=== PATIENT | female | born 1965 | race African-American/Black ===

== ENCOUNTER 2016-06-04 12:30 | Emergency (ER) | payer OTHER ==
[2016-06-04] MEDS ORDERED: Ondansetron ODT TAB* 4 MG PO ONE (12:45)
[2016-06-04 13:12] LABS: Hematocrit 36 % (35-47); Hemoglobin 11.8 g/dl (12.0-16.0); Mean Corpuscular HGB Conc 33 g/dl (31-36); Mean Corpuscular Hemoglobin 28 pg (27-31); Mean Corpuscular Volume 85 fL (80-97); Mean Platelet Volume 7 um3 (7.4-10.4); Red Blood Count 4.18 10^6/ul (4.0-5.4); Red Cell Distribution Width 13 % (10.5-15); White Blood Count 5.9 10^3/ul (3.5-10.8)
[2016-06-04 13:20] LABS: Urine Bacteria 1+ (Absent); Urine Bilirubin Negative (Negative); Urine Glucose Negative (Negative); Urine Nitrite Positive (Negative)
[2016-06-04 13:26] LABS: Albumin 4.5 g/dL (3.2-5.2); C Reactive Protein 4.17 mg/L (< 5.00); Calcium 10.2 mg/dL (8.6-10.3); EGFR Non-African American 80.9 (>60); Globulin 3.8 g/dL (2-4); Potassium 3.7 mmol/L (3.5-5.0); Total Bilirubin 0.4 mg/dL (0.2-1.0); Total Protein 8.3 g/dL (6.4-8.9)
[2016-06-04] MEDS ORDERED: Sulfamethox/Trimethoprim DS 800/160* TAB PO ONE (13:41)
[2016-06-04] MEDS ORDERED: metroNIDAZOLE TAB* 250 MG PO ONE (13:42)
--- NOTE | 2016-06-04 13:59 | ED ---
Leopoldo Lee Claudia, scribed for Robert Sánchez MD on 06/04/16 at 1247 . GI/ HPI - HPI Summary HPI Summary: 50 year old female presents to the ED with GIGU Sx. Pt notes dysuria, increase in frequency, nausea, dull diffuse abd pain, and yellow vaginal discharge. Pt notes gradual onset of Sx over the past week. She states that she has 1 sexual partner. Pt notes her last menstrual cycle was at the end of April. - History of Current Complaint Chief Complaint: EDUrogenitalProblems Time Seen by Provider: 06/04/16 12:38 Stated Complaint: POSSIBLE UTI Hx Obtained From: Patient Onset/Duration: Started Days Ago, Still Present Timing: Lasting Days Pain Intensity: 7 Location of Pain: Diffuse - abd pain Pain Characteristics: Dull Associated Signs and Symptoms: Positive: Nausea, Discharge, Dysuria, Abdominal Pain Additional Signs & Symptoms: Positive: Vaginal Discharge - Allergy/Home Medications Allergies/Adverse Reactions: Allergies Allergy/AdvReac Type Severity Reaction Status Date / Time SHRIMP Allergy Swelling Uncoded 06/04/16 12:32 Of Face,Lips,& Throat PMH/Surg Hx/FS Hx/Imm Hx Previously Healthy: Yes Endocrine/Hematology History: Denies: Hx Anticoagulant Therapy, Hx Diabetes, Hx Systemic Lupus Erythematosus, Hx Thyroid Disease Cardiovascular History: Reports: Hx Hypertension, Other Cardiovascular Problems/ Disorders - CARDIO MYOPATHY Denies: Hx Pacemaker/ICD Respiratory History: Denies: Hx Asthma, Hx Chronic Obstructive Pulmonary Disease (COPD) History: Denies: Hx Dialysis, Hx Renal Disease Musculoskeletal History: Denies: Hx Rheumatoid Arthritis Neurological History: Denies: Hx Dementia, Hx Seizures Psychiatric History: Denies: Hx Substance Abuse - Cancer History Hx Chemotherapy: No Hx Radiation Therapy: No - Surgical History Surgery Procedure, Year, and Place: Bilateral knee surgeries age 13, Infectious Disease History: No Infectious Disease History: Denies: Traveled Outside the [place] in Last 30 Days - Family History Known Family History: Positive: Hypertension, Diabetes - Social History Occupation: Employed Full-time Lives: With Family Alcohol Use: None Substance Use Type: Reports: None Smoking Status (MU): Never Smoked Tobacco Review of Systems Constitutional: Negative Eyes: Negative ENT: Negative Cardiovascular: Negative Respiratory: Negative Positive: Abdominal Pain, Nausea Positive: burning, dysuria, discharge, urgency Musculoskeletal: Negative Skin: Negative Neurological: Negative Psychological: Normal All Other Systems Reviewed And Are Negative: Yes Physical Exam - Summary Physical Exam Summary: VITAL SIGNS: Reviewed. GENERAL: Patient is a well developed and nourished who is lying comfortable in the stretcher. Patient is not in any acute respiratory distress. HEAD AND FACE: Normocephalic and atraumatic. EYES: PERRLA, EOMI x 2, No injected conjunctiva. EARS: Hearing grossly intact. Ear canals and tympanic membranes are WNL. MOUTH: Oropharynx within normal limits. NECK: Supple, trachea is midline, no adenopathy, no JVD. CHEST: Symmetric, no tenderness at palpation LUNGS: Clear to auscultation bilaterally. No wheezing or crackles. CVS: RRR,, S1 and S2 present, no murmurs or gallops appreciated. ABDOMEN: Soft, non-tender. No signs of distention. Positive bowel sounds. No rebound no guarding, and no masses palpated. No abdominal bruit or pulsations. EXTREMITIES: FROM in all major joints, no edema, no cyanosis or clubbing. NEURO: Alert and oriented x 3. No acute neurological deficits. Speech is normal. SKIN: Dry and warm RN COMMUNITY: Female building certifier is present during the examination. External genitalia: within normal limits. No rashes, lesions or ecchymosis. Speculum exam: vaginal kwon with no lesions, masses, or rashes. Positive mild white discharge. Cervix normal. No CMTs. No adnexal masses. All cultures were collected and send to the lab. Triage Information Reviewed: Yes Vital Signs On Initial Exam: Initial Vitals Temp Pulse Resp BP Pulse Ox 98.0 F 76 18 144/91 100 06/04/16 12:32 06/04/16 12:32 06/04/16 12:32 06/04/16 12:32 06/04/16 12:32 Vital Signs Reviewed: Yes Diagnostics - Vital Signs Vital Signs Temp Pulse Resp BP Pulse Ox 06/04/16 12:32 98.0 F 76 18 144/91 100 - Laboratory Result Diagrams: 06/04/16 13:01 06/04/16 13:01 Lab Statement: Any lab studies that have been ordered have been reviewed, and results considered in the medical decision making process. Re-Evaluation - Re-Evaluation 1 Re-Evaluation Time: 13:54 Change: Improved Comment: Urine Analysis results are discussed with the patient. She notes that she is feeling much better and is ready to be d/c home. GIGU Course/Dx - Course Assessment/Plan: 50 YEAR OLD FEMALE PRESNETS WITH A CHIEF COMPLAINT OF DYSURA, URINE FREQUENCY AND VAGINAL DISCHARGE. WORKUP WAS WITHIN NML LIMITS EXCEPT FOR HYPONATREMIA. I WILL ALSO BE TREATING PATIENT WITH METRONIDAZOLE FOR BACTERIAL VAGNIOSIS. PT WILL BE GIVEN BACTRUM FOR UTI. I DID SEND CULTURES FOR CHLAMYDIA AND TRICHOMONAS WHICH WILL BE FOLLWED BY PCP. PT ALSO BECAME NAUSEOUS AND WAS GIVEN ZOFRAN AND IMPORVED SIGNIFICANTLY. I discussed all the findings and test results with the patient and patient. Patient was instructed to return to the emergency room immediately if any of the symptoms return or worsens. They understand and agree. They were explained the possibility of an early abdominal pathology which was not detected at this time despite the physical exam and testing. They understand and agree. Abdominal exam before discharge: Soft,NT. No signs of distention. BS present. No rebound no guarding, and no masses palpated. Patient is alert and oriented. Patient is hemodynamically stable. Patient is to follow up with primary care physician . Patient and patients parents agree and understands. - Diagnoses Differential Diagnoses - Female: STD, Urinary Tract Infection, Vaginitis Provider Diagnoses: UTI (urinary tract infection), BV (bacterial vaginosis) Discharge - Discharge Plan Condition: Stable Disposition: HOME Prescriptions: Sulfamethox/Trimethoprim DS* [Bactrim DS 800/160 TAB*] 1 tab PO BID #10 tab metroNIDAZOLE TAB* [Flagyl 250 mg TAB*] 500 mg PO QID #14 tab Patient Education Materials: Urinary Tract Infection in Women (ED), Bacterial Vaginosis (ED), Sulfamethoxazole/Trimethoprim (By mouth), Metronidazole (By mouth) Referrals: Haylee Cordero MD [Primary Care Provider] - 2 Days (Follow-up ) The documentation as recorded by the Leopoldo chatterjee Claudia accurately reflects the service I personally performed and the decisions made by me, Robert Sánchez MD.
[2016-06-04 14:15] VITALS: BP 129/86
--- NOTE | 2016-06-09 09:45 | PN ---
Progress Note - Progress Note Note: Patient is on Bactrim which is shown to be sensitive on his cultures. No further action needed.
== END 2016-06-04 14:14 | disposition home or self-care (01) ==
LOC: ED 12:30
DX: N39.0 Urinary tract infection, site not specified (principal); N76.0 Acute vaginitis; I10 Essential (primary) hypertension; I42.9 Cardiomyopathy, unspecified
CPT/HCPCS: 36415; 80053; 81003; 81015; 85025; 86140; 87077; 87086; 87184; 87186; 87480; 87491; 87510; 87591; 87661; A9270-GY

== ENCOUNTER 2016-08-18 07:35 | Emergency (ER) | payer OTHER ==
[2016-08-18 08:34] LABS: Hematocrit 35 % (35-47); Hemoglobin 11.9 g/dl (12.0-16.0); Mean Corpuscular HGB Conc 34 g/dl (31-36); Mean Corpuscular Hemoglobin 29 pg (27-31); Mean Corpuscular Volume 85 fL (80-97); Mean Platelet Volume 7 um3 (7.4-10.4); Red Blood Count 4.09 10^6/ul (4.0-5.4); Red Cell Distribution Width 13 % (10.5-15); White Blood Count 3.5 10^3/ul (3.5-10.8)
[2016-08-18 08:36] LABS: Urine Bilirubin Negative (Negative); Urine Glucose Negative (Negative); Urine Nitrite Negative (Negative)
[2016-08-18] MEDS: NS 0.9% 1000 ML* 2,000 ML IV ONE ×2 (08:38→10:16)
[2016-08-18 08:50] LABS: ALT 17 U/L (7-52); AST 18 U/L (13-39); Albumin 4.3 g/dL (3.2-5.2); Alkaline Phosphatase 33 U/L (34-104); Amylase 47 U/L (29-103); Anion Gap 5 mmol/L (2-11); BUN/Creatinine Ratio 15.5 (8-20); Blood Urea Nitrogen 13 mg/dL (6-24); C Reactive Protein < 1.00 mg/L (< 5.00); CO2 Carbon Dioxide 25 mmol/L (22-32); Calcium 9.9 mg/dL (8.6-10.3); Chloride 103 mmol/L (101-111); EGFR African American 92.3 (>60); EGFR Non-African American 71.8 (>60); Glucose 97 mg/dL (70-100); Lipase 33 U/L (11.0-82.0); Potassium 3.8 mmol/L (3.5-5.0); Sodium 133 mmol/L (133-145); Total Protein 8.3 g/dL (6.4-8.9)
[2016-08-18] MEDS ORDERED: Ketorolac INJ* 30 MG/ML 1 ML VIAL IV PUSH ONE ×2 (09:42→11:15)
--- NOTE | 2016-08-18 09:49 | ED ---
Abdominal Pain/Female - HPI Summary HPI Summary: 51 female presents with complaints of LLQ pain that began yesterday afternoon while at work 08/17/16. Patient states she has been having dull achey lower abdominal pain for the past couple of weeks but nothing to the extent of this pain. The pain is described as dull ache that gets worse with movement of her legs and with position. She denies vomiting, admits to some intermittent nausea. Denies fever/chills, blood in stool and urinary symptoms. States the pain radiates into her left lower back/flank and anus. Admits to some vaginal discharge that is yellow/brown in color. Denies blood and discomfor at this time. Denies history of kidney stones. Admits to ovarian cyst history. Does not know if she is . Still has menstrual cycles LMP approximately 1 month ago. States her stool has been normal just has become more frequent. Took Tylenol PM last night for the pain and had little relief. Ate spinach for dinner however admits to eating a lot of nuts. Denies constipation. PMHx significant for cardiomyopathy and HTN. Does not admit to any GI issues. Pain is constant but has not gotten progressively worse. - History of Current Complaint Chief Complaint: EDAbdPain Stated Complaint: ABD PAIN Time Seen by Provider: 08/18/16 09:12 Hx Obtained From: Patient Hx Last Menstrual Period: Beginning of 07/2016 ?: No Onset/Duration: Sudden Onset Timing: Constant Severity Initially: Mild Severity Currently: Moderate Pain Intensity: 9 Pain Scale Used: 0-10 Numeric Location: Discrete At: LLQ Radiates: Yes Radiates to: Back, Flank Character: Sharp, Dull Aggravating Factor(s): Movement Alleviating Factor(s): Position Associated Signs and Symptoms: Positive: Nausea Allergies/Adverse Reactions: Allergies Allergy/AdvReac Type Severity Reaction Status Date / Time SHRIMP Allergy Swelling Uncoded 06/04/16 12:32 Of Face,Lips,& Throat PMH/Surg Hx/FS Hx/Imm Hx Endocrine/Hematology History: Denies: Hx Anticoagulant Therapy, Hx Diabetes, Hx Systemic Lupus Erythematosus, Hx Thyroid Disease Cardiovascular History: Reports: Hx Hypertension, Other Cardiovascular Problems/ Disorders - CARDIO MYOPATHY Denies: Hx Pacemaker/ICD Respiratory History: Denies: Hx Asthma, Hx Chronic Obstructive Pulmonary Disease (COPD) History: Reports: Other Problems/Disorders - ovarian cyst hx Denies: Hx Dialysis, Hx Renal Disease Musculoskeletal History: Denies: Hx Rheumatoid Arthritis Neurological History: Denies: Hx Dementia, Hx Seizures Psychiatric History: Denies: Hx Substance Abuse - Cancer History Hx Chemotherapy: No Hx Radiation Therapy: No - Surgical History Surgery Procedure, Year, and Place: Bilateral knee surgeries age 13, Infectious Disease History: No Infectious Disease History: Denies: Traveled Outside the [place] in Last 30 Days - Family History Known Family History: Positive: Hypertension, Diabetes - Social History Alcohol Use: None Substance Use Type: Reports: None Smoking Status (MU): Never Smoked Tobacco Review of Systems Constitutional: Negative Eyes: Negative ENT: Negative Cardiovascular: Negative Respiratory: Negative Positive: Abdominal Pain, Nausea Positive: pain - anus , other - vaginal discharge Musculoskeletal: Negative Skin: Negative Neurological: Negative Psychological: Normal All Other Systems Reviewed And Are Negative: Yes Physical Exam Triage Information Reviewed: Yes Vital Signs On Initial Exam: Initial Vitals Temp Pulse Resp BP Pulse Ox 96.3 F 79 20 142/91 100 08/18/16 07:37 08/18/16 07:37 08/18/16 07:37 08/18/16 07:37 08/18/16 07:37 Vital Signs Reviewed: Yes Appearance: Positive: Well-Appearing, Well-Nourished, Pain Distress - mild Skin: Positive: Warm, Skin Color Reflects Adequate Perfusion, Dry Head/Face: Positive: Normal Head/Face Inspection Eyes: Positive: Normal, Conjunctiva Clear ENT: Positive: Normal ENT inspection, Hearing grossly normal Neck: Positive: Supple, Nontender, No Lymphadenopathy Respiratory/Lung Sounds: Positive: Clear to Auscultation, Breath Sounds Present Cardiovascular: Positive: Normal, RRR, Pulses are Symmetrical in both Upper and Lower Extremities Abdomen Description: Positive: No Organomegaly, Soft, Other: - mild tenderness on palpation of LLQ, pain with movement of lower extremities and changing position. negative rovsings, rebound and psoas. negative scott's. skin intact, no obvious deformities or ecchymosis.. Negative: Bruit, CVA Tenderness (R), CVA Tenderness (L), Distended, Guarding, McBurney's Point Tenderness, Peritoneal Signs Bowel Sounds: Positive: Present Pelvic Exam: Positive: external exam normal, speculum exam normal - tender during exam, with bleeding from cervical os, bimanual exam normal, no cerv. motion tender, no masses, active bleeding, blood, discharge - blood, brown discharge., tender uterus, other - cultures obtained and sent. Negative: tender adnexa Musculoskeletal: Positive: Normal, Strength/ROM Intact Neurological: Positive: Normal, Sensory/Motor Intact, Alert, Oriented to Person Place, Time Psychiatric: Positive: Normal, Affect/Mood Appropriate - Irene Coma Scale Coma Scale Total: 15 Diagnostics - Vital Signs Vital Signs Temp Pulse Resp BP Pulse Ox 08/18/16 09:00 65 130/85 100 08/18/16 08:30 68 124/80 99 08/18/16 08:14 159 88 08/18/16 08:13 128/84 08/18/16 07:37 96.3 F 79 20 142/91 100 - Laboratory Lab Results: Lab Results 08/18/16 08/18/16 08/18/16 Range/Units 08:20 08:20 08:20 WBC 3.5 (3.5-10.8) 10^3/ul RBC 4.09 (4.0-5.4) 10^6/ul Hgb 11.9 L (12.0-16.0) g/dl Hct 35 (35-47) % MCV 85 (80-97) fL MCH 29 (27-31) pg MCHC 34 (31-36) g/dl RDW 13 (10.5-15) % Plt Count 263 (150-450) 10^3/ul MPV 7 L (7.4-10.4) um3 Neut % (Auto) 49.4 (38-83) % Lymph % (Auto) 33.1 (25-47) % [place] % (Auto) 10.4 H (1-9) % Eos % (Auto) 5.7 (0-6) % Baso % (Auto) 1.4 (0-2) % Absolute Neuts (auto) 1.7 (1.5-7.7) 10^3/ul Absolute Lymphs (auto) 1.2 (1.0-4.8) 10^3/ul Absolute Monos (auto) 0.4 (0-0.8) 10^3/ul Absolute Eos (auto) 0.2 (0-0.6) 10^3/ul Absolute Basos (auto) 0 (0-0.2) 10^3/ul Absolute Nucleated RBC 0 10^3/ul Nucleated RBC % 0.1 Sodium 133 (133-145) mmol/L Potassium 3.8 (3.5-5.0) mmol/L Chloride 103 (101-111) mmol/L Carbon Dioxide 25 (22-32) mmol/L Anion Gap 5 (2-11) mmol/L BUN 13 (6-24) mg/dL Creatinine 0.84 (0.51-0.95) mg/dL Est GFR ( Amer) 92.3 (>60) Est GFR (Non-Af Amer) 71.8 (>60) BUN/Creatinine Ratio 15.5 (8-20) Glucose 97 (70-100) mg/dL Lactic Acid (0.5-2.0) mmol/L Calcium 9.9 (8.6-10.3) mg/dL Total Bilirubin 0.70 (0.2-1.0) mg/dL AST 18 (13-39) U/L ALT 17 (7-52) U/L Alkaline Phosphatase 33 L (34-104) U/L C-Reactive Protein < 1.00 (< 5.00) mg/L Total Protein 8.3 (6.4-8.9) g/dL Albumin 4.3 (3.2-5.2) g/dL Globulin 4.0 (2-4) g/dL Albumin/Globulin Ratio 1.1 (1-3) Amylase 47 (29-103) U/L Lipase 33 (11.0-82.0) U/L Beta HCG, Quant Pending Urine Color Yellow Urine Appearance Cloudy Urine pH 8.0 (5-9) Ur Specific [place] 1.010 (1.010-1.030) Urine Protein Negative (Negative) Urine Ketones Negative (Negative) Urine Blood Negative (Negative) Urine Nitrate Negative (Negative) Urine Bilirubin Negative (Negative) Urine Urobilinogen Negative (Negative) Ur Leukocyte Esterase Negative (Negative) Urine Glucose Negative (Negative) 08/18/16 Range/Units 08:20 WBC (3.5-10.8) 10^3/ul RBC (4.0-5.4) 10^6/ul Hgb (12.0-16.0) g/dl Hct (35-47) % MCV (80-97) fL MCH (27-31) pg MCHC (31-36) g/dl RDW (10.5-15) % Plt Count (150-450) 10^3/ul MPV (7.4-10.4) um3 Neut % (Auto) (38-83) % Lymph % (Auto) (25-47) % [place] % (Auto) (1-9) % Eos % (Auto) (0-6) % Baso % (Auto) (0-2) % Absolute Neuts (auto) (1.5-7.7) 10^3/ul Absolute Lymphs (auto) (1.0-4.8) 10^3/ul Absolute Monos (auto) (0-0.8) 10^3/ul Absolute Eos (auto) (0-0.6) 10^3/ul Absolute Basos (auto) (0-0.2) 10^3/ul Absolute Nucleated RBC 10^3/ul Nucleated RBC % Sodium (133-145) mmol/L Potassium (3.5-5.0) mmol/L Chloride (101-111) mmol/L Carbon Dioxide (22-32) mmol/L Anion Gap (2-11) mmol/L BUN (6-24) mg/dL Creatinine (0.51-0.95) mg/dL Est GFR ( Amer) (>60) Est GFR (Non-Af Amer) (>60) BUN/Creatinine Ratio (8-20) Glucose (70-100) mg/dL Lactic Acid 0.4 L (0.5-2.0) mmol/L Calcium (8.6-10.3) mg/dL Total Bilirubin (0.2-1.0) mg/dL AST (13-39) U/L ALT (7-52) U/L Alkaline Phosphatase (34-104) U/L C-Reactive Protein (< 5.00) mg/L Total Protein (6.4-8.9) g/dL Albumin (3.2-5.2) g/dL Globulin (2-4) g/dL Albumin/Globulin Ratio (1-3) Amylase (29-103) U/L Lipase (11.0-82.0) U/L Beta HCG, Quant Urine Color Urine Appearance Urine pH (5-9) Ur Specific [place] (1.010-1.030) Urine Protein (Negative) Urine Ketones (Negative) Urine Blood (Negative) Urine Nitrate (Negative) Urine Bilirubin (Negative) Urine Urobilinogen (Negative) Ur Leukocyte Esterase (Negative) Urine Glucose (Negative) Result Diagrams: 08/18/16 08:20 08/18/16 08:20 Lab Statement: Any lab studies that have been ordered have been reviewed, and results considered in the medical decision making process. - CT abdomen/pelvis CT Interpretation: No Acute Changes - 1. NO EVIDENCE FOR ACUTE FINDING OR CAUSE FOR THE PATIENT'S ABDOMINAL PAIN IS SEEN. 2. CHRONIC RIGHT RENAL CORTICAL SCARRING. 3. SMALL HEPATIC CYSTS AND SMALL HYPERVASCULAR LESIONS MOST CONSISTENT WITH HEMANGIOMAS. CT Interpretation Completed By: Radiologist - Ultrasound No standard instances Ultrasound Interpretation: Positive (See Comments) - Interval enlargement of uterine fibroids compared with the 2015 exam. Normal endometrium thickness. Physiologic small volume of free fluid. No suspicious ovarian or extraovarian adnexal region lesions evident. 8.0 x 5.2 x 6.2 cm retroverted uterus. 7 mm endometrium. 2.6 x 1.5 x 1.9 cm RIGHT posterior fundal myometrial fibroid increased from 1.4 x 1.0 x 1.7 cm previously. 0.6 x 0.4 x 0.7 cm LEFT anterior fundal myometrial fibroid increased from 0.4 x 0.4 x 0.4 cm previously. 2.4 x 1.9 x 2.1 cm RIGHT ovary with documented vascular flow is remarkable for small follicles and a low suspicion 2 mm calcification likely representing dystrophic calcification related to a previous ovulation site or a phlebolith. No suspicious lesions of the RIGHT ovary evident. 3.4 x 1.0 x 1.8 cm LEFT ovary with documented vascular flow is remarkable for small follicles only. No visualized extra ovarian adnexal region lesions evident. Ultrasound Interpretation Completed By: Radiologist Re-Evaluation - Re-Evaluation First Eval Re-Evaluation Time: 11:20 Change: Improved - patient had some relief from pain Second Eval Re-Evaluation Time: 12:45 Change: Worse - pain was starting to come back, request more pain medication Third Eval Re-Evaluation Time: 14:20 Change: Improved Comment: patient's pain has subsided, does admit to some bloody discharge from vagina since first evaluation Fourth Eval Re-Evaluation Time: 15:00 Change: Improved - patient was feeling better, ready to be d/c Abdominal Pain Fem Course/Dx - Course Course Of Treatment: Patient was given toradol for pain through IV along with fluids. Labs, UA, Trasnvaginal U/S and CT ordered. U/s shows uterine fibroids that have increased in size since last imaging study. Patient later complained of vaginal bleeding that was confirmed with pelvic exam. Hard to determine whether this is due to menstraul cycle or uterine fibroids, or both. Dr Augustine was called to discuss his embolization procedure with patient. Patient was given referral and information to make an appointment. Was given pain management until seen by OBGYN and aware of worsening signs and symptoms. - Diagnoses Differential Diagnosis: Positive: Appendicitis, Constipation, Diverticulitis, Pelvic Inflammatory Disease, , Urinary Tract Infection Provider Diagnoses: Uterine fibroid, LLQ abdominal pain - Provider Notifications Discussed Care Of Patient With: Dr Auugstine Time Discussed With Above Provider: 15:30 Instructed by Provider To: Have Pt Call For Appt. Discharge - Discharge Plan Condition: Stable Disposition: HOME Prescriptions: Ibuprofen TAB* [Motrin TAB* 800 MG] 800 mg PO Q6H #30 tab Patient Education Materials: Uterine Fibroids (ED) Referrals: Haylee Cordero MD [Primary Care Provider] - Osiel Augustine MD [Medical Doctor] - Twan Camacho MD [Medical Doctor] - Additional Instructions: Take prescribed pain medication to help with pain. Drink plenty of fluids. Call Dr Augustine's office to make an appointment for procedure to treat your fibroids. Make an appointment with your OBGYN or referred OBGYN to further evaluate and treat your uterine fibroids. If pain becomes more severe, you develop new symptoms such as fever/chills, excessive bleeding no related to menstraul cycle or fibroids please seek medical attention.
--- NOTE | 2016-08-18 11:28 | RAD ---
Indication: LEFT lower quadrant pain since yesterday. Comparison: January 25, 2016 CT and May 07, 2015 ultrasound. Technique: Transvaginal pelvic ultrasound. Report: Physiologic small volume of free pelvic fluid. 8.0 x 5.2 x 6.2 cm retroverted uterus. 7 mm endometrium. 2.6 x 1.5 x 1.9 cm RIGHT posterior fundal myometrial fibroid increased from 1.4 x 1.0 x 1.7 cm previously. 0.6 x 0.4 x 0.7 cm LEFT anterior fundal myometrial fibroid increased from 0.4 x 0.4 x 0.4 cm previously. 2.4 x 1.9 x 2.1 cm RIGHT ovary with documented vascular flow is remarkable for small follicles and a low suspicion 2 mm calcification likely representing dystrophic calcification related to a previous ovulation site or a phlebolith. No suspicious lesions of the RIGHT ovary evident. 3.4 x 1.0 x 1.8 cm LEFT ovary with documented vascular flow is remarkable for small follicles only. No visualized extra ovarian adnexal region lesions evident. IMPRESSION: Interval enlargement of uterine fibroids compared with the 2015 exam. Normal endometrium thickness. Physiologic small volume of free fluid. No suspicious ovarian or extraovarian adnexal region lesions evident.
[2016-08-18] MEDS ORDERED: Iohexol 300* (CONTRAST) 10 ML SDV IV ONE (12:23)
--- NOTE | 2016-08-18 14:20 | RAD ---
INDICATION: Left lower quadrant abdominal pain. COMPARISON: Comparison is made with a prior CT of the abdomen and pelvis from January 25, 2016. Correlation is also made with an exam from August 13, 2011. TECHNIQUE: A CT scan of the abdomen and pelvis was performed with intravenous and oral contrast following intravenous injection of 98 ml of Omnipaque 300 nonionic contrast. Contiguous axial sections were obtained from the lung bases through the symphysis pubis. Images were reconstructed in the coronal and sagittal planes. FINDINGS: There is mild dependent bilateral lower lobe subsegmental atelectasis. No pleural effusion is present. The liver and spleen are normal in size. There is a hypervascular lesion present in the anterior portion of the left hepatic lobe measuring 1 cm in size which is well seen on the study from 2011 and unchanged and therefore consistent with a hemangioma as previously noted. There is also a small 0.3 cm hypervascular lesion present in the lateral aspect of the right hepatic lobe which is not well-defined on the prior studies although also likely represents a small hemangioma. There are several small scattered hypodense lesions within the liver most consistent with subcentimeter cysts. These appear similar to the prior study. No calcified gallstones are seen. The pancreas appears within normal limits. There is focal cortical thinning and scarring in the mid lateral aspect of the right kidney which appears unchanged. No renal calculi or hydronephrosis is seen. There are several small subcentimeter bilateral renal cysts. The adrenal glands appear to be within normal limits. The aorta is tortuous and normal in caliber and demonstrates homogeneous contrast opacification. No significant enlarged retroperitoneal lymph nodes are seen. The stomach, small and large bowel appear nondistended. The appendix is within normal limits. There is mild descending and sigmoid diverticulosis without evidence for diverticulitis. There is a small periumbilical hernia containing fat. The uterus is retroverted and normal in size. No free intraperitoneal air or fluid is seen. No significant focal osseous abnormality is seen. IMPRESSION: 1. NO EVIDENCE FOR ACUTE FINDING OR CAUSE FOR THE PATIENT'S ABDOMINAL PAIN IS SEEN. 2. CHRONIC RIGHT RENAL CORTICAL SCARRING. 3. SMALL HEPATIC CYSTS AND SMALL HYPERVASCULAR LESIONS MOST CONSISTENT WITH HEMANGIOMAS.
[2016-08-18 16:09] VITALS: BP 146/70
== END 2016-08-18 15:41 | disposition home or self-care (01) ==
LOC: ED 07:35
DX: R10.32 Left lower quadrant pain (principal); D25.9 Leiomyoma of uterus, unspecified
CPT/HCPCS: 36415; 74177; 76830; 80053; 81003; 82150; 83605; 83690; 84702; 85025; 86140; 87480; 87491; 87510; 87591; 96374; 96375; 99284; J1885; Q9967

== ENCOUNTER 2017-08-11 06:53 | Observation (INO) | payer OTHER ==
[2017-08-11] MEDS ORDERED: LORazepam TAB(*) 1 MG ONE (07:38)
[2017-08-11] MEDS ORDERED: NS 0.9% 1000 ML/HR X 1 BAG (TOTAL 1000 ML) IV ONE (08:00)
[2017-08-11] MEDS ORDERED: Scopolamine 1.5 mg* PATCH ONE (08:03)
[2017-08-11] MEDS ORDERED: oxyCODONE SR TAB(*) 10 MG TAB.SR ONE (08:04)
[2017-08-11] MEDS ORDERED: Ondansetron INJ* 2 MG/ML VIAL ONE ×2 (08:04→08:56)
[2017-08-11] MEDS ORDERED: Naproxen TAB* 250 MG ONE (08:04)
[2017-08-11 08:08] LABS: ABS Basophils 0 10^3/ul (0-0.2); ABS Eosinophils 0.1 10^3/ul (0-0.6); ABS Lymphocytes 1.1 10^3/ul (1.0-4.8); ABS Monocytes 0.4 10^3/ul (0-0.8); ABS Neutrophils 2.1 10^3/ul (1.5-7.7); ABS Nucleated RBC 0 10^3/ul; Eosinophil % 3.6 % (0-6); Hematocrit 33 % (35-47); Hemoglobin 11.4 g/dl (12.0-16.0); Lymphocyte % 29.3 % (25-47); Mean Corpuscular HGB Conc 34 g/dl (31-36); Mean Corpuscular Hemoglobin 29 pg (27-31); Mean Corpuscular Volume 84 fL (80-97); Mean Platelet Volume 7 um3 (7.4-10.4); Nucleated Red Blood Cells % 0.1; Platelet Count 269 10^3/ul (150-450); Red Blood Count 3.98 10^6/ul (4.0-5.4); Red Cell Distribution Width 13 % (10.5-15); White Blood Count 3.9 10^3/ul (3.5-10.8)
[2017-08-11 08:09] LABS: INR 0.98 (0.77-1.02)
[2017-08-11] MEDS ORDERED: Clindamycin 900 MG IVPREMIX(* 900 MG/50 ML SDV IV ONE (08:15)
[2017-08-11] MEDS ORDERED: Heparin 2 UNITS/ML IVPREMIX* 2,000 ML IV ONE (08:30)
[2017-08-11] MEDS ORDERED: Iohexol 350 (CONTRAST) 200 ML MDV IV ONE (08:30)
[2017-08-11] MEDS ORDERED: Lidocaine 1% INJ* 10 MG/ML 30 ML SDV ONE (08:30)
[2017-08-11] MEDS ORDERED: fentaNYL* 50 MCG/ML 5 ML VIAL (250 MCG VIAL) ONE (08:56)
[2017-08-11] MEDS ORDERED: Ketorolac INJ* 30 MG/ML 1 ML VIAL ONE ×2 (08:56→12:10)
[2017-08-11] MEDS ORDERED: Midazolam* 1 MG/ML 10 ML VIAL (10 MG) ONE (08:56)
[2017-08-11] MEDS ORDERED: NS 0.45% KCl 20 Meq 1000 ML* 1,000 ML IV SCH (09:00)
[2017-08-11] MEDS ORDERED: nitroGLYCERIN DRIP* 25,000 MCG/250 ML BTL ONE (09:07)
[2017-08-11] MEDS ORDERED: HYDROmorphone PCA* 20 MG/20 ML PCA.SYRING ONE (09:59)
[2017-08-11] MEDS ORDERED: fentaNYL* 50 MCG/ML 2 ML VIAL (100 MCG VIAL) ONE (10:58)
[2017-08-11] MEDS ORDERED: Heparin 2 UNITS/ML IVPREMIX* 1,000 ML IV ONE (11:28)
[2017-08-11] MEDS ORDERED: HYDROmorphone PCA* 20 MG/20 ML PCA.SYRING PCA SCH (12:00)
[2017-08-11] MEDS: NS 0.9% 1000 ML* 1,000 ML IV SCH ×2 (13:00→20:40)
[2017-08-11] MEDS: Ondansetron INJ* 2 MG/ML VIAL IV SCH ×2 (14:24→20:25)
[2017-08-11] MEDS: Ketorolac INJ* 15 MG/ML 1 ML VIAL IV PUSH SCH ×2 (14:32→20:21)
--- NOTE | 2017-08-11 16:34 | RAD ---
CPT II Codes: 6045F Procedure(s) performed: * Pelvic arteriogram including the bilateral iliac arteries including the proximal portions of the superficial femoral arteries and femoral profundi. * Catheter arteriography of the bilateral uterine arteries. * Catheter embolization of the right uterine artery only. Date of service: August 11, 2017 Indication for procedure: Menstrual pain and heavy menstrual bleeding in the presence of uterine fibroids Comparison: MRI of the pelvis June 09, 2017 Contrast: 130 mL Omnipaque 350 Fluoroscopy Time: 54.6 minutes Vessels Accessed: Percutaneous access was obtained with ultrasound guidance in the right common femoral artery in the retrograde direction towards the heart. Catheter arteriography was performed with the catheter tip in the following arteries: Bilateral internal iliac arteries, left external iliac artery and Bilateral uterine arteries. Anesthesia: Conscious sedation with IV Fentanyl and Versed as well as local 1% lidocaine injected locally at the arteriotomy site. Conscious sedation time: Timeout: 926 hours Case end: 1226 hours Total conscious sedation time: 3 hours Additional medications: * 425. mcg IA nitroglycerin injected intermittently throughout the course of the procedure to alleviate arterial spasm. * Intra-arterial Toradol, 15 mg injected into the right uterine artery. * Intravenous Toradol, 15 mg. * Prior to the procedure the patient received: Ativan 1 mg p.o. Naproxen sodium 250 mg p.o. OxyContin 10 mg p.o. Scopolamine patch 1.5 mg transdermal applied to the mastoid process. Zofran 4 mg IV Antibiotic prophylaxis was provided by Clindamycin 900 mg IV PROCEDURE NOTE AND INTRAPROCEDURAL IMAGING FINDINGS: Immediately prior to the procedure the patient signed consent after thoroughly discussing all risks and benefits. The patient was positioned on the fluoroscopy table in the supine position and the bilateral groins were shaved, prepped and draped in standard sterile fashion. Using fluoroscopic imaging the location of the right common femoral head was marked externally with a skin marker on the patient's groin. Utilizing sonographic guidance and palpation the right common femoral artery was cannulated overlying the right femoral head with an 21-gauge needle. An ultrasound image was saved. A microwire was slowly and smoothly advanced to the aortic bifurcation under fluoroscopic imaging. No buckling of the wire was visualized to indicate dissection. Over the wire a 5-Bulgarian catheter was advanced into the artery, the inner stiffener removed and the microwire was replaced with a 0.035" Bentsen wire which was advanced into the aorta. Finally the 5 Bulgarian catheter was exchanged for a 5 Bulgarian sidearm sheath. Utilizing a 0.035" wire and 5-Bulgarian C2 catheter the contralateral left common iliac artery was accessed. The wire was advanced under fluoroscopic control to the proximal left superficial femoral artery. The C2 catheter was removed and over the wire a 5 Bulgarian Merit Impress catheter was advanced over the iliac bifurcation and the reverse curve was formed in the lower abdominal aorta. Utilizing the reverse curve catheter and the wire the ipsilateral right common iliac artery was selected. With the tip of the catheter in the proximal most portion of the right internal iliac artery, angiography was performed to detail the branches of the right internal iliac artery and to locate the ostium of the right uterine artery. Arteriograms in multiple oblique projections were performed to best discern the branch point of the uterine artery. Once the uterine artery was identified, a microcatheter and microwire were advanced into the parent catheter and, in conjunction with contrast angiography, the uterine artery was identified and selected with the microcatheter and wire system. Prior to embolization, contrast injection into the horizontal portion of the uterine artery demonstrated no large, obvious collateral blood flow to the ovary or a definite cervicovaginal branch descending inferiorly. Intra-arterial nitroglycerin was injected intermittently to alleviate arterial spasm. Under fluoroscopic control approximately 1/2 vial Embozenes 500 um and 1/2 vial Embozenes 700 um were slowly injected into the right uterine artery to near complete stasis. Towards the end of embolization 15 mg of Toradol was injected intra-arterially. The microcatheter was pulled back into the more proximal descending portion of the uterine artery and contrast angiography depicted near complete stasis of the uterine artery. The microcatheter and microwire were removed. Contrast arteriography through the 5-Bulgarian catheter in the right internal iliac artery demonstrated patency and brisk flow through all branches of the internal iliac artery with the exception of the right uterine artery which demonstrates near complete stasis. The 0.035" wire was reinserted into the 5-Bulgarian catheter and the system was utilized to access the contralateral left internal iliac artery. The catheter was advanced into the left external iliac artery. Catheter arteriography with the tip of the catheter in the left external iliac artery was performed to identify the location of the origin of the left internal iliac artery. With the tip of the 5 Bulgarian Merit Impress catheter in the proximal most portion of the left internal iliac artery, angiography was performed to detail the branches of the left internal iliac artery and to locate the ostium of the left uterine artery. Arteriograms in multiple oblique projections were performed to best discern the branch point of the uterine artery. The proximal most portion of the left uterine artery to fixate a distinctive "hair pin turn" configuration. Once the uterine artery was identified, the microcatheter and microwire were advanced into the parent catheter and, in conjunction with contrast angiography, attempts to cannulate the left uterine artery were made unsuccessfully. Subsequent arteriograms acquired while trying to locate the exact location of the ostium of the left uterine artery demonstrated spasm of the artery and in multiple arteriograms of the left internal iliac artery the left uterine artery does not fill with contrast at all. The 5-Bulgarian Impress catheter was exchanged over a wire for a 5-Bulgarian curved tip catheter in the hopes to better access the left uterine artery. There are at least 2 arteriograms through the 5-Bulgarian catheter depicting the catheter directly abutting the ostium of the left uterine artery. Despite this appearance the microwire and catheter system could not be advanced beyond the proximalmost portion of the artery for safe deployment of embolic particles. Subsequent arteriograms show essential absence of filling of the left uterine artery due to spasm. Intra-arterial nitroglycerin was injected into the parent catheter in the hopes of relieving arterial spasm. At one point during the procedure nothing was done for at least 10 minutes in the hopes of cessation of the arterial spasm which persisted. Attempts at cannulization of the left uterine artery were finally aborted. The microcatheter and wire followed by the parent catheter were removed. The access sheath was removed and pressure was held at the common femoral arteriotomy for approximately 15 minutes. There were no signs of bleeding at the right groin access site and the site was dressed with sterile gauze and Tegaderm. The patient tolerated the procedure well and was transferred to the short stay recovery unit in stable condition for routine overnight observation and pain and nausea control. SUMMARY OF PROCEDURE, IMAGING FINDINGS AND INTERVENTIONS PERFORMED: 1. Diagnostic studies performed: * Arterial access was obtained at the right common femoral artery in the retrograde direction (i.e. towards the heart) with ultrasound guidance. A sonographic image was recorded. * Diagnostic catheter angiography (necessary to perform the appropriate interventions) was performed with the catheter tip in the bilateral common iliac arteries, bilateral internal iliac arteries, left external iliac artery and bilateral uterine arteries. * Catheter arteriography was performed of the bilateral iliac arterial system and specifically the bilateral uterine arteries. 2. Interpretation of diagnostic studies performed: * Bilateral uterine arteries providing arterial flow to the fibroid uterus. * The left uterine artery exhibits a "hairpin turn" at its proximal most portion. Due to vasospasm this artery could not be cannulated for left-sided embolization. 3. Surgical interventions performed: * Near stasis embolization of the right uterine artery utilizing 1/2 vial Embozenes 500 um and 1/2 vial Embozenes 700 um . 4. Interpretation of interventions performed: * Final arteriography demonstrated near complete stasis of the right uterine artery. PLAN: 1. The patient will be admitted to short stay surgical unit for routine overnight observation including pain and nausea control. 2. Outpatient clinical and imaging follow-up according to the Interventional Radiology protocol.
--- NOTE | 2017-08-11 16:46 | PN ---
Progress Note - Progress Note Date of Service: 08/11/17 SOAP: Subjective: Pain controlled at 2/10. No nausea or emesis. Has drank ice water without issue. Clear yellow urine in the Sandoval bag. Objective: Selected Entries 08/11/17 08/11/17 15:32 15:33 Temperature 98.4 F Pulse Rate 57 Respiratory 12 Rate Blood Pressure 116/73 (mmHg) Blood Pressure 83 Mean O2 Sat by Pulse 100 Oximetry Sleeping, but arousable to voice. NAD, AAO x 3 Abd is soft, minimally tender Right groin arteriotomy site is soft, NT Dressing is CDI 2+ pulses at right HAND TUBE WINDER, pop, dpa SCDs in place Right leg is neruomuscular intact grossly Assessment: 52 YOF status post unilateral UFE of the right uterine artery only. Vasospasm of the left uterine artery prevented catherization and subsequent embolization. Plan: 1. Standard pain & nausea care according to Interventional Radiology protocol. 2. HTN care per hospitalists. 3. Dr. Augustien will be in house 08/12/17 to round.
--- NOTE | 2017-08-11 21:32 | HP ---
AMENDED REPORT NOW INCLUDES COSIGNER DESIGNATION - ESIGNED BEFORE ADJUSTMENT CC: Dr. Augustine * ADMISSION HISTORY AND PHYSICAL: DATE OF ADMISSION: 08/11/17 REFERRING PHYSICIAN: Osiel Augustine MD PRIMARY CARE DOCTOR: Haylee Cordero MD ATTENDING PHYSICIAN: Radha Huang DO * (DICTATED BY GINNY GROVES, GRICELDA) CHIEF COMPLAINT: Uterine bleeding. 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 She had been worked up for uterine leiomyoma. MRI shows at least 2 to 3 uterine fibroids, midline posterior subserosal fundus with a 2.0 cm fibroid and the anterior myometrial fibroid measuring up to 7 mm and that had both increased in size from an ultrasound that she had in 2014. The patient presented to Dr. Augustine for consultation for her persistent pelvic pain, vaginal bleeding, and dyspareunia. It was determined she would be a candidate for uterine fibroid embolization. She has undergone that procedure today on . The patient was seen in her room postprocedure with nursing at bedside. The patient was awake, but very drowsy from anesthesia. No complaints of headache or dizziness. No chest pain. No shortness of breath. No nausea or vomiting. No urinary complaints. She states that her surgical pain is 0 at this time and no further constitutional complaints. PAST MEDICAL HISTORY: Significant for peripartum cardiomyopathy in 2007, hypertension, and the uterine leiomyoma. PAST SURGICAL HISTORY: Significant for knee surgery in the past and bunionectomy of the right foot x2. MEDICATIONS: At home include: 1. Amlodipine 2.5 mg every day. 2. Hydroxyzine 25 mg every night as needed. 3. Fluticasone 50 mcg 1 spray each nostril every day. 4. Lisinopril 40 mg daily. 5. Ferrous gluconate 324 mg 1 tablet 2 times a day. 6. Carvedilol 25 mg twice a day. 7. Biotin supplement 100 mg daily. 8. Red yeast rice 600 mg 2 times a day. 9. Multivitamin 1 tablet daily. ALLERGIES: She has an allergy to SHRIMP, but otherwise no known drug allergies. FAMILY HISTORY: Apparently, a sister also with uterine fibroids. No further family history contributing to her current condition. SOCIAL HISTORY: The patient does not smoke, does not drink alcohol. She lives with her son. 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 REVIEW OF SYSTEMS: A 10-point review of systems is negative except as noted in HPI. PHYSICAL EXAMINATION GENERAL: Again, the patient is alert, but somewhat drowsy. Otherwise, well- nourished and well appearing. VITAL SIGNS: Currently, blood pressure 118/68, heart rate 56, temperature 97.6 , respirations 12, and satting 100% on 2 L nasal cannula. HEENT: The patient is atraumatic, normocephalic. PERRLA with nonicteric sclerae. NECK: Supple. Nontender. No JVD noted. No thyromegaly appreciated. LUNGS: Clear bilaterally to auscultation with no wheezing, rhonchi, or rales. CARDIOVASCULAR: S1, S2 are present. Rate is bradycardic in the low 50s. Rhythm is regular. No murmurs, gallops, or rubs noted. ABDOMEN: Soft, nontender, and nondistended. Hypoactive bowel sounds noted. No organomegaly appreciated. MUSCULOSKELETAL: There is no clubbing, no cyanosis, and no edema. She has +2 distal pulses palpable. Surgical site is clean, dry, and intact. NEUROLOGIC: She is grossly intact with no focal deficits. PSYCHIATRIC: She is cooperative and appropriate. LABORATORY DATA: WBC is 3.9, RBC is 3.98, hemoglobin 11.4, hematocrit 33, and platelets 269. Sodium 134, potassium 3.6, chloride 102, CO2 of 25, BUN 16, creatinine 0.77, GFR 101.6, glucose 90, calcium 9.9, bilirubin 0.50, AST 17, ALT 13, alk phos 37, protein 8.1, albumin 4.2, globulin 3.9. Beta quant was less than 0.60. Coags; INR 0.98, APTT is 29.7. IMAGING: MRI as stated above. Also of significant note, the patient's most recent echocardiogram showed moderate to severely depressed left ventricular ejection fraction of 30% to 40% with diffuse global hypokinesis in the left ventricle, mild left ventricular dilatation, and mild to moderate left atrial dilatation, mild to moderate left atrial dilatation and trace mild mitral regurgitation. IMPRESSION: This is a 52-year-old female patient with a longstanding history of uterine bleeding and fibroids that is postop day 0 of uterine fibroid embolization. PLAN: The patient has been admitted to medical service with Dr. Augustine as her surgical provider consulting. We will hold her amlodipine and lisinopril. Her blood pressure is a little on the low side today. However, we will continue her Coreg given her history of cardiomyopathy. I have asked the nursing staff to add telemetry as her heart rate has been mostly bradycardic since her procedure and would like to monitor that at least for the next 24 hours on tele to make sure she has no issues given her significant cardiac history. We will hold her supplements for now. Pain medication will be as per Dr. Augustine. She can have a regular diet. Sandoval, I understand, was to be removed at 6 p.m. today and then she can ambulate ad mamta after she is no longer on bed rest secondary to her procedure. DVT prophylaxis with SCDs and she is a full code. Surrogate decision maker has not been established. When the patient is more awake, we will discuss that further. The rest of the patient's course will be determined by further diagnostics, laboratories and any other input from any other providers as warranted during this admission. I have discussed this plan of care with Dr. Radha Huang, the attending for this case. She is in agreement with the plan. GINNY GROVES, OIL EXPELLER OPERATOR [id number]/CPS #: [id number] [facility] HOSPITALJuan Ramon
[2017-08-11] MEDS: Carvedilol TAB* 25 MG PO SCH (22:12)
[2017-08-11] MEDS: Ferrous Gluconate TAB* 324 MG TAB PO SCH (22:12)
[2017-08-12] MEDS: Ketorolac INJ* 15 MG/ML 1 ML VIAL IV PUSH SCH (02:31)
[2017-08-12] MEDS: Ondansetron INJ* 2 MG/ML VIAL IV SCH (02:35)
[2017-08-12] MEDS: NS 0.9% 1000 ML* 1,000 ML IV SCH (06:32)
[2017-08-12] MEDS ORDERED: HYDROcodone/ACETAMIN 5-325 MG* 1 TAB PO PRN ×2 (08:03→08:10)
[2017-08-12] MEDS ORDERED: Ondansetron ODT TAB* 4 MG PO SCH (09:00)
[2017-08-12] MEDS ORDERED: KETOROLAC 10 MG PO SCH (09:00)
[2017-08-12] MEDS: Carvedilol TAB* 25 MG PO SCH (09:14)
[2017-08-12] MEDS: Ferrous Gluconate TAB* 324 MG TAB PO SCH (09:14)
--- NOTE | 2017-08-12 12:41 | PN ---
Progress Note - Progress Note Date of Service: 08/12/17 SOAP: Subjective: Pain and nausea well controlled. +PO diet, + void and ambulating independently Patient experienced "pulsating" sensation at right groin overnight that has since passed. Objective: Selected Entries 08/12/17 08/12/17 08/12/17 07:10 07:13 08:00 Temperature 99.2 F Temperature Temporal Artery Source Scan Pulse Rate 63 Respiratory 16 Rate Blood Pressure 121/75 (mmHg) Blood Pressure 86 Mean O2 Sat by Pulse 98 Oximetry NAD, AAO x 3 Abd is soft, minimal tenderness when palpating over low midline pelvis Right groin arteriotomy site is soft with minimal tenderness with palpation Dressing is CDI 2+ pulse palpated at right BALL TRUING MACHINE OPERATOR, pop and DPA 5/5 strength at right leg raise, knee extension, flexion, ankle dorsiflexion and great toe extension SILT over right leg Assessment: 52 YOF POD #1 s/p right only UAE (arteriospasm prevented catheterization of the left uterine artery) with pain and nausea well controlled with PO medications. The subjective right leg symptoms have resolved since overnight and the patient has walked independently without issue. Plan: 1. Discharge to home. 2. Routine Interventional Radiology follow up will include RN clinic follow up telephone calls 08/14/17 and 08/19/17. Follow up in the clinic in 6 weeks and 6 months. 3. Outpatient Rx regimen will include: Toradol 5 mg PO Q 6 hours x 3 days, dispense #15, 1 refill AFTER 3 days of Toradol, start Naproxen 250 mg PO every 12 hours x 3 days (DO NOT COMBINE TORADOL AND NAPROXEN) [place] 5/325 1 or 2 tablets PO Q 6 hours PRN x 5 days, dispense #20 (twenty), no refills Zofran 4 mg PO Q 6 hours x 5 days, dispense #30, 1 refill Scopoloamine 1.5 mg TD patch: on the morning of Monday, replace current patch with new patch and wear x 3 days 4. Patient advised to purchase laxative tea (E.g. Smooth Move) and drink one cup daily x 1 week to avoid constipation.
[2017-08-12 13:56] VITALS: BP 128/72
--- NOTE | 2017-08-13 00:59 | DS ---
CC: Dr. Cordero; Dr. Augustine DISCHARGE SUMMARY: DATE OF ADMISSION: 08/11/17 DATE OF DISCHARGE: 08/12/17 PRIMARY CARE PROVIDER: Dr. Cordero. DISCHARGE DIAGNOSIS: History of uterine leiomyoma, status post uterine artery embolization performed by Dr. Augustine on 08/11/17. SECONDARY DIAGNOSES: 1. History of peripartum cardiomyopathy in 2007. 2. Hypertension. 3. History of knee surgery in the past. 4. History of bunionectomy in the past. MEDICATIONS AT DISCHARGE: Include: 1. Amlodipine 2.5 mg daily. 2. Biotin 800 mcg daily. 3. Coreg 25 mg b.i.d. 4. Ferrous gluconate 324 mg b.i.d. 5. Fluticasone 1 spray nasal daily. 6. Hydrocodone/acetaminophen 5/325 mg 1 tablet every 6 hours p.r.n., 20 tablets dispensed. 7. Toradol 5 mg every 6 hours scheduled dose for 3 days total, then after the 3 days start naproxen 250 mg p.o. every 12 hours for the next 3 days scheduled. 8. Lisinopril 40 mg daily. 9. Zofran 4 mg every 6 hours for total of 5 days scheduled. 10. Scopolamine patch 1.5 mg 1 patch every 72 hours transdermally. 11. Red yeast rice 600 mg b.i.d. LABORATORY DATA DURING THE HOSPITAL STAY: Included: White blood cell count of 3.9, hemoglobin 11.4, hematocrit of 33, and platelets of 269. Sodium was 134, potassium 3.6, chloride 102, carbon dioxide 25, BUN 16, creatinine 0.77. Beta hCG wa s below 0.6. PROCEDURES PERFORMED DURING THE HOSPITAL STAY: Included uterine artery embolization performed by Dr. Augustine on 08/11/17. The patient had right uterine artery embolization only. Vasospasm of the left uterine artery prevented catheterization and subsequent embolization. At discharge, the patient is recommended to follow up with Dr. Augustine in approximately 6 weeks from t he date of the procedure. The patient is recommended also to follow up with her primary care provider within the next week afte r the procedure. PHYSICAL EXAM AT THE TIME OF DISCHARGE: Blood pressure 121/75, heart rate of 63 and regular, respira tory rate 18, oxygen saturation 96% on room air, temperature 99.2. General: The patient is a very p leasant 52-year-old female who is in no acute distress. Alert, awake, and oriented x3. HEENT: Head is atraumatic, normocephalic. Eyes: Pupils are equal, reactive to light and accommodation. Orophar ynx clear. Mucosa moist. Neck: Supple. No JVD, no bruits bilaterally. Cardiovascular: Regular ra te and rhythm. No murmur. Respiratory: Clear to auscultation bilaterally. Abdomen: Soft, minimal ly tender in the suprapubic area with no rebound and no guarding. Bowel sounds are present in all 4 quadrants. Extremities: There is no edema, pulses +2 bilaterally. No clubbing or cyanosis. Neuro Ev aluation: Speech clear. Cranial nerves II through XII grossly intact. Motor strength is 5/5 bilater ally. Please note that this is short summary of the patient's hospitalization. Please refer to further [facility] records for details. [id number]/[facility] #: [id number]
[2017-08-14] MEDS ORDERED: Scopolamine PATCH Remove* 1 NOTE MISC PATCH OFF ONE (08:30)
== END 2017-08-12 14:20 | disposition home or self-care (01) ==
LOC: CHICATH 06:53 → SSU 13:14
PROVIDERS: ADMIT Hospitalist; ATTEND Internal Medicine
DX: D25.9 Leiomyoma of uterus, unspecified (principal); I10 Essential (primary) hypertension; I42.9 Cardiomyopathy, unspecified; Z79.899 Other long term (current) drug therapy; R10.9 Unspecified abdominal pain
CPT/HCPCS: 36415; 37243; 75736; 76937; 80053; 84702; 85025; 85610; 85730; 96374; 96375; 99156; 99157; A9270-GY; C1725; C1887; G0378; J1170; J1644; J1885; J2250; J2405; J3010

== ENCOUNTER 2017-08-14 17:04 | Emergency (ER) | payer OTHER ==
[2017-08-14] MEDS ORDERED: Ondansetron INJ* 2 MG/ML VIAL IV ONE (18:44)
--- NOTE | 2017-08-14 18:59 | ED ---
Headache - HPI Summary HPI Summary: Pt here with Rt sided headache. She reports this started after she attempted to move her bowels yesterday - triggered a headache during a strained attempt (NOTE : she's been taking narcotic pain meds since uterine artery embolization surgery Monday08/11/[address] Augustine). PATHAK seemed to get a little bit better however today she felt the urge to move her bowels again and was successful however during this event her headache became much worse. She thinks she had an epidural however could not find this in operative notes - she denies positional PATHAK's. She admits to having headaches throughout her life and this may be similar in quality to previous ones however is worse in pain. She typically takes tylenol for her PATHAK's - has not tried yet as she's already taking percocet/norco - reports she takes only as directed. Associated symptoms include nausea without vomiting. She denies photophobia, neck pain, numbness, tingling, weakness, syncope, change in vision. She denies URI symptoms along with chest pain, shortness of breath, back pain. Regarding her surgery, she reports the Rt side was successful however the left side was not successful for embolization as her artery spasmed during the procedure (confirmed in surgical notes as well). She's having some swelling in her lower pelvic area and reports some pain on the left. She also admits to blood w/ clots coming from her vaginal area - she is unsure if this is from bladder or vagina. Her last menstrual period was at the beginning of the month and so she is not due for her period now. She did have heavy periods prior to surgery most likely d/t fibroids hence procedure - this may be contributing to her bleeding now. Pt also has HTN - she has taken her morning dose of meds which include lisinopril, norvasc and carvedilol. She's due for an evening dose of carvedilol - will administer here. She admits to cardiomyopathy - has had abnormal ECG's in the past but does not recall details. - History Of Current Complaint Chief Complaint: EDHeadache Stated Complaint: HEADACHE-HAD SURGERY FRI Time Seen by Provider: 08/14/17 18:25 Hx Obtained From: Patient, Family/Director Dance - preteen son present Hx Last Menstrual Period: Beginning of 07/2016 - Allergies/Home Medications Allergies/Adverse Reactions: Allergies Allergy/AdvReac Type Severity Reaction Status Date / Time SHRIMP Allergy Swelling Uncoded 08/14/17 17:34 Of Face,Lips,& Throat Home Medications: Home Medications Carvedilol TAB* [Coreg TAB*] 25 mg PO BID 08/14/17 [History Confirmed 08/14/17] Ferrous Gluconate TAB* [Fergon TAB*] 325 mg PO BID 08/14/17 [History Confirmed 08/14/17] Fluticasone NASAL SPRAY 50MCG* [Flonase NASAL SPRAY 50MCG*] 1 spray BOTH NARES DAILY 08/14/17 [History Confirmed 08/14/17] Lisinopril TAB* [Prinivil TAB*] 40 mg PO DAILY 08/14/17 [History Confirmed 08/14] Naproxen TAB* [Naprosyn 250 mg TAB*] 250 mg PO Q12H 08/14/17 [History Confirmed 08/14/17] amLODIPine TAB* [Norvasc 5 mg TAB*] 2.5 mg PO DAILY 08/14/17 [History Confirmed 08/14/17] hydrOXYzine HCL TAB* [Atarax 25 MG TAB*] 25 mg PO QPM 08/14/17 [History Confirmed 08/14/17] PMH/Surg Hx/FS Hx/Imm Hx Previously Healthy: Yes Endocrine/Hematology History: Reports: Hx Anemia - Takes Fe Denies: Hx Anticoagulant Therapy, Hx Diabetes, Hx Systemic Lupus Erythematosus, Hx Thyroid Disease Cardiovascular History: Reports: Hx Hypertension - ON MEDS, Other Cardiovascular Problems/Disorders - post CARDIO MYOPATHY - follows w/ [facility] Denies: Hx Aneurysm, Hx Myocardial Infarction, Hx Pacemaker/ICD Respiratory History: Denies: Hx Asthma, Hx Chronic Obstructive Pulmonary Disease (COPD) History: Reports: Other Problems/Disorders - ovarian cyst hx, uterine fibroids Denies: Hx Dialysis, Hx Renal Disease Musculoskeletal History: Denies: Hx Rheumatoid Arthritis Sensory History: Denies: Hx Hearing Aid Neurological History: Denies: Hx Dementia, Hx Seizures Psychiatric History: Denies: Hx Panic Disorder - ANXIETY, Hx Substance Abuse - Cancer History Hx Chemotherapy: No Hx Radiation Therapy: No - Surgical History Surgery Procedure, Year, and Place: Bilateral knee surgeries age 13,. RIGHT FOOT BUNION REPAIR Infectious Disease History: No Infectious Disease History: Denies: Traveled Outside the [place] in Last 30 Days - Family History Known Family History: Positive: Hypertension, Diabetes - Social History Lives: With Family Alcohol Use: Rare Hx Substance Use: No Substance Use Type: Reports: None Hx Tobacco Use: No Smoking Status (MU): Never Smoked Tobacco Review of Systems Constitutional: Negative Negative: Fever, Chills, Fatigue Eyes: Negative Negative: Photophobia, Blurred Vision, Diplopia ENT: Negative Negative: Sore Throat, Ear Ache, Nasal Discharge Cardiovascular: Negative Negative: Palpitations, Chest Pain Respiratory: Negative Negative: Shortness Of Breath, Cough Positive: Nausea Genitourinary: Other - lower pelvis is "swollen" at surgical sites, LLQ pain ( mild) Positive: other - vaginal bleeding. Negative: burning, dysuria, frequency, flank pain, incontinence, pain, urgency Skin: Negative Positive: Headache. Negative: Weakness, Paresthesia, Numbness, Syncope, Slurred Speech Psychological: Other - concerened but calm and cooperative All Other Systems Reviewed And Are Negative: Yes Physical Exam Triage Information Reviewed: Yes Vital Signs On Initial Exam: Initial Vitals Temp Pulse Resp BP Pulse Ox 98.7 F 61 16 169/104 100 08/14/17 17:30 08/14/17 17:30 08/14/17 17:30 08/14/17 17:30 08/14/17 17:30 Vital Signs Reviewed: Yes Appearance: Positive: Well-Appearing, Well-Nourished, Pain Distress - appears to be in moderate pain w/ PATHAK - tolerating lights well Skin: Positive: Warm, Skin Color Reflects Adequate Perfusion, Dry - bandaid over surgical site in Rt groin Diagnostics - Vital Signs Vital Signs Temp Pulse Resp BP Pulse Ox 08/14/17 17:30 98.7 F 61 16 169/104 100 - Laboratory Result Diagrams: 08/14/17 19:18 08/14/17 19:18 Lab Statement: Any lab studies that have been ordered have been reviewed, and results considered in the medical decision making process. Headache Course/Dx - Course Course Of Treatment: Patient's EKG here tonight is normal sinus rhythm with T- wave inversion in V5 and V6 as well as T-wave flattening and LVH. No ST elevations. Spoke with Dr. Carr [employer] who reports patient's most recent EKG on file with them was January 13, 2017. This is noted to be normal sinus rhythm with T-wave inversion in V5 and V6 and flattening T waves in leads 23 and aVF. He notes there is no preoperative report in their system. Discharge - Discharge Plan Referrals: Haylee Cordero MD [Primary Care Provider] -
[2017-08-14 19:13] LABS: Urine Appearance Cloudy; Urine Blood 3+ (Negative); Urine Ketones Negative (Negative); Urine Protein 1+(30 mg/dL) (Negative); Urine Specific Gravity 1.009 (1.010-1.030); Urine Urobilinogen Negative (Negative)
[2017-08-14 19:28] LABS: Urine Color Red
[2017-08-14 19:45] LABS: ABS Basophils 0 10^3/ul (0-0.2); ABS Eosinophils 0.2 10^3/ul (0-0.6); ABS Monocytes 0.4 10^3/ul (0-0.8); ABS Neutrophils 3.7 10^3/ul (1.5-7.7); ABS Nucleated RBC 0 10^3/ul; Eosinophil % 3.1 % (0-6); Hematocrit 31 % (35-47); Lymphocyte % 18.6 % (25-47); Mean Corpuscular HGB Conc 35 g/dl (31-36); Mean Corpuscular Hemoglobin 29 pg (27-31); Mean Corpuscular Volume 83 fL (80-97); Mean Platelet Volume 7 um3 (7.4-10.4); Nucleated Red Blood Cells % 0; Platelet Count 259 10^3/ul (150-450); Red Blood Count 3.74 10^6/ul (4.0-5.4); Red Cell Distribution Width 13 % (10.5-15); White Blood Count 5.3 10^3/ul (3.5-10.8)
[2017-08-14 19:54] LABS: INR 0.92 (0.77-1.02)
--- NOTE | 2017-08-14 19:54 | RAD ---
INDICATION: Headaches COMPARISON: None TECHNIQUE: Noncontrast axial source images were acquired from the skull base to the vertex. FINDINGS: Ventricles/sulci: The ventricles and cisterns are normal in size and configuration for age. Brain parenchyma: There is no focal parenchymal finding, evidence of intracranial mass, or intracranial mass effect. Intracranial hemorrhage:None. Extra-axial spaces: There are no abnormal extra axial fluid collections or evidence of extra-axial mass. Calvarium: There is no calvarial fracture or other calvarial abnormality. Scalp: There is no evidence of scalp or extracalvarial soft tissue abnormality. Paranasal sinuses/mastoid: The paranasal sinuses and mastoid air cells are clear. Other: None. IMPRESSION: NEGATIVE EXAMINATION
[2017-08-14] MEDS ORDERED: Morphine INJ* 4 MG/ML 1 ML SYRINGE (NEW SYRINGE VERSION) IV ONE (20:02)
[2017-08-14] MEDS ORDERED: Metoclopramide IV* 5 MG/ML 2 ML VIAL IV ONE (20:02)
[2017-08-14] MEDS ORDERED: Carvedilol TAB* 25 MG PO ONE (20:13)
[2017-08-14] MEDS ORDERED: Acetaminophen TAB* 325 MG PO ONE (20:16)
[2017-08-14] MEDS ORDERED: Iohexol 350* (CONTRAST) 500 ML MDV IV ONE (20:20)
--- NOTE | 2017-08-14 20:35 | RAD ---
INDICATION: Headaches COMPARISON: CT brain same date TECHNIQUE: Axial source images were acquired with coronal and sagittal reconstructions. CT angiographic technique was utilized with injection of 80 mL Omnipaque 350. FINDINGS: Right carotid: The internal carotid artery at the skull base,, carotid siphon, and carotid termination appear normal. Left carotid:The internal carotid artery at the skull base, carotid siphon, and carotid termination appear normal. Right middle and anterior cerebral arteries: There are no CT angiographic abnormalities of the middle or anterior cerebral arteries. Left middle and anterior cerebral arteries: There are no CT angiographic abnormalities of the middle or anterior cerebral arteries Right vertebral: The CT angiographic appearance of the visualized vertebral artery is normal. Left vertebral: The CT angiographic appearance of the visualized vertebral artery is normal. Basilar artery: The basilar artery and basilar tip appear normal. Posterior cerebral arteries: The distal distribution of the right and left posterior cerebral arteries is normal. [place]: The CT angiographic appearance of the [place] is normal. Source images show no no focal brain parenchymal abnormalities or abnormal areas of enhancement. There is minor mucoperiosteal thickening involving several ethmoid air cells and the left frontal air cells (a short air-fluid level IMPRESSION: NO ACUTE INTRACRANIAL ABNORMALITIES. SINUSITIS. CPT II Codes: 3100F PQRS
[2017-08-14 23:47] VITALS: BP 142/80
== END 2017-08-14 23:45 | disposition home or self-care (01) ==
LOC: ED 17:04
DX: R51 Headache (principal); N93.9 Abnormal uterine and vaginal bleeding, unspecified; R11.0 Nausea; J32.9 Chronic sinusitis, unspecified; D64.9 Anemia, unspecified; I10 Essential (primary) hypertension
CPT/HCPCS: 36415; 70450; 70496; 80053; 81003; 81015; 82150; 83605; 83690; 85025; 85610; 85730; 86850; 86900; 86901; 87040; 93005; 96374; 96375; 99282; A9270-GY; J2270; J2405; J2765; Q9967

== ENCOUNTER 2017-10-05 11:27 | Emergency (ER) | payer OTHER ==
--- OUTSIDE RECORDS SUMMARY | 2017-10-05 11:38 | XMS REPORT ---
:1965 External Reference #:[id number] Author Organization [facility] Address [address] [address] Phone [phone] Care Team Providers Name Role Phone Haylee Cordero MD Primary Care Physician Unavailable Payers Type Date Identification Numbers Payment Provider Subscriber Commercial Effective: Policy Number: Roni Corey 2011 [id number] Group Number: [id number] [address] PayID: [id number] [place] [address] Problems Date Description Provider Status Onset: 07/07/2011 Cardiovascular Disease Other Preg Haylee Cordero M.D. Active Deliv W/ Compl Onset: 07/07/2011 Acne Haylee Cordero M.D. 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 Active Onset: 10/04/2012 Essential hypertension Amira Turner D.O. Active Onset: 07/29/2014 Anemia due to chronic blood loss Haylee Cordero M.D. 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 Active Onset: 09/23/2015 Cardiomyopathy, unspecified Traveling ECHO Schedule Active Onset: 08/30/2016 Uterine leiomyoma Haylee Cordero M.D. 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 Cigarette Use Never Smoked Cigarettes ETOH Use Never used alcohol Smoking Patient has never smoked Recreational Drug Use Never Used Drugs Daily Caffeine Consumes on average 1 cup 1-2 days a week- decaff of hot tea per day Exercise Type/Frequency Exercises regularly walking, 20-30 minutes 2-3 times weekly Currently Active Patient is currently not by choice since 2007 sexually active 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 repeat in 3 days as needed Valtrex Active Tablets 500mg 10tabs 1 by A60.04 Birtt 018 mouth Varn, N.P. twice a day x 5 days as needed Amlodipine Active Tablets 2.5mg 90tabs 1 by I10 Robert Mendez Besylate 016 mouth Sasha, every day M.D. I42.9 Fluticasone 04/15/2015 Active Suspension 50mcg/Act 16gm 1 squirts J30.9 Robert E. Propionate each Sasha, nostril M.D. every day Lisinopril 02/12/2015 Active Tablets 40mg 90tabs take 1 I42.9 Qutaybeh tab by S. mouth Maghaydah, daily M.D. I10 Ferrous 11/28/2011 Active Tablets 324(38Fe) 60tabs take 1 D53.9 Haylee Gluconate mg tablet 2 Cordero, times a M.D. day Red Yeast Rice Active Capsules 600mg 1 by Unknown mouth twice a day Multivitamins Active Capsules 1 by Unknown mouth every day Carvedilol Active Tablets 25mg 180tabs take 1 I42.9 Qutaybeh tablet S. by mouth Angelina, twice a M.D. day I10 Biotin Maximum Active Capsules 5000mcg 1 po qd (OTC) Unknown Strength Hydrocodone-Francois 09/18/2017 - Hx Tablets 5-325mg 20 1 or 2 tablets Jackie Manish taminophen 09/20/2017 ta by mouth every rené Bragg 4-6 hours as MD needed for moderately severe pain Doxycycline 01/23/2017 - Hx Tablets 100mg 28 1 tablet twice a Haylee Hyclate 02/06/2017 ta day x 14 days rené Cordero M.D. Metronidazole 10/20/2016 - Hx Gel 0.75% 1u apply Haylee 10/27/2016 ni intravaginally david Cordero once a day x 7 M.D. days did not finish Hydroxyzine HCL 05/03/2016 Hx Tablets 25mg 14 1 tab by mouth F4 Haylee ta every night as 1. rené Cordero needed for 9 M.D. anxiety (pt is not taking) Triamcinolone 01/27/2016 - Hx Lotion 0.1% 60 apply thin film L3 Hubert Acetonide 05/03/2016 ml topically twice 0. Gambian, a day 9 [employer] Doxycycline 03/17/2015 - Hx Capsules 100mg 20 1 by mouth twice J0 Haylee Hyclate 04/14/2015 ca a day 1. kia Cordero 90 M.D. Anusol-HC 02/23/2015 - Hx Suppository 25mg 5u apply K6 Haylee 04/14/2015 ni intrarectally 4. david Cordero every day x 5 9 M.D. days Colace 02/23/2015 - Hx Capsules 100mg 30 1 by mouth daily K5 Haylee 01/25/2016 ca as needed for 9. kia Cordero constipation 09 M.D. Lisinopril 11/27/2014 - Hx Tablets 30mg 30 1 by mouth every Qutaybeh 02/12/2015 ta day SSelina Alfaro M.D. Mebendazole 01/16/2013 - Hx Chewtabs 100mg 1u take it once , 12 Haylee 01/16/2013 ni may repeat in 3 8. david Cordero wks if symptoms 9 M.D. persist Albenza 01/16/2013 - Hx Tablets 200mg 2t take 2 tab once Haylee 11/26/2013 ab , may repeat in chan Cordero 3 wks if M.D. symptoms persist Claritin 01/02/2012 - Hx Capsules 10mg 10 1 po qd as V1 Haylee 04/17/2012 ca needed 5. kia Cordero 06 M.D. Miralax 11/18/2011 - Hx Powder [id number] 23 17 gm qd mixed 56 Roya 04/17/2012 8g w/ 8 oz 4. everardo French water/juice once 09 M.D. per day Metrolotion 11/11/2011 - Hx Lotion 0.75% 1u apply bid Haylee 08/27/2012 ni david Cordero M.D. Metamucil 09/12/2011 - Hx Powder 48.57% 30 Once A Day 56 Haylee 11/26/2013 un 4. ruddy Cordero 09 M.D. s Colace 09/12/2011 - Hx Capsules 100mg 30 1 tab bid as 56 Haylee 11/28/2011 ca needed for 4. kia Cordero constipation 09 M.D. Metrogel 07/07/2011 - Hx Gel 1% 1u apply to face 70 Haylee 11/28/2011 ni bid as needed 6. david Cordero 1 M.D. Lisinopril - Hx Tablets 20mg 30 1 po qd Haylee 03/12/2012 rené Kiser M.D. Digoxin - Hx Tablets 0.125mg 90 1 po qd Haylee 03/12/2012 rené Kiser M.D. Ferrous Sulfate - Hx Tablets 325(65Fe) 1 po qd Unknown 01/02/2012 mg Minocycline HCL - Hx Capsules 100mg 20 1 po q bid Unknown 07/11/2011 ca ps Anant Aspirin - Hx Tablets DR 81mg 1 po qd Unknown Ec Low Dose 03/11/2014 Ondansetron Odt - Hx Tablets 4mg 20 po tid prn Unknown 09/28/2011 Dispers ta bs Oxycodone/Aceta - Hx Tablets 5-325mg 40 1-2 tabs po q 4 Unknown minophen 09/28/2011 ta hrs prn pain bs Lisinopril - Hx Tablets 20mg 30 take 1 tablet by Qutaybchevy 11/27/2014 ta mouth once daily S. rené Alfaro M.D. Zithromax - Hx Tablets 500mg one by mouth one Unknown 07/27/2016 per day Macrobid - Hx Capsules 100mg 1 tab by mouth Unknown 07/27/2016 twice a day x 7 days Biotin - Hx Capsules 1mg take one Unknown 08/29/2016 capsule/tablet daily by mouth Immunizations CPT Code Status Date Vaccine Lot # [id number] Given 05/03/2016 Influenza Virus Vaccine, Quadrivalent, Split [id number] Virus[place] [id number] Given 04/15/2015 Influenza Virus Vaccine, Quadrivalent, Split, [id number] Preservative Free [id number] Given 04/17/2012 Fluvirin Im [id number] And Older [id number] [id number] Given 01/02/2012 Tdap - Tetanus/Diptheria/Acellular Pertussis [id number] Vital Signs Date Vital Result Comment 09/25/2017 Weight 180.00 lb Heart Rate 67 /min BP Systolic 150 mmHg BP Diastolic 91 mmHg Body Temperature 97.8 F O2 % BldC Oximetry 100 % 09/21/2017 Height 70 inches 5'10" Weight 179.00 lb w/ shoes Heart Rate 78 /min BP Systolic Sitting 138 mmHg lue reg cuff BP Diastolic Sitting 80 mmHg lue reg cuff Respiratory Rate 18 /min BMI (Body Mass Index) 25.7 kg/m2 Ejection Fraction 40-45% echo 06/08/16 09/18/2017 Height 70 inches 5'10" Weight 177.00 lb Heart Rate 90 /min BP Systolic Sitting 130 mmHg BP Diastolic Sitting 90 mmHg Respiratory Rate 16 /min Body Temperature 98.0 F BMI (Body Mass Index) 25.4 kg/m2 09/15/2017 Height 70 inches 5'10" Weight 177.50 lb w/shoes Heart Rate 76 /min BP Systolic Sitting 148 mmHg L/A Reg Cuff BP Diastolic Sitting 100 mmHg L/A Reg Cuff BMI (Body Mass Index) 25.5 kg/m2 Ejection Fraction 40-45% echo 06/08/2016 09/04/2017 Height 70 inches 5'10" Weight 179.00 lb Heart Rate 78 /min BP Systolic 118 mmHg BP Diastolic 78 mmHg Respiratory Rate 16 /min Body Temperature 98.2 F BMI (Body Mass Index) 25.7 kg/m2 04/10/2017 Height 70 inches 5'10" Weight 180.00 lb w/ shoes Heart Rate 60 /min irregular BP Systolic Sitting 122 mmHg lue reg cuff BP Diastolic Sitting 72 mmHg lue reg cuff Respiratory Rate 18 /min BMI (Body Mass Index) 25.8 kg/m2 Ejection Fraction 40-45% echo 06/08/2016 03/03/2017 Heart Rate 64 /min Respiratory Rate 16 /min Body Temperature 98.4 F 01/31/2017 Weight 180.50 lb with brace and shoes Heart Rate 67 /min BP Systolic Sitting 128 mmHg BP Diastolic Sitting 82 mmHg Body Temperature 98.3 F O2 % BldC Oximetry 98 % 01/31/2017 Height 70 inches 5'10" Weight 166.00 lb BP Systolic 120 mmHg BP Diastolic 76 mmHg Respiratory Rate 18 /min Pain Level 5 BMI (Body Mass Index) 23.8 kg/m2 01/13/2017 Height 70 inches 5'10" Weight 177.00 lb with shoes Heart Rate 76 /min BP Systolic Sitting 146 mmHg LA reg cuff BP Diastolic Sitting 82 mmHg LA reg cuff BMI (Body Mass Index) 25.4 kg/m2 Ejection Fraction 40% - 45% echo 06/08/16 10/26/2016 Weight 178.00 lb Heart Rate 80 /min BP Systolic Sitting 124 mmHg BP Diastolic Sitting 82 mmHg Body Temperature 98.4 F O2 % BldC Oximetry 99 % 10/19/2016 Height 70 inches 5'10" Weight 177.25 lb Heart Rate 70 /min BP Systolic 146 mmHg BP Diastolic 76 mmHg Body Temperature 97.6 F O2 % BldC Oximetry 99 % BMI (Body Mass Index) 25.4 kg/m2 09/14/2016 Height 70 inches 5'10" Weight 177.00 lb w/ shoes Heart Rate 80 /min reg BP Systolic Sitting 130 mmHg Lue, reg BP Diastolic Sitting 70 mmHg Lue, reg Respiratory Rate 16 /min BMI (Body Mass Index) 25.4 kg/m2 08/30/2016 Height 70 inches 5'10" Weight 178.50 lb Heart Rate 80 /min BP Systolic 130 mmHg BP Diastolic 80 mmHg Body Temperature 97.7 F O2 % BldC Oximetry 96 % BMI (Body Mass Index) 25.6 kg/m2 07/27/2016 BP Systolic Sitting 138 mmHg BP Diastolic Sitting 94 mmHg 07/27/2016 Weight 177.38 lb Heart Rate 81 /min BP Systolic Sitting 185 mmHg BP Diastolic Sitting 128 mmHg Body Temperature 98.3 F O2 % BldC Oximetry 98 % 06/07/2016 Weight 172.75 lb with boots Heart Rate 84 /min BP Systolic Sitting 128 mmHg LA reg cuff BP Diastolic Sitting 92 mmHg LA reg cuff Ejection Fraction 35% - 40% echo 09/23/15 05/03/2016 Weight 172.00 lb Heart Rate 78 /min BP Systolic Sitting 160 mmHg BP Diastolic Sitting 100 mmHg BP Systolic Standing 154 mmHg Pt's BP machine BP Diastolic Standing 106 mmHg Pt's BP machine Body Temperature 98.7 F O2 % BldC Oximetry 99 % 01/27/2016 Height 70 inches 5'10" Weight 166.00 lb Heart Rate 73 /min BP Systolic Sitting 150 mmHg BP Diastolic Sitting 80 mmHg Body Temperature 97.9 F O2 % BldC Oximetry 95 % BMI (Body Mass Index) 23.8 kg/m2 01/25/2016 Weight 167.50 lb Heart Rate 84 /min BP Systolic Sitting 150 mmHg BP Diastolic Sitting 80 mmHg Body Temperature 99.5 F Pt took tylenol at 1:30pm O2 % BldC Oximetry 94 % 11/02/2015 Height 70 inches 5'10" Weight 166.00 lb w/shoes Heart Rate 80 /min BP Systolic Sitting 158 mmHg LA reg cuff BP Diastolic Sitting 98 mmHg LA reg cuff BMI (Body Mass Index) 23.8 kg/m2 Ejection Fraction 35-40% Echo 09/23/15 10/02/2015 Height 70 inches 5'10" Weight 166.00 lb Heart Rate 72 /min BP Systolic Sitting 130 mmHg BP Diastolic Sitting 80 mmHg Respiratory Rate 16 /min Pain Level 3 BMI (Body Mass Index) 23.8 kg/m2 09/25/2015 Height 70 inches 5'10" Weight 166.25 lb with shoes Heart Rate 76 /min BP Systolic Sitting 138 mmHg LA, regular BP Diastolic Sitting 88 mmHg LA, regular BMI (Body Mass Index) 23.9 kg/m2 Ejection Fraction 35-40% echo 09/23/15 07/06/2015 Height 70 inches 5'10" Weight 166.00 lb Heart Rate 73 /min BP Systolic 150 mmHg BP Diastolic 100 mmHg Body Temperature 98.2 F O2 % BldC Oximetry 100 % BMI (Body Mass Index) 23.8 kg/m2 05/05/2015 Height 70 inches 5'10" Weight 172.00 lb Heart Rate 67 /min BP Systolic 148 mmHg BP Diastolic 101 mmHg Body Temperature 98.0 F BMI (Body Mass Index) 24.7 kg/m2 04/15/2015 Height 69.75 inches 5'9.75" Weight 163.50 lb Heart Rate 72 /min BP Systolic Sitting 132 mmHg BP Diastolic Sitting 84 mmHg Body Temperature 97.2 F O2 % BldC Oximetry 98 % BMI (Body Mass Index) 23.6 kg/m2 03/17/2015 Weight 167.75 lb Heart Rate 70 /min BP Systolic 156 mmHg her machine BP Diastolic 103 mmHg her machine BP Systolic Sitting 143 mmHg our machine BP Diastolic Sitting 90 mmHg our machine Body Temperature 98.2 F O2 % BldC Oximetry 98 % 02/23/2015 Weight 171.25 lb Heart Rate 67 /min BP Systolic Sitting 151 mmHg BP Diastolic Sitting 91 mmHg Body Temperature 96.8 F 02/12/2015 Height 70 inches 5'10" Weight 172.00 lb w/ shoes Heart Rate 80 /min BP Systolic Sitting 152 mmHg LA, reg BP Diastolic Sitting 100 mmHg LA, reg BMI (Body Mass Index) 24.7 kg/m2 Ejection Fraction 30-35% 11/07/14 ECHO 11/27/2014 Height 70 inches 5'10" Weight 168.00 lb Heart Rate 70 /min BP Systolic Sitting 164 mmHg LA, reg BP Diastolic Sitting 104 mmHg LA, reg BMI (Body Mass Index) 24.1 kg/m2 Ejection Fraction 30-35% 11/07/14 echo 10/24/2014 Height 70 inches 5'10" Weight 168.00 lb Heart Rate 74 /min BP Systolic 150 mmHg LA reg BP Diastolic 110 mmHg LA reg BMI (Body Mass Index) 24.1 kg/m2 Ejection Fraction 35-40% 02/21/14 ECHO 07/29/2014 Weight 170.00 lb Heart Rate 78 /min BP Systolic Sitting 140 mmHg BP Diastolic Sitting 94 mmHg Body Temperature 98.3 F 03/12/2014 Height 70 inches 5'10" Weight 168.50 lb Heart Rate 76 /min BP Systolic Sitting 144 mmHg LA reg cuff BP Diastolic Sitting 94 mmHg LA reg cuff Respiratory Rate 14 /min BMI (Body Mass Index) 24.2 kg/m2 02/07/2014 Height 70 inches 5'10" Weight 167.75 lb w/shoes Heart Rate 76 /min BP Systolic Sitting 124 mmHg BP Diastolic Sitting 74 mmHg Respiratory Rate 15 /min BMI (Body Mass Index) 24.1 kg/m2 12/26/2013 Height 70 inches 5'10" Weight 166.00 lb Heart Rate 76 /min BP Systolic Sitting 122 mmHg BP Diastolic Sitting 80 mmHg BMI (Body Mass Index) 23.8 kg/m2 11/26/2013 Height 70 inches 5'10" Weight 164.00 lb Heart Rate 80 /min BP Systolic Sitting 146 mmHg BP Diastolic Sitting 90 mmHg Body Temperature 98.1 F BMI (Body Mass Index) 23.5 kg/m2 01/16/2013 Weight 174.00 lb Heart Rate 63 /min BP Systolic Sitting 132 mmHg BP Diastolic Sitting 89 mmHg 10/04/2012 Height 70 inches 5'10" Weight 179.25 lb Heart Rate 68 /min Regular BP Systolic Sitting 152 mmHg BP Diastolic Sitting 90 mmHg BMI (Body Mass Index) 25.7 kg/m2 09/26/2012 Weight 182.50 lb Heart Rate 73 /min BP Systolic Sitting 148 mmHg BP Diastolic Sitting 98 mmHg 08/27/2012 Height 70 inches 5'10" Weight 181.25 lb Heart Rate 76 /min BP Systolic 130 mmHg BP Diastolic 84 mmHg BP Systolic Sitting 138 mmHg BP Diastolic Sitting 96 mmHg BMI (Body Mass Index) 26.0 kg/m2 04/17/2012 Height 69.50 inches 5'9.50" Weight 177.00 lb Heart Rate 78 /min BP Systolic Sitting 149 mmHg BP Diastolic Sitting 99 mmHg BMI (Body Mass Index) 25.8 kg/m2 03/12/2012 Height 69.50 inches 5'9.50" Weight 175.00 lb Heart Rate 80 /min BP Systolic 154 mmHg BP Diastolic 98 mmHg BMI (Body Mass Index) 25.5 kg/m2 01/25/2012 Height 69.50 inches 5'9.50" Weight 177.00 lb Heart Rate 68 /min BP Systolic Sitting 140 mmHg BP Diastolic Sitting 100 mmHg BMI (Body Mass Index) 25.8 kg/m2 01/02/2012 Height 69.50 inches 5'9.50" Weight 176.00 lb Heart Rate 62 /min BP Systolic Sitting 142 mmHg BP Diastolic Sitting 100 mmHg BMI (Body Mass Index) 25.6 kg/m2 11/28/2011 Height 69.50 inches 5'9.50" Weight 176.00 lb Heart Rate 68 /min BP Systolic Sitting 142 mmHg BP Diastolic Sitting 102 mmHg BMI (Body Mass Index) 25.6 kg/m2 11/18/2011 Height 69.50 inches 5'9.50" Weight 175.00 lb Heart Rate 70 /min BP Systolic 110 mmHg 2nd time BP Diastolic 80 mmHg 2nd time BP Systolic Sitting 132 mmHg BP Diastolic Sitting 100 mmHg BMI (Body Mass Index) 25.5 kg/m2 11/09/2011 Height 69.50 inches 5'9.50" Weight 172.75 lb Heart Rate 64 /min Regular BP Systolic Sitting 160 mmHg BP Diastolic Sitting 110 mmHg BMI (Body Mass Index) 25.1 kg/m2 09/28/2011 Height 69.50 inches 5'9.50" Weight 173.00 lb Heart Rate 65 /min BP Systolic Sitting 150 mmHg BP Diastolic Sitting 100 mmHg BMI (Body Mass Index) 25.2 kg/m2 09/12/2011 Height 69.50 inches 5'9.50" Weight 172.00 lb Heart Rate 76 /min BP Systolic Sitting 122 mmHg BP Diastolic Sitting 90 mmHg BMI (Body Mass Index) 25.0 kg/m2 09/05/2011 Height 69.50 inches 5'9.50" Weight 173.00 lb Heart Rate 72 /min BP Systolic Sitting 148 mmHg r BP Diastolic Sitting 92 mmHg r BP Diastolic Standing 92 mmHg BMI (Body Mass Index) 25.2 kg/m2 08/15/2011 Height 69.50 inches 5'9.50" Weight 177.00 lb Heart Rate 74 /min BP Systolic Sitting 120 mmHg l BP Diastolic Sitting 72 mmHg l BMI (Body Mass Index) 25.8 kg/m2 07/07/2011 Height 69.50 inches 5'9.50" Weight 175.00 lb Heart Rate 76 /min BP Systolic Sitting 134 mmHg BP Diastolic Sitting 76 mmHg BMI (Body Mass Index) 25.5 kg/m2 Results Test Date Test Result H/L Range Note Order 09/15/2017 EKG <pending> Laboratory test 08/28/2017 Surgical Pathology SEE RESULT BELOW 1, 2 finding CBC Auto Diff 08/14/2017 White Blood Count 5.3 10^3/uL 3.5-10.8 Red Blood Count 3.74 10^6/uL Low 4.0-5.4 Hemoglobin 11.0 g/dL Low 12.0-16.0 Hematocrit 31 % Low 35-47 Mean Corpuscular Volume 83 fL 80-97 Mean Corpuscular Hemoglobin 29 pg 27-31 Mean Corpuscular HGB Conc 35 g/dL 31-36 Red Cell Distribution Width 13 % 10.5-15 Platelet Count 259 10^3/uL 150-450 Mean Platelet Volume 7 um3 Low 7.4-10.4 Abs Neutrophils 3.7 10^3/uL 1.5-7.7 Abs Lymphocytes 1.0 10^3/uL 1.0-4.8 Abs Monocytes 0.4 10^3/uL 0-0.8 Abs Eosinophils 0.2 10^3/uL 0-0.6 Abs Basophils 0 10^3/uL 0-0.2 Abs Nucleated RBC 0 10^3/uL Granulocyte % 69.9 % 38-83 Lymphocyte % 18.6 % Low 25-47 Monocyte % 7.7 % High 0-7 Eosinophil % 3.1 % 0-6 Basophil % 0.7 % 0-2 Nucleated Red Blood Cells % 0 Comp Metabolic Panel 08/14/2017 Sodium 135 mmol/L 133-145 Potassium 3.5 mmol/L 3.5-5.0 Chloride 101 mmol/L 101-111 Co2 Carbon Dioxide 29 mmol/L 22-32 Anion Gap 5 mmol/L 2-11 Glucose 93 mg/dL 70-100 Blood Urea Nitrogen 20 mg/dL 6-24 Creatinine 0.77 mg/dL 0.51-0.95 BUN/Creatinine Ratio 26.0 High 8-20 Calcium 10.2 mg/dL 8.6-10.3 Total Protein 8.5 g/dL 6.4-8.9 Albumin 4.4 g/dL 3.2-5.2 Globulin 4.1 g/dL High 2-4 Albumin/Globulin Ratio 1.1 1-3 Total Bilirubin 0.30 mg/dL 0.2-1.0 Alkaline Phosphatase 42 U/L 34-104 Alt 15 U/L 7-52 Ast 18 U/L 13-39 Egfr Non- 79.0 >60 Egfr 101.6 >60 3 Laboratory test finding 08/14/2017 Amylase 37 U/L 29-103 Lipase 26 U/L 11.0-82.0 Inr/Protime 08/14/2017 Inr 0.92 0.77-1.02 Laboratory test finding 08/14/2017 Partial Thrombo Time 29.9 seconds 26.0 -36.3 PTT Lactic Acid 0.7 mmol/L 0.5-2.0 4 Type & Screen 08/14/2017 Patient Blood Type O Positive Antibody Screen NEGATIVE Laboratory test finding 08/14/2017 Blood Culture SEE RESULT BELOW 5 Urinalysis Profile 08/14/2017 Urine Appearance Cloudy Urine Specific [place] 1.009 Low 1.010-1.030 Urine pH 7.0 5-9 Urine Urobilinogen Negative Negative Urine Ketones Negative Negative Urine Protein 1+(30 mg/dL) Negative Urine Leukocytes Negative Negative Urine Blood 3+ Negative Urine Nitrite Negative Negative Urine Bilirubin Negative Negative Urine Glucose Negative Negative Urine White Blood Cell Absent Absent Urine Red Blood Cell 3+(>10/hpf) Absent Urine Bacteria Absent Absent Urine Squamous Epithelial Cell Present Absent Urine Color Red Inr/Protime 08/11/2017 Inr 0.98 0.77-1.02 6 Laboratory test finding 08/11/2017 Partial Thrombo Time 29.7 seconds 26.0 -36.3 6, 7 PTT CBC Auto Diff 08/11/2017 White Blood Count 3.9 10^3/uL 3.5-10.8 6 Red Blood Count 3.98 10^6/uL Low 4.0-5.4 6 Hemoglobin 11.4 g/dL Low 12.0-16.0 6 Hematocrit 33 % Low 35-47 6 Mean Corpuscular Volume 84 fL 80-97 6 Mean Corpuscular Hemoglobin 29 pg 27-31 6 Mean Corpuscular HGB Conc 34 g/dL 31-36 6 Red Cell Distribution Width 13 % 10.5-15 6 Platelet Count 269 10^3/uL 150-450 6 Mean Platelet Volume 7 um3 Low 7.4-10.4 6 Abs Neutrophils 2.1 10^3/uL 1.5-7.7 6 Abs Lymphocytes 1.1 10^3/uL 1.0-4.8 6 Abs Monocytes 0.4 10^3/uL 0-0.8 6 Abs Eosinophils 0.1 10^3/uL 0-0.6 6 Abs Basophils 0 10^3/uL 0-0.2 6 Abs Nucleated RBC 0 10^3/uL 6 Granulocyte % 55.1 % 38-83 6 Lymphocyte % 29.3 % 25-47 6 Monocyte % 10.8 % High 0-7 6 Eosinophil % 3.6 % 0-6 6 Basophil % 1.2 % 0-2 6 Nucleated Red Blood Cells % 0.1 6 Comp Metabolic Panel 08/11/2017 Sodium 134 mmol/L 133-145 6 Potassium 3.6 mmol/L 3.5-5.0 6 Chloride 102 mmol/L 101-111 6 Co2 Carbon Dioxide 25 mmol/L 22-32 6 Anion Gap 7 mmol/L 2-11 6 Glucose 90 mg/dL 70-100 6 Blood Urea Nitrogen 16 mg/dL 6-24 6 Creatinine 0.77 mg/dL 0.51-0.95 6 BUN/Creatinine Ratio 20.8 High 8-20 6 Calcium 9.9 mg/dL 8.6-10.3 6 Total Protein 8.1 g/dL 6.4-8.9 6 Albumin 4.2 g/dL 3.2-5.2 6 Globulin 3.9 g/dL 2-4 6 Albumin/Globulin Ratio 1.1 1-3 6 Total Bilirubin 0.50 mg/dL 0.2-1.0 6 Alkaline Phosphatase 37 U/L 34-104 6 Alt 13 U/L 7-52 6 Ast 17 U/L 13-39 6 Egfr Non- 79.0 >60 6 Egfr 101.6 >60 6, 8 Laboratory test finding 08/11/2017 HCG < 0.60 mIU/mL 6, 9 Basic Metabolic Panel 06/02/2017 Sodium 132 mmol/L Low 133-145 Potassium 3.8 mmol/L 3.5-5.0 Chloride 102 mmol/L 101-111 Co2 Carbon Dioxide 24 mmol/L 22-32 Anion Gap 6 mmol/L 2-11 Glucose 109 mg/dL High 70-100 Blood Urea Nitrogen 18 mg/dL 6-24 Creatinine 0.70 mg/dL 0.51-0.95 BUN/Creatinine Ratio 25.7 High 8-20 Calcium 9.6 mg/dL 8.6-10.3 Egfr Non- 88.6 >60 Egfr 113.9 >60 10 Ua Routine 01/31/2017 Ua Specific [place] 1.015 Ua PH 5 Ua Color light yellow Ua Appera clear Ua WBC - Ua Protein - Ua Glucose norm Ua Ketones - Ua Bilirubin - Ua Urobilinogen norm Ua Nitrite - Ua Occult Blood - Basic Metabolic Panel 11/23/2016 Sodium 132 mmol/L Low 133-145 Potassium 4.3 mmol/L 3.5-5.0 Chloride 102 mmol/L 101-111 Co2 Carbon Dioxide 27 mmol/L 22-32 Anion Gap 3 mmol/L 2-11 Glucose 102 mg/dL High 70-100 Blood Urea Nitrogen 18 mg/dL 6-24 Creatinine 0.78 mg/dL 0.51-0.95 BUN/Creatinine Ratio 23.1 High 8-20 Calcium 9.7 mg/dL 8.6-10.3 Egfr Non- 78.2 >60 Egfr 100.5 >60 11 Lipid Profile (Trig/Chol/HDL) 11/23/2016 Triglycerides 54 mg/dL 12 Cholesterol 210 mg/dL 13 HDL Cholesterol 65.9 mg/dL 14 LDL Cholesterol 133 mg/dL 15 HIV 1/2 AB Evaluation 11/23/2016 HIV 1 2 Antibody Nonreactive Nonreactive 16 Laboratory test 10/19/2016 Test Urine negative finding GC/Chlamydia Amplified 10/19/2016 Chlamydia trachomatis Negative Negative 17 Rna Rna Neisseria gonorrhoeae (GC) Rna Negative Negative 17 Laboratory test 10/19/2016 Gardnerella/Yeast: Vaginal SEE RESULT 17, 18 finding Dna BELOW Trichomonas Vaginalis Rna Negative Negative 17, 19 Ua Routine 10/19/2016 Ua Specific [place] 1.000 Ua PH 7 Ua Color LIGHT YELLOW Ua Appera CLEAR Ua WBC NEGATIVE Ua Protein NEGATIVE Ua Glucose NORMAL Ua Ketones NEGATIVE Ua Bilirubin NEGATIVE Ua Urobilinogen NORMAL Ua Nitrite NEGATIVE Ua Occult Blood NEGATIVE Laboratory test 08/18/2016 Gardnerella/Yeast: SEE RESULT 20, 21 finding Vaginal Dna BELOW GC/Chlamydia 08/18/2016 Chlamydia trachomatis Rna Negative Negative 20 Amplified Rna Neisseria gonorrhoeae (GC) Rna Negative Negative 20 Laboratory test finding 08/18/2016 Lactic Acid 0.4 mmol/L Low 0.5-2.0 22 Urinalysis Profile 08/18/2016 Urine Color Yellow Urine Appearance Cloudy Urine Specific [place] 1.010 1.010-1.030 Urine pH 8.0 5-9 Urine Urobilinogen Negative Negative Urine Ketones Negative Negative Urine Protein Negative Negative Urine Leukocytes Negative Negative Urine Blood Negative Negative Urine Nitrite Negative Negative Urine Bilirubin Negative Negative Urine Glucose Negative Negative CBC Auto Diff 08/18/2016 White Blood Count 3.5 10^3/uL 3.5-10.8 Red Blood Count 4.09 10^6/uL 4.0-5.4 Hemoglobin 11.9 g/dL Low 12.0-16.0 Hematocrit 35 % 35-47 Mean Corpuscular Volume 85 fL 80-97 Mean Corpuscular Hemoglobin 29 pg 27-31 Mean Corpuscular HGB Conc 34 g/dL 31-36 Red Cell Distribution Width 13 % 10.5-15 Platelet Count 263 10^3/uL 150-450 Mean Platelet Volume 7 um3 Low 7.4-10.4 Abs Neutrophils 1.7 10^3/uL 1.5-7.7 Abs Lymphocytes 1.2 10^3/uL 1.0-4.8 Abs Monocytes 0.4 10^3/uL 0-0.8 Abs Eosinophils 0.2 10^3/uL 0-0.6 Abs Basophils 0 10^3/uL 0-0.2 Abs Nucleated RBC 0 10^3/uL Granulocyte % 49.4 % 38-83 Lymphocyte % 33.1 % 25-47 Monocyte % 10.4 % High 1-9 Eosinophil % 5.7 % 0-6 Basophil % 1.4 % 0-2 Nucleated Red Blood Cells % 0.1 Comp Metabolic Panel 08/18/2016 Sodium 133 mmol/L 133-145 Potassium 3.8 mmol/L 3.5-5.0 Chloride 103 mmol/L 101-111 Co2 Carbon Dioxide 25 mmol/L 22-32 Anion Gap 5 mmol/L 2-11 Glucose 97 mg/dL 70-100 Blood Urea Nitrogen 13 mg/dL 6-24 Creatinine 0.84 mg/dL 0.51-0.95 BUN/Creatinine Ratio 15.5 8-20 Calcium 9.9 mg/dL 8.6-10.3 Total Protein 8.3 g/dL 6.4-8.9 Albumin 4.3 g/dL 3.2-5.2 Globulin 4.0 g/dL 2-4 Albumin/Globulin Ratio 1.1 1-3 Total Bilirubin 0.70 mg/dL 0.2-1.0 Alkaline Phosphatase 33 U/L Low 34-104 Alt 17 U/L 7-52 Ast 18 U/L 13-39 Egfr Non- 71.8 >60 Egfr 92.3 >60 23 Laboratory test finding 08/18/2016 Amylase 47 U/L 29-103 Lipase 33 U/L 11.0-82.0 C Reactive Protein < 1.00 mg/L < 5.00 24 Lactic Acid 0.4 mmol/L Low 0.5-2.0 25 HCG < 0.60 mIU/mL 26 CBC Auto Diff 06/04/2016 White Blood Count 5.9 10^3/uL 3.5-10.8 Red Blood Count 4.18 10^6/uL 4.0-5.4 Hemoglobin 11.8 g/dL Low 12.0-16.0 Hematocrit 36 % 35-47 Mean Corpuscular Volume 85 fL 80-97 Mean Corpuscular Hemoglobin 28 pg 27-31 Mean Corpuscular HGB Conc 33 g/dL 31-36 Red Cell Distribution Width 13 % 10.5-15 Platelet Count 257 10^3/uL 150-450 Mean Platelet Volume 7 um3 Low 7.4-10.4 Abs Neutrophils 3.7 10^3/uL 1.5-7.7 Abs Lymphocytes 1.4 10^3/uL 1.0-4.8 Abs Monocytes 0.5 10^3/uL 0-0.8 Abs Eosinophils 0.3 10^3/uL 0-0.6 Abs Basophils 0 10^3/uL 0-0.2 Abs Nucleated RBC 0 10^3/uL Granulocyte % 62.1 % 38-83 Lymphocyte % 24.6 % Low 25-47 Monocyte % 8.4 % 1-9 Eosinophil % 4.3 % 0-6 Basophil % 0.6 % 0-2 Nucleated Red Blood Cells % 0 Comp Metabolic Panel 06/04/2016 Sodium 128 mmol/L Low 133-145 Potassium 3.7 mmol/L 3.5-5.0 Chloride 105 mmol/L 101-111 Co2 Carbon Dioxide 25 mmol/L 22-32 Anion Gap -2 mmol/L Low 2-11 Glucose 103 mg/dL High 70-100 Blood Urea Nitrogen 19 mg/dL 6-24 Creatinine 0.76 mg/dL 0.51-0.95 BUN/Creatinine Ratio 25.0 High 8-20 Calcium 10.2 mg/dL 8.6-10.3 Total Protein 8.3 g/dL 6.4-8.9 Albumin 4.5 g/dL 3.2-5.2 Globulin 3.8 g/dL 2-4 Albumin/Globulin Ratio 1.2 1-3 Total Bilirubin 0.40 mg/dL 0.2-1.0 Alkaline Phosphatase 35 U/L 34-104 Alt 16 U/L 7-52 Ast 16 U/L 13-39 Egfr Non- 80.9 >60 Egfr 104.0 >60 27 Laboratory test finding 06/04/2016 C Reactive Protein 4.17 mg/L < 5.00 28 Urinalysis Profile 06/04/2016 Urine Color Sushila Urine Appearance Cloudy Urine Specific [place] 1.012 1.010-1.030 Urine pH 6.0 5-9 Urine Urobilinogen Negative Negative Urine Ketones Negative Negative Urine Protein Negative Negative Urine Leukocytes 3+ Negative Urine Blood 1+ Negative * * Negative 29 Urine Nitrite Positive Negative Urine Bilirubin Negative Negative Urine Glucose Negative Negative Urine White Blood Cell 3+(>20/hpf) Absent Urine Red Blood Cell 1+(3-5/hpf) Absent Urine Bacteria 1+ Absent Urine Squamous Epithelial Cell Present Absent Laboratory test 06/04/2016 Gardnerella/Yeast: SEE RESULT 30 finding Vaginal Dna BELOW Laboratory test 06/04/2016 Trichomonas Vaginalis Rna Negative Negative 31 finding Urine Culture And 06/04/2016 Urine Culture SEE RESULT 32 Sensitivities BELOW GC/Chlamydia 06/04/2016 Chlamydia trachomatis Rna Negative Negative Amplified Rna Neisseria gonorrhoeae (GC) Rna Negative Negative Comp Metabolic Panel 05/07/2016 Sodium 133 mmol/L 133-145 33 Potassium 4.2 mmol/L 3.5-5.0 33 Chloride 102 mmol/L 101-111 33 Co2 Carbon Dioxide 26 mmol/L 22-32 33 Anion Gap 5 mmol/L 2-11 33 Glucose 82 mg/dL 70-100 33 Blood Urea Nitrogen 20 mg/dL 6-24 33 Creatinine 0.78 mg/dL 0.51-0.95 33 BUN/Creatinine Ratio 25.6 High 8-20 33 Calcium 9.5 mg/dL 8.6-10.3 33 Total Protein 7.9 g/dL 6.4-8.9 33 Albumin 4.3 g/dL 3.2-5.2 33 Globulin 3.6 g/dL 2-4 33 Albumin/Globulin Ratio 1.2 1-3 33 Total Bilirubin 0.60 mg/dL 0.2-1.0 33 Alkaline Phosphatase 34 U/L 34-104 33 Alt 16 U/L 7-52 33 Ast 19 U/L 13-39 33 Egfr Non- 78.5 >60 33 Egfr 101.0 >60 33, 34 Laboratory test 05/07/2016 TSH (Thyroid Stim 0.23 mcIU/mL Low 0.34-5.60 33, 35 finding Horm) CBC Auto Diff 05/07/2016 White Blood Count 4.4 10^3/uL 3.5-10.8 33 Red Blood Count 4.12 10^6/uL 4.0-5.4 33 Hemoglobin 11.9 g/dL Low 12.0-16.0 33 Hematocrit 34 % Low 35-47 33 Mean Corpuscular Volume 83 fL 80-97 33 Mean Corpuscular Hemoglobin 29 pg 27-31 33 Mean Corpuscular HGB Conc 35 g/dL 31-36 33 Red Cell Distribution Width 13 % 10.5-15 33 Platelet Count 270 10^3/uL 150-450 33 Mean Platelet Volume 7 um3 Low 7.4-10.4 33 Abs Neutrophils 2.3 10^3/uL 1.5-7.7 33 Abs Lymphocytes 1.6 10^3/uL 1.0-4.8 33 Abs Monocytes 0.4 10^3/uL 0-0.8 33 Abs Eosinophils 0.1 10^3/uL 0-0.6 33 Abs Basophils 0 10^3/uL 0-0.2 33 Abs Nucleated RBC 0 10^3/uL 33 Granulocyte % 51.4 % 38-83 33 Lymphocyte % 35.5 % 25-47 33 Monocyte % 8.7 % 1-9 33 Eosinophil % 3.4 % 0-6 33 Basophil % 1.0 % 0-2 33 Nucleated Red Blood Cells % 0 33 Lipid Profile (Trig/Chol/HDL) 01/26/2016 Triglycerides 49 mg/dL 36 Cholesterol 171 mg/dL 37 HDL Cholesterol 65.0 mg/dL 38 LDL Cholesterol 96 mg/dL 39 Laboratory test finding 01/26/2016 Glucose 85 mg/dL 70-100 Basic Metabolic Panel 01/26/2016 Sodium 135 mmol/L 133-145 Potassium 3.9 mmol/L 3.5-5.0 Chloride 102 mmol/L 101-111 Co2 Carbon Dioxide 28 mmol/L 22-32 Anion Gap 5 mmol/L 2-11 Blood Urea Nitrogen 15 mg/dL 6-24 Creatinine 0.80 mg/dL 0.51-0.95 BUN/Creatinine Ratio 18.8 8-20 Calcium 9.8 mg/dL 8.6-10.3 Egfr Non- 76.2 >60 Egfr 98.0 >60 40 Creatinine 01/25/2016 Creatinine 0.85 mg/dL 0.51-0.95 Egfr Non- 71.1 >60 Egfr 91.4 >60 41 Laboratory test finding 01/25/2016 HCG < 0.60 mIU/mL 42 Blood Urea Nitrogen BUN 16 mg/dL 6-24 Ua Routine 03/17/2015 Ua Specific [place] 1.005 Ua PH 8.5 Ua Color sushila Ua Appera clear Ua WBC neg Ua Protein neg Ua Glucose neg Ua Ketones trace Ua Bilirubin neg Ua Urobilinogen normal Ua Nitrite neg Ua Occult Blood large 200+ CBC Auto Diff 02/24/2015 White Blood Count 2.8 10^3/uL Low 4.8-10.8 Red Blood Count 3.83 10^6/uL Low 4.0-5.4 Hemoglobin 10.9 g/dL Low 12.0-16.0 Hematocrit 33 % Low 35-47 Mean Corpuscular Volume 86 fL 80-97 Mean Corpuscular Hemoglobin 28 pg 27-31 Mean Corpuscular HGB Conc 33 g/dL 31-36 Red Cell Distribution Width 13 % 10.5-15 Platelet Count 247 10^3/uL 150-450 Mean Platelet Volume 7 um3 Low 7.4-10.4 Abs Neutrophils 1.1 10^3/uL Low 1.5-7.7 Abs Lymphocytes 1.2 10^3/uL 1.0-4.8 Abs Monocytes 0.3 10^3/uL 0-0.8 Abs Eosinophils 0.2 10^3/uL 0-0.6 Abs Basophils 0 10^3/uL 0-0.2 Abs Nucleated RBC 0 10^3/uL Granulocyte % 38.4 % 38-83 Lymphocyte % 42.7 % 25-47 Monocyte % 12.4 % High 1-9 Eosinophil % 5.6 % 0-6 Basophil % 0.9 % 0-2 Nucleated Red Blood Cells % 0.1 Comp Metabolic Panel 02/24/2015 Sodium 136 mmol/L 133-145 Potassium 4.0 mmol/L 3.5-5.0 Chloride 103 mmol/L 101-111 Co2 Carbon Dioxide 26 mmol/L 22-32 Anion Gap 7 mmol/L 2-11 Glucose 106 mg/dL High 70-100 Blood Urea Nitrogen 16 mg/dL 6-24 Creatinine 0.86 mg/dL 0.51-0.95 BUN/Creatinine Ratio 18.6 8-20 Calcium 9.3 mg/dL 8.6-10.3 Total Protein 8.1 g/dL 6.4-8.9 Albumin 4.5 g/dL 3.2-5.2 Globulin 3.6 g/dL 2-4 Albumin/Globulin Ratio 1.3 1-3 Total Bilirubin 0.40 mg/dL 0.2-1.0 Alkaline Phosphatase 33 U/L Low 34-104 Alt 13 U/L 7-52 Ast 17 U/L 13-39 Egfr Non- 70.4 >60 Egfr 90.6 >60 43 Laboratory test 02/24/2015 Hemoglobin A1c 5.6 % Less than 6.0 44 finding (Glyco HGB) CBC Auto Diff 12/10/2013 White Blood Count 3.6 10^3/uL Low 4.8-10.8 45 Red Blood Count 3.89 10^6/uL Low 4.0-5.4 45 Hemoglobin 11.6 g/dL Low 12.0-16.0 45 Hematocrit 33 % Low 35-47 45 Mean Corpuscular Volume 84 fL 80-97 45 Mean Corpuscular Hemoglobin 30 pg 27-31 45 Mean Corpuscular HGB Conc 36 g/dL 31-36 45 Red Cell Distribution Width 13 % 10.5-15 45 Platelet Count 278 10^3/uL 150-450 45 Mean Platelet Volume 7 um3 Low 7.4-10.4 45 Abs Neutrophils 2.0 10^3/uL 1.5-7.7 45 Abs Lymphocytes 1.2 10^3/uL 1.0-4.8 45 Abs Monocytes 0.3 10^3/uL 0-0.8 45 Abs Eosinophils 0.1 10^3/uL 0-0.6 45 Abs Basophils 0 10^3/uL 0-0.2 45 Abs Nucleated RBC 0 10^3/uL 45 Granulocyte % 55.3 % 38-83 45 Lymphocyte % 32.5 % 25-47 45 Monocyte % 8.0 % 1-9 45 Eosinophil % 3.2 % 0-6 45 Basophil % 1.0 % 0-2 45 Nucleated Red Blood Cells % 0.1 45 Lipid Profile (Trig/Chol/HDL) 12/10/2013 Triglycerides 49 mg/dL 45, 46 Cholesterol 196 mg/dL 45, 47 HDL Cholesterol 60.5 mg/dL 45, 48 LDL Cholesterol 126 mg/dL 45, 49 Comp Metabolic Panel 12/10/2013 Sodium 136 mmol/L 133-145 45 Potassium 4.0 mmol/L 3.7-5.6 45 Chloride 104 mmol/L 101-111 45 Co2 Carbon Dioxide 27 mmol/L 22-32 45 Anion Gap 5 mmol/L 2-11 45 Glucose 85 mg/dL 70-100 45 Blood Urea Nitrogen 16 mg/dL 6-24 45 Creatinine 0.81 mg/dL 0.51-0.95 45 BUN/Creatinine Ratio 19.8 8-20 45 Calcium 9.9 mg/dL 8.6-10.3 45 Total Protein 8.3 g/dL 6.4-8.9 45 Albumin 4.7 g/dL 3.2-5.2 45 Globulin 3.6 g/dL 2-4 45 Albumin/Globulin Ratio 1.3 1-3 45 Total Bilirubin 0.70 mg/dL 0.2-1.0 45 Alkaline Phosphatase 32 U/L Low 34-104 45 Alt 12 U/L 7-52 45 Ast 16 U/L 13-39 45 Egfr Non- 75.8 >60 45 Egfr 97.5 >60 45, 50 CBC Auto Diff 09/21/2012 White Blood Count 4.0 10^3/uL Low 4.8-10.8 Red Blood Count 3.77 10^6/uL Low 4.0-5.4 Hemoglobin 11.1 g/dL Low 12.0-16.0 Hematocrit 32 % Low 35-47 Mean Corpuscular Volume 85 fL 80-97 Mean Corpuscular Hemoglobin 30 pg 27-31 Mean Corpuscular HGB Conc 35 g/dL 31-36 Red Cell Distribution Width 13 % 10.5-15 Platelet Count 260 10^3/uL 150-450 Mean Platelet Volume 7 um3 Low 7.4-10.4 Abs Neutrophils 2.2 10^3/uL 1.5-7.7 Abs Lymphocytes 1.2 10^3/uL 1.0-4.8 Abs Monocytes 0.4 10^3/uL 0-0.8 Abs Eosinophils 0.1 10^3/uL 0-0.6 Abs Basophils 0 10^3/uL 0-0.2 Abs Nucleated RBC 0 10^3/uL Granulocyte % 56.4 % 38-83 Lymphocyte % 30.0 % 25-47 Monocyte % 9.9 % High 1-9 Eosinophil % 2.7 % 0-6 Basophil % 1.0 % 0-2 Nucleated Red Blood Cells % 0.1 Laboratory test finding 09/21/2012 TSH (Thyroid Stimulating 0.46 miu/mL 0.34-5.60 51 Horm) Urinalysis 09/21/2012 Urine Color Yellow W/Microscopic Urine Appearance Clear Urine Specific [place] 1.010 1.010-1.030 Urine Esterase Negative Negative Urine Nitrate Negative Negative Urine Urobilinogen Negative E.U./dL Negative Urine Protein Negative mg/dL Negative Urine pH 7.0 5-9 Urine Blood Negative Negative Urine Ketones Negative mg/dL Negative Urine Bilirubin Negative Negative Urine Glucose Negative mg/dL Negative Urine Epithelial Cells 1+ Squamous /hpf None Seen Lipid Profile (Trig/Chol/HDL) 09/21/2012 Triglycerides 29 mg/dL Low 40- 200 Cholesterol 207 mg/dL High Less than 200 HDL Cholesterol 53 mg/dL 40-60 52 Cholesterol/HDL Ratio 3.9 Average 1-4.44 LDL Cholesterol 148.2 mg/dL High Less Than 100 53 Comp Metabolic Panel 09/21/2012 Sodium 136 mmol/L 133-145 Potassium 4.0 mmol/L 3.5-5.0 Chloride 105 mmol/L 101-111 Co2 Carbon Dioxide 24.0 mmol/L 22-32 Anion Gap 7.0 mmol/L 2-11 Glucose 94 mg/dL 70-100 Blood Urea Nitrogen 14 mg/dL 6-24 Creatinine 0.80 mg/dL 0.50-1.40 BUN/Creatinine Ratio 17.5 8-20 Calcium 9.6 mg/dL 8.1-9.9 Total Protein 6.8 g/dL 6.2-8.1 Albumin 4.1 g/dL 3.6-5.4 Globulin 2.7 g/dL 2-4 Albumin/Globulin Ratio 1.5 1-3 Total Bilirubin 0.8 mg/dL 0.4-1.5 Alkaline Phosphatase 39 U/L 30-110 Alt 18 U/L 14-54 Ast 20 U/L 12-42 Egfr Non- 77.2 >60 Egfr 99.3 >60 54 Laboratory test 08/27/2012 Cytology RUN DATE: finding <SEE NOTE> Human Papilloma Virus 08/27/2012 Human Papillomavirus CERV Source Human Papillomavirus High Risk Negative Negative 56 Laboratory test finding 04/17/2012 Affirm Vaginal Dna Probe (SEE NOTE) 57 Laboratory test finding 01/24/2012 LDH 141 U/L 95-185 Vitamin B12 777 pg/mL 180-914 Erythropoietin 8.1 mIU/mL 2.6 - 18.5 58 Retic Count 01/24/2012 Reticulocyte Count 1.27 % 0.5-1.5 Corrected Retic 0.9 % 0.5-1.5 Retic Index 0.6 Mean Retic Volume 104.6 Immature Retic Fraction 0.36 RBC Retic Count 3.79 CUMM Low 4.6-6.2 Hematocrit For Retic Coun 32 % Low 35-47 CBC Auto Diff 01/24/2012 White Blood Count 4.4 CUMM Low 4.8-10.8 Red Cell Count 3.79 CUMM Low 4.2-5.4 Hemoglobin 11.5 g/dL Low 12.0-16.0 Hematocrit 32 % Low 35-47 Mean Corpuscular Volume 84 um3 79-97 Mean Corpuscular Hemoglob 30 pg 27-31 Mean Corpuscular HGB Cone 36 g/dL 32-36 Redcell Distribution WDTH 13 % 10.5-15 Platelet Count 302 CUMM 150-450 Mean Platelet Volume 7.3 um3 Low 7.4-10.4 Gran % 56.7 % 38-83 Lymph % 32.4 % 20-45 Mononuclear % 7.3 % 1-9 Eosinophil % 2.6 % 0-6 Basophil % 1.0 % 0-2 Abs Lymphs 1.4 1.0-4.8 Abs Mononuclear 0.3 0-0.8 Absolute Neutrophil Count 2.5 1.5-7.7 Abs Eosinophils 0.1 0-0.6 Abs Basophils 0 0-0.2 CBC Auto Diff 01/04/2012 White Blood Count 5.0 CUMM 4.8-10.8 Red Cell Count 3.69 CUMM Low 4.2-5.4 Hemoglobin 11.2 g/dL Low 12.0-16.0 Hematocrit 32 % Low 35-47 Mean Corpuscular Volume 86 um3 79-97 Mean Corpuscular Hemoglob 30 pg 27-31 Mean Corpuscular HGB Cone 36 g/dL 32-36 Redcell Distribution WDTH 13 % 10.5-15 Platelet Count 284 CUMM 150-450 Mean Platelet Volume 6.9 um3 Low 7.4-10.4 Absolute Neutrophil Count 2.9 1.5-7.7 Lipid Profile (Trig/Chol/HDL) 01/04/2012 Triglyceride 67 mg/dL 40-200 Cholesterol 213 mg/dL High Less Than 200 59 High Density Lipoprotein 60 mg/dL 40-60 60 Cholesterol/HDL Ratio 3.55 AVERAGE 1-4.44 Low Density Lipoprotein 140 mg/dL High Less Than 100 61 Laboratory test finding 01/04/2012 TSH 0.66 MIU/ML 0.34-5.60 Hemoglobin Electropheresis 01/04/2012 Hemoglobin A2 2.7 % 2.0-3.3 Hemoglobin F 0.2 % 0.0-0.9 Hemoglobin A 97.1 % 95.8-98.0 Hemoglobin Variant 0.0 % () 62 HGB Electrophoresis Interp . () 63 Celiac Panel 01/04/2012 Endomysial Abs Negative Negative 64 Gliadin Igg <10.0 U () 65 Gliadin Iga <10.0 U () 66 Reticulin AB Negative Negative 67 Manual Differential 01/04/2012 Polysegmented Neutrophil 53 % 38-83 Lymphocyte 39 % 25-47 Monocyte 6 % 0-13 Eosinophil 1 % 0-6 Basophil 1 % 0-2 Laboratory test 01/02/2012 Cytology <SEE 68 finding NOTE> Laboratory test 11/28/2011 Sickle Cell NEGATIVE Negative finding Iron & Iron 11/28/2011 Iron Total 97 g/dL 28-170 Binding Capacity Unsaturated Iron Binding 310 g/dL Total Iron Binding Capacity 407 g/dL 250-450 % Iron Saturation 24 % 15-55 Laboratory test finding 11/28/2011 Folic Acid 23.3 NG/ML See Below 69 Vitamin B12 729 pg/mL 180-914 Comp Metabolic Panel 11/28/2011 Sodium 135 mmol/L 135-145 Potassium 4.1 mmol/L 3.5-5.0 Chloride 101 mmol/L 101-111 Co2 (Carbon Dioxide) 27.0 mmol/L 22-32 Anion Gap 7.0 mmol/L 2-11 70 Glucose 98 mg/dL 70-100 BUN 13 mg/dL 6-24 Creatinine 0.7 mg/dL 0.50-1.40 One Over Creatinine 1.42 BUN/Creatinine Ratio 18.6 8-20 Calcium 10.0 mg/dL High 8.1-9.9 Total Protein 7.8 GM/DL 6.2-8.1 Albumin 4.6 GM/DL 3.6-5.4 Globulin 3.2 GM/DL 2-4 Albumin/Globulin Ratio 1.4 1-3 Bilirubin Total 0.6 mg/dL 0.4-1.5 71 Alkaline Phosphatase 37 U/L 30-110 Alt (SGPT) 14 U/L 14-54 Ast (Sgot) 18 U/L 12-42 eGFR Non- 90.5 > 60 eGFR 116.4 > 60 72 CBC Auto Diff 11/18/2011 White Blood Count 5.0 CUMM 4.8-10.8 Red Cell Count 3.71 CUMM Low 4.2-5.4 Hemoglobin 10.8 g/dL Low 12.0-16.0 Hematocrit 32 % Low 35-47 Mean Corpuscular Volume 85 um3 79-97 Mean Corpuscular Hemoglob 29 pg 27-31 Mean Corpuscular HGB Cone 34 g/dL 32-36 Redcell Distribution WDTH 12 % 10.5-15 Platelet Count 293 CUMM 150-450 Mean Platelet Volume 7.2 um3 Low 7.4-10.4 Gran % 59.8 % 38-83 Lymph % 29.2 % 25-47 Mononuclear % 8.8 % 1-9 Eosinophil % 1.8 % 0-6 Basophil % 0.4 % 0-2 Abs Lymphs 1.5 1.0-4.8 Abs Mononuclear 0.4 0-0.8 Absolute Neutrophil Count 3.0 1.5-7.7 Abs Eosinophils 0.1 0-0.6 Abs Basophils 0 0-0.2 Laboratory test finding 11/18/2011 Ferritin 19 NG/ML 11.0-307 Iron & Iron Binding Capacity 08/15/2011 Iron Total 99 g/dL 28-170 Unsaturated Iron Binding 287 g/dL Total Iron Binding Capacity 386 g/dL 250-450 % Iron Saturation 26 % 15-55 Laboratory test finding 08/15/2011 Ferritin 22 NG/ML 11.0-307 Vitamin B12 653 pg/mL 180-914 Folic Acid 19.5 NG/ML See Below 73 Comp Metabolic Panel 07/07/2011 Sodium 134 mmol/L Low 135-145 Potassium 4.3 mmol/L 3.5-5.0 Chloride 102 mmol/L 101-111 Co2 (Carbon Dioxide) 29.0 mmol/L 22-32 Anion Gap 3.0 mmol/L 2-11 74 Glucose 84 mg/dL 70-100 BUN 17 mg/dL 6-24 Creatinine 0.8 mg/dL 0.50-1.40 One Over Creatinine 1.25 BUN/Creatinine Ratio 21.3 High 8-20 Calcium 9.7 mg/dL 8.1-9.9 Total Protein 7.8 GM/DL 6.2-8.1 Albumin 4.5 GM/DL 3.6-5.4 Globulin 3.3 GM/DL 2-4 Albumin/Globulin Ratio 1.4 1-3 Bilirubin Total 0.8 mg/dL 0.4-1.5 75 Alkaline Phosphatase 43 U/L 30-110 Alt (SGPT) 19 U/L 14-54 Ast (Sgot) 20 U/L 12-42 eGFR Non- 77.6 > 60 eGFR 99.8 > 60 76 Laboratory test finding 07/07/2011 Digoxin < 0.1 NG/ML Low 0.5-1.5 77 1 [id number] 2 SEE RESULT BELOW Name: ONEIDA COREY : [address]: Haylee Cordero MD Acct: [id number] Unit: [id number] AGE: 52 Location: [facility] Re08/28/17 SEX: F Status: REG REF SPEC: [id number] LATASHA: 08/28/17-1308 [facility] DR: Radha Núñez MD REQ: [id number] RECD: 08/28/176416 STATUS: RENATA WATTERS DR: Haylee Cordero MD _ ORDERED: LEVEL 4/2, IMMUNO-FIRST, IMMUNO-ADDL, IMMUNO-QUANT/3 COMMENTS: [id number] Immunohistochemical stains, with appropriately reacting controls, were performed with the following results: ER strongly positive, nearly 100% of tumor cells IA negative (0%) HER-2/maritza negative (0+) P63 positive for myoepithelial cells in minute focus of DCIS CD10 positive for myoepithelial cells in minute focus of DCIS Addendum Signed (signature on file) Kortney Lugo MD 09/13 1028 FINAL DIAGNOSIS 1. Breast, left, 12:00, 4 cm from nipple, core biopsy: -- Fibroadenoma. -- No evidence of invasive or in situ carcinoma. 2. Breast, left, 11:00, 1 cm from nipple, core biopsy: -- Invasive ductal adenocarcinoma of breast, with: Size: 7 mm. Tumor extent and distribution: Involves multiple sampled cores. Estimated Henning grade: Estimated tubule formation: 3. Estimated nuclear grade: 3. Estimated mitotic count: 1. Combined Amador histologic grade: 2/3. (12/04 points). Lymphovascular invasion: Not identified. 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 Extent and distribution: Present in association with invasive carcinoma. Architectural pattern: Cribriform and solid types. Nuclear grade: Intermediate. Necrosis: Absent. ER, IA, and Her2/Maritza by immunohistochemistry with appropriate controls: ER: Pending; results will be reported in an addendum. CONTINUED ON NEXT PAGE DEPARTMENT OF PATHOLOGY, [address] [place] [address] Silvestre Collier M.D. Director [facility] # [id number] RUN DATE: 08/30/17 [facility] LAB LIVE PAGE 2 Patient: ONEIDA COREY [id number] (Continued) FINAL DIAGNOSIS (Continued) IA: Pending; results will be reported in an addendum. Her2/Maritza: Pending; results will be reported in an addendum. Microcalcifications: Not identified. Other findings: None. Predicted pTNM histopathologic stage: at least pT1b. COMMENT: Dr. Collier reviewed this case in intradepartmental consultation and agrees with the diagnosis. PRE-OPERATIVE DIAGNOSIS Left breast solid masses, 1) 12:00 4 cm from nipple 0.9 x 0.4 x 1.1 cm; 2) 11 :00 1 cm from nipple 1.4 x 0.9 x 1.4 cm. GROSS DESCRIPTION 1. The specimen is received in formalin labeled, Left Breast Core Biopsy #1 , and consists of a 1.8 x 0.5 x 0.2 cm aggregate of pascual-pink to yellow irregular to cylindrical fibrofatty soft tissue fragments admixed with red-brown blood clot which is submitted entirely in one cassette. 2. The specimen is received in formalin labeled, Left Breast Core Biopsy #2 , and consists of a 1.9 x 1.7 x 0.2 cm aggregate of pascual-white to pink irregular to cylindrical fibrofatty soft tissue fragments admixed with red-brown blood clot which is submitted entirely in one cassette. Signed (signature on file) Kortney Lugo MD 08/13 0912 END OF REPORT DEPARTMENT OF PATHOLOGY, [address] [place] [address] Silvestre Collier M.D. Director [facility] # [id number] 3 Because ethnic data is not always readily available, this report includes an eGFR for both -Americans and non- Americans. The National Kidney Disease Education Program (NKDEP) does not endorse the use of the MDRD equation for patients that are not between the ages of 18 and 70, are , have extremes of body size, muscle mass, or nutritional status, or are non- or non-. According to the National Kidney Foundation, irrespective of diagnosis, the stage of the disease is based on the level of kidney function: Stage Description GFR(mL/min/1.73 m(2)) 1 Kidney damage with normal or decreased GFR 90 2 Kidney damage with mild decrease in GFR 60-89 3 Moderate decrease in GFR 30-59 4 Severe decrease in GFR 15-29 5 Kidney failure <15 (or dialysis) 4 INS Severe Sepsis and Septic Shock Management Bundle Measure requires all lactic acids initially measuring >2.0 mmol/L be repeated. 5 SEE RESULT BELOW Name: ONEIDA COREY : [address]: Luis Miguel Astorga MD Acct: [id number] Unit: [id number] AGE: 52 Location: ED Re08/14/17 SEX: F Status: DEP ER SPEC: [id number] LATASHA: 08/14/17-1917 [facility] [address]: Jennifer SANTIAGO REQ: [id number] RECD: 08/14/17 STATUS: ISACC WATTERS DR: Haylee Astorga MD _ SOURCE: BLOOD,VENO SPDES: ORDERED: Blood Cult Procedure Result Reported Site Aerobic Culture Bottle Final 08/19/17- 1935 ML No Growth Day 5 Anaerobic Culture Bottle Final 08/19/17- 1935 ML No Growth Day 5 * ML - Main Lab . END OF REPORT DEPARTMENT OF PATHOLOGY, [address] [place] [address] Silvestre Collier M.D. Director [facility] # [id number] 6 CALL RESULTS EXT : [id number] 7 CALL RESULTS EXT : [phone] 8 Because ethnic data is not always readily available, this report includes an eGFR for both -Americans and non- Americans. The National Kidney Disease Education Program (NKDEP) does not endorse the use of the MDRD equation for patients that are not between the ages of 18 and 70, are , have extremes of body size, muscle mass, or nutritional status, or are non- or non-. According to the National Kidney Foundation, irrespective of diagnosis, the stage of the disease is based on the level of kidney function: Stage Description GFR(mL/min/1.73 m(2)) 1 Kidney damage with normal or decreased GFR 90 2 Kidney damage with mild decrease in GFR 60-89 3 Moderate decrease in GFR 30-59 4 Severe decrease in GFR 15-29 5 Kidney failure <15 (or dialysis) 9 <5.0 Negative 5.0 - 25.0 Indeterminate (Repeat testing recommended after 72 hours) >25.0 Positive Perimenopausal women can display HCG levels of up to 20 mIU/mL 10 Because ethnic data is not always readily available, this report includes an eGFR for both -Americans and non- Americans. The National Kidney Disease Education Program (NKDEP) does not endorse the use of the MDRD equation for patients that are not between the ages of 18 and 70, are , have extremes of body size, muscle mass, or nutritional status, or are non- or non-. According to the National Kidney Foundation, irrespective of diagnosis, the stage of the disease is based on the level of kidney function: Stage Description GFR(mL/min/1.73 m(2)) 1 Kidney damage with normal or decreased GFR 90 2 Kidney damage with mild decrease in GFR 60-89 3 Moderate decrease in GFR 30-59 4 Severe decrease in GFR 15-29 5 Kidney failure <15 (or dialysis) 11 Because ethnic data is not always readily available, this report includes an eGFR for both -Americans and non- Americans. The National Kidney Disease Education Program (NKDEP) does not endorse the use of the MDRD equation for patients that are not between the ages of 18 and 70, are , have extremes of body size, muscle mass, or nutritional status, or are non- or non-. According to the [employer], irrespective of diagnosis, the stage of the disease is based on the level of kidney function: Stage Description GFR(mL/min/1.73 m(2)) 1 Kidney damage with normal or decreased GFR 90 2 Kidney damage with mild decrease in GFR 60-89 3 Moderate decrease in GFR 30-59 4 Severe decrease in GFR 15-29 5 Kidney failure <15 (or dialysis) 12 Desirable <150 Borderline high 150-199 High 200-499 Very High >500 13 Desirable <200 Borderline high 200-239 High >239 14 Low <40 Desirable: 40-60 High: >60 15 Desirable: <100 mg/dL Near Optimal: 100-129 mg/dL Borderline High: 130-159 mg/dL High: 160-189 mg/dL Very High: >189 mg/dL 16 It is recognized that currently available assays for the detection of antibodies to HIV-1 and/or HIV-2 may not detect all infected individuals. HIV antibodies may be undetectable in some stages of the infection and in some clinical conditions. The performance of this assay has not been established for populations of infants or children. Assayed by Chemiluminescence Microparticle Immunoassay on the Siemens Advia Centaur CP. Values obtained with different methods or kits cannot be used interchangeably.The diagnostic specificity of the ADVIA Centaur 1/O/2 Enhanced assay in the low risk population was 99.90% (6052/6058) with a 95% confidence interval of 99.78 to 99.96%. 17 [id number] 18 SEE RESULT BELOW Name: ONEIDA COREY : [address]: Haylee Cordero MD Acct: [id number] Unit: [id number] AGE: 51 Location: [facility] Re10/19/16 SEX: F Status: REG REF SPEC: [id number] LATASHA: 10/19/1635 [facility] DR: Haylee Cordero MD REQ: [id number] RECD: 10/19/16 STATUS: COMP _ SOURCE: VAGINAL SPDESC: ORDERED: NevaehYeast DNA COMMENTS: [id number] Procedure Result Reported Site Gardnerella/Yeast: Vaginal DNA Final 10/20/16- 0950 ML Organism 1 POSITIVE GARDNERELLA Organism 2 Negative Rocío The presence of G. vaginalis, although suggestive, is not diagnostic for bacterial vaginosis. Results should be interpreted in conjuction with other clinical and laboratory data available. Women with vaginal discharge should be evaluated for risk factors of cervicitis and pelvic inflammatory disease, toxic shock syndrome (S.aureus), and if present, evaluated for organisms not included in this assay such as N. gonorrhoeae, C. trachomatis, Mobiluncus, Mycoplasma and/or Prevotella. Mixed infections may occur. The performance of this test on patient specimens collected during or immediately after antimicrobial therapy is unknown. The presence or absence of Rocío species, or G. vaginalis cannot be used as a test for therapeutic success or failure. * ML - MAIN LAB ([facility]) . END OF REPORT * ML=Testing performed at Main Lab DEPARTMENT OF PATHOLOGY, [address] [place] [address] Silvestre Collier M.D. Director [facility] # [id number] 19 [id number] GC/Chlamydia Source?: Endocervical Trichomonas Source: Endocervical 20 Would you like to order Trichomonas Vaginalis RNA testing? N 21 SEE RESULT BELOW Name: ONEIDA COREY : [address]: Brigido Noe DO Acct: [id number] Unit: [id number] AGE: 51 Location: ED Re08/18/16 SEX: F Status: DEP ER SPEC: [id number] LATASHA: 08/18/16-[address]: Tressa SANTIAGO REQ: [id number] RECD: 08/18/16 STATUS: ISACC WATTERS DR: Brigido Hurst MD _ SOURCE: VAGINAL SPDESC: ORDERED: Nevaeh,Yeast DNA COMMENTS: Would you like to order Trichomonas Vaginalis RNA testing? N Procedure Result Reported Site Gardnerella/Yeast: Vaginal DNA Final 08/19/16- 1118 ML Organism 1 POSITIVE GARDNERELLA Organism 2 Negative Rocío The presence of G. vaginalis, although suggestive, is not diagnostic for bacterial vaginosis. Results should be interpreted in conjuction with other clinical and laboratory data available. Women with vaginal discharge should be evaluated for risk factors of cervicitis and pelvic inflammatory disease, toxic shock syndrome (S.aureus), and if present, evaluated for organisms not included in this assay such as N. gonorrhoeae, C. trachomatis, Mobiluncus, Mycoplasma and/or Prevotella. Mixed infections may occur. The performance of this test on patient specimens collected during or immediately after antimicrobial therapy is unknown. The presence or absence of Rocío species, or G. vaginalis cannot be used as a test for therapeutic success or failure. * ML - MAIN LAB ([facility]) . END OF REPORT * ML=Testing performed at Main Lab DEPARTMENT OF PATHOLOGY, [address] [place] [address] Silvestre Collier M.D. Director [facility] # [id number] 22 [facility] Severe Sepsis and Septic Shock Management Bundle Measure requires all lactic acids initially measuring >2.0 mmol/L be repeated. 23 Because ethnic data is not always readily available, this report includes an eGFR for both -Americans and non- Americans. The National Kidney Disease Education Program (NKDEP) does not endorse the use of the MDRD equation for patients that are not between the ages of 18 and 70, are , have extremes of body size, muscle mass, or nutritional status, or are non- or non-. According to the National Kidney Foundation, irrespective of diagnosis, the stage of the disease is based on the level of kidney function: Stage Description GFR(mL/min/1.73 m(2)) 1 Kidney damage with normal or decreased GFR 90 2 Kidney damage with mild decrease in GFR 60-89 3 Moderate decrease in GFR 30-59 4 Severe decrease in GFR 15-29 5 Kidney failure <15 (or dialysis) 24 Acute inflammation: >10.00 25 [facility] Severe Sepsis and Septic Shock Management Bundle Measure requires all lactic acids initially measuring >2.0 mmol/L be repeated. 26 <5.0 Negative 5.0 - 25.0 Indeterminate (Repeat testing recommended after 72 hours) >25.0 Positive Perimenopausal women can display HCG levels of up to 20 mIU/mL 27 Because ethnic data is not always readily available, this report includes an eGFR for both -Americans and non- Americans. The National Kidney Disease Education Program (NKDEP) does not endorse the use of the MDRD equation for patients that are not between the ages of 18 and 70, are , have extremes of body size, muscle mass, or nutritional status, or are non- or non-. According to the National Kidney Foundation, irrespective of diagnosis, the stage of the disease is based on the level of kidney function: Stage Description GFR(mL/min/1.73 m(2)) 1 Kidney damage with normal or decreased GFR 90 2 Kidney damage with mild decrease in GFR 60-89 3 Moderate decrease in GFR 30-59 4 Severe decrease in GFR 15-29 5 Kidney failure <15 (or dialysis) 28 Acute inflammation: >10.00 29 *Ascorbic acid is present which may interfere with detection of blood. 30 SEE RESULT BELOW Name: MADHAV,ONEIDA : [address]: Robert Sánchez MD Acct: [id number] Unit: [id number] AGE: 50 Location: ED Re06/04/16 SEX: F Status: DEP ER SPEC: [id number] LATASHA: 06/04/[address]: Robert Sánchez MD REQ: [id number] RECD: 06/04/16 STATUS: ISACC STEVE DR: Haylee Cordero MD _ SOURCE: VAGINAL SPDESC: ORDERED: Nevaeh,Yeast DNA Procedure Result Reported Site Gardnerella/Yeast: Vaginal DNA Final 06/05/16- 1322 ML Organism 1 POSITIVE GARDNERELLA Organism 2 Negative Rocío The presence of G. vaginalis, although suggestive, is not diagnostic for bacterial vaginosis. Results should be interpreted in conjuction with other clinical and laboratory data available. Women with vaginal discharge should be evaluated for risk factors of cervicitis and pelvic inflammatory disease, toxic shock syndrome (S.aureus), and if present, evaluated for organisms not included in this assay such as N. gonorrhoeae, C. trachomatis, Mobiluncus, Mycoplasma and/or Prevotella. Mixed infections may occur. The performance of this test on patient specimens collected during or immediately after antimicrobial therapy is unknown. The presence or absence of Rocío species, or G. vaginalis cannot be used as a test for therapeutic success or failure. * ML - [facility] ([facility]) . END OF REPORT * ML=Testing performed at Main Lab DEPARTMENT OF PATHOLOGY, [address] [place] [address] Silvestre Collier M.D. Director [facility] # [id number] 31 GC/Chlamydia Source?: Endocervical Trichomonas Source: Endocervical 32 SEE RESULT BELOW Name: ONEIDA COREY : [address]: Robert Sánchez MD Acct: [id number] Unit: [id number] AGE: 50 Location: ED Re06/04/16 SEX: F Status: DEP ER SPEC: [id number] LATASHA: 06/04/16 [facility] DR: Robert Sánchez MD REQ: [id number] RECD: 06/04/16 STATUS: ISACC WATTERS DR: Haylee Cordero MD _ SOURCE: URINE [facility]: ORDERED: Urine Culture Procedure Result Reported Site Urine Culture Final 06/08/16- 817 ML Organism 1 PROTEUS MIRABILIS [place] Count >100,000 (Many) CFU/ML Organism 2 NORMAL FERCHO [place] Count 1-10,000 (Few) CFU/ML 1. PROTEUS MIRABILIS M.I.C. RX --------- ------ Ampicillin >=32 R Cefazolin R Cefepime S Ceftriaxone S Ciprofloxacin <=0.25 S Gentamicin <=1 S Levofloxacin <=0.12 S Meropenem R Nitrofurantoin 128 R Tetracycline >=16 R Pipercillin/Tazobactam R Trimethoprim/Sulfamethoxazole <=20 S Aztreonam S Contact the Microbiology Department for any additional antibiotic reporting. * ML - MAIN LAB ([facility]) . END OF REPORT * ML=Testing performed at Main Lab DEPARTMENT OF PATHOLOGY, [address] [place] [address] Silvestre Collier M.D. Director [facility] # [id number] 33 FASTING 10 HOUR 34 Because ethnic data is not always readily available, this report includes an eGFR for both -Americans and non- Americans. The National Kidney Disease Education Program (NKDEP) does not endorse the use of the MDRD equation for patients that are not between the ages of 18 and 70, are , have extremes of body size, muscle mass, or nutritional status, or are non- or non-. According to the National Kidney Foundation, irrespective of diagnosis, the stage of the disease is based on the level of kidney function: Stage Description GFR(mL/min/1.73 m(2)) 1 Kidney damage with normal or decreased GFR 90 2 Kidney damage with mild decrease in GFR 60-89 3 Moderate decrease in GFR 30-59 4 Severe decrease in GFR 15-29 5 Kidney failure <15 (or dialysis) 35 FASTING 10 HOUR 36 Desirable <150 Borderline high 150-199 High 200-499 Very High >500 37 Desirable <200 Borderline high 200-239 High >239 38 Low <40 Desirable: 40-60 High: >60 39 Desirable: <100 mg/dL Near Optimal: 100-129 mg/dL Borderline High: 130-159 mg/dL High: 160-189 mg/dL Very High: >189 mg/dL 40 Because ethnic data is not always readily available, this report includes an eGFR for both -Americans and non- Americans. The National Kidney Disease Education Program (NKDEP) does not endorse the use of the MDRD equation for patients that are not between the ages of 18 and 70, are , have extremes of body size, muscle mass, or nutritional status, or are non- or non-. According to the National Kidney Foundation, irrespective of diagnosis, the stage of the disease is based on the level of kidney function: Stage Description GFR(mL/min/1.73 m(2)) 1 Kidney damage with normal or decreased GFR 90 2 Kidney damage with mild decrease in GFR 60-89 3 Moderate decrease in GFR 30-59 4 Severe decrease in GFR 15-29 5 Kidney failure <15 (or dialysis) 41 Because ethnic data is not always readily available, this report includes an eGFR for both -Americans and non- Americans. The National Kidney Disease Education Program (NKDEP) does not endorse the use of the MDRD equation for patients that are not between the ages of 18 and 70, are , have extremes of body size, muscle mass, or nutritional status, or are non- or non-. According to the National Kidney Foundation, irrespective of diagnosis, the stage of the disease is based on the level of kidney function: Stage Description GFR(mL/min/1.73 m(2)) 1 Kidney damage with normal or decreased GFR 90 2 Kidney damage with mild decrease in GFR 60-89 3 Moderate decrease in GFR 30-59 4 Severe decrease in GFR 15-29 5 Kidney failure <15 (or dialysis) 42 <5.0 Negative 5.0 - 25.0 Indeterminate (Repeat testing recommended after 72 hours) >25.0 Positive Perimenopausal women can display HCG levels of up to 20 mIU/mL 43 Because ethnic data is not always readily available, this report includes an eGFR for both -Americans and non- Americans. The National Kidney Disease Education Program (NKDEP) does not endorse the use of the MDRD equation for patients that are not between the ages of 18 and 70, are , have extremes of body size, muscle mass, or nutritional status, or are non- or non-. According to the National Kidney Foundation, irrespective of diagnosis, the stage of the disease is based on the level of kidney function: Stage Description GFR(mL/min/1.73 m(2)) 1 Kidney damage with normal or decreased GFR 90 2 Kidney damage with mild decrease in GFR 60-89 3 Moderate decrease in GFR 30-59 4 Severe decrease in GFR 15-29 5 Kidney failure <15 (or dialysis) 44 Therapeutic target for the treatment of diabetes Mellitus patients is <7% HBA1C, and in selective patients <6.0%.Please refer to [place] [employer] Diabetic care guidelines for further information. 45 FASTING 12 HOUR 46 Desirable <150 Borderline high 150-199 High 200-499 Very High >500 47 Desirable <200 Borderline high 200-239 High >239 48 Low <40 Desirable: 40-60 High: >60 49 Desirable <100 Near Optimal 100-129 Borderline high 130-159 High 160-189 Very High >189 50 Because ethnic data is not always readily available, this report includes an eGFR for both -Americans and non- Americans. The National Kidney Disease Education Program (NKDEP) does not endorse the use of the MDRD equation for patients that are not between the ages of 18 and 70, are , have extremes of body size, muscle mass, or nutritional status, or are non- or non-. According to the National Kidney Foundation, irrespective of diagnosis, the stage of the disease is based on the level of kidney function: Stage Description GFR(mL/min/1.73 m(2)) 1 Kidney damage with normal or decreased GFR 90 2 Kidney damage with mild decrease in GFR 60-89 3 Moderate decrease in GFR 30-59 4 Severe decrease in GFR 15-29 5 Kidney failure <15 (or dialysis) 51 FASTING 10 HOUR 52 HDL Interpretation: Undesirable: High Risk: Less than 40 MG/DL Desirable: Low Risk: Greater than 60 MG/DL 53 LDL Interpretation: Low Risk Optimal Level: LDL Less than 100 MG/DL Near or Above Optimal: LDL 100-129 MG/DL Borderline High Risk: LDL 130-159 MG/DL High Risk: LDL 160-189 MG/DL Very High Risk: LDL Greater than 189 MG/DL 54 Because ethnic data is not always readily available, this report includes an eGFR for both -Americans and non- Americans. The National Kidney Disease Education Program (NKDEP) does not endorse the use of the MDRD equation for patients that are not between the ages of 18 and 70, are , have extremes of body size, muscle mass, or nutritional status, or are non- or non-. According to the National Kidney Foundation, irrespective of diagnosis, the stage of the disease is based on the level of kidney function: Stage Description GFR(mL/min/1.73 m(2)) 1 Kidney damage with normal or decreased GFR 90 2 Kidney damage with mild decrease in GFR 60-89 3 Moderate decrease in GFR 30-59 4 Severe decrease in GFR 15-29 5 Kidney failure <15 (or dialysis) 55 RUN DATE: 08/31/12 [facility] LAB LIVE PAGE 1 RUN TIME: [address] [place] [address] Specimen Inquiry Name: ONEIDA COREY : [address]: Haylee Cordero MD Acct: [id number] Unit: [id number] AGE: 47 Location: [facility] Re08/27/12 SEX: F Status: REG REF SPEC: [id number] LATASHA: 08/27/12-[address]: Haylee Cordero MD REQ: [id number] RECD: 08/27/12 STATUS: SOUT _ ORDERED: IMAGE ANALYSIS, HPV / Thin Prep HiRisk Human Papilloma Virus test results received with preparation and diagnosis completed by [facility], [place], [place]. Results: NEGATIVE High Risk (for types 16, 18, 31, 33, 35, 39, 45, 51, 52, 56, 58, 59, 68) DiGene Hybrid Capture Specimen Transport Media or Cytyc ThinPrep PapTest PreservCyt Solution are the collection systems approved for use with this method by the U.S. Food and Drug Administration. Performance characteristics for AutoCyte (SurPath) collection device have been determined by Laboratory Medicine and Pathology , [facility], [place], [place]. It has not been cleared or approved by the U.S. Food and Drug Administration. Test Performed by: [facility] Dpt of lab Med and Pathology [address] [place] [address] Body Fitter: Tu Benavidez III, M.D. Original hard copy report from [facility] is available upon request by calling Pathology at [phone]. Addendum Signed (signature on file) BRYCE Mullen (ASCP) 08/31/12918 FINAL DIAGNOSIS Negative for Intraepithelial lesion or Malignancy COMMENTS: Specimen sent to [facility] in [place], [place] on 08/28/12. Results will be reported separately in an Addendum. A. Ectocervical/Endocervical Specimen Adequacy: CONTINUED ON NEXT PAGE * ML=Testing performed at Main Lab DEPARTMENT OF PATHOLOGY, [facility] [employer] [place], [place] [address] Silvestre Collier M.D. Director [facility] Permit #[id number] RUN DATE: 08/31/12 [facility] LAB LIVE PAGE 2 RUN TIME: 918 [facility] [place] [place], [place] [address] Specimen Inquiry Patient: ONEIDA COREY [id number] (Continued) CYTOLOGY ADEQ (Continued) Satisfactory of evaluation Transformation zone component identified Patient Information: HPV: High risk HPV DNA testing regardless of pap results. Actual Specimen Date: 08/27/12 Last Menstrual Date: 08/22/12 IUD: N Lesion, grossly demonstrate: N Previous Abnormal Pap Smears?:Y If Yes, enter Diagnosis: Atypical Squamous cells of uncertain significance. Signed (signature on file) BRYCE Mullen (ASCP) 08/28/12 1221 This Pap test was evaluated with the assistance of the PharmRight CorpPrep Test Imaging System. Due to cytologic findings at the second operator microscope, comprehensive manual rescreening by a Professional Bondsman may be required. The Pap Smear is a screening test designed to aid in the detection of premalignant and malignant conditions of the uterine cervix. It is not a diagnostic procedure and should not be used as the sole means of detecting cervical cancer. Both false- positive and false- negative reports do occur. Depending on your risk status, a Pap smear shoudl be obtained and evaluated every 1-3 years. END OF REPORT * ML=Testing performed at Main Lab DEPARTMENT OF PATHOLOGY, [facility] [employer] [place] [id number] Silvestre Collier M.D. Director [facility] Permit #[id number] 56 For types 16, 18, 31, 33, 35, 39, 45, 51, 52, 56, 58, 59 and 68. Test Performed by: [address] [address] Body Fitter: Tu Benavidez III, M.D. 57 RUN DATE: 04/18/12 [facility] LAB LIVE PAGE 1 RUN TIME: 115[address] [place] [address] Specimen Inquiry Name: ONEIDA COREY : [address]: Haylee Cordero MD Acct: [id number] Unit: [id number] AGE: 46 Location: [facility] Re04/17/12 SEX: F Status: REG REF SPEC: [id number] LATASHA: 04/17/12-[address]: Haylee Cordero MD REQ: [id number] RECD: 04/17/12 STATUS: COMP _ SOURCE: VAGINAL SPDESC: ORDERED: Affirm QUERIES: Medent Number [id number] Procedure Result Verified Site Affirm Vaginal DNA Probe Final 04/18/12- 1154 ML Trichomonas Negative Gardnerella Negative Rocío Negative The presence of G. vaginalis, although suggestive, is not diagnostic for bacterial vaginosis. Results should be interpreted in conjunction with other clinical and laboratory data available. Women with vaginal discharge should be evaluated for risk factors of cervicitis and pelvic inflammatory disease, toxic shock syndrome (S.aureus), and if present, evaluated for organisms not included in this assay such as N. gonorrhoeae, C. trachomatis, Mobiluncus, Mycoplasma and/or Prevotella. Mixed infections may occur. The performance of this test on patient specimens collected during or immediately after antimicrobial therapy is unknown. The presence or absence of Rocío species, G. vaginalis or T. vaginalis cannot be used as a test for therapeutic success or failure. END OF REPORT * ML=Testing performed at Main Lab DEPARTMENT OF PATHOLOGY, [address] [place] [address] Silvestre Collier M.D. Director [facility] Permit #[id number] 58 Test Performed by: [place] [address] Body Fitter: Tu Benavidez III, M.D. 59 CHOLESTEROL INTERPRETATION: Desirable: Less than 200 MG/DL Borderline-High Risk: 200-239 MG/DL High-Risk: 240 MG/DL and over 60 HDL INTERPRETATION: Undesirable: High Risk: Less than 40 MG/DL Desirable: Low Risk: Greater than 60 MG/DL 61 LDL INTERPRETATION: Low Risk Optimal Level: LDL Less than 100 MG/DL Near or Above Optimal: LDL 100-129 MG/DL Borderline High Risk: LDL 130-159 MG/DL High Risk: LDL 160-189 MG/DL Very High Risk: LDL Greater than 189 MG/DL 62 -- REFERENCE VALUE -- No abnormal variants 63 Normal hemoglobin electrophoresis evaluation. No evidence of abnormal hemoglobin or beta thalassemia. Test Performed by: [place] [address] Body Fitter: Tu Benavidez III, M.D. 64 Negative in normal Individuals. May be negative in dermatitis herpatiformis or celiac disease patients adhering to a gluten free diet. Laboratory developed test. Test Performed by: [place] [address] Body Fitter: Tu Benavidez III, M.D. 65 -- REFERENCE VALUE -- <20.0 (Negative) Test Performed by: [place] [address] Body Fitter: Tu Benavidez III, M.D. 66 -- REFERENCE VALUE -- <20.0 (Negative) Test Performed by: [place] [address] Body Fitter: Tu Benavidez III, M.D. 67 Test Performed by: [place] [address] Body Fitter: Tu Benavidez III, M.D. 68 ---- RUN DATE: 01/06/12 [facility] NMI LIVE PAGE 1 RUN TIME: 838 Specimen Inquiry RUN USER: INTERFACE -- Name: ONEIDA COREY#: [id number] Status: REG REF Re01/02/12 Age/Sex: 46/F Unit#: [id number] Location: [facility]. : [birth year] -- Specimen: [id number] SOUT Spec Date:01/02/12-[address]: Haylee mclaughlin MD Spec Type: CYTOLOGY Received:01/03/12-1216 Copies to: SOURCE ECTOCERVICAL/ENDOCERVICAL Thin Prep with Reflex HPV Test PATIENT INFORMATION ACTUAL COLLECTION DATE: 01/02/12 PREVIOUS ABNORMAL PAP SMEARS Yes If YES, diagnosis: LEEP 1993, normal since LAST MENSTRUAL PERIOD: 12/21/11 ADEQUACY OF SPECIMEN Satisfactory for evaluation * Transformation zone component identified * DIAGNOSIS EPITHELIAL CELL ABNORMALITIES * Squamous cell * Atypical squamous cells * Of undetermined significance (ASC-US) * NOTE Specimen sent to [facility] in [place], [place] on 01/03/12 by DB at 1409. Results will be reported separately in an addendum. Less than 8 mls of fluid left in vial, sample will most likely be quantity not sufficient for HPV testing. ADDENDUM Addendum #1 Entered: 01/06/12 HPV DNA High Risk Test Cancelled. Quantity not sufficient. This test was developed and its performance characteristics determined by Laboratory Medicine and Pathology, [place] -- DEPARTMENT OF PATHOLOGY, [address] [place] [address] [facility] Permit #[id number] Shanta Rubalcava M.D. Metal Finish Inspector Dir jo -- -- RUN DATE: 01/06/12 [facility] NMI LIVE PAGE 2 RUN TIME: 838 Specimen Inquiry RUN USER: INTERFACE -- Name: ONEIDA COREY#: [id number] Status: REG REF Re01/02/12 Age/Sex: 46/F Unit#: [id number] [facility] -- -- CONTINUED -- ADDENDUM ([place], [place]. It has not been cleared or approved by the U.S. Food and Drug Administration. Test Performed by: [facility] Dpt of lab Med and Pathology [address] [place] [address] Body Fitter: Tu Benavidez III, M.D. Original hard copy report from [facility] [employer] is available upon request by calling Pathology at [phone]. Addendum Review Juan Ramon CORRALES([facility]) 01/06/12 -- This Pap test was evaluated with the assistance of the ThinPrep Pap Test Imaging System. Due to cytologic findings at the second operator microscope, comprehensive manual rescreening by a Professional Bondsman was required. The Pap Smear is a screening test designed to aid in the detection of premalign ant and malignant conditions of the uterine cervix. It is not a diagnostic procedure a nd should not be used as the sole means of detecting cervical cancer. Both false- positiv e and false-negative reports do occur. Depending on your risk status, a Pap smear reina uld be obtained and evaluated every one to three years. Initial evaluation performed by Juan Ramon CORRALES(ASCP) 01/03/12 Final Interpretation electronically signed by: ANDREAS LUQUE 01/03/12 1442 -- -- DEPARTMENT OF PATHOLOGY, [address] [place] [address] [facility] Permit #[id number] Silvestre Collier M.D. Director Andreas Luque M.D. Metal Finish Inspector Dir jo -- 69 Please note: New reference range, effective 05/19/11 NORMAL REFERENCE RANGE: GREATER THAN 4.1 NG/ML 70 Anion gap measurement may be of limited value in the presence of any alkalosis, especially in a combined acid base disorder. . 71 A metabolite of Naproxen, O-desmethylnaproxen, has been shown to interfere with the Jendrassik-Miriam method for measuring total bilirubin. Samples from patients who have taken Naproxen have shown spurious elevation in total bilirubin levels. 72 Because ethnic data is not always readily available, this report includes an eGFR for both -Americans and non- Americans. The National Kidney Disease Education Program (NKDEP) does not endorse the use of the MDRD equation for patients that are not between the ages of 18 and 70, are , have extremes of body size, muscle mass, or nutritional status, or are non- or non-. According to the National Kidney Foundation, irrespective of diagnosis, the stage of the disease is based on the level of kidney function: Stage Description GFR(mL/min/1.73 m(2)) 1 Kidney damage with normal or decreased GFR 90 2 Kidney damage with mild decrease in GFR 60-89 3 Moderate decrease in GFR 30-59 4 Severe decrease in GFR 15-29 5 Kidney failure <15 (or dialysis) 73 Please note: New reference range, effective 05/19/11 NORMAL REFERENCE RANGE: GREATER THAN 4.1 NG/ML 74 Anion gap measurement may be of limited value in the presence of any alkalosis, especially in a combined acid base disorder. . 75 A metabolite of Naproxen, O-desmethylnaproxen, has been shown to interfere with the Jendrassik-Stem method for measuring total bilirubin. Samples from patients who have taken Naproxen have shown spurious elevation in total bilirubin levels. 76 Because ethnic data is not always readily available, this report includes an eGFR for both -Americans and non- Americans. The National Kidney Disease Education Program (NKDEP) does not endorse the use of the MDRD equation for patients that are not between the ages of 18 and 70, are , have extremes of body size, muscle mass, or nutritional status, or are non- or non-. According to the National Kidney Foundation, irrespective of diagnosis, the stage of the disease is based on the level of kidney function: Stage Description GFR(mL/min/1.73 m(2)) 1 Kidney damage with normal or decreased GFR 90 2 Kidney damage with mild decrease in GFR 60-89 3 Moderate decrease in GFR 30-59 4 Severe decrease in GFR 15-29 5 Kidney failure <15 (or dialysis) 77 *LEVELS AT THE LOWER END OF THE RANGE MAY BE NEEDED FOR SYMPTOMATIC HEART FAILURE AND LEVELS AT THE HIGHER END OF THE RANGE FOR RATE CONTROL.* Procedures Date CPT Code Description Status 09/15/2017 89012 EKG Tracing & Interpretation Completed 08/28/2017 Mammogram Completed 08/17/2017 Mammogram Completed 08/11/2017 15400 Moderate Sedation Services; Same Phys Each Additional Completed 15 Mins 08/11/2017 20075 Moderate Sedation Services; Same Phys Intl 15 Mins; PT Completed >=5 Years 08/11/2017 81732 Ultrasound Guidance For Vascular Access Completed 08/11/2017 88229 Vascular Embolization Or Occlu Tumor Organ Ischemia Or Completed Infarction 08/11/2017 46363 Catheter Placement Arterial System Init 3RD Order Completed Abdom/Pelv/Low 08/11/2017 34538 Common Femoral, Bilat Completed 07/13/2017 Mammogram Completed 03/16/2017 Colonoscopy Completed 01/13/2017 17766 EKG Tracing & Interpretation Completed 06/08/2016 13586 ECHO Transthoracic, Real-Time 2D With Doppler And Color Completed Flow 06/07/2016 93822 EKG Tracing & Interpretation Completed 05/20/2016 Mammogram Completed 10/01/2015 65939 Holter Monitor Review (24 hr)dr dobson & rohini Completed only 09/30/2015 71212 ECG Monitor/Recording W/Visual Superimposition Scanning Completed 09/25/2015 63128 EKG Tracing & Interpretation Completed 09/23/2015 66864 ECHO Transthoracic, Real-Time 2D With Doppler And Color Completed Flow 05/07/2015 Mammogram Completed 11/20/2014 77659 ECG Monitor/Recording W/Visual Superimposition Scanning Completed 11/20/2014 90218 Holter Monitor Review (24 hr)dr dobson & rohini Completed only 11/17/2014 43145 Holter Monitor Review (24 hr)dr dobson & rohini Completed only 11/17/2014 44908 ECG Monitor/Recording W/Visual Superimposition Scanning Completed 11/07/2014 77908 ECHO Transthoracic, Real-Time 2D With Doppler And Color Completed Flow 10/24/2014 36290 EKG Tracing & Interpretation Completed 02/21/2014 99862 ECHO Transthoracic, Real-Time 2D With Doppler And Color Completed Flow 02/07/2014 91911 EKG Tracing & Interpretation Completed 01/23/2013 Mammogram Completed 01/27/2012 68367 ECHO Transthoracic, Real-Time 2D With Doppler And Color Completed Flow 01/06/2012 Mammogram Completed 09/28/2011 87587 EKG Tracing & Interpretation Completed Encounters Type Date Location Provider CPT E/M Dx Office Visit 09/04/2017 [facility] [place] [address] C50.912 3:15p [facility] Office Visit 08/12/2017 [facility] Vascular Medicine Osiel Augustine, 26085 D25.9 3:19p Of Jacinto Womack Office Visit 08/12/2017 [facility] Darcy Wetzel, 42653 D25.9 9:07a rena Vargas M.D. I42.5 I10 R00.0 Office Visit 08/11/2017 9:06a [facility] ,rena Tolbert 36526 D25.9 Hospitalists GRICELDA Boyd I42.5 I10 R00.1 Office Visit 04/10/2017 2:30p [facility] Maite Salecdo, 80971 M79.672 [facility] At [facility] , FACC, FSCAI Office Visit 03/03/2017 2:30p [facility], 40683 M76.821 C.MSelinaASelina Womack Office Visit 01/31/2017 8:45a [facility], 45982 M76.821 C.MCarrie Womack Office Visit 01/31/2017 2:40p [facility] Internal Medicine Haylee Cordero, 25224 N71.1 - Keila Wmoack E78.4 R11.0 R35.0 I10 Office Visit 01/13/2017 1:30p [facility] JACK Fult[place] 35609 G47.00 I42.9 R94.31 I10 Office Visit 10/19/2016 8:30a [facility] Internal Medicine Haylee Cordero M.D. 15233 R30.0 - [place] N89.8 Z11.4 Office Visit 09/14/2016 1:30p [facility] Vascular Medicine Osiel Augustine, 54346 D25.9 Of [facility] M.DSelina Office Visit 08/30/2016 2:40p [facility] Internal Medicine Haylee Cordero M.D. 79588 D25.9 - [place] I10 Z12.11 Office Visit 07/27/2016 2:30p [facility] Internal Medicine - YOMAIRA Singh [address] F41.9 Z13.220 I42.9 Office Visit 06/07/2016 3:00p [facility] Kesha Alfaro, 67513 I42.9 M.DSelina I10 I34.0 R94.31 Office Visit 05/03/2016 9:50a [facility] Internal Medicine - Haylee Cordero M.D. 70448 [address] [place] F41.9 D64.9 Z23 Office Visit 01/27/2016 1:40p [facility] [place] [address] Z12.31 I42.9 I10 L30.9 F43.0 J30.9 L70.0 Office Visit 01/25/2016 4:00p [facility] Internal Medicine Jamal Palacios, 90872 K57.92 - [address] M.D. Office Visit 11/02/2015 3:30p [facility] JACK [place]ult[place] 17418 I49.3 I42.9 I10 Office Visit 10/02/2015 2:30p [facility], 15032 Q66.51 C.MCarrie Womack L84 Office Visit 09/25/2015 2:20p [facility] Kesha Alfaro, 08971 I42.9 M.DSelina I10 I49.3 Office Visit 07/06/2015 4:00p [facility] Internal Medicine Robert Baez, 78576 J06.9 - Florentino Womack Office Visit 05/05/2015 3:00p [facility], 37379 Q66.51 C.MCarrie Womack M65.871 Office Visit 04/15/2015 10:30a [facility] Internal Medicine Haylee Cordero, 59478 Z00.01 - Florentino Womack L84 Q66.51 N92.0 Z12.31 Z23 J30.9 Office Visit 03/17/2015 11:10a [facility] Internal Medicine Haylee Cordero, 23707 R10.30 - Florentino Womack J01.90 R73.01 Office Visit 02/23/2015 11:50a [facility] Internal Medicine Haylee Cordero M.D. 37729 K64.9 - Florentino K59.09 I10 D50.9 K64.0 Office Visit 02/12/2015 2:30p [facility] JACK Fulton 70005 425.9 401.9 272.4 425.4 Office Visit 11/27/2014 9:30a [facility] JACK [place]ult[place] 86499 785.0 425.9 401.9 272.2 674.81 Office Visit 10/24/2014 10:20a [facility] Kesha Alfaro, 93063 425.9 MSelinaDSelina 401.9 272.2 424.0 785.0 785.1 Office Visit 07/29/2014 2:50p [facility] Internal Medicine Haylee Cordero 71594 300.00 - Florentino Womack 795.51 V70.3 Office Visit 03/12/2014 3:30p [facility] JACK Fulton 61761 281.9 425.9 401.9 Office Visit 02/07/2014 3:00p [facility] Marybeltaybchevy Alfaro, 12093 272.2 M.DSelina 401.9 425.9 Office Visit 12/26/2013 1:10p [facility] Internal Medicine Haylee Cordero M.D. 78430 V70.0 - [place] 700 V76.10 272.2 281.9 Office Visit 11/26/2013 3:10p [facility] Internal Medicine Haylee Cordero M.D. 21981 724.2 - [place] 401.9 Office Visit 01/16/2013 10:30a [facility] Internal Medicine Haylee Cordero M.D. 52469 128.9 - [place] V76.10 Office Visit 10/04/2012 2:20p [facility] Amira Turner, 99252 401.9 [facility] D.OSelina 674.81 272.4 285.9 Office Visit 09/26/2012 4:10p [facility] Internal Medicine Haylee Cordero M.D. 09002 281.9 - [place] 272.4 Office Visit 08/27/2012 10:50a [facility] Internal Medicine Haylee Cordero M.D. 29212 285.9 - [place] 401.9 795.01 674.81 Office Visit 04/17/2012 9:50a [facility] Internal Medicine Haylee Cordero M.D. 41351 623.5 - [place] 285.9 401.9 795.01 V04.81 Office Visit 03/12/2012 10:20a [facility] Amira Turner D.O. 89352 674.81 401.9 Office Visit 01/25/2012 9:50a [facility] Internal Medicine Haylee Cordero M.D. 77393 285.9 - [place] 401.9 309.89 795.01 Office Visit 01/02/2012 11:30a [facility] Internal Medicine Haylee Cordero 37680 V72.31 - Florentino Womack V76.2 V77.91 V76.19 V15.06 285.9 V06.1 Office Visit 11/28/2011 2:30p [facility] Internal Medicine Haylee Cordero M.D. 63123 281.9 - [place] 401.9 425.9 Office Visit 11/18/2011 11:40a [facility] Internal Medicine Roya French M.D. 57692 281.9 - [place] 780.4 564.09 Office Visit 11/09/2011 9:40a [facility] Amira Turner D.O. 91201 401.1 281.9 564.09 674.81 Office Visit 09/28/2011 9:40a [facility] Amira Turner D.O. 61813 425.9 401.1 281.9 Office Visit 09/12/2011 10:45a [facility] Internal Medicine Haylee Cordero 54206 564.09 - Florentino Womack 465.9 Office Visit 09/05/2011 11:30a [facility] Internal Medicine Haylee Cordero, 36300 674.81 - Florentino Womack Office Visit 08/15/2011 10:30a [facility] Internal Medicine Haylee Cordero, 38942 281.9 - Florentino Womack 674.81 555.9 Office Visit 07/07/2011 10:00a [facility] Internal Medicine Haylee Cordero, 17484 648.62 - Florentino Womack 706.1 300.00 623.5 281.9 Plan of Care Future Appointment(s):10/04/2017 3:00 pm - Ica ECHO Schedule at [facility]09/29/2017 1:00 pm - Myla Santana NP at [facility]09/29/2017 1:00 pm - Jackie Bragg MD at [facility]09/25/2017 - Britt Fitch, N.P.B37.3 Candidiasis of vulva and vaginaNew Medication:Fluconazole 150 mgComments:For your vaginal yeast infection : I sent in a prescription for an oral medication, Fluconazole. Takeone tablet. This stays in your system for 3 days. If your symptoms do not start to resolve you may repeat the dose.If your symptoms do no improve, please give the office a call.A60.04 Herpesviral vulvovaginitisNew Medication:Valtrex 500 mgComments:I have prescribed Valtrex for you. Take 1 tablet, twice daily for 5 days. I gave you refills in caseyou need it.
--- OUTSIDE RECORDS SUMMARY | 2017-10-05 11:39 | XMS REPORT ---
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 Cigarette Use Never Smoked Cigarettes ETOH Use Never used alcohol Smoking Patient has never smoked Recreational Drug Use Never Used Drugs Daily Caffeine Does Not Consume Caffeine Exercise Type/Frequency Exercises regularly walking, 20-30 minutes 2-3 times weekly Currently Active Patient is currently not by choice since 2007 sexually active 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 Besylate 16 mouth Sasha, every day M.D. I42.9 Fluticasone [...] 1 I42.9 Qutaybeh tablet S. by mouth Maghaydah, twice a M.D. day I10 Biotin Maximum Active Capsules 5000mcg 1 po qd (OTC) Unknown Strength Doxycycline 01/23/2017 - Hx Tablets 100mg 28 [...] Hubert Acetonide 05/03/2016 ml topically twice 0. 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 rené Alfaro M.D. Mebendazole 01/16/2013 - Hx Chewtabs [...] Lotion 0.75% 1u apply bid Haylee 08/27/2012 david Smith M.D. Metamucil 09/12/2011 - Hx Powder 48.57% [...] bid as needed 6. david Cordero 1 M.DSelina Lisinopril - Hx Tablets 20mg 30 1 [...] Tablets 20mg 30 take 1 tablet by Qutaybeh 11/27/2014 ta mouth once daily S. rené Alfaro M.D. Zithromax - Hx Tablets 500mg one by mouth one Unknown 07/27/2016 per day Macrobid - Hx Capsules 100mg 1 tab by mouth Unknown 07/27/2016 twice a day x 7 days Biotin - Hx Capsules 1mg take one Unknown 08/29/2016 capsule/tablet daily by mouth Immunizations CPT Code Status Date Vaccine Lot # [id number] Given 05/03/2016 Influenza Virus Vaccine, Quadrivalent, Split [id number] Virus, [place] Use [address] Given 04/15/2015 Influenza Virus Vaccine, Quadrivalent, Split, [id number] Preservative Free [id number] Given 04/17/2012 Fluvirin Im 3Yrs And Older [id number] 88210 Given 01/02/2012 Tdap - Tetanus/Diptheria/Acellular Pertussis [id number] Vital Signs Date Vital Result Comment 09/18/2017 Height 70 inches 5'10" Weight 177.00 [...] Profile 08/14/2017 Urine Appearance Cloudy Urine Specific Bivins 1.009 Low 1.010-1.030 Urine pH 7.0 5-9 [...] >60 10 Ua Routine 01/31/2017 Ua Specific Bivins 1.015 Ua PH 5 Ua Color light [...] 17, 19 Ua Routine 10/19/2016 Ua Specific Bivins 1.000 Ua PH 7 Ua Color LIGHT [...] Color Yellow Urine Appearance Cloudy Urine Specific Bivins 1.010 1.010-1.030 Urine pH 8.0 5-9 Urine [...] Color Sushila Urine Appearance Cloudy Urine Specific Bivins 1.012 1.010-1.030 Urine pH 6.0 5-9 Urine [...] mg/dL 6-24 Ua Routine 03/17/2015 Ua Specific Bivins 1.005 Ua PH 8.5 Ua Color sushila [...] Yellow W/Microscopic Urine Appearance Clear Urine Specific Bivins 1.010 1.010-1.030 Urine Esterase Negative Negative Urine [...] < 0.1 NG/ML Low 0.5-1.5 77 1 [id number] 2 SEE RESULT BELOW Name: ONEIDA COREY : [address]: Haylee Cordero MD Acct: [id number] Unit: [id number] AGE: 52 Location: [facility] Re08/28/17 SEX: F Status: REG REF SPEC: [id number] LATASHA: 08/28/17-[address] [facility] [address]: Radha Núñez MD REQ: [id number] RECD: 08/28/17-5865 [facility]: Haylee Cordero MD _ ORDERED: LEVEL 4/2, IMMUNO-FIRST, IMMUNO-ADDL, IMMUNO-QUANT/3 COMMENTS: [id number] Immunohistochemical stains, with appropriately reacting controls, were performed with the following results: ER strongly positive, nearly 100% of tumor cells RI negative (0%) HER-2/maritza negative (0+) P63 positive [...] and distribution: Involves multiple sampled cores. Estimated Bigelow grade: Estimated tubule formation: 3. Estimated nuclear grade: 3. Estimated mitotic count: 1. Combined Amador histologic grade: 2/3. (7/9 points). Lymphovascular invasion: Not identified. 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 Extent and distribution: Present in association with invasive carcinoma. Architectural pattern: Cribriform and solid types. Nuclear grade: Intermediate. Necrosis: Absent. ER, RI, and Her2/Maritza by immunohistochemistry with appropriate controls: ER: Pending; results will be reported in an addendum. CONTINUED ON NEXT PAGE DEPARTMENT OF PATHOLOGY, [address] [place] [address] Silvestre Collier M.D. Director [facility] # [id number] RUN DATE: 08/30/17 [facility] LAB LIVE PAGE 2 Patient: ONEIDA COREY [id number] (Continued) FINAL DIAGNOSIS (Continued) RI: Pending; results will be reported in an [...] 0912 END OF REPORT DEPARTMENT OF PATHOLOGY, [address] [place] [address] Silvestre Collier M.D. Director [facility] # [id number] 3 Because ethnic data is not always [...] 5 Kidney failure <15 (or dialysis) 4 [facility] Severe Sepsis and Septic Shock Management Bundle Measure requires all lactic acids initially measuring >2.0 mmol/L be repeated. 5 SEE RESULT BELOW Name: ONEIDA COREY : [address]: Luis Miguel Astorga MD Acct: [id number] Unit: [id number] AGE: 52 Location: ED Re08/14/17 SEX: F Status: DEP ER SPEC: [id number] LATASHA: 08/14/[address] [facility] [address]: Jennifer SANTIAGO REQ: [id number] RECD: 08/14/17 STATUS: ISACC WATTERS DR: Haylee Astorga MD _ SOURCE: BLOOD,VENO SPDES: ORDERED: Blood Cult Procedure Result Reported Site Aerobic Culture Bottle Final 08/19/17- 1935 ML No Growth Day 5 Anaerobic Culture Bottle Final 08/19/171935 ML No Growth Day 5 * ML - Main Lab . END OF REPORT DEPARTMENT OF PATHOLOGY, [address] [place] [address] Silvestre Collier M.D. Director [facility] # [id number] 6 CALL RESULTS EXT : 4591 7 CALL RESULTS EXT : 4591 8 Because ethnic data is not always [...] confidence interval of 99.78 to 99.96%. 17 [id number] 18 SEE RESULT BELOW Name: ONEIDA COREY : [address]: Haylee Cordero MD Acct: [id number] Unit: [id number] AGE: 51 Location: [facility] Re10/19/16 SEX: F Status: REG REF SPEC: [id number] LATASHA: 10/19/16-[address] [facility] [address]: Haylee Cordero MD REQ: [id number] RECD: 10/19/16 STATUS: COMP _ SOURCE: VAGINAL SPDESC: ORDERED: Envaeh,Yeast DNA COMMENTS: [id number] Procedure Result Reported Site Gardnerella/Yeast: Vaginal DNA Final 10/20/16- 0950 ML Organism 1 POSITIVE GARDNERELLA Organism 2 Negative Orcío The presence of G. vaginalis, although suggestive, [...] or failure. * ML - MAIN LAB ([facility]) . END OF REPORT * ML=Testing performed at Main Lab DEPARTMENT OF PATHOLOGY, [address] [place] [address] Silvestre Collier M.D. Director [facility] # [id number] 19 [id number] GC/Chlamydia Source?: Endocervical Trichomonas Source: Endocervical 20 Would you like to order Trichomonas Vaginalis RNA testing? N 21 SEE RESULT BELOW Name: ONEIDA COREY : [address]: Brigido Noe DO Acct: [id number] Unit: [id number] AGE: 51 Location: ED Re08/18/16 SEX: F Status: DEP ER SPEC: [id number] LATASHA: 08/18/16-[address] [facility] [address]: Tressa SANTIAGO REQ: [id number] RECD: 08/18/16 STATUS: ISACC WATTERS DR: Brigido [...] or failure. * ML - MAIN LAB ([facility]) . END OF REPORT * ML=Testing performed at Main Lab DEPARTMENT OF PATHOLOGY, [address] [place] [address] Silvestre Collier M.D. Director [facility] # [id number] 22 [facility] Severe Sepsis and Septic Shock Management [...] (or dialysis) 24 Acute inflammation: >10.00 25 [facility] Severe Sepsis and Septic Shock Management [...] of blood. 30 SEE RESULT BELOW Name: ONEIDA COREY : [address]: Robert Sánchez MD Acct: [id number] Unit: [id number] AGE: 50 Location: ED Re06/04/16 SEX: F Status: DEP ER SPEC: [id number] LATASHA: 06/04/[address] [facility] [address]: Robert Sánchez MD REQ: [id number] RECD: 06/04/16 STATUS: ISACC WATTERS DR: Haylee Cordero MD _ SOURCE: [facility]: ORDERED: Nevaeh,Yeast DNA Procedure Result Reported Site [...] or failure. * ML - MAIN LAB ([facility]) . END OF REPORT * ML=Testing performed at Main Lab DEPARTMENT OF PATHOLOGY, [address] [place] [address] Silvestre Collier M.D. Director [facility] # [id number] 31 GC/Chlamydia Source?: Endocervical Trichomonas Source: Endocervical 32 SEE RESULT BELOW Name: ONEIDA COREY : [address]: Robert Sánchez MD Acct: [id number] Unit: [id number] AGE: 50 Location: ED Re06/04/16 SEX: F Status: DEP ER SPEC: [id number] LATASHA: 06/04/[address] [facility] [address]: Robert Sánchez MD REQ: [id number] RECD: 06/04/16 STATUS: ISACC WATTERS DR: Haylee Cordero MD _ SOURCE: URINE SPDESC: ORDERED: Urine Culture Procedure Result Reported Site Urine Culture Final 06/08/16- 18 ML Organism 1 PROTEUS MIRABILIS Fork Count >100,000 (Many) CFU/ML Organism 2 NORMAL FERCHO Fork Count 1-10,000 (Few) CFU/ML 1. PROTEUS MIRABILIS M.I.C. RX --------- ------ Ampicillin >=32 R Cefazolin R Cefepime S Ceftriaxone S Ciprofloxacin <=0.25 S Gentamicin <=1 S Levofloxacin <=0.12 S Meropenem R Nitrofurantoin 128 R Tetracycline >=16 R Pipercillin/Tazobactam R Trimethoprim/Sulfamethoxazole <=20 S Aztreonam S Contact the Microbiology Department for any additional antibiotic reporting. * ML - MAIN LAB ([facility]) . END OF REPORT * ML=Testing performed at Main Lab DEPARTMENT OF PATHOLOGY, [address] [place] [address] Silvestre Collier M.D. Director [facility] # [id number] 33 FASTING 10 HOUR 34 Because ethnic [...] and in selective patients <6.0%.Please refer to [place] [employer] Diabetic care guidelines for further [...] <15 (or dialysis) 55 RUN DATE: 08/31/12 [facility] LAB LIVE PAGE 1 RUN TIME: [address] [place] [address] Specimen Inquiry Name: ONEIDA COREY : [address]: Haylee Cordero MD Acct: [id number] Unit: [id number] AGE: 47 Location: [facility] Re08/27/12 SEX: F Status: REG REF SPEC: [id number] LATASHA: 08/27/12-[address]: Haylee Cordero MD REQ: [id number] RECD: 08/27/12-160 STATUS: SOUT _ ORDERED: IMAGE ANALYSIS, HPV / Thin Prep HiRisk Human Papilloma Virus test results received with preparation and diagnosis completed by [facility], [place], [place]. Results: NEGATIVE High Risk (for types 16, 18, 31, 33, 35, 39, 45, 51, 52, 56, 58, 59, 68) SERVICEINFINITY Hybrid Capture Specimen Transport Media or Weaved ThinPrep PapTest PreservCyt Solution are the collection systems approved for use with this method by the U.S. Food and Drug Administration. Performance characteristics for AutoCyte (SurPath) collection device have been determined by Laboratory Medicine and Pathology , [facility], [place], [place]. It has not been cleared or approved by the U.S. Food and Drug Administration. Test Performed by: [facility] Dpt of lab Med and Pathology [address] [place] [address] Card Assembler: Tu Benavidez III, M.D. Original hard copy report from [facility] is available upon request by calling Pathology at [phone]. Addendum Signed (signature on file) BRYCE Mullen ([facility]) 08/31/12 0919 FINAL DIAGNOSIS Negative for Intraepithelial lesion or Malignancy COMMENTS: Specimen sent to [facility] in [place], [place] on 08/28/12. Results will be reported separately in an Addendum. A. Ectocervical/Endocervical Specimen Adequacy: CONTINUED ON NEXT PAGE * ML=Testing performed at Main Lab DEPARTMENT OF PATHOLOGY, [facility] [place], [place] [address] Silvestre Collier M.D. Director [facility] Permit #[id number] RUN DATE: 08/31/12 [facility] LAB LIVE PAGE 2 RUN TIME: 918 [facility] [place], [place] [address] Specimen Inquiry Patient: ONEIDA COREY [id number] (Continued) CYTOLOGY ADEQ (Continued) Satisfactory of evaluation Transformation zone component identified Patient Information: HPV: High risk HPV DNA testing regardless of pap results. Actual Specimen Date: 08/27/12 Last Menstrual Date: 08/22/12 IUD: N Lesion, grossly demonstrate: N Previous Abnormal Pap Smears?:Y If Yes, enter Diagnosis: Atypical Squamous cells of uncertain significance. Signed (signature on file) Silvia BRYCE Daniel ([facility]) 08/28/12 1221 This Pap test was evaluated with the assistance of the Palmaz ScientificPrep Test Imaging System. Due to cytologic findings at the victim advocate microscope, comprehensive manual rescreening by a Bottle Washer may be required. The Pap Smear is [...] performed at Main Lab DEPARTMENT OF PATHOLOGY, [facility] [place], [place] [address] Silvestre Collier M.D. Director [facility] Permit #[id number] 56 For types 16, 18, 31, 33, 35, 39, 45, 51, 52, 56, 58, 59 and 68. Test Performed by: [address] [address] Card Assembler: Tu Benavidez III, M.D. 57 RUN DATE: 04/18/12 [facility] LAB LIVE PAGE 1 RUN TIME: 1154 [facility] [place], [place] [address] Specimen Inquiry Name: ONEIDA COREY : [address]: Haylee Cordero MD Acct: [id number] Unit: [id number] AGE: 46 Location: [facility] Re04/17/12 SEX: F Status: REG REF SPEC: [id number] LATASHA: 04/17/12-[address]: Haylee Cordero MD REQ: [id number] RECD: 04/17/12 STATUS: COMP _ SOURCE: VAGINAL SPDESC: ORDERED: Affirm QUERIES: Medent Number [id number] Procedure Result Verified Site Affirm Vaginal DNA [...] performed at Main Lab DEPARTMENT OF PATHOLOGY, [address] [place] [address] Silvestre Collier M.D. Director [facility] Permit #[id number] 58 Test Performed by: [address] [address] Card Assembler: Tu Benavidez III, M.D. 59 CHOLESTEROL INTERPRETATION: [...] hemoglobin or beta thalassemia. Test Performed by: [address] [address] Card Assembler: Tu Benavidez III, M.D. 64 Negative in normal Individuals. May be negative in dermatitis herpatiformis or celiac disease patients adhering to a gluten free diet. Laboratory developed test. Test Performed by: [place] [address] Card Assembler: Tu Benavidez III, M.D. 65 -- REFERENCE VALUE -- <20.0 (Negative) Test Performed by: [place] [address] Card Assembler: Tu Benavidez III, M.D. 66 -- REFERENCE VALUE -- <20.0 (Negative) Test Performed by: [place] [address] Card Assembler: Tu Benavidez III, M.D. 67 Test Performed by: [place] [address] Card Assembler: Tu Benavidez III, M.D. 68 ---- RUN DATE: 01/06/12 [facility] NMI LIVE PAGE 1 RUN TIME: 838 Specimen Inquiry RUN USER: INTERFACE -- Name: ONEIDA COREY Trav#: [id number] Status: REG REF Re01/02/12 Age/Sex: 46/F Unit#: [id number] Location: [facility] : [birth year] -- Specimen: [id number] RENATA Spec Date:01/02/12-[address]: Haylee mclaughlin MD Spec Type: [...] significance (ASC-US) * NOTE Specimen sent to [facility] in [place], [place] on 01/03/12 by DB at 1409. Results will be reported separately in an addendum. Less than 8 mls of fluid left in vial, sample will most likely be quantity not sufficient for HPV testing. ADDENDUM Addendum #1 Entered: 01/06/12 HPV DNA High Risk Test Cancelled. Quantity not sufficient. This test was developed and its performance characteristics determined by Laboratory Medicine and Pathology, [facility] [facility] -- DEPARTMENT OF PATHOLOGY, [address] [place] [address] [facility] Permit #[id number] Silvestre Collier M.D. Director Andreas Luque M.D. Paraffiner Dir osorio -- -- RUN DATE: 01/06/12 [facility] NMI LIVE PAGE 2 RUN TIME: 838 Specimen Inquiry RUN USER: INTERFACE -- Name: ONEIDA COREY Status: REG REF Re01/02/12 Age/Sex: 46/F Unit#: [id number] Location: [facility] : 67 -- -- CONTINUED -- [place]. It has not been cleared or approved by the U.S. Food and Drug Administration. Test Performed by: [facility] Dpt of lab Med and Pathology [address] [place] [address] Card Assembler: Tu Benavidez III, M.D. Original hard copy report from [facility] is available upon request by calling Pathology at [phone]. Addendum Review Juan Ramon DANIEL([facility]) 01/06/12 -- This Pap test was evaluated with the assistance of the Palmaz ScientificPre[employer] Pap Test Imaging System. Due to cytologic findings at the victim advocate microscope, comprehensive manual rescreening by a Bottle Washer was required. The Pap Smear is a [...] years. Initial evaluation performed by Juan Ramon DANIEL([facility]) 01/03/12 Final Interpretation electronically signed by: ANDREAS LUQUE 01/03/12 1442 -- -- DEPARTMENT OF PATHOLOGY, [address] [place] [address] [facility] Permit #[id number] Sil[facility] Col[facility] M.D. Director Andreas Luque M.D. Paraffiner Dir jo -- 69 Please note: New reference range, effective 05/19/11 NORMAL REFERENCE RANGE: GREATER THAN 4.1 NG/ML 70 Anion gap measurement may be of limited value in the presence of any alkalosis, especially in a combined acid base disorder. . 71 A metabolite of Naproxen, O-desmethylnaproxen, has been shown to interfere with the Jendrassik-Monte Sereno method for measuring total bilirubin. Samples from [...] Procedures Date CPT Code Description Status 09/15/2017 74587 EKG Tracing & Interpretation Completed 08/28/2017 Mammogram Completed 08/17/2017 Mammogram Completed 08/11/2017 27163 Moderate Sedation Services; Same Phys Each Additional Completed 15 Mins 08/11/2017 03798 Moderate Sedation Services; Same Phys Intl 15 Mins; PT Completed >=5 Years 08/11/2017 34197 Ultrasound Guidance For Vascular Access Completed 08/11/2017 42036 Vascular Embolization Or Occlu Tumor Organ Ischemia Or Completed Infarction 08/11/2017 75076 Catheter Placement Arterial System Init 3RD Order Completed Abdom/Pelv/Low 08/11/2017 38454 Common Femoral, Bilat Completed 07/13/2017 Mammogram Completed 03/16/2017 Colonoscopy Completed 01/13/2017 42458 EKG Tracing & Interpretation Completed 06/08/2016 37660 ECHO Transthoracic, Real-Time 2D With Doppler And Color Completed Flow 06/07/2016 52925 EKG Tracing & Interpretation Completed 05/20/2016 Mammogram Completed 10/01/2015 08134 Holter Monitor Review (24 hr)dr dobson & rohini Completed only 09/30/2015 43709 ECG Monitor/Recording W/Visual Superimposition Scanning Completed 09/25/2015 67605 EKG Tracing & Interpretation Completed 09/23/2015 92162 ECHO Transthoracic, Real-Time 2D With Doppler And Color Completed Flow 05/07/2015 Mammogram Completed 11/20/2014 30900 ECG Monitor/Recording W/Visual Superimposition Scanning Completed 11/20/2014 34143 Holter Monitor Review (24 hr)dr dobson & rohini Completed only 11/17/2014 58544 Holter Monitor Review (24 hr)dr da silvaamp; rohini Completed only 11/17/2014 51596 ECG Monitor/Recording W/Visual Superimposition Scanning Completed 11/07/2014 55424 ECHO Transthoracic, Real-Time 2D With Doppler And Color Completed Flow 10/24/2014 17799 EKG Tracing & Interpretation Completed 02/21/2014 10667 ECHO Transthoracic, Real-Time 2D With Doppler And Color Completed Flow 02/07/2014 87093 EKG Tracing & Interpretation Completed 01/23/2013 Mammogram Completed 01/27/2012 56817 ECHO Transthoracic, Real-Time 2D With Doppler And Color Completed Flow 01/06/2012 Mammogram Completed 09/28/2011 76805 EKG Tracing & Interpretation Completed Encounters Type Date Location Provider CPT E/M Dx Office Visit 08/12/2017 [facility] Vascular Medicine Osiel Augustine, 94102 D25.9 3:19p Of Jacinto Womack Office Visit 08/12/2017 [facility] re[facility] Boyle M.D. 18637 D25.9 9:07a Hospitalists I42.5 I10 R00.0 Office Visit 08/11/2017 9:06a rena Schwartz 27513 D25.9 Hospitalists GRICELDA Boyd I42.5 I10 R00.1 Office Visit 04/10/2017 2:30p [facility] Of Maite Salcedo, 07577 M79.672 [facility] At [facility] , CHLOE, FSCAI Office Visit 03/03/2017 2:30p [facility]all Calhoun, 78546 M76.821 C.M.A. M.D. Office Visit 01/31/2017 8:45a [facility], 56418 M76.821 C.M.A. M.D. Office Visit 01/31/2017 2:40p [facility] Internal Medicine Haylee Cordero, 02891 N71.1 - Keila Womack E78.4 R11.0 R35.0 I10 Office Visit 01/13/2017 1:30p [facility] JACK Fulton 38756 G47.00 I42.9 R94.31 I10 Office Visit 10/19/2016 8:30a [facility] Internal Medicine Haylee Cordero M.D. 21336 R30.0 - [place] N89.8 Z11.4 Office Visit 09/14/2016 1:30p [facility] Vascular Medicine Osiel Augustine, 41477 D25.9 Of [facility] Shanta Office Visit 08/30/2016 2:40p [facility] Internal Medicine Haylee Cordero M.D. 68379 D25.9 - [place] I10 Z12.11 Office Visit 07/27/2016 2:30p [facility] Internal Medicine - Lupe Cummings, [employer] [address] F41.9 Z13.220 I42.9 Office Visit 06/07/2016 3:00p [facility] Kesha Alfaro, 99474 I42.9 M.DSelina I10 I34.0 R94.31 Office Visit 05/03/2016 9:50a [facility] Internal Medicine - Haylee Cordero M.D. [address] [address] [place] F41.9 D64.9 Z23 Office Visit 01/27/2016 1:40p [facility] Internal Medicine - Hubert Geronimo, GRICELDA [address] Z12.31 I42.9 I10 L30.9 F43.0 J30.9 L70.0 Office Visit 01/25/2016 4:00p [facility] Internal Medicine Jamal Palacios, 02440 K57.92 - Tbaleksander Batista M.D. Office Visit 11/02/2015 3:30p [facility] JACK Fulton 43488 I49.3 I42.9 I10 Office Visit 10/02/2015 2:30p [facility], 88069 Q66.51 Vinnie Womack L84 Office Visit 09/25/2015 2:20p [facility] Kesha Alfaro, 82182 I42.9 M.DSelina I10 I49.3 Office Visit 07/06/2015 4:00p [facility] Internal Medicine Robert Baez, 45162 J06.9 - Florentino Womack Office Visit 05/05/2015 3:00p [facility], 87880 Q66.51 Vinnie Womack M65.871 Office Visit 04/15/2015 10:30a [facility] Internal Medicine Haylee Cordero, 39988 Z00.01 - Florentino Womack L84 Q66.51 N92.0 Z12.31 Z23 J30.9 Office Visit 03/17/2015 11:10a [facility] Internal Medicine Haylee Cordero, 20827 R10.30 - Florentino Womack J01.90 R73.01 Office Visit 02/23/2015 11:50a [facility] Internal Medicine Haylee Cordero M.D. 16439 K64.9 - Florentino K59.09 I10 D50.9 K64.0 Office Visit 02/12/2015 2:30p [facility] JACK Fulton [address] 425.9 401.9 272.4 425.4 Office Visit 11/27/2014 9:30a [facility] JACK Fulton 86231 785.0 425.9 401.9 272.2 674.81 Office Visit 10/24/2014 10:20a [facility] Kesha Alfaro, 97445 425.9 M.DSelina 401.9 272.2 424.0 785.0 785.1 Office Visit 07/29/2014 2:50p [facility] Internal Medicine Haylee Cordero, [address] 300.00 - [place] M.DSelina 795.51 V70.3 Office Visit 03/12/2014 3:30p [facility] JACK Fulton 19954 281.9 425.9 401.9 Office Visit 02/07/2014 3:00p [facility] Kesha Alfaro, 92586 272.2 M.D. 401.9 425.9 Office Visit 12/26/2013 1:10p [facility] Haylee Cordero M.D. 74705 V70.0 - [place] 700 V76.10 272.2 281.9 Office Visit 11/26/2013 3:10p [facility] Haylee Cordero M.D. 93314 724.2 - [place] 401.9 Office Visit 01/16/2013 10:30a [facility] Haylee Cordero M.D. 37831 128.9 - [place] V76.10 Office Visit 10/04/2012 2:20p [facility] Turner, [address] 401.9 [facility] D.O. 674.81 272.4 285.9 Office Visit 09/26/2012 4:10p [facility] Haylee Cordero M.D. 61846 281.9 - [place] 272.4 Office Visit 08/27/2012 10:50a [facility] Haylee Cordero M.D. 64591 285.9 - [place] 401.9 795.01 674.81 Office Visit 04/17/2012 9:50a [facility] Haylee Cordero M.D. 90155 623.5 - [place] 285.9 401.9 795.01 V04.81 Office Visit 03/12/2012 10:20a [facility] Clarissa AbdulOSelina 78190 674.81 401.9 Office Visit 01/25/2012 9:50a [facility] Haylee Cordero M.D. 46835 285.9 - [place] 401.9 309.89 795.01 Office Visit 01/02/2012 11:30a [facility] Haylee Cordero 26868 V72.31 - [place] M.D. V76.2 V77.91 V76.19 V15.06 285.9 V06.1 Office Visit 11/28/2011 2:30p [facility] Haylee Cordero M.D. 66940 281.9 - [place] 401.9 425.9 Office Visit 11/18/2011 11:40a [facility] Roya French M.D. 46054 281.9 - [place] 780.4 564.09 Office Visit 11/09/2011 9:40a [facility] Amira Turner D.O. 85745 401.1 281.9 564.09 674.81 Office Visit 09/28/2011 9:40a [facility] Amira Turner D.O. 36961 425.9 401.1 281.9 Office Visit 09/12/2011 10:45a [facility] Haylee Cordero 08983 564.09 - [place] Womack 465.9 Office Visit 09/05/2011 11:30a [facility] Haylee Cordero 34325 674.81 - [place] Office Visit 08/15/2011 10:30a [facility] Haylee Cordero 07457 281.9 - [place] 674.81 555.9 Office Visit 07/07/2011 10:00a [facility] Haylee Cordero 71870 648.62 - [place] Womack 706.1 300.00 623.5 281.9 Plan of Care Future Appointment(s):09/20/2017 8:00 am - Traveling ECHO Schedule at [facility]09/29/2017 1:00 pm - Myla Santana NP at [facility]09/29/2017 1:00 pm - Jackie Bragg MD at [facility]09/21/2017 3:30 pm - Osiel Augustine M.D. at [facility]
--- OUTSIDE RECORDS SUMMARY | 2017-10-05 11:41 | XMS REPORT ---
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 Doxycycline 03/17/2015 - Hx Capsules 100mg 20 [...] CPT Code Status Date Vaccine Lot # [id number] Given 05/03/2016 Influenza Virus Vaccine, Quadrivalent, Split [id number] Virus, Im Use 19305 Given 04/15/2015 Influenza Virus Vaccine, Quadrivalent, Split, [id number] Preservative Free [id number] Given 04/17/2012 Fluvirin Im 3Yrs And Older [id number] Given 01/02/2012 Tdap - Tetanus/Diptheria/Acellular Pertussis [id number] Vital Signs Date Vital Result Comment 09/15/2017 Height 70 inches 5'10" Weight 177.50 [...] Profile 08/14/2017 Urine Appearance Cloudy Urine Specific [place] 1.009 Low 1.010-1.030 Urine pH 7.0 5-9 [...] >60 10 Ua Routine 01/31/2017 Ua Specific [place] 1.015 Ua PH 5 Ua Color light [...] 17, 19 Ua Routine 10/19/2016 Ua Specific [place] 1.000 Ua PH 7 Ua Color LIGHT [...] Color Yellow Urine Appearance Cloudy Urine Specific [place] 1.010 1.010-1.030 Urine pH 8.0 5-9 Urine [...] Color Sushila Urine Appearance Cloudy Urine Specific [place] 1.012 1.010-1.030 Urine pH 6.0 5-9 Urine [...] mg/dL 6-24 Ua Routine 03/17/2015 Ua Specific [place] 1.005 Ua PH 8.5 Ua Color sushila [...] Yellow W/Microscopic Urine Appearance Clear Urine Specific [place] 1.010 1.010-1.030 Urine Esterase Negative Negative Urine [...] < 0.1 NG/ML Low 0.5-1.5 77 1 [id number] 2 SEE RESULT BELOW Name: ONEIDA COREY : [address]: Haylee Cordero MD Acct: [id number] Unit: [id number] AGE: 52 Location: [facility] Re08/28/17 SEX: F Status: REG REF SPEC: [id number] LATASHA: 08/28/17-1308 [facility] DR: Radha Núñez MD REQ: [id number] RECD: 08/28/17-5251 STATUS: RENATA WATTERS DR: Haylee Cordero MD _ ORDERED: LEVEL 4/2, IMMUNO-FIRST, IMMUNO-ADDL, IMMUNO-QUANT/3 COMMENTS: [id number] Immunohistochemical stains, with appropriately reacting controls, were performed with the following results: ER strongly positive, nearly 100% of tumor cells ME negative (0%) HER-2/maritza negative (0+) P63 positive [...] and distribution: Involves multiple sampled cores. Estimated [place] grade: Estimated tubule formation: 3. Estimated nuclear grade: 3. Estimated mitotic count: 1. Combined [place] histologic grade: 2/3. (7/9 points). Lymphovascular invasion: Not identified. 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 Extent and distribution: Present in association with invasive carcinoma. Architectural pattern: Cribriform and solid types. Nuclear grade: Intermediate. Necrosis: Absent. ER, ME, and Her2/Maritza by immunohistochemistry with appropriate controls: ER: Pending; results will be reported in an addendum. CONTINUED ON NEXT PAGE DEPARTMENT OF PATHOLOGY, [address] [place] [address] Silvestre Collier M.D. Director [facility] # [id number] RUN DATE: 08/30/17 [facility] LAB LIVE PAGE 2 Patient: ONEIDA COREY [id number] (Continued) FINAL DIAGNOSIS (Continued) ME: Pending; results will be reported in an [...] 0912 END OF REPORT DEPARTMENT OF PATHOLOGY, [address] [place] [address] Silvestre Collier M.D. Director [facility] # [id number] 3 Because ethnic data is not always [...] 5 Kidney failure <15 (or dialysis) 4 [facility] Severe Sepsis and Septic Shock Management Bundle Measure requires all lactic acids initially measuring >2.0 mmol/L be repeated. 5 SEE RESULT BELOW Name: ONEIDA COREY : [address]: Luis Miguel Astorga MD Acct: [id number] Unit: [id number] AGE: 52 Location: ED Re08/14/17 SEX: F Status: DEP ER SPEC: [id number] LATASHA: 08/14/17 [facility] [address]: Jennifer SANTIAGO REQ: [id number] RECD: 08/14/17 STATUS: ISACC WATTERS DR: Haylee Astorga MD _ S[facility] ORDERED: Blood Cult Procedure Result Reported Site Aerobic Culture Bottle Final 08/19/171935 ML No Growth Day 5 Anaerobic Culture Bottle Final 08/19/171935 ML No Growth Day 5 * ML - Main Lab . END OF REPORT DEPARTMENT OF PATHOLOGY, [address] [place] [address] Silvestre Collier M.D. Director [facility] # [id number] 6 CALL RESULTS EXT : 3667 7 CALL RESULTS EXT : 6091 8 Because ethnic data is not always [...] confidence interval of 99.78 to 99.96%. 17 [id number] 18 SEE RESULT BELOW Name: ONEIDA COREY : [address]: Haylee Cordero MD Acct: [id number] Unit: [id number] AGE: 51 Location: [facility] Re10/19/16 SEX: F Status: REG REF SPEC: [id number] LATASHA: 10/19/16-35 [facility] DR: Haylee Cordero MD REQ: [id number] RECD: 10/19/16 STATUS: COMP _ SOURCE: VAGINAL SPDESC: ORDERED: Nevaeh,Yeast DNA COMMENTS: [id number] Procedure Result Reported Site Gardnerella/Yeast: Vaginal DNA [...] * ML - [facility] ([facility]) . END OF REPORT * ML=Testing performed at Main Lab DEPARTMENT OF PATHOLOGY, [address] [place] [address] Silvestre Collier M.D. Director [facility] # [id number] GC/Chlamydia Source?: Endocervical Trichomonas Source: Endocervical 20 Would you like to order Trichomonas Vaginalis RNA testing? N 21 SEE RESULT BELOW Name: ONEIDA COREY : [address]: Brigido Noe DO Acct: [id number] Unit: [id number] AGE: 51 Location: ED Re08/18/16 SEX: F Status: DEP ER SPEC: [id number] LATASHA: 08/18/16-[address]: Tressa SANTIAGO REQ: [id number] RECD: 08/18/16 STATUS: COMP OTHR DR: Brigido Hurst MD _ SOURCE: VAGINAL [...] performed at Main Lab DEPARTMENT OF PATHOLOGY, [address] [place] [address] Silvestre Collier M.D. Director [facility] # [id number] 22 [facility] Severe Sepsis and Septic Shock Management [...] (or dialysis) 24 Acute inflammation: >10.00 25 [facility] Severe Sepsis and Septic Shock Management [...] [address]: Robert Sánchez MD Acct: [id number] Unit: [id number] AGE: 50 Location: ED Re06/04/16 SEX: F Status: DEP ER SPEC: [id number] LATASHA: 06/04/16 [facility] [address]: Robert Sánchez MD REQ: [id number] RECD: 06/04/16 STATUS: ISACC WATTERS DR: Haylee Cordero MD _ SOURCE: [facility]: ORDERED: NevaehYeast DNA Procedure Result Reported Site Gardnerella/Yeast: Vaginal [...] or failure. * ML - MAIN LAB ([facility]) . END OF REPORT * ML=Testing performed at Main Lab DEPARTMENT OF PATHOLOGY, [address] [place] [address] Silvestre Collier M.D. Director [facility] # [id number] 31 GC/Chlamydia Source?: Endocervical Trichomonas Source: Endocervical 32 SEE RESULT BELOW Name: ONEIDA COREY : [address]: Robert Sánchez MD Acct: [id number] Unit: [id number] AGE: 50 Location: ED Re06/04/16 SEX: F Status: DEP ER SPEC: [id number] LATASHA: 06/04/16 [facility] [address]: Robert Sánchez MD REQ: [id number] RECD: 06/04/16 STATUS: ISACC WATTERS DR: Haylee Cordero MD _ SOURCE: URINE SPDESC: ORDERED: Urine Culture Procedure Result Reported Site Urine Culture Final 06/08/16- 08 ML Organism 1 PROTEUS MIRABILIS [place] Count >100,000 (Many) CFU/ML Organism 2 NORMAL FERCHO [place] Count 1-10,000 (Few) CFU/ML 1. PROTEUS MIRABILIS [facility]. RX --------- ------ Ampicillin >=32 R Cefazolin R Cefepime S Ceftriaxone S Ciprofloxacin <=0.25 S Gentamicin <=1 S Levofloxacin <=0.12 S Meropenem R Nitrofurantoin 128 R Tetracycline >=16 R Pipercillin/Tazobactam R Trimethoprim/Sulfamethoxazole <=20 S Aztreonam S Contact the Microbiology Department for any additional antibiotic reporting. * ML - MAIN LAB ([facility]) . END OF REPORT * ML=Testing performed at Main Lab DEPARTMENT OF PATHOLOGY, [address] [place] [address] Silvestre Collier M.D. Director [facility] # [id number] 33 FASTING 10 HOUR 34 Because ethnic [...] and in selective patients <6.0%.Please refer to [place] [employer] Diabetic care guidelines for further [...] <15 (or dialysis) 55 RUN DATE: 08/31/12 [facility] LAB LIVE PAGE 1 RUN TIME: [address] [place] [address] Specimen Inquiry Name: ONEIDA COREY : [address]: Haylee Cordero MD Acct: [id number] Unit: [id number] AGE: 47 Location: [facility] Re08/27/12 SEX: F Status: REG REF SPEC: [id number] LATASHA: 08/27/12 [facility] DR: Haylee Cordero MD REQ: [id number] RECD: 08/27/12 STATUS: SOUT _ ORDERED: IMAGE ANALYSIS, HPV / Thin Prep HiRisk Human Papilloma Virus test results received with preparation and diagnosis completed by [facility], [place], [place]. Results: NEGATIVE High Risk (for types 16, 18, 31, 33, 35, 39, 45, 51, 52, 56, 58, 59, 68) Vigix Hybrid Capture Specimen Transport Media or Sharematic ThinPrep PapTest PreservCyt Solution are the collection systems approved for use with this method by the U.S. Food and Drug Administration. Performance characteristics for AutoCyte (SurPath) collection device have been determined by Laboratory Medicine and Pathology , [facility], [place], [place]. It has not been cleared or approved by the U.S. Food and Drug Administration. Test Performed by: [facility] Dpt of lab Med and Pathology [address] [place] [address] Accounting Specialist: Tu Benavidez III, M.D. Original hard copy report from [facility] is available upon request by calling Pathology at [phone]. Addendum Signed (signature on file) BRYCE Mullen (ASCP) 08/31/12 0919 FINAL DIAGNOSIS Negative for Intraepithelial lesion or Malignancy COMMENTS: Specimen sent to [email or web address] in [place], [place] on 08/28/12. Results will be reported separately in an Addendum. A. Ectocervical/Endocervical Specimen Adequacy: CONTINUED ON NEXT PAGE * ML=Testing performed at Main Lab DEPARTMENT OF PATHOLOGY, [address] [place] [address] Silvestre Collier M.D. Director [facility] Permit #[id number] RUN DATE: 08/31/12 [facility] LAB LIVE PAGE 2 RUN TIME: [address] [place] [address] Specimen Inquiry Patient: ONEIDA COREY [id number] (Continued) CYTOLOGY ADEQ (Continued) Satisfactory of evaluation [...] was evaluated with the assistance of the light Test Imaging System. Due to cytologic findings at the beef grinder microscope, comprehensive manual rescreening by a Dehairer may be required. The Pap Smear is [...] performed at Main Lab DEPARTMENT OF PATHOLOGY, [facility] [employer] [place] [address] Silvestre Collier M.D. Director [facility] Permit #[id number] 56 For types 16, 18, 31, 33, 35, 39, 45, 51, 52, 56, 58, 59 and 68. Test Performed by: [address] [address] Accounting Specialist: Tu Benavidez III, M.D. 57 RUN DATE: 04/18/12 [facility] LAB LIVE PAGE 1 RUN TIME: 1154 [facility] [place], [place] [address] Specimen Inquiry Name: ONEIDA COREY : [address]: Haylee Cordero MD Acct: [id number] Unit: [id number] AGE: 46 Location: [facility] Re04/17/12 SEX: F Status: REG REF SPEC: [id number] LATASHA: 04/17/12-1027 [facility] DR: Gil GUPTA [facility] REQ: [id number] RECD: 04/17/12 STATUS: COMP _ SOURCE: VAGINAL SPDESC: ORDERED: Affirm QUERIES: Medent Number [id number] Procedure Result Verified Site Affirm Vaginal DNA [...] performed at Main Lab DEPARTMENT OF PATHOLOGY, [address] [place] [address] Silvestre Collier M.D. Director [facility] Permit #[id number] 58 Test Performed by: [address] [address] Accounting Specialist: Tu Benavidez III, M.D. 59 CHOLESTEROL INTERPRETATION: [...] hemoglobin or beta thalassemia. Test Performed by: [address] [address] Accounting Specialist: Tu Benavidez III, M.D. 64 Negative in normal Individuals. May be negative in dermatitis herpatiformis or celiac disease patients adhering to a gluten free diet. Laboratory developed test. Test Performed by: [address] [address] Accounting Specialist: Tu Benavidez III, M.D. 65 -- REFERENCE VALUE -- <20.0 (Negative) Test Performed by: [facility] [address] [place] [address] Accounting Specialist: Tu Benavidez III, M.D. 66 -- REFERENCE VALUE -- <20.0 (Negative) Test Performed by: [place] [address] Accounting Specialist: Tu Benavidez III, M.D. 67 Test Performed by: [place] [address] Accounting Specialist: Tu Benavidez III, M.D. 68 ---- RUN DATE: 01/06/12 [facility] NMI LIVE PAGE 1 RUN TIME: 838 Specimen Inquiry RUN USER: INTERFACE -- Name: ONEIDA COREY Trav#: [id number] Status: REG REF Re01/02/12 Age/Sex: 46/F Unit#: [id number] Location: [facility] : [birth year] -- Specimen: [id number] SOUT Spec Date:01/02/12-1247 [facility] Dr: Haylee mclaughlin MD Spec Type: CYTOLOGY [...] significance (ASC-US) * NOTE Specimen sent to [facility] in [place], [place] on 01/03/12 by DB at 1409. Results will be reported separately in an addendum. Less than 8 mls of fluid left in vial, sample will most likely be quantity not sufficient for HPV testing. ADDENDUM Addendum #1 Entered: 01/06/12 HPV DNA High Risk Test Cancelled. Quantity not sufficient. This test was developed and its performance characteristics determined by [facility] Medicine [facility] Pathology, [place] -- DEPARTMENT OF PATHOLOGY, [address] [place] [address] [facility] Permit #[id number] Silvestre Collier M.D. Director Andreas Luque M.D. Supply Chain Design Manager Dir jo -- -- RUN DATE: 01/06/12 [facility] NMI LIVE PAGE 2 RUN TIME: 838 Specimen Inquiry RUN USER: INTERFACE -- Name: ONEIDA COREY Status: REG REF Re01/02/12 Age/Sex: 46/F Unit#: [id number] Location: [facility] : 67 -- -- CONTINUED -- ADDENDUM ([place], [place]. It has not been cleared or approved by the U.S. Food and Drug Administration. Test Performed by: [facility] Dpt of lab Med and Pathology [address] [facility] [address] Accounting Specialist: Tu Benavidez III, M.D. Original hard copy report from [email or web address] is available upon request by calling Pathology at [phone]. Addendum Review [facility] CORRALES([facility]) 01/06/12 -- This Pap test was evaluated with the assistance of the Black Card MediaPrep Pap Test Imaging System. Due to cytologic findings at the beef grinder microscope, comprehensive manual rescreening by a Dehairer was required. The Pap Smear is a [...] years. Initial evaluation performed by Juan Ramon CORRALES([facility]) 01/03/12 Final Interpretation electronically signed by: ANDREAS LUQUE 01/03/12 1442 -- -- DEPARTMENT OF PATHOLOGY, [address], [place], [place] [address] [facility] Permit #[id number] Silvestre Collier M.D. Director Andreas Luque M.D. Supply Chain Design Manager Dir jo -- 69 Please note: New reference range, effective 05/19/11 NORMAL REFERENCE RANGE: GREATER THAN 4.1 NG/ML 70 Anion gap measurement may be of limited value in the presence of any alkalosis, especially in a combined acid base disorder. . 71 A metabolite of Naproxen, O-desmethylnaproxen, has been shown to interfere with the Jendrassik-Valle method for measuring total bilirubin. Samples from [...] Procedures Date CPT Code Description Status 09/15/2017 16954 EKG Tracing & Interpretation Completed 08/28/2017 Mammogram Completed 08/17/2017 Mammogram Completed 08/11/2017 32940 Moderate Sedation Services; Same Phys Each Additional Completed 15 Mins 08/11/2017 50629 Moderate Sedation Services; Same Phys Intl 15 Mins; PT Completed >=5 Years 08/11/2017 33320 Ultrasound Guidance For Vascular Access Completed 08/11/2017 58394 Vascular Embolization Or Occlu Tumor Organ Ischemia Or Completed Infarction 08/11/2017 48792 Catheter Placement Arterial System Init 3RD Order Completed Abdom/Pelv/Low 08/11/2017 48014 Common Femoral, Bilat Completed 07/13/2017 Mammogram Completed 03/16/2017 Colonoscopy Completed 01/13/2017 83741 EKG Tracing & Interpretation Completed 06/08/2016 39869 ECHO Transthoracic, Real-Time 2D With Doppler And Color Completed Flow 06/07/2016 13046 EKG Tracing & Interpretation Completed 05/20/2016 Mammogram Completed 10/01/2015 87338 Holter Monitor Review (24 hr)dr dobson &zheng; rohini Completed only 09/30/2015 22998 ECG Monitor/Recording W/Visual Superimposition Scanning Completed 09/25/2015 39618 EKG Tracing & Interpretation Completed 09/23/2015 00714 ECHO Transthoracic, Real-Time 2D With Doppler And Color Completed Flow 05/07/2015 Mammogram Completed 11/20/2014 25516 ECG Monitor/Recording W/Visual Superimposition Scanning Completed 11/20/2014 27234 Holter Monitor Review (24 hr)dr dobson & rohini Completed only 11/17/2014 08620 Holter Monitor Review (24 hr)dr da silvaamp; rohini Completed only 11/17/2014 81391 ECG Monitor/Recording W/Visual Superimposition Scanning Completed 11/07/2014 59753 ECHO Transthoracic, Real-Time 2D With Doppler And Color Completed Flow 10/24/2014 70981 EKG Tracing & Interpretation Completed 02/21/2014 18051 ECHO Transthoracic, Real-Time 2D With Doppler And Color Completed Flow 02/07/2014 54544 EKG Tracing & Interpretation Completed 01/23/2013 Mammogram Completed 01/27/2012 52834 ECHO Transthoracic, Real-Time 2D With Doppler And Color Completed Flow 01/06/2012 Mammogram Completed 09/28/2011 00100 EKG Tracing & Interpretation Completed Encounters Type Date Location Provider CPT E/M Dx Office Visit 09/15/2017 2:20p [facility] Kesha Alfaro, 43329 I10 M.DSelina I42.9 Office Visit 08/12/2017 3:19p [facility] Vascular Medicine Osiel Augustine, [address]05 D25.9 [facility] MJoy Office Visit 08/12/2017 9:07a [facility],rena Wetzel, 32974 D25.9 Hospitalists Shanta I42.5 I10 R00.0 Office Visit 08/11/2017 9:06a [facility],rean Tolbert 18613 D25.9 Hospitalists GRICELDA Boyd I42.5 I10 R00.1 Office Visit 04/10/2017 2:30p [facility] Maite Salcedo, 56380 M79.672 [facility] , FACC, FSCAI Office Visit 03/03/2017 2:30p [facility], 03815 M76.821 C.MSelinaASelina MCristiano. Office Visit 01/31/2017 8:45a [facility], 23085 M76.821 C.MSelinaASelina MCristiano. Office Visit 01/31/2017 2:40p [facility] Internal Medicine Haylee Cordero, 87487 N71.1 - Keila Womack E78.4 R11.0 R35.0 I10 Office Visit 01/13/2017 1:30p [facility] JACK Fulton 46872 G47.00 I42.9 R94.31 I10 Office Visit 10/19/2016 8:30a [facility] Internal Medicine Haylee Cordero M.D. 90044 R30.0 - [place] N89.8 Z11.4 Office Visit 09/14/2016 1:30p [facility] Vascular Medicine Osiel Augustine, 76072 D25.9 Of Jacinto Womack Office Visit 08/30/2016 2:40p [facility] Internal Medicine Haylee Cordero M.D. 99336 D25.9 - [place] I10 Z12.11 Office Visit 07/27/2016 2:30p [facility] Internal Medicine - Lupe Cummings, [place] [address] F41.9 Z13.220 I42.9 Office Visit 06/07/2016 3:00p [facility] Kesha Alfaro, 68638 I42.9 M.DSelina I10 I34.0 R94.31 Office Visit 05/03/2016 9:50a [facility] Internal Medicine - Haylee Cordero M.D. 65533 [address] [place] F41.9 D64.9 Z23 Office Visit 01/27/2016 1:40p [facility] [place] [address] Z12.31 I42.9 I10 L30.9 F43.0 J30.9 L70.0 Office Visit 01/25/2016 4:00p [facility] Internal Medicine Jamal Palacios, 28811 K57.92 - [address] Shanta Office Visit 11/02/2015 3:30p [facility] JACK Fulton 47615 I49.3 I42.9 I10 Office Visit 10/02/2015 2:30p [facility], 63712 Q66.51 Vinnie Womack L84 Office Visit 09/25/2015 2:20p [facility] Kesha Alfaro, 19238 I42.9 M.DSelina I10 I49.3 Office Visit 07/06/2015 4:00p [facility] Internal Medicine Robert Baez, 49457 J06.9 - Florentino Womack Office Visit 05/05/2015 3:00p [facility], 78812 Q66.51 Vinnie Womack M65.871 Office Visit 04/15/2015 10:30a [facility] Internal Medicine Haylee Cordero, 87342 Z00.01 - Florentino Womack L84 Q66.51 N92.0 Z12.31 Z23 J30.9 Office Visit 03/17/2015 11:10a [facility] Internal Medicine Haylee Cordero, 38468 R10.30 - Florentino Womack J01.90 R73.01 Office Visit 02/23/2015 11:50a [facility] Internal Medicine Haylee Cordero M.D. 15977 K64.9 - Florentino K59.09 I10 D50.9 K64.0 Office Visit 02/12/2015 2:30p [facility] JACK Fulton 56696 425.9 401.9 272.4 425.4 Office Visit 11/27/2014 9:30a [facility] JACK Fulton 96084 785.0 425.9 401.9 272.2 674.81 Office Visit 10/24/2014 10:20a [facility] Kesha Alfaro, 23612 425.9 MSelinaDSelina 401.9 272.2 424.0 785.0 785.1 Office Visit 07/29/2014 2:50p [facility] Internal Medicine Haylee Cordero 10035 300.00 - Florentino Womack 795.51 V70.3 Office Visit 03/12/2014 3:30p [facility] JACK Fulton 77227 281.9 425.9 401.9 Office Visit 02/07/2014 3:00p [facility] Kesha Alfaro, 01657 272.2 M.D. 401.9 425.9 Office Visit 12/26/2013 1:10p [facility] Internal Medicine Haylee Cordero M.D. 96319 V70.0 - [place] 700 V76.10 272.2 281.9 Office Visit 11/26/2013 3:10p [facility] Internal Medicine Haylee Cordero M.D. 99361 724.2 - [place] 401.9 Office Visit 01/16/2013 10:30a [facility] Internal Medicine Haylee Cordero M.D. 29554 128.9 - [place] V76.10 Office Visit 10/04/2012 2:20p [facility] At Amira Turner, 20174 401.9 [facility] [place] D.OSelina 674.81 272.4 285.9 Office Visit 09/26/2012 4:10p [facility] Internal Medicine Haylee Cordero M.D. 47863 281.9 - [place] 272.4 Office Visit 08/27/2012 10:50a [facility] Internal Medicine Haylee Cordero M.D. 87341 285.9 - [place] 401.9 795.01 674.81 Office Visit 04/17/2012 9:50a [facility] Internal Medicine Haylee Cordero M.D. 61495 623.5 - [place] 285.9 401.9 795.01 V04.81 Office Visit 03/12/2012 10:20a [facility] Amira Turner D.O. 61044 674.81 401.9 Office Visit 01/25/2012 9:50a [facility] Internal Medicine Haylee Cordero M.D. 80210 285.9 - [place] 401.9 309.89 795.01 Office Visit 01/02/2012 11:30a [facility] Internal Medicine Haylee Cordero 81083 V72.31 - Florentino Womack V76.2 V77.91 V76.19 V15.06 285.9 V06.1 Office Visit 11/28/2011 2:30p [facility] Internal Medicine Haylee Cordero M.D. 35612 281.9 - [place] 401.9 425.9 Office Visit 11/18/2011 11:40a [facility] Internal Medicine Roya French M.D. 21371 281.9 - [place] 780.4 564.09 Office Visit 11/09/2011 9:40a [facility] Amira Turner D.O. 16264 401.1 281.9 564.09 674.81 Office Visit 09/28/2011 9:40a [facility] Amira Turner D.O. 84380 425.9 401.1 281.9 Office Visit 09/12/2011 10:45a [facility] Internal Medicine Haylee Cordero 51115 564.09 - Tulsarose Womack 465.9 Office Visit 09/05/2011 11:30a [facility] Internal Medicine Haylee Cordero 86298 674.81 - [place] Shanta Office Visit 08/15/2011 10:30a [facility] Internal Medicine Haylee Cordero, [id number] [phone] - [place]arissa [phone] Office Visit 07/07/2011 10:00a [facility] Internal Medicine Haylee Cordero, [id number] [phone] - [place]arissa [phone] Plan of Care Future Appointment(s):09/20/2017 8:00 am - Traveling ECHO Schedule at [facility]09/29/2017 1:00 pm - Myla Santana NP at [facility]09/29/2017 1:00 pm - Jackie Bragg MD at [facility]09/21/2017 3:30 pm - Osiel Augustine M.D. at [facility]09/15/2017 - Kesha Alfaro M.D.I10 Essential (primary) [id number] Cardiomyopathy, unspecifiedNew Orders:EchocardiogramFollow up: 6 months ov Dalia one yr ov with me
[2017-10-05 11:46] VITALS: BP 129/86
--- NOTE | 2017-10-05 12:25 | RAD ---
INDICATION: Bilateral uncal pain. TECHNIQUE: 3 views of both ankles were obtained. FINDINGS: There is medial soft tissue swelling present bilaterally. The bones are in normal alignment. No fracture is seen. There is mild osteoarthritic change in the right tibiotalar joint. The patient is status post osteotomy of the proximal right first metatarsal. There is also a surgical staple which projects over the right first proximal phalanx. IMPRESSION: 1. SOFT TISSUE SWELLING, NO EVIDENCE FOR ACUTE FRACTURE. 2. MILD OSTEOARTHRITIC CHANGE IN THE RIGHT TIBIOTALAR JOINT.
[2017-10-05] MEDS ORDERED: Ketorolac INJ* 60 MG/2 ML VIAL IM ONE (12:29)
--- NOTE | 2017-10-05 15:38 | UC ---
Manish Lee Nikita, scribed for Robert Sánchez MD on 10/05/17 at 1155 . Lower Extremity/Ankle HPI - HPI Summary HPI Summary: This patient is a 52 year old F presenting to [facility] with a chief complaint of bilateral ankle swelling since 2 days ago. She believes she sprained her ankles from wearing new shoes. She is able to ambulate but with pain. The patient rates the pain 10/10 in severity. Symptoms aggravated by ambulating. Symptoms alleviated by nothing. Patient denies any trauma to her ankles. - History of Current Complaint Chief Complaint: UCLowerExtremity Stated Complaint: KNEE/FOOT PAIN Time Seen by Provider: 10/05/17 11:45 Hx Obtained From: Patient Hx Last Menstrual Period: 09/12/2017 Onset/Duration: Sudden Onset, Lasting Days, Still Present Severity Initially: Severe Severity Currently: Severe Pain Intensity: 10 Pain Scale Used: 0-10 Numeric Aggravating Factor(s): Ambulation Alleviating Factor(s): Nothing Able to Bear Weight: Yes - Allergies/Home Medications Allergies/Adverse Reactions: Allergies Allergy/AdvReac Type Severity Reaction Status Date / Time SHRIMP Allergy Severe Swelling Uncoded 10/05/17 11:40 Of Face,Lips,& Throat PMH/Surg Hx/FS Hx/Imm Hx Cardiovascular History: Cardiac Disease, Hypertension Respiratory History: Bronchitis Neurological History: Other Other Neurological History: PATHAK Psychological History: Anxiety Other History Of: Negative For: Anticoagulant Therapy - Surgical History Surgical History: Yes Surgery Procedure, Year, and Place: Bilateral knee surgeries age 13,. RIGHT FOOT BUNION REPAIR - Family History Known Family History: Positive: Hypertension, Diabetes, Other Family History: breast CA - Social History Alcohol Use: None Substance Use Type: None Smoking Status (MU): Never Smoked Tobacco Have You Smoked in the Last Year: No Review of Systems Constitutional: Other - denies fever Musculoskeletal: Other: - bilateral ankle swelling; denies trauma All Other Systems Reviewed And Are Negative: Yes Physical Exam - Summary Physical Exam Summary: VITAL SIGNS: Reviewed. GENERAL: ~Patient is a well-developed and nourished FEMALE who is lying comfortable in the stretcher. ~Patient is not in any acute respiratory distress. HEAD AND FACE: Normocephalic EYES: PERRLA, EOMI x 2. EARS: Hearing grossly intact. MOUTH: Oropharynx within normal limits. NECK: Supple, trachea is midline, no adenopathy, no JVD, no carotid bruit. CHEST: Symmetric, no tenderness at palpation LUNGS: Clear to auscultation bilaterally. No wheezing or crackles. CVS: Regular rate and rhythm, S1 and S2 present, no murmurs or gallops appreciated. ABDOMEN: Soft, non-tender. Bowel sounds are normal. No abdominal abnormal pulsations. EXTREMITIES: Decreased ROM in in ankles secondary to pain, no cyanosis or clubbing. Both ankles are swollen, good capillary refill. NEURO: Alert and oriented x 3. No acute neurological deficits. Speech is normal and follows commands. SKIN: Dry and warm Triage Information Reviewed: Yes Vital Signs: Initial Vital Signs Temp 99.2 F 10/05/17 11:41 Pulse 81 10/05/17 11:41 Resp 18 10/05/17 11:41 BP 129/86 10/05/17 11:41 Pulse Ox 96 10/05/17 11:41 Vital Signs Reviewed: Yes Diagnostics - Radiology bilateral ankle XR Radiology Interpretation Completed By: Radiologist - 1. SOFT TISSUE SWELLING, NO EVIDENCE FOR ACUTE FRACTURE. 2. MILD OSTEOARTHRITIC CHANGE IN THE RIGHT TIBIOTALAR JOINT. [facility] physician has reviewed this radiology report. Re-Evaluation - Re-Evaluation First Eval Re-Evaluation Time: 12:29 Comment: Discussed results and discharge plan with the patient. She asked for a work note. Lower Extremity Course/Dx - Course Course Of Treatment: This patient is a 52 year old F presenting to [facility] with a chief complaint of bilateral ankle swelling since 2 days ago. Bilateral ankle XR reveals 1. SOFT TISSUE SWELLING, NO EVIDENCE FOR ACUTE FRACTURE. 2. MILD OSTEOARTHRITIC CHANGE IN THE RIGHT TIBIOTALAR JOINT. The patient was found to have increased BP in UC. The patient will follow up with PCP for better control of BP. The pt is hemodynamically stable, alert and oriented x3. I discussed all the findings and test results with the patient. The patient will be discharged with instructions to follow up with their PCP. Patient was instructed to return to the urgent care or go to ER immediately if any of the symptoms return or worsens. Plan of care was discussed with the patient, and patient understands and agrees. All questions were answered to patient satisfaction. There were no further complaints or concerns. - Differential Dx/Diagnosis Provider Diagnoses: bilateral ankle pain and swelling Discharge - Sign-Out/Discharge Documenting (check all that apply): Discharge/Admit/Transfer - Discharge Plan Condition: Stable Disposition: HOME Prescriptions: Ibuprofen TAB* [Motrin TAB* 600 MG] 600 mg PO Q8H PRN #30 tab PRN Reason: Pain Patient Education Materials: Arthralgia (ED), Swollen Joint (ED) Forms: *Work Release Referrals: Haylee Cordero MD [Primary Care Provider] - Additional Instructions: Take medications as instructed Increase your fluid intake Return to the UC if symptoms worsen The documentation as recorded by the Manish chatterjee Nikita accurately reflects the service I personally performed and the decisions made by , Robert Sánchez MD.
== END 2017-10-05 12:50 | disposition home or self-care (01) ==
LOC: UCEAST 11:27
DX: M25.572 Pain in left ankle and joints of left foot (principal); M25.571 Pain in right ankle and joints of right foot; M79.89 Other specified soft tissue disorders; M19.071 Primary osteoarthritis, right ankle and foot; I11.9 Hypertensive heart disease without heart failure; F41.9 Anxiety disorder, unspecified
CPT/HCPCS: 96372; 99212; G0463; J1885

== ENCOUNTER → 2018-01-18 09:56 | Day surgery (SDC) | payer OTHER ==
[~2018-01-18 09:56] MED LIST: Ibuprofen TAB* 600 MG ONE; Ibuprofen TAB* 600 MG PO ONE
[2018-01-18 12:52] VITALS: BP 143/93
--- NOTE | 2018-01-18 13:34 | RAD ---
INDICATION: PowerPort placement COMPARISON: Chest x-ray August 25, 2014 TECHNIQUE: An AP portable view obtained at 1252 hours is submitted. FINDINGS: Bones/Soft Tissues: There are no acute bony findings. There is a right-sided [id number] catheter terminating in the superior vena cava. There is left mastectomy with axillary dissection Cardiomediastinal: The cardiomediastinal silhouette is normal. Lungs: There are no infiltrates. There is a calcified granuloma in the right lung base. There is no pneumothorax Pleura: There are no pleural effusions. Other: None IMPRESSION: RIGHT-SIDED [id number] CATHETER EXPECTED POSITION. NO PNEUMOTHORAX. LUNGS CLEAR.
--- NOTE | 2018-01-18 14:01 | RAD ---
INDICATION: PowerPort insertion COMPARISON: None FINDINGS: 17.3 seconds of fluoroscopy were provided for the surgical department. Fluoroscopic spot imaging of the chest were obtained for operative control and show placement of a right PowerPort catheter in expected position. A follow-up chest x-ray is pending. . CPT II Codes: G9500 (fluoro time doc)
--- NOTE | 2018-01-19 02:08 | OP ---
CC: Dr. Haylee Cordero; Dr. Maite King * DATE OF OPERATION: 01/18/18 - [facility] DATE OF : 67 SURGEON: Diego Perea MD. CLAIM TECHNICIAN: None. ANESTHESIOLOGIST: None. PRE-OP DIAGNOSIS: Carcinoma of the breast. POST-OP DIAGNOSIS: Carcinoma of the breast. OPERATIVE PROCEDURE: Placement of right subclavian transjugular PowerPort. DESCRIPTION OF PROCEDURE: The patient was supine on the fluoroscopy table. The right chest and neck region were prepped with antiseptic and draped in a sterile fashion. Local infiltrative anesthesia was administered and in the subclavian region inferior pocket was created after a 3 cm incision was created. Subclavian venipuncture was attempted, but the clavicle in the first rib seemed to be very close together and it was a very tight fit to get through there. So, it was decided that an internal jugular approach would be utilized. Skinny needle was used to find the jugular vein and then the Cook needle was utilized and guidewire passed under fluoroscopic guidance. Catheter was tunneled out to the chest site, measured and cut to length at 27 cm, attached to the port, which was sutured in the pocket with 2-0 Prolene. Pocket was closed with 3-0 and 5-0 Vicryl, 5-0 Vicryl was used for the neck site as well. There was good blood return. It was flushed with saline solution and heparinized solution. The access needle was left in. Steri- Strips were placed and Tegaderm dressing was placed. She tolerated the procedure well. She was brought to Recovery in good condition. No complications. No drains. No pathologic specimens. Sponge and instruments counts were correct. ESTIMATED BLOOD LOSS: 10 mL. [id number]/[facility] #: [id number] [facility]
== END | disposition home or self-care (01) ==
LOC: OR 09:56
PROVIDERS: ATTEND Surgery
DX: C50.912 Malignant neoplasm of unspecified site of left female breast (principal); Z90.12 Acquired absence of left breast and nipple; C77.3 Secondary and unspecified malignant neoplasm of axilla and upper limb lymph nodes; I10 Essential (primary) hypertension; D50.0 Iron deficiency anemia secondary to blood loss (chronic); I42.5 Other restrictive cardiomyopathy; R73.01 Impaired fasting glucose
CPT/HCPCS: 71045; 76000; A9270-GY; C1788

== ENCOUNTER 2018-09-23 20:36 | Emergency (ER) | payer OTHER ==
--- OUTSIDE RECORDS SUMMARY | 2018-09-23 21:06 | XMS REPORT | Continuity of Care Document ---
:1965 External Reference #:[id number] Author Name Anyi Bailey Care Team Providers Name Role Phone Haylee Cordero MD Primary Care Physician Unavailable Payers Date Identification Numbers Payment Provider Subscriber Effective: 2011 Policy Number: [id number] Roni Reese Group Number: [id number] PayID: [id number] [place] [address] Advance Directives Description No Information Available Problems Active Problems Provider Date Cardiovascular Disease Other Haylee Cordero M.D. 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 Onset: 2017 breast Note: will undergo mastectomy /sentinel node biopsy [facility] [place] [facility] T1cNI stage 2 Essential hypertension Amira Turner D.O. Onset: 10/04/2012 Acne Haylee Cordero M.D. Onset: 07/07/2011 Restrictive cardiomyopathy secondary to Amira Turner D.O. 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 Onset: 03/12/2012 Anemia due to chronic blood loss Haylee Cordero M.D. 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 Onset: 07/29/2014 Note: LTBI treated 2004 Impaired fasting glycaemia Haylee Cordero M.D. Onset: 02/25/2015 Cardiomyopathy, unspecified Traveling ECHO 1 Onset: 09/23/2015 Uterine leiomyoma Haylee Cordero M.D. Onset: 08/30/2016 Plantar fascial fibromatosis Osiel Augustine M.D. Onset: 10/18/2017 Low back pain Osiel Augustine M.D. Onset: 10/18/2017 Hypercholesterolemia Haylee Cordero M.D. Onset: 07/31/2018 Rheumatoid arthritis Haylee Cordero M.D. Onset: 08/14/2018 Family History Date Family Member(s) Observation Comments General Heart Disease Father heart disease Father Hypertension Father Arthritis Mother Mother underwent menopause at age 54 Mother Diabetes Mother Hypertension Children 2 sons 17 yo, 4 yo, alive and well Siblings 3 sisters, 2 brothers alive and well Siblings Patient reports sister with uterine fibroids preventing Social History Type Date Description Comments Sex Unknown Marital Status Significant Other Lives With Son Occupation Disabled medical leave currently. 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 Tablets tabs daily for 10 days then 1 tab daily for 10 days then stop Terconazole one applicator per 45gm N76.0 Krystyna Ayala, 09/06/2018 0.4% vagina every night Cream at bedtime x 7 nights Valacyclovir HCL 1 tablet po bid x 3 30tabs N76.0 Krystyna Ayala, 2018 days prn 500mg Tablets exacerbation Vitamin D-3 2 a day Haylee Cordero, 08/14/2018 1000Unit M.D. Capsules Folic Acid take one 90tabs D64.9 Justyn Gabriel, 08/10/2018 1mg capsule/tablet daily M.D. Tablets by mouth Amlodipine Besylate 1 by mouth every day 90tabs I10 Melva Sue MD 2018 2.5mg Tablets I42.9 Lisinopril 1 by mouth every 90tabs I42.9 Haylee Cordero M.D. 07/24/2018 30mg Tablets day I10 Valtrex 1 by mouth twice a 10tabs A60.04 Haylee Cordero, 09/25/2017 500mg Tablets day x 5 days as M.D. needed Fluticasone Propionate 1 squirts each 16gm J30.9 Haylee Cordero, 2014 nostril every day M.D. 50mcg/Act Suspension Ferrous Gluconate take 1 tablet 2 60tabs D53.9 Haylee Cordero, 11/28/2011 324(38Fe) times a day M.D. mg Tablets Multivitamins 1 by mouth every Unknown Capsules day Percocet 1 tab by mouth Unknown 5-325mg Tablets every 6 hours as needed for pain. Loratadine once a day for Unknown 10mg Capsules allergies as needed Carvedilol take 1 tablet by I42.9 Unknown 25mg Tablets mouth twice a day I10 Tamoxifen Citrate Take 1 Tablet By Mouth Every Unknown 20mg Tablets Day Methotrexate (Anti-Rheumatic) Unknown 2.5mg Tablets History Medications Prednisone Take one 60tabs M06.4 Justyn Gabriel, 08/10/2018 - 10mg Tablets capsule/tablet daily M.D. 09/07/2018 by mouth Methotrexate take 5 30tabs R76.0 Justyn Gabriel, 08/10/2018 - 2.5mg capsules/tablets by M.D. Unknown Tablets mouth once weekly on Fridays Prednisone Please take 4 tabs 90tabs M06.4 Justyn Gabriel, 07/27/2018 - 5mg Tablets daily for 5 days, M.D. 08/10/2018 then 3 tabs daily for 5 days then 2 tabs daily for 5 days than 1 tab daily for 5 days then discontinue Metrogel-Vaginal one applicator 5days Krystyna Ayala, 04/18/2018 - 0.75% vaginally every MD 12/31/2017 Gel night at bedtime x 5 nights Fluconazole one tablet by mouth, 2tabs Krystyna Ayala, 04/17/2018 - 150mg then repeat in 3 MD 04/20/2018 Tablets days Nitrofurantoin Take one tablet by 10caps Sherri 01/05/2018 - Monohyd Macro mouth twice daily Shanta Araujo 03/21/2018 100mg for 5 days. Capsules Fluconazole take one tablet by 2tabs N76.0 Jamal 01/02/2018 - 150mg mouth now. if Shanta Palacios 03/21/2018 Tablets symptoms do not improve take another tablet by mouth 3 days later. Fluconazole one by mouth september 2tabs B37.3 Britt Fitch 09/25/2017 - 150mg repeat in 3 days as N.P. 03/22/2018 Tablets needed Hydrocodone-Acetamino 1 or 2 tablets by 20tabs Jackie Hammond 09/18/2017 - phen mouth every 4-6 MD Yemi 09/20/2017 5-325mg Tablets hours as needed for moderately severe pain Doxycycline Hyclate 1 tablet twice a day 28tabs Haylee Cordero, 2016 - x 14 days M.D. 02/06/2017 100mg Tablets Metronidazole apply intravaginally 1units Haylee Cordero, 10/20/2016 - 0.75% Gel once a day x 7 days M.D. 10/27/2016 did not finish Amlodipine Besylate 1 by mouth every day 90tabs I10 Robert Mendez 05/03/2016 - Shanta Baez 03/21/2018 2.5mg Tablets I42.9 Hydroxyzine HCL 1 tab by mouth every 14tabs F41.9 Haylee Cordero, 2015 - 25mg night as needed for M.D. Unknown Tablets anxiety (pt is not taking) Triamcinolone apply thin film 60ml L30.9 Hubert Geronimo 01/27/2016 - Acetonide topically twice a [employer] 05/03/2016 0.1% Lotion day Doxycycline Hyclate 1 by mouth twice a 20caps J01.90 Haylee Cordero, 03/17 - day M.D. 04/14/2015 100mg Capsules Colace 1 by mouth daily as 30caps K59.09 Haylee Cordero, 02/23/2015 - 100mg Capsules needed for M.D. 01/25/2016 constipation Anusol-HC apply intrarectally 5units K64.9 Haylee Cordero, 02/23/2015 - 25mg every day x 5 days M.D. 04/14/2015 Suppository Lisinopril take 1 tab by mouth 90tabs I42.9 Marybeltaybchevy S. 02/12/2015 - 40mg daily Mike AlfaroDSelina 03/21/2018 Tablets I10 Lisinopril 1 by mouth every 30tabs [facility] S. 11/27/2014 - 30mg Tablets day Shanta Alfaro 02/12/2015 Mebendazole take it once , september 1units 128.9 Haylee Gil, 01/16/2013 - 100mg repeat in 3 wks if M.D. 01/16/2013 Chewtabs symptoms persist Albenza take 2 tab once , 2tabs Haylee Cordero, 01/16/2013 - 200mg Tablets may repeat in 3 M.D. 11/26/2013 wks if symptoms persist Claritin 1 po qd as needed 10caps V15.06 Haylee Cordero, 01/02/2012 - 10mg Capsules M.D. 04/17/2012 Miralax 17 gm qd mixed w/ 238gm 564.09 Roya French, 11/18/2011 - 3350NF Powder 8 oz water/juice M.D. 04/17/2012 once per day Metrolotion apply bid 1units Haylee Cordero, 11/11/2011 - 0.75% Lotion M.D. 08/27/2012 Metamucil Once A Day 30units 564.09 Haylee Cordero, 09/12/2011 - 48.57% Powder M.D. 11/26/2013 Colace 1 tab bid as 30caps 564.09 Haylee Cordero, 09/12/2011 - 100mg Capsules needed for M.D. 11/28/2011 constipation Metrogel apply to face bid 1units 706.1 Haylee Cordero, 07/07/2011 - 1% Gel as needed M.D. 11/28/2011 Trazodone HCL take 1/2 tab by Unknown - 50mg mouth at bedtime 09/21/2018 Tablets as needed Naproxen 1 by mouth twice a Unknown - 250mg Tablets day 08/14/2018 Prochlorperazine 1 by mouth every 4 Unknown - Maleate hours as needed 07/31/2018 5mg Tablets for nausea Zofran take 1 by mouth Unknown - 4mg Tablets every 4 hours as 07/31/2018 needed for nausea Carvedilol 1 tab by mouth I42.9 Unknown - 3.125mg twice a day 07/24/2018 Tablets I10 Lisinopril 1 by mouth 30tabs I42.9 Dalia Bragg, - 10mg every day N.P. 07/24/2018 Tablets I10 Hydrocodone-Acetaminophen 1 or 2 tabs Unknown - 5-325mg Tablets by mouth 03/21/2018 every 6-8 hours as needed for pain Biotin Maximum Strength 1 po qd Unknown - 5000mcg Capsules (OTC) 03/21/2018 Carvedilol take 1 180tab I42.9 Qutaybeh S. - 25mg Tablets tablet by chan Alfaro, 03/21/2018 mouth twice M.D. a day I10 Biotin take one Unknown - 1mg Capsules capsule/tablet daily 08/29/2016 by mouth Macrobid 1 tab by mouth twice a Unknown - 100mg day x 7 days 07/27/2016 Capsules Zithromax one by mouth one per Unknown - 500mg day 07/27/2016 Tablets Red Yeast Rice 1 by mouth twice a day Unknown - 600mg 03/21/2018 Capsules Lisinopril take 1 tablet by mouth 30tabs Qutaybeh S. - 20mg once daily Shanta Alfaro 11/27/2014 Tablets Oxycodone/Acetaminop 1-2 tabs po q 4 hrs 40tabs Unknown - hen prn pain 09/28/2011 5-325mg Tablets Ondansetron Odt po tid prn 20tabs Unknown - 4mg 09/28/2011 Tablets Dispers Anant Aspirin Ec Low 1 po qd Unknown - Dose 03/11/[address] Minocycline HCL 1 po q bid 20caps Unknown - 100mg 07/11/2011 Capsules Ferrous Sulfate 1 po qd Unknown - 01/02/2012 325(65Fe) mg Tablets Digoxin 1 po qd 90tabs Haylee Cordero, - 0.125mg M.D. 03/12/2012 Tablets Lisinopril 1 po qd 30tabs Haylee Cordero, - 20mg M.D. 03/12/2012 Tablets Immunizations CPT Code Status Date Vaccine Lot # [id number] Given 08/14/2018 Pneumococcal Conjugate Vaccine 13 Valent For [id number] Intramuscular Use 47553 Given 02/05/2018 Influenza Virus Vaccine, Quadrivalent, Split, Preservative Free [id number] Given 05/03/2016 Influ Virus Vaccine, Quadrivalent, Split Virus, [place] [id number] [address] Given 04/15/2015 Influenza Virus Vaccine, Quadrivalent, Split, [id number] Preservative Free [id number] Given 04/17/2012 Fluvirin Im [id number] And Older [id number] 67074 Given 01/02/2012 Tdap - Tetanus/Diptheria/Acellular Pertussis [id number] Vital Signs Date Vital Result Comment 09/21/2018 10:13am Height 70 inches 5'10" Weight 167.00 lb Heart Rate 73 /min BP Systolic Sitting 125 mmHg BP Diastolic Sitting 77 mmHg O2 % BldC Oximetry 97 % BMI (Body Mass Index) 24.0 kg/m2 09/11/2018 9:07am Heart Rate 72 /min BP Systolic Sitting 138 mmHg BP Diastolic Sitting 86 mmHg Respiratory Rate 16 /min Body Temperature 97.8 F 09/07/2018 12:51pm Height 70 inches 5'10" Weight 167.38 lb Heart Rate 75 /min BP Systolic Sitting 116 mmHg BP Diastolic Sitting 80 mmHg Pain Level 0 O2 % BldC Oximetry 96 % BMI (Body Mass Index) 24.0 kg/m2 09/06/2018 9:33am Height 70 inches 5'10" Weight 166.00 lb Heart Rate 78 /min BP Systolic 133 mmHg BP Diastolic 84 mmHg O2 % BldC Oximetry 99 % BMI (Body Mass Index) 23.8 kg/m2 Last Menstrual Period [id number] 08/14/2018 9:11am Height 70 inches 5'10" Weight 164.00 lb Heart Rate 71 /min BP Systolic Sitting 114 mmHg BP Diastolic Sitting 78 mmHg O2 % BldC Oximetry 97 % BMI (Body Mass Index) 23.5 kg/m2 08/10/2018 11:24am Height 70 inches 5'10" Weight 169.00 lb Heart Rate 78 /min BP Systolic Sitting 122 mmHg BP Diastolic Sitting 78 mmHg Pain Level 7 O2 % BldC Oximetry 98 % BMI (Body Mass Index) 24.2 kg/m2 07/31/2018 11:12am Heart Rate 82 /min BP Systolic Sitting 123 mmHg in L arm BP Diastolic Sitting 81 mmHg in L arm 07/27/2018 9:53am Height 70 inches 5'10" Weight 165.12 lb Heart Rate 77 /min BP Systolic 130 mmHg BP Diastolic 80 mmHg Pain Level 10 O2 % BldC Oximetry 94 % BMI (Body Mass Index) 23.7 kg/m2 07/24/2018 12:58pm Height 70 inches 5'10" Weight 168.00 lb Heart Rate 85 /min BP Systolic Sitting 131 mmHg BP Diastolic Sitting 84 mmHg Body Temperature 97.3 F O2 % BldC Oximetry 96 % BMI (Body Mass Index) 24.1 kg/m2 05/02/2018 9:35am Height 70 inches 5'10" Weight 170.00 lb Heart Rate 70 /min BP Systolic Sitting 104 mmHg BP Diastolic Sitting 60 mmHg Respiratory Rate 18 /min BMI (Body Mass Index) 24.4 kg/m2 04/17/2018 11:46am Height 70 inches 5'10" Weight 170.00 lb Heart Rate 85 /min BP Systolic 114 mmHg BP Diastolic 70 mmHg O2 % BldC Oximetry 97 % BMI (Body Mass Index) 24.4 kg/m2 Last Menstrual Period [id number] 03/22/2018 3:30pm Weight 174.00 lb with shoes Heart Rate 96 /min BP Systolic Sitting 156 mmHg Rue regular cuff BP Diastolic Sitting 96 mmHg Rue regular cuff Ejection Fraction 30-35 echocardiogram 10/04/17 01/12/2018 11:09am Heart Rate 72 /min BP Systolic 128 mmHg BP Diastolic 72 mmHg Respiratory Rate 16 /min Body Temperature 97.7 F 01/02/2018 3:40pm Height 70 inches 5'10" Weight 175.00 lb Heart Rate 76 /min BP Systolic 146 mmHg BP Diastolic 86 mmHg Body Temperature 96.7 F O2 % BldC Oximetry 98 % BMI (Body Mass Index) 25.1 kg/m2 10/26/2017 8:02am Height 70 inches 5'10" Weight 177.00 lb Heart Rate 81 /min Respiratory Rate 16 /min Pain Level 9 BMI (Body Mass Index) 25.4 kg/m2 10/18/2017 2:28pm Height 70 inches 5'10" Weight 177.00 lb w/ shoes Heart Rate 76 /min reg BP Systolic Sitting 120 mmHg Lue BP Diastolic Sitting 70 mmHg Lue Respiratory Rate 14 /min BMI (Body Mass Index) 25.4 kg/m2 10/12/2017 8:32am Height 70 inches 5'10" Weight 175.00 lb BP Systolic 130 mmHg BP Diastolic 80 mmHg Respiratory Rate 16 /min Body Temperature 97.9 F Pain Level 9 BMI (Body Mass Index) 25.1 kg/m2 10/04/2017 8:45am Heart Rate 80 /min BP Systolic 136 mmHg BP Diastolic 90 mmHg Respiratory Rate 16 /min Body Temperature 98.1 F 09/25/2017 3:40pm Weight 180.00 lb Heart Rate 67 /min BP Systolic 150 mmHg BP Diastolic 91 mmHg Body Temperature 97.8 F O2 % BldC Oximetry 100 % 09/21/2017 3:14pm Height 70 inches 5'10" Weight 179.00 lb w/ shoes Heart Rate 78 /min BP Systolic Sitting 138 mmHg lue reg cuff BP Diastolic Sitting 80 mmHg lue reg cuff Respiratory Rate 18 /min BMI (Body Mass Index) 25.7 kg/m2 Ejection Fraction 40-45% echo 06/08/16 09/18/2017 9:49am Height 70 inches 5'10" Weight 177.00 lb Heart Rate 90 /min BP Systolic Sitting 130 mmHg BP Diastolic Sitting 90 mmHg Respiratory Rate 16 /min Body Temperature 98.0 F BMI (Body Mass Index) 25.4 kg/m2 09/15/2017 2:21pm Height 70 inches 5'10" Weight 177.50 lb w/shoes Heart Rate 76 /min BP Systolic Sitting 148 mmHg L/A Reg Cuff BP Diastolic Sitting 100 mmHg L/A Reg Cuff BMI (Body Mass Index) 25.5 kg/m2 Ejection Fraction 40-45% echo 06/08/2016 09/04/2017 3:54pm Height 70 inches 5'10" Weight 179.00 lb Heart Rate 78 /min BP Systolic 118 mmHg BP Diastolic 78 mmHg Respiratory Rate 16 /min Body Temperature 98.2 F BMI (Body Mass Index) 25.7 kg/m2 04/10/2017 2:50pm Height 70 inches 5'10" Weight 180.00 lb w/ shoes Heart Rate 60 /min irregular BP Systolic Sitting 122 mmHg lue reg cuff BP Diastolic Sitting 72 mmHg lue reg cuff Respiratory Rate 18 /min BMI (Body Mass Index) 25.8 kg/m2 Ejection Fraction 40-45% echo 06/08/2016 03/03/2017 3:02pm Heart Rate 64 /min Respiratory Rate 16 /min Body Temperature 98.4 F 01/31/2017 3:11pm Weight 180.50 lb with brace and shoes Heart Rate 67 /min BP Systolic Sitting 128 mmHg BP Diastolic Sitting 82 mmHg Body Temperature 98.3 F O2 % BldC Oximetry 98 % 01/31/2017 8:50am Height 70 inches 5'10" Weight 166.00 lb BP Systolic 120 mmHg BP Diastolic 76 mmHg Respiratory Rate 18 /min Pain Level 5 BMI (Body Mass Index) 23.8 kg/m2 01/13/2017 1:02pm Height 70 inches 5'10" Weight 177.00 lb with shoes Heart Rate 76 /min BP Systolic Sitting 146 mmHg LA reg cuff BP Diastolic Sitting 82 mmHg LA reg cuff BMI (Body Mass Index) 25.4 kg/m2 Ejection Fraction 40% - 45% echo 06/08/16 10/26/2016 1:38pm Weight 178.00 lb Heart Rate 80 /min BP Systolic Sitting 124 mmHg BP Diastolic Sitting 82 mmHg Body Temperature 98.4 F O2 % BldC Oximetry 99 % 10/19/2016 8:31am Height 70 inches 5'10" Weight 177.25 lb Heart Rate 70 /min BP Systolic 146 mmHg BP Diastolic 76 mmHg Body Temperature 97.6 F O2 % BldC Oximetry 99 % BMI (Body Mass Index) 25.4 kg/m2 09/14/2016 1:24pm Height 70 inches 5'10" Weight 177.00 lb w/ shoes Heart Rate 80 /min reg BP Systolic Sitting 130 mmHg Lue, reg BP Diastolic Sitting 70 mmHg Lue, reg Respiratory Rate 16 /min BMI (Body Mass Index) 25.4 kg/m2 08/30/2016 2:45pm Height 70 inches 5'10" Weight 178.50 lb Heart Rate 80 /min BP Systolic 130 mmHg BP Diastolic 80 mmHg Body Temperature 97.7 F O2 % BldC Oximetry 96 % BMI (Body Mass Index) 25.6 kg/m2 07/27/2016 3:25pm BP Systolic Sitting 138 mmHg BP Diastolic Sitting 94 mmHg 07/27/2016 2:46pm Weight 177.38 lb Heart Rate 81 /min BP Systolic Sitting 185 mmHg BP Diastolic Sitting 128 mmHg Body Temperature 98.3 F O2 % BldC Oximetry 98 % 06/07/2016 2:55pm Weight 172.75 lb with boots Heart Rate 84 /min BP Systolic Sitting 128 mmHg LA reg cuff BP Diastolic Sitting 92 mmHg LA reg cuff Ejection Fraction 35% - 40% echo 09/23/15 05/03/2016 10:03am Weight 172.00 lb Heart Rate 78 /min BP Systolic Sitting 160 mmHg BP Diastolic Sitting 100 mmHg BP Systolic Standing 154 mmHg Pt's BP machine BP Diastolic Standing 106 mmHg Pt's BP machine Body Temperature 98.7 F O2 % BldC Oximetry 99 % 01/27/2016 1:53pm Height 70 inches 5'10" Weight 166.00 lb Heart Rate 73 /min BP Systolic Sitting 150 mmHg BP Diastolic Sitting 80 mmHg Body Temperature 97.9 F O2 % BldC Oximetry 95 % BMI (Body Mass Index) 23.8 kg/m2 01/25/2016 4:10pm Weight 167.50 lb Heart Rate 84 /min BP Systolic Sitting 150 mmHg BP Diastolic Sitting 80 mmHg Body Temperature 99.5 F Pt took tylenol at 1:30pm O2 % BldC Oximetry 94 % 11/02/2015 3:13pm Height 70 inches 5'10" Weight 166.00 lb w/shoes Heart Rate 80 /min BP Systolic Sitting 158 mmHg LA reg cuff BP Diastolic Sitting 98 mmHg LA reg cuff BMI (Body Mass Index) 23.8 kg/m2 Ejection Fraction 35-40% Echo 09/23/15 10/02/2015 2:34pm Height 70 inches 5'10" Weight 166.00 lb Heart Rate 72 /min BP Systolic Sitting 130 mmHg BP Diastolic Sitting 80 mmHg Respiratory Rate 16 /min Pain Level 3 BMI (Body Mass Index) 23.8 kg/m2 09/25/2015 2:11pm Height 70 inches 5'10" Weight 166.25 lb with shoes Heart Rate 76 /min BP Systolic Sitting 138 mmHg LA, regular BP Diastolic Sitting 88 mmHg LA, regular BMI (Body Mass Index) 23.9 kg/m2 Ejection Fraction 35-40% echo 09/23/15 07/06/2015 3:53pm Height 70 inches 5'10" Weight 166.00 lb Heart Rate 73 /min BP Systolic 150 mmHg BP Diastolic 100 mmHg Body Temperature 98.2 F O2 % BldC Oximetry 100 % BMI (Body Mass Index) 23.8 kg/m2 05/05/2015 3:25pm Height 70 inches 5'10" Weight 172.00 lb Heart Rate 67 /min BP Systolic 148 mmHg BP Diastolic 101 mmHg Body Temperature 98.0 F BMI (Body Mass Index) 24.7 kg/m2 04/15/2015 10:42am Height 69.75 inches 5'9.75" Weight 163.50 lb Heart Rate 72 /min BP Systolic Sitting 132 mmHg BP Diastolic Sitting 84 mmHg Body Temperature 97.2 F O2 % BldC Oximetry 98 % BMI (Body Mass Index) 23.6 kg/m2 03/17/2015 11:33am Weight 167.75 lb Heart Rate 70 /min BP Systolic 156 mmHg her machine BP Diastolic 103 mmHg her machine BP Systolic Sitting 143 mmHg our machine BP Diastolic Sitting 90 mmHg our machine Body Temperature 98.2 F O2 % BldC Oximetry 98 % 02/23/2015 11:38am Weight 171.25 lb Heart Rate 67 /min BP Systolic Sitting 151 mmHg BP Diastolic Sitting 91 mmHg Body Temperature 96.8 F 02/12/2015 2:27pm Height 70 inches 5'10" Weight 172.00 lb w/ shoes Heart Rate 80 /min BP Systolic Sitting 152 mmHg LA, reg BP Diastolic Sitting 100 mmHg LA, reg BMI (Body Mass Index) 24.7 kg/m2 Ejection Fraction 30-35% 11/07/14 ECHO 11/27/2014 9:18am Height 70 inches 5'10" Weight 168.00 lb Heart Rate 70 /min BP Systolic Sitting 164 mmHg LA, reg BP Diastolic Sitting 104 mmHg LA, reg BMI (Body Mass Index) 24.1 kg/m2 Ejection Fraction 30-35% 11/07/14 echo 10/24/2014 10:09am Height 70 inches 5'10" Weight 168.00 lb Heart Rate 74 /min BP Systolic 150 mmHg LA reg BP Diastolic 110 mmHg LA reg BMI (Body Mass Index) 24.1 kg/m2 Ejection Fraction 35-40% 02/21/14 ECHO 07/29/2014 3:07pm Weight 170.00 lb Heart Rate 78 /min BP Systolic Sitting 140 mmHg BP Diastolic Sitting 94 mmHg Body Temperature 98.3 F 03/12/2014 2:59pm Height 70 inches 5'10" Weight 168.50 lb Heart Rate 76 /min BP Systolic Sitting 144 mmHg LA reg cuff BP Diastolic Sitting 94 mmHg LA reg cuff Respiratory Rate 14 /min BMI (Body Mass Index) 24.2 kg/m2 02/07/2014 2:53pm Height 70 inches 5'10" Weight 167.75 lb w/shoes Heart Rate 76 /min BP Systolic Sitting 124 mmHg BP Diastolic Sitting 74 mmHg Respiratory Rate 15 /min BMI (Body Mass Index) 24.1 kg/m2 12/26/2013 12:58pm Height 70 inches 5'10" Weight 166.00 lb Heart Rate 76 /min BP Systolic Sitting 122 mmHg BP Diastolic Sitting 80 mmHg BMI (Body Mass Index) 23.8 kg/m2 11/26/2013 2:44pm Height 70 inches 5'10" Weight 164.00 lb Heart Rate 80 /min BP Systolic Sitting 146 mmHg BP Diastolic Sitting 90 mmHg Body Temperature 98.1 F BMI (Body Mass Index) 23.5 kg/m2 01/16/2013 10:54am Weight 174.00 lb Heart Rate 63 /min BP Systolic Sitting 132 mmHg BP Diastolic Sitting 89 mmHg 10/04/2012 2:51pm Height 70 inches 5'10" Weight 179.25 lb Heart Rate 68 /min Regular BP Systolic Sitting 152 mmHg BP Diastolic Sitting 90 mmHg BMI (Body Mass Index) 25.7 kg/m2 09/26/2012 4:02pm Weight 182.50 lb Heart Rate 73 /min BP Systolic Sitting 148 mmHg BP Diastolic Sitting 98 mmHg 08/27/2012 11:06am Height 70 inches 5'10" Weight 181.25 lb Heart Rate 76 /min BP Systolic 130 mmHg BP Diastolic 84 mmHg BP Systolic Sitting 138 mmHg BP Diastolic Sitting 96 mmHg BMI (Body Mass Index) 26.0 kg/m2 04/17/2012 9:28am Height 69.50 inches 5'9.50" Weight 177.00 lb Heart Rate 78 /min BP Systolic Sitting 149 mmHg BP Diastolic Sitting 99 mmHg BMI (Body Mass Index) 25.8 kg/m2 03/12/2012 10:27am Height 69.50 inches 5'9.50" Weight 175.00 lb Heart Rate 80 /min BP Systolic 154 mmHg BP Diastolic 98 mmHg BMI (Body Mass Index) 25.5 kg/m2 01/25/2012 9:46am Height 69.50 inches 5'9.50" Weight 177.00 lb Heart Rate 68 /min BP Systolic Sitting 140 mmHg BP Diastolic Sitting 100 mmHg BMI (Body Mass Index) 25.8 kg/m2 01/02/2012 11:32am Height 69.50 inches 5'9.50" Weight 176.00 lb Heart Rate 62 /min BP Systolic Sitting 142 mmHg BP Diastolic Sitting 100 mmHg BMI (Body Mass Index) 25.6 kg/m2 11/28/2011 2:55pm Height 69.50 inches 5'9.50" Weight 176.00 lb Heart Rate 68 /min BP Systolic Sitting 142 mmHg BP Diastolic Sitting 102 mmHg BMI (Body Mass Index) 25.6 kg/m2 11/18/2011 11:31am Height 69.50 inches 5'9.50" Weight 175.00 lb Heart Rate 70 /min BP Systolic 110 mmHg 2nd time BP Diastolic 80 mmHg 2nd time BP Systolic Sitting 132 mmHg BP Diastolic Sitting 100 mmHg BMI (Body Mass Index) 25.5 kg/m2 11/09/2011 9:16am Height 69.50 inches 5'9.50" Weight 172.75 lb Heart Rate 64 /min Regular BP Systolic Sitting 160 mmHg BP Diastolic Sitting 110 mmHg BMI (Body Mass Index) 25.1 kg/m2 09/28/2011 9:04am Height 69.50 inches 5'9.50" Weight 173.00 lb Heart Rate 65 /min BP Systolic Sitting 150 mmHg BP Diastolic Sitting 100 mmHg BMI (Body Mass Index) 25.2 kg/m2 09/12/2011 10:39am Height 69.50 inches 5'9.50" Weight 172.00 lb Heart Rate 76 /min BP Systolic Sitting 122 mmHg BP Diastolic Sitting 90 mmHg BMI (Body Mass Index) 25.0 kg/m2 09/05/2011 11:41am Height 69.50 inches 5'9.50" Weight 173.00 lb Heart Rate 72 /min BP Systolic Sitting 148 mmHg r BP Diastolic Sitting 92 mmHg r BP Diastolic Standing 92 mmHg BMI (Body Mass Index) 25.2 kg/m2 08/15/2011 11:38am Height 69.50 inches 5'9.50" Weight 177.00 lb Heart Rate 74 /min BP Systolic Sitting 120 mmHg l BP Diastolic Sitting 72 mmHg l BMI (Body Mass Index) 25.8 kg/m2 07/07/2011 9:51am Height 69.50 inches 5'9.50" Weight 175.00 lb Heart Rate 76 /min BP Systolic Sitting 134 mmHg BP Diastolic Sitting 76 mmHg BMI (Body Mass Index) 25.5 kg/m2 Results Test Date Facility Test Result H/L Range Note Laboratory test 09/07/2018 [facility] Erythrocyte Sed 24 mm/Hr N 0-29 [address] [place] [address] [phone] C Reactive Protein < 1.00 mg/L N <8.01 2 Comp Metabolic Panel 09/07/2018 [facility] Sodium 137 mmol/L N 135-[address] [place] [address] [phone] Potassium 4.0 mmol/L N 3.5-5.0 Chloride 104 mmol/L N 101-111 Co2 Carbon Dioxide 28 mmol/L N 22-32 Anion Gap 5 mmol/L N 2-11 Glucose 97 mg/dL N 70-100 Blood Urea Nitrogen 21 mg/dL N 6-24 Creatinine 0.67 mg/dL N 0.51-0.95 BUN/Creatinine Ratio 31.3 High 8-20 Calcium 9.8 mg/dL N 8.6-10.3 Total Protein 7.7 g/dL N 6.4-8.9 Albumin 4.3 g/dL N 3.2-5.2 Globulin 3.4 g/dL N 2-4 Albumin/Globulin Ratio 1.3 N 1-3 Total Bilirubin 0.40 mg/dL N 0.2-1.0 Alkaline Phosphatase 40 U/L N 34-104 Alt 13 U/L N 7-52 Ast 16 U/L N 13-39 Egfr Non- 92.4 >60 Egfr 111.8 >60 3 CBC Auto Diff 09/07/2018 [facility] White Blood 4.7 10^3/uL N 3.5-10.[address] [place] [address] [phone] Red Blood Count 4.19 10^6/uL N 3.70-4.87 Hemoglobin 11.5 g/dL Low 12.0-16.0 Hematocrit 34 % N 33-41 Mean Corpuscular Volume 82 fL N 80-97 Mean Corpuscular Hemoglobin 27 pg N 27-31 Mean Corpuscular HGB Conc 34 g/dL N 31-36 Red Cell Distribution Width 15 % N 10.5-15 Platelet Count 241 10^3/uL N 150-450 Mean Platelet Volume 6.6 fL Low 7.4-10.4 Abs Neutrophils 3.7 10^3/uL N 1.5-7.7 Abs Lymphocytes 0.6 10^3/uL Low 1.0-4.8 Abs Monocytes 0.3 10^3/uL N 0-0.8 Abs Eosinophils 0 10^3/uL N 0-0.6 Abs Basophils 0 10^3/uL N 0-0.2 Abs Nucleated RBC 0 10^3/uL Granulocyte % 79.4 % Lymphocyte % 13.0 % Monocyte % 6.2 % Eosinophil % 1.0 % Basophil % 0.4 % Nucleated Red Blood Cells % 0 Laboratory 09/06/2018 [facility] Gardnerella/Yeast: SEE RESULT 4 test finding [address] [place] [address] [phone] GC/Chlamydia 09/06/2018 [facility] Chlamydia trachomatis Negative Negative Amplified Rna [address] [place] [address] [phone] Neisseria gonorrhoeae (GC) Rna Negative Negative Laboratory test 09/06/2018 [facility] Trichomonas Negative Negative [address] [place] [address] [phone] Lipid Profile 07/28/2018 [facility] Triglycerides 55 mg/dL 6 (Trig/Chol/HDL) [address] [place] [address] [phone] Cholesterol 236 mg/dL 7 HDL Cholesterol 55.7 mg/dL 8 LDL Cholesterol 169 mg/dL 9 CBC Auto Diff 07/28/2018 [facility] White Blood 3.7 10^3/uL N 3.5-10.[address] [place] [address] [phone] Red Blood Count 3.96 10^6/uL Low 4.00-5.40 Hemoglobin 11.1 g/dL Low 12.0-16.0 Hematocrit 33 % Low 35-47 Mean Corpuscular Volume 83 fL N 80-97 Mean Corpuscular Hemoglobin 28 pg N 27-31 Mean Corpuscular HGB Conc 34 g/dL N 31-36 Red Cell Distribution Width 13 % N 10.5-15 Platelet Count 313 10^3/uL N 150-450 Mean Platelet Volume 6.6 fL Low 7.4-10.4 Abs Neutrophils 2.8 10^3/uL N 1.5-7.7 Abs Lymphocytes 0.6 10^3/uL Low 1.0-4.8 Abs Monocytes 0.3 10^3/uL N 0-0.8 Abs Eosinophils 0 10^3/uL N 0-0.6 Abs Basophils 0 10^3/uL N 0-0.2 Abs Nucleated RBC 0 10^3/uL Granulocyte % 76.2 % Lymphocyte % 15.6 % Monocyte % 7.5 % Eosinophil % 0.2 % Basophil % 0.5 % Nucleated Red Blood Cells % 0.2 Basic Metabolic Panel 07/28/2018 [facility] Sodium 137 mmol/L N 135-[address] [place] [address] [phone] Potassium 3.8 mmol/L N 3.5-5.0 Chloride 103 mmol/L N 101-111 Co2 Carbon Dioxide 26 mmol/L N 22-32 Anion Gap 8 mmol/L N 2-11 Glucose 91 mg/dL N 70-100 Blood Urea Nitrogen 15 mg/dL N 6-24 Creatinine 0.47 mg/dL Low 0.51-0.95 BUN/Creatinine Ratio 31.9 High 8-20 Calcium 10.0 mg/dL N 8.6-10.3 Egfr Non- 139.2 >60 Egfr 168.4 >60 10 Laboratory test 07/28/2018 [facility] Angiotensin 14 U/L 8 - 53 [address] [place] [address] [phone] Aso (Antistreptolysin O) Titer Negative IU/mL <200 Iu/mL 12 Creatine Kinase(CK) 257 U/L High 10-223 Anca AB Ser If 07/28/2018 [facility] C-Anca Negative Negative [address] [place] [address] [phone] P-Anca Positive Abnormal Negative 13 Cardiolipin 07/28/2018 [facility] Phospholipid Ab 20.9 MPL High 14 Igg/Igm [address] IgM, [place] [address] [phone] Phospholipid Ab IgG < 9.4 GPL 15 Laboratory test 07/28/2018 [facility] Sickle Cell Negative Negative finding [address] Screen [place], [place] [id number] [phone] Complement C3 158 mg/dL 75 - 175 16 Complement C4 27 mg/dL 14 - 40 17 Anti Double Stranded Dna AB <12.3 IU/mL 18 Cryoglobulin & 07/28/2018 [facility] Cryoglobulin Negative Negative [address] %[place] [address] [phone] Cryofibrinogen Negative Negative 20 Laboratory test 07/28/2018 [facility] Lyme Screen Negative Negative finding [address] W/ [place] [address] WB [phone] C Reactive Protein 17.16 mg/L High <8.01 Erythrocyte Sed Rate 67 mm/Hr High 0-30 21 Rheumatoid Factor 49 IU/mL High <15 Cyclic Citrullinated Pep Igg >250.0 U Abnormal 22 Body Fluid Cell 07/27/2018 [facility] Body Fluid Synovial Fluid Count [address] [place] [address] [phone] Body Fluid Appearance Cloudy Body Fluid Color Yellow Body Fluid Volume 4 mL Body Fluid WBC 2099 /mcL N 23 Body Fluid RBC 1627 /mcL Body Fluid Neutrophils 15 % Body Fluid Lymph 75 % Body Fluid [place] 10 % Body Fluid Total Cells Counted 100 Fluid Reviewed By MD (SEE NOTE) 24 Laboratory test 07/27/2018 [facility] Body Fluid SEE RESULT [address] C&S BELOW [place], [place] [id number] [phone] Miscellaneous Test See Comment 26 Laboratory test 05/18/2018 [facility] Culture Genital & SEE RESULT [address] Sensitivity BELOW [place], [place] [id number] [phone] Laboratory test 05/18/2018 [facility] Culture Genital & SEE RESULT [address] Sensitivity BELOW [place], [place] [id number] [phone] Laboratory test 05/18/2018 [facility] Culture Genital & SEE RESULT [address] [place] [address] [phone] Laboratory test 05/18/2018 [facility] Fungal SEE RESULT [address] [place] [address] [phone] Laboratory test 05/18/2018 [facility] Culture Genital & SEE RESULT [address] [place] [address] [phone] CBC Auto Diff 05/03/2018 [facility] White Blood Count 3.4 10^3/ uL Low 3.5- [address] 10.8 [place] [address] [phone] Red Blood Count 3.05 10^6/uL Low 4.00-5.40 Hemoglobin 9.0 g/dL Low 12.0-16.0 Hematocrit 27 % Low 35-47 Mean Corpuscular Volume 88 fL N 80-97 Mean Corpuscular Hemoglobin 30 pg N 27-31 Mean Corpuscular HGB Conc 33 g/dL N 31-36 Red Cell Distribution Width 18 % High 10.5-15 Platelet Count 263 10^3/uL N 150-450 Mean Platelet Volume 6.5 fL Low 7.4-10.4 Abs Neutrophils 2.4 10^3/uL N 1.5-7.7 Abs Lymphocytes 0.6 10^3/uL Low 1.0-4.8 Abs Monocytes 0.4 10^3/uL N 0-0.8 Abs Eosinophils 0 10^3/uL N 0-0.6 Abs Basophils 0 10^3/uL N 0-0.2 Abs Nucleated RBC 0 10^3/uL Granulocyte % 70.6 % Lymphocyte % 18.2 % Monocyte % 10.7 % Eosinophil % 0.1 % Basophil % 0.4 % Nucleated Red Blood Cells % 0.3 Comp Metabolic Panel 05/03/2018 [facility] Sodium 138 mmol/L N 135-[address] [place] [address] [phone] Potassium 3.7 mmol/L N 3.5-5.0 Chloride 105 mmol/L N 101-111 Co2 Carbon Dioxide 27 mmol/L N 22-32 Anion Gap 6 mmol/L N 2-11 Glucose 118 mg/dL High 70-100 Blood Urea Nitrogen 13 mg/dL N 6-24 Creatinine 0.60 mg/dL N 0.51-0.95 BUN/Creatinine Ratio 21.7 High 8-20 Calcium 9.4 mg/dL N 8.6-10.3 Total Protein 6.6 g/dL N 6.4-8.9 Albumin 4.0 g/dL N 3.2-5.2 Globulin 2.6 g/dL N 2-4 Albumin/Globulin Ratio 1.5 N 1-3 Total Bilirubin 0.60 mg/dL N 0.2-1.0 Alkaline Phosphatase 37 U/L N 34-104 Alt 36 U/L N 7-52 Ast 33 U/L N 13-39 Egfr Non- 105.4 >60 Egfr 127.5 >60 32 Laboratory 04/17/2018 [facility] Gardnerella/Yeast: SEE RESULT 33, 34 test finding [address] [place] [address] [phone] Cytology SEE RESULT BELOW 35 Urine Culture And 04/17/2018 [facility] Urine SEE RESULT 36 , [address] [place] [place] [address] [phone] CBC Auto Diff 04/13/2018 [facility] White Blood 5.5 10^3/uL N 3.5-[address] Count 0.8 [place], [place] [id number] [phone] Red Blood Count 3.59 10^6/uL Low 4.00-5.40 Hemoglobin 10.5 g/dL Low 12.0-16.0 Hematocrit 31 % Low 35-47 Mean Corpuscular Volume 87 fL N 80-97 Mean Corpuscular Hemoglobin 29 pg N 27-31 Mean Corpuscular HGB Conc 34 g/dL N 31-36 Red Cell Distribution Width 19 % High 10.5-15 Platelet Count 268 10^3/uL N 150-450 Mean Platelet Volume 7.2 fL Low 7.4-10.4 Abs Neutrophils 5.0 10^3/uL N 1.5-7.7 Abs Lymphocytes 0.5 10^3/uL Low 1.0-4.8 Abs Monocytes 0.1 10^3/uL N 0-0.8 Abs Eosinophils 0 10^3/uL N 0-0.6 Abs Basophils 0 10^3/uL N 0-0.2 Abs Nucleated RBC 0 10^3/uL Granulocyte % 90.5 % High 38-83 Lymphocyte % 8.2 % Low 25-47 Monocyte % 1.2 % N 0-7 Eosinophil % 0 % N 0-6 Basophil % 0.1 % N 0-2 Nucleated Red Blood Cells % 0.3 Comp Metabolic Panel 04/13/2018 [facility] Sodium 136 mmol/L N 135-[address] [place] [address] [phone] Potassium 3.9 mmol/L N 3.5-5.0 Chloride 104 mmol/L N 101-111 Co2 Carbon Dioxide 26 mmol/L N 22-32 Anion Gap 6 mmol/L N 2-11 Glucose 163 mg/dL High 70-100 Blood Urea Nitrogen 17 mg/dL N 6-24 Creatinine 0.59 mg/dL N 0.51-0.95 BUN/Creatinine Ratio 28.8 High 8-20 Calcium 10.3 mg/dL N 8.6-10.3 Total Protein 7.7 g/dL N 6.4-8.9 Albumin 4.6 g/dL N 3.2-5.2 Globulin 3.1 g/dL N 2-4 Albumin/Globulin Ratio 1.5 N 1-3 Total Bilirubin 0.50 mg/dL N 0.2-1.0 Alkaline Phosphatase 43 U/L N 34-104 Alt 36 U/L N 7-52 Ast 28 U/L N 13-39 Egfr Non- 107.5 >60 Egfr 130.0 >60 38 GC/Chlamydia 04/02/2018 [facility] Chlamydia Negative Negative Amplified Rna [address] [place] [address] [phone] Neisseria gonorrhoeae (GC) Rna Negative Negative Urine Culture And 04/02/2018 [facility] Urine Culture SEE RESULT [address] [place] [address] [phone] Urinalysis Profile 04/02/2018 [facility] Urine Color Yellow [address] [place] [address] [phone] Urine Appearance Cloudy Urine Specific Panther 1.010 N 1.010-1.030 Urine pH 6.0 N 5-9 Urine Urobilinogen Negative Negative Urine Ketones Negative Negative Urine Protein Negative Negative Urine Leukocytes Negative Negative Urine Blood Negative Negative Urine Nitrite Negative Negative Urine Bilirubin Negative Negative Urine Glucose Negative Negative Laboratory test 03/23/2018 [facility] Hemoglobin A1c 5.8 % High 4.0-5.6 [address] (Glyco HGB) [place] [address] [phone] Comp Metabolic 03/23/2018 [facility] Sodium 138 N 135-[address] mmol/[place] [address] [phone] Potassium 3.8 mmol/L N 3.5-5.0 Chloride 104 mmol/L N 101-111 Co2 Carbon Dioxide 27 mmol/L N 22-32 Anion Gap 7 mmol/L N 2-11 Glucose 147 mg/dL High 70-100 Blood Urea Nitrogen 17 mg/dL N 6-24 Creatinine 0.59 mg/dL N 0.51-0.95 BUN/Creatinine Ratio 28.8 High 8-20 Calcium 10.0 mg/dL N 8.6-10.3 Total Protein 7.6 g/dL N 6.4-8.9 Albumin 4.5 g/dL N 3.2-5.2 Globulin 3.1 g/dL N 2-4 Albumin/Globulin Ratio 1.5 N 1-3 Total Bilirubin 0.50 mg/dL N 0.2-1.0 Alkaline Phosphatase 44 U/L N 34-104 Alt 64 U/L High 7-52 Ast 34 U/L N 13-39 Egfr Non- 107.5 >60 Egfr 130.0 >60 41 CBC Auto Diff 03/23/2018 [facility] White Blood 3.6 10^3/uL N 3.5-10.[address] [place] [address] [phone] Red Blood Count 3.47 10^6/uL Low 4.00-5.40 Hemoglobin 10.1 g/dL Low 12.0-16.0 Hematocrit 29 % Low 35-47 Mean Corpuscular Volume 85 fL N 80-97 Mean Corpuscular Hemoglobin 29 pg N 27-31 Mean Corpuscular HGB Conc 34 g/dL N 31-36 Red Cell Distribution Width 19 % High 10.5-15 Platelet Count 256 10^3/uL N 150-450 Mean Platelet Volume 6.6 um3 Low 7.4-10.4 Abs Neutrophils 3.1 10^3/uL N 1.5-7.7 Abs Lymphocytes 0.4 10^3/uL Low 1.0-4.8 Abs Monocytes 0.1 10^3/uL N 0-0.8 Abs Eosinophils 0 10^3/uL N 0-0.6 Abs Basophils 0 10^3/uL N 0-0.2 Abs Nucleated RBC 0 10^3/uL Granulocyte % 85.8 % High 38-83 Lymphocyte % 12.1 % Low 25-47 Monocyte % 2.0 % N 0-7 Eosinophil % 0 % N 0-6 Basophil % 0.1 % N 0-2 Nucleated Red Blood Cells % 0.5 Comp Metabolic Panel 03/02/2018 [facility] Sodium 137 mmol/L N 135-[address] [place] [address] [phone] Potassium 3.8 mmol/L N 3.5-5.0 Chloride 105 mmol/L N 101-111 Co2 Carbon Dioxide 26 mmol/L N 22-32 Anion Gap 6 mmol/L N 2-11 Glucose 161 mg/dL High 70-100 Blood Urea Nitrogen 14 mg/dL N 6-24 Creatinine 0.58 mg/dL N 0.51-0.95 BUN/Creatinine Ratio 24.1 High 8-20 Calcium 10.1 mg/dL N 8.6-10.3 Total Protein 7.6 g/dL N 6.4-8.9 Albumin 4.5 g/dL N 3.2-5.2 Globulin 3.1 g/dL N 2-4 Albumin/Globulin Ratio 1.5 N 1-3 Total Bilirubin 0.40 mg/dL N 0.2-1.0 Alkaline Phosphatase 46 U/L N 34-104 Alt 38 U/L N 7-52 Ast 24 U/L N 13-39 Egfr Non- 109.6 >60 Egfr 132.6 >60 42 CBC Auto Diff 03/02/2018 [facility] White Blood 4.3 10^3/uL N 3.5-10.[address] [place] [address] [phone] Red Blood Count 3.63 10^6/uL Low 4.00-5.40 Hemoglobin 10.3 g/dL Low 12.0-16.0 Hematocrit 30 % Low 35-47 Mean Corpuscular Volume 83 fL N 80-97 Mean Corpuscular Hemoglobin 28 pg N 27-31 Mean Corpuscular HGB Conc 34 g/dL N 31-36 Red Cell Distribution Width 17 % High 10.5-15 Platelet Count 316 10^3/uL N 150-450 Mean Platelet Volume 6.9 um3 Low 7.4-10.4 Abs Neutrophils 3.8 10^3/uL N 1.5-7.7 Abs Lymphocytes 0.4 10^3/uL Low 1.0-4.8 Abs Monocytes 0.1 10^3/uL N 0-0.8 Abs Eosinophils 0 10^3/uL N 0-0.6 Abs Basophils 0 10^3/uL N 0-0.2 Abs Nucleated RBC 0 10^3/uL Granulocyte % 88.5 % High 38-83 Lymphocyte % 9.7 % Low 25-47 Monocyte % 1.5 % N 0-7 Eosinophil % 0 % N 0-6 Basophil % 0.3 % N 0-2 Nucleated Red Blood Cells % 0.3 Laboratory test 02/27/2018 [facility] Culture Genital & SEE RESULT [address] [place] [address] [phone] CBC Auto Diff 02/09/2018 [facility] White Blood Count 4.7 10^3/ uL N 3.5-[address] 0.8 [place] [address] [phone] Red Blood Count 3.61 10^6/uL Low 4.00-5.40 Hemoglobin 10.4 g/dL Low 12.0-16.0 Hematocrit 30 % Low 35-47 Mean Corpuscular Volume 83 fL N 80-97 Mean Corpuscular Hemoglobin 29 pg N 27-31 Mean Corpuscular HGB Conc 35 g/dL N 31-36 Red Cell Distribution Width 15 % N 10.5-15 Platelet Count 432 10^3/uL N 150-450 Mean Platelet Volume 6.8 um3 Low 7.4-10.4 Abs Neutrophils 4.1 10^3/uL N 1.5-7.7 Abs Lymphocytes 0.5 10^3/uL Low 1.0-4.8 Abs Monocytes 0.1 10^3/uL N 0-0.8 Abs Eosinophils 0 10^3/uL N 0-0.6 Abs Basophils 0 10^3/uL N 0-0.2 Abs Nucleated RBC 0 10^3/uL Granulocyte % 86.7 % High 38-83 Lymphocyte % 10.7 % Low 25-47 Monocyte % 2.4 % N 0-7 Eosinophil % 0 % N 0-6 Basophil % 0.2 % N 0-2 Nucleated Red Blood Cells % 0.3 Comp Metabolic Panel 02/09/2018 [facility] Sodium 137 mmol/L N 135-[address] [place] [address] [phone] Potassium 3.6 mmol/L N 3.5-5.0 Chloride 103 mmol/L N 101-111 Co2 Carbon Dioxide 25 mmol/L N 22-32 Anion Gap 9 mmol/L N 2-11 Glucose 179 mg/dL High 70-100 Blood Urea Nitrogen 18 mg/dL N 6-24 Creatinine 0.74 mg/dL N 0.51-0.95 BUN/Creatinine Ratio 24.3 High 8-20 Calcium 10.0 mg/dL N 8.6-10.3 Total Protein 7.9 g/dL N 6.4-8.9 Albumin 4.5 g/dL N 3.2-5.2 Globulin 3.4 g/dL N 2-4 Albumin/Globulin Ratio 1.3 N 1-3 Total Bilirubin 0.40 mg/dL N 0.2-1.0 Alkaline Phosphatase 55 U/L N 34-104 Alt 24 U/L N 7-52 Ast 18 U/L N 13-39 Egfr Non- 82.7 >60 Egfr 100.1 >60 44 CBC Auto 01/19/2018 [facility] White Blood 12.6 10^3/uL High 3.5-10.[address] [place] [address] [phone] Red Blood Count 3.97 10^6/uL Low 4.00-5.40 Hemoglobin 11.2 g/dL Low 12.0-16.0 Hematocrit 33 % Low 35-47 Mean Corpuscular Volume 83 fL N 80-97 Mean Corpuscular Hemoglobin 28 pg N 27-31 Mean Corpuscular HGB Conc 34 g/dL N 31-36 Red Cell Distribution Width 15 % N 10.5-15 Platelet Count 377 10^3/uL N 150-450 Mean Platelet Volume 6.9 um3 Low 7.4-10.4 Abs Neutrophils 11.2 10^3/uL High 1.5-7.7 Abs Lymphocytes 1.0 10^3/uL N 1.0-4.8 Abs Monocytes 0.3 10^3/uL N 0-0.8 Abs Eosinophils 0 10^3/uL N 0-0.6 Abs Basophils 0 10^3/uL N 0-0.2 Abs Nucleated RBC 0 10^3/uL Granulocyte % 89.0 % High 38-83 Lymphocyte % 7.7 % Low 25-47 Monocyte % 2.8 % N 0-7 Eosinophil % 0.1 % N 0-6 Basophil % 0.4 % N 0-2 Nucleated Red Blood Cells % 0 Comp Metabolic Panel 01/19/2018 [facility] Sodium 137 mmol/L N 135-[address] [place] [address] [phone] Potassium 3.6 mmol/L N 3.5-5.0 Chloride 104 mmol/L N 101-111 Co2 Carbon Dioxide 25 mmol/L N 22-32 Anion Gap 8 mmol/L N 2-11 Glucose 142 mg/dL High 70-100 Blood Urea Nitrogen 16 mg/dL N 6-24 Creatinine 0.73 mg/dL N 0.51-0.95 BUN/Creatinine Ratio 21.9 High 8-20 Calcium 10.0 mg/dL N 8.6-10.3 Total Protein 8.6 g/dL N 6.4-8.9 Albumin 4.5 g/dL N 3.2-5.2 Globulin 4.1 g/dL High 2-4 Albumin/Globulin Ratio 1.1 N 1-3 Total Bilirubin 0.40 mg/dL N 0.2-1.0 Alkaline Phosphatase 54 U/L N 34-104 Alt 16 U/L N 7-52 Ast 18 U/L N 13-39 Egfr Non- 84.0 >60 Egfr 101.7 >60 45 Laboratory test 01/17/2018 [facility] HCG 1.34 mIU/mL [address] [place] [address] [phone] Urine Culture And 01/02/2018 [facility] Urine Culture SEE RESULT [address] [place] [address] [phone] GC/Chlamydia 01/02/2018 [facility] Chlamydia Negative Negative Amplified Rna [address] [place] [address] Rna [phone] Neisseria gonorrhoeae (GC) Rna Negative Negative Ua Routine 01/02/2018 [facility] Ua Specific Panther 1.000 Ua PH 6 Ua Color light yellow Ua Appera clear Ua WBC large Ua Protein trace Ua Glucose neg Ua Ketones neg Ua Bilirubin neg Ua Urobilinogen neg Ua Nitrite neg Ua Occult Blood trace Order 09/15/2017 [facility] EKG <pending> Laboratory test 08/28/2017 [facility] Surgical SEE RESULT 48, [address] [place] [address] [phone] Inr/Protime 08/14/2017 [facility] Inr 0.92 N 0.77- [address] 1.02 [place] [address] [phone] Laboratory test 08/14/2017 [facility] Partial Thrombo 29.9 seconds N 26.0- finding [address] Time PTT 36.3 [place] [address] [phone] Lactic Acid 0.7 mmol/L N 0.5-2.0 50 Type & Screen 08/14/2017 [facility] Patient Blood Type O Positive [address] [place] [address] [phone] Antibody Screen NEGATIVE Laboratory test 08/14/2017 [facility] Blood Culture SEE RESULT [address] [place] [address] [phone] Urinalysis 08/14/2017 [facility] Urine Appearance Cloudy Profile [address] [place] [address] [phone] Urine Specific Panther 1.009 Low 1.010-1.030 Urine pH 7.0 N 5-9 Urine Urobilinogen Negative Negative Urine Ketones Negative Negative Urine Protein 1+(30 mg/dL) Abnormal Negative Urine Leukocytes Negative Negative Urine Blood 3+ Abnormal Negative Urine Nitrite Negative Negative Urine Bilirubin Negative Negative Urine Glucose Negative Negative Urine White Blood Cell Absent Absent Urine Red Blood Cell 3+(>10/hpf) Abnormal Absent Urine Bacteria Absent Absent Urine Squamous Epithelial Cell Present Abnormal Absent Urine Color Red Abnormal Laboratory test finding 08/14/2017 [facility] Amylase 37 U/L N 29-[address] [place] [address] [phone] Lipase 26 U/L N 11.0-82.0 CBC Auto Diff 08/14/2017 [facility] White Blood 5.3 10^3/uL N 3.5-10.[address] [place] [address] [phone] Red Blood Count 3.74 10^6/uL Low 4.0-5.4 Hemoglobin 11.0 g/dL Low 12.0-16.0 Hematocrit 31 % Low 35-47 Mean Corpuscular Volume 83 fL N 80-97 Mean Corpuscular Hemoglobin 29 pg N 27-31 Mean Corpuscular HGB Conc 35 g/dL N 31-36 Red Cell Distribution Width 13 % N 10.5-15 Platelet Count 259 10^3/uL N 150-450 Mean Platelet Volume 7 um3 Low 7.4-10.4 Abs Neutrophils 3.7 10^3/uL N 1.5-7.7 Abs Lymphocytes 1.0 10^3/uL N 1.0-4.8 Abs Monocytes 0.4 10^3/uL N 0-0.8 Abs Eosinophils 0.2 10^3/uL N 0-0.6 Abs Basophils 0 10^3/uL N 0-0.2 Abs Nucleated RBC 0 10^3/uL Granulocyte % 69.9 % N 38-83 Lymphocyte % 18.6 % Low 25-47 Monocyte % 7.7 % High 0-7 Eosinophil % 3.1 % N 0-6 Basophil % 0.7 % N 0-2 Nucleated Red Blood Cells % 0 Comp Metabolic Panel 08/14/2017 [facility] Sodium 135 mmol/L N 133-[address] [place] [address] [phone] Potassium 3.5 mmol/L N 3.5-5.0 Chloride 101 mmol/L N 101-111 Co2 Carbon Dioxide 29 mmol/L N 22-32 Anion Gap 5 mmol/L N 2-11 Glucose 93 mg/dL N 70-100 Blood Urea Nitrogen 20 mg/dL N 6-24 Creatinine 0.77 mg/dL N 0.51-0.95 BUN/Creatinine Ratio 26.0 High 8-20 Calcium 10.2 mg/dL N 8.6-10.3 Total Protein 8.5 g/dL N 6.4-8.9 Albumin 4.4 g/dL N 3.2-5.2 Globulin 4.1 g/dL High 2-4 Albumin/Globulin Ratio 1.1 N 1-3 Total Bilirubin 0.30 mg/dL N 0.2-1.0 Alkaline Phosphatase 42 U/L N 34-104 Alt 15 U/L N 7-52 Ast 18 U/L N 13-39 Egfr Non- 79.0 >60 Egfr 101.6 >60 52 CBC Auto Diff 08/11/2017 [facility] White Blood 3.9 10^3/uL N 3.5-10.[address] [place] [address] [phone] Red Blood Count 3.98 10^6/uL Low 4.0-5.4 Hemoglobin 11.4 g/dL Low 12.0-16.0 Hematocrit 33 % Low 35-47 Mean Corpuscular Volume 84 fL N 80-97 Mean Corpuscular Hemoglobin 29 pg N 27-31 Mean Corpuscular HGB Conc 34 g/dL N 31-36 Red Cell Distribution Width 13 % N 10.5-15 Platelet Count 269 10^3/uL N 150-450 Mean Platelet Volume 7 um3 Low 7.4-10.4 Abs Neutrophils 2.1 10^3/uL N 1.5-7.7 Abs Lymphocytes 1.1 10^3/uL N 1.0-4.8 Abs Monocytes 0.4 10^3/uL N 0-0.8 Abs Eosinophils 0.1 10^3/uL N 0-0.6 Abs Basophils 0 10^3/uL N 0-0.2 Abs Nucleated RBC 0 10^3/uL Granulocyte % 55.1 % N 38-83 Lymphocyte % 29.3 % N 25-47 Monocyte % 10.8 % High 0-7 Eosinophil % 3.6 % N 0-6 Basophil % 1.2 % N 0-2 Nucleated Red Blood Cells % 0.1 Laboratory test 08/11/2017 [facility] Partial 29.7 seconds N 26.0-36.3 [address] [address] PTT [phone] Inr/Protime 08/11/2017 [facility] Inr 0.98 N 0.77-1.[address] [place] [address] [phone] Comp Metabolic 08/11/2017 [facility] Sodium 134 mmol/L N 133- [address] [place] [address] [phone] Potassium 3.6 mmol/L N 3.5-5.0 Chloride 102 mmol/L N 101-111 Co2 Carbon Dioxide 25 mmol/L N 22-32 Anion Gap 7 mmol/L N 2-11 Glucose 90 mg/dL N 70-100 Blood Urea Nitrogen 16 mg/dL N 6-24 Creatinine 0.77 mg/dL N 0.51-0.95 BUN/Creatinine Ratio 20.8 High 8-20 Calcium 9.9 mg/dL N 8.6-10.3 Total Protein 8.1 g/dL N 6.4-8.9 Albumin 4.2 g/dL N 3.2-5.2 Globulin 3.9 g/dL N 2-4 Albumin/Globulin Ratio 1.1 N 1-3 Total Bilirubin 0.50 mg/dL N 0.2-1.0 Alkaline Phosphatase 37 U/L N 34-104 Alt 13 U/L N 7-52 Ast 17 U/L N 13-39 Egfr Non- 79.0 >60 Egfr 101.6 >60 55 Laboratory test 08/11/2017 [facility] HCG < 0.60 [address] mIU/[place] [address] [phone] Basic Metabolic 06/02/2017 [facility] Sodium 132 mmol/L Low 133-[address] [place] [address] [phone] Potassium 3.8 mmol/L N 3.5-5.0 Chloride 102 mmol/L N 101-111 Co2 Carbon Dioxide 24 mmol/L N 22-32 Anion Gap 6 mmol/L N 2-11 Glucose 109 mg/dL High 70-100 Blood Urea Nitrogen 18 mg/dL N 6-24 Creatinine 0.70 mg/dL N 0.51-0.95 BUN/Creatinine Ratio 25.7 High 8-20 Calcium 9.6 mg/dL N 8.6-10.3 Egfr Non- 88.6 >60 Egfr 113.9 >60 57 Ua Routine 01/31/2017 [facility] Ua Specific Panther 1.015 Ua PH 5 Ua Color light yellow Ua Appera clear Ua WBC - Ua Protein - Ua Glucose norm Ua Ketones - Ua Bilirubin - Ua Urobilinogen norm Ua Nitrite - Ua Occult Blood - Basic Metabolic 11/23/2016 [facility] Sodium 132 mmol/L Low 133-[address] [place] [address] [phone] Potassium 4.3 mmol/L N 3.5-5.0 Chloride 102 mmol/L N 101-111 Co2 Carbon Dioxide 27 mmol/L N 22-32 Anion Gap 3 mmol/L N 2-11 Glucose 102 mg/dL High 70-100 Blood Urea Nitrogen 18 mg/dL N 6-24 Creatinine 0.78 mg/dL N 0.51-0.95 BUN/Creatinine Ratio 23.1 High 8-20 Calcium 9.7 mg/dL N 8.6-10.3 Egfr Non- 78.2 N >60 Egfr 100.5 N >60 58 Lipid Profile 11/23/2016 [facility] Triglycerides 54 mg/dL N 59 (Trig/Chol/HDL) [address] [place] [address] [phone] Cholesterol 210 mg/dL N 60 HDL Cholesterol 65.9 mg/dL N 61 LDL Cholesterol 133 mg/dL N 62 HIV 1/2 AB 11/23/2016 [facility] HIV 1 2 Nonreactive N Nonreactive [address] [place] [address] [phone] Ua Routine 10/19/2016 [facility] Ua Specific 1.000 Panther Ua PH 7 Ua Color LIGHT YELLOW Ua Appera CLEAR Ua WBC NEGATIVE Ua Protein NEGATIVE Ua Glucose NORMAL Ua Ketones NEGATIVE Ua Bilirubin NEGATIVE Ua Urobilinogen NORMAL Ua Nitrite NEGATIVE Ua Occult Blood NEGATIVE Laboratory 10/19/2016 [facility] Gardnerella/Yeast: SEE RESULT 64, [address] [place] [address] [phone] Trichomonas Vaginalis Rna Negative N Negative 66 GC/Chlamydia 10/19/2016 [facility] Chlamydia Negative N Negative Amplified Rna [address] [place] [address] [phone] Neisseria gonorrhoeae (GC) Rna Negative N Negative Laboratory test 10/19/2016 [facility] Test negative finding Urine Laboratory test 08/18/2016 [facility] Amylase 47 U/L N 29-[address] [place] [address] [phone] Lipase 33 U/L N 11.0-82.0 C Reactive Protein < 1.00 mg/L N < 5.00 67 Lactic Acid 0.4 mmol/L Low 0.5-2.0 68 HCG < 0.60 mIU/mL N 69 Comp Metabolic Panel 08/18/2016 [facility] Sodium 133 mmol/L N 133-[address] [place] [address] [phone] Potassium 3.8 mmol/L N 3.5-5.0 Chloride 103 mmol/L N 101-111 Co2 Carbon Dioxide 25 mmol/L N 22-32 Anion Gap 5 mmol/L N 2-11 Glucose 97 mg/dL N 70-100 Blood Urea Nitrogen 13 mg/dL N 6-24 Creatinine 0.84 mg/dL N 0.51-0.95 BUN/Creatinine Ratio 15.5 N 8-20 Calcium 9.9 mg/dL N 8.6-10.3 Total Protein 8.3 g/dL N 6.4-8.9 Albumin 4.3 g/dL N 3.2-5.2 Globulin 4.0 g/dL N 2-4 Albumin/Globulin Ratio 1.1 N 1-3 Total Bilirubin 0.70 mg/dL N 0.2-1.0 Alkaline Phosphatase 33 U/L Low 34-104 Alt 17 U/L N 7-52 Ast 18 U/L N 13-39 Egfr Non- 71.8 N >60 Egfr 92.3 N >60 70 CBC Auto Diff 08/18/2016 [facility] White Blood 3.5 10^3/uL N 3.5-10.[address] [place] [address] [phone] Red Blood Count 4.09 10^6/uL N 4.0-5.4 Hemoglobin 11.9 g/dL Low 12.0-16.0 Hematocrit 35 % N 35-47 Mean Corpuscular Volume 85 fL N 80-97 Mean Corpuscular Hemoglobin 29 pg N 27-31 Mean Corpuscular HGB Conc 34 g/dL N 31-36 Red Cell Distribution Width 13 % N 10.5-15 Platelet Count 263 10^3/uL N 150-450 Mean Platelet Volume 7 um3 Low 7.4-10.4 Abs Neutrophils 1.7 10^3/uL N 1.5-7.7 Abs Lymphocytes 1.2 10^3/uL N 1.0-4.8 Abs Monocytes 0.4 10^3/uL N 0-0.8 Abs Eosinophils 0.2 10^3/uL N 0-0.6 Abs Basophils 0 10^3/uL N 0-0.2 Abs Nucleated RBC 0 10^3/uL N Granulocyte % 49.4 % N 38-83 Lymphocyte % 33.1 % N 25-47 Monocyte % 10.4 % High 1-9 Eosinophil % 5.7 % N 0-6 Basophil % 1.4 % N 0-2 Nucleated Red Blood Cells % 0.1 N Urinalysis Profile 08/18/2016 [facility] Urine Color Yellow N [address] [place] [address] [phone] Urine Appearance Cloudy N Urine Specific Panther 1.010 N 1.010-1.030 Urine pH 8.0 N 5-9 Urine Urobilinogen Negative N Negative Urine Ketones Negative N Negative Urine Protein Negative N Negative Urine Leukocytes Negative N Negative Urine Blood Negative N Negative Urine Nitrite Negative N Negative Urine Bilirubin Negative N Negative Urine Glucose Negative N Negative Laboratory 08/18/2016 [facility] Lactic Acid 0.4 mmol/L Low 0.5-2.0 71 test finding [address] [place], [place] [phone] Laboratory 08/18/2016 [facility] Gardnerella/Ye SEE RESULT 72, test finding [address] ast: Vaginal BELOW 73 [place] [address] Dna [phone] GC/Chlamydia 08/18/2016 [facility] Chlamydia Negative N Negative Amplified Rna [address] [place] [address] Rna [phone] Neisseria gonorrhoeae (GC) Rna Negative N Negative CBC Auto Diff 06/04/2016 [facility] White Blood 5.9 10^3/uL N 3.5-10.[address] [place] [address] [phone] Red Blood Count 4.18 10^6/uL N 4.0-5.4 Hemoglobin 11.8 g/dL Low 12.0-16.0 Hematocrit 36 % N 35-47 Mean Corpuscular Volume 85 fL N 80-97 Mean Corpuscular Hemoglobin 28 pg N 27-31 Mean Corpuscular HGB Conc 33 g/dL N 31-36 Red Cell Distribution Width 13 % N 10.5-15 Platelet Count 257 10^3/uL N 150-450 Mean Platelet Volume 7 um3 Low 7.4-10.4 Abs Neutrophils 3.7 10^3/uL N 1.5-7.7 Abs Lymphocytes 1.4 10^3/uL N 1.0-4.8 Abs Monocytes 0.5 10^3/uL N 0-0.8 Abs Eosinophils 0.3 10^3/uL N 0-0.6 Abs Basophils 0 10^3/uL N 0-0.2 Abs Nucleated RBC 0 10^3/uL N Granulocyte % 62.1 % N 38-83 Lymphocyte % 24.6 % Low 25-47 Monocyte % 8.4 % N 1-9 Eosinophil % 4.3 % N 0-6 Basophil % 0.6 % N 0-2 Nucleated Red Blood Cells % 0 N Comp Metabolic Panel 06/04/2016 [facility] Sodium 128 mmol/L Low 133-[address] [place] [address] [phone] Potassium 3.7 mmol/L N 3.5-5.0 Chloride 105 mmol/L N 101-111 Co2 Carbon Dioxide 25 mmol/L N 22-32 Anion Gap -2 mmol/L Low 2-11 Glucose 103 mg/dL High 70-100 Blood Urea Nitrogen 19 mg/dL N 6-24 Creatinine 0.76 mg/dL N 0.51-0.95 BUN/Creatinine Ratio 25.0 High 8-20 Calcium 10.2 mg/dL N 8.6-10.3 Total Protein 8.3 g/dL N 6.4-8.9 Albumin 4.5 g/dL N 3.2-5.2 Globulin 3.8 g/dL N 2-4 Albumin/Globulin Ratio 1.2 N 1-3 Total Bilirubin 0.40 mg/dL N 0.2-1.0 Alkaline Phosphatase 35 U/L N 34-104 Alt 16 U/L N 7-52 Ast 16 U/L N 13-39 Egfr Non- 80.9 N >60 Egfr 104.0 N >60 74 Laboratory test 06/04/2016 [facility] C Reactive 4.17 mg/L N < 5.00 [address] [place] [address] [phone] Urinalysis 06/04/2016 [facility] Urine Color Sher N Profile [address] [place] [address] [phone] Urine Appearance Cloudy N Urine Specific Panther 1.012 N 1.010-1.030 Urine pH 6.0 N 5-9 Urine Urobilinogen Negative N Negative Urine Ketones Negative N Negative Urine Protein Negative N Negative Urine Leukocytes 3+ Abnormal Negative Urine Blood 1+ Abnormal Negative * * Abnormal Negative 76 Urine Nitrite Positive Abnormal Negative Urine Bilirubin Negative N Negative Urine Glucose Negative N Negative Urine White Blood Cell 3+(>20/hpf) Abnormal Absent Urine Red Blood Cell 1+(3-5/hpf) Abnormal Absent Urine Bacteria 1+ Abnormal Absent Urine Squamous Epithelial Cell Present Abnormal Absent Laboratory 06/04/2016 [facility] Gardnerella/Yeast: SEE RESULT 77 test finding [address] [place] [address] [phone] Laboratory 06/04/2016 [facility] Trichomonas Negative N Negative 78 test finding [address] [place] [address] [phone] GC/Chlamydia 06/04/2016 [facility] Chlamydia Negative N Negative Amplified Rna [address] [place] [address] [phone] Neisseria gonorrhoeae (GC) Rna Negative N Negative Urine Culture And 06/04/2016 [facility] Urine Culture SEE RESULT [address] [place] [address] [phone] CBC Auto Diff 05/07/2016 [facility] White Blood 4.4 10^3/uL N 3.5-[address] Count 0.8 [place] [address] [phone] Red Blood Count 4.12 10^6/uL N 4.0-5.4 Hemoglobin 11.9 g/dL Low 12.0-16.0 Hematocrit 34 % Low 35-47 Mean Corpuscular Volume 83 fL N 80-97 Mean Corpuscular Hemoglobin 29 pg N 27-31 Mean Corpuscular HGB Conc 35 g/dL N 31-36 Red Cell Distribution Width 13 % N 10.5-15 Platelet Count 270 10^3/uL N 150-450 Mean Platelet Volume 7 um3 Low 7.4-10.4 Abs Neutrophils 2.3 10^3/uL N 1.5-7.7 Abs Lymphocytes 1.6 10^3/uL N 1.0-4.8 Abs Monocytes 0.4 10^3/uL N 0-0.8 Abs Eosinophils 0.1 10^3/uL N 0-0.6 Abs Basophils 0 10^3/uL N 0-0.2 Abs Nucleated RBC 0 10^3/uL N Granulocyte % 51.4 % N 38-83 Lymphocyte % 35.5 % N 25-47 Monocyte % 8.7 % N 1-9 Eosinophil % 3.4 % N 0-6 Basophil % 1.0 % N 0-2 Nucleated Red Blood Cells % 0 N Laboratory test 05/07/2016 [facility] TSH (Thyroid 0.23 Low 0.34-5.60 [address] Stim Horm) mcIU/[place] [address] [phone] Comp Metabolic 05/07/2016 [facility] Sodium 133 mmol/L N 133- [address] [place] [address] [phone] Potassium 4.2 mmol/L N 3.5-5.0 Chloride 102 mmol/L N 101-111 Co2 Carbon Dioxide 26 mmol/L N 22-32 Anion Gap 5 mmol/L N 2-11 Glucose 82 mg/dL N 70-100 Blood Urea Nitrogen 20 mg/dL N 6-24 Creatinine 0.78 mg/dL N 0.51-0.95 BUN/Creatinine Ratio 25.6 High 8-20 Calcium 9.5 mg/dL N 8.6-10.3 Total Protein 7.9 g/dL N 6.4-8.9 Albumin 4.3 g/dL N 3.2-5.2 Globulin 3.6 g/dL N 2-4 Albumin/Globulin Ratio 1.2 N 1-3 Total Bilirubin 0.60 mg/dL N 0.2-1.0 Alkaline Phosphatase 34 U/L N 34-104 Alt 16 U/L N 7-52 Ast 19 U/L N 13-39 Egfr Non- 78.5 N >60 Egfr 101.0 N >60 82 Basic Metabolic Panel 01/26/2016 [facility] Sodium 135 mmol/L N 133-[address] [place] [address] [phone] Potassium 3.9 mmol/L N 3.5-5.0 Chloride 102 mmol/L N 101-111 Co2 Carbon Dioxide 28 mmol/L N 22-32 Anion Gap 5 mmol/L N 2-11 Blood Urea Nitrogen 15 mg/dL N 6-24 Creatinine 0.80 mg/dL N 0.51-0.95 BUN/Creatinine Ratio 18.8 N 8-20 Calcium 9.8 mg/dL N 8.6-10.3 Egfr Non- 76.2 N >60 Egfr 98.0 N >60 83 Lipid Profile 01/26/2016 [facility] Triglycerides 49 mg/dL N 84 (Trig/Chol/HDL) [address] [place] [address] [phone] Cholesterol 171 mg/dL N 85 HDL Cholesterol 65.0 mg/dL N 86 LDL Cholesterol 96 mg/dL N 87 Laboratory test 01/26/2016 [facility] Glucose 85 mg/dL N 70- [address] [place] [address] [phone] Laboratory test 01/25/2016 [facility] HCG < 0.60 N 88 finding 101 mIU/[place] [address] [phone] Blood Urea Nitrogen BUN 16 mg/dL N 6-24 Creatinine 01/25/2016 [facility] Creatinine 0.85 mg/dL N 0.51- 0.[address] [place] [address] [phone] Egfr Non- 71.1 N >60 Egfr 91.4 N >60 89 Ua Routine 03/17/2015 [facility] Ua Specific Panther 1.005 Ua PH 8.5 Ua Color sher Ua Appera clear Ua WBC neg Ua Protein neg Ua Glucose neg Ua Ketones trace Ua Bilirubin neg Ua Urobilinogen normal Ua Nitrite neg Ua Occult Blood large 200+ Laboratory test 02/24/2015 [facility] Hemoglobin A1c 5.6 % N Less than [address] (Glyco HGB) 6.0 [place] [address] [phone] Comp Metabolic 02/24/2015 [facility] Sodium 136 N 133-[address] mmol/[place] [address] [phone] Potassium 4.0 mmol/L N 3.5-5.0 Chloride 103 mmol/L N 101-111 Co2 Carbon Dioxide 26 mmol/L N 22-32 Anion Gap 7 mmol/L N 2-11 Glucose 106 mg/dL High 70-100 Blood Urea Nitrogen 16 mg/dL N 6-24 Creatinine 0.86 mg/dL N 0.51-0.95 BUN/Creatinine Ratio 18.6 N 8-20 Calcium 9.3 mg/dL N 8.6-10.3 Total Protein 8.1 g/dL N 6.4-8.9 Albumin 4.5 g/dL N 3.2-5.2 Globulin 3.6 g/dL N 2-4 Albumin/Globulin Ratio 1.3 N 1-3 Total Bilirubin 0.40 mg/dL N 0.2-1.0 Alkaline Phosphatase 33 U/L Low 34-104 Alt 13 U/L N 7-52 Ast 17 U/L N 13-39 Egfr Non- 70.4 N >60 Egfr 90.6 N >60 91 CBC Auto 02/24/2015 [facility] White Blood 2.8 10^3/uL Low 4.8 -10.[address] [place] [address] [phone] Red Blood Count 3.83 10^6/uL Low 4.0-5.4 Hemoglobin 10.9 g/dL Low 12.0-16.0 Hematocrit 33 % Low 35-47 Mean Corpuscular Volume 86 fL N 80-97 Mean Corpuscular Hemoglobin 28 pg N 27-31 Mean Corpuscular HGB Conc 33 g/dL N 31-36 Red Cell Distribution Width 13 % N 10.5-15 Platelet Count 247 10^3/uL N 150-450 Mean Platelet Volume 7 um3 Low 7.4-10.4 Abs Neutrophils 1.1 10^3/uL Low 1.5-7.7 Abs Lymphocytes 1.2 10^3/uL N 1.0-4.8 Abs Monocytes 0.3 10^3/uL N 0-0.8 Abs Eosinophils 0.2 10^3/uL N 0-0.6 Abs Basophils 0 10^3/uL N 0-0.2 Abs Nucleated RBC 0 10^3/uL N Granulocyte % 38.4 % N 38-83 Lymphocyte % 42.7 % N 25-47 Monocyte % 12.4 % High 1-9 Eosinophil % 5.6 % N 0-6 Basophil % 0.9 % N 0-2 Nucleated Red Blood Cells % 0.1 N Comp Metabolic Panel 12/10/2013 [facility] Sodium 136 mmol/L N 133-[address] [place] [address] [phone] Potassium 4.0 mmol/L N 3.7-5.6 Chloride 104 mmol/L N 101-111 Co2 Carbon Dioxide 27 mmol/L N 22-32 Anion Gap 5 mmol/L N 2-11 Glucose 85 mg/dL N 70-100 Blood Urea Nitrogen 16 mg/dL N 6-24 Creatinine 0.81 mg/dL N 0.51-0.95 BUN/Creatinine Ratio 19.8 N 8-20 Calcium 9.9 mg/dL N 8.6-10.3 Total Protein 8.3 g/dL N 6.4-8.9 Albumin 4.7 g/dL N 3.2-5.2 Globulin 3.6 g/dL N 2-4 Albumin/Globulin Ratio 1.3 N 1-3 Total Bilirubin 0.70 mg/dL N 0.2-1.0 Alkaline Phosphatase 32 U/L Low 34-104 Alt 12 U/L N 7-52 Ast 16 U/L N 13-39 Egfr Non- 75.8 N >60 Egfr 97.5 N >60 93 Lipid Profile 12/10/2013 [facility] Triglycerides 49 mg/dL N 94 (Trig/Chol/HDL) [address] [place] [address] [phone] Cholesterol 196 mg/dL N 95 HDL Cholesterol 60.5 mg/dL N 96 LDL Cholesterol 126 mg/dL N 97 CBC Auto 12/10/2013 [facility] White Blood 3.6 10^3/uL Low 4.8 -10.[address] [place] [address] [phone] Red Blood Count 3.89 10^6/uL Low 4.0-5.4 Hemoglobin 11.6 g/dL Low 12.0-16.0 Hematocrit 33 % Low 35-47 Mean Corpuscular Volume 84 fL N 80-97 Mean Corpuscular Hemoglobin 30 pg N 27-31 Mean Corpuscular HGB Conc 36 g/dL N 31-36 Red Cell Distribution Width 13 % N 10.5-15 Platelet Count 278 10^3/uL N 150-450 Mean Platelet Volume 7 um3 Low 7.4-10.4 Abs Neutrophils 2.0 10^3/uL N 1.5-7.7 Abs Lymphocytes 1.2 10^3/uL N 1.0-4.8 Abs Monocytes 0.3 10^3/uL N 0-0.8 Abs Eosinophils 0.1 10^3/uL N 0-0.6 Abs Basophils 0 10^3/uL N 0-0.2 Abs Nucleated RBC 0 10^3/uL N Granulocyte % 55.3 % N 38-83 Lymphocyte % 32.5 % N 25-47 Monocyte % 8.0 % N 1-9 Eosinophil % 3.2 % N 0-6 Basophil % 1.0 % N 0-2 Nucleated Red Blood Cells % 0.1 N Urinalysis W/Microscopic 09/21/2012 [facility] Urine Color Yellow [address] [place] [address] [phone] Urine Appearance Clear Urine Specific Panther 1.010 1.010-1.030 Urine Esterase Negative Negative Urine Nitrate Negative Negative Urine Urobilinogen Negative E.U./dL Negative Urine Protein Negative mg/dL Negative Urine pH 7.0 5-9 Urine Blood Negative Negative Urine Ketones Negative mg/dL Negative Urine Bilirubin Negative Negative Urine Glucose Negative mg/dL Negative Urine Epithelial Cells 1+ Squamous /hpf None Seen Lipid Profile 09/21/2012 [facility] Triglycerides 29 mg/dL Low 40-200 (Trig/Chol/HDL) [address] [place] [address] [phone] Cholesterol 207 mg/dL High Less than 200 HDL Cholesterol 53 mg/dL 40-60 98 Cholesterol/HDL Ratio 3.9 Average 1-4.44 LDL Cholesterol 148.2 mg/dL High Less Than 100 99 CBC Auto 09/21/2012 [facility] White Blood 4.0 10^3/uL Low 4.8 -10.[address] [place] [address] [phone] Red Blood Count 3.77 10^6/uL Low 4.0-5.4 [...] Red Blood Cells % 0.1 Laboratory test 09/21/2012 [facility] TSH (Thyroid 0.46 0.34- 5.60 [address] Stimulating miu/[place] [address] Horm) [phone] Comp Metabolic 09/21/2012 [facility] Sodium 136 mmol/L 133- [address] [place], [place] [id number] [phone] Potassium 4.0 mmol/L 3.5-5.0 Chloride 105 mmol/L [...] Egfr Non- 77.2 >60 Egfr 99.3 >60 101 Laboratory test 08/27/2012 [facility] Cytology RUN DATE: [address] 08/31/ <[place] [address] NOTE> [phone] Human Papilloma 08/27/2012 [facility] Human CERV Virus [address] [place] [address] Source [phone] Human Papillomavirus High Risk Negative Negative 103 Laboratory test 04/17/2012 [facility] Affirm (SEE NOTE) 104 finding [address] [place] [address] Probe [phone] CBC Auto Diff 01/24/2012 [facility] White Blood 4.4 CUMM Low 4.8-[address] Count .8 [place] [address] [phone] Red Cell Count 3.79 CUMM Low 4.2-5.4 [...] Eosinophils 0.1 0-0.6 Abs Basophils 0 0-0.2 Retic Count 01/24/2012 [facility] Reticulocyte Count 1.27 % 0.5-1.[address] [place] [address] [phone] Corrected Retic 0.9 % 0.5-1.5 Retic Index 0.6 Mean Retic Volume 104.6 Immature Retic Fraction 0.36 RBC Retic Count 3.79 CUMM Low 4.6-6.2 Hematocrit For Retic Coun 32 % Low 35-47 Laboratory test finding 01/24/2012 [facility] LDH 141 U/L 95- [address] [place] [address] [phone] Vitamin B12 777 pg/mL 180-914 Erythropoietin 8.1 mIU/mL 2.6 - 18.5 105 CBC Auto Diff 01/04/2012 [facility] White Blood 5.0 CUMM 4.8- 10.8 [address] [place] [address] [phone] Red Cell Count 3.69 CUMM Low 4.2-5.4 Hemoglobin 11.2 g/dL Low 12.0-16.0 Hematocrit 32 % Low 35-47 Mean Corpuscular Volume 86 um3 79-97 Mean Corpuscular Hemoglob 30 pg 27-31 Mean Corpuscular HGB Cone 36 g/dL 32-36 Redcell Distribution WDTH 13 % 10.5-15 Platelet Count 284 CUMM 150-450 Mean Platelet Volume 6.9 um3 Low 7.4-10.4 Absolute Neutrophil Count 2.9 1.5-7.7 Lipid Profile 01/04/2012 [facility] Triglyceride 67 mg/dL 40- 200 (Trig/Chol/HDL) [address] [place] [address] [phone] Cholesterol 213 mg/dL High Less Than 200 106 High Density Lipoprotein 60 mg/dL 40-60 107 Cholesterol/HDL Ratio 3.55 AVERAGE 1-4.44 Low Density Lipoprotein 140 mg/dL High Less Than 100 108 Laboratory test 01/04/2012 [facility] TSH 0.66 0.34-5.60 finding [address] [facility] MIU/[place] [address] [phone] Hemoglobin 01/04/2012 [facility] Hemoglobin A2 2.7 % 2.0-3.3 Electropheresis [address] [place] [address] [phone] Hemoglobin F 0.2 % 0.0-0.9 Hemoglobin A 97.1 % 95.8-98.0 Hemoglobin Variant 0.0 % () 109 HGB Electrophoresis Interp . () 110 Celiac Panel 01/04/2012 [facility] Endomysial Abs Negative Negative 111 [address] [place] [address] [phone] Gliadin Igg <10.0 U () 112 Gliadin Iga <10.0 U () 113 Reticulin AB Negative Negative 114 Manual Differential 01/04/2012 [facility] Polysegmented 53 % 38-[address] [place] [address] [phone] Lymphocyte 39 % 25-47 Monocyte 6 % 0-13 Eosinophil 1 % 0-6 Basophil 1 % 0-2 Laboratory test 01/02/2012 [facility] Cytology <SEE [address] NOTE> [place] [address] [phone] Comp Metabolic 11/28/2011 [facility] Sodium 135 mmol/L 135- Panel [address] [place] [address] [phone] Potassium 4.1 mmol/L 3.5-5.0 Chloride 101 mmol/L 101-111 Co2 (Carbon Dioxide) 27.0 mmol/L 22-32 Anion Gap 7.0 mmol/L 2-11 116 Glucose 98 mg/dL 70-100 BUN 13 mg/dL 6-24 Creatinine 0.7 mg/dL 0.50-1.40 One Over Creatinine 1.42 BUN/Creatinine Ratio 18.6 8-20 Calcium 10.0 mg/dL High 8.1-9.9 Total Protein 7.8 GM/DL 6.2-8.1 Albumin 4.6 GM/DL 3.6-5.4 Globulin 3.2 GM/DL 2-4 Albumin/Globulin Ratio 1.4 1-3 Bilirubin Total 0.6 mg/dL 0.4-1.5 117 Alkaline Phosphatase 37 U/L 30-110 Alt (SGPT) 14 U/L 14-54 Ast (Sgot) 18 U/L 12-42 eGFR Non- 90.5 > 60 eGFR 116.4 > 60 118 Laboratory test 11/28/2011 [facility] Folic Acid 23.3 NG/ML See Below [address] [place] [address] [phone] Vitamin B12 729 pg/mL 180-914 Iron & Iron Binding 11/28/2011 [facility] Iron Total 97 g/dL 28-[address] [place] [address] [phone] Unsaturated Iron Binding 310 g/dL Total Iron Binding Capacity 407 g/dL 250-450 % Iron Saturation 24 % 15-55 Laboratory test 11/28/2011 [facility] Sickle Cell NEGATIVE Negative finding [address] [place] [address] [phone] Laboratory test 11/18/2011 [facility] Ferritin 19 NG/ML 11.0- 307 finding [address] [place] [address] [phone] CBC Auto Diff 11/18/2011 [facility] White Blood 5.0 CUMM 4.8- 10.8 [address] [facility] [place] [address] [phone] Red Cell Count 3.71 CUMM Low 4.2-5.4 [...] 0-0.6 Abs Basophils 0 0-0.2 Laboratory test 08/15/2011 [facility] Ferritin 22 NG/ML 11.0- 307 finding [address] [place] [address] [phone] Vitamin B12 653 pg/mL 180-914 Folic Acid 19.5 NG/ML See Below 120 Iron & Iron Binding 08/15/2011 [facility] Iron Total 99 g/dL 28-170 Capacity [address] [place] [address] [phone] Unsaturated Iron Binding 287 g/dL Total Iron Binding Capacity 386 g/dL 250-450 % Iron Saturation 26 % 15-55 Comp Metabolic Panel 07/07/2011 [facility] Sodium 134 mmol/L Low 135-145 [address] [place] [address] [phone] Potassium 4.3 mmol/L 3.5-5.0 Chloride 102 mmol/L 101-111 Co2 (Carbon Dioxide) 29.0 mmol/L 22-32 Anion Gap 3.0 mmol/L 2-11 121 Glucose 84 mg/dL 70-100 BUN 17 mg/dL 6-24 Creatinine 0.8 mg/dL 0.50-1.40 One Over Creatinine 1.25 BUN/Creatinine Ratio 21.3 High 8-20 Calcium 9.7 mg/dL 8.1-9.9 Total Protein 7.8 GM/DL 6.2-8.1 Albumin 4.5 GM/DL 3.6-5.4 Globulin 3.3 GM/DL 2-4 Albumin/Globulin Ratio 1.4 1-3 Bilirubin Total 0.8 mg/dL 0.4-1.5 122 Alkaline Phosphatase 43 U/L 30-110 Alt (SGPT) 19 U/L 14-54 Ast (Sgot) 20 U/L 12-42 eGFR Non- 77.6 > 60 eGFR 99.8 > 60 123 Laboratory test 07/07/2011 [facility] Digoxin < 0.1 NG/ML Low 0.5-1.[address] [address] [phone] 1 Please check labs today 2 Please check labs today 3 Because ethnic data is not always [...] 5 Kidney failure <15 (or dialysis) 4 SEE RESULT BELOW Name: ONEIDA REESE : [address]: Krystyna Ayala MD Acct: [id number] Unit: [id number] AGE: 53 Location: [facility] Re09/06/18 SEX: F Status: REG REF SPEC: [id number] LATASHA: 09/06/18-[address]: Krystyna Ayala MD REQ: [id number] RECD: 09/06/18 STATUS: COMP _ SOURCE: VAGINAL SPDESC: ORDERED: Nevaeh,Yeast DNA COMMENTS: [id number] Would you like to order Trichomonas Vaginalis testing? Yes Procedure Result Reported Site Gardnerella/Yeast: Vaginal DNA Final 09/07/18- 1342 ML Organism 1 Negative Gardnerella Organism 2 Negative Avril The presence of G. vaginalis, although suggestive, [...] is unknown. The presence or absence of Avril species, or G. vaginalis cannot be used as a test for therapeutic success or failure. * [facility] - Main Lab . END OF REPORT DEPARTMENT OF PATHOLOGY, [address] [place] [address] Silvestre Collier M.D. Director [facility] # [id number] 5 [id number] GC/Chlamydia Source?: Endocervical Trichomonas Source: Endocervical 6 Desirable: <150 Borderline High: 150-199 High: 200-499 Very High: >500 7 Desirable: <200 Borderline High: 200-239 High: >239 8 Low: <40 Desirable: 40-60 High: >60 9 Desirable: <100 Near Optimal: 100-129 Borderline High: 130-159 High: 160-189 Very High: >189 10 Because ethnic data is not always [...] 5 Kidney failure <15 (or dialysis) 11 Test Performed by: [place] [address] 12 Normal values may vary with age, season and geographic area. Titers above upper limits may be indicative of infection, however only a two dilution rise in titer is required to be considered significant. ASO titer will usually rise above upper limits within one week of exposure, increase to peak levels at 3-5 weeks and return to baseline level at 6-12 twelve months. 13 Positive for pANCA pattern by immunofluorescence. Suggest further testing for anti-myeloperoxidase (anti-MPO) antibodies, if clinically indicated. ADDITIONAL INFORMATION This test was developed and its performance characteristics determined by [facility] in a manner consistent with CLIA requirements. This test has not been cleared or approved by the [place]. Food and Drug Administration. Test Performed by: [facility] [employer] [address] [place] [address] 14 Interpretation: Weak Positive (15.0-39.9) REFERENCE VALUE <15.0 (Negative) 15 REFERENCE VALUE <15.0 (Negative) Test Performed by: [place] [id number] Test Performed by: [facility] [employer] [address] [place] [address] 17 Test Performed by: [facility] [employer] [address] [place] [address] 18 REFERENCE VALUE <30.0 (Negative) Test Performed by: [place] [id number] 19 This test is negative at 24 hours. All samples are held and reviewed again at 7 days. If delayed precipitation occurs after 7 days, Immunofixation will be performed and an additional report will follow. 20 Test Performed by: [facility] [address] 21 Test Performed by: [facility] [address] [place] [id number] Silvestre Collier M.D. Director of Laboratory 22 Interpretation: Strong Positive (>=60.0) REFERENCE VALUE <20.0 (Negative) Test Performed by: [facility] - [address] [address] 23 -- REFERENCE VALUE -- Synovial: <150/mcL Peritoneal: <500/mcL Pleural: <500/mcL Pericardial: <500/mcL 24 Mixed acute and chronic inflammation. No evidence of malignancy. Reviewed by Kortney Lugo MD 25 SEE RESULT BELOW Name: ONEIDA REESE Harpreet : [address]: Justyn Gabriel MD Acct: [id number] Unit: [id number] AGE: 53 Location: [facility] Re07/27/18 SEX: F Status: REG REF SPEC: [id number] LATASHA: 07/27/181140 SUBM DR: Justyn Gabriel MD REQ: [id number] RECD: 07/27/18 STATUS: COMP _ SOURCE: JOINT FLUI SPDESC:KNEE RIGHT ORDERED: BF Cult/GS, MRSA/SA SSTI Procedure Result Reported Site Body Fluid Gram Stain Final 07/28/18815 ML 4+ Neutrophils 4+ Nucleated Cells No Organisms Seen Preparation By Cytospin Smear Body Fluid Culture Final 07/31/18- 958 ML No Growth Day 4 MRSA/S. aureus SSTI PCR Final 07/27/18- 2130 ML Organism 1 MRSA NEGATIVE Organism 2 S.AUREUS NEGATIVE * ML - Main Lab . END OF REPORT DEPARTMENT OF PATHOLOGY, [address] [place] [address] Silvestre Collier M.D. Director [facility] # [id number] 26 Test Result Flag Unit RefValue Crystal ID, Synovial Fl See Comment A None seen RESULT: No CPPD or Urate crystals seen. Reviewed By: Tech Test Performed by: [facility] - [address] [address] 27 SEE RESULT BELOW Name: ONEIDA REESE : [address]: Maite King MD Acct: [id number] Unit: [id number] AGE: 52 Location: [facility] Re05/18/18 SEX: F Status: REG REF SPEC: [id number] LATASHA: 05/18/18-[address] [facility] [address]: Maite King MD REQ: [id number] RECD: 05/18/18 STATUS: RES [facility] DR: Haylee Cordero MD _ SOURCE: VAGINAL SPDESC: ORDERED: Genital Culture, Fungal - Other COMMENTS: Verbal to ADEEL by [id number] at 1353 on 05/21/18. Results read back accurately. Procedure Result Reported Site Genital Culture Final 05/20/18- 1356 ML Organism 1 GARDNERELLA VAGINALIS Quantity 3+ Organism 2 NORMAL FERCHO Quantity 2+ Routine genital cultures do not include selective agar for Neisseria gonorrhoeae. Molecular testing offers better test sensitivity and therefore is the preferred test methodology for identifying this organism. Fungal Cult - Other Sources Preliminary 05/28/18- 1250 ML Organism 1 AVRIL GLABRATA Most C.glabrata isolates are resistant to fluconazole therapy. Treatment with caspofungin may be necessary. Fungal sensitivity testing available upon request. * ML - Main Lab . END OF REPORT DEPARTMENT OF PATHOLOGY, [address] [place] [address] Silvestre Collier M.D. Director [facility] # [id number] 28 SEE RESULT BELOW Name: ONEIDA REESE : [address]: Maite King MD Acct: [id number] Unit: [id number] AGE: 52 Location: [facility] Re05/18/18 SEX: F Status: REG REF SPEC: [id number] LATASHA: 05/18/18-[address] [facility] [address]: Maite King MD REQ: [id number] RECD: 05/18/18 STATUS: RES OTHR DR: Haylee Cordero MD _ SOURCE: VAGINAL SPDESC: ORDERED: Genital Culture, Fungal - Other COMMENTS: Verbal to [id number] by [id number] at 1353 on 05/21/18. Results read back accurately. Procedure Result Reported Site Genital Culture Final 05/20/18- 1356 ML Organism 1 GARDNERELLA VAGINALIS Quantity 3+ Organism 2 NORMAL FERCHO Quantity 2+ Routine genital cultures do not include selective agar for Neisseria gonorrhoeae. Molecular testing offers better test sensitivity and therefore is the preferred test methodology for identifying this organism. Fungal Cult - Other Sources Preliminary 06/04/18- 1200 ML Organism 1 AVRIL GLABRATA Most C.glabrata isolates are resistant to fluconazole therapy. Treatment with caspofungin may be necessary. Fungal sensitivity testing available upon request. * ML - Main Lab . END OF REPORT DEPARTMENT OF PATHOLOGY, [address] [place] [address] Silvestre Collier M.D. Director [facility] # [id number] 29 SEE RESULT BELOW Name: ONEIDA REESE Harpreet : [address]: Maite King MD Acct: [id number] Unit: [id number] AGE: 52 Location: [facility] Re05/18/18 SEX: F Status: REG REF SPEC: [id number] LATASHA: 05/18/18-[address] [facility] [address]: Maite King MD REQ: [id number] RECD: 05/18/18 STATUS: RES [facility] DR: Haylee Cordero MD _ SOURCE: VAGINAL SPDESC: ORDERED: Genital Culture, Fungal - Other COMMENTS: Verbal to [id number] by [id number] at 1353 on 05/21/18. Results read back accurately. Procedure Result Reported Site Genital Culture Final 05/20/18- 1356 ML Organism 1 GARDNERELLA VAGINALIS Quantity 3+ Organism 2 NORMAL FERCHO Quantity 2+ Routine genital cultures do not include selective agar for Neisseria gonorrhoeae. Molecular testing offers better test sensitivity and therefore is the preferred test methodology for identifying this organism. Fungal Cult - Other Sources Preliminary 06/11/18- 1446 ML Organism 1 AVRIL GLABRATA Most C.glabrata isolates are resistant to fluconazole therapy. Treatment with caspofungin may be necessary. Fungal sensitivity testing available upon request. * - [facility] . END OF REPORT DEPARTMENT OF PATHOLOGY, [address] [place] [address] Silvestre Collier M.D. Director [facility] # [id number] 30 SEE RESULT BELOW Name: ONEIDA REESE : [address]: Maite King MD Acct: [id number] Unit: [id number] AGE: 52 Location: [facility] Re05/18/18 SEX: F Status: REG REF SPEC: [id number] LATASHA: 05/18/18-[address] [facility] [address]: Maite King MD REQ: [id number] RECD: 05/18/18 STATUS: ISACC WATTERS DR: Haylee Cordero MD _ SOURCE: VAGINAL SPDESC: ORDERED: Fungal Sensi Procedure Result Reported Site Fungal Sensitivities Final 06/08/18- 1334 ML FINAL IDENTIFICATION Avril glabrata 06/07/2018 Major Test(s) Performed MALDI-TOF Mass Spectrometry Analysis* : Avril glabrata 06/07/2018 () Avril glabrata Amphotericin B E test: Not interpretable; 0.064 ug/ml 06/07/2018 Anidulafungin: Susceptible; 0.06 ug/ml 06/07/2018 Caspofungin: Susceptible; 0.06 ug/ml 06/07/2018 Fluconazole: Susceptible-Dose Dependent; 4 ug/ml 06/07/2018 Itraconazole: Not interpretable; 0.25 ug/ml 06/07/2018 Micafungin: Susceptible; 0.015 ug/ml 06/07/2018 Posaconazole: Not interpretable; 0.25 ug/ml 06/07/2018 Voriconazole: Not interpretable; 0.06 ug/ml 06/07/2018 Isavuconazole: Not interpretable; 0.06 ug/ml 06/07/2018 NOTES: CONTINUED ON NEXT PAGE DEPARTMENT OF PATHOLOGY, [address] [place] [address] Silvestre Collier M.D. Director [facility] # [id number] Patient: ONEIDA REESE [id number] (Continued) Specimen: [id number] Collected: 05/18/18 Received: 05/18/18 (Continued) Procedure Result Reported Site Fungal Sensitivities Final (continued) 06/08/18- 1334 [1] Antifungal susceptibility testing was performed using broth microdilution method for all drugs except Amphotericin B and 5-flucytosine in accordance with current Clinical and Laboratory Standards [place] (CLSI) standard M27-A3 and in accordance with Clinical Laboratory Improvement Amendments (CLIA) regulations. [2] The JUSTIN breakpoints for echinocandins, fluconazole and voriconazole are based upon CLSI M27-S4 document [3] JUSTIN equal to or less than 32: Expert consultation on selection of a maximum dosage regimen may be useful * The performance characteristics of this test were determined by the [facility]. It has not been cleared or approved by the U.S. Food and Drug Administration. Test Performed by: [place] [address] * ML - Main Lab . END OF REPORT DEPARTMENT OF PATHOLOGY, [address] [place] [address] Silvestre Collier M.D. Director [facility] # [id number] 31 SEE RESULT BELOW Name: ONEIDA REESE Harpreet : [address]: Maite King MD Acct: [id number] Unit: [id number] AGE: 53 Location: [facility] Re05/18/18 SEX: F Status: REG REF SPEC: [id number] LATASHA: 05/18/18-[address] [facility] [address]: Maite King MD REQ: [id number] RECD: 05/18/18 STATUS: ISACC WATTERS DR: Haylee Cordero MD _ SOURCE: VAGINAL SPDESC: ORDERED: Genital Culture, Fungal - Other COMMENTS: Verbal to [id number] by [id number] at 1353 on 05/21/18. Results read back accurately. Procedure Result Reported Site Genital Culture Final 05/20/18- 1356 ML Organism 1 GARDNERELLA VAGINALIS Quantity 3+ Organism 2 NORMAL FERCHO Quantity 2+ Routine genital cultures do not include selective agar for Neisseria gonorrhoeae. Molecular testing offers better test sensitivity and therefore is the preferred test methodology for identifying this organism. Fungal Cult - Other Sources Final 06/18/18- 1246 ML Organism 1 AVRIL GLABRATA Most C.glabrata isolates are resistant to fluconazole therapy. Treatment with caspofungin may be necessary. Fungal sensitivity testing available upon request. * ML - Main Lab . END OF REPORT DEPARTMENT OF PATHOLOGY, [address] [place] [address] Silvestre Collier M.D. Director [facility] # [id number] 32 Because ethnic data is not always readily [...] 15-29 5 Kidney failure <15 (or dialysis) 33 [id number] 34 SEE RESULT BELOW Name: ONEIDA REESE : [address]: Krystyna Ayala MD Acct: [id number] Unit: [id number] AGE: 52 Location: [facility] Re04/17/18 SEX: F Status: REG REF SPEC: [id number] LATASHA: 04/17/18-[address] [facility] [address]: Krystyna Ayala MD REQ: [id number] RECD: 04/17/18754 STATUS: COMP _ SOURCE: VAGINAL SPDESC: ORDERED: Nevaeh,Yeast DNA, Trich DNA COMMENTS: [id number] Would you like to order Trichomonas Vaginalis testing? Yes Procedure Result Reported Site Gardnerella/Yeast: Vaginal DNA Final 04/18/18- 1328 ML Organism 1 POSITIVE AVRIL Organism 2 POSITIVE GARDNERELLA The presence of G. vaginalis, although suggestive, [...] is unknown. The presence or absence of Avril species, or G. vaginalis cannot be used as a test for therapeutic success or failure. Trichomonas: Vaginal DNA Probe Final 04/18/18- 1328 ML Organism 1 Negative Trichomonas CONTINUED ON NEXT PAGE DEPARTMENT OF PATHOLOGY, [address] [place] [address] Silvestre Collier M.D. Director [facility] # [id number] Patient: ONEIDA REESE [id number] (Continued) Specimen: [id number] Collected: 04/17/18 Received: 04/17/18 (Continued) Procedure Result Reported Site Trichomonas: Vaginal DNA Probe Final (continued) 04/18/18 0240 The presence or absence of T. vaginalis cannot be used as a test for therapeutic success or failure. * ML - Main Lab . END OF REPORT DEPARTMENT OF PATHOLOGY, [address] [place] [address] Silvestre Collier M.D. Director [facility] # [id number] 35 SEE RESULT BELOW Name: ONEIDA REESE : [address]: Krystyna Ayala MD Acct: [id number] Unit: [id number] AGE: 52 Location: [facility] Re04/17/18 SEX: F Status: REG REF SPEC: [id number] LATASHA: 04/17/18-[address] [facility] [address]: Krystyna Ayala MD REQ: [id number] RECD: 04/17/185418 STATUS: SOUT _ ORDERED: TP IMAGE ANALYS, HPV/Thin Prep COMMENTS: [id number] Negative for Intraepithelial lesion or Malignancy Date Time Test Result Flag (u) Normal Range 04/17/18 1246 @ HPV RNA Negative Negative @ @ The high-risk HPV types detected by the assay include: 16, @ 18, 31, 33, 35, 39, 45, 51, 52, 56, 58, 59, 66, and 68. A. Ectocervical/Endocervical Specimen Adequacy: Satisfactory of evaluation Transformation zone component identified Patient Information: HPV: High risk HPV RNA testing regardless of pap results. Actual Specimen Date: 04/17/18 LMP If Unknown: 11/2017 ?: N Post Menopausal?: Y Hysterectomy?: N Previous Abnormal Pap Smears?:N Signed by and Reported on: BRYCE Will(ASCP) 0858 This Pap test was evaluated with the assistance of the [employer] Test Imaging System. Due to cytologic findings at the cellars supervisor microscope, comprehensive manual rescreening by a Court Officer may be required. The Pap Smear is a screening test designed to aid in the detection of premalignant and malignant conditions of the uterine cervix. It is not a diagnostic procedure and should not be used as the sole means of detecting cervical cancer. Both false- positive and false- negative reports do occur. Depending on your risk status, a Pap smear should be obtained and evaluated every 1-3 years. END OF REPORT DEPARTMENT OF PATHOLOGY, [address] [place] [address] Silvestre Collier M.D. Director [facility] # [id number] 36 [id number] 37 SEE RESULT BELOW Name: ONEIDA REESE : [address]: Krystyna Ayala MD Acct: [id number] Unit: [id number] AGE: 52 Location: [facility] Re04/17/18 SEX: F Status: REG REF SPEC: [id number] LATASHA: 04/17/18-[address]: Krystyna Ayala MD REQ: [id number] RECD: 04/17/18 STATUS: COMP _ SOURCE: URINE SPDESC: ORDERED: Urine Culture COMMENTS: [id number] Urine Source: Random Procedure Result Reported Site Urine Culture Final 04/18/18- 1616 ML No Growth (<1,000 CFU/mL) * ML - Main Lab . END OF REPORT DEPARTMENT OF PATHOLOGY, [address] [place] [address] Silvestre Collier M.D. Director [facility] # [id number] 38 Because ethnic data is not always readily [...] 15-29 5 Kidney failure <15 (or dialysis) 39 SEE RESULT BELOW Name: ONEIDA REESE Harpreet : [address]: Maite King MD Acct: [id number] Unit: [id number] AGE: 52 Location: [facility] Re04/02/18 SEX: F Status: REG REF SPEC: [id number] LATASHA: 04/02/[address] [facility] [address]: Maite King MD REQ: [id number] RECD: 04/02/18 STATUS: ISACC WATTERS DR: Haylee Cordero MD _ SOURCE: URINE SPDESC: ORDERED: Urine Culture QUERIES: Urine Source: Random Procedure Result Reported Site Urine Culture Final 04/03/18- 0839 ML No Growth (<1,000 CFU/mL) * ML - Main Lab . END OF REPORT DEPARTMENT OF PATHOLOGY, [address] [place] [address] Silvestre Collier M.D. Director [facility] # [id number] 40 Therapeutic target for the treatment of diabetes mellitus patients is <7% HBA1C, and in selective patients <6.0%. Please refer to [place] [employer] diabetic care guidelines for further information. 41 Because ethnic data is not always [...] 5 Kidney failure <15 (or dialysis) 42 Because ethnic data is not always readily [...] 15-29 5 Kidney failure <15 (or dialysis) 43 SEE RESULT BELOW Name: ONEIDA REESE : [address]: Maite King MD Acct: [id number] Unit: [id number] AGE: 52 Location: [facility] Re02/27/18 SEX: F Status: REG REF SPEC: [id number] LATASHA: 02/27/18-[address] [facility] [address]: Maite King MD REQ: [id number] RECD: 02/27/18 STATUS: ISACC WATTERS DR: Haylee Cordero MD _ SOURCE: VAGINAL SPDESC: ORDERED: Genital Culture Procedure Result Reported Site Genital Culture Final 03/01/18- 1113 ML Organism 1 GARDNERELLA VAGINALIS Quantity 3+ Organism 2 NORMAL FERCHO Quantity 2+ Routine genital cultures do not include selective agar for Neisseria gonorrhoeae. Molecular testing offers better test sensitivity and therefore is the preferred test methodology for identifying this organism. * ML - Main Lab . END OF REPORT DEPARTMENT OF PATHOLOGY, [address] [place] [address] Silvestre Collier M.D. Director [facility] # [id number] 44 Because ethnic data is not always readily [...] 15-29 5 Kidney failure <15 (or dialysis) 45 Because ethnic data is not always readily [...] 15-29 5 Kidney failure <15 (or dialysis) 46 <5.0 Negative 5.0 - 25.0 Indeterminate (Repeat testing recommended after 72 hours) >25.0 Positive Perimenopausal women can display HCG levels of up to 20 mIU/mL 47 SEE RESULT BELOW Name: ONEIDA REESE Harpreet : [address]: Milka SANTIAGO Acct: [id number] Unit: [id number] AGE: 52 Location: [facility] Re01/02/18 SEX: F Status: REG REF SPEC: [id number] LATASHA: 01/02/18-1634 [facility] : Milka SANTIAGO REQ: [id number] RECD: 01/02/18 STATUS: COMP _ SOURCE: URINE SPDESC: ORDERED: Urine Culture COMMENTS: [id number] Urine Source: Random Procedure Result Reported Site Urine Culture Final 01/04/18- 08 ML Organism 1 CITROBACTER KOSERI [place] Count >100,000 (Many) CFU/ML 1. CITROBACTER KOSERI [facility] RX --------- ------ Cefazolin <=4 S Cefepime <=1 S Ceftriaxone <=1 S Ciprofloxacin <=0.25 S Gentamicin <=1 S Levofloxacin <=0.12 S Meropenem <=0.25 S Nitrofurantoin 32 S Tetracycline <=1 S Pipercillin/Tazobactam <=4 S Trimethoprim/Sulfamethoxazole <=20 S Amoxicillin/Clavulanic Acid 8 S Aztreonam <=1 S Contact the Microbiology Department for any additional antibiotic reporting. * ML - Main Lab . END OF REPORT DEPARTMENT OF PATHOLOGY, [address] [place] [address] Silvestre Collier M.D. Director [facility] # [id number] 48 [id number] 49 SEE RESULT BELOW Name: ONEIDA REESE : [address]: Haylee Cordero MD Acct: [id number] Unit: [id number] AGE: 52 Location: [facility] Re08/28/17 SEX: F Status: REG REF SPEC: [id number] LATASHA: 08/28/17-[address] [facility] [address]: Radha Núñez MD REQ: [id number] RECD: 08/28/17 STATUS: RENATA WATTERS DR: Haylee Cordero MD _ ORDERED: LEVEL 4/2, IMMUNO-FIRST, IMMUNO-ADDL, IMMUNO-QUANT/3 COMMENTS: [id number] Immunohistochemical stains, with appropriately reacting controls, were performed with the following results: ER strongly positive, nearly 100% of tumor cells WA negative (0%) HER-2/maritza negative (0+) P63 positive [...] and distribution: Involves multiple sampled cores. Estimated Amador grade: Estimated tubule formation: 3. Estimated nuclear grade: 3. Estimated mitotic count: 1. Combined Stuart histologic grade: 2/3. (7/9 points). Lymphovascular invasion: Not identified. 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 Extent and distribution: Present in association with invasive carcinoma. Architectural pattern: Cribriform and solid types. Nuclear grade: Intermediate. Necrosis: Absent. ER, WA, and Her2/Maritza by immunohistochemistry with appropriate controls: ER: Pending; results will be reported in an addendum. CONTINUED ON NEXT PAGE DEPARTMENT OF PATHOLOGY, [address] [place] [address] Silvestre Collier M.D. Director [facility] # [id number] RUN DATE: 08/30/17 [facility] LAB LIVE PAGE 2 Patient: ONEIDA REESE [id number] (Continued) FINAL DIAGNOSIS (Continued) WA: Pending; results will be reported in an [...] (signature on file) Kortney Lugo MD 08/13 END OF REPORT DEPARTMENT OF PATHOLOGY, [address] [place] [address] Silvestre Collier M.D. Director [facility] # [id number] 50 [facility] Severe Sepsis and Septic Shock Management Bundle Measure requires all lactic acids initially measuring >2.0 mmol/L be repeated. 51 SEE RESULT BELOW Name: ONEIDA REESE : [address]: Luis Miguel Astorga MD Acct: [id number] Unit: [id number] AGE: 52 Location: ED Re08/14/17 SEX: F Status: DEP ER SPEC: [id number] LATASHA: 08/14/[address] [facility] [address]: Jennifer SANTIAGO REQ: [id number] RECD: 08/14/17 STATUS: ISACC WATTERS DR: Haylee Astorga MD _ SOURCE: BLOOD,VENO SPDESC: ORDERED: Blood Cult Procedure Result Reported Site Aerobic Culture Bottle Final 08/19/17- 1935 ML No Growth Day 5 Anaerobic Culture Bottle Final 08/19/17- 1935 ML No Growth Day 5 * ML - Main Lab . END OF REPORT DEPARTMENT OF PATHOLOGY, [address] [place] [address] Silvestre Collier M.D. Director [facility] # [id number] 52 Because ethnic data is not always readily [...] 15-29 5 Kidney failure <15 (or dialysis) 53 CALL RESULTS EXT : [id number] 54 CALL RESULTS EXT : [id number] 55 Because ethnic data is not always readily [...] 15-29 5 Kidney failure <15 (or dialysis) 56 <5.0 Negative 5.0 - 25.0 Indeterminate (Repeat testing recommended after 72 hours) >25.0 Positive Perimenopausal women can display HCG levels of up to 20 mIU/mL 57 Because ethnic data is not always readily [...] 15-29 5 Kidney failure <15 (or dialysis) 58 Because ethnic data is not always readily [...] 15-29 5 Kidney failure <15 (or dialysis) 59 Desirable <150 Borderline high 150-199 High 200-499 Very High >500 60 Desirable <200 Borderline high 200-239 High >239 61 Low <40 Desirable: 40-60 High: >60 62 Desirable: <100 mg/dL Near Optimal: 100-129 mg/dL Borderline High: 130-159 mg/dL High: 160-189 mg/dL Very High: >189 mg/dL 63 It is recognized that currently available assays [...] 95% confidence interval of 99.78 to 99.96%. 64 [id number] 65 SEE RESULT BELOW Name: ONEIDA REESE : [address]: Haylee Cordero MD Acct: [id number] Unit: [id number] AGE: 51 Location: [facility] Re10/19/16 SEX: F Status: REG REF SPEC: [id number] LATASHA: 10/19/16-[address] [facility] [address]: Haylee Cordero MD REQ: [id number] RECD: 10/19/16 STATUS: COMP _ SOURCE: VAGINAL SPDESC: ORDERED: Nevaeh,Yeast DNA COMMENTS: [id number] Procedure Result Reported Site Gardnerella/Yeast: Vaginal DNA Final 10/20/16- 0950 ML Organism 1 POSITIVE GARDNERELLA Organism 2 Negative Avril The presence of G. vaginalis, although suggestive, [...] is unknown. The presence or absence of Avril species, or G. vaginalis cannot be used as a test for therapeutic success or failure. * ML - MAIN LAB ([facility]) . END OF REPORT * ML=Testing performed at Main Lab DEPARTMENT OF PATHOLOGY, [address] [place] [address] Silvestre Collier M.D. Director [facility] # [id number] 66 [id number] GC/Chlamydia Source?: Endocervical Trichomonas Source: Endocervical 67 Acute inflammation: >10.00 68 [facility] Severe Sepsis and Septic Shock Management Bundle Measure requires all lactic acids initially measuring >2.0 mmol/L be repeated. 69 <5.0 Negative 5.0 - 25.0 Indeterminate (Repeat testing recommended after 72 hours) >25.0 Positive Perimenopausal women can display HCG levels of up to 20 mIU/mL 70 Because ethnic data is not always readily [...] 15-29 5 Kidney failure <15 (or dialysis) 71 [facility] Severe Sepsis and Septic Shock Management Bundle Measure requires all lactic acids initially measuring >2.0 mmol/L be repeated. 72 Would you like to order Trichomonas Vaginalis RNA testing? N 73 SEE RESULT BELOW Name: ONEIDA REESE : [address]: Brigido Noe DO Acct: [id number] Unit: [id number] AGE: 51 Location: ED Re08/18/16 SEX: F Status: DEP ER SPEC: [id number] LATASHA: 08/18/16-[address] [facility] [address]: Tressa SANTIAGO REQ: [id number] RECD: 08/18/16-1445 STATUS: ISACC WATTERS DR: Brigido Hurst MD _ SOURCE: VAGINAL SPDESC: ORDERED: Nevaeh,Yeast DNA COMMENTS: Would you like to order Trichomonas Vaginalis RNA testing? N Procedure Result Reported Site Gardnerella/Yeast: Vaginal DNA Final 08/19/16- 1118 ML Organism 1 POSITIVE GARDNERELLA Organism 2 Negative Avril The presence of G. vaginalis, although suggestive, [...] is unknown. The presence or absence of Avril species, or G. vaginalis cannot be used as a test for therapeutic success or failure. * ML - MAIN LAB ([facility]) . END OF REPORT * ML=Testing performed at Main Lab DEPARTMENT OF PATHOLOGY, [address] [place] [address] Silvestre Collier M.D. Director [facility] # [id number] 74 Because ethnic data is not always readily [...] 15-29 5 Kidney failure <15 (or dialysis) 75 Acute inflammation: >10.00 76 *Ascorbic acid is present which may interfere with detection of blood. 77 SEE RESULT BELOW Name: ONEIDA REESE : [address]: Robert Sánchez MD Acct: [id number] Unit: [id number] AGE: 50 Location: ED Re06/04/16 SEX: F Status: DEP ER SPEC: [id number] LATASHA: 06/04/16-[address] [facility] [address]: Robert Sánchez MD REQ: [id number] RECD: 06/04/16 STATUS: ISACC WATTERS DR: Haylee Cordero MD _ SOURCE: VAGINAL SPDESC: ORDERED: Nevaeh,Yeast DNA Procedure Result Reported Site Gardnerella/Yeast: Vaginal DNA Final 06/05/16- 1322 ML Organism 1 POSITIVE GARDNERELLA Organism 2 Negative Avril The presence of G. vaginalis, although suggestive, [...] is unknown. The presence or absence of Avril species, or G. vaginalis cannot be used as a test for therapeutic success or failure. * ML - MAIN LAB ([facility]) . END OF REPORT * ML=Testing performed at Main Lab DEPARTMENT OF PATHOLOGY, [address] [place] [address] Silvestre Collier M.D. Director [facility] # [id number] GC/Chlamydia Source?: Endocervical Trichomonas Source: Endocervical 79 SEE RESULT BELOW Name: ONEIDA REESE : [address]: Robert Sánchez MD Acct: [id number] Unit: [id number] AGE: 50 Location: ED Re06/04/16 SEX: F Status: DEP ER SPEC: [id number] LATASHA: 06/04/[address] [facility] [address]: Robert Sánchez MD REQ: [id number] RECD: 06/04/16 STATUS: ISACC WATTERS DR: Haylee Cordero MD _ SOURCE: URINE SPDESC: ORDERED: Urine Culture Procedure Result Reported Site Urine Culture Final 06/08/16- 0818 ML Organism 1 PROTEUS MIRABILIS [place] Count >100,000 (Many) CFU/ML Organism 2 NORMAL FERCHO [place] Count 1-10,000 (Few) CFU/ML 1. PROTEUS MIRABILIS M.I.C. RX --------- ------ Ampicillin >=32 R Cefazolin R Cefepime S Ceftriaxone S Ciprofloxacin <=0.25 S Gentamicin <=1 S Levofloxacin <=0.12 S Meropenem R Nitrofurantoin 128 R Tetracycline >=16 R Pipercillin/Tazobactam R Trimethoprim/Sulfamethoxazole <=20 S Aztreonam S Contact the Microbiology Department for any additional antibiotic reporting. * ML - MAIN LAB ([facility]) . END OF REPORT * ML=Testing performed at Main Lab DEPARTMENT OF PATHOLOGY, [address] [place] [address] Silvestre Collier M.D. Director [facility] # [id number] 80 FASTING 10 HOUR 81 FASTING 10 HOUR 82 Because ethnic data is not always readily [...] 15-29 5 Kidney failure <15 (or dialysis) 83 Because ethnic data is not always readily [...] 15-29 5 Kidney failure <15 (or dialysis) 84 Desirable <150 Borderline high 150-199 High 200-499 Very High >500 85 Desirable <200 Borderline high 200-239 High >239 86 Low <40 Desirable: 40-60 High: >60 87 Desirable: <100 mg/dL Near Optimal: 100-129 mg/dL Borderline High: 130-159 mg/dL High: 160-189 mg/dL Very High: >189 mg/dL 88 <5.0 Negative 5.0 - 25.0 Indeterminate (Repeat testing recommended after 72 hours) >25.0 Positive Perimenopausal women can display HCG levels of up to 20 mIU/mL 89 Because ethnic data is not always readily [...] 15-29 5 Kidney failure <15 (or dialysis) 90 Therapeutic target for the treatment of diabetes Mellitus patients is <7% HBA1C, and in selective patients <6.0%.Please refer to [place] [employer] Diabetic care guidelines for further information. 91 Because ethnic data is not always readily [...] 15-29 5 Kidney failure <15 (or dialysis) 92 FASTING 12 HOUR 93 Because ethnic data is not always readily [...] 15-29 5 Kidney failure <15 (or dialysis) 94 Desirable <150 Borderline high 150-199 High 200-499 Very High >500 95 Desirable <200 Borderline high 200-239 High >239 96 Low <40 Desirable: 40-60 High: >60 97 Desirable <100 Near Optimal 100-129 Borderline high 130-159 High 160-189 Very High >189 98 HDL Interpretation: Undesirable: High Risk: Less than 40 MG/DL Desirable: Low Risk: Greater than 60 MG/DL 99 LDL Interpretation: Low Risk Optimal Level: LDL Less than 100 MG/DL Near or Above Optimal: LDL 100-129 MG/DL Borderline High Risk: LDL 130-159 MG/DL High Risk: LDL 160-189 MG/DL Very High Risk: LDL Greater than 189 MG/DL 100 FASTING 10 HOUR 101 Because ethnic data is not always readily [...] 15-29 5 Kidney failure <15 (or dialysis) 102 RUN DATE: 08/31/12 [facility] LAB LIVE PAGE 1 RUN TIME: [address] [place] [address] Specimen Inquiry Name: ONEIDA REESE : [address]: Haylee Cordero MD Acct: [id number] Unit: [id number] AGE: 47 Location: [facility] Re08/27/12 SEX: F Status: REG REF SPEC: [id number] LATASHA: 08/27/12-[address] [facility] [address]: Haylee Cordero MD REQ: [id number] RECD: 08/27/12 STATUS: SOUT _ ORDERED: IMAGE ANALYSIS, HPV / Thin Prep HiRisk Human Papilloma Virus test results received with preparation and diagnosis completed by [email or web address], [place], [place]. Results: NEGATIVE High Risk (for types 16, 18, 31, 33, 35, 39, 45, 51, 52, 56, 58, 59, 68) DiGDFT Microsystems Hybrid Capture Specimen Transport Media or [employer] ThinPrep PapTest PreservCyt Solution are the collection systems approved for use with this method by the U.S. Food and Drug Administration. Performance characteristics for AutoCyte (SurFaveeo) collection device have been determined by Laboratory Medicine and Pathology , [facility], [place], [place]. It has not been cleared or approved by the U.S. Food and Drug Administration. Test Performed by: [facility] Dpt of lab Med and Pathology [address] [place] [address] Bee Breeder: Tu Benavidez III, M.D. Original hard copy report from [facility] is available upon request by calling Pathology at [phone]. Addendum Signed (signature on file) BRYCE Mullen ([facility]) 08/31/12918 FINAL DIAGNOSIS Negative for Intraepithelial lesion or Malignancy COMMENTS: Specimen sent to [facility] in [place], [place] on 08/28/12. Results will be reported separately in an Addendum. A. Ectocervical/Endocervical Specimen Adequacy: CONTINUED ON NEXT PAGE * ML=Testing performed at Main Lab DEPARTMENT OF PATHOLOGY, [facility] [place], [place] [address] Silvestre Collier M.D. Director [facility] Permit #[id number] RUN DATE: 08/31/12 [facility] LAB LIVE PAGE 2 RUN TIME: [address] [place] [address] Specimen Inquiry Patient: ONEIDA REESE [id number] (Continued) CYTOLOGY ADEQ (Continued) Satisfactory of evaluation [...] was evaluated with the assistance of the [employer] Online Science and TechnologyPrep Test Imaging System. Due to cytologic findings at the cellars supervisor microscope, comprehensive manual rescreening by a Court Officer may be required. The Pap Smear is [...] performed at Main Lab DEPARTMENT OF PATHOLOGY, [address] [place] [address] Silvestre Collier M.D. Director [facility] Permit #[id number] 103 For types 16, 18, 31, 33, 35, 39, 45, 51, 52, 56, 58, 59 and 68. Test Performed by: [address] [address] Bee Breeder: Tu Benavidez III, M.D. 104 RUN DATE: 04/18/12 [facility] LAB LIVE PAGE 1 RUN TIME: [address] [place] [address] Specimen Inquiry Name: ONEIDA REESE : [address]: Haylee Cordero MD Acct: [id number] Unit: [id number] AGE: 46 Location: [facility] Re04/17/12 SEX: F Status: REG REF SPEC: [id number] LATASHA: 04/17/12-[address]: Haylee Cordero MD REQ: [id number] RECD: 04/17/12 STATUS: COMP _ SOURCE: VAGINAL SPDESC: ORDERED: Affirm QUERIES: Medent Number [id number] Procedure Result Verified Site Affirm Vaginal DNA Probe Final 04/18/12- 1154 ML Trichomonas Negative Gardnerella Negative Avril Negative The presence of G. vaginalis, although [...] is unknown. The presence or absence of Avril species, G. vaginalis or T. vaginalis cannot be used as a test for therapeutic success or failure. END OF REPORT * ML=Testing performed at Main Lab DEPARTMENT OF PATHOLOGY, [address] [place] [address] Silvestre Collier M.D. Director [facility] Permit #[id number] 105 Test Performed by: [address] [address] Bee Breeder: Tu Benavidez III, M.D. 106 CHOLESTEROL INTERPRETATION: Desirable: Less than 200 MG/DL Borderline-High Risk: 200-239 MG/DL High-Risk: 240 MG/DL and over 107 HDL INTERPRETATION: Undesirable: High Risk: Less than 40 MG/DL Desirable: Low Risk: Greater than 60 MG/DL 108 LDL INTERPRETATION: Low Risk Optimal Level: LDL Less than 100 MG/DL Near or Above Optimal: LDL 100-129 MG/DL Borderline High Risk: LDL 130-159 MG/DL High Risk: LDL 160-189 MG/DL Very High Risk: LDL Greater than 189 MG/DL 109 -- REFERENCE VALUE -- No abnormal variants 110 Normal hemoglobin electrophoresis evaluation. No evidence of abnormal hemoglobin or beta thalassemia. Test Performed by: [place] [address] Bee Breeder: Tu Benavidez III, M.D. 111 Negative in normal Individuals. May be negative in dermatitis herpatiformis or celiac disease patients adhering to a gluten free diet. Laboratory developed test. Test Performed by: [place] [address] Bee Breeder: Tu Benavidez III, M.D. 112 -- REFERENCE VALUE -- <20.0 (Negative) Test Performed by: [place] [address] Bee Breeder: Tu Benavidez III, M.D. 113 -- REFERENCE VALUE -- <20.0 (Negative) Test Performed by: [place] [address] Bee Breeder: Tu Benavidez III, M.D. 114 Test Performed by: [place] [address] Bee Breeder: Tu Benavidez III, M.D. 115 ----- RUN DATE: 01/06/12 [facility] NMI LIVE PAGE 1 RUN TIME: 838 Specimen Inquiry RUN USER: INTERFACE -- Name: ONEIDA REESE#: [id number] Status: REG REF Re01/02/12 Age/Sex: 46/F Unit#: [id number] Location: [facility]. : [birth year] -- Specimen: [id number] SOUT Spec Date:01/02/[address] [facility] [address]: Haylee mclaughlin MD Spec Type: [...] significance (ASC-US) * NOTE Specimen sent to [facility] in [place], [place] on 01/03/12 by DB at 1409. Results will be reported separately in an addendum. Less than 8 mls of fluid left in vial, sample will most likely be quantity not sufficient for HPV testing. ADDENDUM Addendum #1 Entered: 01/06/12 HPV DNA High Risk Test Cancelled. Quantity not sufficient. This test was developed and its performance characteristics determined by Laboratory Medicine and Pathology, [facility] -- DEPARTMENT OF PATHOLOGY, [address] [place] [address] [facility] Permit #[id number] Shanta Rubalcava M.D. [employer] Tile Setter jo -- -- RUN DATE: 01/06/12 [facility] NMI LIVE PAGE 2 RUN TIME: 0839 Specimen Inquiry RUN USER: INTERFACE -- Name: ONEIDA REESE#: [id number] Status: REG REF Re01/02/12 Age/Sex: 46/F Unit#: [id number] Location: [facility] : 67 -- -- CONTINUED -- ADDENDUM ([place], [place]. It has not been cleared or approved by the U.S. Food and Drug Administration. Test Performed by: [facility] Dpt of lab Med and Pathology [address] [place] [address] Bee Breeder: Tu Benavidez III, M.D. Original hard copy report from [facility] [employer] is available upon request by calling Pathology at [phone]. Addendum Review Juan Ramon CORRALES([facility]) 01/06/12 -- This Pap test was evaluated with the assistance of the ThinPrep Pap Test Imaging System. Due to cytologic findings at the cellars supervisor microscope, comprehensive manual rescreening by a Court Officer was required. The Pap Smear is a [...] CORRALES(ASCP) 01/03/12 Final Interpretation electronically signed by: QUEENIE LUQUE 01/03/12 1442 -- -- DEPARTMENT OF PATHOLOGY, [address] [place] [address] [facility] Permit #[id number] Silvestre Collier M.D. Director Queenie Luque M.D. [employer] Tile Setter jo -- 116 Anion gap measurement may be of limited value in the presence of any alkalosis, especially in a combined acid base disorder. . 117 A metabolite of Naproxen, O-desmethylnaproxen, has been shown to interfere with the Jenso-Cusick method for measuring total bilirubin. Samples from patients who have taken Naproxen have shown spurious elevation in total bilirubin levels. 118 Because ethnic data is not always readily [...] 15-29 5 Kidney failure <15 (or dialysis) 119 Please note: New reference range, effective 05/19/11 NORMAL REFERENCE RANGE: GREATER THAN 4.1 NG/ML 120 Please note: New reference range, effective 05/19/11 NORMAL REFERENCE RANGE: GREATER THAN 4.1 NG/ML 121 Anion gap measurement may be of limited value in the presence of any alkalosis, especially in a combined acid base disorder. . 122 A metabolite of Naproxen, O-desmethylnaproxen, has been shown to interfere with the Jendrassik-Cusick method for measuring total bilirubin. Samples from patients who have taken Naproxen have shown spurious elevation in total bilirubin levels. 123 Because ethnic data is not always readily [...] 15-29 5 Kidney failure <15 (or dialysis) 124 *LEVELS AT THE LOWER END OF THE RANGE MAY BE NEEDED FOR SYMPTOMATIC HEART FAILURE AND LEVELS AT THE HIGHER END OF THE RANGE FOR RATE CONTROL.* Procedures Date Code Description Status 09/11/2018 12690 Removal Tunneled Central Venous Access Dev W/Sub Completed Port/Pump 08/20/2018 828855396 Bone Mineral Density Test Completed 07/27/2018 93976 Inject/Drain Joint/Bursa Major W/O US Completed 03/22/2018 00800 EKG Tracing & Interpretation Completed 01/18/2018 23899 Fluoroscopic Guidance For Cent Completed 01/18/2018 05936 Insertion Tunneled Cent Venous Cathr W Subcut Port 5 Completed Yrs Or Oldr 10/04/2017 15606 ECHO Transthoracic, Real-Time 2D With Doppler And Completed Color Flow 10/04/2017 72028 ECHO Transthoracic, Real-Time 2D With Doppler And Completed Color Flow 09/15/2017 62473 EKG Tracing & Interpretation Completed 08/28/2017 [id number] Mammogram Completed 08/17/2017 [id number] Mammogram Completed 08/11/2017 67993 Moderate Sedation Services; Same Phys Each Additional Completed 15 Mins 08/11/2017 02055 Moderate Sedation Services; Same Phys Intl 15 Mins; PT Completed >=5 Years 08/11/2017 35441 Ultrasound Guidance For Vascular Access Completed 08/11/2017 54053 Vascular Embolization Or Occlu Tumor Organ Ischemia Or Completed Infarction 08/11/2017 80927 Catheter Placement Arterial System Init 3RD Order Completed Abdom/Pelv/Low 08/11/2017 36649 Common Femoral, Bilat Completed 07/13/2017 [id number] Mammogram Completed 03/16/2017 84848722 Colonoscopy Completed 01/13/2017 26712 EKG Tracing & Interpretation Completed 06/08/2016 66042 ECHO Transthoracic, Real-Time 2D With Doppler And Completed Color Flow 06/07/2016 30580 EKG Tracing & Interpretation Completed 05/20/2016 26842065 Mammogram Completed 10/01/2015 16606 Holter Monitor Review (24 hr)dr dobson & interp only Completed 09/30/2015 01784 ECG Monitor/Recording W/Visual Superimposition Completed Scanning 09/25/2015 19199 EKG Tracing & Interpretation Completed 09/23/2015 04082 ECHO Transthoracic, Real-Time 2D With Doppler And Completed Color Flow 05/07/2015 88819518 Mammogram Completed 11/20/2014 11057 ECG Monitor/Recording W/Visual Superimposition Completed Scanning 11/20/2014 63223 Holter Monitor Review (24 hr)dr review & interp only Completed 11/17/2014 56959 ECG Monitor/Recording W/Visual Superimposition Completed Scanning 11/17/2014 27899 Holter Monitor Review (24 hr)dr review & interp only Completed 11/07/2014 56689 ECHO Transthoracic, Real-Time 2D With Doppler And Completed Color Flow 10/24/2014 34324 EKG Tracing & Interpretation Completed 02/21/2014 99226 ECHO Transthoracic, Real-Time 2D With Doppler And Completed Color Flow 02/07/2014 52909 EKG Tracing & Interpretation Completed 01/23/2013 80292986 Mammogram Completed 01/27/2012 99959 ECHO Transthoracic, Real-Time 2D With Doppler And Completed Color Flow 01/06/2012 66892784 Mammogram Completed 09/28/2011 20381 EKG Tracing & Interpretation Completed Encounters Type Date Location Provider Dx Diagnosis Office Visit 09/07/2018 Rheumatology Melquiades [id number] Rhedorothy arthritis w 12:40p [facility] site w/o org/sys involv 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 M06.4 Inflammatory polyarthropathy D64.9 Anemia, unspecified Office Visit 09/06/2018 9:30a [facility] Dvorah A60.04 [facility] Ayala MD vulvovaginitis Office Visit 08/14/2018 9:10a [facility] Internal Haylee Z00.00 Encntr for general Medicine - Shanta Cordero adult medical exam [place] w/o abnormal findings I10 Essential (primary) hypertension Z23 Encounter for immunization L84 Corns and callosities Office Visit 08/10/2018 10:40a Rheumatology Justyn Gabriel M05.79 Rhedorothy arthritis Services Of [facility] Womack w rheu factor mult site w/o org/sys involv R76.0 Raised antibody titer D64.9 Anemia, unspecified M25.561 Pain in right knee M15.0 Primary generalized (osteo)arthritis Office Visit 07/27/2018 Rheumatology Justyn M06.4 Inflammatory 10:00a Services Of [facility] Gabriel M.D. polyarthropathy R76.0 Raised antibody titer M25.561 Pain in right knee M72.2 Plantar fascial fibromatosis Office Visit 07/24/2018 1:00p [facility] Internal Haylee I10 Essential (primary ) Medicine - Shanta Cordero hypertension [place] M25.571 Pain in right ankle and joints of right foot M25.569 Pain in unspecified knee D50.0 Iron deficiency anemia secondary to blood loss (chronic) Office Visit 05/02/2018 10:15a [facility] Osiel Deshpande D25.9 Leiomyoma of Medicine Of [facility] Shanta Augustine uterus, unspecified Office Visit 04/17/2018 12:00p [facility] Krystyna Ayala, R30.0 Dysuria [facility] B37.3 Candidiasis of vulva and vagina D25.9 Leiomyoma of uterus, unspecified Office Visit 03/22/2018 Jadyn Tyler I42.9 Cardiomyopathy, 3:30p Cardiology Yemi, N.PSelina unspecified I10 Essential (primary) hypertension I42.5 Other restrictive cardiomyopathy Office Visit 01/12/2018 11:00a Surgical Diego Paul 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 leg Office Visit 10/18/2017 2:30p Yoni Deshpande D25.9 Leiomyoma of Medicine Of [facility] Augustine M.D. uterus, unspecified M72.2 Plantar fascial fibromatosis M54.5 Low back pain Office Visit 10/12/2017 8:45a Orthopedic Kendall Hamilton821 Posterior tibial Services Of Shanta Calhoun tendinitis, right C.M.A. leg Office Visit 09/25/2017 3:40p [facility] Internal Britt Fitch B37.3 Candidiasis of Medicine N.P. vulva and vagina A60.04 Herpesviral vulvovaginitis Office Visit 09/21/2017 3:30p Yoni Deshpande D25.9 Leiomyoma of Medicine Of [facility] Shanta Augustine uterus, unspecified Office Visit 09/15/2017 2:20p [facility] Qutaybeh S. 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 uterus, unspecified Office Visit 08/12/2017 [facility] Darcy Wetzel D25.9 Leiomyoma of 9:07a rena Vargas M.D. 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 leg Office Visit 01/31/2017 8:45a Orthopedic Kendall Swan.821 Posterior tibial Services Of Shanta Calhoun tendinitis, right C.M.A. 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 E78.4 Other hyperlipidemia R11.0 Nausea R35.0 Frequency of micturition I10 Essential (primary) hypertension Office Visit 01/13/2017 1:30p [facility] Radha Vegais, G47.00 Insomnia, Of [facility] [place] unspecified I42.9 Cardiomyopathy, unspecified R94.31 Abnormal electrocardiogram [ECG] [EKG] I10 Essential (primary) hypertension Office Visit 10/19/2016 8:30a [facility] Internal Medicine Hayleeharpreet Cordero, R30.0 Dysuria - Keila Womack N89.8 Other specified noninflammatory disorders of vagina Z11.4 Encounter for screening for human immunodeficiency virus Office Visit 09/14/2016 1:30p [facility] Jackson Deshpande D25.9 Leiomyoma of Medicine Of [facility] Augustine M.D. uterus, unspecified Office Visit 08/30/2016 2:40p [facility] Internal Haylee D25.9 Leiomyoma of Medicine Kacy Cordero M.D. 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 hypertension [place] F41.9 Anxiety disorder, unspecified D64.9 Anemia, unspecified Z23 Encounter for immunization Office Visit 01/27/2016 1:40p [facility] Internal Hubert Geronimo, Z00.00 Encntr for Medicine - [place] INSTRUCTOR EXTENSION WORK general adult Rd medical exam w/o abnormal findings Z12.31 Encntr screen mammogram for malignant neoplasm of breast I42.9 Cardiomyopathy, unspecified I10 Essential (primary) hypertension L30.9 Dermatitis, unspecified F43.0 Acute stress reaction J30.9 Allergic rhinitis, unspecified L70.0 Acne vulgaris Office Visit 01/25/2016 [facility] Internal Jamal K57.92 Dvtrcli of intest, 4:00p Medicine - Tbaleksander Palacios M.D. 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 foot L84 Corns and callosities Office Visit 09/25/2015 Jadyn Tyler I42.9 Cardiomyopathy, 2:20p Cardiology Shanta Alfaro unspecified I10 Essential (primary) hypertension I49.3 Ventricular premature depolarization Office Visit 07/06/2015 4:00p [facility] Internal Robert Mendez J06.9 Acute upper Medicine Shanta Baez respiratory infection, unspecified Office Visit 05/05/2015 3:00p Orthopedic Kendall Q66.51 Congenital pes Services Of Shanta Calhoun planus, right C.M.A. foot M65.871 Other synovitis and tenosynovitis, right ankle and foot Office Visit 04/15/2015 10:30a [facility] Internal Haylee Cordero, Z00.01 Encounter for Medicine Shanta general adult medical exam w abnormal findings L84 Corns and callosities Q66.51 Congenital pes planus, right foot N92.0 Excessive and frequent menstruation with regular cycle Z12.31 Encntr screen mammogram for malignant neoplasm of breast Z23 Encounter for immunization J30.9 Allergic rhinitis, unspecified Office Visit 03/17/2015 11:10a [facility] Internal Haylee R10.30 Lower abdominal Medicine Shanta Cordero pain, unspecified J01.90 Acute sinusitis, unspecified R73.01 Impaired fasting glucose Office Visit 02/23/2015 11:50a [facility] Internal Haylee K64.9 Unspecified Medicine Shanta Cordero hemorrhoids K59.09 Other constipation I10 Essential (primary) hypertension D50.9 Iron deficiency anemia, unspecified K64.0 First degree hemorrhoids Office Visit 02/12/2015 2:30p [facility] Radha Pearce, 425.9 Cardiomyopathy PA Secondary Unspecified 401.9 Hypertension Unspec 272.4 Hyperlipidemia Other Unspec 425.4 Cardiomyopathy Other Prim Office Visit 11/27/2014 9:30a [facility] Radha Pearce, 785.0 Tachycardia Unspec PA 425.9 Cardiomyopathy Secondary Unspecified 401.9 Hypertension Unspec 272.2 Hyperlipidemia Mixed 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 425.9 Cardiomyopathy 10:20a Cardiology Shanta Alfaro Secondary Unspecified 401.9 Hypertension Unspec 272.2 Hyperlipidemia Mixed 424.0 Mitral Valve Disorder 785.0 Tachycardia Unspec 785.1 Palpitations Office Visit 07/29/2014 2:50p [facility] Internal Haylee Cordero, 300.00 Anxiety State Medicine Shanta Unspec 795.51 Nonspec Reaction To Tuberculin Skin Test W/O Active TB V70.3 Examination Other Medical For Administrative Purpose Office Visit 03/12/2014 3:30p [facility] Radha Pearce, 281.9 Anemia Deficiency PA Unspec 425.9 Cardiomyopathy Secondary Unspecified 401.9 Hypertension Unspec Office Visit 02/07/2014 [facility] Qutaybeh S. 272.2 Hyperlipidemia 3:00p Cardiology Shanta Alfaro Mixed 401.9 Hypertension Unspec 425.9 Cardiomyopathy Secondary Unspecified Office Visit 12/26/2013 1:10p [facility] Internal Haylee V70.0 Examination Medicine Shanta Cordero General Medical Routine AT [facility] [address] Corns & Callosities V76.10 Screening For Malignant Neoplasm Breast 272.2 Hyperlipidemia Mixed 281.9 Anemia Deficiency Unspec Office Visit 11/26/2013 3:10p [facility] Internal Medicine Haylee Cordero, 724.2 Lumbago M.DSelina 401.9 Hypertension Unspec Office Visit 01/16/2013 10:30a [facility] Internal Haylee Cordero, 128.9 Helminth Medicine MSelinaDSelina Infection Unspec V76.10 Screening For Malignant Neoplasm Breast Office Visit 10/04/2012 2:20p Jadyn Collier 401.9 Hypertension Cardiology AT [place] Un[place] [facility] 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 272.4 Hyperlipidemia Other Unspec 285.9 Anemia Unspec Office Visit 09/26/2012 4:10p [facility] Internal Haylee Gil, 281.9 Anemia Deficiency Medicine M.D. Unspec 272.4 Hyperlipidemia Other Unspec Office Visit 08/27/2012 10:50a [facility] Internal Haylee Gil, 285.9 Anemia Unspec Medicine M.D. 401.9 Hypertension Unspec 795.01 Pap Smear Atypical Squamous Cell Undetermined Sig (Asc-US) 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 Office Visit 04/17/2012 9:50a [facility] Internal Haylee Cordero, 623.5 Leukorrhea Not Medicine M.D. Spec as Infective 285.9 Anemia Unspec 401.9 Hypertension Unspec 795.01 Pap Smear Atypical Squamous Cell Undetermined Sig (Asc-US) V04.81 Need For Prophylactic Vaccination & Inoculation/Influenza Office Visit 03/12/2012 Jadyn Collier 674.81 Post 10:20a Cardiology Sandra Turner Cardiomyopathy 401.9 Hypertension Unspec Office Visit 01/25/2012 9:50a [facility] Internal Haylee Gil, 285.9 Anemia Unspec Medicine M.DSelina 401.9 Hypertension Unspec 309.89 Adjustment Reaction Other Spec 795.01 Pap Smear Atypical Squamous Cell Undetermined Sig (Asc-US) Office Visit 01/02/2012 11:30a [facility] Internal Haylee V72.31 Routine [employer] Administrator Medicine Shanta Cordero Examination V76.2 Screening Malignant Neoplasm Cervix V77.91 Screening For Lipoid Disorders V76.19 Screening Breast Exam Malignant Neoplasms Other V15.06 Allegy To Insects And Arachnids 285.9 Anemia Unspec V06.1 Xfldpsxubj-Apvpnax-Zqkjpsfa Combined (DTaP) Office Visit 11/28/2011 2:30p [facility] Internal Haylee Cordero, 281.9 Anemia Deficiency Medicine M.D. Unspec 401.9 Hypertension Unspec 425.9 Cardiomyopathy Secondary Unspecified Office Visit 11/18/2011 11:40a [facility] Internal Roya French, 281.9 Anemia Deficiency Medicine M.D. Unspec 780.4 Dizziness & Giddiness 564.09 Constipation Other Office Visit 11/09/2011 9:40a Jadyn Collier 401.1 Hypertension Cardiology Sandra Turner Benign 281.9 Anemia Deficiency Unspec 564.09 Constipation Other 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 Office Visit 09/28/2011 Jadyn Collier 425.9 Cardiomyopathy 9:40a Cardiology Clarissa TurnerO. Secondary Unspecified 401.1 Hypertension Benign 281.9 Anemia Deficiency Unspec Office Visit 09/12/2011 10:45a [facility] Internal Haylee 564.09 Constipation Other Medicine Shanta Cordero 465.9 URI Upper Respiratory Infections Acute Unspec Sites Office Visit 09/05/2011 11:30a [facility] Internal Haylee 674.81 Post Medicine Shanta Cordero Cardiomyopathy Office Visit 08/15/2011 10:30a [facility] Internal Haylee 281.9 Anemia Deficiency Medicine Shanta Cordero Unspec 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 555.9 Enteritis Unspec Site Office Visit 07/07/2011 10:00a [facility] Internal Haylee 648.62 Cardiovascular Medicine Shanta Cordero Disease Other Preg Deliv W/ Compl 706.1 Acne Other 300.00 Anxiety State Unspec 623.5 Leukorrhea Not Spec as Infective 281.9 Anemia Deficiency Unspec Plan of Treatment Future Appointment(s):09/24/2018 11:30 am - Jose Gray MD, FACS at [facility]10/19/2018 12:40 pm - Justyn Gabriel M.D. at [facility]09/21/2018 - Melva Sue, [id number] HeadacheComments: Because you have rheumatoid arthritis, urate risk for a complication called giant cell arteritis. Which is an urgent condition and needs to be diagnosed with a biopsy soon as possible. As soon as thebiopsy is done, you will get started on steroids and see Dr. Gabriel.Referral:Shannan Hammond MD, Surgery, [id number] Essential (primary) hypertensionComments:Continue with your current medication.
--- OUTSIDE RECORDS SUMMARY | 2018-09-23 21:07 | XMS REPORT | Continuity of Care Document ---
:1965 External Reference #:[id number] Author Name Kortney Stevens Care Team Providers Name Role Phone Haylee Cordero MD Primary Care Physician Unavailable Payers Date Identification Numbers Payment Provider Subscriber Effective: 2011 Policy Number: [id number] Roni Reese Group Number: [id number] [address] PayID: [id number] [place] [address] Advance Directives Description No Information Available Problems Date Description Provider Status Onset: 07/07/2011 Cardiovascular Disease Other Haylee Cordero M.D. 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 [place] at [place] [facility] T1cNI stage 2 Onset: 10/04/2012 Essential hypertension Amira Turner D.O. Active Onset: 07/07/2011 Acne Haylee Cordero M.D. Active Onset: 09/28/2011 Restrictive cardiomyopathy secondary Amira Turner D.O. Active to granulomas Onset: 03/12/2012 Post Cardiomyopathy Amira Turner D.O. Active Onset: 07/29/2014 Anemia due to chronic blood loss Haylee Cordero M.D. 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 Active Onset: 09/23/2015 Cardiomyopathy, unspecified Traveling ECHO 1 Active Onset: 08/30/2016 Uterine leiomyoma Haylee Cordero M.D. Active Onset: 10/18/2017 Plantar fascial fibromatosis Osiel Augustine M.D. Active Onset: 10/18/2017 Low back pain Osiel Augustine M.D. Active Onset: 07/31/2018 Hypercholesterolemia Haylee Cordero M.D. Active Onset: 08/14/2018 Rheumatoid arthritis Haylee Cordero M.D. Active Family History Date Family Member(s) Observation Comments [...] Lives With Son Occupation Disabled medical leave Tobacco Use Start: Unknown Never Smoked Cigarettes Smoking Status Reviewed: 09/11/18 Never Smoked Cigarettes ETOH Use Never used alcohol Tobacco Use Start: Unknown Patient has never smoked Recreational Drug Use Never Used Drugs Exercise Type/Frequency Exercises regularly walking, 20-30 minutes 2-3 times weekly STD's HSV2 STD's Genital Herpes STD's HSV1 Allergies, Adverse Reactions, Alerts Date Description Reaction Status Severity Comments 04/15/2015 NKDA Active 07/07/2011 shrimp Anaphylaxis, Contact dermatitis Active Severe Medications Medication Date Status Form Strength Qnty SIG Indications Ordering Provider Prednisone 09/07/ Active Tablets 2.5mg 60tabs take 3 tabs M06.4 2018 daily for 10 Nery, days then 2 M.D. tabs daily for 10 days then 1 tab daily for 10 days then stop Terconazole 09/06/ Active Cream 0.4% 45gm one N76.0 Dvorah 2019 applicator taina Ayala MD every night at bedtime x 7 nights Valacyclovir 09/06/ Active Tablets 500mg 30tabs 1 tablet po N76.0 Dvorah HCL 2019 bid x 3 days jose cruz Ayala MD exacerbation Vitamin D-3 08/14/ Active Capsules 1000Unit 2 a day Haylee Cordero M.D. Folic Acid 08/10/ Active Tablets 1mg 90tabs take one D64.9 2018 capsule/table Nery, t daily by MJoy mouth Amlodipine 07/24/ Active Tablets 2.5mg 90tabs 1 by mouth I10 Melva Besylate 2018 every day MD Vikram I42.9 Lisinopril 07/24/2018 Active Tablets 30mg 90tabs 1 by mouth I42.9 Haylee Cordero, every day M.D. I10 Valtrex 09/25/2017 Active Tablets 500mg 10tabs 1 by mouth A60.04 Haylee twice a day Cordero, x 5 days as M.D. needed Fluticasone 04/15/2015 Active Suspension 50mcg/A 16gm 1 squirts J30.[address] each Cordero, nostril M.D. every day Ferrous 11/28/2011 Active Tablets 324(38F 60tabs take 1 D53.9 Haylee Gluconate e) mg tablet 2 Cordero, times a day M.D. Multivitamins Active Capsules 1 by mouth Unknown every day Percocet Active Tablets 5-325mg 1 tab by Unknown mouth every 6 hours as needed for pain. Loratadine Active Capsules 10mg once a day Unknown for allergies as needed Carvedilol Active Tablets 25mg take 1 I42.9 Unknown tablet by mouth twice a day I10 Trazodone HCL Active Tablets 50mg take 1/2 tab by Unknown mouth at bedtime as needed Tamoxifen Citrate Active Tablets 20mg Take 1 Tablet By Unknown Mouth Every Day Methotrexate 08/10/2018 - Hx Tablets 2.5mg 30t take 5 R7 Justyn Unknown abs capsules/tablets 6. Nery, by mouth once 0 M.D. weekly on Fridays Prednisone 08/10/2018 - Hx Tablets 10mg 60t Take one M0 Justyn 09/07/2018 abs capsule/tablet 6. Nery, daily by mouth 4 M.D. Prednisone 07/27/2018 - Hx Tablets 5mg 90t Please take 4 M0 Justyn 08/10/2018 abs tabs daily for 5 6. Nery, days, then 3 4 M.D. tabs daily for 5 days then 2 tabs daily for 5 days than 1 tab daily for 5 days then discontinue Metrogel-Vaginal 04/18/2018 - Hx Gel 0.75% 5da one applicator Dvorah 12/31/2017 ys vaginally every MD Jamie night at bedtime x 5 nights Fluconazole 04/17/2018 - Hx Tablets 150mg 2ta one tablet by Dvorah 04/20/2018 bs mouth, then MD Jamie repeat in 3 days Nitrofurantoin 01/05/2018 - Hx Capsules 100mg 10c Take one tablet Sherri Monohyd Macro 03/21/2018 aps by mouth twice Cotton, daily for 5 M.D. days. Fluconazole 01/02/2018 - Hx Tablets 150mg 2ta take one tablet N7 Jamal 03/21/2018 bs by mouth now. if 6. Pachikara, symptoms do not 0 M.D. improve take another tablet by mouth 3 days later. Fluconazole 09/25/2017 - Hx Tablets 150mg 2ta one by mouth september B3 Britt 03/22/2018 bs repeat in 3 days 7. Varn, N.P. as needed 3 Hydrocodone-Aceta 09/18/2017 - Hx Tablets 5-325mg 20t 1 or 2 tablets Jackie Manish minophen 09/20/2017 abs by mouth every MD Yemi 4-6 hours as needed for moderately severe pain Doxycycline 01/23/2017 - Hx Tablets 100mg 28t 1 tablet twice a Haylee Hyclate 02/06/2017 abs day x 14 days Shanta Cordero Metronidazole 10/20/2016 - Hx Gel 0.75% 1un apply Haylee 10/27/2016 its intravaginally Cordero, once a day x 7 M.D. days did not finish Amlodipine 05/03/2016 - Hx Tablets 2.5mg 90t 1 by mouth every I1 Robert Andrea Besylate 03/21/2018 abs day 0 Shanta Baez I42.9 Hydroxyzine HCL 05/03/2016 - Hx Tablets 25mg 14tabs 1 tab by mouth F41.9 Haylee Unknown every night as Gil, needed for M.D. anxiety (pt is not taking) Triamcinolone 01/27/2016 - Hx Lotion 0.1% 60ml apply thin film L30.9 Hubert Acetonide 05/03/2016 topically twice Faroese, a day PETROL [employer]IVER Doxycycline 03/17/2015 - Hx Capsules 100mg 20caps 1 by mouth J01.90 Haylee Hyclate 04/14/2015 twice a day Cordero, M.D. Anusol-HC 02/23/2015 - Hx Suppository 25mg 5units apply K64.9 Haylee 04/14/2015 intrarectally Gil, every day x 5 M.D. days Colace 02/23/2015 - Hx Capsules 100mg 30caps 1 by mouth K59.09 Haylee 01/25/2016 daily as needed Gil for M.DSelina constipation Lisinopril 02/12/2015 - Hx Tablets 40mg 90tabs take 1 tab by I42.9 Qutaybeh 03/21/2018 mouth daily S. Shanta Alfaro I10 Lisinopril 11/27/2014 - Hx Tablets 30mg 30tabs 1 by mouth Qutaybchevy S. 02/12/2015 every day Shanta Alfaro Mebendazole 01/16/2013 - Hx Chewtabs 100mg 1units take it once , 12 Haylee 01/16/2013 may repeat in 3 8. Shanta Cordero wks if symptoms 9 persist Albenza 01/16/2013 - Hx Tablets 200mg 2tabs take 2 tab once Haylee 11/26/2013 , may repeat in Shanta Cordero 3 wks if symptoms persist Claritin 01/02/2012 - Hx Capsules 10mg 10caps 1 po qd as V1 Haylee 04/17/2012 needed 5. Shanta Cordero 06 Miralax 11/18/2011 - Hx Powder 3350NF 238gm 17 gm qd mixed 56 Roya 04/17/2012 w/ 8 oz 4. Shanta French water/juice 09 once per day Metrolotion 11/11/2011 - Hx Lotion 0.75% 1units apply bid Haylee 08/27/2012 Shanta Cordero Metamucil 09/12/2011 - Hx Powder 48.57% 30units Once A Day 56 Haylee 11/26/2013 4. Shanta Cordero 09 Colace 09/12/2011 - Hx Capsules 100mg 30caps 1 tab bid as 56 Haylee 11/28/2011 needed for 4. Shanta Cordero constipation 09 Metrogel 07/07/2011 - Hx Gel 1% 1units apply to face 70 Haylee 11/28/2011 bid as needed 6. Shanta Cordero 1 Lisinopril - Hx Tablets 20mg 30tabs 1 po qd Haylee 03/12/2012 Shanta Cordero Digoxin - Hx Tablets 0.125mg 90tabs 1 po qd Haylee 03/12/2012 Shanta Cordero Ferrous - Hx Tablets 325(65F 1 po qd Unknown Sulfate 01/02/2012 e) mg Minocycline - Hx Capsules 100mg 20caps 1 po q bid Unknown HCL 07/11/2011 Anant Aspirin - Hx Tablets DR 81mg 1 po qd Unknown Ec Low Dose 03/11/2014 Ondansetron - Hx Tablets 4mg 20tabs po tid prn Unknown Odt 09/28/2011 Dispers Oxycodone/Acet - Hx Tablets 5-325mg 40tabs 1-2 tabs po q 4 Unknown aminophen 09/28/2011 hrs prn pain Lisinopril - Hx Tablets 20mg 30tabs take 1 tablet Qutaybeh S. 11/27/2014 by mouth once Maghaydah, daily M.D. Red Yeast Rice - Hx Capsules 600mg 1 by mouth Unknown 03/21/2018 twice a day Zithromax - Hx Tablets 500mg one by mouth Unknown 07/27/2016 one per day Macrobid - Hx Capsules 100mg 1 tab by mouth Unknown 07/27/2016 twice a day x 7 days Biotin - Hx Capsules 1mg take one Unknown 08/29/2016 capsule/tablet daily by mouth Carvedilol - Hx Tablets 25mg 180tabs take 1 tablet I4 Qutaybeh S. 03/21/2018 by mouth twice 2. Maghaydah, a day 9 M.D. I10 Biotin Maximum - Hx Capsules 5000mcg 1 po qd Unknown Strength 03/21/2018 (OTC) Hydrocodone-Acet - Hx Tablets 5-325mg 1 or 2 tabs Unknown aminophen 03/21/2018 by mouth every 6-8 hours as needed for pain Lisinopril - Hx Tablets 10mg 30tab 1 by mouth I42.9 Dalia S. 07/24/2018 s every day Yemi N.P. I10 Carvedilol - Hx Tablets 3.125mg 1 tab by mouth I42.9 Unknown 07/24/2018 twice a day I10 Zofran - Hx Tablets 4mg take 1 by Unknown 07/31/2018 mouth every 4 hours as needed for nausea Prochlorperazine Maleate - Hx Tablets 5mg 1 by mouth Unknown 07/31/2018 every 4 hours as needed for nausea Naproxen - Hx Tablets 250mg 1 by mouth Unknown 08/14/2018 twice a day Immunizations CPT Code Status Date Vaccine Lot # [id number] Given 08/14/2018 Pneumococcal Conjugate Vaccine 13 Valent For [id number] Intramuscular Use 32326 Given 02/05/2018 Influenza Virus Vaccine, Quadrivalent, Split, Preservative Free 45516 Given 05/03/2016 Influ Virus Vaccine, Quadrivalent, Split Virus, [place] [id number] [address] Given 04/15/2015 Influenza Virus Vaccine, Quadrivalent, Split, [id number] Preservative Free [id number] Given 04/17/2012 Fluvirin Im 3Yrs And Older [id number] Given 01/02/2012 Tdap - Tetanus/Diptheria/Acellular Pertussis [id number] Vital Signs Date Vital Result Comment 09/11/2018 9:07am Heart Rate 72 /min BP [...] Mass Index) 23.8 kg/m2 Last Menstrual Period [id number] 08/14/2018 9:11am Height 70 inches 5'10" Weight [...] Mass Index) 24.4 kg/m2 Last Menstrual Period [id number] 03/22/2018 3:30pm Weight 174.00 lb with shoes [...] Result H/L Range Note Laboratory test 09/07/2018 [facility] Erythrocyte Sed 24 mm/Hr N 0-29 [address] [place] [address] [phone] C Reactive Protein < 1.00 mg/L N <8.01 2 Comp Metabolic Panel 09/07/2018 [facility] Sodium 137 mmol/L N 135-[address] [place] [address] [phone] Potassium 4.0 mmol/L N 3.5-5.0 Chloride 104 [...] 111.8 >60 3 CBC Auto Diff 09/07/2018 [facility] White Blood 4.7 10^3/uL N 3.5-10.[address] [place] [address] [phone] Red Blood Count 4.19 10^6/uL N 3.70-4.87 [...] Red Blood Cells % 0 Laboratory 09/06/2018 [facility] Gardnerella/Yeast: SEE RESULT 4 test finding [address] [place] [address] [phone] GC/Chlamydia 09/06/2018 [facility] Chlamydia trachomatis Negative Negative Amplified Rna [address] [place] [address] [phone] Neisseria gonorrhoeae (GC) Rna Negative Negative Laboratory test 09/06/2018 [facility] Trichomonas Negative Negative [address] [place] [address] [phone] Lipid Profile 07/28/2018 [facility] Triglycerides 55 mg/dL 6 (Trig/Chol/HDL) [address] [place] [address] [phone] Cholesterol 236 mg/dL 7 HDL Cholesterol 55.7 mg/dL 8 LDL Cholesterol 169 mg/dL 9 CBC Auto Diff 07/28/2018 [facility] White Blood 3.7 10^3/uL N 3.5-10.[address] [place] [address] [phone] Red Blood Count 3.96 10^6/uL Low 4.00-5.40 [...] Cells % 0.2 Basic Metabolic Panel 07/28/2018 [facility] Sodium 137 mmol/L N 135-[address] [place] [address] [phone] Potassium 3.8 mmol/L N 3.5-5.0 Chloride 103 mmol/L N 101-111 Co2 Carbon Dioxide 26 mmol/L N 22-32 Anion Gap 8 mmol/L N 2-11 Glucose 91 mg/dL N 70-100 Blood Urea Nitrogen 15 mg/dL N 6-24 Creatinine 0.47 mg/dL Low 0.51-0.95 BUN/Creatinine Ratio 31.9 High 8-20 Calcium 10.0 mg/dL N 8.6-10.3 Egfr Non- 139.2 >60 Egfr 168.4 >60 10 Laboratory test 07/28/2018 [facility] Angiotensin 14 U/L 8 - 53 [address] [place] [address] [phone] Aso (Antistreptolysin O) Titer Negative IU/mL <200 Iu/mL 12 Creatine Kinase(CK) 257 U/L High 10-223 Anca AB Ser If 07/28/2018 [facility] C-Anca Negative Negative [address] [place] [address] [phone] P-Anca Positive Abnormal Negative 13 Cardiolipin 07/28/2018 [facility] Phospholipid Ab 20.9 MPL High 14 Igg/Igm [address] IgM, [place] [address] [phone] Phospholipid Ab IgG < 9.4 GPL 15 Laboratory test 07/28/2018 [facility] Sickle Cell Negative Negative finding [address] Screen [place], [place] [id number] [phone] Complement C3 158 mg/dL 75 - 175 16 Complement C4 27 mg/dL 14 - 40 17 Anti Double Stranded Dna AB <12.3 IU/mL 18 Cryoglobulin & 07/28/2018 [facility] Cryoglobulin Negative Negative [address] %ppt [place], [place] [id number] [phone] Cryofibrinogen Negative Negative 20 Laboratory test 07/28/2018 [facility] Lyme Screen Negative Negative finding [address] W/ [place] [address] WB [phone] C Reactive Protein 17.16 mg/L High <8.01 Erythrocyte Sed Rate 67 mm/Hr High 0-30 21 Rheumatoid Factor 49 IU/mL High <15 Cyclic Citrullinated Pep Igg >250.0 U Abnormal 22 Body Fluid Cell 07/27/2018 [facility] Body Fluid Synovial Fluid Count [address] [place] [address] [phone] Body Fluid Appearance Cloudy Body Fluid Color Yellow Body Fluid Volume 4 mL Body Fluid WBC 2099 /mcL N 23 Body Fluid RBC 1627 /mcL Body Fluid Neutrophils 15 % Body Fluid Lymph 75 % Body Fluid [place] 10 % Body Fluid Total Cells Counted 100 Fluid Reviewed By MD (SEE NOTE) 24 Laboratory test 07/27/2018 [facility] Body Fluid SEE RESULT [address] C&S [place], [place] [address] [phone] Miscellaneous Test See Comment 26 Laboratory test 05/18/2018 [facility] Culture Genital & SEE RESULT [address] Sensitivity [place], [place] [address] [phone] Laboratory test 05/18/2018 [facility] Culture Genital & SEE RESULT [address] Sensitivity [place], [place] [address] [phone] Laboratory test 05/18/2018 [facility] Culture Genital & SEE RESULT [address] Sensitivity [place], [place] [address] [phone] Laboratory test 05/18/2018 [facility] Fungal SEE RESULT [address] [place] [address] [phone] Laboratory test 05/18/2018 [facility] Culture Genital & SEE RESULT [address] [place] [address] [phone] CBC Auto Diff 05/03/2018 [facility] White Blood Count 3.4 10^3/ uL Low 3.5- [address] 10.8 [place] [address] [phone] Red Blood Count 3.05 10^6/uL Low 4.00-5.40 [...] Cells % 0.3 Comp Metabolic Panel 05/03/2018 [facility] Sodium 138 mmol/L N 135-[address] [place] [address] [phone] Potassium 3.7 mmol/L N 3.5-5.0 Chloride 105 [...] >60 Egfr 127.5 >60 32 Laboratory 04/17/2018 [facility] Gardnerella/Yeast: SEE RESULT 33, 34 test finding [address] [place] [address] [phone] Cytology SEE RESULT BELOW 35 Urine Culture And 04/17/2018 [facility] Urine SEE RESULT 36 , [address] [place] [address] [phone] CBC Auto Diff 04/13/2018 [facility] White Blood 5.5 10^3/uL N 3.5-[address] Count 0.8 [place], [place] [address] [phone] Red Blood Count 3.59 10^6/uL Low 4.00-5.40 [...] Cells % 0.3 Comp Metabolic Panel 04/13/2018 [facility] Sodium 136 mmol/L N 135-[address] [place] [address] [phone] Potassium 3.9 mmol/L N 3.5-5.0 Chloride 104 [...] >60 Egfr 130.0 >60 38 GC/Chlamydia 04/02/2018 [facility] Chlamydia Negative Negative Amplified Rna [address] [place] [address] [phone] Neisseria gonorrhoeae (GC) Rna Negative Negative Urine Culture And 04/02/2018 [facility] Urine Culture SEE RESULT [address] [place] [address] [phone] Urinalysis Profile 04/02/2018 [facility] Urine Color Yellow [address] [place] [address] [phone] Urine Appearance Cloudy Urine Specific [place] 1.010 N 1.010-1.030 Urine pH 6.0 N 5-9 Urine Urobilinogen Negative Negative Urine Ketones Negative Negative Urine Protein Negative Negative Urine Leukocytes Negative Negative Urine Blood Negative Negative Urine Nitrite Negative Negative Urine Bilirubin Negative Negative Urine Glucose Negative Negative Laboratory test 03/23/2018 [facility] Hemoglobin A1c 5.8 % High 4.0-5.6 [address] (Glyco HGB) [place], [place] [address] [phone] Comp Metabolic 03/23/2018 [facility] Sodium 138 N 135-[address] mmol/[place] [address] [phone] Potassium 3.8 mmol/L N 3.5-5.0 Chloride 104 [...] 130.0 >60 41 CBC Auto Diff 03/23/2018 [facility] White Blood 3.6 10^3/uL N 3.5-10.[address] [place] [address] [phone] Red Blood Count 3.47 10^6/uL Low 4.00-5.40 [...] Cells % 0.5 Comp Metabolic Panel 03/02/2018 [facility] Sodium 137 mmol/L N 135-[address] [place] [address] [phone] Potassium 3.8 mmol/L N 3.5-5.0 Chloride 105 [...] 132.6 >60 42 CBC Auto Diff 03/02/2018 [facility] White Blood 4.3 10^3/uL N 3.5-10.[address] [place] [address] [phone] Red Blood Count 3.63 10^6/uL Low 4.00-5.40 [...] Blood Cells % 0.3 Laboratory test 02/27/2018 [facility] Culture Genital & SEE RESULT [address] [place] [address] [phone] CBC Auto Diff 02/09/2018 [facility] White Blood Count 4.7 10^3/ uL N 3.5-[address] 0.8 [place] [address] [phone] Red Blood Count 3.61 10^6/uL Low 4.00-5.40 [...] Cells % 0.3 Comp Metabolic Panel 02/09/2018 [facility] Sodium 137 mmol/L N 135-[address] [place] [address] [phone] Potassium 3.6 mmol/L N 3.5-5.0 Chloride 103 [...] Egfr 100.1 >60 44 CBC Auto 01/19/2018 [facility] White Blood 12.6 10^3/uL High 3.5-10.[address] [place] [address] [phone] Red Blood Count 3.97 10^6/uL Low 4.00-5.40 [...] Cells % 0 Comp Metabolic Panel 01/19/2018 [facility] Sodium 137 mmol/L N 135-[address] [place] [address] [phone] Potassium 3.6 mmol/L N 3.5-5.0 Chloride 104 [...] Egfr 101.7 >60 45 Laboratory test 01/17/2018 [facility] HCG 1.34 mIU/mL [address] [place] [address] [phone] Urine Culture And 01/02/2018 [facility] Urine Culture SEE RESULT [address] [place] [address] [phone] GC/Chlamydia 01/02/2018 [facility] Chlamydia Negative Negative Amplified Rna [address] [place] [address] Rna [phone] Neisseria gonorrhoeae (GC) Rna Negative Negative Ua Routine 01/02/2018 [facility] Ua Specific [place] 1.000 Ua PH 6 Ua Color light yellow Ua Appera clear Ua WBC large Ua Protein trace Ua Glucose neg Ua Ketones neg Ua Bilirubin neg Ua Urobilinogen neg Ua Nitrite neg Ua Occult Blood trace Order 09/15/2017 [facility] EKG <pending> Laboratory test 08/28/2017 [facility] Surgical SEE RESULT 48, [address] [place] [address] [phone] Inr/Protime 08/14/2017 [facility] Inr 0.92 N 0.77- [address] 1.02 [place] [address] [phone] Laboratory test 08/14/2017 [facility] Partial Thrombo 29.9 seconds N 26.0- finding [address] Time PTT 36.3 [place] [address] [phone] Lactic Acid 0.7 mmol/L N 0.5-2.0 50 Type & Screen 08/14/2017 [facility] Patient Blood Type O Positive [address] [place] [address] [phone] Antibody Screen NEGATIVE Laboratory test 08/14/2017 [facility] Blood Culture SEE RESULT [address] [place] [address] [phone] Urinalysis 08/14/2017 [facility] Urine Appearance Cloudy Profile [address] [place] [address] [phone] Urine Specific [place] 1.009 Low 1.010-1.030 Urine pH 7.0 N [...] Color Red Abnormal Laboratory test finding 08/14/2017 [facility] Amylase 37 U/L N 29-[address] [place] [address] [phone] Lipase 26 U/L N 11.0-82.0 CBC Auto Diff 08/14/2017 [facility] White Blood 5.3 10^3/uL N 3.5-10.[address] [place] [address] [phone] Red Blood Count 3.74 10^6/uL Low 4.0-5.4 [...] Cells % 0 Comp Metabolic Panel 08/14/2017 [facility] Sodium 135 mmol/L N 133-[address] [place] [address] [phone] Potassium 3.5 mmol/L N 3.5-5.0 Chloride 101 [...] 101.6 >60 52 CBC Auto Diff 08/11/2017 [facility] White Blood 3.9 10^3/uL N 3.5-10.[address] [place] [address] [phone] Red Blood Count 3.98 10^6/uL Low 4.0-5.4 [...] Blood Cells % 0.1 Laboratory test 08/11/2017 [facility] Partial 29.7 seconds N 26.0-36.3 [address] [place] [address] PTT [phone] Inr/Protime 08/11/2017 [facility] Inr 0.98 N 0.77-1.[address] [place] [address] [phone] Comp Metabolic 08/11/2017 [facility] Sodium 134 mmol/L N 133- [address] [place] [address] [phone] Potassium 3.6 mmol/L N 3.5-5.0 Chloride 102 [...] Egfr 101.6 >60 55 Laboratory test 08/11/2017 [facility] HCG < 0.60 [address] mIU/[place] [address] [phone] Basic Metabolic 06/02/2017 [facility] Sodium 132 mmol/L Low 133-[address] [place] [address] [phone] Potassium 3.8 mmol/L N 3.5-5.0 Chloride 102 mmol/L N 101-111 Co2 Carbon Dioxide 24 mmol/L N 22-32 Anion Gap 6 mmol/L N 2-11 Glucose 109 mg/dL High 70-100 Blood Urea Nitrogen 18 mg/dL N 6-24 Creatinine 0.70 mg/dL N 0.51-0.95 BUN/Creatinine Ratio 25.7 High 8-20 Calcium 9.6 mg/dL N 8.6-10.3 Egfr Non- 88.6 >60 Egfr 113.9 >60 57 Ua Routine 01/31/2017 [facility] Ua Specific [place] 1.015 Ua PH 5 Ua Color light yellow Ua Appera clear Ua WBC - Ua Protein - Ua Glucose norm Ua Ketones - Ua Bilirubin - Ua Urobilinogen norm Ua Nitrite - Ua Occult Blood - Basic Metabolic 11/23/2016 [facility] Sodium 132 mmol/L Low 133-[address] [place] [address] [phone] Potassium 4.3 mmol/L N 3.5-5.0 Chloride 102 mmol/L N 101-111 Co2 Carbon Dioxide 27 mmol/L N 22-32 Anion Gap 3 mmol/L N 2-11 Glucose 102 mg/dL High 70-100 Blood Urea Nitrogen 18 mg/dL N 6-24 Creatinine 0.78 mg/dL N 0.51-0.95 BUN/Creatinine Ratio 23.1 High 8-20 Calcium 9.7 mg/dL N 8.6-10.3 Egfr Non- 78.2 N >60 Egfr 100.5 N >60 58 Lipid Profile 11/23/2016 [facility] Triglycerides 54 mg/dL N 59 (Trig/Chol/HDL) [address] [place] [address] [phone] Cholesterol 210 mg/dL N 60 HDL Cholesterol 65.9 mg/dL N 61 LDL Cholesterol 133 mg/dL N 62 HIV 1/2 AB 11/23/2016 [facility] HIV 1 2 Nonreactive N Nonreactive [address] [place] [address] [phone] Ua Routine 10/19/2016 [facility] Ua Specific 1.000 [place] Ua PH 7 Ua Color LIGHT YELLOW Ua Appera CLEAR Ua WBC NEGATIVE Ua Protein NEGATIVE Ua Glucose NORMAL Ua Ketones NEGATIVE Ua Bilirubin NEGATIVE Ua Urobilinogen NORMAL Ua Nitrite NEGATIVE Ua Occult Blood NEGATIVE Laboratory 10/19/2016 [facility] Gardnerella/Yeast: SEE RESULT 64, 65 test finding [address] [place] [address] [phone] Trichomonas Vaginalis Rna Negative N Negative 66 GC/Chlamydia 10/19/2016 [facility] Chlamydia Negative N Negative Amplified Rna [address] [place] [address] [phone] Neisseria gonorrhoeae (GC) Rna Negative N Negative Laboratory test 10/19/2016 [facility] Test negative finding Urine Laboratory test 08/18/2016 [facility] Amylase 47 U/L N 29-[address] [place] [address] [phone] Lipase 33 U/L N 11.0-82.0 C Reactive Protein < 1.00 mg/L N < 5.00 67 Lactic Acid 0.4 mmol/L Low 0.5-2.0 68 HCG < 0.60 mIU/mL N 69 Comp Metabolic Panel 08/18/2016 [facility] Sodium 133 mmol/L N 133-[address] [place] [address] [phone] Potassium 3.8 mmol/L N 3.5-5.0 Chloride 103 [...] N >60 70 CBC Auto Diff 08/18/2016 [facility] White Blood 3.5 10^3/uL N 3.5-10.[address] [place] [address] [phone] Red Blood Count 4.09 10^6/uL N 4.0-5.4 [...] Cells % 0.1 N Urinalysis Profile 08/18/2016 [facility] Urine Color Yellow N [address] [place] [address] [phone] Urine Appearance Cloudy N Urine Specific [place] 1.010 N 1.010-1.030 Urine pH 8.0 N 5-9 Urine Urobilinogen Negative N Negative Urine Ketones Negative N Negative Urine Protein Negative N Negative Urine Leukocytes Negative N Negative Urine Blood Negative N Negative Urine Nitrite Negative N Negative Urine Bilirubin Negative N Negative Urine Glucose Negative N Negative Laboratory 08/18/2016 [facility] Lactic Acid 0.4 mmol/L Low 0.5-2.0 71 test finding [address] [place], [place] [address] [phone] Laboratory 08/18/2016 [facility] Gardnerella/Ye SEE RESULT 72, test finding [address] ast: Vaginal BELOW [address] [place] [address] Dna [phone] GC/Chlamydia 08/18/2016 [facility] Chlamydia Negative N Negative Amplified Rna [address] [place] [address] Rna [phone] Neisseria gonorrhoeae (GC) Rna Negative N Negative CBC Auto Diff 06/04/2016 [facility] White Blood 5.9 10^3/uL N 3.5-10.[address] [place] [address] [phone] Red Blood Count 4.18 10^6/uL N 4.0-5.4 [...] % 0 N Comp Metabolic Panel 06/04/2016 [facility] Sodium 128 mmol/L Low 133-[address] [place] [address] [phone] Potassium 3.7 mmol/L N 3.5-5.0 Chloride 105 [...] 104.0 N >60 74 Laboratory test 06/04/2016 [facility] C Reactive 4.17 mg/L N < 5.00 [address] [place] [address] [phone] Urinalysis 06/04/2016 [facility] Urine Color Sher N Profile [address] [place] [address] [phone] Urine Appearance Cloudy N Urine Specific [place] 1.012 N 1.010-1.030 Urine pH 6.0 N [...] Epithelial Cell Present Abnormal Absent Laboratory 06/04/2016 [facility] Gardnerella/Yeast: SEE RESULT 77 test finding [address] [place] [address] [phone] Laboratory 06/04/2016 [facility] Trichomonas Negative N Negative 78 test finding [address] [place] [address] [phone] GC/Chlamydia 06/04/2016 [facility] Chlamydia Negative N Negative Amplified Rna [address] [place] [address] [phone] Neisseria gonorrhoeae (GC) Rna Negative N Negative Urine Culture And 06/04/2016 [facility] Urine Culture SEE RESULT [address] [place] [address] [phone] CBC Auto Diff 05/07/2016 [facility] White Blood 4.4 10^3/uL N 3.5-[address] Count 0.8 [place] [address] [phone] Red Blood Count 4.12 10^6/uL N 4.0-5.4 [...] Cells % 0 N Laboratory test 05/07/2016 [facility] TSH (Thyroid 0.23 Low 0.34-5.60 [address] Stim Horm) mcIU/[place] [address] [phone] Comp Metabolic 05/07/2016 [facility] Sodium 133 mmol/L N 133- [address] [place] [address] [phone] Potassium 4.2 mmol/L N 3.5-5.0 Chloride 102 [...] N >60 82 Basic Metabolic Panel 01/26/2016 [facility] Sodium 135 mmol/L N 133-[address] [place] [address] [phone] Potassium 3.9 mmol/L N 3.5-5.0 Chloride 102 mmol/L N 101-111 Co2 Carbon Dioxide 28 mmol/L N 22-32 Anion Gap 5 mmol/L N 2-11 Blood Urea Nitrogen 15 mg/dL N 6-24 Creatinine 0.80 mg/dL N 0.51-0.95 BUN/Creatinine Ratio 18.8 N 8-20 Calcium 9.8 mg/dL N 8.6-10.3 Egfr Non- 76.2 N >60 Egfr 98.0 N >60 83 Lipid Profile 01/26/2016 [facility] Triglycerides 49 mg/dL N 84 (Trig/Chol/HDL) [address] [place] [address] [phone] Cholesterol 171 mg/dL N 85 HDL Cholesterol 65.0 mg/dL N 86 LDL Cholesterol 96 mg/dL N 87 Laboratory test 01/26/2016 [facility] Glucose 85 mg/dL N 70- [address] [place] [address] [phone] Laboratory test 01/25/2016 [facility] HCG < 0.60 N 88 finding 101 mIU/[place] [address] [phone] Blood Urea Nitrogen BUN 16 mg/dL N 6-24 Creatinine 01/25/2016 [facility] Creatinine 0.85 mg/dL N 0.51- 0.[address] [place] [address] [phone] Egfr Non- 71.1 N >60 Egfr 91.4 N >60 89 Ua Routine 03/17/2015 [facility] Ua Specific [place] 1.005 Ua PH 8.5 Ua Color sher Ua Appera clear Ua WBC neg Ua Protein neg Ua Glucose neg Ua Ketones trace Ua Bilirubin neg Ua Urobilinogen normal Ua Nitrite neg Ua Occult Blood large 200+ Laboratory test 02/24/2015 [facility] Hemoglobin A1c 5.6 % N Less than [address] (Glyco HGB) 6.0 [place] [address] [phone] Comp Metabolic 02/24/2015 [facility] Sodium 136 N 133-[address] mmol/[place] [address] [phone] Potassium 4.0 mmol/L N 3.5-5.0 Chloride 103 [...] 90.6 N >60 91 CBC Auto 02/24/2015 [facility] White Blood 2.8 10^3/uL Low 4.8 -10.[address] [place] [address] [phone] Red Blood Count 3.83 10^6/uL Low 4.0-5.4 [...] % 0.1 N Comp Metabolic Panel 12/10/2013 [facility] Sodium 136 mmol/L N 133-145 [address] [place] [address] [phone] Potassium 4.0 mmol/L N 3.7-5.6 Chloride 104 [...] 97.5 N >60 93 Lipid Profile 12/10/2013 [facility] Triglycerides 49 mg/dL N 94 (Trig/Chol/HDL) [address] [place] [address] [phone] Cholesterol 196 mg/dL N 95 HDL Cholesterol 60.5 mg/dL N 96 LDL Cholesterol 126 mg/dL N 97 CBC Auto 12/10/2013 [facility] White Blood 3.6 10^3/uL Low 4.8 -10.[address] [place] [address] [phone] Red Blood Count 3.89 10^6/uL Low 4.0-5.4 [...] Cells % 0.1 N Urinalysis W/Microscopic 09/21/2012 [facility] Urine Color Yellow [address] [place] [address] [phone] Urine Appearance Clear Urine Specific [place] 1.010 1.010-1.030 Urine Esterase Negative Negative Urine Nitrate Negative Negative Urine Urobilinogen Negative E.U./dL Negative Urine Protein Negative mg/dL Negative Urine pH 7.0 5-9 Urine Blood Negative Negative Urine Ketones Negative mg/dL Negative Urine Bilirubin Negative Negative Urine Glucose Negative mg/dL Negative Urine Epithelial Cells 1+ Squamous /hpf None Seen Lipid Profile 09/21/2012 [facility] Triglycerides 29 mg/dL Low 40-200 (Trig/Chol/HDL) [address] [place] [address] [phone] Cholesterol 207 mg/dL High Less than 200 HDL Cholesterol 53 mg/dL 40-60 98 Cholesterol/HDL Ratio 3.9 Average 1-4.44 LDL Cholesterol 148.2 mg/dL High Less Than 100 99 CBC Auto 09/21/2012 [facility] White Blood 4.0 10^3/uL Low 4.8 -10.[address] [place] [address] [phone] Red Blood Count 3.77 10^6/uL Low 4.0-5.4 [...] Blood Cells % 0.1 Laboratory test 09/21/2012 [facility] TSH (Thyroid 0.46 0.34- 5.60 [address] Stimulating miu/[place] [address] Horm) [phone] Comp Metabolic 09/21/2012 [facility] Sodium 136 mmol/L 133- [address] [place], [place] [phone] Potassium 4.0 mmol/L 3.5-5.0 Chloride 105 mmol/L [...] Egfr 99.3 >60 101 Laboratory test 08/27/2012 [facility] Cytology RUN DATE: [address] 08/31/ <[place] [address] NOTE> [phone] Human Papilloma 08/27/2012 [facility] Human CERV Virus [address] [place] [address] Source [phone] Human Papillomavirus High Risk Negative Negative 103 Laboratory test 04/17/2012 [facility] Affirm (SEE NOTE) 104 finding [address] [place] [address] Probe [phone] CBC Auto Diff 01/24/2012 [facility] White Blood 4.4 CUMM Low 4.8-[address] Count .8 [place] [address] [phone] Red Cell Count 3.79 CUMM Low 4.2-5.4 [...] Abs Basophils 0 0-0.2 Retic Count 01/24/2012 [facility] Reticulocyte Count 1.27 % 0.5-1.5 [address] [place] [address] [phone] Corrected Retic 0.9 % 0.5-1.5 Retic Index 0.6 Mean Retic Volume 104.6 Immature Retic Fraction 0.36 RBC Retic Count 3.79 CUMM Low 4.6-6.2 Hematocrit For Retic Coun 32 % Low 35-47 Laboratory test finding 01/24/2012 [facility] LDH 141 U/L 95- 185 [address] [place] [address] [phone] Vitamin B12 777 pg/mL 180-914 Erythropoietin 8.1 mIU/mL 2.6 - 18.5 105 CBC Auto Diff 01/04/2012 [facility] White Blood 5.0 CUMM 4.8- 10.8 [address] [place] [address] [phone] Red Cell Count 3.69 CUMM Low 4.2-5.4 Hemoglobin 11.2 g/dL Low 12.0-16.0 Hematocrit 32 % Low 35-47 Mean Corpuscular Volume 86 um3 79-97 Mean Corpuscular Hemoglob 30 pg 27-31 Mean Corpuscular HGB Cone 36 g/dL 32-36 Redcell Distribution WDTH 13 % 10.5-15 Platelet Count 284 CUMM 150-450 Mean Platelet Volume 6.9 um3 Low 7.4-10.4 Absolute Neutrophil Count 2.9 1.5-7.7 Lipid Profile 01/04/2012 [facility] Triglyceride 67 mg/dL 40- 200 (Trig/Chol/HDL) [address] [place] [address] [phone] Cholesterol 213 mg/dL High Less Than 200 106 High Density Lipoprotein 60 mg/dL 40-60 107 Cholesterol/HDL Ratio 3.55 AVERAGE 1-4.44 Low Density Lipoprotein 140 mg/dL High Less Than 100 108 Laboratory test 01/04/2012 [facility] TSH 0.66 0.34-5.60 finding [address] [facility] [address] [phone] Hemoglobin 01/04/2012 [facility] Hemoglobin A2 2.7 % 2.0-3.3 Electropheresis [address] [place] [address] [phone] Hemoglobin F 0.2 % 0.0-0.9 Hemoglobin A 97.1 % 95.8-98.0 Hemoglobin Variant 0.0 % () 109 HGB Electrophoresis Interp . () 110 Celiac Panel 01/04/2012 [facility] Endomysial Abs Negative Negative 111 [address] [place] [address] [phone] Gliadin Igg <10.0 U () 112 Gliadin Iga <10.0 U () 113 Reticulin AB Negative Negative 114 Manual Differential 01/04/2012 [facility] Polysegmented 53 % 38-[address] [place] [address] [phone] Lymphocyte 39 % 25-47 Monocyte 6 % 0-13 Eosinophil 1 % 0-6 Basophil 1 % 0-2 Laboratory test 01/02/2012 [facility] Cytology <SEE [address] NOTE> [place] [address] [phone] Comp Metabolic 11/28/2011 [facility] Sodium 135 mmol/L 135- Panel [address] [place] [address] [phone] Potassium 4.1 mmol/L 3.5-5.0 Chloride 101 mmol/L [...] 116.4 > 60 118 Laboratory test 11/28/2011 [facility] Folic Acid 23.3 NG/ML See Below [address] [place] [address] [phone] Vitamin B12 729 pg/mL 180-914 Iron & Iron Binding 11/28/2011 [facility] Iron Total 97 g/dL 28-[address] [place] [address] [phone] Unsaturated Iron Binding 310 g/dL Total Iron Binding Capacity 407 g/dL 250-450 % Iron Saturation 24 % 15-55 Laboratory test 11/28/2011 [facility] Sickle Cell NEGATIVE Negative finding [address] [place] [address] [phone] Laboratory test 11/18/2011 [facility] Ferritin 19 NG/ML 11.0- 307 finding [address] [place] [address] [phone] CBC Auto Diff 11/18/2011 [facility] White Blood 5.0 CUMM 4.8- 10.8 [address] [place] [address] [phone] Red Cell Count 3.71 CUMM Low 4.2-5.4 [...] Abs Basophils 0 0-0.2 Laboratory test 08/15/2011 [facility] Ferritin 22 NG/ML 11.0- 307 finding [address] [place] [address] [phone] Vitamin B12 653 pg/mL 180-914 Folic Acid 19.5 NG/ML See Below 120 Iron & Iron Binding 08/15/2011 [facility] Iron Total 99 g/dL 28-170 Capacity [address] [place] [address] [phone] Unsaturated Iron Binding 287 g/dL Total Iron Binding Capacity 386 g/dL 250-450 % Iron Saturation 26 % 15-55 Comp Metabolic Panel 07/07/2011 [facility] Sodium 134 mmol/L Low 135-145 [address] [place] [address] [phone] Potassium 4.3 mmol/L 3.5-5.0 Chloride 102 mmol/L [...] 99.8 > 60 123 Laboratory test 07/07/2011 [facility] Digoxin < 0.1 NG/ML Low 0.5-1.[address] [address] [phone] Please check labs today 2 Please [...] [address]: Krystyna Ayala MD Acct: [id number] Unit: [id number] AGE: 53 Location: [facility] Re09/06/18 SEX: F Status: REG REF SPEC: [id number] LATASHA: 09/06/18-[address] [facility] [address]: Krystyna Ayala MD REQ: [id number] RECD: 09/06/18 STATUS: COMP _ SOURCE: VAGINAL SPDESC: ORDERED: Nevaeh,Yeast DNA COMMENTS: [id number] Would you like to order Trichomonas Vaginalis [...] . END OF REPORT DEPARTMENT OF PATHOLOGY, [address] [place] [address] Silvestre Collier M.D. Director [facility] # [id number] 5 [id number] GC/Chlamydia Source?: Endocervical Trichomonas Source: Endocervical 6 [...] <15 (or dialysis) 11 Test Performed by: [place] [address] 12 Normal values may vary with age, [...] developed and its performance characteristics determined by [facility] in a manner consistent with CLIA requirements. This test has not been cleared or approved by the U.S. Food and Drug Administration. Test Performed by: [facility] [address] [place] [address] 14 Interpretation: Weak Positive (15.0-39.9) REFERENCE VALUE <15.0 (Negative) 15 REFERENCE VALUE <15.0 (Negative) Test Performed by: [place] [id number] 16 Test Performed by: [facility] [address] [place] [address] 17 Test Performed by: [facility] [address] [place] [address] 18 REFERENCE VALUE <30.0 (Negative) Test Performed by: [place] [address] 19 This test is negative at 24 hours. All samples are held and reviewed again at 7 days. If delayed precipitation occurs after 7 days, Immunofixation will be performed and an additional report will follow. 20 Test Performed by: [facility] - [address] [address] 21 Test Performed by: [facility] [address] [place] [address] Silvestre Collier M.D. Director of Laboratory 22 Interpretation: Strong Positive (>=60.0) REFERENCE VALUE <20.0 (Negative) Test Performed by: [facility] - [address] [address] 23 -- REFERENCE VALUE -- Synovial: <150/mcL Peritoneal: <500/mcL Pleural: <500/mcL Pericardial: <500/mcL 24 Mixed acute and chronic inflammation. No evidence of malignancy. Reviewed by Kortney Lugo MD 25 SEE RESULT BELOW Name: ONEIDA REESE Harpreet : [address]: Justyn Gabriel MD Acct: [id number] Unit: [id number] AGE: 53 Location: [facility] Re07/27/18 SEX: F Status: REG REF SPEC: [id number] LATASHA: 07/27/181140 SUBM DR: Justyn Gabriel MD REQ: [id number] RECD: 07/27/18 STATUS: COMP _ SOURCE: JOINT [...] . END OF REPORT DEPARTMENT OF PATHOLOGY, [address] [place] [address] Silvestre Collier M.D. Director [facility] # [id number] 26 Test Result Flag Unit RefValue Crystal ID, Synovial Fl See Comment A None seen RESULT: No CPPD or Urate crystals seen. Reviewed By: Tech Test Performed by: [facility] - [address] [address] 27 SEE RESULT BELOW Name: ONEIDA REESE : [address]: Maite King MD Acct: [id number] Unit: [id number] AGE: 52 Location: [facility] Re05/18/18 SEX: F Status: REG REF SPEC: [id number] LATASHA: 05/18/18-[address] [facility] [address]: Maite King MD REQ: [id number] RECD: 05/18/18 STATUS: RES OT DR: Haylee Cordero MD _ SOURCE: VAGINAL SPDESC: ORDERED: Genital Culture, Fungal - Other COMMENTS: Verbal to ADEEL by [id number] at 1353 on 05/21/18. Results read back [...] . END OF REPORT DEPARTMENT OF PATHOLOGY, [address] [place] [address] Silvestre Collier M.D. Director [facility] # [id number] 28 SEE RESULT BELOW Name: ONEIDA REESE : [address]: Maite King MD Acct: [id number] Unit: [id number] AGE: 52 Location: [facility] Re05/18/18 SEX: F Status: REG REF SPEC: [id number] LATASHA: 05/18/18-[address] [facility] [address]: Maite King MD REQ: [id number] RECD: 05/18/18 STATUS: RES OTHR DR: Haylee Cordero MD _ SOURCE: VAGINAL SPDESC: ORDERED: Genital Culture, Fungal - Other COMMENTS: Verbal to [id number] by [email or web address] at 1353 on 05/21/18. Results read back [...] . END OF REPORT DEPARTMENT OF PATHOLOGY, [address] [place] [address] Silvestre Collier M.D. Director [facility] # [id number] 29 SEE RESULT BELOW Name: MADHAVONEIDA Harpreet : [address]: Maite King MD Acct: [id number] Unit: [id number] AGE: 52 Location: [facility] Re05/18/18 SEX: F Status: REG REF SPEC: [id number] LATASHA: 05/18/18-[address] [facility] [address]: Maite King MD REQ: [id number] RECD: 05/18/18 STATUS: RES [facility] DR: Haylee Cordero MD _ SOURCE: VAGINAL [facility]: ORDERED: Genital Culture, Fungal - Other COMMENTS: Verbal to [id number] by [id number] at 1353 on 05/21/18. Results read back [...] sensitivity testing available upon request. * - Main Lab . END OF REPORT DEPARTMENT OF PATHOLOGY, [address] [place] [address] Silvestre Collier M.D. Director [facility] # [id number] 30 SEE RESULT BELOW Name: ONEIDA REESE : [address]: Maite King MD Acct: [id number] Unit: [id number] AGE: 52 Location: [facility] Re05/18/18 SEX: F Status: REG REF SPEC: [id number] LATASHA: 05/18/18-[address] [facility] [address]: Maite King MD REQ: [id number] RECD: 05/18/18 STATUS: ISACC WATTERS DR: Haylee [...] CONTINUED ON NEXT PAGE DEPARTMENT OF PATHOLOGY, [address] [place] [address] Silvestre Collier M.D. Director [facility] # [id number] Patient: ONEIDA REESE [id number] (Continued) Specimen: [id number] Collected: 05/18/18 Received: 05/18/18 (Continued) Procedure Result Reported Site Fungal Sensitivities Final (continued) 06/08/18- 1334 [1] Antifungal susceptibility testing was performed using broth microdilution method for all drugs except Amphotericin B and 5-flucytosine in accordance with current Clinical and Laboratory Standards [place] (CLSI) standard M27-A3 and in accordance with Clinical Laboratory Improvement Amendments (CLIA) regulations. [2] The JUSTIN breakpoints for echinocandins, fluconazole and voriconazole are based upon CLSI M27-S4 document [3] JUSTIN equal to or less than 32: Expert consultation on selection of a maximum dosage regimen may be useful * The performance characteristics of this test were determined by the [facility]. It has not been cleared or approved by the U.S. Food and Drug Administration. Test Performed by: [place] [address] * ML - Main Lab . END OF REPORT DEPARTMENT OF PATHOLOGY, [address] [place] [address] Silvesrte Collier M.D. Director [facility] # [id number] 31 SEE RESULT BELOW Name: ONEIDA REESE Harpreet : [address]: Maite King MD Acct: [id number] Unit: [id number] AGE: 53 Location: [facility] Re05/18/18 SEX: F Status: REG REF SPEC: [id number] LATASHA: 05/18/18-[address] [facility] [address]: Maite King MD REQ: [id number] RECD: 05/18/18 STATUS: ISACC WATTERS DR: Haylee Cordero MD _ SOURCE: VAGINAL SPDESC: ORDERED: Genital Culture, Fungal - Other COMMENTS: Verbal to [id number] by [id number] at 1353 on 05/21/18. Results read back [...] . END OF REPORT DEPARTMENT OF PATHOLOGY, [address] [place] [address] Silvestre Collier M.D. Director [facility] # [id number] 32 Because ethnic data is not always [...] 5 Kidney failure <15 (or dialysis) 33 [id number] 34 SEE RESULT BELOW Name: ONEIAD REESE : [address]: Krystyna Ayala MD Acct: [id number] Unit: [id number] AGE: 52 Location: [facility] Re04/17/18 SEX: F Status: REG REF SPEC: [id number] LATASHA: 04/17/18-[address] [facility] [address]: Krystyna Ayala MD REQ: [id number] RECD: 04/17/18114 STATUS: COMP _ SOURCE: VAGINAL SPDESC: ORDERED: Nevaeh,Yeast DNA, Trich DNA COMMENTS: [id number] Would you like to order Trichomonas Vaginalis [...] CONTINUED ON NEXT PAGE DEPARTMENT OF PATHOLOGY, [address] [place] [address] Silvestre Collier M.D. Director [facility] # [id number] Patient: ONEIDA REESE [id number] (Continued) Specimen: [id number] Collected: 04/17/18 Received: 04/17/18 (Continued) Procedure Result Reported Site Trichomonas: Vaginal DNA Probe Final (continued) 04/18/18 3985 The presence or absence of T. vaginalis cannot be used as a test for therapeutic success or failure. * - Main Lab . END OF REPORT DEPARTMENT OF PATHOLOGY, [address] [place] [address] Silvestre Collier M.D. Director [facility] # [id number] 35 SEE RESULT BELOW Name: ONEIDA REESE : [address]: Krystyna Ayala MD Acct: [id number] Unit: [id number] AGE: 52 Location: [facility] Re04/17/18 SEX: F Status: REG REF SPEC: [id number] LATASHA: 04/17/18-[address]: Krystyna Ayala MD REQ: [id number] RECD: 04/17/182480 STATUS: SOUT _ ORDERED: TP IMAGE ANALYS, HPV/Thin Prep COMMENTS: [id number] Negative for Intraepithelial lesion or Malignancy Date Time Test Result Flag (u) Normal Range 04/17/18 1242 @ HPV RNA Negative Negative @ @ [...] was evaluated with the assistance of the Adaptive TCRp Test Imaging System. Due to cytologic findings at the head of quality microscope, comprehensive manual rescreening by a Sales Ambassador may be required. The Pap Smear is [...] years. END OF REPORT DEPARTMENT OF PATHOLOGY, [address] [place] [address] Silvestre Collier M.D. Director [facility] # [id number] 36 [id number] 37 SEE RESULT BELOW Name: ONEIDA REESE : [address]: Krystyna Ayala MD Acct: [id number] Unit: [id number] AGE: 52 Location: [facility] Re04/17/18 SEX: F Status: REG REF SPEC: [id number] LATASHA: 04/17/18-[address]: Krystyna Ayala MD REQ: [id number] RECD: 04/17/18 STATUS: COMP _ SOURCE: URINE SPDESC: ORDERED: Urine Culture COMMENTS: [id number] Urine Source: Random Procedure Result Reported Site Urine Culture Final 04/18/18- 1616 ML No Growth (<1,000 CFU/mL) * ML - Main Lab . END OF REPORT DEPARTMENT OF PATHOLOGY, [address] [place] [address] Silvestre Collier M.D. Director [facility] # [id number] 38 Because ethnic data is not always [...] [address]: Maite King MD Acct: [id number] Unit: [id number] AGE: 52 Location: [facility] Re04/02/18 SEX: F Status: REG REF SPEC: [id number] LATASHA: 04/02/[address] [facility] [address]: Maite King MD REQ: [id number] RECD: 04/02/18 STATUS: ISACC WATTERS DR: Haylee Cordero MD _ SOURCE: URINE SPDESC: ORDERED: Urine Culture QUERIES: Urine Source: Random Procedure Result Reported Site Urine Culture Final 04/03/18- 0839 ML No Growth (<1,000 CFU/mL) * ML - Main Lab . END OF REPORT DEPARTMENT OF PATHOLOGY, [address] [place] [address] Silvestre Collier M.D. Director [facility] # [id number] 40 Therapeutic target for the treatment of diabetes mellitus patients is <7% HBA1C, and in selective patients <6.0%. Please refer to [place] [employer] diabetic care guidelines for further [...] [address]: Maite King MD Acct: [id number] Unit: [id number] AGE: 52 Location: [facility] Re02/27/18 SEX: F Status: REG REF SPEC: [id number] LATASHA: 02/27/[address] [facility] [address]: Maite King MD REQ: [id number] RECD: 02/27/18 STATUS: ISACC WATTERS DR: Haylee [...] . END OF REPORT DEPARTMENT OF PATHOLOGY, [address] [place] [address] Silvestre Collier M.D. Director [facility] # [id number] 44 Because ethnic data is not always [...] 47 SEE RESULT BELOW Name: ONEIDA REESE : [address]: Milka SANTIAGO Acct: [id number] Unit: [id number] AGE: 52 Location: [facility] Re01/02/18 SEX: F Status: REG REF SPEC: [id number] LATASHA: 01/02/18-1634 [facility] : Milka SANTIAGO REQ: [id number] RECD: 01/02/18 STATUS: COMP _ SOURCE: URINE SPDESC: ORDERED: Urine Culture COMMENTS: [id number] Urine Source: Random Procedure Result Reported Site Urine Culture Final 01/04/18- 08 ML Organism 1 CITROBACTER KOSERI [place] Count >100,000 (Many) CFU/ML 1. CITROBACTER KOSERI [...] . END OF REPORT DEPARTMENT OF PATHOLOGY, [address] [place] [address] Silvestre Collier M.D. Director [facility] # [id number] 49 SEE RESULT BELOW Name: ONEIDA REESE : [address]: Haylee Cordero MD Acct: [id number] Unit: [id number] AGE: 52 Location: [facility] Re08/28/17 SEX: F Status: REG REF SPEC: [id number] LATASHA: 08/28/17-[address] [facility] [address]: Radha Núñez MD REQ: [id number] RECD: 08/28/17 STATUS: RENATA WATTERS DR: Haylee Cordero MD _ ORDERED: LEVEL 4/2, IMMUNO-FIRST, IMMUNO-ADDL, IMMUNO-QUANT/3 COMMENTS: [id number] Immunohistochemical stains, with appropriately reacting controls, were performed with the following results: ER strongly positive, nearly 100% of tumor cells MT negative (0%) HER-2/maritza negative (0+) P63 positive [...] and distribution: Involves multiple sampled cores. Estimated [place] grade: Estimated tubule formation: 3. Estimated nuclear grade: 3. Estimated mitotic count: 1. Combined [place] histologic grade: 2/3. (7/9 points). Lymphovascular invasion: Not identified. 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 Extent and distribution: Present in association with invasive carcinoma. Architectural pattern: Cribriform and solid types. Nuclear grade: Intermediate. Necrosis: Absent. ER, MT, and Her2/Maritza by immunohistochemistry with appropriate controls: ER: Pending; results will be reported in an addendum. CONTINUED ON NEXT PAGE DEPARTMENT OF PATHOLOGY, [address] [place] [address] Silvestre Collier M.D. Director [facility] # [id number] RUN DATE: 08/30/17 [facility] LAB LIVE PAGE 2 Patient: ONEIDA REESE [id number] (Continued) FINAL DIAGNOSIS (Continued) MT: Pending; results will be reported in an [...] 08/13 END OF REPORT DEPARTMENT OF PATHOLOGY, [address] [place] [address] Silvestre Collier M.D. Director [facility] # [id number] 50 [facility] Severe Sepsis and Septic Shock Management Bundle Measure requires all lactic acids initially measuring >2.0 mmol/L be repeated. 51 SEE RESULT BELOW Name: ONEIDA REESE : [address]: Luis Miguel Astorga MD Acct: [id number] Unit: [id number] AGE: 52 Location: ED Re08/14/17 SEX: F Status: DEP ER SPEC: [id number] LATASHA: 08/14/[address] [facility] [address]: Jennifer SANTIAGO REQ: [id number] RECD: 08/14/17 STATUS: ISACC WATTERS DR: Haylee Astorga MD _ SOURCE: BLOOD,VENO SPDESC: ORDERED: Blood Cult Procedure Result Reported Site Aerobic Culture Bottle Final 08/19/17- 1935 ML No Growth Day 5 Anaerobic Culture Bottle Final 08/19/17- 1935 ML No Growth Day 5 * ML - Main Lab . END OF REPORT DEPARTMENT OF PATHOLOGY, [address] [place] [address] Silvestre Collier M.D. Director [facility] # [id number] 52 Because ethnic data is not always [...] (or dialysis) 53 CALL RESULTS EXT : 4501 54 CALL RESULTS EXT : 4532 55 Because ethnic data is not always [...] confidence interval of 99.78 to 99.96%. 64 [id number] 65 SEE RESULT BELOW Name: ONEIDA REESE : [address]: Haylee Cordero MD Acct: [id number] Unit: [id number] AGE: 51 Location: [facility] Re10/19/16 SEX: F Status: REG REF SPEC: [id number] LATASHA: 10/19/[address] [facility] [address]: Haylee Cordero MD REQ: [id number] RECD: 10/19/16 STATUS: COMP _ SOURCE: VAGINAL SPDESC: ORDERED: Nevaeh,Yeast DNA COMMENTS: [id number] Procedure Result Reported Site Gardnerella/Yeast: Vaginal DNA [...] or failure. * ML - MAIN LAB ([facility]) . END OF REPORT * ML=Testing performed at Main Lab DEPARTMENT OF PATHOLOGY, [address] [place] [address] Silvestre Collier M.D. Director [facility] # [id number] 66 [id number] GC/Chlamydia Source?: Endocervical Trichomonas Source: Endocervical 67 Acute inflammation: >10.00 68 [facility] Severe Sepsis and Septic Shock Management Bundle [...] 5 Kidney failure <15 (or dialysis) 71 [facility] Severe Sepsis and Septic Shock Management Bundle Measure requires all lactic acids initially measuring >2.0 mmol/L be repeated. 72 Would you like to order Trichomonas Vaginalis RNA testing? N 73 SEE RESULT BELOW Name: ONEIDA REESE : [address]: Brigido Noe DO Acct: [id number] Unit: [id number] AGE: 51 Location: ED Re08/18/16 SEX: F Status: DEP ER SPEC: [id number] LATASHA: 08/18/16-[address] [facility] [address]: Tressa SANTIAGO REQ: [id number] RECD: 08/18/16-144 STATUS: ISACC WATTERS DR: Brigido Hurst MD [...] or failure. * ML - MAIN LAB ([facility]) . END OF REPORT * ML=Testing performed at Main Lab DEPARTMENT OF PATHOLOGY, [address] [place] [address] Silvestre Collier M.D. Director [facility] # [id number] 74 Because ethnic data is not always [...] [address]: Robert Sánchez MD Acct: [id number] Unit: [id number] AGE: 50 Location: ED Re06/04/16 SEX: F Status: DEP ER SPEC: [id number] LATASHA: 06/04/16-[address] [facility] [address]: Robert Sánchez MD REQ: [id number] RECD: 06/04/16 STATUS: ISACC STEVE DR: Haylee [...] therapeutic success or failure. * ML - [facility] ([facility]) . END OF REPORT * ML=Testing performed at Main Lab DEPARTMENT OF PATHOLOGY, [address] [place] [address] Silvestre Collier M.D. Director [facility] # [id number] 78 GC/Chlamydia Source?: Endocervical Trichomonas Source: Endocervical 79 SEE RESULT BELOW Name: ONEIDA REESE : [address]: Robert Sánchez MD Acct: [id number] Unit: [id number] AGE: 50 Location: ED Re06/04/16 SEX: F Status: DEP ER SPEC: [id number] LATASHA: 06/04/[address] [facility] [address]: Robert Sánchez MD REQ: [id number] RECD: 06/04/16 STATUS: ISACC WATTERS DR: Haylee Cordero MD _ SOURCE: URINE SPDESC: ORDERED: Urine Culture Procedure Result Reported Site Urine Culture Final 06/08/16- 0818 ML Organism 1 PROTEUS MIRABILIS [place] Count >100,000 (Many) CFU/ML Organism 2 NORMAL FERCHO [place] Count 1-10,000 (Few) CFU/ML 1. PROTEUS MIRABILIS M.I.C. RX --------- ------ Ampicillin >=32 R Cefazolin R Cefepime S Ceftriaxone S Ciprofloxacin <=0.25 S Gentamicin <=1 S Levofloxacin <=0.12 S Meropenem R Nitrofurantoin 128 R Tetracycline >=16 R Pipercillin/Tazobactam R Trimethoprim/Sulfamethoxazole <=20 S Aztreonam S Contact the Microbiology Department for any additional antibiotic reporting. * ML - MAIN LAB ([facility]) . END OF REPORT * ML=Testing performed at Main Lab DEPARTMENT OF PATHOLOGY, [address] [place] [address] Silvestre Collier M.D. Director [facility] # [id number] 80 FASTING 10 HOUR 81 FASTING 10 [...] and in selective patients <6.0%.Please refer to [place] [employer] Diabetic care guidelines for further [...] <15 (or dialysis) 102 RUN DATE: 08/31/12 [facility] LAB LIVE PAGE 1 RUN TIME: [address] [place] [address] Specimen Inquiry Name: ONEIDA REESE : [address]: Haylee Cordero MD Acct: [id number] Unit: [id number] AGE: 47 Location: [facility] Re08/27/12 SEX: F Status: REG REF SPEC: [id number] LATASHA: 08/27/12-[address] [facility] [address]: Haylee Cordero MD REQ: [id number] RECD: 08/27/12 STATUS: SOUT _ ORDERED: IMAGE ANALYSIS, HPV / Thin Prep HiRisk Human Papilloma Virus test results received with preparation and diagnosis completed by [facility], [place], [place]. Results: NEGATIVE High Risk (for types 16, 18, 31, 33, 35, 39, 45, 51, 52, 56, 58, 59, 68) Marketshot Hybrid Capture Specimen Transport Media or Cytyc ThinPrep PapTest PreservCyt Solution are the collection systems approved for use with this method by the U.S. Food and Drug Administration. Performance characteristics for [employer]te ([employer]) collection device have been determined by Laboratory Medicine and Pathology , [facility], [place], [place]. It has not been cleared or approved by the U.S. Food and Drug Administration. Test Performed by: [facility] Dpt of lab Med and Pathology [address] [facility] [address] Base Ply Hand: Tu Benavidez III, M.D. Original hard copy report from [facility] is available upon request by calling Pathology at [phone]. Addendum Signed (signature on file) BRYCE Mullen (ASC) 08/31/12918 FINAL DIAGNOSIS Negative for Intraepithelial lesion or Malignancy COMMENTS: Specimen sent to [facility] in [place], [place] on 08/28/12. Results will be reported separately in an Addendum. A. Ectocervical/Endocervical Specimen Adequacy: CONTINUED ON NEXT PAGE * ML=Testing performed at Main Lab DEPARTMENT OF PATHOLOGY, [address] [place] [address] Silvestre Collier M.D. Director [facility] Permit #[id number] RUN DATE: 08/31/12 [facility] LAB LIVE PAGE 2 RUN TIME: [address] [place] [address] Specimen Inquiry Patient: ONEIDA REESE [id number] (Continued) CYTOLOGY ADEQ (Continued) Satisfactory of evaluation [...] was evaluated with the assistance of the GuestmobPrep Test Imaging System. Due to cytologic findings at the head of quality microscope, comprehensive manual rescreening by a Sales Ambassador may be required. The Pap Smear is [...] performed at Main Lab DEPARTMENT OF PATHOLOGY, [address] [place] [address] Silvestre Collier M.D. Director [facility] Permit #[id number] 103 For types 16, 18, 31, 33, 35, 39, 45, 51, 52, 56, 58, 59 and 68. Test Performed by: [address] [address] Base Ply Hand: Tu Benavidez III, M.D. 104 RUN DATE: 04/18/12 [facility] LAB LIVE PAGE 1 RUN TIME: [address] [place] [address] Specimen Inquiry Name: MADHAVONEIDA : [address]: Haylee Cordero MD Acct: [id number] Unit: [id number] AGE: 46 Location: [facility] Re04/17/12 SEX: F Status: REG REF SPEC: [id number] LATASHA: 04/17/12-[address]: Haylee Cordero MD REQ: [id number] RECD: 04/17/12 STATUS: COMP _ SOURCE: VAGINAL SPDESC: ORDERED: Affirm QUERIES: Medent Number [id number] Procedure Result Verified Site Affirm Vaginal DNA [...] performed at Main Lab DEPARTMENT OF PATHOLOGY, [address] [place] [address] Silvestre Collier M.D. Director [facility] Permit #[id number] 105 Test Performed by: [address] [address] Base Ply Hand: Tu Benavidez III, M.D. 106 CHOLESTEROL INTERPRETATION: [...] hemoglobin or beta thalassemia. Test Performed by: [place] [address] Base Ply Hand: Tu Benavidez III, M.D. 111 Negative in normal Individuals. May be negative in dermatitis herpatiformis or celiac disease patients adhering to a gluten free diet. Laboratory developed test. Test Performed by: [place] [address] Base Ply Hand: Tu Benavidez III, M.D. 112 -- REFERENCE VALUE -- <20.0 (Negative) Test Performed by: [place] [address] Base Ply Hand: Tu Benavidez III, M.D. 113 -- REFERENCE VALUE -- <20.0 (Negative) Test Performed by: [place] [address] Base Ply Hand: Tu Benavidez III, M.D. 114 Test Performed by: [place] [address] Base Ply Hand: Tu Benavidez III, M.D. 115 ----- RUN DATE: 01/06/12 [facility] NMI LIVE PAGE 1 RUN TIME: 838 Specimen Inquiry RUN USER: INTERFACE -- Name: ONEIDA REESE Accmillie#: [id number] Status: REG REF Re01/02/12 Age/Sex: 46/F Unit#: [id number] Location: [facility]. : [birth year] -- Specimen: [id number] Spec Date:01/02/12 [facility] Dr: Haylee mclaughlin MD Spec Type: CYTOLOGY [...] (ASC-US) * NOTE Specimen sent to [facility] in [place], [place] on 01/03/12 by DB at 1409. [...] and Pathology, [facility] -- DEPARTMENT OF PATHOLOGY, [address] [place] [address] [facility] Permit #[id number] Shanta Rubalcava M.D. Superintendent [employer] Dir jo -- -- RUN DATE: 01/06/12 [facility] NMI LIVE PAGE 2 RUN TIME: 0839 Specimen Inquiry RUN USER: INTERFACE -- Name: MADHAVONEIDAALAN Ravi#: [id number] Status: REG REF Re01/02/12 Age/Sex: 46/F Unit#: [id number] Location: [facility] : 67 -- -- CONTINUED -- ADDENDUM ([place], [place]. It has not been cleared or approved by the U.S. Food and Drug Administration. Test Performed by: [facility] Dpt of lab Med and Pathology [address] [place] [address] Base Ply Hand: Tu Benavidez III, M.D. Original hard copy report from [facility] [employer] is available upon request by calling Pathology at [phone]. Addendum Review Juan Ramon CORRALES([facility]) 01/06/12 -- This Pap test was evaluated with the assistance of the ThinPrep Pap Test Imaging System. Due to cytologic findings at the head of quality microscope, comprehensive manual rescreening by a Sales Ambassador was required. The Pap Smear is a [...] 01/03/12 1442 -- -- DEPARTMENT OF PATHOLOGY, [address] [place] [address] [facility] Permit #[id number] Silvestre Collier M.D. Director Queenie Luque M.D. Superintendent [employer] jo -- 116 Anion gap measurement may be of limited value in the presence of any alkalosis, especially in a combined acid base disorder. . 117 A metabolite of Naproxen, O-desmethylnaproxen, has been shown to interfere with the Jesus-Miriam method for measuring total bilirubin. Samples from [...] CONTROL.* Procedures Date Code Description Status 09/11/2018 44003 Removal Tunneled Central Venous Access Dev W/Sub Completed Port/Pump 08/20/2018 192910312 Bone Mineral Density Test Completed 07/27/2018 50764 Inject/Drain Joint/Bursa Major W/O US Completed 03/22/2018 64403 EKG Tracing & Interpretation Completed 01/18/2018 10063 Fluoroscopic Guidance For Cent Completed 01/18/2018 77565 Insertion Tunneled Cent Venous Cathr W Subcut Port 5 Completed Yrs Or Oldr 10/04/2017 68205 ECHO Transthoracic, Real-Time 2D With Doppler And Completed Color Flow 10/04/2017 23060 ECHO Transthoracic, Real-Time 2D With Doppler And Completed Color Flow 09/15/2017 76023 EKG Tracing & Interpretation Completed 08/28/2017 [id number] Mammogram Completed 08/17/2017 [id number] Mammogram Completed 08/11/2017 48840 Moderate Sedation Services; Same Phys Each Additional Completed 15 Mins 08/11/2017 15682 Moderate Sedation Services; Same Phys Intl 15 Mins; PT Completed >=5 Years 08/11/2017 43556 Ultrasound Guidance For Vascular Access Completed 08/11/2017 99383 Vascular Embolization Or Occlu Tumor Organ Ischemia Or Completed Infarction 08/11/2017 23448 Catheter Placement Arterial System Init 3RD Order Completed Abdom/Pelv/Low 08/11/2017 89871 Common Femoral, Bilat Completed 07/13/2017 27027715 Mammogram Completed 03/16/2017 69729461 Colonoscopy Completed 01/13/2017 02670 EKG Tracing & Interpretation Completed 06/08/2016 92470 ECHO Transthoracic, Real-Time 2D With Doppler And Completed Color Flow 06/07/2016 92635 EKG Tracing & Interpretation Completed 05/20/2016 04704780 Mammogram Completed 10/01/2015 75054 Holter Monitor Review (24 hr)dr dobson & rohini only Completed 09/30/2015 04151 ECG Monitor/Recording W/Visual Superimposition Completed Scanning 09/25/2015 04415 EKG Tracing & Interpretation Completed 09/23/2015 36087 ECHO Transthoracic, Real-Time 2D With Doppler And Completed Color Flow 05/07/2015 03513066 Mammogram Completed 11/20/2014 57397 ECG Monitor/Recording W/Visual Superimposition Completed Scanning 11/20/2014 12305 Holter Monitor Review (24 hr)dr review & interp only Completed 11/17/2014 78603 ECG Monitor/Recording W/Visual Superimposition Completed Scanning 11/17/2014 06744 Holter Monitor Review (24 hr)dr review & interp only Completed 11/07/2014 28621 ECHO Transthoracic, Real-Time 2D With Doppler And Completed Color Flow 10/24/2014 61168 EKG Tracing & Interpretation Completed 02/21/2014 84467 ECHO Transthoracic, Real-Time 2D With Doppler And Completed Color Flow 02/07/2014 48314 EKG Tracing & Interpretation Completed 01/23/2013 99058609 Mammogram Completed 01/27/2012 91751 ECHO Transthoracic, Real-Time 2D With Doppler And Completed Color Flow 01/06/2012 95742116 Mammogram Completed 09/28/2011 45696 EKG Tracing & Interpretation Completed Encounters Type Date Location Provider Dx Diagnosis Office Visit 08/14/2018 [facility] Internal Hayleealicia Cordero, Z00.00 Encntr for 9:10a Medicine Kacy Womack general adult [place] medical exam w/o abnormal findings I10 Essential (primary) hypertension Z23 Encounter for immunization L84 Corns and callosities Office Visit 08/10/2018 10:40a Rheumatology Justyn Gabriel, M05.79 Rheu arthritis Services [facility] w rheu factor mult site w/o org/sys involv R76.0 Raised antibody titer D64.9 Anemia, unspecified M25.561 Pain in right knee M15.0 Primary generalized (osteo)arthritis Office Visit 07/27/2018 Rheumatology Justyn 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 hypertension [place] M25.571 Pain in right ankle and joints of right foot M25.569 Pain in unspecified knee D50.0 Iron deficiency anemia secondary to blood loss (chronic) Office Visit 05/02/2018 10:15a Yoni Deshpande D25.9 Leiomyoma of Medicine Of [facility] Shanta Augustine uterus, unspecified Office Visit 04/17/2018 12:00p [facility] Dvorah Jamie, R30.0 Dysuria [facility] B37.3 Candidiasis of vulva and vagina D25.9 Leiomyoma of uterus, unspecified Office Visit 03/22/2018 [place] Dalia S. I42.9 Cardiomyopathy, 3:30p Cardiology Foster, N.P. 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 leg Office Visit 10/18/2017 2:30p Yoni Deshpande D25.9 Leiomyoma of [facility] Augustine M.D. uterus, unspecified M72.2 Plantar fascial fibromatosis M54.5 Low back pain Office Visit 10/12/2017 8:45a Orthopedic Kendall Lowry76.821 Posterior tibial Services Of [facility] Calhoun tendinitis, right C.M.A. leg Office Visit 09/25/2017 3:40p [facility] Internal Britt Fitch, B37.3 Candidiasis of Medicine N.P. 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 I10 Essential Maghaydah, (primary) M.D. 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 uterus, Hospitalists unspecified I42.5 Other restrictive cardiomyopathy I10 Essential (primary) hypertension R00.0 Tachycardia, unspecified Office Visit 08/12/2017 3:19p [facility] Vascular Osiel Deshpande D25.9 Leiomyoma of Medicine Of [facility] Augustine M.D. uterus, unspecified Office Visit 08/11/2017 9:06a [facility] Odette D25.9 Leiomyoma of Assoc,rena AlvaresTomasz Nelda, uterus, Hospitalists [employer]IVER unspecified I42.5 Other restrictive cardiomyopathy I10 Essential (primary) hypertension R00.1 Bradycardia, unspecified Office Visit 04/10/2017 2:30p [place] Maite Stover M79.672 Pain in left foot Cardiology Of MD Matias, [facility] AT [facility] Office Visit 03/03/2017 2:30p Orthopedic Kendall M76.821 Posterior tibial Services Of [facility] Calhoun tendinitis, right C.M.A. leg Office Visit 01/31/2017 8:45a Orthopedic Kendall Lowry76.821 Posterior tibial Services Of [facility] Calhoun tendinitis, right C.M.A. 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 E78.4 Other hyperlipidemia R11.0 Nausea R35.0 Frequency of micturition I10 Essential (primary) hypertension Office Visit 01/13/2017 1:30p [place] [facility] Radha Pearce, G47.00 Insomnia, Of [facility] [place] unspecified I42.9 Cardiomyopathy, unspecified R94.31 Abnormal electrocardiogram [ECG] [EKG] I10 Essential (primary) hypertension Office Visit 10/19/2016 8:30a [facility] Internal Medicine Haylee Cordero, R30.0 Dysuria - Keila Womack N89.8 Other specified noninflammatory disorders of vagina Z11.4 Encounter for screening for human immunodeficiency virus Office Visit 09/14/2016 1:30p [facility] Vascular Osiel Deshpande D25.9 Leiomyoma of Medicine Of [facility] Shanta Augustine uterus, unspecified Office Visit 08/30/2016 2:40p [facility] Internal Haylee D25.9 Leiomyoma of Medicine Kacy Cordero M.D. uterus, [place] unspecified I10 Essential (primary) hypertension Z12.11 Encounter for screening for malignant neoplasm of colon Office Visit 07/27/2016 2:30p [facility] Internal Lupe Cummings, I10 Essential ( primary) Medicine - [place] ORNAMENT SETTER hypertension Rd F41.9 Anxiety disorder, unspecified Z13.220 Encounter for screening for lipoid disorders I42.9 Cardiomyopathy, unspecified Office Visit 06/07/2016 Jadyn Rebolledo SSelina I42.9 Cardiomyopathy, 3:00p Cardiology Shanta Alfaro unspecified I10 Essential (primary) hypertension I34.0 Nonrheumatic mitral (valve) insufficiency R94.31 Abnormal electrocardiogram [ECG] [EKG] Office Visit 05/03/2016 9:50a [facility] Internal Haylee I10 Essential (primary ) Jamie Cordero M.D. hypertension [place] F41.9 Anxiety disorder, unspecified D64.9 Anemia, unspecified Z23 Encounter for immunization Office Visit 01/27/2016 1:40p [facility] Internal Hubert Geronimo, Z00.00 Encntr for Medicine - [place] PETROL TANKER DRIVER general adult Rd medical exam w/o abnormal findings Z12.31 Encntr screen mammogram for malignant neoplasm of breast I42.9 Cardiomyopathy, unspecified I10 Essential (primary) hypertension L30.9 Dermatitis, unspecified F43.0 Acute stress reaction J30.9 Allergic rhinitis, unspecified L70.0 Acne vulgaris Office Visit 01/25/2016 [facility] Internal Jamal K57.92 Dvtrcli of intest, 4:00p Medicine - [place] Shanta Palacios part unsp, w/o perf Rd or abscess w/o bleed Office Visit 11/02/2015 [place] JACK Fulton I49.3 Ventricular 3:30p Cardiology premature depolarization I42.9 Cardiomyopathy, unspecified I10 Essential (primary) hypertension Office Visit 10/02/2015 2:30p [facility] Q66.51 [facility] plan, right C.M.A. foot L84 Corns and callosities Office Visit 09/25/2015 Jadyn Nofauziatobias Tyler I42.9 Cardiomyopathy, 2:20p Cardiology Shanta Alfaro unspecified I10 Essential (primary) hypertension I49.3 Ventricular premature depolarization Office Visit 07/06/2015 4:00p [facility] Internal Robert Mendez J06.9 Acute upper Medicine Shanta Baez respiratory infection, unspecified Office Visit 05/05/2015 3:00p [facility] Q66.51 [facility] planus, right C.M.A. 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, right foot N92.0 Excessive and frequent menstruation with regular cycle Z12.31 Encntr screen mammogram for malignant neoplasm of breast Z23 Encounter for immunization J30.9 Allergic rhinitis, unspecified Office Visit 03/17/2015 11:10a [facility] Internal Haylee R10.30 Lower abdominal Medicine Shanta Cordero pain, unspecified J01.90 Acute sinusitis, unspecified R73.01 Impaired fasting glucose Office Visit 02/23/2015 11:50a [facility] Internal Haylee K64.9 Unspecified Medicine Shanta Cordero hemorrhoids K59.09 Other constipation I10 Essential (primary) hypertension D50.9 Iron deficiency anemia, unspecified K64.0 First degree hemorrhoids Office Visit 02/12/2015 2:30p [place] [facility] Radha Pearce, 425.9 Cardiomyopathy PA Secondary Unspecified 401.9 Hypertension Unspec 272.4 Hyperlipidemia Other Unspec 425.4 Cardiomyopathy Other Prim Office Visit 11/27/2014 9:30a [facility] Radha Perace, 785.0 Tachycardia Unspec PA 425.9 Cardiomyopathy Secondary Unspecified 401.9 Hypertension Unspec 272.2 Hyperlipidemia Mixed 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 425.9 Cardiomyopathy 10:20a Cardiology Shanta Alfaro Secondary Unspecified 401.9 Hypertension Unspec 272.2 Hyperlipidemia Mixed 424.0 Mitral Valve Disorder 785.0 Tachycardia Unspec 785.1 Palpitations Office Visit 07/29/2014 2:50p [facility] Internal Haylee Cordero, 300.00 Anxiety State Medicine M.Clarissa Unspec 795.51 Nonspec Reaction To Tuberculin Skin Test W/O Active TB V70.3 Examination Other Medical For Administrative Purpose Office Visit 03/12/2014 3:30p [place] [facility] Radha Pearce, 281.9 Anemia Deficiency PA Unspec 425.9 Cardiomyopathy Secondary Unspecified 401.9 Hypertension Unspec Office Visit 02/07/2014 Jadyn Kesha S. 272.2 Hyperlipidemia 3:00p Cardiology Shanta Alfaro Mixed 401.9 Hypertension Unspec 425.9 Cardiomyopathy Secondary Unspecified Office Visit 12/26/2013 1:10p [facility] Internal Haylee V70.0 Examination Medicine Shanta Cordero General Medical Routine AT [facility] 700 Corns & Callosities V76.10 Screening For Malignant Neoplasm Breast 272.2 Hyperlipidemia Mixed 281.9 Anemia Deficiency Unspec Office Visit 11/26/2013 3:10p [facility] Internal Medicine Haylee Cordero, 724.2 Lumbago M.DSelina 401.9 Hypertension Unspec Office Visit 01/16/2013 10:30a [facility] Internal Haylee Cordero, 128.9 Helminth Medicine M.DSelina Infection Unspec V76.10 Screening For Malignant Neoplasm Breast Office Visit 10/04/2012 2:20p [place] Amira 401.9 Hypertension Cardiology AT [place], D.Olive Unspec [facility] 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 272.4 Hyperlipidemia Other Unspec 285.9 Anemia Unspec Office Visit 09/26/2012 4:10p [facility] Internal Haylee Cordero, 281.9 Anemia Deficiency Medicine MSelinaDSelina Unspec 272.4 Hyperlipidemia Other Unspec Office Visit 08/27/2012 10:50a [facility] Internal Haylee Cordero, 285.9 Anemia Unspec Medicine M.DSelina 401.9 Hypertension Unspec 795.01 Pap Smear Atypical Squamous Cell Undetermined Sig (Asc-US) 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 Office Visit 04/17/2012 9:50a [facility] Internal Haylee Cordero, 623.5 Leukorrhea Not Medicine Shanta Spec as Infective 285.9 Anemia Unspec 401.9 Hypertension Unspec 795.01 Pap Smear Atypical Squamous Cell Undetermined Sig (Asc-US) V04.81 Need For Prophylactic Vaccination & Inoculation/Influenza Office Visit 03/12/2012 Jadyn Ortizhanie 674.81 Post 10:20a Cardiology Sandra Turner Cardiomyopathy 401.9 Hypertension Unspec Office Visit 01/25/2012 9:50a [facility] Internal Haylee Cordero, 285.9 Anemia Unspec Medicine Shanta 401.9 Hypertension Unspec 309.89 Adjustment Reaction Other Spec 795.01 Pap Smear Atypical Squamous Cell Undetermined Sig (Asc-US) Office Visit 01/02/2012 11:30a [facility] Internal Haylee V72.31 Routine Medical Review Coordinator Medicine Shanta Cordero Examination V76.2 Screening Malignant Neoplasm Cervix V77.91 Screening For Lipoid Disorders V76.19 Screening Breast Exam Malignant Neoplasms Other V15.06 Allegy To Insects And Arachnids 285.9 Anemia Unspec V06.1 Eaccrdtuvv-Btkmxda-Lrxzzxwu Combined (DTaP) Office Visit 11/28/2011 2:30p [facility] Internal Haylee Cordero, 281.9 Anemia Deficiency Medicine Shanta Unspec 401.9 Hypertension Unspec 425.9 Cardiomyopathy Secondary Unspecified Office Visit 11/18/2011 11:40a [facility] Internal Roya French, 281.9 Anemia Deficiency Medicine MJoy Unspec 780.4 Dizziness & Giddiness 564.09 Constipation Other Office Visit 11/09/2011 9:40a Jadyn Collier 401.1 Hypertension Cardiology Sandra Turner Benign 281.9 Anemia Deficiency Unspec 564.09 Constipation Other 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 at [facility]09/11/2018 - Diego Perea M.D.C50.912 Malignant neoplasm of unspecified site of left female breastFollow up:As needed
--- OUTSIDE RECORDS SUMMARY | 2018-09-23 21:08 | XMS REPORT | Continuity of Care Document ---
:1965 External Reference #:[id number] Author Name Yesika Mccray Care Team Providers Name Role Phone Haylee Cordero MD Primary Care Physician Unavailable Payers Date Identification Numbers Payment Provider Subscriber Effective: 2011 Policy Number: [id number] Roni Reese Group Number: [id number] PayID: [id number] [place] [address] Advance Directives Description No Information Available Problems Date Description Provider Status Onset: 07/07/2011 Cardiovascular Disease Other Haylee Cordero M.D. 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 [place] at [facility] T1cNI stage 2 Onset: 10/04/2012 Essential hypertension [...] Unknown Never Smoked Cigarettes Smoking Status Reviewed: 09/07/18 Never Smoked Cigarettes ETOH Use Never used [...] 1000Unit 2 a day Haylee Cordero M.D. Methotrexate 08/10/ Active Tablets 2.5mg 30tabs take 5 R76.0 2018 capsules/tabl Nery, ets by mouth M.D. once weekly on Fridays Folic Acid 08/10/ Active Tablets 1mg 90tabs take one D64.9 2018 capsule/table Nery, t daily by M.D. mouth Amlodipine 07/24/ Active Tablets 2.5mg 90tabs [...] Active Suspension 50mcg/A 16gm 1 squirts J30.[address] each Cordero, nostril M.D. every [...] 1 Tablet By Unknown Mouth Every Day Prednisone 08/10/2018 - Hx Tablets 10mg 60t [...] one applicator Dvorah 12/31/2017 ys vaginally every [place], MD night at bedtime x 5 nights Fluconazole 04/17/2018 - Hx Tablets 150mg 2ta one tablet by Dvorah 04/20/2018 bs mouth, then MD Jamie repeat in 3 days Nitrofurantoin 01/05/2018 - Hx Capsules 100mg 10c Take one tablet Sherri Monohyd Macro 03/21/2018 aps by mouth twice Cotton, daily for 5 M.D. days. Fluconazole 01/02/2018 - Hx Tablets 150mg 2ta take one tablet N7 [place] 03/21/2018 bs by mouth now. if 6. [...] 0.75% 1un apply Haylee 10/27/2016 its intravaginally Gil, once a day x 7 M.D. 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 Doxycycline 03/17/2015 - Hx Capsules 100mg 20caps 1 by mouth J01.90 Haylee Hyclate 04/14/2015 twice a day Shanta Cordero Anusol-HC 02/23/2015 - Hx Suppository 25mg 5units [...] CPT Code Status Date Vaccine Lot # [id number] Given 08/14/2018 Pneumococcal Conjugate Vaccine 13 Valent For [id number] Intramuscular Use 72552 Given 02/05/2018 Influenza Virus Vaccine, Quadrivalent, Split, Preservative Free 42335 Given 05/03/2016 Influ Virus Vaccine, Quadrivalent, Split Virus, [place] [id number] [address] Given 04/15/2015 Influenza Virus Vaccine, Quadrivalent, Split, [id number] Preservative Free [id number] Given 04/17/2012 Fluvirin Im 3Yrs And Older [id number] Given 01/02/2012 Tdap - Tetanus/Diptheria/Acellular Pertussis [id number] Vital Signs Date Vital Result Comment 09/07/2018 12:51pm Height 70 inches 5'10" Weight [...] Mass Index) 23.8 kg/m2 Last Menstrual Period [id number] 08/14/2018 9:11am Height 70 inches 5'10" Weight [...] Mass Index) 24.4 kg/m2 Last Menstrual Period [id number] 03/22/2018 3:30pm Weight 174.00 lb with shoes [...] Result H/L Range Note Laboratory test 09/07/2018 [facility] Erythrocyte Sed 24 mm/Hr N 0-29 [address] [place] [address] [phone] C Reactive Protein < 1.00 mg/L N <8.01 2 Comp Metabolic Panel 09/07/2018 [facility] Sodium 137 mmol/L N 135-[address] [place] [address] [phone] Potassium 4.0 mmol/L N 3.5-5.0 Chloride 104 [...] 111.8 >60 3 CBC Auto Diff 09/07/2018 [facility] White Blood 4.7 10^3/uL N 3.5-10.[address] [place] [address] [phone] Red Blood Count 4.19 10^6/uL N 3.70-4.87 [...] Red Blood Cells % 0 Laboratory 09/06/2018 [facility] Gardnerella/Yeast: SEE RESULT 4 test finding [address] [place] [address] [phone] GC/Chlamydia 09/06/2018 [facility] Chlamydia trachomatis Negative Negative Amplified Rna [address] [place] [address] [phone] Neisseria gonorrhoeae (GC) Rna Negative Negative Laboratory test 09/06/2018 [facility] Trichomonas Negative Negative [address] [place] [address] [phone] Lipid Profile 07/28/2018 [facility] Triglycerides 55 mg/dL 6 (Trig/Chol/HDL) [address] [place] [address] [phone] Cholesterol 236 mg/dL 7 HDL Cholesterol 55.7 mg/dL 8 LDL Cholesterol 169 mg/dL 9 CBC Auto Diff 07/28/2018 [facility] White Blood 3.7 10^3/uL N 3.5-10.[address] [place] [address] [phone] Red Blood Count 3.96 10^6/uL Low 4.00-5.40 [...] Cells % 0.2 Basic Metabolic Panel 07/28/2018 [facility] Sodium 137 mmol/L N 135-[address] [place] [address] [phone] Potassium 3.8 mmol/L N 3.5-5.0 Chloride 103 mmol/L N 101-111 Co2 Carbon Dioxide 26 mmol/L N 22-32 Anion Gap 8 mmol/L N 2-11 Glucose 91 mg/dL N 70-100 Blood Urea Nitrogen 15 mg/dL N 6-24 Creatinine 0.47 mg/dL Low 0.51-0.95 BUN/Creatinine Ratio 31.9 High 8-20 Calcium 10.0 mg/dL N 8.6-10.3 Egfr Non- 139.2 >60 Egfr 168.4 >60 10 Laboratory test 07/28/2018 [facility] Angiotensin 14 U/L 8 - 53 [address] [place] [address] [phone] Aso (Antistreptolysin O) Titer Negative IU/mL <200 Iu/mL 12 Creatine Kinase(CK) 257 U/L High 10-223 Anca AB Ser If 07/28/2018 [facility] C-Anca Negative Negative [address] [place] [address] [phone] P-Anca Positive Abnormal Negative 13 Cardiolipin 07/28/2018 [facility] Phospholipid Ab 20.9 MPL High 14 Igg/Igm [address] IgM, [place] [address] [phone] Phospholipid Ab IgG < 9.4 GPL 15 Laboratory test 07/28/2018 [facility] Sickle Cell Negative Negative finding [address] [place] [address] [phone] Complement C3 158 mg/dL 75 - 175 16 Complement C4 27 mg/dL 14 - 40 17 Anti Double Stranded Dna AB <12.3 IU/mL 18 Cryoglobulin & 07/28/2018 [facility] Cryoglobulin Negative Negative [address] %[place] [address] [phone] Cryofibrinogen Negative Negative 20 Laboratory test 07/28/2018 [facility] Lyme Screen Negative Negative finding [address] W/ [place] [address] WB [phone] C Reactive Protein 17.16 mg/L High <8.01 Erythrocyte Sed Rate 67 mm/Hr High 0-30 21 Rheumatoid Factor 49 IU/mL High <15 Cyclic Citrullinated Pep Igg >250.0 U Abnormal 22 Body Fluid Cell 07/27/2018 [facility] Body Fluid Synovial Fluid Count [address] [place] [address] [phone] Body Fluid Appearance Cloudy Body Fluid Color Yellow Body Fluid Volume 4 mL Body Fluid WBC 2099 /mcL N 23 Body Fluid RBC 1627 /mcL Body Fluid Neutrophils 15 % Body Fluid Lymph 75 % Body Fluid [place] 10 % Body Fluid Total Cells Counted 100 Fluid Reviewed By MD (SEE NOTE) 24 Laboratory test 07/27/2018 [facility] Body Fluid SEE RESULT [address] C&S BELOW [place], [place] [address] [phone] Gram Stain Smear <pending> Body Fluid Crystals <pending> Miscellaneous Test See Comment 26 Laboratory test 05/18/2018 [facility] Culture Genital & SEE RESULT [address] Sensitivity BELOW [place], [place] [address] [phone] Laboratory test 05/18/2018 [facility] Culture Genital & SEE RESULT [address] [place] [place] [address] [phone] Laboratory test 05/18/2018 [facility] Culture Genital & SEE RESULT [address] Sensitivity BELOW [place], [place] [address] [phone] Laboratory test 05/18/2018 [facility] Fungal SEE RESULT [address] [place] [address] [phone] Laboratory test 05/18/2018 [facility] Culture Genital & SEE RESULT [address] [place] [place] [address] [phone] CBC Auto Diff 05/03/2018 [facility] White Blood Count 3.4 10^3/ uL Low 3.5- [address] 10.8 [place] [address] [phone] Red Blood Count 3.05 10^6/uL Low 4.00-5.40 [...] Cells % 0.3 Comp Metabolic Panel 05/03/2018 [facility] Sodium 138 mmol/L N 135-[address] [place] [address] [phone] Potassium 3.7 mmol/L N 3.5-5.0 Chloride 105 [...] >60 Egfr 127.5 >60 32 Laboratory 04/17/2018 [facility] Gardnerella/Yeast: SEE RESULT 33, 34 test finding [address] [place] [address] [phone] Cytology SEE RESULT BELOW 35 Urine Culture And 04/17/2018 [facility] Urine SEE RESULT 36 , [address] [place] [place] [address] [phone] CBC Auto Diff 04/13/2018 [facility] White Blood 5.5 10^3/uL N 3.5-[address] Count 0.8 [place] [address] [phone] Red Blood Count 3.59 10^6/uL Low 4.00-5.40 [...] Cells % 0.3 Comp Metabolic Panel 04/13/2018 [facility] Sodium 136 mmol/L N 135-[address] [place] [address] [phone] Potassium 3.9 mmol/L N 3.5-5.0 Chloride 104 [...] >60 Egfr 130.0 >60 38 GC/Chlamydia 04/02/2018 [facility] Chlamydia Negative Negative Amplified Rna [address] [place] [address] [phone] Neisseria gonorrhoeae (GC) Rna Negative Negative Urine Culture And 04/02/2018 [facility] Urine Culture SEE RESULT [address] [place] [address] [phone] Urinalysis Profile 04/02/2018 [facility] Urine Color Yellow [address] [place] [address] [phone] Urine Appearance Cloudy Urine Specific Tell 1.010 N 1.010-1.030 Urine pH 6.0 N 5-9 Urine Urobilinogen Negative Negative Urine Ketones Negative Negative Urine Protein Negative Negative Urine Leukocytes Negative Negative Urine Blood Negative Negative Urine Nitrite Negative Negative Urine Bilirubin Negative Negative Urine Glucose Negative Negative Laboratory test 03/23/2018 [facility] Hemoglobin A1c 5.8 % High 4.0-5.[address] (Glyco HGB) [place] [address] [phone] Comp Metabolic 03/23/2018 [facility] Sodium 138 N 135-[address] mmol/[place] [address] [phone] Potassium 3.8 mmol/L N 3.5-5.0 Chloride 104 [...] 130.0 >60 41 CBC Auto Diff 03/23/2018 [facility] White Blood 3.6 10^3/uL N 3.5-10.[address] [place] [address] [phone] Red Blood Count 3.47 10^6/uL Low 4.00-5.40 [...] Cells % 0.5 Comp Metabolic Panel 03/02/2018 [facility] Sodium 137 mmol/L N 135-[address] [place] [address] [phone] Potassium 3.8 mmol/L N 3.5-5.0 Chloride 105 [...] 132.6 >60 42 CBC Auto Diff 03/02/2018 [facility] White Blood 4.3 10^3/uL N 3.5-10.[address] [place] [address] [phone] Red Blood Count 3.63 10^6/uL Low 4.00-5.40 [...] Blood Cells % 0.3 Laboratory test 02/27/2018 [facility] Culture Genital & SEE RESULT [address] [place] [place] [address] [phone] CBC Auto Diff 02/09/2018 [facility] White Blood Count 4.7 10^3/ uL N 3.5-[address] 0.8 [place] [address] [phone] Red Blood Count 3.61 10^6/uL Low 4.00-5.40 [...] Cells % 0.3 Comp Metabolic Panel 02/09/2018 [facility] Sodium 137 mmol/L N 135-[address] [place] [address] [phone] Potassium 3.6 mmol/L N 3.5-5.0 Chloride 103 [...] Egfr 100.1 >60 44 CBC Auto 01/19/2018 [facility] White Blood 12.6 10^3/uL High 3.5-10.[address] [place] [address] [phone] Red Blood Count 3.97 10^6/uL Low 4.00-5.40 [...] Cells % 0 Comp Metabolic Panel 01/19/2018 [facility] Sodium 137 mmol/L N 135-[address] [place] [address] [phone] Potassium 3.6 mmol/L N 3.5-5.0 Chloride 104 [...] Egfr 101.7 >60 45 Laboratory test 01/17/2018 [facility] HCG 1.34 mIU/mL [address] [place] [address] [phone] Urine Culture And 01/02/2018 [facility] Urine Culture SEE RESULT [address] [place] [address] [phone] GC/Chlamydia 01/02/2018 [facility] Chlamydia Negative Negative Amplified Rna [address] [place] [address] Rna [phone] Neisseria gonorrhoeae (GC) Rna Negative Negative Ua Routine 01/02/2018 [facility] Ua Specific Tell 1.000 Ua PH 6 Ua Color light yellow Ua Appera clear Ua WBC large Ua Protein trace Ua Glucose neg Ua Ketones neg Ua Bilirubin neg Ua Urobilinogen neg Ua Nitrite neg Ua Occult Blood trace Order 09/15/2017 [facility] EKG <pending> Laboratory test 08/28/2017 [facility] Surgical SEE RESULT 48, [address] [place] [address] [phone] Inr/Protime 08/14/2017 [facility] Inr 0.92 N 0.77- [address] 1.02 [place] [address] [phone] Laboratory test 08/14/2017 [facility] Partial Thrombo 29.9 seconds N 26.0- finding [address] Time PTT 36.3 [place] [address] [phone] Lactic Acid 0.7 mmol/L N 0.5-2.0 50 Type & Screen 08/14/2017 [facility] Patient Blood Type O Positive [address] [place] [address] [phone] Antibody Screen NEGATIVE Laboratory test 08/14/2017 [facility] Blood Culture SEE RESULT [address] [place] [address] [phone] Urinalysis 08/14/2017 [facility] Urine Appearance Cloudy Profile [address] [place] [address] [phone] Urine Specific Tell 1.009 Low 1.010-1.030 Urine pH 7.0 N [...] Color Red Abnormal Laboratory test finding 08/14/2017 [facility] Amylase 37 U/L N 29-[address] [place] [address] [phone] Lipase 26 U/L N 11.0-82.0 CBC Auto Diff 08/14/2017 [facility] White Blood 5.3 10^3/uL N 3.5-10.[address] [place] [address] [phone] Red Blood Count 3.74 10^6/uL Low 4.0-5.4 [...] Cells % 0 Comp Metabolic Panel 08/14/2017 [facility] Sodium 135 mmol/L N 133-145 [address] [place] [address] [phone] Potassium 3.5 mmol/L N 3.5-5.0 Chloride 101 [...] 101.6 >60 52 CBC Auto Diff 08/11/2017 [facility] White Blood 3.9 10^3/uL N 3.5-10.[address] [place] [address] [phone] Red Blood Count 3.98 10^6/uL Low 4.0-5.4 [...] Blood Cells % 0.1 Laboratory test 08/11/2017 [facility] Partial 29.7 seconds N 26.0-36.3 [address] [place] [address] PTT [phone] Inr/Protime 08/11/2017 [facility] Inr 0.98 N 0.77-1.[address] [place] [address] [phone] Comp Metabolic 08/11/2017 [facility] Sodium 134 mmol/L N 133- [address] [place] [address] [phone] Potassium 3.6 mmol/L N 3.5-5.0 Chloride 102 [...] Egfr 101.6 >60 55 Laboratory test 08/11/2017 [facility] HCG < 0.60 [address] mIU/[place] [address] [phone] Basic Metabolic 06/02/2017 [facility] Sodium 132 mmol/L Low 133-[address] [place] [address] [phone] Potassium 3.8 mmol/L N 3.5-5.0 Chloride 102 mmol/L N 101-111 Co2 Carbon Dioxide 24 mmol/L N 22-32 Anion Gap 6 mmol/L N 2-11 Glucose 109 mg/dL High 70-100 Blood Urea Nitrogen 18 mg/dL N 6-24 Creatinine 0.70 mg/dL N 0.51-0.95 BUN/Creatinine Ratio 25.7 High 8-20 Calcium 9.6 mg/dL N 8.6-10.3 Egfr Non- 88.6 >60 Egfr 113.9 >60 57 Ua Routine 01/31/2017 [facility] Ua Specific Tell 1.015 Ua PH 5 Ua Color light yellow Ua Appera clear Ua WBC - Ua Protein - Ua Glucose norm Ua Ketones - Ua Bilirubin - Ua Urobilinogen norm Ua Nitrite - Ua Occult Blood - Basic Metabolic 11/23/2016 [facility] Sodium 132 mmol/L Low 133-[address] [place] [address] [phone] Potassium 4.3 mmol/L N 3.5-5.0 Chloride 102 mmol/L N 101-111 Co2 Carbon Dioxide 27 mmol/L N 22-32 Anion Gap 3 mmol/L N 2-11 Glucose 102 mg/dL High 70-100 Blood Urea Nitrogen 18 mg/dL N 6-24 Creatinine 0.78 mg/dL N 0.51-0.95 BUN/Creatinine Ratio 23.1 High 8-20 Calcium 9.7 mg/dL N 8.6-10.3 Egfr Non- 78.2 N >60 Egfr 100.5 N >60 58 Lipid Profile 11/23/2016 [facility] Triglycerides 54 mg/dL N 59 (Trig/Chol/HDL) [address] [place] [address] [phone] Cholesterol 210 mg/dL N 60 HDL Cholesterol 65.9 mg/dL N 61 LDL Cholesterol 133 mg/dL N 62 HIV 1/2 AB 11/23/2016 [facility] HIV 1 2 Nonreactive N Nonreactive [address] [place] [address] [phone] Ua Routine 10/19/2016 [facility] Ua Specific 1.000 Tell Ua PH 7 Ua Color LIGHT YELLOW Ua Appera CLEAR Ua WBC NEGATIVE Ua Protein NEGATIVE Ua Glucose NORMAL Ua Ketones NEGATIVE Ua Bilirubin NEGATIVE Ua Urobilinogen NORMAL Ua Nitrite NEGATIVE Ua Occult Blood NEGATIVE Laboratory 10/19/2016 [facility] Gardnerella/Yeast: SEE RESULT 64, 65 test finding [address] [place] [address] [phone] Trichomonas Vaginalis Rna Negative N Negative 66 GC/Chlamydia 10/19/2016 [facility] Chlamydia Negative N Negative Amplified Rna [address] [place] [address] [phone] Neisseria gonorrhoeae (GC) Rna Negative N Negative Laboratory test 10/19/2016 [facility] Test negative finding Urine Laboratory test 08/18/2016 [facility] Amylase 47 U/L N 29-[address] [place] [address] [phone] Lipase 33 U/L N 11.0-82.0 C Reactive Protein < 1.00 mg/L N < 5.00 67 Lactic Acid 0.4 mmol/L Low 0.5-2.0 68 HCG < 0.60 mIU/mL N 69 Comp Metabolic Panel 08/18/2016 [facility] Sodium 133 mmol/L N 133-[address] [place] [address] [phone] Potassium 3.8 mmol/L N 3.5-5.0 Chloride 103 [...] N >60 70 CBC Auto Diff 08/18/2016 [facility] White Blood 3.5 10^3/uL N 3.5-10.[address] [place] [address] [phone] Red Blood Count 4.09 10^6/uL N 4.0-5.4 [...] Cells % 0.1 N Urinalysis Profile 08/18/2016 [facility] Urine Color Yellow N [address] [place] [address] [phone] Urine Appearance Cloudy N Urine Specific Tell 1.010 N 1.010-1.030 Urine pH 8.0 N 5-9 Urine Urobilinogen Negative N Negative Urine Ketones Negative N Negative Urine Protein Negative N Negative Urine Leukocytes Negative N Negative Urine Blood Negative N Negative Urine Nitrite Negative N Negative Urine Bilirubin Negative N Negative Urine Glucose Negative N Negative Laboratory 08/18/2016 [facility] Lactic Acid 0.4 mmol/L Low 0.5-2.0 [address] [place] [address] [phone] Laboratory 08/18/2016 [facility] Gardnerella/Ye SEE RESULT 72, test finding [address] ast: Vaginal BELOW [address] [place] [address] Dna [phone] GC/Chlamydia 08/18/2016 [facility] Chlamydia Negative N Negative Amplified Rna [address] [place] [address] Rna [phone] Neisseria gonorrhoeae (GC) Rna Negative N Negative CBC Auto Diff 06/04/2016 [facility] White Blood 5.9 10^3/uL N 3.5-10.[address] [place] [address] [phone] Red Blood Count 4.18 10^6/uL N 4.0-5.4 [...] % 0 N Comp Metabolic Panel 06/04/2016 [facility] Sodium 128 mmol/L Low 133-[address] [place] [address] [phone] Potassium 3.7 mmol/L N 3.5-5.0 Chloride 105 [...] 104.0 N >60 74 Laboratory test 06/04/2016 [facility] C Reactive 4.17 mg/L N < 5.00 [address] [place] [address] [phone] Urinalysis 06/04/2016 [facility] Urine Color Sher N Profile [address] [place] [address] [phone] Urine Appearance Cloudy N Urine Specific Tell 1.012 N 1.010-1.030 Urine pH 6.0 N [...] Epithelial Cell Present Abnormal Absent Laboratory 06/04/2016 [facility] Gardnerella/Yeast: SEE RESULT 77 test finding [address] [place] [address] [phone] Laboratory 06/04/2016 [facility] Trichomonas Negative N Negative 78 test finding [address] Vaginalis Rna [place], [place] [address] [phone] GC/Chlamydia 06/04/2016 [facility] Chlamydia Negative N Negative Amplified Rna [address] [place] [address] [phone] Neisseria gonorrhoeae (GC) Rna Negative N Negative Urine Culture And 06/04/2016 [facility] Urine Culture SEE RESULT [address] [place] [address] [phone] CBC Auto Diff 05/07/2016 [facility] White Blood 4.4 10^3/uL N 3.5-[address] Count 0.8 [place], [place] [address] [phone] Red Blood Count 4.12 10^6/uL N 4.0-5.4 [...] Cells % 0 N Laboratory test 05/07/2016 [facility] TSH (Thyroid 0.23 Low 0.34-5.[address] Stim Horm) mcIU/[place] [address] [phone] Comp Metabolic 05/07/2016 [facility] Sodium 133 mmol/L N 133- [address] [place] [address] [phone] Potassium 4.2 mmol/L N 3.5-5.0 Chloride 102 [...] N >60 82 Basic Metabolic Panel 01/26/2016 [facility] Sodium 135 mmol/L N 133-[address] [place] [address] [phone] Potassium 3.9 mmol/L N 3.5-5.0 Chloride 102 mmol/L N 101-111 Co2 Carbon Dioxide 28 mmol/L N 22-32 Anion Gap 5 mmol/L N 2-11 Blood Urea Nitrogen 15 mg/dL N 6-24 Creatinine 0.80 mg/dL N 0.51-0.95 BUN/Creatinine Ratio 18.8 N 8-20 Calcium 9.8 mg/dL N 8.6-10.3 Egfr Non- 76.2 N >60 Egfr 98.0 N >60 83 Lipid Profile 01/26/2016 [facility] Triglycerides 49 mg/dL N 84 (Trig/Chol/HDL) [address] [place] [address] [phone] Cholesterol 171 mg/dL N 85 HDL Cholesterol 65.0 mg/dL N 86 LDL Cholesterol 96 mg/dL N 87 Laboratory test 01/26/2016 [facility] Glucose 85 mg/dL N 70- [address] [place] [address] [phone] Laboratory test 01/25/2016 [facility] HCG < 0.60 N 88 finding 101 mIU/[place] [address] [phone] Blood Urea Nitrogen BUN 16 mg/dL N 6-24 Creatinine 01/25/2016 [facility] Creatinine 0.85 mg/dL N 0.51- 0.95 [address] [place] [address] [phone] Egfr Non- 71.1 N >60 Egfr 91.4 N >60 89 Ua Routine 03/17/2015 [facility] Ua Specific Tell 1.005 Ua PH 8.5 Ua Color sher Ua Appera clear Ua WBC neg Ua Protein neg Ua Glucose neg Ua Ketones trace Ua Bilirubin neg Ua Urobilinogen normal Ua Nitrite neg Ua Occult Blood large 200+ Laboratory test 02/24/2015 [facility] Hemoglobin A1c 5.6 % N Less than 90 finding 101 (Glyco HGB) 6.0 [place] [address] [phone] Comp Metabolic 02/24/2015 [facility] Sodium 136 N 133-145 Panel 101 mmol/[place] [address] [phone] Potassium 4.0 mmol/L N 3.5-5.0 Chloride 103 [...] 90.6 N >60 91 CBC Auto 02/24/2015 [facility] White Blood 2.8 10^3/uL Low 4.8 -10.[address] [place] [address] [phone] Red Blood Count 3.83 10^6/uL Low 4.0-5.4 [...] % 0.1 N Comp Metabolic Panel 12/10/2013 [facility] Sodium 136 mmol/L N 133-[address] [place] [address] [phone] Potassium 4.0 mmol/L N 3.7-5.6 Chloride 104 [...] 97.5 N >60 93 Lipid Profile 12/10/2013 [facility] Triglycerides 49 mg/dL N 94 (Trig/Chol/HDL) [address] [place] [address] [phone] Cholesterol 196 mg/dL N 95 HDL Cholesterol 60.5 mg/dL N 96 LDL Cholesterol 126 mg/dL N 97 CBC Auto 12/10/2013 [facility] White Blood 3.6 10^3/uL Low 4.8 -10.[address] [place] [address] [phone] Red Blood Count 3.89 10^6/uL Low 4.0-5.4 [...] Cells % 0.1 N Urinalysis W/Microscopic 09/21/2012 [facility] Urine Color Yellow [address] [place] [address] [phone] Urine Appearance Clear Urine Specific Tell 1.010 1.010-1.030 Urine Esterase Negative Negative Urine Nitrate Negative Negative Urine Urobilinogen Negative E.U./dL Negative Urine Protein Negative mg/dL Negative Urine pH 7.0 5-9 Urine Blood Negative Negative Urine Ketones Negative mg/dL Negative Urine Bilirubin Negative Negative Urine Glucose Negative mg/dL Negative Urine Epithelial Cells 1+ Squamous /hpf None Seen Lipid Profile 09/21/2012 [facility] Triglycerides 29 mg/dL Low 40-200 (Trig/Chol/HDL) [address] [place] [address] [phone] Cholesterol 207 mg/dL High Less than 200 HDL Cholesterol 53 mg/dL 40-60 98 Cholesterol/HDL Ratio 3.9 Average 1-4.44 LDL Cholesterol 148.2 mg/dL High Less Than 100 99 CBC Auto 09/21/2012 [facility] White Blood 4.0 10^3/uL Low 4.8 -10.[address] [place] [address] [phone] Red Blood Count 3.77 10^6/uL Low 4.0-5.4 [...] Blood Cells % 0.1 Laboratory test 09/21/2012 [facility] TSH (Thyroid 0.46 0.34- 5.60 [address] Stimulating miu/[place] [address] Horm) [phone] Comp Metabolic 09/21/2012 [facility] Sodium 136 mmol/L 133- [address] [place] [address] [phone] Potassium 4.0 mmol/L 3.5-5.0 Chloride 105 mmol/L [...] Egfr 99.3 >60 101 Laboratory test 08/27/2012 [facility] Cytology RUN DATE: [address] 08/31/ <[place] [address] NOTE> [phone] Human Papilloma 08/27/2012 [facility] Human CERV Virus [address] [place] [address] Source [phone] Human Papillomavirus High Risk Negative Negative 103 Laboratory test 04/17/2012 [facility] Affirm (SEE NOTE) [address] [place] [place] [address] Probe [phone] CBC Auto Diff 01/24/2012 [facility] White Blood 4.4 CUMM Low 4.8-[address] Count .8 [place] [address] [phone] Red Cell Count 3.79 CUMM Low 4.2-5.4 [...] Abs Basophils 0 0-0.2 Retic Count 01/24/2012 [facility] Reticulocyte Count 1.27 % 0.5-1.[address] [place] [address] [phone] Corrected Retic 0.9 % 0.5-1.5 Retic Index 0.6 Mean Retic Volume 104.6 Immature Retic Fraction 0.36 RBC Retic Count 3.79 CUMM Low 4.6-6.2 Hematocrit For Retic Coun 32 % Low 35-47 Laboratory test finding 01/24/2012 [facility] LDH 141 U/L 95- [address] [place], [place] [address] [phone] Vitamin B12 777 pg/mL 180-914 Erythropoietin 8.1 mIU/mL 2.6 - 18.5 105 CBC Auto Diff 01/04/2012 [facility] White Blood 5.0 CUMM 4.8- 10.[address] [place] [address] [phone] Red Cell Count 3.69 CUMM Low 4.2-5.4 Hemoglobin 11.2 g/dL Low 12.0-16.0 Hematocrit 32 % Low 35-47 Mean Corpuscular Volume 86 um3 79-97 Mean Corpuscular Hemoglob 30 pg 27-31 Mean Corpuscular HGB Cone 36 g/dL 32-36 Redcell Distribution WDTH 13 % 10.5-15 Platelet Count 284 CUMM 150-450 Mean Platelet Volume 6.9 um3 Low 7.4-10.4 Absolute Neutrophil Count 2.9 1.5-7.7 Lipid Profile 01/04/2012 [facility] Triglyceride 67 mg/dL 40- 200 (Trig/Chol/HDL) [address] [place] [address] [phone] Cholesterol 213 mg/dL High Less Than 200 106 High Density Lipoprotein 60 mg/dL 40-60 107 Cholesterol/HDL Ratio 3.55 AVERAGE 1-4.44 Low Density Lipoprotein 140 mg/dL High Less Than 100 108 Laboratory test 01/04/2012 [facility] TSH 0.66 0.34-5.[address] MIU/ML [place], [place] [address] [phone] Hemoglobin 01/04/2012 [facility] Hemoglobin A2 2.7 % 2.0-3.[address] [place] [address] [phone] Hemoglobin F 0.2 % 0.0-0.9 Hemoglobin A 97.1 % 95.8-98.0 Hemoglobin Variant 0.0 % () 109 HGB Electrophoresis Interp . () 110 Celiac Panel 01/04/2012 [facility] Endomysial Abs Negative Negative [address] [place] [address] [phone] Gliadin Igg <10.0 U () 112 Gliadin Iga <10.0 U () 113 Reticulin AB Negative Negative 114 Manual Differential 01/04/2012 [facility] Polysegmented 53 % 38-[address] [place] [address] [phone] Lymphocyte 39 % 25-47 Monocyte 6 % 0-13 Eosinophil 1 % 0-6 Basophil 1 % 0-2 Laboratory test 01/02/2012 [facility] Cytology <SEE [address] NOTE> [place] [address] [phone] Comp Metabolic 11/28/2011 [facility] Sodium 135 mmol/L 135- Panel [address] [place] [address] [phone] Potassium 4.1 mmol/L 3.5-5.0 Chloride 101 mmol/L [...] 116.4 > 60 118 Laboratory test 11/28/2011 [facility] Folic Acid 23.3 NG/ML See Below 119 finding 101 [place] [address] [phone] Vitamin B12 729 pg/mL 180-914 Iron & Iron Binding 11/28/2011 [facility] Iron Total 97 g/dL 28-170 Capacity [address] [place] [address] [phone] Unsaturated Iron Binding 310 g/dL Total Iron Binding Capacity 407 g/dL 250-450 % Iron Saturation 24 % 15-55 Laboratory test 11/28/2011 [facility] Sickle Cell NEGATIVE Negative finding [address] [place] [address] [phone] Laboratory test 11/18/2011 [facility] Ferritin 19 NG/ML 11.0- 307 finding [address] [place] [address] [phone] CBC Auto Diff 11/18/2011 [facility] White Blood 5.0 CUMM 4.8- 10.8 101 [facility] [place] [address] [phone] Red Cell Count 3.71 CUMM Low 4.2-5.4 [...] Abs Basophils 0 0-0.2 Laboratory test 08/15/2011 [facility] Ferritin 22 NG/ML 11.0- 307 finding [address] [place] [address] [phone] Vitamin B12 653 pg/mL 180-914 Folic Acid 19.5 NG/ML See Below 120 Iron & Iron Binding 08/15/2011 [facility] Iron Total 99 g/dL 28-170 Capacity [address] [place] [address] [phone] Unsaturated Iron Binding 287 g/dL Total Iron Binding Capacity 386 g/dL 250-450 % Iron Saturation 26 % 15-55 Comp Metabolic Panel 07/07/2011 [facility] Sodium 134 mmol/L Low 135-145 [address] [place] [address] [phone] Potassium 4.3 mmol/L 3.5-5.0 Chloride 102 mmol/L [...] 99.8 > 60 123 Laboratory test 07/07/2011 [facility] Digoxin < 0.1 NG/ML Low 0.5-1.[address] [address] [phone] Please check labs today 2 Please [...] [address]: Krystyna Ayala MD Acct: [id number] Unit: [id number] AGE: 53 Location: [facility] Re09/06/18 SEX: F Status: REG REF SPEC: [id number] LATASHA: 09/06/18-[address]: Krystyna Ayala MD REQ: [id number] RECD: 09/06/18 STATUS: COMP _ SOURCE: VAGINAL SPDESC: ORDERED: Nevaeh,Yeast DNA COMMENTS: [id number] Would you like to order Trichomonas Vaginalis [...] . END OF REPORT DEPARTMENT OF PATHOLOGY, [address] [place] [address] Silvestre Collier M.D. Director [facility] # [id number] GC/Chlamydia Source?: Endocervical Trichomonas Source: Endocervical 6 [...] <15 (or dialysis) 11 Test Performed by: [place] [id number] 12 Normal values may vary with age, [...] developed and its performance characteristics determined by [facility] in a manner consistent with CLIA requirements. This test has not been cleared or approved by the U.S. Food and Drug Administration. Test Performed by: [facility] [place] [address] 14 Interpretation: Weak Positive (15.0-39.9) REFERENCE VALUE <15.0 (Negative) 15 REFERENCE VALUE <15.0 (Negative) Test Performed by: [place] [address] 16 Test Performed by: [place] [address] 17 Test Performed by: [place] [address] 18 REFERENCE VALUE <30.0 (Negative) Test Performed by: [place] [id number] 19 This test is negative at 24 hours. All samples are held and reviewed again at 7 days. If delayed precipitation occurs after 7 days, Immunofixation will be performed and an additional report will follow. 20 Test Performed by: [place] [address] 21 Test Performed by: [facility] [address] [place] [id number] Silvestre Collier M.D. Director of Laboratory 22 Interpretation: Strong Positive (>=60.0) REFERENCE VALUE <20.0 (Negative) Test Performed by: [place] [address] 23 -- REFERENCE VALUE -- Synovial: <150/mcL Peritoneal: <500/mcL Pleural: <500/mcL Pericardial: <500/mcL 24 Mixed acute and chronic inflammation. No evidence of malignancy. Reviewed by Korteny Lugo MD 25 SEE RESULT BELOW Name: ONEIDA REESE Harpreet : [address]: Justyn Gabriel MD Acct: [id number] Unit: [id number] AGE: 53 Location: [facility] Re07/27/18 SEX: F Status: REG REF SPEC: [id number] LATASHA: 07/27/181140 SUBM DR: Justyn Gabriel MD REQ: [id number] RECD: 07/27/18 STATUS: COMP _ SOURCE: JOINT FLUI SPDESC:KNEE RIGHT ORDERED: BF Cult/GS, MRSA/SA SSTI Procedure Result Reported Site Body Fluid Gram Stain Final 07/28/18- 815 ML 4+ Neutrophils 4+ Nucleated Cells No Organisms Seen Preparation By Cytospin Smear Body Fluid Culture Final 07/31/18- 958 ML No Growth Day 4 MRSA/S. aureus SSTI PCR Final 07/27/18- 2130 ML Organism 1 MRSA NEGATIVE Organism 2 S.AUREUS NEGATIVE * ML - Main Lab . END OF REPORT DEPARTMENT OF PATHOLOGY, [address] [place] [address] Silvestre Collier M.D. Director [facility] # [id number] 26 Test Result Flag Unit RefValue Crystal ID, Synovial Fl See Comment A None seen RESULT: No CPPD or Urate crystals seen. Reviewed By: Tech Test Performed by: [facility] - [address] [address] 27 SEE RESULT BELOW Name: ONEIDA REESE : [address]: Maite King MD Acct: [id number] Unit: [id number] AGE: 52 Location: [facility] Re05/18/18 SEX: F Status: REG REF SPEC: [id number] LATASHA: 05/18/18-[address] [facility] [address]: Maite King MD REQ: [id number] RECD: 05/18/18-1727 STATUS: RES OT DR: Haylee Cordero MD _ SOURCE: VAGINAL SPDESC: ORDERED: Genital Culture, Fungal - Other COMMENTS: Verbal to [id number] by [id number] at 1353 on 05/21/18. Results read back [...] . END OF REPORT DEPARTMENT OF PATHOLOGY, [address] [place] [address] Silvestre Collier M.D. Director [facility] # [id number] 28 SEE RESULT BELOW Name: ONEIDA REESE : [address]: Maite King MD Acct: [id number] Unit: [id number] AGE: 52 Location: [facility] Re05/18/18 SEX: F Status: REG REF SPEC: [id number] LATASHA: 05/18/18-396 [facility] [address]: Maite King MD REQ: [id number] RECD: 05/18/18 STATUS: RES OTHR DR: Haylee Cordero MD _ SOURCE: VAGINAL SPDESC: ORDERED: Genital Culture, Fungal - Other COMMENTS: Verbal to [id number] by [id number] at 1353 on 05/21/18. Results read back [...] . END OF REPORT DEPARTMENT OF PATHOLOGY, [address] [place] [address] Silvestre Collier M.D. Director [facility] # [id number] 29 SEE RESULT BELOW Name: ONEIDA REESE : [address]: Maite King MD Acct: [id number] Unit: [id number] AGE: 52 Location: [facility] Re05/18/18 SEX: F Status: REG REF SPEC: [id number] LATASHA: 05/18/18-1545 [facility] [address]: Maite King MD REQ: [id number] RECD: 05/18/18 STATUS: RES [facility] DR: Haylee Cordero MD _ SOURCE: VAGINAL SPDESC: ORDERED: Genital Culture, Fungal - Other COMMENTS: Verbal to [id number] by [id number] at 1353 on 05/21/18. Results read back [...] . END OF REPORT DEPARTMENT OF PATHOLOGY, [address] [place] [address] Silvestre Collier M.D. Director [facility] # [id number] 30 SEE RESULT BELOW Name: ONEIDA REESE : [address]: Maite King MD Acct: [id number] Unit: [id number] AGE: 52 Location: [facility] Re05/18/18 SEX: F Status: REG REF SPEC: [id number] LATASHA: 05/18/18-15[address] [facility] [address]: Maite King MD REQ: [id number] RECD: 05/18/18 STATUS: ISACC WATTERS DR: Haylee [...] CONTINUED ON NEXT PAGE DEPARTMENT OF PATHOLOGY, [address] [place] [address] Silvestre Collier M.D. Director [facility] # [id number] Patient: ONEIDA REESE [id number] (Continued) Specimen: [id number] Collected: 05/18/18 Received: 05/18/18 (Continued) Procedure Result Reported Site Fungal Sensitivities Final (continued) 06/08/18- 1334 [1] Antifungal susceptibility testing was performed using broth microdilution method for all drugs except Amphotericin B and 5-flucytosine in accordance with current Clinical and Laboratory Standards [place] (CLSI) standard M27-A3 and in accordance with Clinical Laboratory Improvement Amendments (CLIA) regulations. [2] The JUSTIN breakpoints for echinocandins, fluconazole and voriconazole are based upon CLSI M27-S4 document [3] JUSTIN equal to or less than 32: Expert consultation on selection of a maximum dosage regimen may be useful * The performance characteristics of this test were determined by the [facility]. It has not been cleared or approved by the U.S. Food and Drug Administration. Test Performed by: [address] [address] * - Main Lab . END OF REPORT DEPARTMENT OF PATHOLOGY, [address] [place] [address] Silvestre Collier M.D. Director [facility] # [id number] 31 SEE RESULT BELOW Name: MADHAVONEIDA : [address]: Maite King MD Acct: [id number] Unit: [id number] AGE: 53 Location: [facility] Re05/18/18 SEX: F Status: REG REF SPEC: [id number] LATASHA: 05/18/18-15[address] [facility] [address]: Maite King MD REQ: [id number] RECD: 05/18/18 STATUS: COMP [facility] DR: Haylee Cordero MD _ SOURCE: VAGINAL SPDESC: ORDERED: Genital Culture, Fungal - Other COMMENTS: Verbal to [id number] by [id number] at 1353 on 05/21/18. Results read back [...] testing available upon request. * ML - [facility] . END OF REPORT DEPARTMENT OF PATHOLOGY, [address] [place] [address] Silvestre Collier M.D. Director [facility] # [id number] 32 Because ethnic data is not always [...] 5 Kidney failure <15 (or dialysis) 33 [id number] 34 SEE RESULT BELOW Name: ONEIDA REESE Harpreet : [address]: Krystyna Ayala MD Acct: [id number] Unit: [id number] AGE: 52 Location: [facility] Re04/17/18 SEX: F Status: REG REF SPEC: [id number] LATASHA: 04/17/18-[address] [facility] [address]: Krystyna Ayala MD REQ: [id number] RECD: 04/17/18407 STATUS: COMP _ SOURCE: VAGINAL SPDESC: ORDERED: Nevaeh,Yeast DNA, Trich DNA COMMENTS: [id number] Would you like to order Trichomonas Vaginalis [...] CONTINUED ON NEXT PAGE DEPARTMENT OF PATHOLOGY, [address] [place] [address] Silvestre Collier M.D. Director [facility] # [id number] Patient: MADHAVONEIDA A [id number] (Continued) Specimen: [id number] Collected: 04/17/18 Received: 04/17/18 (Continued) Procedure Result Reported Site Trichomonas: Vaginal DNA Probe Final (continued) 04/18/18- 1329 The presence or absence of T. vaginalis cannot be used as a test for therapeutic success or failure. * - [facility] . END OF REPORT DEPARTMENT OF PATHOLOGY, [address] [place] [address] Silvestre Collier M.D. Director [facility] # [id number] 35 SEE RESULT BELOW Name: ONEIDA REESE : [address]: Krystyna Ayala MD Acct: [id number] Unit: [id number] AGE: 52 Location: [facility] Re04/17/18 SEX: F Status: REG REF SPEC: [id number] LATASHA: 04/17/18-[address]: Krystyna Ayala MD REQ: [id number] RECD: 04/17/18 STATUS: SOUT _ ORDERED: TP IMAGE ANALYS, HPV/Thin Prep COMMENTS: [id number] Negative for Intraepithelial lesion or Malignancy Date [...] was evaluated with the assistance of the [employer]Prep Test Imaging System. Due to cytologic findings at the experimental rocket sled mechanic microscope, comprehensive manual rescreening by a Golf Cart Mechanic may be required. The Pap Smear is [...] years. END OF REPORT DEPARTMENT OF PATHOLOGY, [address] [place] [address] Silvestre Collier M.D. Director [facility] # [id number] 36 [id number] 37 SEE RESULT BELOW Name: ONEIDA REESE : [address]: Krystyna Ayala MD Acct: [id number] Unit: [id number] AGE: 52 Location: [facility] Re04/17/18 SEX: F Status: REG REF SPEC: [id number] LATASHA: 04/17/18-[address] [facility] [address]: Krystyna Ayala MD REQ: [id number] RECD: 04/17/18 STATUS: COMP _ SOURCE: URINE SPDESC: ORDERED: Urine Culture COMMENTS: [id number] Urine Source: Random Procedure Result Reported Site Urine Culture Final 04/18/18- 1616 ML No Growth (<1,000 CFU/mL) * - [facility] . END OF REPORT DEPARTMENT OF PATHOLOGY, [address] [place] [address] Silvestre Collier M.D. Director [facility] # [id number] 38 Because ethnic data is not always [...] 39 SEE RESULT BELOW Name: ONEIDA REESE : [address]: Maite King MD Acct: [id number] Unit: [id number] AGE: 52 Location: [facility] Re04/02/18 SEX: F Status: REG REF SPEC: [id number] LATASHA: 04/02/18 [facility] [address]: Maite King MD REQ: [id number] RECD: 04/02/18 STATUS: ISACC WATTERS DR: Haylee Cordero MD _ SOURCE: URINE SPDESC: ORDERED: Urine Culture QUERIES: Urine Source: Random Procedure Result Reported Site Urine Culture Final 04/03/18- 0839 ML No Growth (<1,000 CFU/mL) * ML - Main Lab . END OF REPORT DEPARTMENT OF PATHOLOGY, [address] [place] [address] Silvestre Collier M.D. Director [facility] # [id number] 40 Therapeutic target for the treatment of diabetes mellitus patients is <7% HBA1C, and in selective patients <6.0%. Please refer to [place] [employer] diabetic care guidelines for further [...] [address]: Maite King MD Acct: [id number] Unit: [id number] AGE: 52 Location: [facility] Re02/27/18 SEX: F Status: REG REF SPEC: [id number] LATASHA: 02/27/18-[address] [facility] [address]: Maite King MD REQ: [id number] RECD: 02/27/18 STATUS: ISACC WATTERS DR: Haylee [...] . END OF REPORT DEPARTMENT OF PATHOLOGY, [address] [place] [address] Silvestre Collier M.D. Director [facility] # [id number] 44 Because ethnic data is not always [...] : [address]: Milka SANTIAGO Acct: [id number] Unit: [id number] AGE: 52 Location: [facility] Re01/02/18 SEX: F Status: REG REF SPEC: [id number] LATASHA: 01/02/18-1634 [facility] : Milka SANTIAGO REQ: [id number] RECD: 01/02/18-1813 STATUS: COMP _ SOURCE: URINE SPDESC: ORDERED: Urine Culture COMMENTS: [id number] Urine Source: Random Procedure Result Reported Site Urine Culture Final 01/04/18- 08 ML Organism 1 [employer]RO[employer]ER KOSERI Loop Count >100,000 (Many) CFU/ML 1. [employer] KOSERI [...] . END OF REPORT DEPARTMENT OF PATHOLOGY, [address] [place] [address] Silvestre Collier M.D. Director [facility] # [id number] 48 [id number] 49 SEE RESULT BELOW Name: ONEIDA REESE : [address]: Haylee Cordero MD Acct: [id number] Unit: [id number] AGE: 52 Location: [facility] Re08/28/17 SEX: F Status: REG REF SPEC: [id number] LATASHA: 08/28/17-[address] [facility] [address]: Radha Núeñz MD REQ: [id number] RECD: 08/28/17-1546 STATUS: RENATA WATTERS DR: Haylee Cordero MD _ ORDERED: LEVEL 4/2, IMMUNO-FIRST, IMMUNO-ADDL, IMMUNO-QUANT/3 COMMENTS: [id number] Immunohistochemical stains, with appropriately reacting controls, were performed with the following results: ER strongly positive, nearly 100% of tumor cells [place] negative (0%) HER-2/maritza negative (0+) P63 positive [...] grade: 3. Estimated mitotic count: 1. Combined [place] histologic grade: 2/3. (7/9 points). Lymphovascular invasion: Not identified. 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 Extent and distribution: Present in association with invasive carcinoma. Architectural pattern: Cribriform and solid types. Nuclear grade: Intermediate. Necrosis: Absent. ER, [place], and Her2/Maritza by immunohistochemistry with appropriate controls: ER: Pending; results will be reported in an addendum. CONTINUED ON NEXT PAGE DEPARTMENT OF PATHOLOGY, [address] [place] [address] Silvestre Collier M.D. Director [facility] # [id number] RUN DATE: 08/30/17 [facility] LAB LIVE PAGE 2 Patient: ONEIDA REESE [id number] (Continued) FINAL DIAGNOSIS (Continued) [place]: Pending; results will be reported in an [...] 08/13 END OF REPORT DEPARTMENT OF PATHOLOGY, [address] [place] [address] Silvestre Collier M.D. Director [facility] # [id number] [facility] Severe Sepsis and Septic Shock Management Bundle Measure requires all lactic acids initially measuring >2.0 mmol/L be repeated. 51 SEE RESULT BELOW Name: ONEIDA REESE : [address]: Luis Miguel Astorga MD Acct: [id number] Unit: [id number] AGE: 52 Location: ED Re08/14/17 SEX: F Status: DEP ER SPEC: [id number] LATASHA: 08/14/[address]: Jennifer SANTIAGO REQ: [id number] RECD: 08/14/17 STATUS: ISACC WATTERS DR: Haylee Astorga MD _ SOURCE: BLOOD,VENO SPDESC: ORDERED: Blood Cult Procedure Result Reported Site Aerobic Culture Bottle Final 08/19/17- 1935 ML No Growth Day 5 Anaerobic Culture Bottle Final 08/19/17- 1935 ML No Growth Day 5 * ML - Main Lab . END OF REPORT DEPARTMENT OF PATHOLOGY, [address] [place] [address] Silvestre Collier M.D. Director [facility] # [id number] 52 Because ethnic data is not always [...] (or dialysis) 53 CALL RESULTS EXT : [id number] 54 CALL RESULTS EXT : [phone] 55 Because ethnic data is not always [...] confidence interval of 99.78 to 99.96%. 64 [id number] 65 SEE RESULT BELOW Name: ONEIDA REESE : [address]: Haylee Cordero MD Acct: [id number] Unit: [id number] AGE: 51 Location: [facility] Re10/19/16 SEX: F Status: REG REF SPEC: [id number] LATASHA: 10/19/[address] [facility] [address]: Haylee Cordero MD REQ: [id number] RECD: 10/19/16 STATUS: COMP _ SOURCE: VAGINAL SPDESC: ORDERED: Nevaeh,Yeast DNA COMMENTS: [id number] Procedure Result Reported Site Gardnerella/Yeast: Vaginal DNA [...] or failure. * ML - MAIN LAB ([facility]) . END OF REPORT * ML=Testing performed at Main Lab DEPARTMENT OF PATHOLOGY, [address] [place] [address] Silvestre Collier M.D. Director [facility] # [id number] 66 [id number] GC/Chlamydia Source?: Endocervical Trichomonas Source: Endocervical 67 Acute inflammation: >10.00 68 [facility] Severe Sepsis and Septic Shock Management Bundle [...] 5 Kidney failure <15 (or dialysis) 71 [facility] Severe Sepsis and Septic Shock Management Bundle Measure requires all lactic acids initially measuring >2.0 mmol/L be repeated. 72 Would you like to order Trichomonas Vaginalis RNA testing? N 73 SEE RESULT BELOW Name: ONEIDA REESE : [address]: Brigido Noe DO Acct: [id number] Unit: [id number] AGE: 51 Location: ED Re08/18/16 SEX: F Status: DEP ER SPEC: [id number] LATASHA: 08/18/[address] [facility] [address]: Tressa SANTIAGO REQ: [id number] RECD: 08/18/16 STATUS: ISACC WATTERS DR: Brigido [...] performed at Main Lab DEPARTMENT OF PATHOLOGY, [address] [place] [address] Silvestre Collier M.D. Director [facility] # [id number] 74 Because ethnic data is not always [...] [address]: Robert Sánchez MD Acct: [id number] Unit: [id number] AGE: 50 Location: ED Re06/04/16 SEX: F Status: DEP ER SPEC: [id number] LATASHA: 06/04/16-[address]: Robert Sánchez MD REQ: [id number] RECD: 06/04/16 STATUS: COMP [facility] DR: Haylee Cordero MD _ SOURCE: [...] or failure. * ML - MAIN LAB ([facility]) . END OF REPORT * ML=Testing performed at Main Lab DEPARTMENT OF PATHOLOGY, [address] [place] [address] Silvestre Collier M.D. Director [facility] # [id number] 78 GC/Chlamydia Source?: Endocervical Trichomonas Source: Endocervical 79 SEE RESULT BELOW Name: ONEIDA REESE : [address]: Robert Sánchez MD Acct: [id number] Unit: [id number] AGE: 50 Location: ED Re06/04/16 SEX: F Status: DEP ER SPEC: [id number] LATASHA: 06/04/[address] [facility] [address]: Robert Sánchez MD REQ: [id number] RECD: 06/04/16 STATUS: ISACC STEVE DR: Haylee Cordero MD _ SOURCE: [facility] ORDERED: Urine Culture Procedure Result Reported Site Urine Culture Final 06/08/16- 0818 ML Organism 1 PROTEUS MIRABILIS Loop Count >100,000 (Many) CFU/ML Organism 2 NORMAL FERCHO Loop Count 1-10,000 (Few) CFU/ML 1. PROTEUS MIRABILIS [...] performed at Main Lab DEPARTMENT OF PATHOLOGY, [address] [place] [address] Silvestre Colleir M.D. Director [facility] # [id number] FASTING 10 HOUR 81 FASTING 10 [...] and in selective patients <6.0%.Please refer to [place] [employer] Diabetic care guidelines for further [...] <15 (or dialysis) 102 RUN DATE: 08/31/12 [facility] LAB LIVE PAGE 1 RUN TIME: [address] [place], [place] [address] Specimen Inquiry Name: ONEIDA REESE : [address]: Haylee Cordero MD Acct: [id number] Unit: [id number] AGE: 47 Location: [facility] Re08/27/12 SEX: F Status: REG REF SPEC: [id number] LATASHA: 08/27/12-[address] [facility] [address]: Haylee Cordero MD REQ: [id number] RECD: 08/27/12-1601 STATUS: SOUT _ ORDERED: IMAGE ANALYSIS, HPV / Thin Prep HiRisk Human Papilloma Virus test results received with preparation and diagnosis completed by [facility], [place], [place]. Results: NEGATIVE High Risk (for types 16, 18, 31, 33, 35, 39, 45, 51, 52, 56, 58, 59, 68) DiGene Hybrid Capture Specimen Transport Media or Tailwindyc ThinPrep PapTest PreservCyt Solution are the collection systems approved for use with this method by the U.S. Food and Drug Administration. Performance characteristics for AutoCyte (SurPath) collection device have been determined by Laboratory Medicine and Pathology , [facility], [place], [place]. It has not been cleared or approved by the U.S. Food and Drug Administration. Test Performed by: [facility] Dpt of lab Med and Pathology [address] [facility] [address] Major Donor Coordinator: Tu Benavidez III, M.D. Original hard copy report from [facility] is available upon request by calling Pathology at [phone]. Addendum Signed (signature on file) BRYCE Mullen (ASCP) 08/31/12918 FINAL DIAGNOSIS Negative for Intraepithelial lesion or Malignancy COMMENTS: Specimen sent to [facility] in [place], [place] on 08/28/12. Results will be reported separately in an Addendum. A. Ectocervical/Endocervical Specimen Adequacy: CONTINUED ON NEXT PAGE * ML=Testing performed at Main Lab DEPARTMENT OF PATHOLOGY, [facility] [employer] [place], [place] [address] Silvestre Collier M.D. Director [facility] Permit #[id number] RUN DATE: 08/31/12 [facility] LAB LIVE PAGE 2 RUN TIME: [address] [facility] [place], [place] [address] Specimen Inquiry Patient: MADHAVONEIDA [id number] (Continued) CYTOLOGY ADEQ (Continued) Satisfactory of evaluation [...] was evaluated with the assistance of the Mtone Wirelessp Test Imaging System. Due to cytologic findings at the experimental rocket sled mechanic microscope, comprehensive manual rescreening by a Golf Cart Mechanic may be required. The Pap Smear is [...] performed at Main Lab DEPARTMENT OF PATHOLOGY, [address] [place] [address] Silvestre Collier M.D. Director [facility] Permit #[id number] 103 For types 16, 18, 31, 33, 35, 39, 45, 51, 52, 56, 58, 59 and 68. Test Performed by: [facility] - [address] [address] Major Donor Coordinator: Tu Benavidez III, M.D. 104 RUN DATE: 04/18/12 [facility] LAB LIVE PAGE 1 RUN TIME: [address] [place], [place] [address] Specimen Inquiry Name: ONEIDA REESE : [address]: Haylee Cordero MD Acct: [id number] Unit: [id number] AGE: 46 Location: [facility] Re04/17/12 SEX: F Status: REG REF SPEC: [id number] LATASHA: 04/17/12-[address] [facility] [address]: Haylee Cordero MD REQ: [id number] RECD: 04/17/12 STATUS: COMP _ SOURCE: VAGINAL SPDESC: ORDERED: Affirm QUERIES: Medent Number [id number] Procedure Result Verified Site Affirm Vaginal DNA [...] performed at Main Lab DEPARTMENT OF PATHOLOGY, [address] [place] [address] Silvestre Collier M.D. Director [facility] Permit #[id number] 105 Test Performed by: [address] [address] Major Donor Coordinator: Tu Benavidez III, M.D. 106 CHOLESTEROL INTERPRETATION: [...] hemoglobin or beta thalassemia. Test Performed by: [place] [address] Major Donor Coordinator: Tu Benavidez III, M.D. 111 Negative in normal Individuals. May be negative in dermatitis herpatiformis or celiac disease patients adhering to a gluten free diet. Laboratory developed test. Test Performed by: [place] [address] Major Donor Coordinator: Tu Benavidez III, M.D. 112 -- REFERENCE VALUE -- <20.0 (Negative) Test Performed by: [place] [address] Major Donor Coordinator: Tu Benavidez III, M.D. 113 -- REFERENCE VALUE -- <20.0 (Negative) Test Performed by: [place] [address] Major Donor Coordinator: Tu Benavidez III, M.D. 114 Test Performed by: [place] [address] Major Donor Coordinator: Tu Benavidez III, M.D. 115 ----- RUN DATE: 01/06/12 [facility] NMI LIVE PAGE 1 RUN TIME: 838 Specimen Inquiry RUN USER: INTERFACE -- Name: ONEIDA REESE#: [id number] Status: REG REF Re01/02/12 Age/Sex: 46/F Unit#: [id number] Location: [facility]. : [birth year] -- Specimen: [id number] SOUT Spec Date:01/02/12-[address] [facility] [address]: Haylee mclaughlin MD Spec Type: [...] significance (ASC-US) * NOTE Specimen sent to [facility] in [place], [place] on 01/03/12 by DB at 1409. Results will be reported separately in an addendum. Less than 8 mls of fluid left in vial, sample will most likely be quantity not sufficient for HPV testing. ADDENDUM Addendum #1 Entered: 01/06/12-835 HPV DNA High Risk Test Cancelled. Quantity not sufficient. This test was developed and its performance characteristics determined by Laboratory Medicine and Pathology, [place] -- DEPARTMENT OF PATHOLOGY, [address] [place] [address] [facility] Permit #[id number] Shanta Rubalcava M.D. Radio Television Technical Director Dir jo -- -- RUN DATE: 01/06/12 [facility] NMI LIVE PAGE 2 RUN TIME: 0839 Specimen Inquiry RUN USER: INTERFACE -- Name: ONEIDA REESE Status: REG REF Re01/02/12 Age/Sex: 46/F Unit#: [id number] Location: [facility] : 67 -- -- CONTINUED -- ADDENDUM ([place], [place]. It has not been cleared or approved by the U.S. Food and Drug Administration. Test Performed by: [facility] Dpt of lab Med and Pathology [address] [place], [place] [address] Major Donor Coordinator: Tu Benavidez III, M.D. Original hard copy report from [facility] is available upon request by calling Pathology at [phone]. Addendum Review Juan Ramon CORRALES([facility]) 01/06/12 -- This Pap test was evaluated with the assistance of the ThinPrep Pap Test Imaging System. Due to cytologic findings at the experimental rocket sled mechanic microscope, comprehensive manual rescreening by a Golf Cart Mechanic was required. The Pap Smear is a [...] years. Initial evaluation performed by Juan Ramon CORRALES([facility]) 01/03/12 Final Interpretation electronically signed by: QUEENIE LUQUE 01/03/12 1442 -- -- DEPARTMENT OF PATHOLOGY, [address] [place] [address] [facility] Permit #[id number] Silvestre Collier M.D. Director Queenie Luque M.D. Radio Television Technical Director Dir jo -- 116 Anion gap measurement may be of limited value in the presence of any alkalosis, especially in a combined acid base disorder. . 117 A metabolite of Naproxen, O-desmethylnaproxen, has been shown to interfere with the Jenarnieik-Miriam method for measuring total bilirubin. Samples from [...] has been shown to interfere with the Jendrassik-Golconda method for measuring total bilirubin. Samples from [...] RATE CONTROL.* Procedures Date Code Description Status 08/20/2018 [id number] Bone Mineral Density Test Completed 07/27/2018 90828 Inject/Drain Joint/Bursa Major W/O US Completed 03/22/2018 48352 EKG Tracing & Interpretation Completed 01/18/2018 57092 Fluoroscopic Guidance For Cent Completed 01/18/2018 30959 Insertion Tunneled Cent Venous Cathr W Subcut Port 5 Completed Yrs Or Oldr 10/04/2017 50487 ECHO Transthoracic, Real-Time 2D With Doppler And Completed Color Flow 10/04/2017 91638 ECHO Transthoracic, Real-Time 2D With Doppler And Completed Color Flow 09/15/2017 39275 EKG Tracing & Interpretation Completed 08/28/2017 [id number] Mammogram Completed 08/17/2017 [id number] Mammogram Completed 08/11/2017 11791 Moderate Sedation Services; Same Phys Each Additional Completed 15 Mins 08/11/2017 06678 Moderate Sedation Services; Same Phys Intl 15 Mins; PT Completed >=5 Years 08/11/2017 32924 Ultrasound Guidance For Vascular Access Completed 08/11/2017 38964 Vascular Embolization Or Occlu Tumor Organ Ischemia Or Completed Infarction 08/11/2017 68269 Catheter Placement Arterial System Init 3RD Order Completed Abdom/Pelv/Low 08/11/2017 13419 Common Femoral, Bilat Completed 07/13/2017 [id number] Mammogram Completed 03/16/2017 [id number] Colonoscopy Completed 01/13/2017 07786 EKG Tracing & Interpretation Completed 06/08/2016 78828 ECHO Transthoracic, Real-Time 2D With Doppler And Completed Color Flow 06/07/2016 27460 EKG Tracing & Interpretation Completed 05/20/2016 81917962 Mammogram Completed 10/01/2015 19197 Holter Monitor Review (24 hr)dr review & interp only Completed 09/30/2015 60575 ECG Monitor/Recording W/Visual Superimposition Completed Scanning 09/25/2015 72390 EKG Tracing & Interpretation Completed 09/23/2015 46016 ECHO Transthoracic, Real-Time 2D With Doppler And Completed Color Flow 05/07/2015 94782415 Mammogram Completed 11/20/2014 87148 ECG Monitor/Recording W/Visual Superimposition Completed Scanning 11/20/2014 05056 Holter Monitor Review (24 hr)dr review & interp only Completed 11/17/2014 89701 ECG Monitor/Recording W/Visual Superimposition Completed Scanning 11/17/2014 79387 Holter Monitor Review (24 hr)dr review & interp only Completed 11/07/2014 52384 ECHO Transthoracic, Real-Time 2D With Doppler And Completed Color Flow 10/24/2014 97137 EKG Tracing & Interpretation Completed 02/21/2014 68587 ECHO Transthoracic, Real-Time 2D With Doppler And Completed Color Flow 02/07/2014 82376 EKG Tracing & Interpretation Completed 01/23/2013 77609107 Mammogram Completed 01/27/2012 90913 ECHO Transthoracic, Real-Time 2D With Doppler And Completed Color Flow 01/06/2012 21750685 Mammogram Completed 09/28/2011 50381 EKG Tracing & Interpretation Completed Encounters Type Date Location Provider Dx Diagnosis Office Visit 08/14/2018 Jacinto Cordero, Z00.00 Encntr for 9:10a Medicine Kacy Womack general adult [place] medical exam w/o abnormal findings I10 Essential [...] Plantar fascial fibromatosis Office Visit 07/24/2018 1:00p Jacinto Leach I10 Essential (primary ) Medicine Kacy Cordero M.D. hypertension [place] M25.571 Pain in right ankle and joints of right foot M25.569 Pain in unspecified knee D50.0 Iron deficiency anemia secondary to blood loss (chronic) Office Visit 05/02/2018 10:15a Yoni Deshpande D25.9 Leiomyoma of Medicine Of Jacinto Augustine M.D. uterus, unspecified Office Visit 04/17/2018 12:00p [facility] Krystyna Ayala, R30.0 Dysuria [facility] B37.3 Candidiasis of vulva and vagina D25.9 Leiomyoma of uterus, unspecified Office Visit 03/22/2018 [facility] Dalia SSelina I42.9 Cardiomyopathy, 3:30p Cardiology Yemi N.P. 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 leg Office Visit 10/18/2017 2:30p [facility] Jackson Deshpande D25.9 Leiomyoma of Medicine Of Jacinto Augustine M.D. uterus, unspecified M72.2 Plantar fascial fibromatosis M54.5 Low back pain Office Visit 10/12/2017 8:45a Orthopedic Kendall Swan.821 Posterior tibial Services Of Shanta Calhoun tendinitis, right C.M.A. leg Office Visit 09/25/2017 3:40p [facility] Internal Britt Fitch B37.3 Candidiasis of Medicine N.P. 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 uterus, unspecified Office Visit 09/15/2017 2:20p [facility] Qutaybeh S. I10 Essential Maghaydah, (primary) M.D. 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 uterus, Hospitalists unspecified I42.5 Other restrictive cardiomyopathy I10 Essential (primary) hypertension R00.0 Tachycardia, unspecified Office Visit 08/12/2017 3:19p Yoni Deshpande D25.9 Leiomyoma of Medicine Of [facility] Shanta Augustine uterus, unspecified Office Visit 08/11/2017 9:06a [facility] Odette D25.9 Leiomyoma of Assoc,rena Boyd, uterus, Hospitalists ATMOSPHERIC CHEMIST unspecified I42.5 Other restrictive cardiomyopathy I10 Essential (primary) hypertension R00.1 Bradycardia, unspecified Office Visit 04/10/2017 2:30p [facility] Maite Stover M79.672 Pain in left foot Cardiology Of MD Matias, [facility] AT [facility], [facility] Office Visit 03/03/2017 2:30p [facility] M76.821 Posterior tibial Services Of Shanta Calhoun tendamerica, right C.M.A. leg Office Visit 01/31/2017 8:45a Orthopedic [facility] M76.821 Posterior tibial Services Of Shanta Calhoun tendinikevin, right C.M.A. 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 E78.4 Other hyperlipidemia R11.0 Nausea R35.0 Frequency of micturition I10 Essential (primary) hypertension Office Visit 01/13/2017 1:30p [facility] Radha Pearce, G47.00 Insomnia, Of [facility] JACK unspecified I42.9 Cardiomyopathy, unspecified R94.31 Abnormal electrocardiogram [ECG] [EKG] I10 Essential (primary) hypertension Office Visit 10/19/2016 8:30a [facility] Internal Medicine Haylee Cordero, R30.0 Dysuria - Keila Womack N89.8 Other specified noninflammatory disorders of vagina Z11.4 Encounter for screening for human immunodeficiency virus Office Visit 09/14/2016 1:30p [facility] Vascular Osiel Deshpande D25.9 Leiomyoma of Medicine Of Jacinto Augustine M.D. uterus, unspecified Office Visit 08/30/2016 2:40p [facility] Internal Haylee D25.9 Leiomyoma of Medicine Kacy Cordero M.D. uterus, [place] unspecified I10 Essential (primary) hypertension Z12.11 Encounter for screening for malignant neoplasm of colon Office Visit 07/27/2016 2:30p [facility] Internal Zsofia Emiliano, I10 Essential ( primary) Medicine - [place] CAMPUS ADMINISTRATOR hypertension Rd F41.9 Anxiety disorder, unspecified Z13.220 Encounter for screening for lipoid disorders I42.9 Cardiomyopathy, unspecified Office Visit 06/07/2016 Jadyn Tyler I42.9 Cardiomyopathy, 3:00p Cardiology Shanta Alfaro unspecified I10 Essential (primary) hypertension I34.0 Nonrheumatic mitral (valve) insufficiency R94.31 Abnormal electrocardiogram [ECG] [EKG] Office Visit 05/03/2016 9:50a [facility] Internal Haylee I10 Essential (primary ) Jamie Cordero M.D. hypertension [place] F41.9 Anxiety disorder, unspecified D64.9 Anemia, unspecified Z23 Encounter for immunization Office Visit 01/27/2016 1:40p [facility] Internal Hubert Geronimo, Z00.00 Encntr for Medicine - [place] ATMOSPHERIC CHEMIST general adult Rd medical exam w/o abnormal findings Z12.31 Encntr screen mammogram for malignant neoplasm of breast I42.9 Cardiomyopathy, unspecified I10 Essential (primary) hypertension L30.9 Dermatitis, unspecified F43.0 Acute stress reaction J30.9 Allergic rhinitis, unspecified L70.0 Acne vulgaris Office Visit 01/25/2016 [facility] Internal Jamal K57.92 Dvtrcli of intest, 4:00p Medicine - [place] Shanta Palacios part unsp, w/o perf Rd or abscess w/o bleed Office Visit 11/02/2015 JACK Bhandari I49.3 Ventricular 3:30p Cardiology premature depolarization I42.9 Cardiomyopathy, unspecified I10 Essential (primary) hypertension Office Visit 10/02/2015 2:30p Orthopedic Kendall 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, right foot N92.0 Excessive and frequent menstruation with regular cycle Z12.31 Encntr screen mammogram for malignant neoplasm of breast Z23 Encounter for immunization J30.9 Allergic rhinitis, unspecified Office Visit 03/17/2015 11:10a [facility] Internal Haylee R10.30 Lower abdominal Medicine Shanta Cordero pain, unspecified J01.90 Acute sinusitis, unspecified R73.01 Impaired fasting glucose Office Visit 02/23/2015 11:50a [facility] Internal Haylee K64.9 Unspecified Medicine Shanta Cordero hemorrhoids K59.09 Other constipation I10 Essential (primary) hypertension D50.9 Iron deficiency anemia, unspecified K64.0 First degree hemorrhoids Office Visit 02/12/2015 2:30p [facility] Radha Pearce, 425.9 Cardiomyopathy PA Secondary Unspecified 401.9 Hypertension Unspec 272.4 Hyperlipidemia Other Unspec 425.4 Cardiomyopathy Other Prim Office Visit 11/27/2014 9:30a [facility] Radha Pearce, 785.0 Tachycardia Unspec PA 425.9 Cardiomyopathy Secondary Unspecified 401.9 Hypertension Unspec 272.2 Hyperlipidemia Mixed 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 Office Visit 10/24/2014 Jadyn Kesha S. 425.9 Cardiomyopathy 10:20a Cardiology Shanta Alfaro Secondary Unspecified 401.9 Hypertension Unspec 272.2 Hyperlipidemia Mixed 424.0 Mitral Valve Disorder 785.0 Tachycardia Unspec 785.1 Palpitations Office Visit 07/29/2014 2:50p [facility] Internal Haylee Cordero, 300.00 Anxiety State Medicine MJoy Unspec 795.51 Nonspec Reaction To Tuberculin Skin Test W/O Active TB V70.3 Examination Other Medical For Administrative Purpose Office Visit 03/12/2014 3:30p [facility] Radha Pearce, 281.9 Anemia Deficiency PA Unspec 425.9 Cardiomyopathy Secondary Unspecified 401.9 Hypertension Unspec Office Visit 02/07/2014 [facility] Kesha S. 272.2 Hyperlipidemia 3:00p Cardiology Shanta Alfaro Mixed 401.9 Hypertension Unspec 425.9 Cardiomyopathy Secondary Unspecified Office Visit 12/26/2013 1:10p [facility] Internal Haylee V70.0 Examination Medicine Shanta Cordero General Medical Routine AT [facility] 700 Corns & Callosities V76.10 Screening For Malignant Neoplasm Breast 272.2 Hyperlipidemia Mixed 281.9 Anemia Deficiency Unspec Office Visit 11/26/2013 3:10p [facility] Internal Medicine Haylee Cordero, 724.2 Lumbago M.Clarissa 401.9 Hypertension Unspec Office Visit 01/16/2013 10:30a [facility] Internal Haylee Cordero, 128.9 Helminth Medicine M.DSelina Infection Unspec V76.10 Screening For Malignant Neoplasm Breast Office Visit 10/04/2012 2:20p [facility] Amira 401.9 Hypertension Cardiology AT [place], D.O. Unspec [facility] 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 272.4 Hyperlipidemia Other Unspec 285.9 Anemia Unspec Office Visit 09/26/2012 4:10p [facility] Internal Haylee Cordero, 281.9 Anemia Deficiency Medicine M.Clarissa Unspec 272.4 Hyperlipidemia Other Unspec Office Visit 08/27/2012 10:50a [facility] Internal Haylee Cordero, 285.9 Anemia Unspec Medicine MSelinaDSelina 401.9 Hypertension Unspec 795.01 Pap Smear Atypical Squamous Cell Undetermined Sig (Asc-US) 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 Office Visit 04/17/2012 9:50a [facility] Internal Haylee Cordero, 623.5 Leukorrhea Not Medicine Alen.Clarissa Spec as Infective 285.9 Anemia Unspec 401.9 Hypertension Unspec 795.01 Pap Smear Atypical Squamous Cell Undetermined Sig (Asc-US) V04.81 Need For Prophylactic Vaccination & Inoculation/Influenza Office Visit 03/12/2012 Jadyn Collier 674.81 Post 10:20a Cardiology Chelsea Turner. Cardiomyopathy 401.9 Hypertension Unspec Office Visit 01/25/2012 9:50a [facility] Internal Haylee Cordero, 285.9 Anemia Unspec Medicine Shanta 401.9 Hypertension Unspec 309.89 Adjustment Reaction Other Spec 795.01 Pap Smear Atypical Squamous Cell Undetermined Sig (Asc-US) Office Visit 01/02/2012 11:30a [facility] Internal Haylee V72.31 Routine Core Analysis Operator Medicine Shanta Cordero Examination V76.2 Screening Malignant Neoplasm Cervix V77.91 Screening For Lipoid Disorders V76.19 Screening Breast Exam Malignant Neoplasms Other V15.06 Allegy To Insects And Arachnids 285.9 Anemia Unspec V06.1 Bmuqcphmnc-Bzuscbg-Lhekpsss Combined (DTaP) Office Visit 11/28/2011 2:30p [facility] Internal Haylee Cordero, 281.9 Anemia Deficiency Medicine MJoy Unspec 401.9 Hypertension Unspec 425.9 Cardiomyopathy Secondary Unspecified Office Visit 11/18/2011 11:40a [facility] Internal Roya French, 281.9 Anemia Deficiency Medicine M.Clarissa Unspec 780.4 Dizziness & Giddiness 564.09 Constipation Other Office Visit 11/09/2011 9:40a Jadyn Collier 401.1 Hypertension Cardiology Sandra Turner Benign 281.9 Anemia Deficiency Unspec 564.09 Constipation Other 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 Office Visit 09/28/2011 Cascadedori Collier 425.9 Cardiomyopathy 9:40a Cardiology Yue DJosiane. Secondary Unspecified 401.1 Hypertension Benign 281.9 Anemia Deficiency Unspec Office Visit 09/12/2011 10:45a [facility] Internal Haylee 564.09 Constipation Other Medicine Shanta Cordero 465.9 URI Upper Respiratory Infections Acute Unspec Sites Office Visit 09/05/2011 11:30a [facility] Internal Haylee 674.81 Post Medicine Shanta Cordero Cardiomyopathy Office Visit 08/15/2011 10:30a [facility] Internal Haylee 281.9 Anemia Deficiency Medicine Shanta Cordero Unspec 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 555.9 Enteritis Unspec Site Office Visit 07/07/2011 10:00a [facility] Internal Haylee 648.62 Cardiovascular Medicine Shanta Cordero Disease Other Preg Deliv W/ Compl 706.1 Acne Other 300.00 Anxiety State Unspec 623.5 Leukorrhea Not Spec as Infective 281.9 Anemia Deficiency Unspec Plan of Treatment Future Appointment(s):10/19/2018 12:40 pm - Justyn Gabriel M.D. at [facility]09/07/2018 - Justyn Gabriel M.D.M05.79 Rheumatoid arthritis with rheumatoid factor of multiple siteFollow up:Follow up in 4 to 6 weeks or sooner if [id number] Other termite helper (current) drug [id number] Inflammatory polyarthropathyNew Medication:Prednisone 2.5 mg - take 3 tabs daily for 10 days then 2 tabs daily for 10 days then 1 tab daily for10 days then stopD64.9 Anemia , unspecified
[2018-09-23] MEDS ORDERED: hydrALAZINE IV* 20 MG/ML VIAL IV SLOW PU ONE (21:14)
--- NOTE | 2018-09-23 21:14 | ED ---
Complex/Multi-Sys Presentation - HPI Summary HPI Summary: Pt is 53 y/o F accompanied by son, Silverio, presenting to [facility] with complaints of high blood pressure and PATHAK. 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 However, PATHAK has disappeared after taking 5 mg of oxycodone at 1900 today. Pt also complains of high blood pressure RAMP AGENT and also upon arrival and pt measured it to be increasing throughout the day. Patient has home BP machine, first measurement was 150/103, the second measurement was 131/97, the third measurement was 140/95. After eating dinner the pt explains that she felt funny and when she measured her BP once more it was 170/117. She had been taking her regular BP medications to control her BP ( Coreg 25mg bid, amlodipine 2.5mg qd and lisinopril 40mg q am ) as she saw it increasing, but the meds did nothing. Pt denies changes in vision (specifically no tunnels, or dark spots in vision) CP, SOB, no calf pain, abd pain, nausea. Pt presents with a little dizziness. She also reports recent difficulty sleeping, so patient takes trazodone 25 mg. Pt is not on blood thinners. She has FMHx of retinoblastoma (niece <18). She has a Hx of breast cancer (left mastectomy), cardiomyopathy, and CHF. Patient discontinued chemotherapy in April 2018. She denies smoking cigarettes, alcohol usage, substance usage. PCP is Dr. Schafer, oncologist is Dr. King. She is scheduled for a temporal artery biopsy tomorrow for eval for possible giant cell arteritis. On triage, pain is denied. Home medications and allergies are reviewed. Patient is on Tamoxifen 10 mg PO DAILY, trazodone 25 mg PO BEDTIME, prednisone 2.5 mg PO, methotrexate 1 tab PO DAILY, Lisinopril 40 mg PO QAM, carvedilol 25 mg PO BID, amlodipine 2.5 mg QAM. Vitals were pulse 71, o2 98, BP 173/110. - History Of Current Complaint Chief Complaint: EDHypertension Time Seen by Provider: 09/23/18 20:56 Hx Obtained From: Patient Onset/Duration: Sudden Onset, Still Present - high BP, Resolved - PATHAK Timing: Constant Severity Currently: None Severity Initially: Mild Location: Pain At: - back of head, R mu-ism Character: Typical Headache Aggravating Factor(s): nothing Alleviating Factor(s): oxycodone Associated Signs And Symptoms: Positive: Dizziness, Headache, Other - Negative: Vision Issues. Negative: SOB, Chest Pain, Nausea, Abdominal Pain - Allergies/Home Medications Allergies/Adverse Reactions: Allergies Allergy/AdvReac Type Severity Reaction Status Date / Time shrimp Allergy Swelling Verified 04/12/18 09:05 Of Face,Lips,& Throat Home Medications: Home Medications Acetaminophen/Diphenhydramine [Tylenol Pm Ex-Strength Caplet] 1 each PO DAILY [History Confirmed 09/23/18] Methotrexate TAB* 1 tab PO DAILY WITH MEAL 09/23/18 [History Confirmed 09/23/18] Tamoxifen TAB* [Nolvadex*] 10 mg PO DAILY 09/23/18 [History Confirmed 09/23/18] Trazodone HCl 25 mg PO BEDTIME 09/23/18 [History Confirmed 09/23/18] predniSONE [Prednisone 5 MG TAB] 2.5 mg PO DAILY WITH MEAL 09/23/18 [History Confirmed 09/23/18] PMH/Surg Hx/FS Hx/Imm Hx Previously Healthy: No Endocrine/Hematology History: Reports: Hx Anemia Denies: Hx Anticoagulant Therapy, Hx Diabetes, Hx Systemic Lupus Erythematosus, Hx Thyroid Disease Cardiovascular History: Reports: Hx Congestive Heart Failure, Hx Hypertension, Other Cardiovascular Problems/Disorders - post CARDIO MYOPATHY - follows w/ [facility] Denies: Hx Aneurysm, Hx Myocardial Infarction, Hx Pacemaker/ICD Respiratory History: Denies: Hx Asthma, Hx Chronic Obstructive Pulmonary Disease (COPD) History: Reports: Other Problems/Disorders - ovarian cyst hx, uterine fibroids Denies: Hx Dialysis, Hx Renal Disease Musculoskeletal History: Denies: Hx Rheumatoid Arthritis Sensory History: Denies: Hx Contacts or Glasses, Hx Hearing Aid Opthamlomology History: Denies: Hx Contacts or Glasses Neurological History: Reports: Hx Headaches Denies: Hx Dementia, Hx Seizures Psychiatric History: Reports: Hx Anxiety Denies: Hx Panic Disorder - ANXIETY, Hx Substance Abuse - Cancer History Cancer Type, Location and Year: breast Hx Chemotherapy: Yes - pt DC'd in 04/2018 Hx Radiation Therapy: No - Surgical History Surgery Procedure, Year, and Place: Bilateral knee surgeries age 13,. RIGHT FOOT BUNION REPAIR. left mastectomy Hx Anesthesia Reactions: No Infectious Disease History: No Infectious Disease History: Denies: Traveled Outside the [place] in Last 30 Days - Family History Known Family History: Positive: Hypertension, Diabetes, Other Family History: breast CA - Social History Alcohol Use: None Hx Substance Use: No Substance Use Type: Reports: None Hx Tobacco Use: No Smoking Status (MU): Never Smoked Tobacco Have You Smoked in the Last Year: No Review of Systems Constitutional: Other - POSITIVE - DIFFICULTY SLEEPING Eyes: Other - NEGATIVE - CHANGES IN VISION Negative: Blurred Vision ENT: Negative Cardiovascular: Other - POSITIVE - HIGH BP Negative: Chest Pain Negative: Shortness Of Breath Negative: Abdominal Pain, Nausea Positive: no symptoms reported Musculoskeletal: Other - NEGATIVE - CALF PAIN Skin: Negative Neurological: Other - POSITIVE - "A LITTLE" DIZZINESS Positive: Headache Psychological: Normal All Other Systems Reviewed And Are Negative: Yes Physical Exam - Summary Physical Exam Summary: Appearance: Ill-appearing, moderate pain distress, well-nourished, left mastectomy Skin: Warm, color reflects adequate perfusion, dry Head: Normal Head/Face inspection, atraumatic Eyes: Conjunctiva clear ENT: Normal inspection Neck: Supple, no nodes, no JVD Respiratory: Lungs clear, normal breath sounds, no respiratory distress Cardio: RRR, No murmur, pulses normal, brisk capillary refill Abdomen: Soft, nontender Bowel sounds: Present Musculoskeletal: Strength Intact/ROM intact, no calf tenderness, no edema. Psychological: Normal Neuro: Alert, muscle tone normal, no focal deficit Triage Information Reviewed: Yes Vital Signs On Initial Exam: Initial Vitals Temp Pulse Resp BP Pulse Ox 98.0 F 73 17 174/116 98 09/23/18 20:56 09/23/18 20:56 09/23/18 20:56 09/23/18 20:56 09/23/18 20:56 Vital Signs Reviewed: Yes Diagnostics - Vital Signs Vital Signs Temp Pulse Resp BP Pulse Ox 09/23/18 20:56 98.0 F 73 17 174/116 98 - Laboratory Result Diagrams: 09/23/18 21:20 09/23/18 21:20 Lab Statement: Any lab studies that have been ordered have been reviewed, and results considered in the medical decision making process. - EKG 2134 Cardiac Rate: NL - rate of 68 BPM EKG Rhythm: Sinus Rhythm ST Segment: Non-Specific Ectopy: None EKG Comparison: No Significant Change - Compared to 08/14/17, T wave inversions more prominent. Summary of EKG Findings: EKG showed NSR 68, prolonged AVCT, (204), nml IVCT, nml QTc, left axis (-10), non-specific ST, inverted T waves V4-V6, no ectopy. Compared to 08/14/17, T wave inversions more prominent. Re-Evaluation - Re-Evaluation First Eval Re-Evaluation Time: 22:09 Change: Improved Comment: BP is 150/95, pulse 88, still has mild frontal PATHAK, no bi-temporal headache, no chest pain, agreeable with discharge. Complex Multi-Symp Course/Dx Course Of Treatment: Pt is 53 y/o F accompanied by son, Silverio, presenting to [facility] with complaints of high blood pressure and PATHAK. 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 However, PATHAK has disappeared after taking 5 mg of oxycodone at 1900 today. Pt also complains of high blood pressure RAMP AGENT and also upon arrival and pt measured it to be increasing throughout the day. Patient has home BP machine, first measurement was 150/103, the second measurement was 131/97, the third measurement was 140/ 95. After eating dinner the pt explains that she felt funny and when she measured her BP once more it was 170/117. She had been taking her regular BP medications to control her BP as she saw it increasing but it did nothing. Pt denies changes in vision (specifically no tunnels, or dark spots in vision) CP, SOB, no calf pain, abd pain, nausea. Pt presents with a little dizziness. She also reports recent difficulty sleeping, patient takes trazodone 25 mg. Pt is not on blood thinners. She has FMHx of retinoblastoma (niece <18). She has a Hx of breast cancer (left mastectomy), cardiomyopathy, and CHF. Patient discontinued chemotherapy in April 2018. She denies smoking cigarettes, alcohol usage, substance usage. PCP is Dr. Schafer, oncologist is Dr. King. She is scheduled for a temporal artery biopsy tomorrow for giant cell arteritis. On physical exam, left mastectomy is noted and pt is hypertensive, otherwise normal. EKG showed NSR 68, prolonged AVCT, (204), nml IVCT, nml QTc, left axis (-10), non-specific ST, inverted T waves V4-V6, no ectopy. Compared to 08/14/17, T wave inversions more prominent. Labs showed Hgb 11.8, INR 1.14, lactic acid 0.6 (nl), CRP high sens 4.44 (elevated, nl <2), ESR 43 (nl to 29). During ED course, patient received hydralazine 5 mg IV PUSH ED ONCE, ( Hydralazine chosen as pt was relatively bradycardic, so labetalol or metoprolol were not used, but vasodilatory effect of hydralazine may raise pulse, and lower BP, which did occur) Coreg 25 mg PO ONCE was given as this in pt's regularly scheduled night time dose. BP was better controlled to 150/95. 220 - BP is 150/95, pulse 88, still has mild frontal PATHAK, no bi-temporal headache, no chest pain, agreeable with discharge. - Diagnoses Differential Diagnoses/HQI/PQRI: Cardiac Ischemia, CVA, Other - hypertensive urgency Provider Diagnoses: Headache, Hypertension, poor control - Critical Care Time Critical Care Time: 30-74 min - 30 mins for IV medication for HTN control Discharge - Sign-Out/Discharge Documenting (check all that apply): Patient Departure - discharge Patient Received Moderate/Deep Sedation with Procedure: No - Discharge Plan Condition: Stable Disposition: HOME Patient Education Materials: Hypertension (ED) Referrals: Haylee Cordero MD [Primary Care Provider] - 2 Days Additional Instructions: Keep your appointment with Dr. Hammond for the temporal artery biopsy tomorrow. We ke[facility] labs tonight and they will print out with these discharge papers. We gave you your usual Coreg 25mg and we also gave Hydralazine 5mg IV for your elevated blood pressure 170/114. Your blood pressure improved to 150/95 and your headache improved. We also gave your acetaminophen 650mg at 10:15pm. You may take your trazodone as usual tonight. Return to the ER if you have new or worsening symptoms. - Billing Disposition and Condition Condition: STABLE Disposition: Home - Attestation Statements Document Initiated by Scribe: Yes Documenting Scribe: SU BECKWITH AND TEODORA MCCRAY Provider For Whom Scribe is Documenting (Include Credential): HERNESTO LEE MD Scribe Attestation: SU Lee AND TEODORA MCCRAY, scribed for HERNESTO LEE MD on at 0358. Scribe Documentation Reviewed: Yes Provider Attestation: The documentation as recorded by the scribe, SU BECKWITH AND TEODORA MCCRAY accurately reflects the service I personally performed and the decisions made by me, HERNESTO LEE MD Status of Scribe Document: Viewed
[2018-09-23] MEDS ORDERED: Carvedilol TAB* 25 MG PO ONE (21:16)
[2018-09-23 21:34] LABS: ABS Basophils 0 10^3/ul (0-0.2); ABS Eosinophils 0.1 10^3/ul (0-0.6); ABS Monocytes 0.4 10^3/ul (0-0.8); ABS Neutrophils 2.9 10^3/ul (1.5-7.7); ABS Nucleated RBC 0 10^3/ul; Eosinophil % 1.2 %; Hematocrit 35 % (33-41); Hemoglobin 11.8 g/dL (12.0-16.0); Lymphocyte % 23.7 %; Mean Corpuscular HGB Conc 34 g/dL (31-36); Mean Corpuscular Hemoglobin 27 pg (27-31); Mean Corpuscular Volume 81 fL (80-97); Nucleated Red Blood Cells % 0.1; Platelet Count 278 10^3/uL (150-450); Red Blood Count 4.32 10^6 /uL (3.70-4.87); Red Cell Distribution Width 16 % (10.5-15); White Blood Count 4.4 10^3/uL (3.5-10.8)
[2018-09-23 21:42] LABS: Activated Partial Thrombo Time 28.6 seconds (26.0-36.3); INR 1.14 (0.82-1.09)
[2018-09-23 21:49] LABS: Albumin 4.3 g/dL (3.2-5.2); Albumin/Globulin Ratio 1.1 (1-3); BUN/Creatinine Ratio 22.9 (8-20); CRP High Sensitivity 4.44 mg/L (<2.00); Calcium 9.9 mg/dL (8.6-10.3); EGFR African American 106.3 (>60); EGFR Non-African American 87.9 (>60); Globulin 3.8 g/dL (2-4); Potassium 3.5 mmol/L (3.5-5.0); Total Bilirubin 0.4 mg/dL (0.2-1.0); Total Protein 8.1 g/dL (6.4-8.9)
[2018-09-23 21:54] LABS: CKMB ng/mL 3.1 ng/mL (0.6-6.3)
[2018-09-23] MEDS ORDERED: Acetaminophen TAB* 325 MG PO ONE (22:32)
[2018-09-23 22:39] LABS: Erythrocyte Sed Rate 43 mm/Hr (0-29)
[2018-09-23] MEDS ORDERED: Ondansetron INJ* 2 MG/ML VIAL IV PRN (22:47)
[2018-09-23 23:13] VITALS: BP 126/83
== END 2018-09-24 01:09 | disposition home or self-care (01) ==
LOC: ED 20:36
DX: R51 Headache (principal); I10 Essential (primary) hypertension; R42 Dizziness and giddiness; G47.9 Sleep disorder, unspecified; Z85.3 Personal history of malignant neoplasm of breast
CPT/HCPCS: 36415; 80053; 82550; 82553; 83605; 85025; 85610; 85652; 85730; 86141; 93005; 96374; 96375; 99285; A9270-GY; J0360; J2405

== ENCOUNTER 2018-11-03 12:09 | Emergency (ER) | payer OTHER ==
--- NOTE | 2018-11-03 12:30 | ED ---
Throat Pain/Nasal Congestion - HPI Summary HPI Summary: A 53 y/o female presents to [facility] with a chief complaint of sore-throat for the past week. She also c/o palpitations, ear ache, neck pain, difficulty swallowing , and a headache. Temperature of 102.1 noted at triage. At triage she rated her pain as a 6/10 in severity. The patient had breast cancer 4 months ago and had cardiomyopathy as a baby but she claims that her ejection rate improved. - History of Current Complaint Chief Complaint: EDThroatPain Time Seen by Provider: 11/03/18 12:18 Hx Obtained From: Patient Onset/Duration: Sudden Onset, Lasting Days Severity: Moderate Associated Signs And Symptoms: Negative: Wheezing Cough: None - Allergies/Home Medications Allergies/Adverse Reactions: Allergies Allergy/AdvReac Type Severity Reaction Status Date / Time shrimp Allergy Swelling Verified 11/03/18 12:17 Of Face,Lips,& Throat PMH/Surg Hx/FS Hx/Imm Hx Endocrine/Hematology History: Reports: Hx Anemia - Takes Fe Denies: Hx Anticoagulant Therapy, Hx Diabetes, Hx Systemic Lupus Erythematosus, Hx Thyroid Disease Cardiovascular History: Reports: Hx Hypertension, Other Cardiovascular Problems/ Disorders - post CARDIO MYOPATHY - follows w/ [place] Denies: Hx Aneurysm, Hx Myocardial Infarction, Hx Pacemaker/ICD Respiratory History: Denies: Hx Asthma, Hx Chronic Obstructive Pulmonary Disease (COPD) History: Reports: Other Problems/Disorders - ovarian cyst hx, uterine fibroids Denies: Hx Dialysis, Hx Renal Disease Musculoskeletal History: Denies: Hx Rheumatoid Arthritis Sensory History: Denies: Hx Contacts or Glasses, Hx Hearing Aid Opthamlomology History: Denies: Hx Contacts or Glasses Neurological History: Reports: Hx Headaches Denies: Hx Dementia, Hx Seizures Psychiatric History: Reports: Hx Anxiety Denies: Hx Panic Disorder - ANXIETY, Hx Substance Abuse - Cancer History Cancer Type, Location and Year: breast Hx Chemotherapy: No Hx Radiation Therapy: No - Surgical History Surgery Procedure, Year, and Place: Bilateral knee surgeries age 13,. RIGHT FOOT BUNION REPAIR Hx Anesthesia Reactions: No Infectious Disease History: No Infectious Disease History: Denies: Traveled Outside the [place] in Last 30 Days - Family History Known Family History: Positive: Hypertension, Diabetes, Other Family History: breast CA - Social History Alcohol Use: None Hx Substance Use: No Substance Use Type: Reports: None Hx Tobacco Use: No Smoking Status (MU): Never Smoked Tobacco Have You Smoked in the Last Year: No Review of Systems Positive: Fever Positive: Sore Throat, Ear Ache Positive: Palpitations Positive: Other - positive: muscle aches, neck pain Positive: Headache All Other Systems Reviewed And Are Negative: Yes Physical Exam - Summary Physical Exam Summary: Appearance: The patient is well-nourished in no acute distress and in no acute pain. Skin: The skin is warm and dry and skin color reflects adequate perfusion. HEENT: The head is normocephalic and atraumatic. The pupils are equal and reactive. The conjunctivae are clear and without drainage. Nares are patent and without drainage. Mouth reveals moist mucous membranes. Posterior pharynx is erythematous. No lymphadenopathy. The external ears are intact. The ear canals are patent and without drainage. The tympanic membranes are intact. Neck: The neck is supple with full range of motion and non-tender. There are no carotid bruits. There is no neck vein distension. Pos Respiratory: Chest is non-tender. Lungs are clear to auscultation and breath sounds are symmetrical and equal. Cardiovascular: Heart is regular rate and rhythm. There is no murmur or rub auscultated. There is no peripheral edema and pulses are symmetrical and equal. Abdomen: The abdomen is soft and non-tender. There are normal bowel sounds heard in all four quadrants and there is no organomegaly palpated. Musculoskeletal: There is no back tenderness noted. Extremities are non-tender with full range of motion. There is good capillary refill. There is no peripheral edema or calf tenderness elicited. Neurological: Patient is alert and oriented to person, place and time. The patient has symmetrical motor strength in all four extremities. Cranial nerves are grossly intact. Deep tendon reflexes are symmetrical and equal in all four extremities. Psychiatric: The patient has an appropriate affect and does not exhibit any anxiety or depression. Triage Information Reviewed: Yes Vital Signs On Initial Exam: Initial Vitals Temp Pulse Resp BP Pulse Ox 102.1 F 107 18 148/91 99 11/03/18 12:11 11/03/18 12:11 11/03/18 12:11 11/03/18 12:11 11/03/18 12:11 Vital Signs Reviewed: Yes Diagnostics - Vital Signs Vital Signs Temp Pulse Resp BP Pulse Ox 11/03/18 12:11 102.1 F 107 18 148/91 99 - Laboratory Lab Statement: Any lab studies that have been ordered have been reviewed, and results considered in the medical decision making process. Re-Evaluation - Re-Evaluation First Eval Re-Evaluation Time: 13:34 Change: Unchanged Comment: discussed results and plan for DC EENT Course/Dx - Course Course Of Treatment: Ms. Reese presented with a sore throat for a couple of days. She's been having fevers also. She was nontoxic in appearance with stable vitals at aside from some mild tachycardia and fever. Her throat was erythematous but she didn't have any lymphadenopathy. RST was positive and I will treat her with clindamycin as she is taking methotrexate. She was borderline tachycardic and is a little bit immune suppressed because of the methotrexate. I recommended close follow-up and return if she does not feel significantly improved in the next 1-2 days or if she is worsening. - Diagnoses Provider Diagnoses: Strep throat, Pharyngitis Discharge - Sign-Out/Discharge Documenting (check all that apply): Patient Departure - DC Patient Received Moderate/Deep Sedation with Procedure: No - Discharge Plan Condition: Stable Disposition: HOME Prescriptions: Penicillin VK TAB* [Penicillin VK 250 mg Tab*] 500 mg PO QID #28 tab Patient Education Materials: Pharyngitis (ED), Strep Throat (DC) Referrals: Haylee Cordero MD [Primary Care Provider] - (if not improved in 2-3 days) Additional Instructions: Return to the ED if you experience any new or worsening symptoms. - Billing Disposition and Condition Condition: STABLE Disposition: Home - Attestation Statements Document Initiated by [place]: Yes Documenting Scribe: Gt Batista Provider For Whom [place] is Documenting (Include Credential): Simba Faulkner MD Scribe Attestation: I, Gt Batista, scribed for Simba Faulkner MD on 11/03/18 at 1900. Scribe Documentation Reviewed: Yes Provider Attestation: The documentation as recorded by the Gt chatterjee accurately reflects the service I personally performed and the decisions made by me, Simba Faulkner MD Status of Scribe Document: Viewed
[2018-11-03 12:46] LABS: Rapid Strep Molecular POSITIVE (Negative)
--- OUTSIDE RECORDS SUMMARY | 2018-11-03 12:53 | XMS REPORT | Continuity of Care Document ---
:1965 External Reference #:[id number] Author Name Facundo Maldonado, OD Address [address] [place] [address] Care Team Providers Name Role Phone Haylee Cordero MD Care Team Information Second Floor Operator Unavailable Haylee Cordero MD Primary Care Physician Unavailable Payers Date Identification Numbers Payment Provider Subscriber Policy Number: [id number] Ronichan Reese PayID: [id number] [address] [place] [address] Problems Active Problems Provider Date Presbyopia Facundo Vásquez O.D. Onset: 10/29/2014 Retinal lattice degeneration Facundo Vásquez O.D. Onset: 10/29/2014 Keratitis Facundo Vásquez O.D. Onset: 08/12/2014 Essential hypertension Onset: 10/29/2014 Family History Date Family Member(s) Observation Comments General No Current Problems Father Glaucoma Father Diabetes Father H/O: Hypertension Father Heart Failure Father Glasses Mother Diabetes Mother High BP Mother Glasses Social History Type Date Description Comments Sex Unknown ETOH Use Never used alcohol Tobacco Use Start: Unknown Patient has never smoked Smoking Status Reviewed: 10/12/18 Patient has never smoked Allergies, Adverse Reactions, Alerts Active Allergies Reaction Severity Comments Date Shrimp 08/12/2014 Xiidra 07/23/2018 Inactive Allergies NKDA 04/26/2016 Medications Active Medications SIG Qnty Indications Ordering Date Provider Refresh P.M. 1/4" ribbon 3.500gm Facundo Maldonado, 07/23/2018 Ointment applied to OD ocular surface every night at bedtime both eyes Artificial Tears one drop three 15ml Facundo Maldonado, 07/23/2018 1.4% times a day OD Solution both eyes Taxotere Facundo Maldonado, 04/26/2018 20mg/ml Concentrate OD Cyclophosphamide Facundo Maldonado, 04/26/2018 25mg OD Capsules Lisinopril Unknown 20mg Tablets Carvedilol Unknown 25mg Tablets Iron Unknown Tablets Multi Vitamin Daily Unknown Tablets Flonase Allergy Relief spray 1 spray Unknown in each nostril 50mcg/Act Suspension twice daily prn History Medications Restasis 1 drops both 180units Facundo Maldonado, 07/23/2018 - 0.05% Emulsion eyes twice a day OD 07/23/2018 Restasis Multidose 1 drop both eyes 16.5units Facundo Maldonado, 07/23/2018 - 0.05% twice a day OD 10/12/2018 Emulsion Systane Nighttime 4" ribbon 3.500gm Facunod Maldonado, 06/13/2018 - Ointment applied to OD 07/23/2018 ocular surface every night at bedtime both eyes Refresh P.M. 06/01" ribbon 3.500gm Facundochris Maldonado, 06/08/2018 - Ointment applied to OD 07/23/2018 ocular surface every night at bedtime both eyes Xiidra 1gtt both eyes 180units Facundo Maldonado, 06/05/2018 - 5% Solution twice a day OD 06/13/2018 Xiidra 1gtt both eyes 180units Facundo Maldonado, 05/28/2018 - 5% Solution twice a day OD 06/05/2018 Xiidra 1gtt both eyes 180units Facundo Maldonado, 05/03/2018 - 5% Solution twice a day OD 05/28/2018 Restasis Multidose 1 drop both eyes 16.5units Facundo Maldonado, 04/26/2018 - 0.05% twice a day OD 04/26/2018 Emulsion Prednisolone Acetate 1 drop bid Ou x 5ml Facundo Maldonado, 04/26/2018 - 1% 1 week OD 04/26/2018 Suspension Fluorometholone 1gtt bid OU x 2 10ml Facundo Maldonado, 04/26/2018 - 0.1% weeks OD 07/23/2018 Suspension Systane Nighttime Apply 1/4 Inch 3.5units Facundo Maldonado, 04/26/2018 - Ointment Ribbon To Ocular OD 06/08/2018 Surface Of Both Eyes Every Night AT Bedtime Doxycycline Hyclate 1 tab by mouth 14ctorres Howell, 08/09/2017 - 50mg once a day M.D. 04/26/2018 Capsules Doxycycline Hyclate one tab qd x 2 14tabs Bhupendra Howell, 08/04/2017 - 50mg weeks M.D. 08/09/[address] Cabrera Apply 06/01" 3.5units Facundo Maldonado, 08/04/2017 - [id number] Ribbon To Right OD 04/26/2018 Ointment Lower Eye Lid Three Times Daily For 2 Weeks Fluorometholone 1gtt bid OU x 2 10ml Facundo Maldonado, 06/27/2017 - 0.1% weeks OD 08/01/2017 Suspension Artificial Tears one drop three 15ml Facundo Maldonado, 06/27/2017 - 1.4% times a day both OD 04/26/2018 Solution eyes Vital Signs Date Vital Result Comment 10/12/2018 2:50pm Intraocular Pressure Right Eye 15 mmHg Intraocular Pressure Left Eye 15 mmHg 07/23/2018 3:30pm Intraocular Pressure Right Eye 12 mmHg Intraocular Pressure Left Eye 12 mmHg 06/13/2018 11:44am Intraocular Pressure Right Eye 15 mmHg Intraocular Pressure Left Eye 15 mmHg 05/03/2018 3:37pm Intraocular Pressure Right Eye 14 mmHg Intraocular Pressure Left Eye 14 mmHg 08/04/2017 3:50pm Intraocular Pressure Right Eye 10 mmHg Intraocular Pressure Left Eye 10 mmHg 06/27/2017 4:21pm Intraocular Pressure Right Eye 10 mmHg Intraocular Pressure Left Eye 10 mmHg 04/26/2016 3:07pm Intraocular Pressure Right Eye 10 mmHg Intraocular Pressure Left Eye 10 mmHg 10/29/2014 3:27pm Intraocular Pressure Right Eye 11 mmHg Intraocular Pressure Left Eye 11 mmHg Procedures Date Code Description Status 06/27/2017 66356 Ophthalmoscopy Subsequent Completed 06/27/2017 98441 Refraction Completed 06/27/2017 80706 Eye Exam Est Intermediate Completed 04/26/2016 64696 Ophthalmoscopy Subsequent Completed 04/26/2016 62401 Eye Exam Est Intermediate Completed 10/29/2014 65864 Ophthalmoscopy Initial Completed 10/29/2014 14409 Refraction Completed 10/29/2014 24361 Eye Exam Est Comprehensive Completed 08/12/2014 97705 Eye Exam New Intermediate Completed Encounters Type Date Location Provider Dx Diagnosis Office Visit 07/23/2018 Main Office Facundo Maldonado, OD H16.223 Keratoconjunct sicca, 3:15p not specified as Sjogren's, bilateral Office Visit 06/13/2018 Main Office Facundo Maldonado, OD H04.123 Dry eye syndrome of 11:30a bilateral lacrimal glands Office Visit 05/03/2018 Main Office Facundo Maldonado, OD H04.123 Dry eye syndrome of 3:30p bilateral lacrimal glands Office Visit 04/26/2018 Main Office Facundo Maldonado, OD H16.143 Punctate keratitis, 8:30a bilateral Office Visit 08/04/2017 Main Office Facundo Maldonado, OD H16.223 Keratoconjunct sicca, 3:15p not specified as Sjogren's, bilateral H00.12 Chalazion right lower eyelid Office Visit 08/20/2014 2:15p Main Office Facundo Vásquez, 370.9 Keratitis Unspec O.D. Plan of Treatment 10/12/2018 - Facundo Maldonado, ODH00.12 Chalazion right lower [id number] Dry eye syndrome of bilateral lacrimal glandsFollow up:1-2 mos IOP/DFE/photos
[2018-11-03 13:43] VITALS: BP 144/95
== END 2018-11-03 13:46 | disposition home or self-care (01) ==
LOC: ED 12:09
DX: J02.0 Streptococcal pharyngitis (principal); R00.2 Palpitations; D64.9 Anemia, unspecified; Z85.3 Personal history of malignant neoplasm of breast; Z91.013 Allergy to seafood
CPT/HCPCS: 87651; 99282

== ENCOUNTER 2019-02-07 11:19 | Emergency (ER) | payer OTHER ==
[2019-02-07 11:39] VITALS: BP 118/82
--- NOTE | 2019-02-07 12:48 | UC ---
Lower Extremity/Ankle HPI - HPI Summary HPI Summary: 53-year-old woman coming in with a chief complaint of right calf pain. Patient had surgery on her right second toe on January 11, 2019 and has been having intermittent right calf pain since that time. The the pain only lasts 10-30 seconds. No chest pain no shortness breath no history of DVT. The right second toe is improving. She is on tamoxifen. After discussing this with her doctor they recommended getting evaluated for DVT. - History of Current Complaint Chief Complaint: UCLowerExtremity Stated Complaint: R FOOT PAIN Time Seen by Provider: 02/07/19 12:10 Hx Last Menstrual Period: 09/12/2017 Pain Intensity: 8 - Allergies/Home Medications Allergies/Adverse Reactions: Allergies Allergy/AdvReac Type Severity Reaction Status Date / Time shrimp Allergy Severe Swelling Verified 02/07/19 11:39 Of Face,Lips,& Throat PMH/Surg Hx/FS Hx/Imm Hx Previously Healthy: Yes Cancer History: Breast Cancer Other History Of: Negative For: Anticoagulant Therapy - Surgical History Surgical History: Yes Surgery Procedure, Year, and Place: Bilateral knee surgeries age 13,. RIGHT FOOT BUNION REPAIR. Left mastectomy- November 2017 - Family History Known Family History: Positive: Hypertension, Diabetes, Other Family History: breast CA - Social History Alcohol Use: None Substance Use Type: None Smoking Status (MU): Never Smoked Tobacco Have You Smoked in the Last Year: No Review of Systems All Other Systems Reviewed And Are Negative: Yes Constitutional: Positive: Negative Skin: Positive: Negative Eyes: Positive: Negative ENT: Positive: Negative Respiratory: Positive: Negative Cardiovascular: Positive: Negative Gastrointestinal: Positive: Negative Motor: Positive: Negative Neurovascular: Positive: Negative Musculoskeletal: Positive: Other: - SEE HPI Neurological: Positive: Negative Psychological: Positive: Negative Is Patient Immunocompromised?: No Physical Exam Triage Information Reviewed: Yes Appearance: Well-Appearing, No Pain Distress Vital Signs: Initial Vital Signs Temp 97.2 F 02/07/19 11:33 Pulse 74 02/07/19 11:33 Resp 12 02/07/19 11:33 BP 118/82 02/07/19 11:33 Pulse Ox 100 02/07/19 11:33 Vital Signs Reviewed: Yes Eye Exam: Normal Eyes: Positive: Conjunctiva Clear Neck: Positive: Supple Respiratory: Positive: No respiratory distress Musculoskeletal: Positive: Other: - Right second toe does have a dressing on it and her right foot is in a postop shoe. Right calf is nontender to palpation it 's not swollen. On the right side the knee and ankle have full range of motion. Normal capillary refill normal sensation. Neurological: Positive: Alert Psychological: Positive: Age Appropriate Behavior Skin Exam: Normal Lower Extremity Course/Dx - Course Course Of Treatment: Heading Pinner: Jean Pierre Mejia Daniel ([id number]) It Project Coordinator: CHRYSTAL ( CHRYSTAL) Report Date: 02/07/2019 11:46:00 Report Status: Final ====== Start of Report Content Patient Name: TROY COREY Ordering Physician: Bairon Jackson MD Acct.#: [id number] : 1965 Age: 53 Sex: F Location: [facility] Exam Date: 1146 ADM Status: REG ER Order Information: VL LOWER EXT VEINS RIGHT Accession Number: [id number] CPT: 08486 HISTORY: PAIN RT CALF COMPARISONS: None relevant TECHNIQUE: Multiple transverse and longitudinal ultrasound images were obtained of the right lower extremity from the level of the common femoral vein inferiorly through to the infrapopliteal veins using grayscale, color Doppler, and spectral Doppler imaging with and without compression and with augmentation. Comparison images were obtained of the contralateral common femoral vein. FINDINGS: VEINS: The venous system of the right lower extremity is compressible throughout its course, with normal flow on color Doppler imaging and normal response to augmentation on spectral Doppler imaging. SOFT TISSUES: Unremarkable. OTHER FINDINGS: None. IMPRESSION: NO RIGHT LOWER EXTREMITY DEEP VEIN THROMBOSIS <Electronically signed by Jean Pierre Mejia MD in OV> 02/07/193 Dictated By: Jean Pierre Mejia MD Dictated Date/Time: 02/07/191240 Transcribed Date/Time: 02/07/191240 Copy to: CC:Haylee Cordero MD; Bairon Jackson MD Imaging - [facility] Imaging - [facility] Imaging - [facility] [address] [place], [place] [id number] [place] [id number] [place] [id number] ph [phone]) ph ) ph ([phone]) End of Report Content I discussed the venous Doppler results with the patient. The pain in the calf is intermittent. She can use ibuprofen as needed for the pain. I did recommend that if she gets swelling in the calf or this pain persists there is any worsening she needs to get reevaluated right away. - Differential Dx/Diagnosis Provider Diagnosis: Pain of right calf Discharge ED - Sign-Out/Discharge Documenting (check all that apply): Patient Departure All imaging exams completed and their final reports reviewed: Yes - Discharge Plan Condition: Stable Disposition: HOME Patient Education Materials: Leg Pain (ED) Referrals: Haylee Cordero MD [Primary Care Provider] - Additional Instructions: FOLLOW UP WITH YOUR DOCTOR IF NOT COMPLETELY IMPROVED. GET RECHECKED SOONER IF YOUR CONDITION WORSENS; PAIN, SWELLING, FEVER, YOU FEEL ILL, CHEST PAIN, SHORTNESS OF BREATH OR ANY QUESTIONS OR CONCERNS. - Billing Disposition and Condition Condition: STABLE Disposition: Home
== END 2019-02-07 12:59 | disposition home or self-care (01) ==
LOC: UCEAST 11:19
DX: M79.661 Pain in right lower leg (principal); Z80.3 Family history of malignant neoplasm of breast
CPT/HCPCS: 99212; G0463

== ENCOUNTER 2019-03-19 14:31 | Emergency (ER) | payer OTHER ==
[2019-03-19] MEDS ORDERED: Ondansetron INJ* 2 MG/ML VIAL IV ONE (14:50)
[2019-03-19] MEDS ORDERED: NS 0.9% 1000 ML** 1,000 ML IV ONE (14:50)
--- NOTE | 2019-03-19 15:12 | ED ---
HPI Chest Pain - HPI Summary HPI Summary: Pt is a 53 y/o F presenting to the ED with a chief complaint of chest pain initially onset around 1345, lasting a while but not present at 1445. The pain was described as tightness underneath the L breast. She has recent dx of UTI within the last week, and notes abd pain diffusely and N/V/D. She has hx of breast CA with mastectomy. - History of Current Complaint Chief Complaint: EDGeneral Hx Obtained From: Patient Hx Last Menstrual Period: 09/12/2017 Onset/Duration: Started Hours Ago, Resolved Timing: Intermittent, Lasting Minutes Initial Severity: Mild Current Severity: None Pain Intensity: 0 Pain Scale Used: 0-10 Numeric Chest Pain Location: Left Anterior Chest Pain Radiates: No Character: Tightness Aggravating Factor(s): Nothing Alleviating Factor(s): Spontaneous Resolution Associated Signs and Symptoms: Positive: Chest Pain, Nausea, Abdominal Pain, Vomiting - Additional Pertinent History Primary Care Physician: CHRISSIE - Allergy/Home Medications Allergies/Adverse Reactions: Allergies Allergy/AdvReac Type Severity Reaction Status Date / Time shrimp Allergy Severe Swelling Verified 03/19/19 14:49 Of Face,Lips,& Throat Home Medications: Home Medications Carvedilol TAB* [Coreg TAB*] 25 mg PO BID 03/19/19 [History Confirmed 03/19/19] Cholecalciferol (Vitamin D3) [Vitamin D3] 2,000 unit PO DAILY 03/19/19 [History Confirmed 03/19/19] Folic Acid TAB* [Folvite TAB*] 1 mg PO DAILY 03/19/19 [History Confirmed ] Gabapentin CAP(*) [Neurontin 300 CAP(*)] 300 mg PO BEDTIME 03/19/19 [History Confirmed 03/19/19] LoraTADine TAB(NF) [Claritin 10 MG TAB(NF)] 10 mg PO DAILY PRN 03/19/19 [ History Confirmed 03/19/19] Magnesium Oxide TAB* [MagOx 400 TAB*] 400 mg PO BID 03/19/19 [History Confirmed 03/19/19] Methotrexate TAB* 12.5 mg PO FR 03/19/19 [History Confirmed 03/19/19] Tamoxifen TAB* [Nolvadex*] 20 mg PO DAILY 03/19/19 [History Confirmed 03/19/19] Venlafaxine EXT RELEASE CAP* [Effexor Xr CAP*] 37.5 mg PO DAILY 03/19/19 [ History Confirmed 03/19/19] Zolpidem TAB* [Ambien TAB*] 5 mg PO BEDTIME PRN 03/19/19 [History Confirmed ] amLODIPine TAB* [Norvasc 5 mg TAB*] 10 mg PO DAILY 03/19/19 [History Confirmed 03/19/19] predniSONE TAB* [Deltasone TAB*] 5 mg PO DAILY WITH MEAL 03/19/19 [History Confirmed 03/19/19] PMH/Surg Hx/FS Hx/Imm Hx Previously Healthy: Yes Endocrine/Hematology History: Reports: Hx Anemia - Taking iron for Denies: Hx Anticoagulant Therapy, Hx Bone Marrow Disease, Hx Diabetes, Hx Systemic Lupus Erythematosus, Hx Sickle Cell Disease, Hx Thyroid Disease Cardiovascular History: Reports: Hx Hypertension - taking medication for, Other Cardiovascular Problems/Disorders - post CARDIO MYOPATHY - follows w/ [email or web address] Denies: Hx Aneurysm, Hx Angina, Hx Cardiomegaly, Hx Congestive Heart Failure , Hx Coronary Artery Disease, Hx Myocardial Infarction, Hx Pacemaker/ICD, Hx Peripheral Vascular Disease, Hx Rheumatic Fever, Hx Valvular Heart Disease Respiratory History: Denies: Hx Asthma, Hx Chronic Obstructive Pulmonary Disease (COPD), Hx Pulmonary Edema, Hx Pulmonary Embolism, Hx Sleep Apnea, Other Respiratory Problems/Disorders GI History: Denies: Hx Cirrhosis, Hx Crohn's Disease, Hx Gastroesophageal Reflux Disease , Hx Hiatal Hernia, Hx Irritable Bowel, Hx Jaundice, Hx Ulcer, Other GI Disorders History: Reports: Other Problems/Disorders - ovarian cyst hx, uterine fibroids Denies: Hx Dialysis, Hx Kidney Infection, Hx Kidney Stones, Hx Renal Disease Musculoskeletal History: Reports: Hx Rheumatoid Arthritis, Hx Tendonitis - right foot Denies: Hx Bursitis, Other Musculoskeletal History Sensory History: Reports: Hx Contacts or Glasses - wears reading glasses Denies: Hx Cataracts, Hx Glaucoma, Hx Hearing Aid Opthamlomology History: Reports: Hx Contacts or Glasses - wears reading glasses Denies: Hx Cataracts, Hx Glaucoma Neurological History: Denies: Hx Dementia, Hx Headaches, Hx Migraine, Hx Nerve Disease, Hx Seizures , Other Neuro Impairments/Disorders Psychiatric History: Reports: Hx Anxiety - pt not taking medication for Denies: Hx Depression, Hx Panic Disorder - ANXIETY, Hx Substance Abuse - Cancer History Cancer Type, Location and Year: breast Hx Chemotherapy: Yes - Pt had chemo last december 2017, radiation in 2019 Hx Radiation Therapy: No - Surgical History Surgery Procedure, Year, and Place: Bilateral knee surgeries age 13,. RIGHT FOOT BUNION REPAIR. Left mastectomy- November 2017 Hx Anesthesia Reactions: No Infectious Disease History: No Infectious Disease History: Denies: Hx Hepatitis, Traveled Outside the [place] in Last 30 Days - Family History Known Family History: Positive: Hypertension, Diabetes, Other Family History: breast CA - Social History Alcohol Use: None Hx Substance Use: No Substance Use Type: Reports: None Hx Tobacco Use: No Smoking Status (MU): Never Smoked Tobacco Have You Smoked in the Last Year: No Review of Systems Positive: Chest Pain Positive: Abdominal Pain, Vomiting, Diarrhea, Nausea All Other Systems Reviewed And Are Negative: Yes Physical Exam - Summary Physical Exam Summary: Constitutional: Well-developed, Well-nourished, Alert. (-) Distressed Skin: Warm, Dry HENT: Normocephalic; Atraumatic Eyes: Conjunctiva normal Neck: Musculoskeletal ROM normal neck. (-) JVD, (-) Stridor, (-) Tracheal deviation Cardio: Rhythm regular, rate normal, Heart sounds normal; Intact distal pulses; Radial pulses are 2+ and symmetric. (-) Murmur Pulmonary/Chest wall: Effort normal. (-) Respiratory distress, (-) Wheezes, (-) Rales Abd: Soft, (-) tenderness, (-) Distension, (-) Guarding, (-) Rebound Musculoskeletal: (-) Edema Lymph: (-) Cervical adenopathy Neuro: Alert, Oriented x3 Psych: Mood and affect Normal Triage Information Reviewed: Yes Vital Signs On Initial Exam: Initial Vitals Temp Pulse Resp BP Pulse Ox 98.3 F 89 18 145/73 98 03/19/19 14:45 03/19/19 14:45 03/19/19 14:45 03/19/19 14:45 03/19/19 14:45 Vital Signs Reviewed: Yes Procedures - Sedation Patient Received Moderate/Deep Sedation with Procedure: No Diagnostics - Vital Signs Vital Signs Temp Pulse Resp BP Pulse Ox 03/19/19 15:00 20 03/19/19 14:45 98.3 F 89 18 145/73 98 - Laboratory Result Diagrams: 03/19/19 15:12 03/19/19 15:12 Lab Statement: Any lab studies that have been ordered have been reviewed, and results considered in the medical decision making process. - CT Chest/Thorax CTA CT Interpretation Completed By: Radiologist Summary of CT Findings: 1. No evidence of pulmonary embolism. Mild cardiomegaly. 2. No new pulmonary nodularity. 3. Status post modified left mastectomy and left axillar dissection. 4. Linear airspace opacification abutting the pleura in the left upper lobe and non-masslike soft tissue attenuation in the left axilla may be post treatment related. Short-term follow- up imaging would help document the stability of these findings. 5. Several hepatic hypodensities foci, which are too small to characterize, are grossly unchanged from 2018. ED physician has reviewed this report. - EKG 1518 Cardiac Rate: NL - 83bpm EKG Rhythm: Sinus Rhythm ST Segment: Normal Ectopy: None Summary of EKG Findings: EKG at 1518 shows NSR at 83bpm with T-wave inversions in v5 and v6. No change from 09/23/18. ED physician has reviewed and interpreted this report. Chest Pain Course/Dx - Course Course Of Treatment: Patient is here with nonexertional chest pain. Patient is overall well-appearing upon arrival. Patient had negative serial troponins. Patient evidently showed some lateral T-wave inversions but these are not new per chart review. Patient is high risk for blood clots a d-dimer was sent which was positive. Patient had a subsequent negative CTA of her chest. Patient is discharged with PCP follow-up - Diagnoses Provider Diagnoses: Chest pain Discharge ED - Sign-Out/Discharge Documenting (check all that apply): Patient Departure - Discharge Plan Condition: Stable Disposition: HOME Patient Education Materials: Chest Pain (ED) Referrals: Haylee Cordero MD [Primary Care Provider] - Additional Instructions: Follow up with your primary care provider within the next 1-3 days. Return to the emergency department with any new or worsening symptoms, including worsening chest pain or shortness of breath. - Billing Disposition and Condition Condition: STABLE Disposition: Home - Attestation Statements Document Initiated by Scribe: Yes Documenting Scribe: Briana Kaufman Provider For Whom Scribe is Documenting (Include Credential): Zafar Gold MD. Scribe Attestation: I, Briana Kaufman, scribed for Zafar Gold MD. on 03/19/19 at 2111. Scribe Documentation Reviewed: Yes Provider Attestation: The documentation as recorded by the scribe, Briana Kaufman accurately reflects the service I personally performed and the decisions made by me, Zafar Gold MD. Status of Scribe Document: Viewed
[2019-03-19 15:25] LABS: ABS Eosinophils 0.1 10^3/ul (0-0.6); ABS Monocytes 0.3 10^3/ul (0-0.8); ABS Neutrophils 2.6 10^3/ul (1.5-7.7); Eosinophil % 1.8 %; Hematocrit 34 % (35-47); Hemoglobin 11.9 g/dL (12.0-16.0); Lymphocyte % 24.9 %; Mean Corpuscular HGB Conc 35 g/dL (31-36); Mean Corpuscular Hemoglobin 30 pg (27-31); Mean Corpuscular Volume 84 fL (80-97); Mean Platelet Volume 6.6 fL (7.4-10.4); Platelet Count 247 10^3/uL (150-450); Red Blood Count 4.01 10^6 /uL (3.70-4.87); Red Cell Distribution Width 14 % (10-15)
--- OUTSIDE RECORDS SUMMARY | 2019-03-19 15:26 | XMS REPORT | Continuity of Care Document ---
:1965 External Reference #:[id number] Author Name Dalia Bragg N.P. (transmitted by agent of provider Carol Jackson) Address [address] [place] [address] Care Team Providers Name Role Phone Melva Sue M.D. - Family Medicine Care Team Information Roving Frame Tender [phone] Justyn Gabriel MD - Rheumatology Care Team Information Roving Frame Tender Problems Active Problems Provider Date Cardiovascular Disease Other Haylee Cordero M.D. 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 Onset: 2017 breast Note: will undergo mastectomy /sentinel node biopsy Dr. [place] at [facility] T1cNI stage 2 Essential hypertension Amira Turner [...] Rheumatoid arthritis Haylee Cordero M.D. Onset: 08/14/2018 Social History Type Date Description Comments Sex Unknown Tobacco Use Start: Unknown Never Smoked Cigarettes Smoking Status Reviewed: 02/14/19 Never Smoked Cigarettes ETOH Use Never used alcohol Tobacco Use Start: Unknown Patient has never smoked Recreational Drug Use Never Used Drugs Exercise Type/Frequency Does not exercise Allergies, Adverse Reactions, Alerts Active Allergies Reaction Severity Comments Date NKDA 04/15/2015 shrimp Anaphylaxis, Contact dermatitis Severe 07/07/2011 Medications Active Medications SIG Qnty Indications Ordering Date Provider Amlodipine Besylate 1 by mouth every day 30tabs I10 Dalia Bragg, 2018 N.P. 10mg Tablets Gabapentin Bedtime Unknown 01/07/2019 300mg Capsules Zolpidem Tartrate Bedtime Unknown 01/07/2019 5mg Tablets Compazine See Instructions Unknown 01/07/2019 10mg Tablets Magic Mouthwash 15mL swish and spit 200ml Melva Sue MD 11/09/2018 Equal 4x/day as needed [facility] M20 1 by mouth every day 30tabs Dalia Bragg, 10/29/2018 20Meq N.P. Tablets ER Prednisone Take one 90tabs Justyn Gabriel, 10/19/2018 5mg capsule/tablet daily M.D. Tablets by mouth Methotrexate Take 7 90tabs Justyn Gabriel, 10/19/2018 2.5mg capsules/tablets by M.D. Tablets mouth once weekly on Fridays Valacyclovir HCL 1 tablet po bid x 3 30tabs N76.0 Dvorayadira Ayala, 2018 days prn 500mg Tablets exacerbation Vitamin D-3 2 tablets by mouth Haylee Cordero, 08/14/2018 1000Unit daily M.D. Capsules Folic Acid take one 90tabs D64.9 Justyn Gabriel, 08/10/2018 1mg capsule/tablet daily M.D. Tablets by mouth Ibuprofen Q8H 30tabs Unknown 10/05/2017 600mg Tablets Red Yeast Rice Twice Daily Unknown 08/10/2017 Extract 600mg Capsules Fluticasone 1 squirts each 16gm J30.9 Haylee Gil, 04/15/2015 Propionate nostril every day M.D. 50mcg/Act Suspension Ferrous Gluconate take 1 tablet by 60tabs D53.9 Haylee Cordero, 11/28/2011 mouth two times M.D. 324(38Fe) mg Tablets daily Magnesium Oxide Take 1 Tablet By Unknown Mouth Two Times 400(241.3Mg) mg Daily Tablets Lisinopril 1 by mouth every day 90tabs I42.9 Dalia Bragg, 40mg N.P. Tablets I10 Tamoxifen Citrate Take 1 Tablet By Unknown 20mg Mouth Every Day Tablets Carvedilol take 1 tablet by 180tabs I42.9 Qutatobias S. 25mg Tablets mouth twice a day Shanta Alfaro I10 Loratadine once a day for allergies as Unknown 10mg Capsules needed Multivitamins 1 by mouth every day Unknown Capsules History Medications Folic Acid Every Day Unknown 01/07/2019 - 1mg Tablets 02/11/2019 Oxycodone-Acetaminophe Every 8 Hours Unknown 01/07/2019 - n 02/11/2019 5-325mg Tablets Potassium Chloride Every Day Unknown 01/07/2019 - Albertina ER 02/11/2019 20Meq Tablets ER Valacyclovir HCL Every Day Unknown 01/07/2019 - 500mg 02/11/2019 Tablets Cyclobenzaprine HCL take 1 tablet by 5tabs M54.5 Haylee Cordero, 2018 - 5mg mouth daily at M.D. 12/17/2018 Tablets night Mupirocin use on lesion 2x 22gm J34.89 Lupe Cummings, 11/07/2018 - 2% Ointment daily as needed ADON 01/08/2019 [facility] Saline Nasal Addis Rinse nostrils 4x 88ml J34.89 Lupe Cummings, 2018 - daily ADON 02/04/2019 0.65% Solution Magnesium Oxide -MG 1 by mouth twice 180caps aDlia Bragg, 11/06/2018 - Supplement daily N.P. 01/29/2019 400mg Capsules Amlodipine Besylate 1 by mouth every 90tabs Qutaybeh S. 10/19/2018 - 5mg day Mike AlfaroDSelina 02/14/2019 Tablets Amlodipine Besylate 1 by mouth every 90tabs Qutaybeh S. 10/19/2018 - 2.5mg day Alen Alfaro.DSelina 02/14/2019 Tablets Tylenol PM Extra Every Day as Unknown 09/23/2018 - Strength needed 01/29/2019 500-25mg Tablets Methotrexate Sodium Weekly Unknown 09/23/2018 - 2.5mg 02/11/2019 Tablets Tamoxifen Citrate Every Day Unknown 09/23/2018 - 10mg 02/04/2019 Tablets Prednisone take 3 tabs daily 60tabs M06.4 Justyn Gabriel, 09/07/2018 - 2.5mg Tablets for 10 days then M.DSelina 10/19/2018 2 tabs daily for 10 days then 1 tab daily for 10 days then stop Terconazole one applicator 45gm N76.0 Krystyna Ayala, 09/06/2018 - 0.4% Cream per vagina every MD 09/25/2018 night at bedtime x 7 nights Immunizations CPT Code Status Date Vaccine Lot # [id number] Given 08/14/2018 Pneumococcal Conjugate Vaccine 13 Valent For [id number] Intramuscular Use 17780 Given 02/05/2018 Influenza Virus Vaccine, Quadrivalent, Split, Preservative Free 37476 Given 05/03/2016 Influ Virus Vaccine, Quadrivalent, Split Virus, [place] [id number] [address] Given 04/15/2015 Influenza Virus Vaccine, Quadrivalent, Split, [id number] Preservative Free [id number] Given 04/17/2012 Fluvirin Im 3Yrs And Older [id number] 97365 Given 01/02/2012 Tdap - Tetanus/Diptheria/Acellular Pertussis [id number] Vital Signs Date Vital Result Comment 02/14/2019 2:31pm Height 70 inches 5'10" Weight 192.00 lb with shoes Heart Rate 80 /min BP Systolic Sitting 140 mmHg Rue BP Diastolic Sitting 80 mmHg Rue BP Systolic Standing 136 mmHg Rue BP Diastolic Standing 76 mmHg Rue BMI (Body Mass Index) 27.5 kg/m2 Ejection Fraction 40-45% Echo 10/11/18 01/30/2019 4:49pm Height 70 inches 5'10" Weight 184.00 lb Heart Rate 73 /min BP Systolic 140 mmHg BP Diastolic 92 mmHg Body Temperature 97.4 F O2 % BldC Oximetry 100 % BMI (Body Mass Index) 26.4 kg/m2 Results Test Date Facility Test Result H/L Range Note Laboratory test 01/03/2019 [facility] Myeloperoxidase AB <0.2 U [address] [place] [address] [phone] Proteinase 3 <0.2 U 2 Urinalysis Profile 01/03/2019 [facility] Urine Color Yellow [address] [place], [place] [address] [phone] Urine Appearance Cloudy Urine Specific [place] 1.013 Normal 1.010-1.030 Urine pH 8.0 Normal 5-9 Urine Urobilinogen Negative Negative Urine Ketones Negative Negative Urine Protein Negative Negative Urine Leukocytes Negative Negative Urine Blood Negative Negative * * Abnormal Negative 3 Urine Nitrite Negative Negative Urine Bilirubin Negative Negative Urine Glucose Negative Negative Laboratory 11/15/2018 [facility] Gardnerella/Yeast: SEE 4, test [address] Vaginal Dna RESULT 5 [place] [address] BELOW [phone] Laboratory 11/03/2018 [facility] Rapid Strep A POSITIVE Abnormal Negative [address] [place] [address] [phone] Laboratory 11/03/2018 [facility] C Reactive Protein 19.30 High <8.01 7, test [address] mg/L 8 [place] [address] [phone] Erythrocyte Sed Rate 66 mm/Hr High 0-29 9 CBC Auto 11/03/2018 [facility] White Blood 8.1 10^3/uL Normal 3.5-10.[address] Count [place], [place] [id number] [phone] Red Blood Count 3.87 10^6/uL Normal 3.70-4.87 Hemoglobin 10.8 g/dL Low 12.0-16.0 Hematocrit 32 % Low 35-47 Mean Corpuscular Volume 82 fL Normal 80-97 Mean Corpuscular Hemoglobin 28 pg Normal 27-31 Mean Corpuscular HGB Conc 34 g/dL Normal 31-36 Red Cell Distribution Width 16 % High 10-15 Platelet Count 159 10^3/uL Normal 150-450 Mean Platelet Volume 6.3 fL Low 7.4-10.4 Abs Neutrophils 6.6 10^3/uL Normal 1.5-7.7 Abs Lymphocytes 0.5 10^3/uL Low 1.0-4.8 Abs Monocytes 0.9 10^3/uL High 0-0.8 Abs Eosinophils 0.1 10^3/uL Normal 0-0.6 Abs Basophils 0.0 10^3/uL Normal 0-0.2 Abs Nucleated RBC 0.0 10^3/uL Granulocyte % 81.9 % Lymphocyte % 6.4 % Monocyte % 10.6 % Eosinophil % 0.9 % Basophil % 0.2 % Nucleated Red Blood Cells % 0.0 Comp Metabolic 11/03/2018 [facility] Sodium 138 mmol/L Normal 135-[address] [place] [address] [phone] Potassium 3.9 mmol/L Normal 3.5-5.0 Chloride 103 mmol/L Normal 101-111 Co2 Carbon Dioxide 26 mmol/L Normal 22-32 Anion Gap 9 mmol/L Normal 2-11 Glucose 104 mg/dL High 70-100 Blood Urea Nitrogen 16 mg/dL Normal 6-24 Creatinine 0.70 mg/dL Normal 0.51-0.95 BUN/Creatinine Ratio 22.9 High 8-20 Calcium 9.5 mg/dL Normal 8.6-10.3 Total Protein 7.3 g/dL Normal 6.4-8.9 Albumin 4.1 g/dL Normal 3.2-5.2 Globulin 3.2 g/dL Normal 2-4 Albumin/Globulin Ratio 1.3 Normal 1-3 Total Bilirubin 0.40 mg/dL Normal 0.2-1.0 Alkaline Phosphatase 55 U/L Normal 34-104 Alt 20 U/L Normal 7-52 Ast 20 U/L Normal 13-39 Egfr Non- 87.9 >60 Egfr 106.3 >60 10 Laboratory 11/03/2018 [facility] Magnesium 1.6 Low 1.9-2.7 11 , 12 test finding [address] mg/[place] [address] [phone] Laboratory 11/03/2018 N2N/CCD Import Erythrocyte 66 mm/Hr High 0-29 Studies Sedimentation Rate Magnesium Level 1.6 mg/dL Low 1.9-2.7 Total Protein 7.3 g/dL 6.4-8.9 Total Bilirubin 0.40 mg/dL 0.2-1.0 Sodium Level 138 mmol/L 135-145 Potassium Level 3.9 mmol/L 3.5-5.0 Glucose Level 104 mg/dL High 70-100 Globulin 3.2 g/dL 2-4 Estimated GFR (Non- 87.9 Estimated GFR () 106.3 Creatinine 0.70 mg/dL 0.51-0.95 Chloride Level 103 mmol/L 101-111 Carbon Dioxide Level 26 mmol/L 22-32 Calcium Level 9.5 mg/dL 8.6-10.3 C-Reactive Protein 19.30 mg/L High 0-8.00 Blood Urea Nitrogen 16 mg/dL 6-24 BUN/Creatinine Ratio 22.9 High 8-20 Aspartate Amino Transf (Ast/Sgot) 20 U/L 13-39 Anion Gap 9 mmol/L 2-11 Alkaline Phosphatase 55 U/L 34-104 Albumin/Globulin Ratio 1.3 1-3 Albumin 4.1 g/dL 3.2-5.2 Alanine Aminotransferase (Alt/SGPT) 20 U/L 7-52 White Blood Count 8.1 10^3/uL 3.5-10.8 Red Cell Distribution Width 16 % High 10-15 Red Blood Count 3.87 10^6/uL 3.70-4.87 Platelet Count 159 10^3/uL 150-450 Nucleated Red Blood Cells % 0.0 Nucleated RBC Absolute Count (auto) 0.0 10^3/ul Neutrophils (%) (Auto) 81.9 % Monocytes (%) (Auto) 10.6 % Mean Platelet Volume 6.3 fL Low 7.4-10.4 Mean Corpuscular Volume 82 fL 80-97 Mean Corpuscular Hemoglobin Concent 34 g/dL 31-36 Mean Corpuscular Hemoglobin 28 pg 27-31 Lymphocytes (%) (Auto) 6.4 % Hemoglobin 10.8 g/dL Low 12.0-16.0 Hematocrit 32 % Low 35-47 Eosinophils (%) (Auto) 0.9 % Basophils (%) (Auto) 0.2 % Absolute Neutrophils (auto) 6.6 10^3/ul 1.5-7.7 Absolute Monocytes (auto) 0.9 10^3/ul High 0-0.8 Absolute Lymphocytes (auto) 0.5 10^3/ul Low 1.0-4.8 Absolute Eosinophils (auto) 0.1 10^3/ul 0-0.6 Absolute Basophils (auto) 0.0 10^3/ul 0-0.2 Laboratory test 09/25/2018 [facility] Surgical SEE RESULT 13, [address] [place] [address] [phone] Comp Metabolic 09/23/2018 [facility] Sodium 137 mmol/L Normal 135- Panel [address] [place] [address] [phone] Potassium 3.5 mmol/L Normal 3.5-5.0 Chloride 104 mmol/L Normal 101-111 Co2 Carbon Dioxide 25 mmol/L Normal 22-32 Anion Gap 8 mmol/L Normal 2-11 Glucose 119 mg/dL High 70-100 Blood Urea Nitrogen 16 mg/dL Normal 6-24 Creatinine 0.70 mg/dL Normal 0.51-0.95 BUN/Creatinine Ratio 22.9 High 8-20 Calcium 9.9 mg/dL Normal 8.6-10.3 Total Protein 8.1 g/dL Normal 6.4-8.9 Albumin 4.3 g/dL Normal 3.2-5.2 Globulin 3.8 g/dL Normal 2-4 Albumin/Globulin Ratio 1.1 Normal 1-3 Total Bilirubin 0.40 mg/dL Normal 0.2-1.0 Alkaline Phosphatase 41 U/L Normal 34-104 Alt 12 U/L Normal 7-52 Ast 16 U/L Normal 13-39 Egfr Non- 87.9 >60 Egfr 106.3 >60 15 Laboratory test 09/23/2018 [facility] Creatine 98 U/L Normal 10-[address] Kinase(CK) [place] [address] [phone] CRP High Sensitivity 4.44 mg/L High <2.00 CKMB 09/23/2018 [facility] CKMB ng/mL 3.1 ng/mL Normal 0.6- 6.[address] [place] [address] [phone] CBC Auto 09/23/2018 [facility] White Blood 4.4 10^3/uL Normal 3.5-10.[address] [place] [address] [phone] Red Blood Count 4.32 10^6/uL Normal 3.70-4.87 Hemoglobin 11.8 g/dL Low 12.0-16.0 Hematocrit 35 % Normal 33-41 Mean Corpuscular Volume 81 fL Normal 80-97 Mean Corpuscular Hemoglobin 27 pg Normal 27-31 Mean Corpuscular HGB Conc 34 g/dL Normal 31-36 Red Cell Distribution Width 16 % High 10.5-15 Platelet Count 278 10^3/uL Normal 150-450 Mean Platelet Volume 6.0 fL Low 7.4-10.4 Abs Neutrophils 2.9 10^3/uL Normal 1.5-7.7 Abs Lymphocytes 1.0 10^3/uL Normal 1.0-4.8 Abs Monocytes 0.4 10^3/uL Normal 0-0.8 Abs Eosinophils 0.1 10^3/uL Normal 0-0.6 Abs Basophils 0 10^3/uL Normal 0-0.2 Abs Nucleated RBC 0 10^3/uL Granulocyte % 65.0 % Lymphocyte % 23.7 % Monocyte % 9.5 % Eosinophil % 1.2 % Basophil % 0.6 % Nucleated Red Blood Cells % 0.1 Laboratory 09/23/2018 [facility] Erythrocyte Sed 43 mm/Hr High 0-29 test finding [address] [place] [address] [phone] Laboratory 09/23/2018 [facility] Partial Thrombo 28.6 Normal 26.0-36 test finding [address] Time PTT seconds .3 [place] [address] [phone] Lactic Acid 0.6 mmol/L Normal 0.5-2.0 16 Inr/Protime 09/23/2018 [facility] Inr 1.14 High 0.82-1.[address] [place] [address] [phone] Laboratory test 09/07/2018 [facility] Erythrocyte 24 Normal 0- 29 [address] Sed Rate mm/[place] [address] [phone] C Reactive Protein < 1.00 mg/L Normal <8.01 19 Comp Metabolic 09/07/2018 [facility] Sodium 137 mmol/L Normal 135-[address] [place] [address] [phone] Potassium 4.0 mmol/L Normal 3.5-5.0 Chloride 104 mmol/L Normal 101-111 Co2 Carbon Dioxide 28 mmol/L Normal 22-32 Anion Gap 5 mmol/L Normal 2-11 Glucose 97 mg/dL Normal 70-100 Blood Urea Nitrogen 21 mg/dL Normal 6-24 Creatinine 0.67 mg/dL Normal 0.51-0.95 BUN/Creatinine Ratio 31.3 High 8-20 Calcium 9.8 mg/dL Normal 8.6-10.3 Total Protein 7.7 g/dL Normal 6.4-8.9 Albumin 4.3 g/dL Normal 3.2-5.2 Globulin 3.4 g/dL Normal 2-4 Albumin/Globulin Ratio 1.3 Normal 1-3 Total Bilirubin 0.40 mg/dL Normal 0.2-1.0 Alkaline Phosphatase 40 U/L Normal 34-104 Alt 13 U/L Normal 7-52 Ast 16 U/L Normal 13-39 Egfr Non- 92.4 >60 Egfr 111.8 >60 20 CBC Auto 09/07/2018 [facility] White Blood 4.7 10^3/uL Normal 3.5-10.[address] [place] [address] [phone] Red Blood Count 4.19 10^6/uL Normal 3.70-4.87 Hemoglobin 11.5 g/dL Low 12.0-16.0 Hematocrit 34 % Normal 33-41 Mean Corpuscular Volume 82 fL Normal 80-97 Mean Corpuscular Hemoglobin 27 pg Normal 27-31 Mean Corpuscular HGB Conc 34 g/dL Normal 31-36 Red Cell Distribution Width 15 % Normal 10.5-15 Platelet Count 241 10^3/uL Normal 150-450 Mean Platelet Volume 6.6 fL Low 7.4-10.4 Abs Neutrophils 3.7 10^3/uL Normal 1.5-7.7 Abs Lymphocytes 0.6 10^3/uL Low 1.0-4.8 Abs Monocytes 0.3 10^3/uL Normal 0-0.8 Abs Eosinophils 0 10^3/uL Normal 0-0.6 Abs Basophils 0 10^3/uL Normal 0-0.2 Abs Nucleated RBC 0 10^3/uL Granulocyte % 79.4 % Lymphocyte % 13.0 % Monocyte % 6.2 % Eosinophil % 1.0 % Basophil % 0.4 % Nucleated Red Blood Cells % 0 Laboratory 09/06/2018 [facility] Gardnerella/Yeast: SEE RESULT 21 test finding [address] [place] [address] [phone] GC/Chlamydia 09/06/2018 [facility] Chlamydia Negative Negative Amplified Rna [address] [place] [address] [phone] Neisseria gonorrhoeae (GC) Rna Negative Negative Laboratory test 09/06/2018 [facility] Trichomonas Negative Negative [address] Vaginalis Rna [place], [place] [address] [phone] 1 REFERENCE VALUE <0.4 (Negative) Test Performed by: [facility] [place] [address] 2 REFERENCE VALUE <0.4 (Negative) Test Performed by: [facility] [place] [address] 3 *Ascorbic acid is present which may interfere with detection of blood. 4 [id number] 5 SEE RESULT BELOW Name: ONEIDA REESE Dm : [address]: Cierra Mccord NP [employer] Acct: [id number] Unit: [id number] AGE: 53 Location: [facility] Re11/15/18 SEX: F Status: REG REF SPEC: [id number] LATASHA: 11/15/18-1457 [facility] DR: Cierra Mccord [facility] REQ: [id number] RECD: 11/16/18 STATUS: COMP _ SOURCE: VAGINAL SPDESC: ORDERED: Nevaeh,Yeast DNA, Trich DNA COMMENTS: [id number] Would you like to order Trichomonas Vaginalis testing? Yes Procedure Result Reported Site Gardnerella/Yeast: Vaginal DNA Final 11/17/18- 1442 ML Organism 1 Negative Gardnerella Organism 2 Negative Rocío The presence of [...] or failure. Trichomonas: Vaginal DNA Probe Final 11/17/18- 1442 ML Organism 1 Negative Trichomonas CONTINUED ON NEXT PAGE DEPARTMENT OF PATHOLOGY, [address] [place] [address] Silvestre Collier M.D. Director [facility] # [id number] Patient: MADHAVONEIDA [id number] (Continued) Specimen: [id number] Collected: 11/15/18 Received: 11/16/18-141 (Continued) Procedure Result Reported Site Trichomonas: Vaginal DNA Probe Final (continued) 11/17/18- 1442 The presence or absence of T. vaginalis cannot be used as a test for therapeutic success or failure. * ML - Main Lab . END OF REPORT DEPARTMENT OF PATHOLOGY, [address] [place] [address] Silvestre Collier M.D. Director [facility] # [id number] 6 [employer]er Furniture: [id number] Please check labs 2 days before follow up 8 Please check labs 2 days before follow up 9 Please check labs 2 days before follow up 10 Because ethnic data is not always [...] 5 Kidney failure <15 (or dialysis) 11 1 month 12 1 month 13 [id number] 14 SEE RESULT BELOW Name: ONEIDA REESE : [address]: Diego Perea MD Acct: [id number] Unit: [id number] AGE: 53 Location: [facility] Re09/25/18 SEX: F Status: REG REF SPEC: [id number] LATASHA: 09/25/180958 [facility] DR: Diego Perea MD REQ: [id number] RECD: 09/25/18 STATUS: RENATA WATTERS DR: Maite Gabriel MD _ ORDERED: LEVEL 4 COMMENTS: [id number] FINAL DIAGNOSIS Temporal artery, right, biopsy: -- Benign arterial tissue with no significant pathologic abnormalities; see comment. COMMENT: Histologic sections show a segment of muscular artery with an intact internal elastic lamina and no evidence of significant inflammation. Partially treated temporal arteritis may have absent or minimal histologic findings. Clinical-pathologic correlation is recommended. CLINICAL HISTORY No history given. GROSS DESCRIPTION The specimen is received in formalin labeled, Right Temporal Artery Biopsy, and consists of a 2.3 x 0.2 cm white pink tubular soft tissue fragment, which is inked for orientation, serially sectioned and submitted entirely in one cassette. Signed by and Reported on: Kortney Lugo MD 09/26/18 1008 END OF REPORT DEPARTMENT OF PATHOLOGY, [address] [place] [address] Silvestre Collier M.D. Director [facility] # [id number] 15 Because ethnic data is not always readily [...] 15-29 5 Kidney failure <15 (or dialysis) 16 [facility] Severe Sepsis and Septic Shock Management Bundle Measure requires all lactic acids initially measuring >2.0 mmol/L be repeated. 17 Standard intensity warfarin therapeutic range: 2.0-3.0 High intensity warfarin therapeutic range: 2.5-3.5 18 Please check labs today 19 Please check labs today 20 Because ethnic data is not always readily [...] 15-29 5 Kidney failure <15 (or dialysis) 21 SEE RESULT BELOW Name: MADHAVONEIDA : [address]: Krystyna Ayala MD Acct: [id number] Unit: [id number] AGE: 53 Location: [facility] Re09/06/18 SEX: F Status: REG REF SPEC: [id number] LATASHA: 09/06/18-5 [facility] DR: Krystyna Ayala MD REQ: [id number] RECD: 09/06/18184 STATUS: COMP _ SOURCE: VAGINAL SPDESC: ORDERED: Nevaeh,Yeast DNA COMMENTS: [id number] Would you like to order Trichomonas Vaginalis testing? Yes Procedure Result Reported Site Gardnerella/Yeast: Vaginal DNA Final 09/07/18- 1342 ML Organism 1 Negative Gardnerella Organism 2 Negative Rocío The presence of [...] . END OF REPORT DEPARTMENT OF PATHOLOGY, [address] [place] [address] Silvestre Collier M.D. Director [facility] # [id number] 22 [id number] GC/Chlamydia Source?: Endocervical Trichomonas Source: Endocervical Procedures Date Code Description Status 11/04/2018 14211 Holter Monitor Review (24 hr)dr dobson & rohini only Completed 11/01/2018 18493 ECG Monitor/Recording W/Visual Superimposition Completed Scanning 10/11/2018 78281 ECHO Transthoracic, Real-Time 2D With Doppler And Completed Color Flow 10/11/2018 26018 ECHO Transthoracic, Real-Time 2D With Doppler And Completed Color Flow 09/25/2018 59408 Ligation Or Biopsy Temporal Artery Completed 09/11/2018 88654 Removal Tunneled Central Venous Access Dev W/Sub Completed Port/Pump 08/20/2018 [id number] Bone Mineral Density Test Completed 08/28/2017 [id number] Mammogram Completed 08/17/2017 [id number] Mammogram Completed 07/13/2017 [id number] Mammogram Completed 03/16/2017 [id number] Colonoscopy Completed 05/20/2016 [id number] Mammogram Completed 05/07/2015 [id number] Mammogram Completed 01/23/2013 [id number] Mammogram Completed 01/06/2012 [id number] Mammogram Completed Medical Devices Description No Information Available Encounters Type Date Location Provider Dx Diagnosis Office Visit 02/14/2019 [facility] Dalia Bragg, I10 Essential ( primary) 3:00p [facility] hypertension I42.9 Cardiomyopathy, unspecified R00.2 Palpitations Office Visit 01/30/2019 4:20p Rheumatology Justyn Gabriel, M05.79 Rhe[facility] w rheu factor mult site w/o org/sys involv Z79.899 Other alf (current) drug therapy D50.9 Iron deficiency anemia, unspecified Office Visit 01/22/2019 11:00a [facility] Roula Sandoval, N95.1 Menopausal and [facility] female climacteric states N76.0 Acute vaginitis Z85.3 Personal history of malignant neoplasm of breast Z79.899 Other alf (current) drug therapy Office Visit 01/08/2019 1:00p [facility] Internal Haylee Z01.818 Encounter for other Medicine - Shanta Cordero preprocedural Ccmob examination S92.413B Disp fx of prox phalanx of unsp great toe, init for opn fx Z85.3 Personal history of malignant neoplasm of breast I10 Essential (primary) hypertension I42.9 Cardiomyopathy, unspecified D50.9 Iron deficiency anemia, unspecified M05.79 Rheu arthritis w rheu factor mult site w/o org/sys involv Office Visit 12/12/2018 2:00p [facility] Internal Haylee Cordero, R07.0 Pain in throat Medicine - [facility] M54.5 Low back pain Office Visit 12/11/2018 9:30a Orthopedic Kendall M20.41 Other hammer Services Of Shanta Calhoun toe(s) C.M.A. (acquired), right foot Office Visit 11/15/2018 2:30p [facility] Cierra Mccord, N76.0 Acute vaginitis [facility] ADON-Cde Z79.899 Other superintendent container terminal (current) drug therapy Z85.3 Personal history of malignant neoplasm of breast Office Visit 11/07/2018 8:20a [facility] Internal Vinikattydm Greenfieldk, J02.0 Streptococcal Medicine - [facility] pharyngitis Ccmob K13.79 Other lesions of oral mucosa J34.89 Other specified disorders of nose and nasal sinuses M05.79 Rheu arthritis w rheu factor mult site w/o org/sys involv Z79.899 Other superintendent container terminal (current) drug therapy Z79.52 FPC (current) use of systemic steroids Office Visit 10/26/2018 3:30p [facility] Dalia S. I10 Essential ( primary) Foster, N.P. hypertension I42.9 Cardiomyopathy, unspecified Office Visit 10/19/2018 3:40p [facility] Internal Mary Mo, I10 Essential ( primary) Medicine - [facility] hypertension G47.00 Insomnia, unspecified Office Visit 10/19/2018 12:40p Rheumatology Justyn Gabriel, M05.79 Rheu arthritis Services [facility] w rheu factor mult site w/o org/sys involv Z79.899 Other alf (current) drug therapy D64.9 Anemia, unspecified R70.0 Elevated erythrocyte sedimentation rate Office Visit 09/26/2018 3:00p [facility] Qutaybeh S. 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 Z85.3 Personal history of malignant neoplasm of breast Z92.3 Personal history of irradiation Office Visit 09/21/2018 10:00a [facility] - Melva Sue MD R51 Headache Ccmob I10 Essential (primary) hypertension M06.9 Rheumatoid arthritis, unspecified Office Visit 09/07/2018 12:40p Rheumatology Justyn Gabriel, M05.79 [facility] Shanta w melinda factor mult site w/o org/sys involv Z79.899 Other superintendent container terminal (current) drug therapy M06.4 Inflammatory polyarthropathy D64.9 Anemia, unspecified Office Visit 09/06/2018 9:30a [facility] Krystyna Ayala, A60.04 [facility] vulvovaginitis Assessments Date Code Description Provider 02/14/2019 I10 Essential (primary) hypertension Dalia Bragg, N.P. 02/14/2019 I42.9 Cardiomyopathy, unspecified Dalia Bragg, N.P. 02/14/2019 R00.2 Palpitations Dalia Bragg N.P. 01/30/2019 M05.79 Rheumatoid arthritis with rheumatoid Justyn Gabriel M.D. factor of multiple site 01/30/2019 Z79.899 Other alf (current) drug Justyn Gabriel M.D. therapy 01/30/2019 D50.9 Iron deficiency anemia, unspecified Justyn Gabriel M.D. 01/22/2019 N95.1 Menopausal and female climacteric Roula Sandoval N.P. states 01/22/2019 N76.0 Acute vaginitis Roula Sandoval N.P. 01/22/2019 Z85.3 Personal history of malignant Roula Sandoval N.P. 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 therapy 01/08/2019 Z01.818 Encounter for other preprocedural Haylee Cordero M.D. examination 01/08/2019 S92.413B Displaced fracture of proximal Haylee Cordero M.D. phalanx of unspecified great toe, initial encounter for open fracture 01/08/2019 Z85.3 Personal history of malignant Haylee Cordero M.D. neoplasm of breast 01/08/2019 I10 Essential (primary) hypertension Haylee Cordero M.D. 01/08/2019 I42.9 Cardiomyopathy, unspecified Haylee Cordero M.D. 01/08/2019 D50.9 Iron deficiency anemia, unspecified Haylee Cordero M.D. 01/08/2019 M05.79 Rheumatoid arthritis with rheumatoid Haylee Cordero M.D. factor of multiple site 12/12/2018 R07.0 Pain in throat Haylee Cordero M.D. 12/12/2018 M54.5 Low back pain Haylee Crodero M.D. 12/11/2018 M20.41 Other hammer toe(s) (acquired), right Kendall Calhoun M.D. foot 11/15/2018 N76.0 Acute vaginitis MICHAEL ForbesP-Cde 11/15/2018 Z79.899 Other alf (current) drug MICHAEL ForbesP-Cde therapy 11/15/2018 Z85.3 Personal history of malignant MICHAEL ForbesP-Cde neoplasm of breast 11/07/2018 J02.0 Streptococcal pharyngitis Zsofia Emiliano, ADON 11/07/2018 K13.79 Other lesions of oral mucosa Zsofia Emiliano, ADON 11/07/2018 J34.89 Other specified disorders of nose and Zsofia Emiliano, ADON nasal sinuses 11/07/2018 M05.79 Rheumatoid arthritis with rheumatoid Zsofia Emiliano, ADON factor of multiple site 11/07/2018 Z79.899 Other alf (current) drug Zsofia Emiliano, ADON therapy 11/07/2018 Z79.52 FPC (current) use of systemic Zsofia Emiliano, ADON steroids 11/04/2018 R00.2 Palpitations Rivas Watson M.D. 11/01/2018 R00.2 Palpitations Nurse Visit IC 10/26/2018 I10 Essential (primary) hypertension Dalia Bragg, N.P. 10/26/2018 I42.9 Cardiomyopathy, unspecified Dalia Bragg, N.P. 10/19/2018 I10 Essential (primary) hypertension Mary Mo MD 10/19/2018 M05.79 Rheumatoid arthritis with rheumatoid Justyn Gabriel M.D. factor of multiple site 10/19/2018 G47.00 Insomnia, unspecified Mary Mo MD 10/19/2018 Z79.899 Other alf (current) drug Justyn Gabriel M.D. therapy 10/19/2018 D64.9 Anemia, unspecified Justyn Gabriel M.D. 10/19/2018 R70.0 Elevated erythrocyte sedimentation Justyn Gabriel M.D. rate 10/11/2018 I42.9 Cardiomyopathy, unspecified Kesha Alfaro M.D. 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 09/26/2018 Z85.3 Personal history of malignant Kesha Alfaro M.D. neoplasm of breast 09/26/2018 Z92.3 Personal history of irradiation Kesha Alfaro M.D. 09/25/2018 M31.6 Other giant cell arteritis Diego Perea M.D. 09/21/2018 R51 Headache Melva Sue MD 09/21/2018 I10 Essential (primary) hypertension Melva Sue MD 09/21/2018 M06.9 Rheumatoid arthritis, unspecified Melva Sue MD 09/11/2018 C50.912 Malignant neoplasm of unspecified Diego Perea M.D. site of left female breast 09/07/2018 M05.79 Rheumatoid arthritis with rheumatoid Justyn Gabriel M.D. factor of multiple site 09/07/2018 Z79.899 Other alf (current) drug Justyn Gabriel M.D. therapy 09/07/2018 M06.4 Inflammatory polyarthropathy Justyn Gabriel M.D. 09/07/2018 D64.9 Anemia, unspecified Justyn Gabriel M.D. 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 at [facility]05/01/2019 3:20 pm - Justyn Gabriel M.D. at [facility]04/18/2019 3:00 pm - Krystyna Ayala MD at [facility]04/03/2019 8:20 am - YOMAIRA Singh at [facility] - Ccmob02/14/2019 - Dalia Bragg N.P.I10 Essential (primary) hypertensionNew Medication:Amlodipine Besylate 10 mg - 1 by mouth every dayRecommendations: Increase amlodipine to 10mg qD Take BP 1-2x daily 1-2hr after medication.I42.9 Cardiomyopathy, mkfposlljeyM12.2 Palpitations Functional Status Description No Information Available Mental Status Description No Information Available Referrals Refer to Dr Reason for Referral Status Appt Date Rivas Paulino MD Closed 12/27/2018 [address] [place], [place] [id number] [phone] Shannan Hammond MD pt with RA and R sided temporal headache with Sent 2018 tenderness, 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
--- OUTSIDE RECORDS SUMMARY | 2019-03-19 15:26 | XMS REPORT | Continuity of Care Document ---
:1965 External Reference #:[id number] Author Name Haylee Cordero M.D. (transmitted by agent of provider Amairani Nava) Address [address] [facility], [place] [address] Care Team Providers Name Role Phone Melva Sue M.D. - Family Medicine Care Team Information Balance And Hairspring Assembler Justyn Gabriel MD - Rheumatology Care Team Information Balance And Hairspring Assembler Problems Active Problems Provider Date Cardiovascular Disease Other Haylee Cordero M.D. 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 Onset: 2017 breast Note: will undergo mastectomy /sentinel node biopsy Dr. [place] [facility] T1cNI stage 2 Essential hypertension Amira Turner [...] ECHO 1 Onset: 09/23/2015 Uterine leiomyoma Haylee Cordreo M.D. Onset: 08/30/2016 Plantar fascial fibromatosis Osiel Augustine M.D. Onset: 10/18/2017 Low back pain Osiel Augustine M.D. Onset: 10/18/2017 Hypercholesterolemia Haylee Cordero M.D. Onset: 07/31/2018 Rheumatoid arthritis Haylee Cordero M.D. Onset: 08/14/2018 Social History Type Date Description Comments Sex Unknown Tobacco Use Start: Unknown Never Smoked Cigarettes Smoking Status Reviewed: 03/06/19 Never Smoked Cigarettes ETOH Use Never used alcohol Tobacco Use Start: Unknown Patient has never smoked Recreational Drug Use Never Used Drugs Exercise Type/Frequency Does not exercise Allergies, Adverse Reactions, Alerts Active Allergies Reaction Severity Comments Date NKDA 04/15/2015 shrimp Anaphylaxis, Contact dermatitis Severe 07/07/2011 Medications Active Medications SIG Qnty Indications Ordering Date Provider Nitrofurantoin 1 by mouth twice a 14caps N30.00 Haylee Cordero, 03/06/2019 Macrocrystal day X 7 days M.D. 100mg Capsules Venlafaxine HCL once a day 30tabs N95.8 Haylee Cordero, 03/06/2019 37.5mg M.D. Tablets Amlodipine Besylate 1 by mouth every 30tabs I10 Dalia Bragg, 02/14/2019 day N.P. 10mg Tablets Gabapentin Bedtime Unknown 01/07/2019 300mg Capsules Zolpidem Tartrate Bedtime Unknown 01/07/2019 5mg Tablets Compazine See Instructions Unknown 01/07/2019 10mg Tablets Magic Mouthwash 15mL swish and spit 200ml Melva Sue MD 11/09/2018 Equal 4x/day as needed [facility] Klor-Con M20 1 by mouth every 90tabs Dalia Bragg, 10/29/2018 20Meq day N.P. Tablets ER Prednisone Take one 90tabs Justyn Gabriel, 10/19/2018 5mg Tablets capsule/tablet M.D. daily by mouth Methotrexate Take 5 Tablets By 30tabs Justyn Gabriel, 10/19/2018 2.5mg Mouth One Time M.D. Tablets Weekly On Fridays Valacyclovir HCL 1 tablet po bid x 3 30tabs N76.0 Krystyna Ayala, 2018 500mg days prn Tablets exacerbation Vitamin D-3 2 tablets by mouth Haylee Cordero, 08/14/2018 1000Unit daily M.D. Capsules Folic Acid take one 90tabs D64.9 Justyn Gabriel, 08/10/2018 1mg Tablets capsule/tablet M.D. daily by mouth Ibuprofen Q8H 30tabs Unknown 10/05/2017 600mg Tablets Red Yeast Rice Twice Daily Unknown 08/10/2017 Extract 600mg Capsules Fluticasone 1 squirts each 16gm J30.9 Haylee Cordero, 04/15/2015 Propionate nostril every day M.D. 50mcg/Act Suspension Ferrous Gluconate take 1 tablet by 60tabs D53.9 Haylee Cordero, 11/28/2011 mouth two times M.D. 324(38Fe) mg Tablets daily Magnesium Oxide Take 1 Tablet By Unknown Mouth Two Times 400(241.3Mg) mg Daily Tablets Lisinopril 1 by mouth every 90tabs I42.9 Dalia Bragg, 40mg Tablets day N.P. I10 Tamoxifen Citrate Take 1 Tablet By Unknown 20mg Mouth Every Day Tablets Carvedilol take 1 tablet by 180tabs I42.9 Qutaybeh S. 25mg Tablets mouth twice a day [...] 11/07/2018 - 2% Ointment daily as needed DEVELOPMENT AND HOUSING DIRECTOR 01/08/2019 [facility] [place] Rinse nostrils 4x 88ml J34.89 Lupe Cummings, 2018 - daily DEVELOPMENT AND HOUSING DIRECTOR 02/04/2019 0.65% Solution Magnesium Oxide -MG 1 by mouth twice 180caps Dalia RosalesSelina Bragg, 11/06/2018 - Supplement daily N.P. 01/29/2019 400mg Capsules Amlodipine Besylate 1 by mouth every 90tabs Qutaybeh S. 10/19/2018 - 5mg day Shanta Alfaro 02/14/2019 Tablets Amlodipine Besylate 1 by mouth every 90tabs Qutaybeh S. 10/19/2018 - 2.5mg day Shanta Alfaro 02/14/2019 Tablets Tylenol PM Extra Every Day [...] CPT Code Status Date Vaccine Lot # [id number] Given 08/14/2018 Pneumococcal Conjugate Vaccine 13 Valent For [id number] Intramuscular Use 95203 Given 02/05/2018 Influenza Virus Vaccine, Quadrivalent, Split, Preservative Free 34215 Given 05/03/2016 Influ Virus Vaccine, Quadrivalent, Split Virus, [place] [id number] [address] Given 04/15/2015 Influenza Virus Vaccine, Quadrivalent, Split, [id number] Preservative Free [id number] Given 04/17/2012 Fluvirin Im 3Yrs And Older [id number] 87013 Given 01/02/2012 Tdap - Tetanus/Diptheria/Acellular Pertussis [id number] Vital Signs Date Vital Result Comment 03/06/2019 1:51pm Height 70 inches 5'10" Weight 190.00 lb Heart Rate 78 /min BP Systolic Sitting 130 mmHg BP Diastolic Sitting 84 mmHg O2 % BldC Oximetry 100 % BMI (Body Mass Index) 27.3 kg/m2 02/14/2019 2:31pm Height 70 inches 5'10" Weight 192.00 lb with shoes Heart Rate 80 /min BP Systolic Sitting 140 mmHg Rue BP Diastolic Sitting 80 mmHg Rue BP Systolic Standing 136 mmHg Rue BP Diastolic Standing 76 mmHg Rue BMI (Body Mass Index) 27.5 kg/m2 Ejection Fraction 40-45% Echo 10/11/18 Results Test Date Facility Test Result H/L Range Note Laboratory test 01/03/2019 [facility] Myeloperoxidase AB <0.2 U [address] [place] [address] [phone] Proteinase 3 <0.2 U 2 Urinalysis Profile 01/03/2019 [facility] Urine Color Yellow [address] [place] [address] [phone] Urine Appearance Cloudy Urine Specific Triangle 1.013 Normal 1.010-1.030 Urine pH 8.0 Normal 5-9 Urine Urobilinogen Negative Negative Urine Ketones Negative Negative Urine Protein Negative Negative Urine Leukocytes Negative Negative Urine Blood Negative Negative * * Abnormal Negative 3 Urine Nitrite Negative Negative Urine Bilirubin Negative Negative Urine Glucose Negative Negative Laboratory 11/15/2018 [facility] Gardnerella/Yeast: SEE 4, test [address] Vaginal Dna RESULT 5 [place] [address] BELOW [phone] Laboratory 11/03/2018 [facility] Rapid Strep A POSITIVE Abnormal Negative [address] finding [place], [place] [id number] [phone] Laboratory 11/03/2018 [facility] C Reactive Protein 19.30 High <8.01 7, test [address] mg/L 8 [place] [address] [phone] Erythrocyte Sed Rate 66 mm/Hr High 0-29 9 CBC Auto 11/03/2018 [facility] White Blood 8.1 10^3/uL Normal 3.5-10.[address] [place] [address] [phone] Red Blood Count 3.87 10^6/uL Normal 3.70-4.87 [...] Blood Cells % 0.0 Comp Metabolic 11/03/2018 [facility] Sodium 138 mmol/L Normal 135-[address] [place] [address] [phone] Potassium 3.9 mmol/L Normal 3.5-5.0 Chloride 103 [...] >60 Egfr 106.3 >60 10 Laboratory 11/03/2018 [facility] Magnesium 1.6 Low 1.9-2.7 11 , 12 test finding [address] mg/[place] [address] [phone] Laboratory 11/03/2018 N2N/CCD Import Erythrocyte 66 mm/Hr [...] (auto) 0.0 10^3/ul 0-0.2 Laboratory test 09/25/2018 [facility] Surgical SEE RESULT 13, [address] [place] [address] [phone] Comp Metabolic 09/23/2018 [facility] Sodium 137 mmol/L Normal 135- Panel [address] [place] [address] [phone] Potassium 3.5 mmol/L Normal 3.5-5.0 Chloride 104 [...] Egfr 106.3 >60 15 Laboratory test 09/23/2018 [facility] Creatine 98 U/L Normal 10-[address] Kinase(CK) [place] [address] [phone] CRP High Sensitivity 4.44 mg/L High <2.00 CKMB 09/23/2018 [facility] CKMB ng/mL 3.1 ng/mL Normal 0.6- 6.[address] [place] [address] [phone] CBC Auto 09/23/2018 [facility] White Blood 4.4 10^3/uL Normal 3.5-10.[address] Count [place], [place] [address] [phone] Red Blood Count 4.32 10^6/uL Normal 3.70-4.87 [...] Red Blood Cells % 0.1 Laboratory 09/23/2018 [facility] Erythrocyte Sed 43 mm/Hr High 0-29 test finding [address] [place] [address] [phone] Laboratory 09/23/2018 [facility] Partial Thrombo 28.6 Normal 26.0-36 test finding [address] Time PTT seconds .3 [place] [address] [phone] Lactic Acid 0.6 mmol/L Normal 0.5-2.0 16 Inr/Protime 09/23/2018 [facility] Inr 1.14 High 0.82-1.[address] [place] [address] [phone] Laboratory test 09/07/2018 [facility] Erythrocyte 24 Normal 0- 29 [address] Sed Rate mm/[place] [address] [phone] C Reactive Protein < 1.00 mg/L Normal <8.01 19 Comp Metabolic 09/07/2018 [facility] Sodium 137 mmol/L Normal 135-[address] [place] [address] [phone] Potassium 4.0 mmol/L Normal 3.5-5.0 Chloride 104 [...] Egfr 111.8 >60 20 CBC Auto 09/07/2018 [facility] White Blood 4.7 10^3/uL Normal 3.5-10.[address] [place] [address] [phone] Red Blood Count 4.19 10^6/uL Normal 3.70-4.87 [...] Red Blood Cells % 0 Laboratory 09/06/2018 [facility] Gardnerella/Yeast: SEE RESULT 21 test finding [address] [place] [address] [phone] GC/Chlamydia 09/06/2018 [facility] Chlamydia Negative Negative Amplified Rna [address] [place] [address] [phone] Neisseria gonorrhoeae (GC) Rna Negative Negative Laboratory test 09/06/2018 [facility] Trichomonas Negative Negative [address] [address] [phone] 1 REFERENCE VALUE <0.4 (Negative) Test Performed by: [facility] [place] [address] 2 REFERENCE VALUE <0.4 (Negative) Test Performed by: [facility] [place] [address] 3 *Ascorbic acid is present which may interfere with detection of blood. 4 [id number] 5 SEE RESULT BELOW Name: ONEIDA REESE : [address]: Cierra Mccord NP [facility] Acct: [id number] Unit: [id number] AGE: 53 Location: [facility] Re11/15/18 SEX: F Status: REG REF SPEC: [id number] LATASHA: 11/15/18-[address]: Cierra Mccord NP [facility] REQ: [id number] RECD: 11/16/18-1411 STATUS: COMP _ SOURCE: VAGINAL SPDESC: ORDERED: Nevaeh,Yeast DNA, Trich DNA COMMENTS: [id number] Would you like to order Trichomonas Vaginalis [...] CONTINUED ON NEXT PAGE DEPARTMENT OF PATHOLOGY, [address] [place] [address] Silvestre Collier M.D. Director [facility] # [id number] Patient: MADHAVONEIDA Harpreet [id number] (Continued) Specimen: [id number] Collected: 11/15/18 Received: 11/16/18-141 (Continued) Procedure Result Reported Site Trichomonas: Vaginal DNA Probe Final (continued) 11/17/18- 1442 The presence or absence of T. vaginalis cannot be used as a test for therapeutic success or failure. * ML - Main Lab . END OF REPORT DEPARTMENT OF PATHOLOGY, [address] [place] [address] Silvestre Collier M.D. Director [facility] # [id number] 6 Healthcare Architect: [id number] Please check labs 2 days before [...] 11 1 month 12 1 month 13 [id number] 14 SEE RESULT BELOW Name: ONEIDA REESE : [address]: Diego Perea MD Acct: [id number] Unit: [id number] AGE: 53 Location: [facility] Re09/25/18 SEX: F Status: REG REF SPEC: [id number] LATASHA: 09/25/18 [facility] DR: Diego Perea MD REQ: [id number] RECD: 09/25/18 STATUS: RENATA WATTERS DR: Maite Gabriel MD _ ORDERED: LEVEL 4 COMMENTS: [id number] FINAL DIAGNOSIS Temporal artery, right, biopsy: -- [...] 1008 END OF REPORT DEPARTMENT OF PATHOLOGY, [address] [place] [address] Silvestre Collier M.D. Director [facility] # [id number] 15 Because ethnic data is not always [...] 5 Kidney failure <15 (or dialysis) 16 [facility] Severe Sepsis and Septic Shock Management [...] (or dialysis) 21 SEE RESULT BELOW Name: ONEIDA REESE Harpreet : [address]: Krystyna Ayala MD Acct: [id number] Unit: [id number] AGE: 53 Location: [facility] Re09/06/18 SEX: F Status: REG REF SPEC: [id number] LATASHA: 09/06/18-[address]: Krystyna Ayala MD REQ: [id number] RECD: 09/06/18877 STATUS: COMP _ SOURCE: VAGINAL SPDESC: ORDERED: Nevaeh,Yeast DNA COMMENTS: [id number] Would you like to order Trichomonas Vaginalis [...] . END OF REPORT DEPARTMENT OF PATHOLOGY, [address] [place] [address] Silvestre Collier M.D. Director [facility] # [id number] 22 [id number] GC/Chlamydia Source?: Endocervical Trichomonas Source: Endocervical Procedures Date Code Description Status 11/04/2018 50088 Holter Monitor Review (24 hr)dr dobson & interp only Completed 11/01/2018 84530 ECG Monitor/Recording W/Visual Superimposition Completed Scanning 10/11/2018 47716 ECHO Transthoracic, Real-Time 2D With Doppler And Completed Color Flow 10/11/2018 56376 ECHO Transthoracic, Real-Time 2D With Doppler And Completed Color Flow 09/25/2018 01724 Ligation Or Biopsy Temporal Artery Completed 09/11/2018 10475 Removal Tunneled Central Venous Access Dev W/Sub Completed Port/Pump 08/20/2018 [id number] Bone Mineral Density Test Completed 08/28/2017 46786017 Mammogram Completed 08/17/2017 57655832 Mammogram Completed 07/13/2017 36873807 Mammogram Completed 03/16/2017 77205835 Colonoscopy Completed 05/20/2016 06188779 Mammogram Completed 05/07/2015 29819190 Mammogram Completed 01/23/2013 22051764 Mammogram Completed 01/06/2012 93334355 Mammogram Completed Medical Devices Description No Information Available Encounters Type Date Location Provider Dx Diagnosis Office Visit 02/14/2019 [facility] Dalia Bragg, I10 Essential ( primary) 3:00p Of Energy Efficient Site Manager N.P. hypertension I42.9 Cardiomyopathy, unspecified R00.2 Palpitations Office Visit 01/30/2019 4:20p Rheumatology Justyn Gabriel, M05.79 [facility] w rheu factor mult site w/o org/sys involv Z79.899 Other joint terminal attack controller (current) drug therapy D50.9 Iron deficiency anemia, unspecified Office Visit 01/22/2019 11:00a [facility] Roula Sandoval, N95.1 Menopausal and [facility] N.P. female climacteric states N76.0 Acute vaginitis Z85.3 Personal history of malignant neoplasm of breast Z79.899 Other group home (current) drug therapy Office Visit 01/08/2019 1:00p [facility] Internal Haylee Z01.818 Encounter for other Medicine - Shanta Cordero preprocedural Ccmob examination S92.413B Disp fx of prox phalanx of unsp great toe, init for opn fx Z85.3 Personal history of malignant neoplasm of breast I10 Essential (primary) hypertension I42.9 Cardiomyopathy, unspecified D50.9 Iron deficiency anemia, unspecified M05.79 Rheu arthritis w rheu factor mult site w/o org/sys involv Office Visit 12/12/2018 2:00p [facility] Internal Haylee Cordero, R07.0 Pain in throat Medicine - Suad Womack M54.5 Low back pain Office Visit 12/11/2018 9:30a [facility] Kendall M20.41 Other hammer at Carmela Calhoun M.D. toe(s) (acquired), right foot Office Visit 11/15/2018 2:30p [facility] N76.0 Acute vaginitis [facility] YOMAIRA Mccord-Cde Z79.899 Other group home (current) drug therapy Z85.3 Personal history of malignant neoplasm of breast Office Visit 11/07/2018 8:20a [facility] Internal Lupe Cummings, J02.0 Streptococcal Medicine - DEVELOPMENT AND HOUSING DIRECTOR pharyngitis Ccmob K13.79 Other lesions of oral mucosa J34.89 Other specified disorders of nose and nasal sinuses M05.79 Rheu arthritis w rheu factor mult site w/o org/sys involv Z79.899 Other group home (current) drug therapy Z79.52 salvage determiner (current) use of systemic steroids Office Visit 10/26/2018 3:30p [facility] Dalia SSelina I10 Essential ( primary) Foster, N.P. hypertension I42.9 Cardiomyopathy, unspecified Office Visit 10/19/2018 3:40p [facility] Internal Mary Mo, I10 Essential ( [facility] G47.00 Insomnia, unspecified Office Visit 10/19/2018 12:40p Rheumatology Justyn Gabriel, M05.79 [facility] w rheu factor mult site w/o org/sys involv Z79.899 Other joint terminal attack controller (current) drug therapy D64.9 Anemia, unspecified R70.0 Elevated erythrocyte sedimentation rate Office Visit 09/26/2018 3:00p [facility] Qutaybeh S. 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 Z85.3 Personal history of malignant neoplasm of breast Z92.3 Personal history of irradiation Office Visit 09/21/2018 10:00a [facility] Internal Medicine - Melva Sue MD R51 Headache Ccmob I10 Essential (primary) hypertension M06.9 Rheumatoid arthritis, unspecified Office Visit 09/07/2018 12:40p Rheumatology Justyn Gabriel, M05.79 [facility] Shanta w rheu factor mult site w/o org/sys involv Z79.899 Other group home (current) drug therapy M06.4 Inflammatory polyarthropathy D64.9 Anemia, unspecified Office Visit 09/06/2018 9:30a [facility] [address] [employer] [facility] Jamie, A60.04 Herpesviral [facility] vulvovaginitis Assessments Date Code Description Provider 03/06/2019 N30.00 Acute cystitis without hematuria Haylee Cordero M.D. 03/06/2019 M25.512 Pain in left shoulder Haylee Cordero M.D. 03/06/2019 N95.8 Other specified menopausal and Haylee Cordero M.D. perimenopausal disorders 02/14/2019 I10 Essential (primary) hypertension Dalia Bragg N.P. 02/14/2019 I42.9 Cardiomyopathy, unspecified Dalia Bragg N.P. 02/14/2019 R00.2 Palpitations Dalia Bragg N.P. 01/30/2019 M05.79 Rheumatoid arthritis with rheumatoid Justyn Gabriel M.D. factor of multiple site 01/30/2019 Z79.899 Other group home (current) drug Justyn Gabriel M.D. therapy 01/30/2019 D50.9 Iron deficiency anemia, unspecified Justyn Gabriel M.D. 01/22/2019 N95.1 Menopausal and female climacteric Roula Sandoval N.P. states 01/22/2019 N76.0 Acute vaginitis Matrín Francis.P. 01/22/2019 Z85.3 Personal history of malignant Roula Sandoval N.P. neoplasm of breast 01/22/2019 Z79.899 Other group home (current) drug Roula Sandoval N.P. therapy 01/08/2019 Z01.818 Encounter for other [...] M.D. 12/12/2018 M54.5 Low back pain Haylee Cordero M.D. 12/11/2018 M20.41 Other hammer toe(s) (acquired), right Kendall Calhoun M.D. foot 11/15/2018 N76.0 Acute vaginitis YOMAIRA Forbes-Cde 11/15/2018 Z79.899 Other joint terminal attack controller (current) drug YOMAIRA Forbes-Cdpam therapy 11/15/2018 Z85.3 Personal history of malignant YOMAIRA Forbes-Cdpam neoplasm of breast 11/07/2018 J02.0 Streptococcal pharyngitis Viniofia Emiliano, DEVELOPMENT AND HOUSING DIRECTOR 11/07/2018 K13.79 Other lesions of oral mucosa Viniofia Emiliano, DEVELOPMENT AND HOUSING DIRECTOR 11/07/2018 J34.89 Other specified disorders of nose and Zsofia Emiliano, DEVELOPMENT AND HOUSING DIRECTOR nasal sinuses 11/07/2018 M05.79 Rheumatoid arthritis with rheumatoid Zsofia Emiliano, DEVELOPMENT AND HOUSING DIRECTOR factor of multiple site 11/07/2018 Z79.899 Other group home (current) drug Zsofia Emiliano, DEVELOPMENT AND HOUSING DIRECTOR therapy 11/07/2018 Z79.52 group home (current) use of systemic Zsofia Emiliano, DEVELOPMENT AND HOUSING DIRECTOR steroids 11/04/2018 R00.2 Palpitations Rivas Watson M.D. 11/01/2018 R00.2 Palpitations Nurse Visit IC 10/26/2018 I10 Essential (primary) hypertension Dalia Bragg, N.P. 10/26/2018 I42.9 Cardiomyopathy, unspecified Dalia Bragg, N.P. 10/19/2018 I10 Essential (primary) hypertension Mary Mo MD 10/19/2018 M05.79 Rheumatoid arthritis with rheumatoid Justyn Gabriel M.D. factor of multiple site 10/19/2018 G47.00 Insomnia, unspecified Mary Mo MD 10/19/2018 Z79.899 Other group home (current) drug Justyn Gabriel M.D. therapy 10/19/2018 D64.9 Anemia, unspecified Justyn Gabriel M.D. 10/19/2018 R70.0 Elevated erythrocyte sedimentation Jsutyn Gabriel M.D. rate 10/11/2018 I42.9 Cardiomyopathy, unspecified Kesha Alfaro M.D. 10/11/2018 I42.9 Cardiomyopathy, unspecified [facility] 10/11/2018 I10 Essential (primary) hypertension [facility] [place] [facility] Schedule 10/11/2018 O90.3 Peripartum cardiomyopathy [facility] Schedule 09/26/2018 I10 Essential (primary) hypertension [...] factor of multiple site 09/07/2018 Z79.899 Other group home (current) drug Justyn Gabriel M.D. therapy 09/07/2018 M06.4 Inflammatory polyarthropathy Justyn Gabriel M.D. 09/07/2018 D64.9 Anemia, unspecified Justyn Gabriel M.D. 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 at [facility] Internal Medicine - [facility]03/19/2019 3:30 pm - Dalia Bragg N.P. at [facility]05/01/2019 3:20 pm - Justyn Gabriel M.D. at [facility]04/18/2019 3:00 pm - [facility]04/03/2019 8:20 am - YOMAIRA Singh at [facility] Internal Medicine - [facility]03/06/2019 - Haylee Cordero M.D.N30.00 Acute cystitis without hematuriaNew Medication:Nitrofurantoin Macrocrystal 100 mg - 1 by mouth twice a day X 7 daysM25.512 Pain in left alcnhbysM19.8 Other specified menopausal and perimenopausal disordersNew Medication:Venlafaxine HCL 37.5 mg - once a dayFollow up:2 wks Functional Status Description No Information Available Mental Status Description No Information Available Referrals Refer to Dr Reason for Referral Status Appt Date Rivas Paulino MD Closed 12/27/[address] [place] [address] [phone] Shannan Hammond MD pt with RA and R sided temporal headache with Sent 2018 tenderness, 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
--- OUTSIDE RECORDS SUMMARY | 2019-03-19 15:27 | XMS REPORT | Continuity of Care Document ---
:1965 External Reference #:[id number] Author Name Justyn Gabriel M.D. (transmitted by agent of provider Yesika Mccray) Address [address] [place] [id number] Care Team Providers Name Role Phone Melva Sue M.D. - Family Medicine Care Team Information Crew Scheduler [phone] Justyn Gabriel MD - Rheumatology Care Team Information Crew Scheduler Problems Active Problems Provider Date Cardiovascular Disease Other Haylee Cordero M.D. 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 Onset: 2017 breast Note: will undergo mastectomy /sentinel node biopsy [facility] [place] [facility] [place] T1cNI stage 2 Essential hypertension Amira Turner [...] Unknown Never Smoked Cigarettes Smoking Status Reviewed: 01/30/19 Never Smoked Cigarettes ETOH Use Never used alcohol Tobacco Use Start: Unknown Patient has never smoked Recreational Drug Use Never Used Drugs Exercise Type/Frequency Does not exercise Allergies, Adverse Reactions, Alerts Active Allergies Reaction Severity Comments Date NKDA 04/15/2015 shrimp Anaphylaxis, Contact dermatitis Severe 07/07/2011 Medications Active Medications SIG Qnty Indications Ordering Date Provider Sundar Mouthwash 15mL swish and spit 200ml Melva Sue MD 11/09/2018 Equal 4x/day as needed Parts Of Misc [facility] Saline Nasal Rinse nostrils 4x 88ml J34.89 Lupe Cummings, 11/07/2018 [place] daily POLICY ADVISOR 0.65% Solution Klor-Con M20 1 by mouth every day 30tabs Dalia Bragg, 10/29/2018 20Meq N.P. Tablets ER Amlodipine Besylate 1 by mouth every day 90tabs Kesha Tyler 10/19/2018 Shanta Alfaro 5mg Tablets Amlodipine Besylate 1 by mouth every day 30tabs Rivas Longoria 10/19/2018 Shanta [place] 2.5mg Tablets Prednisone Take one 90tabs Justyn Gabriel, 10/19/2018 5mg capsule/tablet daily M.DSelina Tablets by mouth Methotrexate Take 7 90tabs [...] 1mg capsule/tablet daily M.D. Tablets by mouth Red Yeast Rice Twice Daily Unknown 08/10/2017 [...] take 1 tablet by 180tabs I42.9 Qutatobias Tyler 25mg Tablets mouth twice a day Shanta Alfaro I10 Loratadine once a day for allergies as Unknown 10mg Capsules needed Multivitamins 1 by mouth every day Unknown Capsules History Medications Cyclobenzaprine HCL take 1 tablet by 5tabs M54.5 Haylee 12/12/2018 - 5mg mouth daily at Shanta Cordero 12/17/2018 Tablets night Mupirocin use on lesion 2x 22gm J34.89 Lupe Cummings, 11/07/2018 - 2% Ointment daily as needed [facility] 01/08/2019 Magnesium Oxide -MG 1 by mouth twice 180caps Dalia Tyler 11/06/2018 - Supplement daily Yemi, N.P. 01/29/2019 400mg Capsules Tylenol PM Extra Every Day as Unknown 09/23/2018 - Strength needed 01/29/2019 500-25mg Tablets Prednisone take 3 tabs daily 60tabs M06.4 Justyn Gabriel, 09/07/2018 - 2.5mg Tablets for 10 days then M.D. 10/19/2018 2 tabs daily for 10 days then 1 tab daily for 10 days then stop Terconazole one applicator 45gm N76.0 Krystyna Ayala, 09/06/2018 - 0.4% Cream per vagina every MD 09/25/2018 night at bedtime x 7 nights Methotrexate take 5 30tabs R76.0 Justyn Gabriel, 08/10/2018 - 2.5mg capsules/tablets M.D. Unknown Tablets by mouth once weekly on Fridays Prednisone Take one 60tabs M06.4 Justyn Gabriel, 08/10/2018 - 10mg Tablets capsule/tablet M.D. 09/07/2018 daily by mouth Immunizations CPT Code Status Date Vaccine Lot # 66601 Given 08/14/2018 Pneumococcal Conjugate Vaccine 13 Valent For [id number] Intramuscular Use 21051 Given 02/05/2018 Influenza Virus Vaccine, Quadrivalent, Split, Preservative Free 35078 Given 05/03/2016 Influ Virus Vaccine, Quadrivalent, Split Virus, [place] [id number] [address] Given 04/15/2015 Influenza Virus Vaccine, Quadrivalent, Split, [id number] Preservative Free [id number] Given 04/17/2012 Fluvirin Im 3Yrs And Older [id number] 29456 Given 01/02/2012 Tdap - Tetanus/Diptheria/Acellular Pertussis [id number] Vital Signs Date Vital Result Comment 01/30/2019 4:49pm Height 70 inches 5'10" Weight 184.00 lb Heart Rate 73 /min BP Systolic 140 mmHg BP Diastolic 92 mmHg Body Temperature 97.4 F O2 % BldC Oximetry 100 % BMI (Body Mass Index) 26.4 kg/m2 01/22/2019 11:08am Height 70 inches 5'10" Weight 182.00 lb Heart Rate 73 /min BP Systolic 117 mmHg BP Diastolic 79 mmHg O2 % BldC Oximetry 96 % BMI (Body Mass Index) 26.1 kg/m2 Results Test Date Facility Test Result H/L Range Note Laboratory test 01/03/2019 [facility] Myeloperoxidase AB <0.2 U 1 finding [address] [place] [address] [phone] Proteinase 3 <0.2 U 2 Urinalysis Profile 01/03/2019 [facility] Urine Color Yellow [address] [place] [address] [phone] Urine Appearance Cloudy Urine Specific Beattie 1.013 Normal 1.010-1.030 Urine pH 8.0 Normal 5-9 Urine Urobilinogen Negative Negative Urine Ketones Negative Negative Urine Protein Negative Negative Urine Leukocytes Negative Negative Urine Blood Negative Negative * * Abnormal Negative 3 Urine Nitrite Negative Negative Urine Bilirubin Negative Negative Urine Glucose Negative Negative Laboratory 11/15/2018 [facility] Gardnerella/Yeast: SEE 4, test [address] Vaginal Dna RESULT 5 [place] [address] BELOW [phone] Laboratory 11/03/2018 [facility] Rapid Strep A POSITIVE Abnormal Negative [address] [place] [address] [phone] Laboratory 11/03/2018 [facility] C Reactive Protein 19.30 High <8.01 7, test [address] mg/L 8 [place] [address] [phone] Erythrocyte Sed Rate 66 mm/Hr High 0-29 9 CBC Auto 11/03/2018 [facility] White Blood 8.1 10^3/uL Normal 3.5-10.[address] [place] [address] [phone] Red Blood Count 3.87 10^6/uL Normal 3.70-4.87 [...] Blood Cells % 0.0 Comp Metabolic 11/03/2018 [facility] Sodium 138 mmol/L Normal 135-[address] [place] [address] [phone] Potassium 3.9 mmol/L Normal 3.5-5.0 Chloride 103 [...] >60 Egfr 106.3 >60 10 Laboratory 11/03/2018 [facility] Magnesium 1.6 Low 1.9-2.7 11 , 12 test finding [address] mg/dL [place], [place] [address] [phone] Laboratory 11/03/2018 N2N/CCD Import Erythrocyte 66 mm/Hr [...] (auto) 0.0 10^3/ul 0-0.2 Laboratory test 09/25/2018 [facility] Surgical SEE RESULT 13, [address] [place] [address] [phone] Comp Metabolic 09/23/2018 [facility] Sodium 137 mmol/L Normal 135- Panel [address] [place] [address] [phone] Potassium 3.5 mmol/L Normal 3.5-5.0 Chloride 104 [...] Egfr 106.3 >60 15 Laboratory test 09/23/2018 [facility] Creatine 98 U/L Normal 10-[address] Kinase([place]) [place] [address] [phone] CRP High Sensitivity 4.44 mg/L High <2.00 CKMB 09/23/2018 [facility] CKMB ng/mL 3.1 ng/mL Normal 0.6- 6.[address] [place] [address] [phone] CBC Auto 09/23/2018 [facility] White Blood 4.4 10^3/uL Normal 3.5-10.[address] [place] [address] [phone] Red Blood Count 4.32 10^6/uL Normal 3.70-4.87 [...] Red Blood Cells % 0.1 Laboratory 09/23/2018 [facility] Erythrocyte Sed 43 mm/Hr High 0-29 test finding [address] [place] [address] [phone] Laboratory 09/23/2018 [facility] Partial Thrombo 28.6 Normal 26.0-36 test finding [address] Time PTT seconds .3 [place] [address] [phone] Lactic Acid 0.6 mmol/L Normal 0.5-2.0 16 Inr/Protime 09/23/2018 [facility] Inr 1.14 High 0.82-1.[address] [place] [address] [phone] Laboratory test 09/07/2018 [facility] Erythrocyte 24 Normal 0- 29 [address] Sed Rate mm/[place] [address] [phone] C Reactive Protein < 1.00 mg/L Normal <8.01 19 Comp Metabolic 09/07/2018 [facility] Sodium 137 mmol/L Normal 135-[address] [place] [address] [phone] Potassium 4.0 mmol/L Normal 3.5-5.0 Chloride 104 [...] Egfr 111.8 >60 20 CBC Auto 09/07/2018 [facility] White Blood 4.7 10^3/uL Normal 3.5-10.[address] [place] [address] [phone] Red Blood Count 4.19 10^6/uL Normal 3.70-4.87 [...] Red Blood Cells % 0 Laboratory 09/06/2018 [facility] Gardnerella/Yeast: SEE RESULT 21 test finding [address] [place] [address] [phone] GC/Chlamydia 09/06/2018 [facility] Chlamydia Negative Negative Amplified Rna [address] [place] [address] [phone] Neisseria gonorrhoeae (GC) Rna Negative Negative Laboratory test 09/06/2018 [facility] Trichomonas Negative Negative [address] [place] [address] [phone] 1 REFERENCE VALUE <0.4 (Negative) Test Performed by: [facility] [address] [place] [address] 2 REFERENCE VALUE <0.4 (Negative) Test Performed by: [facility] [place] [place] [address] [place] [address] 3 *Ascorbic acid is present which may interfere with detection of blood. 4 [id number] 5 SEE RESULT BELOW Name: ONEIDA REESE : [address]: Cierra Mccord NP, CNM Acct: [id number] Unit: [id number] AGE: 53 Location: [facility] Re11/15/18 SEX: F Status: REG REF SPEC: [id number] LATASHA: 11/15/18-[address] [facility] DR: Cierra Mccord NP, CNM REQ: [id number] RECD: 11/16/18 STATUS: COMP _ SOURCE: VAGINAL SPDESC: ORDERED: Nevaeh,Yeast DNA, Trich DNA COMMENTS: [id number] Would you like to order Trichomonas Vaginalis testing? Yes Procedure Result Reported Site Gardnerella/Yeast: Vaginal DNA Final 11/17/18- 144 ML Organism 1 Negative Gardnerella Organism 2 [...] CONTINUED ON NEXT PAGE DEPARTMENT OF PATHOLOGY, [address] [place] [address] Silvestre Collier M.D. Director [facility] # [id number] Patient: MADHAV,ONEIDA A [id number] (Continued) Specimen: [id number] Collected: 11/15/18 Received: 11/16/18 (Continued) Procedure Result Reported Site Trichomonas: Vaginal DNA Probe Final (continued) 11/17/181441 The presence or absence of T. vaginalis cannot be used as a test for therapeutic success or failure. * - Main Lab . END OF REPORT DEPARTMENT OF PATHOLOGY, [address] [place] [address] Silvestre Collier M.D. Director [facility] # [id number] Recruiting Associate: [id number] Please check labs 2 days before [...] 11 1 month 12 1 month 13 [id number] 14 SEE RESULT BELOW Name: ONEIDA REESE : [address]: Diego Perea MD Acct: [id number] Unit: [id number] AGE: 53 Location: [facility] Re09/25/18 SEX: F Status: REG REF SPEC: [id number] LATASHA: 09/25/18-[address]: Diego Perea MD REQ: [id number] RECD: 09/25/18 STATUS: RENATA WATTERS DR: Maite Gabriel MD _ ORDERED: LEVEL 4 COMMENTS: [id number] FINAL DIAGNOSIS Temporal artery, right, biopsy: -- [...] 1008 END OF REPORT DEPARTMENT OF PATHOLOGY, [address] [place] [address] Silvestre Collier M.D. Director [facility] # [id number] 15 Because ethnic data is not always [...] 5 Kidney failure <15 (or dialysis) 16 [facility] Severe Sepsis and Septic Shock [...] 21 SEE RESULT BELOW Name: ONEIDA REESE : [address]: Krystyna Ayala MD Acct: [id number] Unit: [id number] AGE: 53 Location: [facility] Re09/06/18 SEX: F Status: REG REF SPEC: [id number] LATASHA: 09/06/18-[address]: Krystyna Ayala MD REQ: [id number] RECD: 09/06/18 STATUS: COMP _ SOURCE: VAGINAL SPDESC: ORDERED: Nevaeh,Yeast DNA COMMENTS: [id number] Would you like to order Trichomonas Vaginalis [...] . END OF REPORT DEPARTMENT OF PATHOLOGY, [address] [place] [address] Silvestre Collier M.D. Director [facility] # [id number] 22 [id number] GC/Chlamydia Source?: Endocervical Trichomonas Source: Endocervical Procedures Date Code Description Status 11/04/2018 91643 Holter Monitor Review (24 hr)dr dobson & interp only Completed 11/01/2018 59406 ECG Monitor/Recording W/Visual Superimposition Completed Scanning 10/11/2018 58549 ECHO Transthoracic, Real-Time 2D With Doppler And Completed Color Flow 10/11/2018 81194 ECHO Transthoracic, Real-Time 2D With Doppler And Completed Color Flow 09/25/2018 82292 Ligation Or Biopsy Temporal Artery Completed 09/11/2018 50784 Removal Tunneled Central Venous Access Dev W/Sub Completed Port/Pump 08/20/2018 [id number] Bone Mineral Density Test Completed 08/28/2017 50131242 Mammogram Completed 08/17/2017 [id number] Mammogram Completed 07/13/2017 [id number] Mammogram Completed 03/16/2017 [id number] Colonoscopy Completed 05/20/2016 [id number] Mammogram Completed 05/07/2015 80238202 Mammogram Completed 01/23/2013 47789557 Mammogram Completed 01/06/2012 34824863 Mammogram Completed Medical Devices Description No Information Available Encounters Type Date Location Provider Dx Diagnosis Office Visit 01/08/2019 [facility] Internal Haylee Cordero, Z01.818 Encounter for other 1:00p Medicine - Suad Womack preprocedural examination S92.413B Disp fx of prox phalanx of unsp great toe, init for opn fx Z85.3 Personal history of malignant neoplasm of breast I10 Essential (primary) hypertension I42.9 Cardiomyopathy, unspecified D50.9 Iron deficiency anemia, unspecified M05.79 Rheu arthritis w rheu factor mult site w/o org/sys involv Office Visit 12/12/2018 2:00p [facility] Internal Haylee Cordero, R07.0 Pain in throat Medicine - Suad Womack M54.5 Low back pain Office Visit 12/11/2018 9:30a [facility] M20.41 Other hammer Services Of Shanta Calhoun toe(s) C.M.A. (acquired), right foot Office Visit 11/15/2018 2:30p [facility] Cierra Mccord, N76.0 Acute vaginitis [facility] POLICY ADVISOR-Cde Z79.899 Other sign builder (current) drug therapy Z85.3 Personal history of malignant neoplasm of breast Office Visit 11/07/2018 8:20a [facility] Internal Lupe Cummings, J02.0 Streptococcal Medicine - [facility] pharyngitis Ccmob K13.79 Other lesions of oral mucosa J34.89 Other specified disorders of nose and nasal sinuses M05.79 Rheu arthritis w rheu factor mult site w/o org/sys involv Z79.899 Other sign builder (current) drug therapy Z79.52 nutrition program instructor (current) use of systemic steroids Office Visit 10/26/2018 3:30p [facility] Dalia Tyler I10 Essential ( primary) Yemi, N.P. hypertension I42.9 Cardiomyopathy, unspecified Office Visit 10/19/2018 3:40p [facility] Internal Mary Mo, I10 Essential ( primary[facility] G47.00 Insomnia, unspecified Office Visit 10/19/2018 12:40p Rheumatology Justyn Gabriel M05.79 Rhedorothy arthritis [facility] Shanta w rheu factor [facility] [place] w/o org/sys involv Z79.899 Other sign builder (current) drug therapy D64.9 Anemia, unspecified R70.0 Elevated erythrocyte sedimentation rate Office Visit 09/26/2018 3:00p [facility] Qutaybeh S. 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 Z85.3 Personal history of malignant neoplasm of breast Z92.3 Personal history of irradiation Office Visit 09/21/2018 10:00a [facility] Internal Medicine - Melva Sue MD R51 Headache Ccmob I10 Essential (primary) hypertension M06.9 Rheumatoid arthritis, unspecified Office Visit 09/07/2018 12:40p Rheumatology Justyn Gabriel M05.79 Rheu arthritis [facility] Shanta w rheu factor [facility] [place] w/o org/sys involv Z79.899 Other sign builder (current) drug therapy M06.4 Inflammatory polyarthropathy D64.9 Anemia, unspecified Office Visit 09/06/2018 9:30a [facility] Dvorah A60.04 Herpesviral [facility] MD Jamie vulvovaginitis Office Visit 08/14/2018 9:10a DoNotUse [facility] Haylee Z00.00 Encntr for general Internal Shanta Cordero adult medical exam Medicine-[facility] w/o abnormal ood findings I10 Essential (primary) hypertension Z23 Encounter for immunization L84 Corns and callosities Office Visit 08/10/2018 10:40a Rheumatology Justyn Gabriel M05.79 Rhedorothy arthritis [facility] Shanta w rheu factor [facility] [place] w/o org/sys involv R76.0 Raised antibody titer D64.9 Anemia, unspecified M25.561 Pain in right knee M15.0 Primary generalized (osteo)arthritis Assessments Date Code Description Provider 01/30/2019 M05.79 Rheumatoid arthritis with rheumatoid Justyn Gabriel M.D. factor of [facility] site 01/30/2019 Z79.899 Other care home (current) drug Justyn Gabriel M.D. therapy 01/30/2019 D50.9 Iron deficiency anemia, unspecified Justyn Gabriel M.D. 01/22/2019 N95.1 Menopausal and female climacteric Roula Sandoval, N.P. states 01/22/2019 N76.0 Acute vaginitis Roula Sandoval N.Sandhya. 01/08/2019 Z01.818 Encounter for other preprocedural Haylee Cordero M.D. examination 01/08/2019 S92.413B Displaced fracture of proximal Haylee Cordero M.D. phalanx of unspecified great toe, initial encounter for open fracture 01/08/2019 Z85.3 Personal history of malignant Haylee Cordero M.D. neoplasm of breast 01/08/2019 I10 Essential (primary) hypertension Haylee Cordero M.D. 01/08/2019 I42.9 Cardiomyopathy, lanaified Haylee Cordero M.D. 01/08/2019 D50.9 Iron deficiency anemia, maximino Cordero M.D. 01/08/2019 M05.79 Rheumatoid arthritis with rheumatoid Haylee Cordero M.D. factor of multiple site 12/12/2018 R07.0 Pain in throat Haylee Cordero M.D. 12/12/2018 M54.5 Low back pain Haylee Cordero M.D. 12/11/2018 M20.41 Other hammer toe(s) (acquired), right Kendall Calhoun M.D. foot 11/15/2018 N76.0 Acute vaginitis YOMAIRA Forbes-Cde 11/15/2018 Z79.899 Other care home (current) drug YOMAIRA Forbes-Cdpam therapy 11/15/2018 Z85.3 Personal history of malignant YOMAIRA Forbes-Gary neoplasm of breast 11/07/2018 J02.0 Streptococcal pharyngitis ViniofiMICHAEL SandovalP 11/07/2018 K13.79 Other lesions of oral mucosa YOMAIRA Singh 11/07/2018 J34.89 Other specified disorders of nose and Zsofidm Cummings POLICY ADVISOR nasal sinuses 11/07/2018 M05.79 Rheumatoid arthritis with rheumatoid Lupe Cummings POLICY ADVISOR factor of multiple site 11/07/2018 Z79.899 Other sign builder (current) drug Viniofia Emiliano, POLICY ADVISOR therapy 11/07/2018 Z79.52 nutrition program instructor (current) use of systemic Zsofia Emiliano, POLICY ADVISOR steroids 11/04/2018 R00.2 Palpitations Rivas [place] M.D. 11/01/2018 R00.2 Palpitations Nurse Visit IC 10/26/2018 I10 Essential (primary) hypertension Dalia Bragg, N.P. 10/26/2018 I42.9 Cardiomyopathy, unspecified Dalia Bragg, N.P. 10/19/2018 I10 Essential (primary) hypertension Mary Mo MD 10/19/2018 M05.79 Rheumatoid arthritis with rheumatoid Justyn Gabriel M.D. factor of multiple site 10/19/2018 Z79.899 Other care home (current) drug Justyn Gabriel M.D. therapy 10/19/2018 G47.00 Insomnia, unspecified Mary Mo MD 10/19/2018 D64.9 Anemia, unspecified Justyn Gabriel M.D. 10/19/2018 R70.0 Elevated erythrocyte sedimentation Justyn Gabriel M.D. rate 10/11/2018 I42.9 Cardiomyopathy, unspecified Kesha Alfaro M.D. 10/11/2018 I42.9 Cardiomyopathy, unspecified [facility] Schedule 10/11/2018 I10 Essential (primary) hypertension [facility] Schedule 10/11/2018 O90.3 Peripartum cardiomyopathy [facility] Schedule 09/26/2018 I10 Essential (primary) hypertension Kesha Alfaro M.D. 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 09/26/2018 Z85.3 Personal history of malignant Kesha Alfaor M.D. neoplasm of breast 09/26/2018 Z92.3 Personal [...] factor of multiple site 09/07/2018 Z79.899 Other care home (current) drug Justyn Gabriel M.D. therapy 09/07/2018 M06.4 Inflammatory polyarthropathy Justyn Gabriel M.D. 09/07/2018 D64.9 Anemia, unspecified Justyn Gabriel M.D. 09/06/2018 A60.04 Herpesviral vulvovaginitis Krystyna Ayala MD 08/14/2018 Z00.00 Encounter for general adult medical Haylee Cordero M.D. examination without abno 08/14/2018 I10 Essential (primary) hypertension Haylee Cordero M.D. 08/14/2018 Z23 Encounter for immunization Haylee Cordero M.D. 08/14/2018 L84 Corns and callosities Haylee Cordero M.D. 08/10/2018 M05.79 Rheumatoid arthritis with rheumatoid Justyn Gabriel M.D. factor of multiple site 08/10/2018 R76.0 Raised antibody titer Justyn Gabriel M.D. 08/10/2018 D64.9 Anemia, unspecified Justyn Gabriel M.D. 08/10/2018 M25.561 Pain in right knee Justyn Gabriel M.D. 08/10/2018 M15.0 Primary generalized (osteo)arthritis Justyn Gabriel M.D. 07/31/2018 I10 Essential (primary) hypertension Haylee Cordero M.D. Plan of Treatment Future Appointment(s):05/01/2019 3:20 pm - Justyn Gabriel M.D. at [facility]04/18/2019 3:00 pm - Krystyna Ayala MD at [facility]04[facility]03/2019 8:20 am - YOMAIRA Singh at [facility] - Justyn Gabriel M.D.M05.79 Rheumatoid arthritis with rheumatoid factor of multiple siteFollow up:Follow up in 2 or 3 months or sooner if gbmvmeK98.899 Other care home (current) drug aihqtevY59.9 Iron deficiency anemia, unspecified Functional Status Description No Information Available Mental Status Description No Information Available Referrals Refer to Dr Reason for Referral Status Appt Date Rivas Paulino MD Closed 12/27/2018 [address] [place], [place] [id number] [phone] Shannan Hammond MD pt with RA and R sided temporal headache with Sent 2018 tenderness, suspect GCA, needs urgent biopsy [address] [facility] [address] [place], [place] [address] [phone] Jackson Mcmanus DPM Called referral office, pt decided to see a Sent different parts salesman [address] [place] [address] [phone]
[2019-03-19 15:40] LABS: Troponin I 0.01 ng/mL (<0.04)
[2019-03-19 15:55] LABS: Albumin 4.4 g/dL (3.2-5.2); Albumin/Globulin Ratio 1.3 (1-3); BUN/Creatinine Ratio 27.4 (8-20); Calcium 9.7 mg/dL (8.6-10.3); EGFR African American 101.3 (>60); EGFR Non-African American 83.7 (>60); Globulin 3.4 g/dL (2-4); Total Bilirubin 0.3 mg/dL (0.2-1.0); Total Protein 7.8 g/dL (6.4-8.9)
[2019-03-19 16:00] LABS: Urine Appearance Clear; Urine Bilirubin Negative (Negative); Urine Blood Negative (Negative); Urine Color Straw; Urine Glucose Negative (Negative); Urine Ketones Negative (Negative); Urine Nitrite Negative (Negative); Urine Protein Negative (Negative); Urine Specific Gravity 1.008 (1.010-1.030); Urine Urobilinogen Negative (Negative)
[2019-03-19] MEDS ORDERED: Iohexol 350* (CONTRAST) 500 ML MDV IV ONE (16:03)
[2019-03-19 18:19] VITALS: BP 131/95
== END 2019-03-19 18:18 | disposition home or self-care (01) ==
LOC: ED 14:31
DX: R07.9 Chest pain, unspecified (principal); R11.0 Nausea; R10.9 Unspecified abdominal pain; Z85.3 Personal history of malignant neoplasm of breast; Z79.899 Other long term (current) drug therapy
CPT/HCPCS: 36415; 71275; 80053; 81003; 84484; 85025; 85379; 93005; 99283; J2405; Q9967

== ENCOUNTER 2019-04-28 09:21 | Emergency (ER) | payer OTHER ==
--- NOTE | 2019-04-28 10:16 | UC ---
Hip/Pelvis Pain - HPI Summary HPI Summary: Patient is a 53yo female with PMH significant for breast cancer presenting with R hip pain that she states began yesterday around 1pm. She states she was "just standing when it started." Describes pain as 10/10 sharp, stabbing pain that is worse with movement." States pain is much better when sitting or lying still. She denies radiating pain. She also describes pain as "feeling bloated." She denies injury or trauma. Denies swelling and bruising. She states her fianc wrapped peppermint oil on it yesterday and massage the area. She states while doing this she passed gas. Denies abdominal pain. Denies changes in BMs. Denies urinary symptoms. Denies nausea and vomiting. Denies fever and chills. Patient states she took oxycodone before coming here. Patient was prescribed oxycodone by her oncologist for "bone pain while going through radiation." States she had chemo Apr 2018 and radiation July 2018. States cancer was "completely treated." Denies having bone lesions. - History Of Current Complaint Chief Complaint: UCLowerExtremity Stated Complaint: HIP PAIN Hx Obtained From: Patient Hx Last Menstrual Period: 09/12/2017 Onset/Duration: Sudden Onset Severity Currently: Severe Pain Intensity: 10 Pain Scale Used: 0-10 Numeric - Allergies/Home Medications Allergies/Adverse Reactions: Allergies Allergy/AdvReac Type Severity Reaction Status Date / Time shrimp Allergy Severe Swelling Verified 04/28/19 09:40 Of Face,Lips,& Throat Home Medications: Home Medications oxyCODONE/Acetamin 5/325 MG* [Percocet 5/325 TAB*] 1 tab PO ONCE 04/28/19 [ History Confirmed 04/28/19] PMH/Surg Hx/FS Hx/Imm Hx Cardiovascular History: Hypertension Cancer History: Breast Cancer Other History Of: Negative For: Anticoagulant Therapy - Surgical History Surgical History: Yes Surgery Procedure, Year, and Place: Bilateral knee surgeries age 13,. RIGHT FOOT BUNION REPAIR. Left mastectomy- November 2017. hammer toe 2018 - Family History Known Family History: Positive: Hypertension, Diabetes, Other Family History: breast CA - Social History Lives: With Family Alcohol Use: None Substance Use Type: None Smoking Status (MU): Never Smoked Tobacco Have You Smoked in the Last Year: No Review of Systems All Other Systems Reviewed And Are Negative: Yes Constitutional: Positive: Negative. Negative: Fever, Chills Respiratory: Positive: Negative. Negative: Shortness Of Breath Cardiovascular: Positive: Negative. Negative: Chest Pain Gastrointestinal: Positive: Negative. Negative: Abdominal Pain, Vomiting, Diarrhea, Nausea Genitourinary: Positive: Negative Neurovascular: Positive: Negative Musculoskeletal: Positive: Arthralgia - R hip. Negative: Decreased ROM, Edema Neurological: Positive: Negative. Negative: Paresthesia, Numbness Physical Exam Triage Information Reviewed: Yes Appearance: No Pain Distress, Well-Nourished, Other: - patient appears fatigued ; she notes it is from oxycodone Vital Signs: Initial Vital Signs Temp 97.4 F 04/28/19 09:45 Pulse 75 04/28/19 09:45 Resp 20 04/28/19 09:45 BP 128/85 04/28/19 09:45 Pulse Ox 97 04/28/19 09:45 Vital Signs (72 hours) 04/28/19 04/28/19 09:45 11:44 Temperature 97.4 F 98.5 F Pulse Rate 75 60 Respiratory 20 18 Rate Blood Pressure 128/85 93/46 (mmHg) O2 Sat by Pulse 97 98 Oximetry Vital Signs Reviewed: Yes Eyes: Positive: Conjunctiva Clear ENT: Positive: Hearing grossly normal Neck: Positive: Supple Respiratory Exam: Normal Respiratory: Positive: Lungs clear, Normal breath sounds, No respiratory distress Cardiovascular Exam: Normal Cardiovascular: Positive: RRR, Pulses Normal, Brisk Capillary Refill Abdominal Exam: Normal Abdomen Description: Positive: Nontender, Soft. Negative: CVA Tenderness (R), CVA Tenderness (L) Musculoskeletal: Positive: Strength Intact, No Edema, ROM Limited @ - R hip flexion, Other: - tenderness to palpation of iliac crest Neurological Exam: Other - sensation grossly intact Neurological: Positive: Alert Psychological: Positive: Age Appropriate Behavior Skin Exam: Normal - no erythema or ecchymosis Diagnostics - Radiology R hip Radiology Interpretation Completed By: Radiologist Summary of Radiographic Findings: FINDINGS: The soft tissues are unremarkable. The bone mineralization is within normal limits. No fracture is identified. Anatomic alignment is maintained. The joint spaces are preserved. IMPRESSION: NO FRACTURE IDENTIFIED. Hip Injury Course/Dx - Course Course Of Treatment: Discussed the negative x-ray findings with patient. Patient states she was feeling better while lying down. I informed her that if her pain persists as 10 /10 despite taking oxycodone, that I recommend going to the ED for further imaging/lab work. Patient agreed to go to ED if pain worsens or if she experiences new symptoms. Patient agreed voiced understanding and agreed with treatment plan. Patient VS normal throughout visit; second BP lower d/t patient lying down. Patient in no pain distress upon departure. - Differential Dx/Diagnosis Differential Diagnosis/HQI/PQRI: Sprain, Strain Provider Diagnosis: Acute right hip pain Discharge ED - Sign-Out/Discharge Documenting (check all that apply): Patient Departure All imaging exams completed and their final reports reviewed: Yes - Discharge Plan Condition: Stable Disposition: HOME Patient Education Materials: Hip Pain (ED) Referrals: Haylee Cordero MD [Primary Care Provider] - If Needed Additional Instructions: As discussed, your xrays were read as normal today. Continue to rest and apply ice and/or heat to help relieve pain. Follow up with your PCP or the [facility] listed below if pain persists. Go to the nearest Emergency Room if you experience new or worsening symptoms, including worsening pain, fever, nausea and vomiting, abdominal pain, difficulty walking, or dizziness. - Billing Disposition and Condition Condition: STABLE Disposition: Home - Attestation Statements Provider Attestation: I was available for consult. This patient was seen by the MANUELITO. The patient was not presented to, seen by, or examined by me. -Savi
[2019-04-28 11:45] VITALS: BP 93/46
--- OUTSIDE RECORDS SUMMARY | 2019-04-30 15:58 | XMS REPORT | Continuity of Care Document ---
:1965 External Reference #:[id number] Author Name Haylee Cordero M.D. (transmitted by agent of provider Amairani Nava) Address [address] [facility], [place] [address] Care Team Providers Name Role Phone Melva Sue M.D. 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 Onset: 2017 breast Note: will undergo mastectomy /sentinel node biopsy [facility] [place] [facility] T1cNI stage 2 Essential hypertension Amira Turner [...] Unknown Never Smoked Cigarettes Smoking Status Reviewed: 04/08/19 Never Smoked Cigarettes ETOH Use Never used alcohol Tobacco Use Start: Unknown Patient has never smoked Recreational Drug Use Never Used Drugs Exercise Type/Frequency Does not exercise Allergies, Adverse Reactions, Alerts Active Allergies Reaction Severity Comments Date shrimp Anaphylaxis, Contact Severe 07/07/2011 dermatitis Venlafaxine gets palpitations 03/26/2019 Inactive Allergies NKDA 04/15/2015 Medications Active Medications SIG Qnty Indications Ordering Date Provider Paroxetine HCL once a day 30tabs N95.8 Haylee Cordero, 03/26/2019 10mg M.D. Tablets Omeprazole 1 by mouth every 30caps K29.00 Haylee Cordero, 03/26/2019 20mg day M.D. Capsules Amlodipine Besylate 1 by mouth every 30tabs I10 Dalia Bragg, 02/14/2019 day N.P. 10mg Tablets Zolpidem Tartrate Bedtime Unknown 01/07/2019 5mg Tablets Klor-Con M20 1 by mouth every 90tabs Dalia Bragg, 10/29/2018 20Meq day N.P. Tablets ER Prednisone Take 1/2 90tabs Justyn Gabriel, 10/19/2018 5mg capsule/tablet M.D. Tablets daily by mouth X 1 week then stop Methotrexate Take 5 Tablets By 30tabs Justyn Gabriel, 10/19/2018 2.5mg Mouth One Time M.D. Tablets Weekly On Fridays Valacyclovir HCL 1 tablet po bid x 3 30tabs N76.0 Krystyna Ayala, 2018 days prn 500mg Tablets exacerbation Vitamin D-3 2 tablets by mouth Haylee Cordero, 08/14/2018 1000Unit daily M.D. Capsules Folic Acid take one 90tabs D64.9 Justyn Gabriel, 08/10/2018 1mg capsule/tablet M.D. Tablets daily by mouth Red Yeast Rice Twice Daily Unknown 08/10/2017 Extract 600mg Capsules Fluticasone 1 squirts each 16gm J30.9 Haylee Coean, 04/15/2015 Propionate nostril every day M.D. 50mcg/Act Suspension Ferrous Gluconate take 1 tablet by 60tabs D53.9 Haylee Coean, 11/28/2011 mouth two times M.D. 324(38Fe) mg Tablets daily Multivitamins 1 by mouth every Unknown day Capsules Carvedilol take 1 tablet by 180tabs I42.9 Kesha SSelina 25mg mouth twice a day Shanta Alfaro Tablets I10 Tamoxifen Citrate Take 1 Tablet By Unknown 20mg Mouth Every Day Tablets Lisinopril 1 by mouth every 90tabs I42.9 Dalia Bragg, 40mg Tablets day N.P. I10 History Medications Zolpidem Tartrate Bedtime Unknown 03/19/2019 - 5mg 03/21/2019 Tablets Venlafaxine HCL ER Every Day Unknown 03/19/2019 - 37.5mg 03/21/2019 Caps ER 24HR Tamoxifen Citrate Every Day Unknown 03/19/2019 - 10mg 03/21/2019 Tablets Prednisone Once Daily With Unknown 03/19/2019 - 5mg Tablets Meal 03/21/2019 Methotrexate Sodium FR Unknown 03/19/2019 - 2.5mg 03/21/2019 Tablets Magnesium Oxide Twice Daily Unknown 03/19/2019 - 03/21/2019 400(241.3Mg) mg Tablets Loratadine Every Day Unknown 03/19/2019 - 10mg Tablets 03/21/2019 Gabapentin Bedtime Unknown 03/19/2019 - 300mg Capsules 03/21/2019 Folic Acid Every Day Unknown 03/19/2019 - 1mg Tablets 03/21/2019 Carvedilol Twice Daily Unknown 03/19/2019 - 25mg Tablets 03/21/2019 Amlodipine Besylate Every Day Unknown 03/19/2019 - 5mg 03/21/2019 Tablets Nitrofurantoin 1 by mouth twice a 14caps N30.00 [facility] 03/06/2019 - Macrocrystal day X 7 days Shanta Cordero 03/26/2019 100mg Capsules Venlafaxine HCL once a day 30tabs N95.8 [facility] 03/06/2019 - 37.5mg Shanta Cordero 03/26/2019 Tablets Valacyclovir HCL Every Day Unknown 01/07/2019 - 500mg 03/19/2019 Tablets Compazine See Instructions Unknown 01/07/2019 - 10mg Tablets 03/19/2019 Zolpidem Tartrate Bedtime Unknown 01/07/2019 - 5mg 03/19/2019 Tablets Gabapentin Bedtime Unknown 01/07/2019 - 300mg Capsules 03/19/2019 Folic Acid Every Day Unknown 01/07/2019 - 1mg Tablets 03/19/2019 Valacyclovir HCL Every Day Unknown 01/07/2019 - 500mg 02/11/2019 Tablets Compazine See Instructions Unknown 01/07/2019 - 10mg Tablets 03/26/2019 Potassium Chloride Every Day Unknown 01/07/2019 - Albertina ER 02/11/2019 20Meq Tablets ER Oxycodone-Acetaminophe Every 8 Hours Unknown 01/07/2019 - n 02/11/2019 5-325mg Tablets Gabapentin Bedtime Unknown 01/07/2019 - 300mg Capsules 03/26/2019 Folic Acid Every Day Unknown 01/07/2019 - 1mg Tablets 02/11/2019 Cyclobenzaprine HCL take 1 tablet by 5tabs M54.5 Haylee 12/12/2018 - 5mg mouth daily at Shanta Cordero 12/17/2018 Tablets night Magic Mouthwash 15mL swish and spit 200ml Melva Sue, 11/09/2018 - Equal 4x/day as needed MD 03/26/2019 [facility] Saline Nasal [place] Rinse nostrils 4x 88ml J34.89 Viniofidm Cummings, 2018 - daily HOSPITAL NURSE 02/04/2019 0.65% Solution Mupirocin use on lesion 2x 22gm J34.89 Viniofidm Cummings, 11/07/2018 - 2% Ointment daily as needed HOSPITAL NURSE 01/08/2019 Magnesium Oxide -MG 1 by mouth twice 180caps Dalia SSelina 11/06/2018 - Supplement daily Yemi, N.PSelina 01/29/2019 400mg Capsules Amlodipine Besylate 1 by mouth every 90tabs Kesha SSelina 10/19/2018 - 5mg day Angelina, 02/14/2019 Tablets M.D. Amlodipine Besylate 1 by mouth every 90tabs Qutaybeh S. 10/19/2018 - 2.5mg day Maghaydah, 02/14/2019 Tablets MJoy Immunizations CPT Code Status Date Vaccine Lot # [id number] Given 08/14/2018 Pneumococcal Conjugate Vaccine 13 Valent For [id number] Intramuscular Use 49928 Given 02/05/2018 Influenza Virus Vaccine, Quadrivalent, Split, Preservative Free 74486 Given 05/03/2016 Influ Virus Vaccine, Quadrivalent, Split Virus, [place] [id number] [place] [address] Given 04/15/2015 Influenza Virus Vaccine, Quadrivalent, Split, [id number] Preservative Free [id number] Given 04/17/2012 Fluvirin Im 3Yrs And Older [id number] 87552 Given 01/02/2012 Tdap - Tetanus/Diptheria/Acellular Pertussis [id number] Vital Signs Date Vital Result Comment 04/08/2019 11:41am Height 70 inches 5'10" Weight 189.00 lb Heart Rate 71 /min BP Systolic Sitting 118 mmHg BP Diastolic Sitting 74 mmHg Body Temperature 97.0 F O2 % BldC Oximetry 98 % BMI (Body Mass Index) 27.1 kg/m2 03/26/2019 2:13pm Height 70 inches 5'10" Weight 193.00 lb Heart Rate 79 /min BP Systolic Sitting 123 mmHg BP Diastolic Sitting 82 mmHg O2 % BldC Oximetry 97 % BMI (Body Mass Index) 27.7 kg/m2 Results Test Acquired Date Facility Test Result H/L Range Note Urinalysis Profile 04/03/2019 [facility] Urine Color Straw [address] [place] [address] [phone] Urine Appearance Clear Urine Specific Celina 1.009 Low 1.010-1.030 Urine pH 6.0 Normal 5-9 Urine Urobilinogen Negative Negative Urine Ketones Negative Negative Urine Protein Negative Negative Urine Leukocytes Negative Negative Urine Blood 1+ Abnormal Negative Urine Nitrite Negative Negative Urine Bilirubin Negative Negative Urine Glucose Negative Negative Urine White Blood Cell Absent Absent Urine Red Blood Cell Trace(0-2/hpf) Absent Urine Bacteria Absent Absent Urine Squamous Epithelial Cell Present Abnormal Absent Laboratory test 03/23/2019 [facility] C Difficile PCR <pending> finding [address] [place] [address] [phone] Stool Culture SEE RESULT BELOW 1 Laboratory test 03/22/2019 [facility] Magnesium 1.7 mg/dL Low 1.9-2.[address] [place] [address] [phone] Laboratory test 03/19/2019 [facility] Troponin-I 0.02 <0.[address] (TnI) ng/[place] [address] [phone] CBC Auto Diff 03/19/2019 [facility] White Blood 4.0 Normal 3.5 -10.[address] Count 10^3/[place] [address] [phone] Red Blood Count 4.01 10^6/uL Normal 3.70-4.87 Hemoglobin 11.9 g/dL Low 12.0-16.0 Hematocrit 34 % Low 35-47 Mean Corpuscular Volume 84 fL Normal 80-97 Mean Corpuscular Hemoglobin 30 pg Normal 27-31 Mean Corpuscular HGB Conc 35 g/dL Normal 31-36 Red Cell Distribution Width 14 % Normal 10-15 Platelet Count 247 10^3/uL Normal 150-450 Mean Platelet Volume 6.6 fL Low 7.4-10.4 Abs Neutrophils 2.6 10^3/uL Normal 1.5-7.7 Abs Lymphocytes 1.0 10^3/uL Normal 1.0-4.8 Abs Monocytes 0.3 10^3/uL Normal 0-0.8 Abs Eosinophils 0.1 10^3/uL Normal 0-0.6 Abs Basophils 0.0 10^3/uL Normal 0-0.2 Abs Nucleated RBC 0.0 10^3/uL Granulocyte % 65.1 % Lymphocyte % 24.9 % Monocyte % 7.7 % Eosinophil % 1.8 % Basophil % 0.5 % Nucleated Red Blood Cells % 0.0 Laboratory test 03/19/2019 [facility] D Dimer 442 ng/mL High Less [address] Quantitative Than 230 [place] [address] [phone] Urinalysis 03/19/2019 [facility] Urine Color Straw Profile [address] [place] [address] [phone] Urine Appearance Clear Urine Specific Celina 1.008 Low 1.010-1.030 Urine pH 8.0 Normal 5-9 Urine Urobilinogen Negative Negative Urine Ketones Negative Negative Urine Protein Negative Negative Urine Leukocytes Negative Negative Urine Blood Negative Negative Urine Nitrite Negative Negative Urine Bilirubin Negative Negative Urine Glucose Negative Negative Laboratory test 03/19/2019 [facility] Troponin-I 0.01 <0.04 [address] (TnI) ng/[place] [address] [phone] Comp Metabolic 03/19/2019 [facility] Sodium 139 Normal 135- [address] mmol/[place] [address] [phone] Potassium 4.0 mmol/L Normal 3.5-5.0 Chloride 108 mmol/L Normal 101-111 Co2 Carbon Dioxide 26 mmol/L Normal 22-32 Anion Gap 5 mmol/L Normal 2-11 Glucose 105 mg/dL High 70-100 Blood Urea Nitrogen 20 mg/dL Normal 6-24 Creatinine 0.73 mg/dL Normal 0.51-0.95 BUN/Creatinine Ratio 27.4 High 8-20 Calcium 9.7 mg/dL Normal 8.6-10.3 Total Protein 7.8 g/dL Normal 6.4-8.9 Albumin 4.4 g/dL Normal 3.2-5.2 Globulin 3.4 g/dL Normal 2-4 Albumin/Globulin Ratio 1.3 Normal 1-3 Total Bilirubin 0.30 mg/dL Normal 0.2-1.0 Alkaline Phosphatase 46 U/L Normal 34-104 Alt 19 U/L Normal 7-52 Ast 21 U/L Normal 13-39 Egfr Non- 83.7 >60 Egfr 101.3 >60 5 Laboratory test 03/11/2019 [facility] Erythrocyte Sed 24 mm/Hr Normal 0-29 6, [address] [place] [address] [phone] C Reactive Protein < 1.00 mg/L Normal <8.01 8 Comp Metabolic 03/11/2019 [facility] Sodium 139 mmol/L Normal 135-[address] [place] [address] [phone] Potassium 4.0 mmol/L Normal 3.5-5.0 Chloride 106 mmol/L Normal 101-111 Co2 Carbon Dioxide 26 mmol/L Normal 22-32 Anion Gap 7 mmol/L Normal 2-11 Glucose 88 mg/dL Normal 70-100 Blood Urea Nitrogen 20 mg/dL Normal 6-24 Creatinine 0.65 mg/dL Normal 0.51-0.95 BUN/Creatinine Ratio 30.8 High 8-20 Calcium 9.8 mg/dL Normal 8.6-10.3 Total Protein 7.1 g/dL Normal 6.4-8.9 Albumin 4.3 g/dL Normal 3.2-5.2 Globulin 2.8 g/dL Normal 2-4 Albumin/Globulin Ratio 1.5 Normal 1-3 Total Bilirubin 0.30 mg/dL Normal 0.2-1.0 Alkaline Phosphatase 48 U/L Normal 34-104 Alt 13 U/L Normal 7-52 Ast 16 U/L Normal 13-39 Egfr Non- 95.7 >60 Egfr 115.8 >60 9 CBC Auto 03/11/2019 [facility] White Blood 3.3 10^3/uL Low 3.5 -10.[address] [place] [address] [phone] Red Blood Count 4.06 10^6/uL Normal 3.70-4.87 Hemoglobin 11.9 g/dL Low 12.0-16.0 Hematocrit 34 % Low 35-47 Mean Corpuscular Volume 84 fL Normal 80-97 Mean Corpuscular Hemoglobin 29 pg Normal 27-31 Mean Corpuscular HGB Conc 35 g/dL Normal 31-36 Red Cell Distribution Width 14 % Normal 10-15 Platelet Count 261 10^3/uL Normal 150-450 Mean Platelet Volume 6.8 fL Low 7.4-10.4 Abs Neutrophils 1.8 10^3/uL Normal 1.5-7.7 Abs Lymphocytes 1.1 10^3/uL Normal 1.0-4.8 Abs Monocytes 0.3 10^3/uL Normal 0-0.8 Abs Eosinophils 0.1 10^3/uL Normal 0-0.6 Abs Basophils 0.0 10^3/uL Normal 0-0.2 Abs Nucleated RBC 0.0 10^3/uL Granulocyte % 53.9 % Lymphocyte % 32.9 % Monocyte % 9.4 % Eosinophil % 3.1 % Basophil % 0.7 % Nucleated Red Blood Cells % 0.0 Iron & Iron Binding 03/11/2019 [facility] Iron 103 g/dL Normal 50-[address] [place] [address] [phone] Unsaturated Iron Binding < 342 g/dL Total Iron Binding Capacity 357 g/dL Normal 250-450 Transferrin 255 mg/dL Normal 203-362 % Iron Saturation 29 % Normal 15-55 Laboratory test 03/11/2019 [facility] Ferritin 132.0 Normal 11 -307 [address] ng/[place] [address] [phone] Urine Culture And 03/06/2019 [facility] Urine SEE 11, Sensitivities [address] Culture RESULT 12 [place] [address] BELOW [phone] Ua Routine 03/06/2019 [facility] Ua Specific 1.015 Celina Ua PH 5 Ua Color light yellow Ua Appera clear Ua WBC - Ua Protein - Ua Glucose norm Ua Ketones - Ua Bilirubin - Ua Urobilinogen - Ua Nitrite - Ua Occult Blood 250 Laboratory test 01/03/2019 [facility] Myeloperoxidase AB <0.2 U [address] [place] [address] [phone] Proteinase 3 <0.2 U 14 Urinalysis Profile 01/03/2019 [facility] Urine Color Yellow [address] [place] [address] [phone] Urine Appearance Cloudy Urine Specific Celina 1.013 Normal 1.010-1.030 Urine pH 8.0 Normal 5-9 Urine Urobilinogen Negative Negative Urine Ketones Negative Negative Urine Protein Negative Negative Urine Leukocytes Negative Negative Urine Blood Negative Negative * * Abnormal Negative 15 Urine Nitrite Negative Negative Urine Bilirubin Negative Negative Urine Glucose Negative Negative Laboratory 11/15/2018 [facility] Gardnerella/Yeast: SEE 16, test [address] Vaginal Dna RESULT 17 [place] [address] BELOW [phone] Laboratory 11/03/2018 [facility] Rapid Strep A POSITIVE Abnormal Negative [address] [place] [address] [phone] Laboratory 11/03/2018 [facility] C Reactive Protein 19.30 High <8.01 19, test [address] mg/L 20 finding [place], [place] [address] [phone] Erythrocyte Sed Rate 66 mm/Hr High 0-29 21 CBC Auto 11/03/2018 [facility] White Blood 8.1 10^3/uL Normal 3.5-10.[address] [place] [address] [phone] Red Blood Count 3.87 10^6/uL Normal 3.70-4.87 [...] Blood Cells % 0.0 Comp Metabolic 11/03/2018 [facility] Sodium 138 mmol/L Normal 135-[address] [place] [address] [phone] Potassium 3.9 mmol/L Normal 3.5-5.0 Chloride 103 [...] Egfr Non- 87.9 >60 Egfr 106.3 >60 22 Laboratory 11/03/2018 [facility] Magnesium 1.6 Low 1.9-2.7 23 , 24 test finding [address] mg/[place] [address] [phone] Laboratory 11/03/2018 N2N/CCD Import Erythrocyte 66 mm/Hr [...] 0-0.6 Absolute Basophils (auto) 0.0 10^3/ul 0-0.2 1 SEE RESULT BELOW Name: ONEIDA REESE Dm : [address]: Tracy King MD Acct: [id number] Unit: [id number] AGE: 53 Location: [facility] Re03/23/19 SEX: F Status: REG REF SPEC: [id number] LATASHA: 03/23/1948 [facility] DR: Tracy King MD REQ: [id number] RECD: 03/23/19 STATUS: COMP _ SOURCE: STOOL SPDESC: ORDERED: Stool Culture Procedure Result Reported Site Stool Culture Final 03/25/19- 1110 ML Result No enteric pathogens isolated Testing for Salmonella, Shigella, Aeromonas, Plesiomonas, Yersinia and Campylobacter are included in a Stool Culture. Vibrio spp not routinely tested for in a stool culture. If testing is desired, please request specifically when placing test order. Sensitivities not routinely performed on stool isolates, as antibiotics may prolong the carriage rate of bacteria. Please contact the microbiology lab if sensitivities are required. Shiga Toxin 1 2 Final 03/25/19- 1024 ML Organism 1 Negative Shiga Toxin 1 2 Immunochromatographic Assay. As with all diagnostic procedures, the laboratory results obtained should be used in conjunction with other clinical information available to the physician, including confirmation by another method, as applicable. * ML - Main Lab . END OF REPORT DEPARTMENT OF PATHOLOGY, [address] [place] [address] Silvestre Collier M.D. Director [facility] # [id number] 2 Troponin-I testing on Plasma Separator Tubes (PST) has a known false positive rate of 0.20-0.40%. All positive troponins reflex immediately to secondary confirmatory testing. Using the [employer] DxI 800 Access Immunoassay systems, the 99th percentile upper reference limit was demonstrated to be < 0.03 ng/mL. 3 Please note: The following may produce a false positive D Dimer test: - Rheumatoid factor greater than 60 IU/ml - Plasma hemoglobin greater than 0.05 gm/dl - Bilirubin greater than 50 mg/dl - Lipids greater than 1000 mg/dl - FDP greater than 20 ug/ml 4 Troponin-I testing on Plasma Separator Tubes (PST) has a known false positive rate of 0.20-0.40%. All positive troponins reflex immediately to secondary confirmatory testing. Using the [employer] DxI 800 Access Immunoassay systems, the 99th percentile upper reference limit was demonstrated to be < 0.03 ng/mL. 5 Because ethnic data is not always readily [...] 15-29 5 Kidney failure <15 (or dialysis) 6 Please check labs today 7 Please check labs today 8 Please check labs today 9 Because ethnic data is not always readily [...] 15-29 5 Kidney failure <15 (or dialysis) 10 Please check labs today 11 [id number] SEE RESULT BELOW Name: ONEIAD REESE : [address]: Haylee Cordero MD Acct: [id number] Unit: [id number] AGE: 53 Location: [facility] Re03/06/19 SEX: F Status: REG REF SPEC: [id number] LATASHA: 03/06/19 [facility] DR: Haylee Cordero MD REQ: [id number] RECD: 03/07/19 STATUS: COMP _ SOURCE: URINE SPDESC: ORDERED: Urine Culture COMMENTS: [id number] Urine Source: Random Procedure Result Reported Site Urine Culture Final 03/08/19- 1217 ML No Growth (<1,000 CFU/mL) * ML - Main Lab . END OF REPORT DEPARTMENT OF PATHOLOGY, [address] [place] [address] Silvestre Collier M.D. Director [facility] # [id number] 13 REFERENCE VALUE <0.4 (Negative) Test Performed by: [facility] - [address] [address] 14 REFERENCE VALUE <0.4 (Negative) Test Performed by: [place] [address] 15 *Ascorbic acid is present which may interfere with detection of blood. 16 [id number] 17 SEE RESULT BELOW Name: ONEIDA REESE : [address]: Cierra Mccord NP, CNM Acct: [id number] Unit: [id number] AGE: 53 Location: [facility] Re11/15/18 SEX: F Status: REG REF SPEC: [id number] LATASHA: 11/15/18-[address]: Cierra Mccord NP [facility] REQ: [id number] RECD: 11/16/18 STATUS: COMP _ SOURCE: VAGINAL SPDESC: ORDERED: Nevaeh,Yeast DNA, Trich DNA COMMENTS: [id number] Would you like to order Trichomonas Vaginalis [...] CONTINUED ON NEXT PAGE DEPARTMENT OF PATHOLOGY, [address] [place] [address] Silvestre Collier M.D. Director [facility] # [id number] Patient: ONEIDA REESE [id number] (Continued) Specimen: [id number] Collected: 11/15/18 Received: 11/16/18-141 (Continued) Procedure Result Reported Site Trichomonas: Vaginal DNA Probe Final (continued) 11/17/18- 1441 The presence or absence of T. vaginalis cannot be used as a test for therapeutic success or failure. * ML - Main Lab . END OF REPORT DEPARTMENT OF PATHOLOGY, [address] [place] [address] Slivestre Collier M.D. Director [facility] # [id number] 18 Internet Designer: [id number] Please check labs 2 days before follow up 20 Please check labs 2 days before follow up 21 Please check labs 2 days before follow up 22 Because ethnic data is not always readily [...] 15-29 5 Kidney failure <15 (or dialysis) 23 1 month 24 1 month Procedures Date Code Description Status 11/04/2018 13046 Holter Monitor Review (24 hr)dr review & interp only Completed 11/01/2018 99483 ECG Monitor/Recording W/Visual Superimposition Completed Scanning 10/11/2018 48857 ECHO Transthoracic, Real-Time 2D With Doppler And Completed Color Flow 10/11/2018 21150 ECHO Transthoracic, Real-Time 2D With Doppler And Completed Color Flow 08/20/2018 [id number] Bone Mineral Density Test Completed 08/28/2017 [id number] Mammogram Completed 08/17/2017 [id number] Mammogram Completed 07/13/2017 [id number] Mammogram Completed 03/16/2017 [id number] Colonoscopy Completed 05/20/2016 [id number] Mammogram Completed 05/07/2015 [id number] Mammogram Completed 01/23/2013 [id number] Mammogram Completed 01/06/2012 [id number] Mammogram Completed Medical Devices Description No Information Available Encounters Type Date Location Provider Dx Diagnosis Office Visit 03/26/2019 [facility] Internal Haylee Cordero, G47.00 Insomnia, 2:20p Medicine - Ccmob M.D. unspecified N95.8 Other specified menopausal and perimenopausal disorders K29.00 Acute gastritis without bleeding Z79.899 Other correction (current) drug therapy Office Visit 03/22/2019 10:00a [facility] Dalia S. I10 Essential ( primary) Of Jacinto Bragg, N.P. hypertension I42.9 Cardiomyopathy, unspecified R00.2 Palpitations Office Visit 03/06/2019 2:20p [facility] Internal Haylee Cordero, N30.00 Acute cystitis Medicine - Ccmob M.D. without hematuria M25.512 Pain in left shoulder N95.8 Other specified menopausal and perimenopausal disorders Office Visit 02/14/2019 3:00p [facility] Dalia S. I10 Essential ( primary) Of Administrative Specialist Yemi, N.P. hypertension I42.9 Cardiomyopathy, unspecified R00.2 Palpitations Office Visit 01/30/2019 4:20p Rheumatology Justyn Gabriel, M05.79 Rheu arthritis Services Of Jacinto Womack w rheu factor mult site w/o org/sys involv Z79.899 Other medical terminologist (current) drug therapy D50.9 Iron deficiency anemia, unspecified Office Visit 01/22/2019 11:00a [facility] Roula Sandoval, N95.1 Menopausal and [facility] N.P. female climacteric states N76.0 Acute vaginitis Z85.3 Personal history of malignant neoplasm of breast Z79.899 Other medical terminologist (current) drug therapy Office Visit 01/08/2019 1:00p [facility] Internal Haylee Z01.818 Encounter for other Medicine - Shanta Cordero preprocedural Ccmob examination S92.413B Disp fx of prox phalanx of unsp great toe, init for opn fx Z85.3 Personal history of malignant neoplasm of breast I10 Essential (primary) hypertension I42.9 Cardiomyopathy, unspecified D50.9 Iron deficiency anemia, unspecified M05.79 Rheu arthritis w rheu factor mult site w/o org/sys involv Office Visit 12/12/2018 2:00p [facility] Internal Haylee Cordero, R07.0 Pain in throat Medicine - Suad Womack M54.5 Low back pain Office Visit 12/11/2018 9:30a [facility] Kendall M20.41 Other hammer at Carmela Calhoun M.D. 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 I10 Essential ( primary) Foster, N.P. hypertension I42.9 Cardiomyopathy, unspecified Office Visit 10/19/2018 3:40p [facility] Internal Mary Chepe, I10 Essential ( primary) Medicine - Suad GUPTA hypertension G47.00 Insomnia, unspecified Office Visit 10/19/2018 12:40p Rheumatology Justyn Gabriel, M05.79 [facility] Shanta w rheu factor mult site w/o org/sys involv Z79.899 Other medical terminologist (current) drug therapy D64.9 Anemia, unspecified R70.0 Elevated erythrocyte sedimentation rate Assessments Date Code Description Provider 04/08/2019 R19.7 Diarrhea, unspecified Haylee Cordero M.D. 04/08/2019 F51.02 Adjustment insomnia Haylee Cordero M.D. 03/26/2019 G47.00 Insomnia, unspecified Haylee Cordero M.D. 03/26/2019 N95.8 Other specified menopausal and Haylee Cordero M.D. perimenopausal disorders 03/26/2019 K29.00 Acute gastritis without bleeding Haylee Cordero M.D. 03/26/2019 Z79.899 Other medical terminologist (current) drug Haylee Cordero M.D. therapy 03/22/2019 I10 Essential (primary) hypertension Dalia Bragg N.P. 03/22/2019 I42.9 Cardiomyopathy, unspecified Dalia Bragg N.P. 03/22/2019 R00.2 Palpitations Dalia Bragg N.P. 03/06/2019 N30.00 Acute cystitis without hematuria Haylee Cordero M.D. 03/06/2019 M25.512 Pain in left shoulder Haylee Cordero M.D. 03/06/2019 N95.8 Other specified menopausal and Haylee Cordero M.D. perimenopausal disorders 02/14/2019 I10 Essential (primary) hypertension Dalia Bragg, N.P. 02/14/2019 I42.9 Cardiomyopathy, unspecified Dalia Bragg, N.P. 02/14/2019 R00.2 Palpitations Dalia Bargg, N.P. 01/30/2019 M05.79 Rheumatoid arthritis with rheumatoid Justyn Gabriel M.D. factor of multiple site 01/30/2019 Z79.899 Other medical terminologist (current) drug Justyn Gabriel M.D. therapy 01/30/2019 D50.9 Iron deficiency anemia, unspecified Justyn Gabriel M.D. 01/22/2019 N95.1 Menopausal and female climacteric Roula Sandoval, N.P. states 01/22/2019 N76.0 Acute vaginitis Roula Sandoval, N.P. 01/22/2019 Z85.3 Personal history of malignant Roula Sandoval N.P. neoplasm of breast 01/22/2019 Z79.899 Other correction (current) drug Roula Sandoval, N.P. therapy 01/08/2019 [...] M.D. foot 11/15/2018 N76.0 Acute vaginitis MICHAEL ForbesP-Cdpam 11/15/2018 Z79.899 Other medical terminologist (current) drug YOMAIRA Forbes-Cdpam therapy 11/15/2018 Z85.3 Personal history of malignant Cierra Mccord, HOSPITAL NURSE-[facility] neoplasm of breast 11/07/2018 J02.0 Streptococcal pharyngitis Zsofia Emiliano, HOSPITAL NURSE 11/07/2018 K13.79 Other lesions of oral mucosa Zsofia Emiliano, HOSPITAL NURSE 11/07/2018 J34.89 Other specified disorders of nose and Zsofia Emiliano, HOSPITAL NURSE nasal sinuses 11/07/2018 M05.79 Rheumatoid arthritis with rheumatoid Zsofia Emiliano, HOSPITAL NURSE factor of multiple site 11/07/2018 Z79.899 Other correction (current) drug Zsofia Emiliano, HOSPITAL NURSE therapy 11/07/2018 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 11/01/2018 R00.2 Palpitations Nurse Visit IC 10/26/2018 I10 Essential (primary) hypertension Dalia Bragg, N.P. 10/26/2018 I42.9 Cardiomyopathy, unspecified Dalia Bragg, N.P. 10/19/2018 I10 Essential (primary) hypertension Mary Mo MD 10/19/2018 M05.79 Rheumatoid arthritis with rheumatoid Justyn Gabriel M.D. factor of multiple site 10/19/2018 G47.00 Insomnia, unspecified Mary Mo MD 10/19/2018 Z79.899 Other correction (current) drug Justyn Gabriel M.D. therapy 10/19/2018 D64.9 Anemia, unspecified Justyn Gabriel M.D. 10/19/2018 R70.0 Elevated erythrocyte sedimentation Justyn Gabriel M.D. rate 10/11/2018 I42.9 Cardiomyopathy, unspecified Kesha Alfaro M.D. 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 at [facility]04/18/2019 3:00 pm - Krystyna Ayala MD at [facility]04/08/2019 - Haylee Cordero M.D.R19.7 Diarrhea, unspecifiedComments: discussed cramping is part of the btejquivI44.02 Adjustment insomnia Functional Status Description No Information Available Mental Status Description No Information Available Referrals Refer to Reason for Referral Status Appt Date Rivas Paulino MD Closed 12/27/2018 [address] [place] [address] [phone]
--- OUTSIDE RECORDS SUMMARY | 2019-04-30 15:58 | XMS REPORT | Continuity of Care Document ---
:1965 External Reference #:[id number] Author Name Dalia Bragg N.P. (transmitted by agent of provider Katie Blount) Address [address] [place] [place] [id number] Care Team Providers Name Role Phone Melva Sue M.D. 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 Onset: 2017 breast Note: will undergo mastectomy /sentinel node biopsy [place] [place] T1cNI stage 2 Essential hypertension Amira Turner [...] Unknown Never Smoked Cigarettes Smoking Status Reviewed: 03/22/19 Never Smoked Cigarettes ETOH Use Never used [...] 11/09/2018 Equal 4x/day as needed [facility] [place] M20 1 by mouth every [...] daily Multivitamins 1 by mouth every Unknown Capsules day Loratadine once a day for Unknown 10mg allergies as needed Capsules Carvedilol take 1 tablet by 180tabs I42.9 Kesha Tyler 25mg Tablets mouth twice a day Shanta Alfaro I10 Tamoxifen Citrate Take 1 Tablet By [...] Day Unknown 03/19/2019 - 5mg 03/21/2019 Tablets Valacyclovir HCL Every Day Unknown 01/07/2019 - 500mg 03/19/2019 Tablets Compazine See Instructions Unknown 01/07/2019 - 10mg Tablets 03/19/2019 Zolpidem Tartrate Bedtime Unknown 01/07/2019 - 5mg 03/19/2019 Tablets Gabapentin Bedtime Unknown 01/07/2019 - 300mg Capsules 03/19/2019 Folic Acid Every Day Unknown 01/07/2019 - 1mg Tablets 03/19/2019 Valacyclovir HCL Every Day Unknown 01/07/2019 - 500mg 02/11/2019 Tablets Potassium Chloride Every Day Unknown 01/07/2019 - Albertina ER 02/11/2019 20Meq Tablets ER Oxycodone-Acetaminophe Every 8 Hours Unknown 01/07/2019 - n 02/11/2019 5-325mg Tablets Folic Acid Every Day Unknown 01/07/2019 - 1mg Tablets 02/11/2019 Cyclobenzaprine HCL take 1 tablet by 5tabs M54.5 Haylee 12/12/2018 - 5mg mouth daily at Shanta Cordero 12/17/2018 Tablets night [facility] Rinse nostrils 4x 88ml J34.89 Lupe Cummings, 2018 - daily DIRECT[employer] 02/04/2019 0.65% Solution Mupirocin use on lesion 2x 22gm J34.89 Lupe Cummings, 11/07/2018 - 2% Ointment daily as needed DIRECT[employer] 01/08/2019 Magnesium Oxide -MG 1 by mouth twice 180caps Dalia S. 11/06/2018 - Supplement daily Yemi N.Liz 01/29/2019 400mg Capsules Amlodipine Besylate 1 by mouth every 90tabs Qutaybeh S. 10/19/2018 - 5mg day Maghaydah, 02/14/2019 Tablets M.D. Amlodipine Besylate 1 by mouth every 90tabs Qutaybeh S. 10/19/2018 - 2.5mg day Maghaydah, 02/14/2019 Tablets M.D. Tylenol PM Extra Every Day as needed Unknown 09/23/2018 - Strength 01/29/2019 500-25mg Tablets Methotrexate Sodium Weekly Unknown 09/23/2018 - 2.5mg 02/11/2019 Tablets Tamoxifen Citrate Every Day Unknown 09/23/2018 - 10mg 02/04/2019 Tablets Prednisone Once Daily With Unknown 09/23/2018 - 5mg Tablets Meal 03/19/2019 Tamoxifen Citrate Every Day Unknown 09/23/2018 - 10mg 03/19/2019 Tablets Immunizations CPT Code Status Date Vaccine Lot # [id number] Given 08/14/2018 Pneumococcal Conjugate Vaccine 13 Valent For [id number] Intramuscular Use 34365 Given 02/05/2018 Influenza Virus Vaccine, Quadrivalent, Split, Preservative Free 95326 Given 05/03/2016 Influ Virus Vaccine, Quadrivalent, Split Virus, [id number] [address] Given 04/15/2015 Influenza Virus Vaccine, Quadrivalent, Split, [id number] Preservative Free [id number] Given 04/17/2012 Fluvirin Im [id number] And Older [id number] 45335 Given 01/02/2012 Tdap - Tetanus/Diptheria/Acellular Pertussis [id number] Vital Signs Date Vital Result Comment 03/22/2019 9:17am Height 70 inches 5'10" Weight 190.00 lb with shoes Heart Rate 70 /min BP Systolic Sitting 130 mmHg Ra BP Diastolic Sitting 72 mmHg Ra BP Systolic Standing 128 mmHg Ra BP Diastolic Standing 70 mmHg Ra BMI (Body Mass Index) 27.3 kg/m2 Ejection Fraction 40-45% Echo 10/11/18 03/06/2019 1:51pm Height 70 inches 5'10" Weight 190.00 lb Heart Rate 78 /min BP Systolic Sitting 130 mmHg BP Diastolic Sitting 84 mmHg O2 % BldC Oximetry 100 % BMI (Body Mass Index) 27.3 kg/m2 Results Test Date Facility Test Result H/L Range Note Laboratory test 03/22/2019 [facility] Magnesium <pending> finding [address] [place] [address] [phone] Laboratory test 03/19/2019 [facility] Troponin-I 0.02 ng/mL < 0.[address] (TnI) [place] [address] [phone] CBC Auto Diff 03/19/2019 [facility] White Blood 4.0 10^3/uL Normal 3.5-10.[address] [place] [address] [phone] Red Blood Count 4.01 10^6/uL Normal 3.70-4.87 [...] Blood Cells % 0.0 Laboratory test 03/19/2019 [facility] D Dimer 442 ng/mL High Less [address] Quantitative Than 230 [place] [address] [phone] Urinalysis 03/19/2019 [facility] Urine Color Straw Profile [address] [place] [address] [phone] Urine Appearance Clear Urine Specific Mazama 1.008 Low 1.010-1.030 Urine pH 8.0 Normal 5-9 Urine Urobilinogen Negative Negative Urine Ketones Negative Negative Urine Protein Negative Negative Urine Leukocytes Negative Negative Urine Blood Negative Negative Urine Nitrite Negative Negative Urine Bilirubin Negative Negative Urine Glucose Negative Negative Laboratory test 03/19/2019 [facility] Troponin-I 0.01 <0.04 [address] (TnI) ng/[place] [address] [phone] Comp Metabolic 03/19/2019 [facility] Sodium 139 Normal 135- [address] mmol/[place] [address] [phone] Potassium 4.0 mmol/L Normal 3.5-5.0 Chloride 108 [...] Egfr Non- 83.7 >60 Egfr 101.3 >60 4 Laboratory test 03/11/2019 [facility] Ferritin 132.0 Normal 11 -307 5, [address] ng/[place] [address] [phone] Iron & Iron 03/11/2019 [facility] Iron 103 g/dL Normal 50- 212 Binding Capacity [address] [place] [address] [phone] Unsaturated Iron Binding < 342 g/dL Total Iron Binding Capacity 357 g/dL Normal 250-450 Transferrin 255 mg/dL Normal 203-362 % Iron Saturation 29 % Normal 15-55 CBC Auto 03/11/2019 [facility] White Blood 3.3 10^3/uL Low 3.5 -10.[address] [place] [address] [phone] Red Blood Count 4.06 10^6/uL Normal 3.70-4.87 [...] Red Blood Cells % 0.0 Comp Metabolic 03/11/2019 [facility] Sodium 139 mmol/L Normal 135-[address] [place] [address] [phone] Potassium 4.0 mmol/L Normal 3.5-5.0 Chloride 106 [...] Egfr Non- 95.7 >60 Egfr 115.8 >60 7 Laboratory test 03/11/2019 [facility] Erythrocyte Sed 24 mm/Hr Normal 0-29 [address] [place] [address] [phone] C Reactive Protein < 1.00 mg/L Normal <8.01 9 Ua Routine 03/06/2019 [facility] Ua Specific Mazama 1.015 Ua PH 5 Ua Color light yellow Ua Appera clear Ua WBC - Ua Protein - Ua Glucose norm Ua Ketones - Ua Bilirubin - Ua Urobilinogen - Ua Nitrite - Ua Occult Blood 250 Urine Culture And 03/06/2019 [facility] Urine Culture SEE RESULT 10, [address] [place] [address] [phone] Laboratory test 01/03/2019 [facility] Myeloperoxidase AB <0.2 U [address] [place] [address] [phone] Proteinase 3 <0.2 U 13 Urinalysis Profile 01/03/2019 [facility] Urine Color Yellow [address] [place], [place] [id number] [phone] Urine Appearance Cloudy Urine Specific Mazama 1.013 Normal 1.010-1.030 Urine pH 8.0 Normal 5-9 Urine Urobilinogen Negative Negative Urine Ketones Negative Negative Urine Protein Negative Negative Urine Leukocytes Negative Negative Urine Blood Negative Negative * * Abnormal Negative 14 Urine Nitrite Negative Negative Urine Bilirubin Negative Negative Urine Glucose Negative Negative Laboratory 11/15/2018 [facility] Gardnerella/Yeast: SEE 15 , 16 test finding [address] [place] [address] BELOW [phone] Laboratory 11/03/2018 N2N/CCD Import Erythrocyte 66 mm/Hr High 0-2 Studies Sedimentation Rate 9 Magnesium Level 1.6 mg/dL Low 1.9-2.7 Total [...] Basophils (auto) 0.0 10^3/ul 0-0.2 Laboratory test 11/03/2018 [facility] Magnesium 1.6 mg/dL Low 1.9-2.7 17, [address] [place] [address] [phone] Comp Metabolic 11/03/2018 [facility] Sodium 138 Normal 135- 145 [address] mmol/[place] [address] [phone] Potassium 3.9 mmol/L Normal 3.5-5.0 Chloride 103 [...] Egfr Non- 87.9 >60 Egfr 106.3 >60 20 CBC Auto 11/03/2018 [facility] White Blood 8.1 10^3/uL Normal 3.5-10.[address] [place] [address] [phone] Red Blood Count 3.87 10^6/uL Normal 3.70-4.87 [...] Red Blood Cells % 0.0 Laboratory test 11/03/2018 [facility] C Reactive 19.30 mg/L High <8.01 [address] [place] [address] [phone] Erythrocyte Sed Rate 66 mm/Hr High 0-29 22 Laboratory 11/03/2018 [facility] Rapid Strep POSITIVE Abnormal Negative [address] [place] [address] [phone] Laboratory 09/25/2018 [facility] Surgical SEE RESULT 24, test finding [address] Pathology BELOW 25 [place] [address] [phone] Inr/Protime 09/23/2018 [facility] Inr 1.14 High 0.82-1.[address] [place], [place] [address] [phone] Laboratory 09/23/2018 [facility] Partial 28.6 Normal 26.0- 36.[address] [place] [address] Time PTT [phone] Lactic Acid 0.6 mmol/L Normal 0.5-2.0 27 Comp Metabolic 09/23/2018 [facility] Sodium 137 mmol/L Normal 135-[address] [place] [address] [phone] Potassium 3.5 mmol/L Normal 3.5-5.0 Chloride 104 [...] Egfr Non- 87.9 >60 Egfr 106.3 >60 28 Laboratory test 09/23/2018 [facility] Creatine 98 U/L Normal 10-[address] Kinase(CK) [place] [address] [phone] CRP High Sensitivity 4.44 mg/L High <2.00 CKMB 09/23/2018 [facility] CKMB ng/mL 3.1 ng/mL Normal 0.6- 6.[address] [place] [address] [phone] CBC Auto 09/23/2018 [facility] White Blood 4.4 10^3/uL Normal 3.5-10.[address] [place] [address] [phone] Red Blood Count 4.32 10^6/uL Normal 3.70-4.87 [...] Red Blood Cells % 0.1 Laboratory test 09/23/2018 [facility] Erythrocyte Sed 43 mm/Hr High 0-[address] [place] [address] [phone] Troponin-I testing on Plasma Separator Tubes (PST) has a known false positive rate of 0.20-0.40%. All positive troponins reflex immediately to secondary confirmatory testing. Using the Stagend.comI 800 Access Immunoassay systems, the 99th percentile upper reference limit was demonstrated to be < 0.03 ng/mL. 2 Please note: The following may produce a false positive D Dimer test: - Rheumatoid factor greater than 60 IU/ml - Plasma hemoglobin greater than 0.05 gm/dl - Bilirubin greater than 50 mg/dl - Lipids greater than 1000 mg/dl - FDP greater than 20 ug/ml 3 Troponin-I testing on Plasma Separator Tubes (PST) has a known false positive rate of 0.20-0.40%. All positive troponins reflex immediately to secondary confirmatory testing. Using the [employer]am[employer] DxI 800 Access Immunoassay systems, the 99th percentile upper reference limit was demonstrated to be < 0.03 ng/mL. 4 Because ethnic data is not always readily [...] 15-29 5 Kidney failure <15 (or dialysis) 5 Please check labs today 6 Please check labs today 7 Because ethnic data is not always readily [...] 15-29 5 Kidney failure <15 (or dialysis) 8 Please check labs today 9 Please check labs today 10 [id number] 11 SEE RESULT BELOW Name: ONEIDA REESE : [address]: Haylee Cordero MD Acct: [id number] Unit: [id number] AGE: 53 Location: [facility] Re03/06/19 SEX: F Status: REG REF SPEC: [id number] LATASHA: 03/06/19 [facility] DR: Haylee Cordero MD REQ: [id number] RECD: 03/07/19 STATUS: COMP _ SOURCE: URINE SPDESC: ORDERED: Urine Culture COMMENTS: [id number] Urine Source: Random Procedure Result Reported Site Urine Culture Final 03/08/19- 1217 ML No Growth (<1,000 CFU/mL) * ML - Main Lab . END OF REPORT DEPARTMENT OF PATHOLOGY, [address] [place] [address] Silvestre Collier M.D. Director [facility] # [id number] 12 REFERENCE VALUE <0.4 (Negative) Test Performed by: [facility] [place] [address] 13 REFERENCE VALUE <0.4 (Negative) Test Performed by: [place] [address] 14 *Ascorbic acid is present which may interfere with detection of blood. 15 [id number] 16 SEE RESULT BELOW Name: ONEIDA REESE Harpreet : [address]: Cierra Mccord NP [facility] Acct: [id number] Unit: [id number] AGE: 53 Location: [facility] Re11/15/18 SEX: F Status: REG REF SPEC: [id number] LATASHA: 11/15/18-074 [facility] DR: Cierra Mccord [facility] REQ: [id number] RECD: 11/16/18 STATUS: COMP _ SOURCE: VAGINAL SPDESC: ORDERED: Nevaeh,Yeast DNA, Trich DNA COMMENTS: [id number] Would you like to order Trichomonas Vaginalis [...] ON NEXT PAGE DEPARTMENT OF PATHOLOGY, [address] [place] [address] Silvestre Collier M.D. Director [facility] # [id number] Patient: ONEIDA REESE [id number] (Continued) Specimen: [id number] Collected: 11/15/18 Received: 11/16/18-1411 (Continued) Procedure Result Reported Site Trichomonas: Vaginal DNA Probe Final (continued) 11/17/18- 1442 The presence or absence of T. vaginalis cannot be used as a test for therapeutic success or failure. * ML - Main Lab . END OF REPORT DEPARTMENT OF PATHOLOGY, [address] [place] [address] Silvestre Collier M.D. Director [facility] # [id number] 17 1 month 18 1 month 19 Please check labs 2 days before follow up 20 Because ethnic data is not always [...] 5 Kidney failure <15 (or dialysis) 21 Please check labs 2 days before follow up 22 Please check labs 2 days before follow up 23 Finish Carpenter: [id number] 25 SEE RESULT BELOW Name: ONEIDA REESE : [address]: Diego Perea MD Acct: [id number] Unit: [id number] AGE: 53 Location: [facility] Re09/25/18 SEX: F Status: REG REF SPEC: [id number] LATASHA: 09/25/1858 [facility] DR: Diego Perea MD REQ: [id number] RECD: 09/25/18 STATUS: RENATA WATTERS DR: Maite Gabriel MD _ ORDERED: LEVEL 4 COMMENTS: [id number] FINAL DIAGNOSIS Temporal artery, right, biopsy: -- [...] 1008 END OF REPORT DEPARTMENT OF PATHOLOGY, [address] [place] [address] Silvestre Collier M.D. Director [facility] # [id number] 26 Standard intensity warfarin therapeutic range: 2.0-3.0 High intensity warfarin therapeutic range: 2.5-3.5 27 [facility] Severe Sepsis and Septic Shock Management Bundle Measure requires all lactic acids initially measuring >2.0 mmol/L be repeated. 28 Because ethnic data is not always readily [...] 15-29 5 Kidney failure <15 (or dialysis) Procedures Date Code Description Status 11/04/2018 54869 Holter Monitor Review (24 hr)dr dobson & nadeemp only Completed 11/01/2018 35940 ECG Monitor/Recording W/Visual Superimposition Completed Scanning 10/11/2018 35044 ECHO Transthoracic, Real-Time 2D With Doppler And Completed Color Flow 10/11/2018 93630 ECHO Transthoracic, Real-Time 2D With Doppler And Completed Color Flow 09/25/2018 41296 Ligation Or Biopsy Temporal Artery Completed 08/20/2018 893872120 Bone Mineral Density Test Completed 08/28/2017 37839482 Mammogram Completed 08/17/2017 05700372 Mammogram Completed 07/13/2017 56100031 Mammogram Completed 03/16/2017 40624984 Colonoscopy Completed 05/20/2016 02698174 Mammogram Completed 05/07/2015 19171979 Mammogram Completed 01/23/2013 74488603 Mammogram Completed 01/06/2012 27750432 Mammogram Completed Medical Devices Description No Information Available Encounters Type Date Location Provider Dx Diagnosis Office Visit 02/14/2019 [facility] Dalia Bragg, I10 Essential ( primary) 3:00p Of [facility] N.P. hypertension I42.9 Cardiomyopathy, unspecified R00.2 Palpitations Office Visit 01/30/2019 4:20p Rheumatology Justyn Gabriel, M05.79 Rhe[facility] w rheu factor mult site w/o org/sys involv Z79.899 Other director ehs (current) drug therapy D50.9 Iron deficiency anemia, unspecified Office Visit 01/22/2019 11:00a [facility] [employer] Roula Sandoval, N95.1 Menopausal and Clinic [facility] N.P. female climacteric states N76.0 Acute vaginitis Z85.3 Personal history of malignant neoplasm of breast Z79.899 Other penitentiary (current) drug therapy Office Visit 01/08/2019 1:00p [facility] Internal Haylee Z01.818 Encounter for other Medicine - [facility] Disp fx of prox phalanx of unsp great toe, init for opn fx Z85.3 Personal history of malignant neoplasm of breast I10 Essential (primary) hypertension I42.9 Cardiomyopathy, unspecified D50.9 Iron deficiency anemia, unspecified M05.79 Rheu arthritis w rheu factor mult site w/o org/sys involv Office Visit 12/12/2018 2:00p [facility] Internal Haylee Cordero, R07.0 Pain in throat Medicine - Suad Womack M54.5 Low back pain Office Visit 12/11/2018 9:30a [facility] Kendall M20.41 Other hammer at Carmela Calhoun M.D. toe(s) (acquired), right foot Office Visit 11/15/2018 2:30p [facility] Cierra N76.0 Acute vaginitis [facility] Flex, DIRECTOR ON AIR-Cde Z79.899 Other penitentiary (current) drug therapy Z85.3 Personal history of malignant neoplasm of breast Office Visit 11/07/2018 8:20a [facility] Internal Zsofia Emiliano, J02.0 Streptococcal Medicine - [employer] pharyngitis Ccmob K13.79 Other lesions of oral mucosa J34.89 Other specified disorders of nose and nasal sinuses M05.79 Rheu arthritis w rheu factor mult site w/o org/sys involv Z79.899 Other director ehs (current) drug therapy Z79.52 care home (current) use of systemic steroids Office Visit 10/26/2018 3:30p [facility] Dalia S. I10 Essential ( primary) Yemi, N.P. hypertension I42.9 Cardiomyopathy, unspecified Office Visit 10/19/2018 3:40p [facility] Internal Mary Mo, I10 Essential ( primary[facility] G47.00 Insomnia, unspecified Office Visit 10/19/2018 12:40p Rheumatology Justyn Gabriel, M05.79 [facility] Shanta w rheu factor mult site w/o org/sys involv Z79.899 Other director ehs (current) drug therapy D64.9 Anemia, unspecified R70.0 Elevated erythrocyte sedimentation rate Office Visit 09/26/2018 3:00p [facility] Qutaybeh S. 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 Z85.3 Personal history of malignant neoplasm of breast Z92.3 Personal history of irradiation Office Visit 09/21/2018 10:00a [facility] Internal Medicine - Melva Sue MD R51 Headache Ccmob I10 Essential (primary) hypertension M06.9 Rheumatoid arthritis, unspecified Assessments Date Code Description Provider 03/22/2019 I10 Essential (primary) hypertension Dalia Bragg, N.P. 03/22/2019 I42.9 Cardiomyopathy, unspecified Dalia Bragg, N.P. 03/22/2019 R00.2 Palpitations Dalia Bragg, N.P. 03/06/2019 N30.00 Acute cystitis without hematuria Haylee Cordero M.D. 03/06/2019 M25.512 Pain in left shoulder Haylee Cordero M.D. 03/06/2019 N95.8 Other specified menopausal and Haylee Cordero M.D. perimenopausal disorders 02/14/2019 I10 Essential (primary) hypertension Dalia Bragg, N.P. 02/14/2019 I42.9 Cardiomyopathy, unspecified Dalia Bragg, N.P. 02/14/2019 R00.2 Palpitations Dalia Bragg, N.P. 01/30/2019 M05.79 Rheumatoid arthritis with rheumatoid Justyn Gabriel M.D. factor of multiple site 01/30/2019 Z79.899 Other penitentiary (current) drug Justyn Gabriel M.D. therapy 01/30/2019 D50.9 Iron deficiency anemia, unspecified Justyn Gabriel M.D. 01/22/2019 N95.1 Menopausal and female climacteric Roula Sandoval N.P. states 01/22/2019 N76.0 Acute vaginitis Roula Sandoval N.P. 01/22/2019 Z85.3 Personal history of malignant Roula Sandoval N.P. neoplasm of breast 01/22/2019 Z79.899 Other director ehs (current) drug Roula Sandoval N.Sandhya. therapy 01/08/2019 Z01.818 Encounter for other preprocedural [...] Calhoun M.D. foot 11/15/2018 N76.0 Acute vaginitis Cierra Mccord, DIRECTOR ON AIR-Cde 11/15/2018 Z79.899 Other penitentiary (current) drug Cierra Mccord, DIRECTOR ON AIR-Cde therapy 11/15/2018 Z85.3 Personal history of malignant Cierra Mccord, DIRECTOR [employer] AIR-Cde neoplasm of breast 11/07/2018 J02.0 Streptococcal pharyngitis Zsofia Emiliano, DIRECTOR ON AIR 11/07/2018 K13.79 Other lesions of oral mucosa Zsofia Emiliano, DIRECT[employer] AIR 11/07/2018 J34.89 Other specified disorders of nose and Zsofia Emiliano, [employer] nasal sinuses 11/07/2018 M05.79 Rheumatoid arthritis with rheumatoid Zsofia Emiliano, [employer] factor of multiple site 11/07/2018 Z79.899 Other penitentiary (current) drug Zsofia Emiliano, DIRECTOR ON AIR therapy 11/07/2018 Z79.52 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 11/01/2018 R00.2 Palpitations Nurse Visit IC 10/26/2018 I10 Essential (primary) hypertension Dalia Bragg, N.P. 10/26/2018 I42.9 Cardiomyopathy, unspecified Dalia Bragg, N.P. 10/19/2018 I10 Essential (primary) hypertension Mary Mo MD 10/19/2018 M05.79 Rheumatoid arthritis with rheumatoid Justyn Gabriel M.D. factor of multiple site 10/19/2018 Z79.899 Other penitentiary (current) drug Justyn Gabriel M.D. therapy 10/19/2018 G47.00 Insomnia, unspecified Mary Mo MD 10/19/2018 D64.9 Anemia, unspecified Justyn Gabriel M.D. 10/19/2018 R70.0 Elevated erythrocyte sedimentation Justyn Gabriel M.D. rate 10/11/2018 I42.9 Cardiomyopathy, unspecified Kesha Alfaro M.D. 10/11/2018 I42.9 Cardiomyopathy, unspecified [place] [facility] Schedule 10/11/2018 I10 Essential (primary) hypertension [place] [facility] Schedule 10/11/2018 O90.3 Peripartum cardiomyopathy [place] [facility] Schedule 09/26/2018 I10 Essential (primary) hypertension [...] M06.9 Rheumatoid arthritis, unspecified Melva Sue MD Plan of Treatment Future Appointment(s):03/26/2019 2:20 pm - Haylee Cordero M.D. at [facility] Internal Medicine - [facility]05/01/2019 3:20 pm - Justyn Gabriel M.D. at [facility]04/18/2019 3:00 pm - Krystyna Ayala MD at [facility]04/03/2019 8:20 am - YOMAIRA Singh at [facility] Internal Medicine - [facility]03/22/2019 - Dalia Bragg, N.P.I10 Essential (primary) hypertensionRecommendations:BP looks good STOP lnxibopfpB23.9 Cardiomyopathy, hgmhyuweeeaI19.2 PalpitationsFollow up:[facility] Functional Status Description No Information Available Mental Status Description No Information Available Referrals Refer to Reason for Referral Status Appt Date Rivas Paulino MD Cl[facility]/27/2018 [address] [facility] [place] [place] [id number] [phone] Shannan Hammond MD pt with RA and R sided temporal headache with Sent 2018 tenderness, suspect GCA, needs urgent biopsy [address] [facility] [address] [place], [place] [address] [phone]
--- OUTSIDE RECORDS SUMMARY | 2019-04-30 15:58 | XMS REPORT | Continuity of Care Document ---
:1965 External Reference #:[id number] Author Name Haylee Cordero M.D. (transmitted by agent of provider Deepika Hoff) Address [address] [facility], [place] [address] Care Team Providers Name Role Phone Melva Sue M.D. - Family Medicine Care Team Information Core Analyst Justyn Gabriel MD - Rheumatology Care Team Information Core Analyst [phone] Problems Active Problems Provider Date Cardiovascular Disease Other Haylee Cordero M.D. 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 Onset: 2017 breast Note: will undergo mastectomy /sentinel node biopsy [facility] [place] [facility] T1cNI stage 2 Essential hypertension Amira Turner [...] Unknown Never Smoked Cigarettes Smoking Status Reviewed: 03/26/19 Never Smoked Cigarettes ETOH Use Never used [...] one 90tabs Justyn Gabriel, 10/19/2018 5mg capsule/tablet M.D. Tablets daily by mouth Methotrexate Take 5 Tablets By 30tabs Justyn Gabriel, 10/19/2018 2.5mg Mouth One Time M.D. Tablets Weekly On Fridays Valacyclovir HCL 1 tablet po bid x 3 30tabs N76.0 Krystyna Ayala, 2018 days prn MD 500mg Tablets exacerbation Vitamin D-3 2 tablets [...] tablet by 180tabs I42.9 Qutaybeh S. 25mg mouth twice a day Shanta Alfaro [...] 1 by mouth twice a 14caps N30.00 [facility] 03/06/2019 - Macrocrystal day X 7 days Shanta Cordero 03/26/2019 100mg Capsules Venlafaxine HCL once a day 30tabs N95.8 [facility] 03/06/2019 - 37.5mg Shanta Cordero 03/26/2019 [...] 03/26/2019 Parts Of Misc [facility] Saline Nasal [place] Rinse nostrils 4x 88ml J34.89 Lupe Cummings, 2018 - daily LUMBER DRIVER 02/04/2019 0.65% Solution Mupirocin use on lesion 2x 22gm J34.89 Lupe Cummings, 11/07/2018 - 2% Ointment daily as needed LUMBER DRIVER 01/08/2019 Magnesium Oxide -MG 1 by mouth twice 180caps Dalia S. 11/06/2018 - Supplement daily Yemi N.PSelina 01/29/2019 400mg Capsules Amlodipine Besylate 1 by mouth every 90tabs Qutaybeh S. 10/19/2018 - 5mg day Angelina, 02/14/2019 José Womack Amlodipine Besylate 1 by mouth every 90tabs Qutaybeh S. 10/19/2018 - 2.5mg day Maghaydah, 02/14/2019 Tablets Shanta Immunizations CPT Code Status Date Vaccine Lot # [id number] Given 08/14/2018 Pneumococcal Conjugate Vaccine 13 Valent For [id number] Intramuscular Use 35133 Given 02/05/2018 Influenza Virus Vaccine, Quadrivalent, Split, Preservative Free 64328 Given 05/03/2016 Influ Virus Vaccine, Quadrivalent, Split Virus, [place] [id number] [address] Given 04/15/2015 Influenza Virus Vaccine, Quadrivalent, Split, [id number] Preservative Free [id number] Given 04/17/2012 Fluvirin Im 3Yrs And Older [id number] 69568 Given 01/02/2012 Tdap - Tetanus/Diptheria/Acellular Pertussis [id number] Vital Signs Date Vital Result Comment 03/26/2019 2:13pm Height 70 inches 5'10" Weight 193.00 lb Heart Rate 79 /min BP Systolic Sitting 123 mmHg BP Diastolic Sitting 82 mmHg O2 % BldC Oximetry 97 % BMI (Body Mass Index) 27.7 kg/m2 03/22/2019 9:17am Height 70 inches 5'10" Weight 190.00 lb with shoes Heart Rate 70 /min BP Systolic Sitting 130 mmHg Ra BP Diastolic Sitting 72 mmHg Ra BP Systolic Standing 128 mmHg Ra BP Diastolic Standing 70 mmHg Ra BMI (Body Mass Index) 27.3 kg/m2 Ejection Fraction 40-45% Echo 10/11/18 Results Test Date Facility Test Result H/L Range Note Laboratory test 03/23/2019 [facility] C Difficile PCR <pending> finding [address] [place] [address] [phone] Stool Culture SEE RESULT BELOW 1 Laboratory test 03/22/2019 [facility] Magnesium 1.7 mg/dL Low 1.9-2.[address] [place] [address] [phone] Laboratory test 03/19/2019 [facility] Troponin-I 0.02 <0.04 2 finding 101 (TnI) ng/[place] [address] [phone] CBC Auto Diff 03/19/2019 [facility] White Blood 4.0 Normal 3.5 -10.[address] Count 10^3/uL [place], [place] [id number] [phone] Red Blood Count 4.01 10^6/uL Normal 3.70-4.87 [...] Blood Cells % 0.0 Laboratory test 03/19/2019 [facility] D Dimer 442 ng/mL High Less [address] Quantitative Than 230 [place] [address] [phone] Urinalysis 03/19/2019 [facility] Urine Color Straw Profile [address] [place] [address] [phone] Urine Appearance Clear Urine Specific [place] 1.008 Low 1.010-1.030 Urine pH 8.0 Normal 5-9 Urine Urobilinogen Negative Negative Urine Ketones Negative Negative Urine Protein Negative Negative Urine Leukocytes Negative Negative Urine Blood Negative Negative Urine Nitrite Negative Negative Urine Bilirubin Negative Negative Urine Glucose Negative Negative Laboratory test 03/19/2019 [facility] Troponin-I 0.01 <0.[address] (TnI) ng/[place] [address] [phone] Comp Metabolic 03/19/2019 [facility] Sodium 139 Normal 135- [address] mmol/[place] [address] [phone] Potassium 4.0 mmol/L Normal 3.5-5.0 Chloride 108 [...] Egfr 101.3 >60 5 Laboratory test 03/11/2019 [facility] Erythrocyte Sed 24 mm/Hr Normal 0-29 6, [address] [place] [address] [phone] C Reactive Protein < 1.00 mg/L Normal <8.01 8 Comp Metabolic 03/11/2019 [facility] Sodium 139 mmol/L Normal 135-[address] [place] [address] [phone] Potassium 4.0 mmol/L Normal 3.5-5.0 Chloride 106 [...] Egfr 115.8 >60 9 CBC Auto 03/11/2019 [facility] White Blood 3.3 10^3/uL Low 3.5 -10.[address] [place] [address] [phone] Red Blood Count 4.06 10^6/uL Normal 3.70-4.87 [...] % 0.0 Iron & Iron Binding 03/11/2019 [facility] Iron 103 g/dL Normal 50-[address] [place] [address] [phone] Unsaturated Iron Binding < 342 g/dL Total Iron Binding Capacity 357 g/dL Normal 250-450 Transferrin 255 mg/dL Normal 203-362 % Iron Saturation 29 % Normal 15-55 Laboratory test 03/11/2019 [facility] Ferritin 132.0 Normal 11 -307 [address] ng/[place] [address] [phone] Ua Routine 03/06/2019 Control Room Technician In House Ua Specific 1.015 [place] Ua PH 5 Ua Color light yellow Ua Appera clear Ua WBC - Ua Protein - Ua Glucose norm Ua Ketones - Ua Bilirubin - Ua Urobilinogen - Ua Nitrite - Ua Occult Blood 250 Urine Culture And 03/06/2019 [facility] Urine Culture SEE RESULT 11, [address] [place] [address] [phone] Urinalysis Profile 01/03/2019 [facility] Urine Color Yellow [address] [place] [address] [phone] Urine Appearance Cloudy Urine Specific [place] 1.013 Normal 1.010-1.030 Urine pH 8.0 Normal 5-9 Urine Urobilinogen Negative Negative Urine Ketones Negative Negative Urine Protein Negative Negative Urine Leukocytes Negative Negative Urine Blood Negative Negative * * Abnormal Negative 13 Urine Nitrite Negative Negative Urine Bilirubin Negative Negative Urine Glucose Negative Negative Laboratory test 01/03/2019 [facility] Myeloperoxidase AB <0.2 U [address] [place] [address] [phone] Proteinase 3 <0.2 U 15 Laboratory 11/15/2018 [facility] Gardnerella/Yeast: SEE 16, test [address] Vaginal Dna RESULT 17 [place] [address] BELOW [phone] Laboratory 11/03/2018 [facility] Rapid Strep A POSITIVE Abnormal Negative [address] [place] [address] [phone] Laboratory 11/03/2018 [facility] C Reactive Protein 19.30 High <8.01 19, test [address] mg/L 20 [place] [address] [phone] Erythrocyte Sed Rate 66 mm/Hr High 0-29 21 CBC Auto 11/03/2018 [facility] White Blood 8.1 10^3/uL Normal 3.5-10.[address] [place] [address] [phone] Red Blood Count 3.87 10^6/uL Normal 3.70-4.87 [...] Blood Cells % 0.0 Comp Metabolic 11/03/2018 [facility] Sodium 138 mmol/L Normal 135-[address] [place] [address] [phone] Potassium 3.9 mmol/L Normal 3.5-5.0 Chloride 103 [...] >60 Egfr 106.3 >60 22 Laboratory 11/03/2018 [facility] Magnesium 1.6 Low 1.9-2.7 23 , 24 test finding [address] mg/[place] [address] [phone] Laboratory 11/03/2018 N2N/CCD Import Erythrocyte 66 mm/Hr [...] (auto) 0.0 10^3/ul 0-0.2 Laboratory test 09/25/2018 [facility] Surgical SEE RESULT finding [address] [place] [address] [phone] 1 SEE RESULT BELOW Name: ONEIDA REESE : [address]: Tracy King MD Acct: [id number] Unit: [id number] AGE: 53 Location: [facility] Re03/23/19 SEX: F Status: REG REF SPEC: [id number] LATASHA: 03/23/1948 [facility] [address]: Tracy King MD REQ: [id number] RECD: 03/23/19 STATUS: COMP _ SOURCE: STOOL [...] . END OF REPORT DEPARTMENT OF PATHOLOGY, [address] [place] [address] Silvestre Collier M.D. Director [facility] # [id number] 2 Troponin-I testing on Plasma Separator Tubes (PST) has a known false positive rate of 0.20-0.40%. All positive troponins reflex immediately to secondary confirmatory testing. Using the Optimitive DxI 800 Access Immunoassay systems, the 99th [...] immediately to secondary confirmatory testing. Using the Optimitive DxI 800 Access Immunoassay systems, the 99th [...] dialysis) 10 Please check labs today 11 [id number] 12 SEE RESULT BELOW Name: ONEIDA REESE : [address]: Haylee Cordero MD Acct: [id number] Unit: [id number] AGE: 53 Location: [facility] Re03/06/19 SEX: F Status: REG REF SPEC: [id number] LATASHA: 03/06/[address]: Haylee Cordero MD REQ: [id number] RECD: 03/07/19 STATUS: COMP _ SOURCE: URINE SPDESC: ORDERED: Urine Culture COMMENTS: [id number] Urine Source: Random Procedure Result Reported Site Urine Culture Final 03/08/19- 1217 ML No Growth (<1,000 CFU/mL) * ML - Main Lab . END OF REPORT DEPARTMENT OF PATHOLOGY, [address] [place] [address] Silvestre Collier M.D. Director [facility] # [id number] 13 *Ascorbic acid is present which may interfere with detection of blood. 14 REFERENCE VALUE <0.4 (Negative) Test Performed by: [facility] - [address] [address] 15 REFERENCE VALUE <0.4 (Negative) Test Performed by: [address] [address] 16 [id number] 17 SEE RESULT BELOW Name: ONEIDA REESE Dm : [address]: Cierra Mccord NP, CNM Acct: [id number] Unit: [id number] AGE: 53 Location: [facility] Re11/15/18 SEX: F Status: REG REF SPEC: [id number] LATASHA: 11/15/18-[address]: Cierra Mccord [facility] REQ: [id number] RECD: 11/16/18 STATUS: COMP _ SOURCE: VAGINAL SPDESC: ORDERED: Nevaeh,Yeast DNA, Trich DNA COMMENTS: [id number] Would you like to order Trichomonas Vaginalis [...] CONTINUED ON NEXT PAGE DEPARTMENT OF PATHOLOGY, [address] [place] [address] Silvestre Collier M.D. Director [facility] # [id number] Patient: ONEIDA REESE [id number] (Continued) Specimen: [id number] Collected: 11/15/18 Received: 11/16/18-1411 (Continued) Procedure Result Reported Site Trichomonas: Vaginal DNA Probe Final (continued) 11/17/18- 1442 The presence or absence of T. vaginalis cannot be used as a test for therapeutic success or failure. * ML - Main Lab . END OF REPORT DEPARTMENT OF PATHOLOGY, [address] [place] [address] Silvestre Collier M.D. Director [facility] # [id number] 18 Plunger Machine Operator: [id number] Please check labs 2 days before [...] dialysis) 23 1 month 24 1 month 25 [id number] 26 SEE RESULT BELOW Name: ONEIDA REESE : [address]: Diego Perea MD Acct: [id number] Unit: [id number] AGE: 53 Location: [facility] Re09/25/18 SEX: F Status: REG REF SPEC: [id number] LATASHA: 09[birth year]1858 [facility] DR: Diego Perea MD REQ: [id number] RECD: 09/25/18 STATUS: RENATA WATTERS DR: Maite Gabriel MD _ ORDERED: LEVEL 4 COMMENTS: [id number] FINAL DIAGNOSIS Temporal artery, right, biopsy: -- [...] 1008 END OF REPORT DEPARTMENT OF PATHOLOGY, [address] [place] [address] Silvestre Collier M.D. Director [facility] # [id number] Procedures Date Code Description Status 11/04/2018 46523 Holter Monitor Review (24 hr)dr review & interp only Completed 11/01/2018 46333 ECG Monitor/Recording W/Visual Superimposition Completed Scanning 10/11/2018 40397 ECHO Transthoracic, Real-Time 2D With Doppler And Completed Color Flow 10/11/2018 30806 ECHO Transthoracic, Real-Time 2D With Doppler And Completed Color Flow 09/25/2018 66530 Ligation Or Biopsy Temporal Artery Completed 08/20/2018 780810103 Bone Mineral Density Test Completed 08/28/2017 [id number] Mammogram Completed 08/17/2017 25488671 Mammogram Completed 07/13/2017 [id number] Mammogram Completed 03/16/2017 [id number] Colonoscopy Completed 05/20/2016 [id number] Mammogram Completed 05/07/2015 81921875 Mammogram Completed 01/23/2013 58587191 Mammogram Completed 01/06/2012 82733337 Mammogram Completed Medical Devices Description No Information Available Encounters Type Date Location Provider Dx Diagnosis Office Visit 03/22/2019 [facility] Dalia Bragg, I10 Essential ( primary) 10:00a Of Control Room Technician N.P. hypertension I42.9 Cardiomyopathy, unspecified R00.2 Palpitations Office Visit 03/06/2019 2:20p Control Room Technician Internal Haylee Cordero, N30.00 Acute cystitis Medicine - Suad Womack without hematuria M25.512 Pain in left shoulder N95.8 Other specified menopausal and perimenopausal disorders Office Visit 02/14/2019 3:00p [facility] Dalia SSelina I10 Essential ( primary) [facility] Yemi N.P. hypertension I42.9 Cardiomyopathy, unspecified R00.2 Palpitations Office Visit 01/30/2019 4:20p Rheumatology Justyn Gabriel, M05.79 [facility] Shanta w rheu factor mult site w/o org/sys involv Z79.899 Other automobile upholsterer (current) drug therapy D50.9 Iron deficiency anemia, unspecified Office Visit 01/22/2019 11:00a [facility] Roula Sandoval, N95.1 Menopausal and [facility] N.P. 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 I10 Essential ( primary) Foster, N.P. hypertension I42.9 Cardiomyopathy, unspecified Office Visit 10/19/2018 3:40p [facility] Internal Mary Chepe, I10 Essential ( primary) Medicine - [facility] hypertension G47.00 Insomnia, unspecified Office Visit 10/19/2018 12:40p Rheumatology Justyn Gabriel, M05.79 [facility] Shanta w rheu factor mult site w/o org/sys involv Z79.899 Other automobile upholsterer (current) drug therapy D64.9 Anemia, unspecified R70.0 Elevated erythrocyte sedimentation rate Office Visit 09/26/2018 3:00p [facility] Qutaybeh S. 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 Z85.3 Personal history of malignant neoplasm of breast Z92.3 Personal history of irradiation Assessments Date Code Description Provider 03/26/2019 G47.00 Insomnia, unspecified Haylee Cordero M.D. 03/26/2019 N95.8 Other specified menopausal and Haylee Cordero M.D. perimenopausal disorders 03/26/2019 K29.00 Acute gastritis without bleeding Haylee Cordero M.D. 03/22/2019 I10 Essential (primary) hypertension Dalia Bragg, N.P. 03/22/2019 I42.9 Cardiomyopathy, unspecified Dalia Bragg, N.P. 03/22/2019 R00.2 Palpitations Dalia Bragg N.P. [...] factor of multiple site 01/30/2019 Z79.899 Other senior living (current) drug Justyn Gabriel M.D. therapy 01/30/2019 D50.9 Iron deficiency anemia, unspecified Justyn Gabriel M.D. 01/22/2019 N95.1 Menopausal and female climacteric Roula Jaime, N.P. states 01/22/2019 N76.0 Acute vaginitis Roula Sandoval, N.P. 01/22/2019 Z85.3 Personal history of malignant Roula Sandoval, N.P. neoplasm of breast 01/22/2019 Z79.899 Other senior living (current) drug Roula Sandoval, N.P. therapy 01/08/2019 Z01.818 Encounter for other preprocedural Haylee Cordero M.D. examination 01/08/2019 S92.413B Displaced fracture of proximal Haylee Cordero M.D. phalanx of unspecified great toe, initial encounter for open fracture 01/08/2019 Z85.3 Personal history of malignant Haylee Cordero M.D. neoplasm of breast 01/08/2019 I10 Essential (primary) hypertension aHylee Cordero M.D. 01/08/2019 I42.9 Cardiomyopathy, unspecified Haylee [...] foot 11/15/2018 N76.0 Acute vaginitis Cierra Mccord, LUMBER DRIVER-Cde 11/15/2018 Z79.899 Other automobile upholsterer (current) drug Cierra Mccord, LUMBER DRIVER-Cde therapy 11/15/2018 Z85.3 Personal history of malignant Cierra Mccord, LUMBER DRIVER-Cde neoplasm of breast 11/07/2018 J02.0 Streptococcal pharyngitis Zsofia Emiliano, LUMBER DRIVER 11/07/2018 K13.79 Other lesions of oral mucosa Zsofia Emiliano, LUMBER DRIVER 11/07/2018 J34.89 Other specified disorders of nose and Zsofia Emiliano, LUMBER DRIVER nasal sinuses 11/07/2018 M05.79 Rheumatoid arthritis with rheumatoid Zsofia Emiliano, LUMBER DRIVER factor of multiple site 11/07/2018 Z79.899 Other automobile upholsterer (current) drug Zsofia Emiliano, LUMBER DRIVER therapy 11/07/2018 Z79.52 clinical education consultant (current) use of systemic Zsofia Emiliano, LUMBER DRIVER steroids 11/04/2018 R00.2 Palpitations Rivas Watson M.D. 11/01/2018 R00.2 Palpitations Nurse Visit IC 10/26/2018 I10 Essential (primary) hypertension Dalia Bragg, N.P. 10/26/2018 I42.9 Cardiomyopathy, unspecified Dalia Bragg, N.P. 10/19/2018 M05.79 Rheumatoid arthritis with rheumatoid Justyn Gabriel M.D. factor of multiple site 10/19/2018 I10 Essential (primary) hypertension Mary Mo MD 10/19/2018 G47.00 Insomnia, unspecified Mary Mo MD 10/19/2018 Z79.899 Other automobile upholsterer (current) drug Justyn Gabriel M.D. therapy 10/19/2018 D64.9 Anemia, unspecified Justyn Gabriel M.D. 10/19/2018 R70.0 Elevated erythrocyte sedimentation Justyn Gabriel M.D. rate 10/11/2018 I42.9 Cardiomyopathy, unspecified Kesha Alfaro M.D. 10/11/2018 I42.9 Cardiomyopathy, unspecified [facility] Schedule 10/11/2018 I10 Essential (primary) hypertension [facility] Schedule 10/11/2018 O90.3 Peripartum cardiomyopathy [facility] Schedule 09/26/2018 I10 Essential (primary) hypertension Kesha Alfaro M.D. 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 09/26/2018 Z85.3 Personal history of malignant Kesha Alfaro M.D. neoplasm of breast 09/26/2018 Z92.3 Personal history of irradiation Kesha Alfaro M.D. 09/25/2018 M31.6 Other giant cell arteritis Diego Perea M.D. Plan of Treatment Future Appointment(s):05/01/2019 3:20 pm - Justyn Gabriel M.D. at [facility]04/18/2019 3:00 pm - Krystyna Ayala MD at [facility]04/03/2019 8:20 am - YOMAIRA Singh at [facility] Internal Medicine - [facility]03/26/2019 - Haylee Cordero M.D.G47.00 Insomnia, unspecifiedComments:we discussed increasing the ambien to 10 mg /dayN95.8 Other specified menopausal and perimenopausal disordersNew Medication:Paroxetine HCL 10 mg - once a dayK29.00 Acute gastritis without bleedingNew Medication:Omeprazole 20 mg - 1 by mouth every day Functional Status Description No Information Available Mental Status Description No Information Available Referrals Refer to Reason for Referral Status Appt Date Rivas Paulino MD Closed 12/27/2018 [address] [place] [address] [phone]
--- OUTSIDE RECORDS SUMMARY | 2019-04-30 15:58 | XMS REPORT | Continuity of Care Document ---
:1965 External Reference #:[id number] Author Name Dalia Bragg N.P. (transmitted by agent of provider Holly Clarke) Address [address] [place] [address] Care Team Providers Name Role Phone Melva Sue M.D. - Family Medicine Care Team Information Appeals Assistant Justyn Gabriel MD - Rheumatology Care Team Information Appeals Assistant Problems Active Problems Provider Date Cardiovascular Disease Other Haylee Cordero M.D. 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 Onset: 2017 breast Note: will undergo mastectomy /sentinel node biopsy Dr. [place] T1cNI stage 2 Essential hypertension Amira Turner [...] Qnty Indications Ordering Date Provider Amlodipine Besylate Every Day Unknown 03/19/2019 5mg Tablets Carvedilol Twice Daily Unknown 03/19/2019 25mg Tablets Folic Acid Every Day Unknown 03/19/2019 1mg Tablets Gabapentin Bedtime Unknown 03/19/2019 300mg Capsules Loratadine Every Day Unknown 03/19/2019 10mg Tablets Magnesium Oxide Twice Daily Unknown 03/19/2019 400(241.3Mg) mg Tablets Methotrexate Sodium FR Unknown 03/19/2019 2.5mg Tablets Prednisone Once Daily With Unknown 03/19/2019 5mg Tablets Meal Tamoxifen Citrate Every Day Unknown 03/19/2019 10mg Tablets Venlafaxine HCL ER Every Day Unknown 03/19/2019 37.5mg Caps ER 24HR Zolpidem Tartrate Bedtime Unknown 03/19/2019 5mg Tablets Nitrofurantoin 1 by mouth twice a [...] 11/09/2018 Equal 4x/day as needed [facility] Klor-Con M20 1 by mouth every 90tabs Dalia Bragg, 10/29/2018 20Meq day N.P. Tablets ER Prednisone Take one 90tabs Justyn Sundor, 10/19/2018 5mg Tablets capsule/tablet M.D. daily by [...] Folic Acid take one 90tabs D64.9 Justyn Sundor, 08/10/2018 1mg Tablets capsule/tablet M.D. daily by [...] Dalia Bragg, 40mg Tablets day N.P. I10 Magnesium Oxide Take 1 Tablet By Mouth Two Unknown 400(241.3Mg) mg Tablets Times Daily History Medications Valacyclovir HCL Every Day Unknown 01/07/2019 - [...] 12/12/2018 - 5mg mouth daily at [facility] Crodero 12/17/2018 Tablets night [facility] Saline Nasal [place] Rinse nostrils 4x 88ml J34.89 Zsofia Emiliano, 2018 - daily [employer] 02/04/2019 0.65% Solution Mupirocin use on lesion 2x 22gm J34.89 Viniofidm Cummings, 11/07/2018 - 2% Ointment daily as needed [employer] 01/08/2019 Magnesium Oxide -MG 1 by mouth [...] CPT Code Status Date Vaccine Lot # 33478 Given 08/14/2018 Pneumococcal Conjugate Vaccine 13 Valent For [id number] Intramuscular Use 07844 Given 02/05/2018 Influenza Virus Vaccine, Quadrivalent, Split, Preservative Free 55372 Given 05/03/2016 Influ Virus Vaccine, Quadrivalent, Split Virus, [place] [id number] [address] Given 04/15/2015 Influenza Virus Vaccine, Quadrivalent, Split, [id number] Preservative Free [id number] Given 04/17/2012 Fluvirin Im 3Yrs And Older [id number] 43409 Given 01/02/2012 Tdap - Tetanus/Diptheria/Acellular Pertussis [id number] Vital Signs Date Vital Result Comment 03/06/2019 [...] Test Result H/L Range Note Laboratory test 03/19/2019 [facility] Troponin-I 0.02 ng/mL < 0.[address] (TnI) [place] [address] [phone] CBC Auto Diff 03/19/2019 [facility] White Blood 4.0 10^3/uL Normal 3.5-10.[address] [place] [address] [phone] Red Blood Count 4.01 10^6/uL Normal 3.70-4.87 [...] Blood Cells % 0.0 Laboratory test 03/19/2019 [facility] D Dimer 442 ng/mL High Less [address] Quantitative Than 230 [place] [address] [phone] Urinalysis 03/19/2019 [facility] Urine Color Straw Profile [address] [place] [address] [phone] Urine Appearance Clear Urine Specific [place] 1.008 Low 1.010-1.030 Urine pH 8.0 Normal 5-9 Urine Urobilinogen Negative Negative Urine Ketones Negative Negative Urine Protein Negative Negative Urine Leukocytes Negative Negative Urine Blood Negative Negative Urine Nitrite Negative Negative Urine Bilirubin Negative Negative Urine Glucose Negative Negative Laboratory test 03/19/2019 [facility] Troponin-I 0.01 <0.[address] (TnI) ng/[place] [address] [phone] Comp Metabolic 03/19/2019 [facility] Sodium 139 Normal 135- [address] mmol/[place] [address] [phone] Potassium 4.0 mmol/L Normal 3.5-5.0 Chloride 108 [...] Egfr 101.3 >60 4 Laboratory test 03/11/2019 [facility] Ferritin 132.0 Normal 11 -307 5, [address] ng/[place] [address] [phone] Iron & Iron 03/11/2019 [facility] Iron 103 g/dL Normal 50- 212 Binding Capacity [address] [place] [address] [phone] Unsaturated Iron Binding < 342 g/dL Total Iron Binding Capacity 357 g/dL Normal 250-450 Transferrin 255 mg/dL Normal 203-362 % Iron Saturation 29 % Normal 15-55 CBC Auto 03/11/2019 [facility] White Blood 3.3 10^3/uL Low 3.5 -10.[address] [place] [address] [phone] Red Blood Count 4.06 10^6/uL Normal 3.70-4.87 [...] Blood Cells % 0.0 Comp Metabolic 03/11/2019 [facility] Sodium 139 mmol/L Normal 135-[address] [place] [address] [phone] Potassium 4.0 mmol/L Normal 3.5-5.0 Chloride 106 [...] Egfr 115.8 >60 7 Laboratory test 03/11/2019 [facility] Erythrocyte Sed 24 mm/Hr Normal 0-29 [address] [place] [address] [phone] C Reactive Protein < 1.00 mg/L Normal <8.01 9 Ua Routine 03/06/2019 Neurology Nurse In House Ua Specific [place] 1.015 Ua PH 5 Ua Color light yellow Ua Appera clear Ua WBC - Ua Protein - Ua Glucose norm Ua Ketones - Ua Bilirubin - Ua Urobilinogen - Ua Nitrite - Ua Occult Blood 250 Urine Culture And 03/06/2019 [facility] Urine Culture SEE RESULT 10, [address] [place] [address] [phone] Laboratory test 01/03/2019 [facility] Myeloperoxidase AB <0.2 U [address] [place], [place] [address] [phone] Proteinase 3 <0.2 U 13 Urinalysis Profile 01/03/2019 [facility] Urine Color Yellow [address] [place] [address] [phone] Urine Appearance Cloudy Urine Specific [place] 1.013 Normal 1.010-1.030 Urine pH 8.0 Normal 5-9 Urine Urobilinogen Negative Negative Urine Ketones Negative Negative Urine Protein Negative Negative Urine Leukocytes Negative Negative Urine Blood Negative Negative * * Abnormal Negative 14 Urine Nitrite Negative Negative Urine Bilirubin Negative Negative Urine Glucose Negative Negative Laboratory 11/15/2018 [facility] Gardnerella/Yeast: SEE 15 , 16 test finding [address] [place] [address] BELOW [phone] Laboratory 11/03/2018 N2N/CCD Import Erythrocyte 66 mm/Hr [...] (auto) 0.0 10^3/ul 0-0.2 Laboratory test 11/03/2018 [facility] Magnesium 1.6 mg/dL Low 1.9-2.7 17, [address] [place] [address] [phone] Comp Metabolic 11/03/2018 [facility] Sodium 138 Normal 135- 145 [address] mmol/[place] [address] [phone] Potassium 3.9 mmol/L Normal 3.5-5.0 Chloride 103 [...] Egfr 106.3 >60 20 CBC Auto 11/03/2018 [facility] White Blood 8.1 10^3/uL Normal 3.5-10.[address] [place] [address] [phone] Red Blood Count 3.87 10^6/uL Normal 3.70-4.87 [...] Blood Cells % 0.0 Laboratory test 11/03/2018 [facility] C Reactive 19.30 mg/L High <8.01 [address] [place] [address] [phone] Erythrocyte Sed Rate 66 mm/Hr High 0-29 22 Laboratory 11/03/2018 [facility] Rapid Strep POSITIVE Abnormal Negative 23 test finding [address] [place] [address] [phone] Laboratory 09/25/2018 [facility] Surgical SEE RESULT 24, test finding [address] Pathology BELOW 25 [place] [address] [phone] Inr/Protime 09/23/2018 [facility] Inr 1.14 High 0.82-1.[address] [place] [address] [phone] Laboratory 09/23/2018 [facility] Partial 28.6 Normal 26.0- 36.[address] [place] [address] Time PTT [phone] Lactic Acid 0.6 mmol/L Normal 0.5-2.0 27 Comp Metabolic 09/23/2018 [facility] Sodium 137 mmol/L Normal 135-145 Panel [address] [place] [address] [phone] Potassium 3.5 mmol/L Normal 3.5-5.0 Chloride 104 [...] Egfr 106.3 >60 28 Laboratory test 09/23/2018 [facility] Creatine 98 U/L Normal 10-[address] Kinase(CK) [place] [address] [phone] CRP High Sensitivity 4.44 mg/L High <2.00 CKMB 09/23/2018 [facility] CKMB ng/mL 3.1 ng/mL Normal 0.6- 6.[address] [place] [address] [phone] CBC Auto 09/23/2018 [facility] White Blood 4.4 10^3/uL Normal 3.5-10.8 [place] [address] [phone] Red Blood Count 4.32 10^6/uL Normal 3.70-4.87 [...] Blood Cells % 0.1 Laboratory test 09/23/2018 [facility] Erythrocyte Sed 43 mm/Hr High 0-[address] [place] [address] [phone] 1 Troponin-I testing on Plasma Separator Tubes (PST) has a known false positive rate of 0.20-0.40%. All positive troponins reflex immediately to secondary confirmatory testing. Using the [employer] DxI 800 Access Immunoassay systems, the 99th [...] immediately to secondary confirmatory testing. Using the [employer] DxI 800 Access Immunoassay systems, the 99th [...] today 9 Please check labs today 10 [id number] 11 SEE RESULT BELOW Name: ONEIDA REESE : [address]: Haylee Cordero MD Acct: [id number] Unit: [id number] AGE: 53 Location: [facility] Re03/06/19 SEX: F Status: REG REF SPEC: [id number] LATASHA: 03/06/19 [facility] DR: Haylee Cordero MD REQ: [id number] RECD: 03/07/19 STATUS: COMP _ SOURCE: URINE SPDESC: ORDERED: Urine Culture COMMENTS: [id number] Urine Source: Random Procedure Result Reported Site Urine Culture Final 03/08/19- 1217 ML No Growth (<1,000 CFU/mL) * - [facility] . END OF REPORT DEPARTMENT OF PATHOLOGY, [address] [place] [address] Silvestre Collier M.D. Director [facility] # [id number] 12 REFERENCE VALUE <0.4 (Negative) Test Performed by: [facility] - [address] [address] 13 REFERENCE VALUE <0.4 (Negative) Test Performed by: [facility] [place] [address] 14 *Ascorbic acid is present which may interfere with detection of blood. 15 [id number] 16 SEE RESULT BELOW Name: ONEIDA REESE Dm : [address]: Cierra Mccord NP [facility] Acct: [id number] Unit: [id number] AGE: 53 Location: [facility] Re11/15/18 SEX: F Status: REG REF SPEC: [id number] LATASHA: 11/15/18 [facility] DR: Cierra Mccord NP [facility] REQ: [id number] RECD: 11/16/18 STATUS: COMP _ SOURCE: VAGINAL SPDESC: ORDERED: Nevaeh,Yeast DNA, Trich DNA COMMENTS: [id number] Would you like to order Trichomonas Vaginalis [...] CONTINUED ON NEXT PAGE DEPARTMENT OF PATHOLOGY, [address] [place] [address] Silvestre Collier M.D. Director [facility] # [id number] Patient: MADHAVONEIDA Dm [id number] (Continued) Specimen: [id number] Collected: 11/15/18 Received: 11/16/18 (Continued) Procedure Result Reported Site Trichomonas: Vaginal DNA Probe Final (continued) 11/17/18- 1442 The presence or absence of T. vaginalis cannot be used as a test for therapeutic success or failure. * [facility] - [facility] . END OF REPORT DEPARTMENT OF PATHOLOGY, [address] [place] [address] Silvestre Collier M.D. Director [facility] # [id number] 17 1 month 18 1 month 19 [...] labs 2 days before follow up 23 [place] Placer: [id number] 24 [id number] 25 SEE RESULT BELOW Name: ONEIDA REESE : [address]: Diego Perea MD Acct: [id number] Unit: [id number] AGE: 53 Location: [facility] Re09/25/18 SEX: F Status: REG REF SPEC: [id number] LATASHA: 09/25/18 [facility] DR: Diego Perea MD REQ: [id number] RECD: 09/25/18 STATUS: RENATA WATTERS DR: Maite Gabriel MD _ ORDERED: LEVEL 4 COMMENTS: [id number] FINAL DIAGNOSIS Temporal artery, right, biopsy: -- [...] 1008 END OF REPORT DEPARTMENT OF PATHOLOGY, [address] [place] [address] Silvestre Collier M.D. Director [facility] # [id number] 26 Standard intensity warfarin therapeutic range: 2.0-3.0 High intensity warfarin therapeutic range: 2.5-3.5 27 [facility] Severe Sepsis and Septic Shock [...] dialysis) Procedures Date Code Description Status 11/04/2018 63829 Holter Monitor Review (24 hr)dr dobson & interp only Completed 11/01/2018 29627 ECG Monitor/Recording W/Visual Superimposition Completed Scanning 10/11/2018 08590 ECHO Transthoracic, Real-Time 2D With Doppler And Completed Color Flow 10/11/2018 70956 ECHO Transthoracic, Real-Time 2D With Doppler And Completed Color Flow 09/25/2018 50017 Ligation Or Biopsy Temporal Artery Completed 08/20/2018 [id number] Bone Mineral Density Test Completed 08/28/2017 63418014 Mammogram Completed 08/17/2017 31717098 Mammogram Completed 07/13/2017 06282940 Mammogram Completed 03/16/2017 56204552 Colonoscopy Completed 05/20/2016 06119118 Mammogram Completed 05/07/2015 26103855 Mammogram Completed 01/23/2013 53754617 Mammogram Completed 01/06/2012 38766972 Mammogram Completed Medical Devices Description No Information Available Encounters Type Date Location Provider Dx Diagnosis Office Visit 02/14/2019 [facility] Dalia Bragg, I10 Essential ( primary) 3:00p [facility] hypertension I42.9 Cardiomyopathy, unspecified R00.2 Palpitations Office Visit 01/30/2019 4:20p Rheumatology Justyn Gabriel, M05.79 Rheu arthritis [facility] w rheu factor mult site w/o org/sys involv Z79.899 Other senior living (current) drug therapy D50.9 Iron deficiency anemia, unspecified Office Visit 01/22/2019 11:00a [facility] Roula Sandoval, N95.1 Menopausal and [facility] female climacteric states N76.0 Acute vaginitis Z85.3 Personal history of malignant neoplasm of breast Z79.899 Other senior living (current) drug therapy Office Visit 01/08/2019 1:00p [facility] Haylee Z01.818 Encounter for other Medicine - Shanta Cordero preprocedural Ccmob examination S92.413B Disp fx of prox phalanx of unsp great toe, init for opn fx Z85.3 Personal history of malignant neoplasm of breast I10 Essential (primary) hypertension I42.9 Cardiomyopathy, unspecified D50.9 Iron deficiency anemia, unspecified M05.79 Rheu arthritis w rheu factor mult site w/o org/sys involv Office Visit 12/12/2018 2:00p [facility] Haylee Cordero, R07.0 Pain in throat Medicine - [facility] M54.5 Low back pain Office Visit 12/11/2018 9:30a [facility] Kendall M20.41 Other hammer at Carmela Calhoun M.D. toe(s) (acquired), right foot Office Visit 11/15/2018 2:30p [facility] Cierra N76.0 Acute vaginitis [facility] Flex, [employer]-Cde Z79.899 Other claims sorter (current) drug therapy Z85.3 Personal history of malignant neoplasm of breast Office Visit 11/07/2018 8:20a [facility] Lupe Cummings, J02.0 Streptococcal Medicine - [employer] pharyngitis Ccmob K13.79 Other lesions of oral mucosa J34.89 Other specified disorders of nose and nasal sinuses M05.79 Rheu arthritis w rheu factor mult site w/o org/sys involv Z79.899 Other claims sorter (current) drug therapy Z79.52 retirement (current) use of systemic steroids Office Visit 10/26/2018 3:30p [facility] Dalia SSelina I10 Essential ( primary) Yemi, N.P. hypertension I42.9 Cardiomyopathy, unspecified Office Visit 10/19/2018 3:40p [facility] Mary Mo, I10 Essential ( [facility] G47.00 Insomnia, unspecified Office Visit 10/19/2018 12:40p Rheumatology Justyn Gabriel, M05.79 Rheu arthritis [facility] Shanta w rheu factor mult site w/o org/sys involv Z79.899 Other claims sorter (current) drug therapy D64.9 Anemia, unspecified R70.0 Elevated erythrocyte sedimentation rate Office Visit 09/26/2018 3:00p [facility] Qutaybeh S. 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 Z85.3 Personal history of malignant neoplasm of breast Z92.3 Personal history of irradiation Office Visit 09/21/2018 10:00a [facility] Medicine - Melva Sue MD R51 Headache Ccmob I10 Essential (primary) hypertension M06.9 Rheumatoid arthritis, unspecified Assessments Date Code Description Provider 03/06/2019 N30.00 [...] factor of multiple site 01/30/2019 Z79.899 Other claims sorter (current) drug Justyn Gabriel M.D. therapy 01/30/2019 D50.9 Iron deficiency anemia, unspecified Justyn Gabriel M.D. 01/22/2019 N95.1 Menopausal and female climacteric Roula Sandoval, N.P. states 01/22/2019 N76.0 Acute vaginitis Roula Sandoval, N.P. 01/22/2019 Z85.3 Personal history of malignant Roula Sandoval N.P. neoplasm of breast 01/22/2019 Z79.899 Other claims sorter (current) drug Roula Sandoval N.P. therapy 01/08/2019 [...] foot 11/15/2018 N76.0 Acute vaginitis Cierra Mccord, [employer]-Cde 11/15/2018 Z79.899 Other senior living (current) drug Cierra Mccord, [employer]-Cde therapy 11/15/2018 Z85.3 Personal history of malignant Cierra Mccord, [employer]-Cde neoplasm of breast 11/07/2018 J02.0 Streptococcal pharyngitis Zsofia Emiliano, [employer] 11/07/2018 K13.79 Other lesions of oral mucosa Zsofia Emiliano, [employer] 11/07/2018 J34.89 Other specified disorders of nose and Zsofia Emiliano, [employer] nasal sinuses 11/07/2018 M05.79 Rheumatoid arthritis with rheumatoid Zsofia Emiliano, [employer] factor of multiple site 11/07/2018 Z79.899 Other claims sorter (current) drug Zsofia Emiliano, [employer] therapy 11/07/2018 Z79.52 retirement (current) use of systemic Zsofia Emiliano, [employer] steroids 11/04/2018 R00.2 Palpitations Rivas Watson M.D. 11/01/2018 R00.2 Palpitations Nurse Visit IC 10/26/2018 I10 Essential (primary) hypertension Dalia Bragg, N.P. 10/26/2018 I42.9 Cardiomyopathy, unspecified Dalia Bragg, N.P. 10/19/2018 I10 Essential (primary) hypertension Mary Mo MD 10/19/2018 M05.79 Rheumatoid arthritis with rheumatoid Justyn Gabriel M.D. factor of multiple site 10/19/2018 G47.00 Insomnia, unspecified Mary Mo MD 10/19/2018 Z79.899 Other senior living (current) drug Justyn Gabriel M.D. therapy 10/19/2018 D64.9 Anemia, unspecified Justyn Gabriel M.D. 10/19/2018 R70.0 Elevated erythrocyte sedimentation Justyn Gabriel M.D. rate 10/11/2018 I42.9 Cardiomyopathy, unspecified Kesha Alfaro M.D. 10/11/2018 I42.9 Cardiomyopathy, unspecified [place] [facility] Schedule 10/11/2018 I10 Essential (primary) hypertension [place] [facility] Schedule 10/11/2018 O90.3 Peripartum cardiomyopathy [place] [facility] Schedule 09/26/2018 I10 Essential (primary) hypertension [...] 2:20 pm - Haylee Cordero M.D. at [facility] - [facility]05/01/2019 3:20 pm - Justyn Gabriel M.D. at [facility]04/18/2019 3:00 pm - Krystyna Ayala MD at [facility]04/03/2019 8:20 am - YOMAIRA Singh at [facility] - [facility]03/06/2019 - Haylee Cordero M.D.N30.00 Acute cystitis without hematuriaNew Medication:Nitrofurantoin Macrocrystal 100 mg - 1 by mouth twice a day X 7 daysM25.512 Pain in left lqzryvqrQ56.8 Other specified menopausal and perimenopausal disordersNew Medication:Venlafaxine HCL 37.5 mg - once a day Functional Status Description No Information Available Mental Status Description No Information Available Referrals Refer to Dr Reason for Referral Status Appt Date Rivas Paulino MD Closed 12/27/[address] [place] [address] [phone] Shannan Hammond MD pt with RA and R sided temporal headache with Sent 2018 tenderness, 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
== END 2019-04-28 12:09 | disposition home or self-care (01) ==
LOC: UCEAST 09:21
DX: M25.551 Pain in right hip (principal); I10 Essential (primary) hypertension; Z91.013 Allergy to seafood
CPT/HCPCS: 99211; G0463

== ENCOUNTER 2019-08-14 08:48 | Emergency (ER) | payer OTHER ==
--- OUTSIDE RECORDS SUMMARY | 2019-08-14 09:02 | XMS REPORT | Continuity of Care Document ---
:1965 External Reference #:[id number] Author Name Kendall Calhoun M.D. (transmitted by agent of provider Afsaneh Barfield) Address [address] [facility] [address] Care Team Providers Name Role Phone Melva Sue M.D. - Family Medicine Care Team Information Dye Colorist Formulator Justyn Gabriel MD - Rheumatology Care Team Information Dye Colorist Formulator Problems Active Problems Provider Date Cardiovascular Disease Other Haylee Cordero M.D. 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 Onset: 2017 breast Note: will undergo mastectomy /sentinel node biopsy [facility] [place] [facility] T1cNI stage 2 Essential hypertension Amira Turner [...] Unknown Never Smoked Cigarettes Smoking Status Reviewed: 06/25/19 Never Smoked Cigarettes ETOH Use Never used alcohol Tobacco Use Start: Unknown Patient has never smoked Recreational Drug Use Never Used Drugs Exercise Type/Frequency Does not exercise Allergies, Adverse Reactions, Alerts Active Allergies Reaction Severity Comments Date shrimp Anaphylaxis, Contact Severe 07/07/2011 dermatitis Venlafaxine gets palpitations 03/26/2019 Inactive Allergies NKDA 04/15/2015 Medications Active Medications SIG Qnty Indications Ordering Date Provider Omeprazole 1 by mouth once 30caps R14.0 Rufino Allen NP 06/05/2019 20mg daily Capsules Prednisone Please take 4 tabs 60tabs M06.4 Justyn Gabriel, 05/15/2019 10mg by mouth daily for M.D. Tablets 2 days then 3 tabs daily for 2 days then 2 tabs daily for 2 days then 1 tab daily ongoing Slow-Mag take 1 tab 2x daily 60tabs Dalia Bragg, 04/18/2019 71.5-119mg N.P. Tablets Paroxetine HCL not taking due to 30tabs N95.8 Krystyna Ayala, 03/26/2019 10mg side effects MD Tablets Amlodipine Besylate 1 by mouth every 90tabs I10 Dalia Bragg, 02/14/2019 day N.P. 10mg Tablets Zolpidem Tartrate 1 at bedtime 30tabs Dianne Webster, 01/07/2019 5mg M.D., FACP Tablets Klor-Con M20 1 by mouth every 90tabs Dalia Bragg, 10/29/2018 20Meq day N.P. Tablets ER Methotrexate take 9 tablets by 60tabs Justyn Gabriel, 10/19/2018 2.5mg mouth one time M.D. Tablets weekly on fridays (avoid with antibiotics) Valacyclovir HCL 1 tablet po bid x 3 30tabs N76.0 Krystyna Ayala, 2018 days prn MD 500mg Tablets exacerbation Vitamin D-3 2 tablets by mouth Haylee Cordero, 08/14/2018 1000Unit daily M.DSelina Capsules Folic Acid take one 90tabs D64.9 Justyn Nery, 08/10/2018 1mg capsule/tablet M.D. Tablets daily by mouth Red Yeast Rice Twice Daily Unknown 08/10/2017 Extract 600mg Capsules Fluticasone 1 squirts each 16gm J30.9 Haylee Cordero, 04/15/2015 Propionate nostril every day M.DSelina 50mcg/Act Suspension Ferrous Gluconate Take 1 Tablet By 60tabs D53.9 Britt Little, 11/28/2011 Mouth Two Times N.P. 324(38Fe) mg Tablets Daily Multivitamins 1 by mouth every Unknown day Capsules Carvedilol take 1 tablet by 180tabs I42.9 Kesha SSelina 25mg mouth twice a day Shanta Alfaro Tablets I10 Tamoxifen Citrate Take 1 Tablet By Unknown 10mg Mouth Every Day Tablets Lisinopril 1 by mouth every 90tabs I42.9 Dalia Bragg, 40mg Tablets day N.P. I10 History Medications Azithromycin 2 tabs by mouth on 6tabs Justyn Sundor, 05/21/2019 - 250mg day 1; 1 tab by M.DSelina 06/04/2019 Tablets mouth every day on days 2-5 Plaquenil 1 by mouth every 45tabs M05.79 Justyn Gabriel, 05/21/2019 - 200mg Tablets day for 1 week then M.DSelina 05/21/2019 2 by mouth daily ongoing Omeprazole 1 by mouth every 30caps K29.00 [facility] 03/26/2019 - 20mg day Shanta Cordero 06/04/2019 Capsules Zolpidem Tartrate Bedtime Unknown 03/19/2019 - 5mg 03/21/2019 Tablets Venlafaxine HCL ER Every Day Unknown 03/19/2019 - 03/21/2019 37.5mg Caps ER 24HR Tamoxifen Citrate Every Day Unknown 03/19/2019 - 10mg 03/21/2019 Tablets Prednisone Once Daily With Unknown 03/19/2019 - 5mg Tablets Meal 03/21/2019 Methotrexate Sodium FR Unknown 03/19/2019 - 03/21/2019 2.5mg Tablets Magnesium Oxide Twice Daily Unknown 03/19/2019 - 03/21/2019 400(241.3Mg) mg Tablets Loratadine Every Day Unknown 03/19/2019 - 10mg Tablets 03/21/2019 Gabapentin Bedtime Unknown 03/19/2019 - 300mg 03/21/2019 Capsules Folic Acid Every Day Unknown 03/19/2019 - 1mg Tablets 03/21/2019 Carvedilol Twice Daily Unknown 03/19/2019 - 25mg Tablets 03/21/2019 Amlodipine Besylate Every Day Unknown 03/19/2019 - 5mg 03/21/2019 Tablets Nitrofurantoin 1 by mouth twice a 14caps N30.00 [facility] 03/06/2019 - Macrocrystal day X 7 days Shanta Cordero 03/26/2019 100mg Capsules Venlafaxine HCL once a day 30tabs N95.8 [facility] 03/06/2019 - 37.5mg Shanta Cordero 03/26/2019 Tablets Valacyclovir HCL Every Day Unknown 01/07/2019 - 500mg 03/19/2019 Tablets Compazine See Instructions Unknown 01/07/2019 - 10mg Tablets 03/19/2019 Zolpidem Tartrate Bedtime Unknown 01/07/2019 - 5mg 03/19/2019 Tablets Gabapentin Bedtime Unknown 01/07/2019 - 300mg 03/19/2019 Capsules Folic Acid Every Day Unknown 01/07/2019 - 1mg Tablets 03/19/2019 Valacyclovir HCL Every Day Unknown 01/07/2019 - 500mg 02/11/2019 Tablets Compazine See Instructions Unknown 01/07/2019 - 10mg Tablets 03/26/2019 Potassium Chloride Every Day Unknown 01/07/2019 - Albertina ER 02/11/2019 20Meq Tablets ER Oxycodone-Acetaminoph Every 8 Hours Unknown 01/07/2019 - en 02/11/2019 5-325mg Tablets Gabapentin Bedtime Unknown 01/07/2019 - 300mg 03/26/2019 Capsules Folic Acid Every Day Unknown 01/07/2019 - 1mg Tablets 02/11/2019 Immunizations CPT Code Status Date Vaccine Lot # [id number] Given 08/14/2018 Pneumococcal Conjugate Vaccine 13 Valent For [id number] Intramuscular Use [id number] Given 02/05/2018 Influenza Virus Vaccine, Quadrivalent, Split, Preservative Free 51919 Given 05/03/2016 Influ Virus Vaccine, Quadrivalent, Split Virus, [place] [id number] [address] Given 04/15/2015 Influenza Virus Vaccine, Quadrivalent, Split, [id number] Preservative Free [id number] Given 04/17/2012 Fluvirin Im 3Yrs And Older [id number] Given 01/02/2012 Tdap - Tetanus/Diptheria/Acellular Pertussis [id number] Vital Signs Date Vital Result Comment 06/25/2019 10:54am Height 70 inches 5'10" Weight 197.00 lb Heart Rate 72 /min BP Systolic 138 mmHg BP Diastolic 96 mmHg Respiratory Rate 12 /min Body Temperature 97.3 F Pain Level 5 BMI (Body Mass Index) 28.3 kg/m2 06/05/2019 4:12pm Height 70 inches 5'10" Weight 192.00 lb Heart Rate 72 /min BP Systolic 136 mmHg BP Diastolic 87 mmHg Body Temperature 97.9 F O2 % BldC Oximetry 97 % BMI (Body Mass Index) 27.5 kg/m2 Results Test Acquired Date Facility Test Result H/L Range Note Laboratory test 05/23/2019 [facility] Erythrocyte Sed 17 mm/Hr Normal 0-29 [address] Rate [place], [place] [id number] [phone] C Reactive Protein 10.14 mg/L High <8.01 2 CBC Auto 05/23/2019 [facility] White Blood 5.9 10^3/uL Normal 3.5-10.[address] Count [place], [place] [id number] [phone] Red Blood Count 4.03 10^6/uL Normal 3.70-4.87 Hemoglobin 11.8 g/dL Low 12.0-16.0 Hematocrit 34 % Low 35-47 Mean Corpuscular Volume 85 fL Normal 80-97 Mean Corpuscular Hemoglobin 29 pg Normal 27-31 Mean Corpuscular HGB Conc 35 g/dL Normal 31-36 Red Cell Distribution Width 14 % Normal 10-15 Platelet Count 252 10^3/uL Normal 150-450 Mean Platelet Volume 6.8 fL Low 7.4-10.4 Abs Neutrophils 3.7 10^3/uL Normal 1.5-7.7 Abs Lymphocytes 1.5 10^3/uL Normal 1.0-4.8 Abs Monocytes 0.6 10^3/uL Normal 0-0.8 Abs Eosinophils 0.2 10^3/uL Normal 0-0.6 Abs Basophils 0.0 10^3/uL Normal 0-0.2 Abs Nucleated RBC 0.0 10^3/uL Granulocyte % 61.9 % Lymphocyte % 25.2 % Monocyte % 9.6 % Eosinophil % 2.6 % Basophil % 0.7 % Nucleated Red Blood Cells % 0.0 Comp Metabolic 05/23/2019 [facility] Sodium 140 mmol/L Normal 135-[address] [place] [address] [phone] Potassium 3.6 mmol/L Normal 3.5-5.0 Chloride 105 mmol/L Normal 101-111 Co2 Carbon Dioxide 28 mmol/L Normal 22-32 Anion Gap 7 mmol/L Normal 2-11 Glucose 83 mg/dL Normal 70-100 Blood Urea Nitrogen 18 mg/dL Normal 6-24 Creatinine 0.70 mg/dL Normal 0.51-0.95 BUN/Creatinine Ratio 25.7 High 8-20 Calcium 9.7 mg/dL Normal 8.6-10.3 Total Protein 7.3 g/dL Normal 6.4-8.9 Albumin 4.3 g/dL Normal 3.2-5.2 Globulin 3.0 g/dL Normal 2-4 Albumin/Globulin Ratio 1.4 Normal 1-3 Total Bilirubin 0.30 mg/dL Normal 0.2-1.0 Alkaline Phosphatase 53 U/L Normal 34-104 Alt 13 U/L Normal 7-52 Ast 15 U/L Normal 13-39 Egfr Non- 87.9 >60 Egfr 106.3 >60 3 Laboratory test 05/04/2019 [facility] Erythrocyte Sed 28 mm/Hr Normal 0-29 4, [address] [place] [address] [phone] C Reactive Protein 1.02 mg/L Normal <8.01 6 CBC Auto 05/04/2019 [facility] White Blood 3.8 10^3/uL Normal 3.5-10.[address] [place] [address] [phone] Red Blood Count 4.10 10^6/uL Normal 3.70-4.87 Hemoglobin 11.8 g/dL Low 12.0-16.0 Hematocrit 34 % Low 35-47 Mean Corpuscular Volume 83 fL Normal 80-97 Mean Corpuscular Hemoglobin 29 pg Normal 27-31 Mean Corpuscular HGB Conc 35 g/dL Normal 31-36 Red Cell Distribution Width 13 % Normal 10-15 Platelet Count 236 10^3/uL Normal 150-450 Mean Platelet Volume 7.0 fL Low 7.4-10.4 Abs Neutrophils 2.3 10^3/uL Normal 1.5-7.7 Abs Lymphocytes 1.0 10^3/uL Normal 1.0-4.8 Abs Monocytes 0.4 10^3/uL Normal 0-0.8 Abs Eosinophils 0.1 10^3/uL Normal 0-0.6 Abs Basophils 0.0 10^3/uL Normal 0-0.2 Abs Nucleated RBC 0.0 10^3/uL Granulocyte % 59.6 % Lymphocyte % 26.7 % Monocyte % 9.9 % Eosinophil % 2.8 % Basophil % 1.0 % Nucleated Red Blood Cells % 0.1 Comp Metabolic 05/04/2019 [facility] Sodium 139 mmol/L Normal 135-[address] [place] [address] [phone] Potassium 4.1 mmol/L Normal 3.5-5.0 Chloride 105 mmol/L Normal 101-111 Co2 Carbon Dioxide 27 mmol/L Normal 22-32 Anion Gap 7 mmol/L Normal 2-11 Glucose 90 mg/dL Normal 70-100 Blood Urea Nitrogen 19 mg/dL Normal 6-24 Creatinine 0.74 mg/dL Normal 0.51-0.95 BUN/Creatinine Ratio 25.7 High 8-20 Calcium 10.1 mg/dL Normal 8.6-10.3 Total Protein 7.2 g/dL Normal 6.4-8.9 Albumin 4.4 g/dL Normal 3.2-5.2 Globulin 2.8 g/dL Normal 2-4 Albumin/Globulin Ratio 1.6 Normal 1-3 Total Bilirubin 0.40 mg/dL Normal 0.2-1.0 Alkaline Phosphatase 53 U/L Normal 34-104 Alt 16 U/L Normal 7-52 Ast 19 U/L Normal 13-39 Egfr Non- 82.4 >60 Egfr 99.7 >60 7 Ova & Parasites 04/12/2019 [facility] Parasitic Exam, See Comment [address] [place] [address] [phone] Urinalysis Profile 04/03/2019 [facility] Urine Color Straw [address] [place] [address] [phone] Urine Appearance Clear Urine Specific [place] 1.009 Low 1.010-1.030 Urine pH 6.0 Normal [...] Cell Present Abnormal Absent Laboratory test 03/23/2019 [facility] Stool Culture SEE RESULT [address] [place] [address] [phone] Laboratory test 03/22/2019 [facility] Magnesium 1.7 mg/dL Low 1.9-[address] [place] [address] [phone] Comp Metabolic 03/19/2019 [facility] Sodium 139 mmol/L Normal 135-[address] [place] [address] [phone] Potassium 4.0 mmol/L Normal 3.5-5.0 Chloride 108 [...] Egfr Non- 83.7 >60 Egfr 101.3 >60 10 Laboratory test 03/19/2019 [facility] Troponin-I (TnI) 0.01 ng/ mL <0.04 [address] [place] [address] [phone] Urinalysis 03/19/2019 [facility] Urine Color Straw Profile [address] [place] [address] [phone] Urine Appearance Clear Urine Specific [place] 1.008 Low 1.010-1.030 Urine pH 8.0 Normal 5-9 Urine Urobilinogen Negative Negative Urine Ketones Negative Negative Urine Protein Negative Negative Urine Leukocytes Negative Negative Urine Blood Negative Negative Urine Nitrite Negative Negative Urine Bilirubin Negative Negative Urine Glucose Negative Negative Laboratory 03/19/2019 [facility] D Dimer 442 ng/mL High Less 12 test finding [address] Quantitative Than [place], [place] [id number] [phone] CBC Auto Diff 03/19/2019 [facility] White Blood 4.0 Normal 3.5 -10. [address] Count 10^3/uL 8 [place] [address] [phone] Red Blood Count 4.01 10^6/uL Normal 3.70-4.87 [...] Blood Cells % 0.0 Laboratory test 03/19/2019 [facility] Troponin-I 0.02 <0.04 [address] (TnI) ng/[place] [address] [phone] Laboratory test 03/11/2019 [facility] Erythrocyte Sed 24 mm/Hr Normal 0-[address] [place] [address] [phone] C Reactive Protein < 1.00 mg/L Normal <8.01 15 Comp Metabolic 03/11/2019 [facility] Sodium 139 mmol/L Normal 135-[address] [place] [address] [phone] Potassium 4.0 mmol/L Normal 3.5-5.0 Chloride 106 [...] Egfr Non- 95.7 >60 Egfr 115.8 >60 16 CBC Auto 03/11/2019 [facility] White Blood 3.3 10^3/uL Low 3.5 -10.[address] [place] [address] [phone] Red Blood Count 4.06 10^6/uL Normal 3.70-4.87 [...] % 0.0 Iron & Iron Binding 03/11/2019 [facility] Iron 103 g/dL Normal 50-[address] [place] [address] [phone] Unsaturated Iron Binding < 342 g/dL Total Iron Binding Capacity 357 g/dL Normal 250-450 Transferrin 255 mg/dL Normal 203-362 % Iron Saturation 29 % Normal 15-55 Laboratory test 03/11/2019 [facility] Ferritin 132.0 Normal 11 -307 [address] ng/[place] [address] [phone] Ua Routine 03/06/2019 [facility] Ua Specific 1.015 [place] Ua PH 5 Ua Color light yellow Ua Appera clear Ua WBC - Ua Protein - Ua Glucose norm Ua Ketones - Ua Bilirubin - Ua Urobilinogen - Ua Nitrite - Ua Occult Blood 250 Urine Culture And 03/06/2019 [facility] Urine Culture SEE RESULT 18, [address] [place] [address] [phone] Laboratory test 01/03/2019 [facility] Myeloperoxidase AB <0.2 U [address] [place] [address] [phone] Proteinase 3 <0.2 U 21 Urinalysis Profile 01/03/2019 [facility] Urine Color Yellow [address] [place] [address] [phone] Urine Appearance Cloudy Urine Specific [place] 1.013 Normal 1.010-1.030 Urine pH 8.0 Normal 5-9 Urine Urobilinogen Negative Negative Urine Ketones Negative Negative Urine Protein Negative Negative Urine Leukocytes Negative Negative Urine Blood Negative Negative * * Abnormal Negative 22 Urine Nitrite Negative Negative Urine Bilirubin Negative Negative Urine Glucose Negative Negative 1 Please check labs 2 days before follow up 2 Please check labs 2 days before follow up 3 Because ethnic data is not always [...] 5 Kidney failure <15 (or dialysis) 4 Please check labs today 5 Please check labs today 6 Please [...] 5 Kidney failure <15 (or dialysis) 8 SOURCE: STOOL PARASITIC EXAMINATION FINAL No parasites seen. Cryptosporidium, Cyclospora, and microsporidia are not readily detected by this method. Single negative specimen does not rule out parasitic infection. Test Performed by: [address] [address] Paper Spooler: Bairon Monterroso M.D. Ph.D.; CLIA# [id number] 9 SEE RESULT BELOW Name: ONEIDA REESE : [address]: Tracy King MD Acct: [id number] Unit: [id number] AGE: 53 Location: [facility] Re03/23/19 SEX: F Status: REG REF SPEC: [id number] LATASHA: 03/23/[address]: Tracy King MD REQ: [id number] RECD: 03/23/19 STATUS: COMP _ SOURCE: STOOL [...] . END OF REPORT DEPARTMENT OF PATHOLOGY, [address] [place] [address] Silvestre Collier M.D. Director [facility] # [id number] 10 Because ethnic data is not always [...] 5 Kidney failure <15 (or dialysis) 11 Troponin-I testing on Plasma Separator Tubes (PST) has a known false positive rate of 0.20-0.40%. All positive troponins reflex immediately to secondary confirmatory testing. Using the [employer] DxI 800 Access Immunoassay systems, the 99th percentile upper reference limit was demonstrated to be < 0.03 ng/mL. 12 Please note: The following may produce a false positive D Dimer test: - Rheumatoid factor greater than 60 IU/ml - Plasma hemoglobin greater than 0.05 gm/dl - Bilirubin greater than 50 mg/dl - Lipids greater than 1000 mg/dl - FDP greater than 20 ug/ml 13 Troponin-I testing on Plasma Separator Tubes (PST) has a known false positive rate of 0.20-0.40%. All positive troponins reflex immediately to secondary confirmatory testing. Using the [employer] DxI 800 Access Immunoassay systems, the 99th percentile upper reference limit was demonstrated to be < 0.03 ng/mL. 14 Please check labs today 15 Please check labs today 16 Because ethnic data is not always readily [...] 15-29 5 Kidney failure <15 (or dialysis) 17 Please check labs today 18 [id number] 19 SEE RESULT BELOW Name: ONEIDA REESE : [address]: Haylee Cordero MD Acct: [id number] Unit: [id number] AGE: 53 Location: [facility] Re03/06/19 SEX: F Status: REG REF SPEC: [id number] LATASHA: 03/06/[address] [facility] [address]: Haylee Cordero MD REQ: [id number] RECD: 03/07/19 STATUS: COMP _ SOURCE: URINE SPDESC: ORDERED: Urine Culture COMMENTS: [id number] Urine Source: Random Procedure Result Reported Site Urine Culture Final 03/08/19- 1217 ML No Growth (<1,000 CFU/mL) * ML - Main Lab . END OF REPORT DEPARTMENT OF PATHOLOGY, [address] [place] [address] Silvestre Collier M.D. Director [facility] # [id number] 20 REFERENCE VALUE <0.4 (Negative) Test Performed by: [facility] - [address] [address] 21 REFERENCE VALUE <0.4 (Negative) Test Performed by: [address] [address] 22 *Ascorbic acid is present which may interfere with detection of blood. Procedures Date Code Description Status 08/20/2018 606493451 Bone Mineral Density Test Completed 08/28/2017 [id number] Mammogram Completed 08/17/2017 [id number] Mammogram Completed 07/13/2017 [id number] Mammogram Completed 03/16/2017 [id number] Colonoscopy Completed 05/20/2016 [id number] Mammogram Completed 05/07/2015 [id number] Mammogram Completed 01/23/2013 [id number] Mammogram Completed 01/06/2012 [id number] Mammogram Completed Medical Devices Description No Information Available Encounters Type Date Location Provider Dx Diagnosis Office Visit 06/05/2019 [facility] Internal Rufino Allen, CLINICAL PROGRAM DIRECTOR R14.0 Abdominal 4:00p Medicine - Ccmob distension (gaseous) R11.0 Nausea R10.814 Left lower quadrant abdominal tenderness Office Visit 05/21/2019 11:00a Rheumatology Justyn Gabriel, M05.79 [facility] factor mult site w/o org/sys involv Z79.899 Other long term care social worker (current) drug therapy J01.90 Acute sinusitis, unspecified M79.672 Pain in left foot Office Visit 05/09/2019 4:00p [facility] Krystyna Hamptonner, Z01.419 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 [facility] MD exam (general) (routine) w/o abn findings Z85.3 Personal history of malignant neoplasm of breast G47.00 Insomnia, unspecified Office Visit 05/04/2019 11:00a Rheumatology Justyn Gabriel M05.79 [facility] w rheu factor mult site w/o org/sys involv D50.9 Iron deficiency anemia, unspecified Z79.899 Other long term care social worker (current) drug therapy M25.461 Effusion, right knee Office Visit 04/08/2019 11:50a [facility] Internal Haylee R19.7 Diarrhea, Medicine - Suad Cordero M.D. unspecified F51.02 Adjustment insomnia Office Visit 03/26/2019 2:20p [facility] Internal Haylee G47.00 Insomnia, Medicine - Shanta Cordero unspecified Ccmob N95.8 Other specified menopausal and perimenopausal disorders K29.00 Acute gastritis without bleeding Z79.899 Other correction (current) drug therapy Office Visit 03/22/2019 10:00a [facility] Dalia S. I10 Essential ( primary) Of [facility] Foster, N.P. hypertension I42.9 Cardiomyopathy, unspecified R00.2 Palpitations Office Visit 03/06/2019 2:20p [facility] Internal Haylee Gil, N30.00 Acute cystitis Medicine - Suad Womack without hematuria M25.512 Pain in left shoulder N95.8 Other specified menopausal and perimenopausal disorders Office Visit 02/14/2019 3:00p [facility] Dalia S. I10 Essential ( primary) Of [facility] Foster, N.P. hypertension I42.9 Cardiomyopathy, unspecified R00.2 Palpitations Office Visit 01/30/2019 4:20p Rheumatology Justyn Gabriel M05.79 [facility] w rheu factor mult site w/o org/sys involv Z79.899 Other correction (current) drug therapy D50.9 Iron deficiency anemia, unspecified Office Visit 01/22/2019 11:00a [facility] Roula Sandoval, N95.1 Menopausal and Clinic of [facility] N.P. female climacteric states N76.0 Acute vaginitis Z85.3 Personal history of malignant neoplasm of breast Z79.899 Other long term care social worker (current) drug therapy Office Visit 01/08/2019 1:00p [facility] Internal Haylee Z01.818 Encounter for other Medicine - Shanta Cordero preprocedural Ccmob examination S92.413B Disp fx of prox phalanx of unsp great toe, init for opn fx Z85.3 Personal history of malignant neoplasm of breast I10 Essential (primary) hypertension I42.9 Cardiomyopathy, unspecified D50.9 Iron deficiency anemia, unspecified M05.79 Rheu arthritis w rheu factor mult site w/o org/sys involv Assessments Date Code Description Provider 06/05/2019 R14.0 Abdominal distension (gaseous) Rufino Alejandro, CLINICAL PROGRAM DIRECTOR 06/05/2019 R11.0 Nausea Rufino Alejandro, CLINICAL PROGRAM DIRECTOR 06/05/2019 R10.814 Left lower quadrant abdominal tenderness Rufino Allen NP 05/21/2019 M05.79 Rheumatoid arthritis with rheumatoid factor Justyn Gabriel M.D. of [facility] 05/21/2019 Z79.899 Other correction (current) drug therapy Justyn Gabriel M.D. 05/21/2019 J01.90 Acute sinusitis, unspecified Justyn Gabriel M.D. 05/21/2019 M79.672 Pain in left foot Justyn Gabriel M.D. 05/09/2019 Z01.419 Encounter for gynecological examination Krystyna Ayala MD (general) (routine) without abnormal findings 05/09/2019 Z85.3 Personal history of malignant neoplasm of Krystyna Ayala MD breast 05/09/2019 G47.00 Insomnia, unspecified Krystyna Ayala MD 05/04/2019 M05.79 Rheumatoid arthritis with rheumatoid factor Justyn Gabriel M.D. of [facility] 05/04/2019 D50.9 Iron deficiency anemia, unspecified Justyn Gabriel M.D. 05/04/2019 Z79.899 Other correction (current) drug therapy Justyn Gabriel M.D. 05/04/2019 M25.461 Effusion, right knee Justyn Gabriel M.D. 04/08/2019 R19.7 Diarrhea, unspecified Haylee Cordero M.D. 04/08/2019 F51.02 Adjustment insomnia Haylee Cordero M.D. 03/26/2019 G47.00 Insomnia, lanaified Haylee Cordero M.D. 03/26/2019 N95.8 Other specified menopausal and Haylee Cordero M.D. perimenopausal disorders 03/26/2019 K29.00 Acute gastritis without bleeding Haylee Cordero M.D. 03/26/2019 Z79.899 Other long term care social worker (current) drug therapy Haylee Cordero M.D. 03/22/2019 I10 Essential (primary) hypertension Dalia Bragg, N.P. 03/22/2019 I42.9 Cardiomyopathy, unspecified Dalia Bragg, N.P. 03/22/2019 R00.2 Palpitations Dalia Bragg N.P. 03/06/2019 N30.00 Acute cystitis without hematuria Haylee Cordero M.D. 03/06/2019 M25.512 Pain in left shoulder Haylee Cordero M.D. 03/06/2019 N95.8 Other specified menopausal and Haylee Cordero M.D. perimenopausal disorders 02/14/2019 I10 Essential (primary) hypertension Dalia SSelina Bragg, N.P. 02/14/2019 I42.9 Cardiomyopathy, unspecified Dalia SSelina Bragg, N.P. 02/14/2019 R00.2 Palpitations Dalia Bragg, N.P. 01/30/2019 M05.79 Rheumatoid arthritis with rheumatoid factor Justyn Gabriel M.D. of [facility] 01/30/2019 Z79.899 Other long term care social worker (current) drug therapy Justyn Gabriel M.D. 01/30/2019 D50.9 Iron deficiency anemia, unspecified Justyn Gabriel M.D. 01/22/2019 N95.1 Menopausal and female climacteric states Roula Sandoval, N.P. 01/22/2019 N76.0 Acute vaginitis Roula Sandoval, N.P. 01/22/2019 Z85.3 Personal history of malignant neoplasm of Roula Sandoval N.P. breast 01/22/2019 Z79.899 Other long term care social worker (current) drug therapy Roula Sandoval N.P. 01/08/2019 Z01.818 Encounter for other preprocedural Haylee Cordero M.D. examination 01/08/2019 S92.413B Displaced fracture of proximal phalanx of Haylee Cordero M.D. unspecified great toe, initial encounter for open fracture 01/08/2019 Z85.3 Personal history of malignant neoplasm of Haylee Cordero M.D. breast 01/08/2019 I10 Essential (primary) hypertension Haylee Cordero M.D. 01/08/2019 I42.9 Cardiomyopathy, unspecified Haylee Cordero M.D. 01/08/2019 D50.9 Iron deficiency anemia, unspecified Haylee Cordero M.D. 01/08/2019 M05.79 Rheumatoid arthritis with rheumatoid factor Haylee Cordero M.D. of multiple site Plan of Treatment Future Appointment(s):07/02/2019 3:20 pm - Justyn Gabriel M.D. at [facility] Functional Status Description No Information Available Mental Status Description No Information Available Referrals Refer to Dr Reason for Referral Status Appt Date Glendy Freire, YOMAIRA-Deya Sent [address], [place] [phone]
--- OUTSIDE RECORDS SUMMARY | 2019-08-14 09:02 | XMS REPORT | Continuity of Care Document ---
:1965 External Reference #:[id number] Author Name Justyn Gabriel M.D. (transmitted by agent of provider Yesika Mccray) Address [address] [place] [id number] Care Team Providers Name Role Phone Melva Sue M.D. - Family Medicine Care Team Information Supplier Quality Engineer [phone] Justyn Gabriel MD - Rheumatology Care Team Information Supplier Quality Engineer Problems Active Problems Provider Date Cardiovascular Disease Other Hyalee Cordero M.D. 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 Onset: 2017 breast Note: will undergo mastectomy /sentinel node biopsy [facility] [place] [facility] [place] T1cNI stage 2 Essential hypertension Amira Turner [...] Unknown Never Smoked Cigarettes Smoking Status Reviewed: 07/03/19 Never Smoked Cigarettes ETOH Use Never used [...] Date Provider Prednisone take 3 tabs daily 90tabs M06.4 Justyn Gabriel, 07/03/2019 2.5mg M.D. Tablets Omeprazole 1 by mouth once 30caps R14.0 Rufino Allen NP 06/05/2019 20mg daily Capsules Slow-Mag take 1 tab 2x daily 60tabs Dalia Bragg, 04/18/2019 71.5-119mg N.P. Tablets Paroxetine HCL not taking due to 30tabs N95.8 Krystyna Ayala, 03/26/2019 10mg side effects Tablets Amlodipine Besylate 1 by mouth every [...] every day M.D. 50mcg/Act Suspension Ferrous Gluconate Take 1 Tablet By 60tabs D53.9 Britt Fitch, 11/28/2011 Mouth Two Times N.P. 324(38Fe) mg Tablets Daily Multivitamins 1 by mouth every Unknown day Capsules Carvedilol take 1 tablet by 180tabs I42.9 Qutaybeh SSelina 25mg mouth twice a day Angelina, Shanta Tablets I10 Tamoxifen Citrate Take 1 Tablet By Unknown 10mg Mouth Every Day Tablets Lisinopril 1 by mouth every 90tabs I42.9 Dalia Bragg, 40mg Tablets day N.P. I10 History Medications Azithromycin 2 tabs by mouth on 6tabs Justyn Gabriel, 05/21/2019 - 250mg day 1; 1 tab by M.DSelina 06/04/2019 Tablets mouth every day on days 2-5 Plaquenil 1 by mouth every 45tabs M05.79 Justyn Gabriel, 05/21/2019 - 200mg Tablets day for 1 week then M.D. 05/21/2019 2 by mouth daily ongoing Prednisone Please take 4 tabs 60tabs M06.4 Justyn Garbiel, 05/15/2019 - 10mg Tablets by mouth daily for M.D. 07/03/2019 2 days then 3 tabs daily for 2 days then 2 tabs daily for 2 days then 1 tab daily ongoing Omeprazole 1 by mouth every 30caps K29.00 Haylee 03/26/2019 - 20mg day Shanta Cordero 06/04/2019 [...] 1 by mouth twice a 14caps N30.00 [facility] 03/06/2019 - Macrocrystal day X 7 days Shanta Cordero 03/26/2019 100mg Capsules Venlafaxine HCL once a day 30tabs N95.8 [facility] 03/06/2019 - 37.5mg Shanta Cordero 03/26/2019 Tablets [...] CPT Code Status Date Vaccine Lot # [id number] Given 08/14/2018 Pneumococcal Conjugate Vaccine 13 Valent For [id number] Intramuscular Use 85949 Given 02/05/2018 Influenza Virus Vaccine, Quadrivalent, Split, Preservative Free 20946 Given 05/03/2016 Influ Virus Vaccine, Quadrivalent, Split Virus, [place] [id number] [address] Given 04/15/2015 Influenza Virus Vaccine, Quadrivalent, Split, [id number] Preservative Free [id number] Given 04/17/2012 Fluvirin Im 3Yrs And Older [id number] 75475 Given 01/02/2012 Tdap - Tetanus/Diptheria/Acellular Pertussis [id number] Vital Signs Date Vital Result Comment 07/03/2019 2:55pm Height 70 inches 5'10" Weight 194.38 lb Heart Rate 82 /min BP Systolic Sitting 132 mmHg BP Diastolic Sitting 78 mmHg Body Temperature 96.6 F Pain Level 0 O2 % BldC Oximetry 98 % BMI (Body Mass Index) 27.9 kg/m2 06/25/2019 10:54am Height 70 inches 5'10" Weight 197.00 lb Heart Rate 72 /min BP Systolic 138 mmHg BP Diastolic 96 mmHg Respiratory Rate 12 /min Body Temperature 97.3 F Pain Level 5 BMI (Body Mass Index) 28.3 kg/m2 Results Test Acquired Date Facility Test Result H/L Range Note Laboratory test 07/02/2019 [facility] Blood Urea 19 mg/dL Normal 6-[address] [place] [address] [phone] Creatinine 07/02/2019 [facility] Creatinine 0.66 mg/dL Normal 0.51-0.[address] [place] [address] [phone] Egfr Non- 93.7 >60 Egfr 113.4 >60 1 Laboratory test 05/23/2019 [facility] Erythrocyte Sed 17 mm/Hr Normal 0-29 [address] [place] [address] [phone] C Reactive Protein 10.14 mg/L High <8.01 3 CBC Auto 05/23/2019 [facility] White Blood 5.9 10^3/uL Normal 3.5-10.[address] [place] [address] [phone] Red Blood Count 4.03 10^6/uL Normal 3.70-4.87 [...] Blood Cells % 0.0 Comp Metabolic 05/23/2019 [facility] Sodium 140 mmol/L Normal 135-[address] [place] [id number] [phone] Potassium 3.6 mmol/L Normal 3.5-5.0 Chloride 105 [...] Egfr Non- 87.9 >60 Egfr 106.3 >60 4 Laboratory test 05/04/2019 [facility] Erythrocyte Sed 28 mm/Hr Normal 0-29 5, [address] [place] [address] [phone] C Reactive Protein 1.02 mg/L Normal <8.01 7 CBC Auto 05/04/2019 [facility] White Blood 3.8 10^3/uL Normal 3.5-10.[address] [place] [address] [phone] Red Blood Count 4.10 10^6/uL Normal 3.70-4.87 [...] Blood Cells % 0.1 Comp Metabolic 05/04/2019 [facility] Sodium 139 mmol/L Normal 135-[address] [place] [address] [phone] Potassium 4.1 mmol/L Normal 3.5-5.0 Chloride 105 [...] Egfr Non- 82.4 >60 Egfr 99.7 >60 8 Ova & Parasites 04/12/2019 [facility] Parasitic Exam, See Comment [address] [place] [address] [phone] Urinalysis Profile 04/03/2019 [facility] Urine Color Straw [address] [place] [address] [phone] Urine Appearance Clear Urine Specific Boyers 1.009 Low 1.010-1.030 Urine pH 6.0 Normal [...] Cell Present Abnormal Absent Laboratory test 03/23/2019 [facility] Stool Culture SEE RESULT [address] [place] [address] [phone] Laboratory test 03/22/2019 [facility] Magnesium 1.7 mg/dL Low 1.9-[address] [place] [address] [phone] Comp Metabolic 03/19/2019 [facility] Sodium 139 mmol/L Normal 135-[address] [place] [address] [phone] Potassium 4.0 mmol/L Normal 3.5-5.0 Chloride 108 [...] Egfr Non- 83.7 >60 Egfr 101.3 >60 11 Laboratory test 03/19/2019 [facility] Troponin-I (TnI) 0.01 ng/ mL <0.04 12 finding [address] [place] [address] [phone] Urinalysis 03/19/2019 [facility] Urine Color Straw Profile [address] [place] [address] [phone] Urine Appearance Clear Urine Specific Boyers 1.008 Low 1.010-1.030 Urine pH 8.0 Normal 5-9 Urine Urobilinogen Negative Negative Urine Ketones Negative Negative Urine Protein Negative Negative Urine Leukocytes Negative Negative Urine Blood Negative Negative Urine Nitrite Negative Negative Urine Bilirubin Negative Negative Urine Glucose Negative Negative Laboratory 03/19/2019 [facility] D Dimer 442 ng/mL High Less 13 test finding [address] Quantitative Than [place], [place] [phone] CBC Auto Diff 03/19/2019 [facility] White Blood 4.0 Normal 3.5 -10. [address] DR[address] Count 10^3/uL 8 [place], [place] [id number] [phone] Red Blood Count 4.01 10^6/uL Normal 3.70-4.87 [...] Blood Cells % 0.0 Laboratory test 03/19/2019 [facility] Troponin-I 0.02 <0.04 [address] (TnI) ng/[place] [address] [phone] Laboratory test 03/11/2019 [facility] Erythrocyte Sed 24 mm/Hr Normal 0-29 [address] [place] [address] [phone] C Reactive Protein < 1.00 mg/L Normal <8.01 16 Comp Metabolic 03/11/2019 [facility] Sodium 139 mmol/L Normal 135-[address] [place] [address] [phone] Potassium 4.0 mmol/L Normal 3.5-5.0 Chloride 106 [...] Egfr Non- 95.7 >60 Egfr 115.8 >60 17 CBC Auto 03/11/2019 [facility] White Blood 3.3 10^3/uL Low 3.5 -10.[address] [place] [address] [phone] Red Blood Count 4.06 10^6/uL Normal 3.70-4.87 [...] % 0.0 Iron & Iron Binding 03/11/2019 [facility] Iron 103 g/dL Normal 50-[address] [place] [address] [phone] Unsaturated Iron Binding < 342 g/dL Total Iron Binding Capacity 357 g/dL Normal 250-450 Transferrin 255 mg/dL Normal 203-362 % Iron Saturation 29 % Normal 15-55 Laboratory test 03/11/2019 [facility] Ferritin 132.0 Normal 11 -307 [address] ng/[place] [address] [phone] Ua Routine 03/06/2019 [facility] Ua Specific 1.015 Boyers Ua PH 5 Ua Color light yellow Ua Appera clear Ua WBC - Ua Protein - Ua Glucose norm Ua Ketones - Ua Bilirubin - Ua Urobilinogen - Ua Nitrite - Ua Occult Blood 250 Urine Culture And 03/06/2019 [facility] Urine Culture SEE RESULT 19, [address] [place], [place] [id number] [phone] Laboratory test 01/03/2019 [facility] Myeloperoxidase AB <0.2 U [address] [place] [address] [phone] Proteinase 3 <0.2 U 22 Urinalysis Profile 01/03/2019 [facility] Urine Color Yellow [address] [place] [address] [phone] Urine Appearance Cloudy Urine Specific Boyers 1.013 Normal 1.010-1.030 Urine pH 8.0 Normal 5-9 Urine Urobilinogen Negative Negative Urine Ketones Negative Negative Urine Protein Negative Negative Urine Leukocytes Negative Negative Urine Blood Negative Negative * * Abnormal Negative 23 Urine Nitrite Negative Negative Urine Bilirubin Negative Negative Urine Glucose Negative Negative 1 Because ethnic data is not always readily [...] 15-29 5 Kidney failure <15 (or dialysis) 2 Please check labs 2 days before follow up 3 Please check labs 2 days before follow up 4 Because ethnic data is not always [...] today 6 Please check labs today 7 Please check labs today 8 Because ethnic data is not always [...] 5 Kidney failure <15 (or dialysis) 9 SOURCE: STOOL PARASITIC EXAMINATION FINAL No parasites seen. Cryptosporidium, Cyclospora, and microsporidia are not readily detected by this method. Single negative specimen does not rule out parasitic infection. Test Performed by: [address] [address] [employer]ist: Bairon Monterroso M.D. Ph.D.; CLIA# [id number] 10 SEE RESULT BELOW Name: ONEIDA REESE : [address]: Tracy King MD Acct: [id number] Unit: [id number] AGE: 53 Location: [facility] Re03/23/19 SEX: F Status: REG REF SPEC: [id number] LATASHA: 03/23/[address]: Tracy King MD REQ: [id number] RECD: 03/23/19 STATUS: COMP _ SOURCE: STOOL [...] . END OF REPORT DEPARTMENT OF PATHOLOGY, [address] [place] [address] Silvestre Collier M.D. Director [facility] # [id number] 11 Because ethnic data is not always [...] 5 Kidney failure <15 (or dialysis) 12 Troponin-I testing on Plasma Separator Tubes (PST) has a known false positive rate of 0.20-0.40%. All positive troponins reflex immediately to secondary confirmatory testing. Using the PerceptiMed DxI 800 Access Immunoassay systems, the 99th percentile upper reference limit was demonstrated to be < 0.03 ng/mL. 13 Please note: The following may produce a false positive D Dimer test: - Rheumatoid factor greater than 60 IU/ml - Plasma hemoglobin greater than 0.05 gm/dl - Bilirubin greater than 50 mg/dl - Lipids greater than 1000 mg/dl - FDP greater than 20 ug/ml 14 Troponin-I testing on Plasma Separator Tubes (PST) has a known false positive rate of 0.20-0.40%. All positive troponins reflex immediately to secondary confirmatory testing. Using the PerceptiMed DxI 800 Access Immunoassay systems, the 99th percentile upper reference limit was demonstrated to be < 0.03 ng/mL. 15 Please check labs today 16 Please check labs today 17 Because ethnic data is not always readily [...] 15-29 5 Kidney failure <15 (or dialysis) 18 Please check labs today 19 [id number] 20 SEE RESULT BELOW Name: MADHAVONEIDA : [address]: Haylee Cordero MD Acct: [id number] Unit: [id number] AGE: 53 Location: [facility] Re03/06/19 SEX: F Status: REG REF SPEC: [id number] LATASHA: 03/06/[address] [facility] [address]: Haylee Cordero MD REQ: [id number] RECD: 03/07/19 STATUS: COMP _ SOURCE: URINE [facility]: ORDERED: Urine Culture COMMENTS: [id number] Urine Source: Random Procedure Result Reported Site Urine Culture Final 03/08/19- 1217 ML No Growth (<1,000 CFU/mL) * ML - Main Lab . END OF REPORT DEPARTMENT OF PATHOLOGY, [address] [place] [address] Silvestre Collier M.D. Director [facility] # [id number] 21 REFERENCE VALUE <0.4 (Negative) Test Performed by: [facility] - [address] [address] 22 REFERENCE VALUE <0.4 (Negative) Test Performed by: [facility] - [address] [address] 23 *Ascorbic acid is present which may interfere with detection of blood. Procedures Date Code Description Status 08/20/2018 [id number] Bone Mineral Density Test Completed 08/28/2017 [id number] Mammogram Completed 08/17/2017 [id number] Mammogram Completed 07/13/2017 [id number] Mammogram Completed 03/16/2017 [id number] Colonoscopy Completed 05/20/2016 [id number] Mammogram Completed 05/07/2015 [id number] Mammogram Completed 01/23/2013 [id number] Mammogram Completed 01/06/2012 [id number] Mammogram Completed Medical Devices Description No Information Available Encounters Type Date Location Provider Dx Diagnosis Office Visit 07/03/2019 Rheumatology Justyn Gabriel M05.79 Rheu arthritis w 2:[facility]p [facility] rheu factor mulmillie site w/o org/sys involv Z79.899 Other supervisor intermediates (current) drug therapy Office Visit 06/05/2019 4:00p [facility] Rufino Alejandro, R14.0 Abdominal Medicine - [facility] PAYABLE PROCESSOR distension (gaseous) R11.0 Nausea R10.814 Left lower quadrant abdominal tenderness Office Visit 05/21/2019 11:00a Rheumatology Justyn Gabriel M05.79 Rhe[facility] w rheu factor mulmillie site w/o org/sys involv Z79.899 Other supervisor intermediates (current) drug therapy J01.90 Acute sinusitis, unspecified M79.672 Pain in left foot Office Visit 05/09/2019 4:00p [facility] Krystyna Ayala, Z01.419 Encntr for manager of investigations [facility] MD exam (general) (routine) w/o abn findings Z85.3 Personal history of malignant neoplasm of breast G47.00 Insomnia, unspecified Office Visit 05/04/2019 11:00a Rheumatology Justyn Gabriel M05.79 Rhe[facility]. w rheu factor mult site w/o org/sys involv D50.9 Iron deficiency anemia, unspecified Z79.899 Other alf (current) drug therapy M25.461 Effusion, right knee Office Visit 04/08/2019 11:50a [facility] Internal Haylee R19.7 Diarrhea, Jamie Cordero M.D. unspecified F51.02 Adjustment insomnia Office Visit 03/26/2019 2:20p [facility] Internal Haylee G47.00 Insomnia, Jamie Cordero M.D. unspecified Ccmob N95.8 Other specified menopausal and perimenopausal disorders K29.00 Acute gastritis without bleeding Z79.899 Other alf (current) drug therapy Office Visit 03/22/2019 10:00a [facility] Dalia S. I10 Essential ( primary) [facility] Foster, N.P. hypertension I42.9 Cardiomyopathy, unspecified R00.2 Palpitations Office Visit 03/06/2019 2:20p [facility] Internal Haylee Gil, N30.00 Acute cystitis Medicine Kacy Borjas M.D. without hematuria M25.512 Pain in left shoulder N95.8 Other specified menopausal and perimenopausal disorders Office Visit 02/14/2019 3:00p [facility] Dalia S. I10 Essential ( primary) [facility] Foster, N.P. hypertension I42.9 Cardiomyopathy, unspecified R00.2 Palpitations Office Visit 01/30/2019 4:20p Rheumatology Justyn Gabriel, M05.79 Rheu arthritis [facility] Shanta w rheu factor mult site w/o org/sys involv Z79.899 Other alf (current) drug therapy D50.9 Iron deficiency anemia, unspecified Office Visit 01/22/2019 11:00a [facility] Roula Sandoval, N95.1 Menopausal and [facility] N.P. female climacteric states N76.0 Acute vaginitis Z85.3 Personal history of malignant neoplasm of breast Z79.899 Other alf (current) drug therapy Office Visit 01/08/2019 1:00p [facility] Internal Haylee Z01.818 Encounter for other Jamie Cordero M.D. preprocedural [facility] examination S92.413B Disp fx of prox phalanx of unsp great toe, init for opn fx Z85.3 Personal history of malignant neoplasm of breast I10 Essential (primary) hypertension I42.9 Cardiomyopathy, unspecified D50.9 Iron deficiency anemia, unspecified M05.79 Rheu arthritis w rheu factor mult site w/o org/sys involv Assessments Date Code Description Provider 07/03/2019 M05.79 Rheumatoid arthritis with rheumatoid factor Justyn Gabriel M.D. [facility] 07/03/2019 Z79.899 Other alf (current) drug therapy Justyn Gabriel M.D. 06/05/2019 R14.0 Abdominal distension (gaseous) Rufino Alejandro, PAYABLE PROCESSOR 06/05/2019 R11.0 Nausea Rufino Allen PAYABLE PROCESSOR 06/05/2019 R10.814 Left lower quadrant abdominal tenderness Rufino Allen NP 05/21/2019 M05.79 Rheumatoid arthritis with rheumatoid factor Justyn Gabriel M.D. [facility] 05/21/2019 Z79.899 Other supervisor intermediates (current) drug therapy Justyn Gabriel M.D. 05/21/2019 [...] with rheumatoid factor Justyn Gabriel M.D. [facility] 05/04/2019 D50.9 Iron deficiency anemia, unspecified Justyn Gabriel M.D. 05/04/2019 Z79.899 Other alf (current) drug therapy Justyn Gabriel M.D. 05/04/2019 M25.461 Effusion, right knee Justyn Gabriel M.D. 04/08/2019 R19.7 Diarrhea, unspecified Haylee Cordero M.D. 04/08/2019 F51.02 Adjustment insomnia Haylee Cordero M.D. 03/26/2019 G47.00 Insomnia, unspecified Haylee Cordero M.D. 03/26/2019 N95.8 Other specified menopausal and Haylee Cordero M.D. perimenopausal disorders 03/26/2019 K29.00 Acute gastritis without bleeding Haylee Cordero M.D. 03/26/2019 Z79.899 Other alf (current) drug therapy Haylee Cordero M.D. 03/22/2019 [...] with rheumatoid factor Justyn Gabriel M.D. [facility] 01/30/2019 Z79.899 Other supervisor intermediates (current) drug therapy Justyn Gabriel M.D. 01/30/2019 D50.9 Iron deficiency anemia, unspecified Justyn Gabriel M.D. 01/22/2019 N95.1 Menopausal and female climacteric states Andrews FrancisP. 01/22/2019 N76.0 Acute vaginitis Martín Francis.P. 01/22/2019 Z85.3 Personal history of malignant neoplasm of Martín Francis.Liz breast 01/22/2019 Z79.899 Other supervisor intermediates (current) drug therapy Roula Sandoval N.P. 01/08/2019 [...] of multiple site Plan of Treatment Future Appointment(s):09/02/2019 3:40 pm - Justyn Gabriel M.D. at [facility]07/03/2019 - Justyn Gabriel M.D.M05.79 Rheumatoid arthritis with rheumatoid factor of multiple siteZ79.899 Other alf (current) drug therapyFollow up:Follow up in 2 months or sooner if needed Functional Status Description No Information Available Mental Status Description No Information Available Referrals Refer to Reason for Referral Status Appt Date [facility] Created [address] [place] [address] [phone] Glendy Freire FNP-C Sent [address], [place] [id number] [phone]
--- OUTSIDE RECORDS SUMMARY | 2019-08-14 09:02 | XMS REPORT | Continuity of Care Document ---
:1965 External Reference #:[id number] Author Name Mushtaq Anderson MD Address [address] [place] [id number] Care Team Providers Name Role Phone Rufino Allen FNP Care Team Information Creosoting Engineer [phone] Problems Active Problems Provider Date Flatulence, eructation and gas pain Kelsea Mcdonald PA-C Onset: 2019 Anemia Kelsea Mcdonald PA-C Onset: 07/25/2019 Digestive symptom Kelsea Mcdonald PA-C Onset: 07/25/2019 Dysphagia Kelsea Mcdonald PA-C Onset: 07/25/2019 Gastroesophageal reflux disease Kelsea Mcdonald PA-C Onset: 07/25/2019 Generalized abdominal pain Kelsea Mcdonald PA-C Onset: 07/25/2019 Essential hypertension Kelsea Mcdonald PA-C Onset: 07/30/2019 Social History Type Date Description Comments Sex Unknown Tobacco Use Start: Unknown Patient has never smoked Smoking Status Reviewed: 07/25/19 Patient has never smoked Allergies, Adverse Reactions, Alerts Active Allergies Reaction Severity Comments Date Shrimp Contact dermatitis, anaphylaxis 07/25/2019 Venlafaxine palpitations 07/25/2019 Medications Active Medications SIG Qnty Indications Ordering Date Provider Potassium Chloride Take 1 Tablet By Unknown Albertina ER Mouth Every Day 20Meq Tablets ER Methotrexate Take 9 Tablets By Unknown 2.5mg Mouth One Time Tablets Weekly On Fridays (Avoid With Antibiotics) Valacyclovir HCL Take 1 Tablet By Unknown 500mg Mouth Two Times Tablets Daily For 3 Days as Needed For Exacerbation Tamoxifen Citrate Maite Samuel MD 20mg Tablets Amlodipine Besylate Dalia Bragg,TECHNICAL ANALYST 10mg Tablets Zolpidem Tartrate Take 1 Tablet By Unknown 5mg Mouth AT Bedtime -- Tablets Maximum Daily Dose Of 1 Per Day Folic Acid Take 1 Tablet By Unknown 1mg Tablets Mouth Every Day Ferrous Gluconate Britt Fitch,TECHNICAL ANALYST 324(38Fe) mg Tablets Carvedilol Take 1 Tablet By Unknown 25mg Tablets Mouth Two Times Daily Lisinopril Take 1 Tablet By Unknown 40mg Tablets Mouth Every Day Slow-Mag YemiDalia,TECHNICAL ANALYST 71.5-119mg Tablets DR Paroxetine HCL Take 1 Tablet By Unknown 10mg Mouth Every Day Tablets Prednisone Take 4 Tablets By Unknown 10mg Tablets Mouth Daily For 2 Days, Then Take 3 Tablets Daily For 2 Days, Then Take 2 Tablets Daily For 2 Days, Then Take 1 Tablet Elizabeth Vitamin D3 1 by mouth every day Unknown 25mcg (1000 Ut) Capsules Red Yeast Rice Unknown Extract 600mg Capsules Fluticasone Unknown Propionate 50mcg/Act Suspension Immunizations Description No Information Available Vital Signs Date Vital Result Comment 07/25/2019 2:23pm Height 70 inches 5'10" Weight 190.00 lb BP Systolic 143 mmHg BP Diastolic 96 mmHg Heart Rate 80 /min BMI (Body Mass Index) 27.3 kg/m2 Results Test Acquired Date Facility Test Result H/L Range Note Laboratory test 08/09/2019 [facility] [place] Clotest SEE RESULT 1 finding BELOW Laboratory test 07/27/2019 [facility] [place] Fecal Lactoferrin SEE RESULT 2 finding (Stool WBC) BELOW 1 SEE RESULT BELOW Name: ONEIDA REESE : [address]: Mushtaq Anderson MD Acct: [id number] Unit: [id number] AGE: 54 Location: [facility] Re08/09/19 SEX: F Status: REG REF SPEC: [id number] LATASHA: 08/09/19-[address] [facility] [address]: Mushtaq Anderson MD REQ: [id number] RECD: 08/09/19 STATUS: ISACC WATTERS DR: Haylee Cordero MD _ SOURCE: GAS ANTRUM SPDESC: ORDERED: Clotest Procedure Result Reported Site Clotest Final 08/10/19- 730 ML Clotest Negative * ML - Main Lab . END OF REPORT DEPARTMENT OF PATHOLOGY, [address] [place] [address] Silvestre Collier M.D. Director [facility] # [id number] SEE RESULT BELOW Name: ONEIDA REESE : [address]: Mushtaq Anderson MD Acct: [id number] Unit: [id number] AGE: 54 Location: ENDO Re08/09/19 SEX: F Status: REG REF SPEC: [id number] LATASHA: 08/09/19-[address] [facility] [address]: Mushtaq Anderson MD REQ: [id number] RECD: 08/09/19-141 STATUS: ISACC WATTERS DR: Haylee Cordero MD _ SOURCE: GAS ANTRUM SPDESC: ORDERED: Clotest Procedure Result Reported Site Clotest Final 08/10/19- 0731 ML Clotest Negative * ML - Main Lab . END OF REPORT DEPARTMENT OF PATHOLOGY, [address] [place] [address] Silvestre Collier M.D. Director [facility] # [id number] 2 SEE RESULT BELOW Name: ONEIDA REESE Harpreet : [address]: Kelsea SANTIAGO Acct: [id number] Unit: [id number] AGE: 54 Location: [facility] Re07/27/19 SEX: F Status: REG REF SPEC: [id number] LATASHA: 07/27/19-[address]: Kelsea SANTIAGO REQ: [id number] RECD: 07/27/19-1220 STATUS: COMP _ SOURCE: STOOL SPDESC: ORDERED: Fecal Lactoferr Procedure Result Reported Site Stool Specimen Description Final 07/27/19- 1350 ML Stool Color Brown Stool Form Semi-formed Stool Consistency Soft Fecal Lactoferrin (Stool WBC) Final 07/27/19- 1350 ML Fecal Lactoferrin Negative by Immunoassay TEST LIMITATIONS: Assay detects elevated levels of lactoferrin released from fecal leukocytes as a marker of intestinal inflammation. The test may not be appropriate in immunocompromised persons. Fecal samples from breast fed infants should not be used with this assay. * ML - Main Lab . END OF REPORT DEPARTMENT OF PATHOLOGY, [address] [place] [address] Silvestre Collier M.D. Director [facility] # [id number] Procedures Description No Information Available Medical Devices Description No Information Available Encounters Description No Information Available Assessments Date Code Description Provider 07/25/2019 R10.84 Generalized abdominal pain Kelsea Mcdonald PA-C 07/25/2019 K21.9 Gastro-esophageal reflux disease without Kelsea Mcdonald PA-C esophagitis 07/25/2019 R13.10 Dysphagia, unspecified Kelsea Mcdonald PA-C 07/25/2019 R19.4 Change in bowel habit Kelsea Mcdonald PA-C 07/25/2019 D64.9 Anemia, unspecified MINESH BarronC 07/25/2019 R14.0 Abdominal distension (gaseous) Kelsea Mcdonald PA-C Plan of Treatment No Information Available Functional Status Description No Information Available Mental Status Description No Information Available Referrals Description No Information Available
--- OUTSIDE RECORDS SUMMARY | 2019-08-14 09:02 | XMS REPORT | Continuity of Care Document ---
:1965 External Reference #:[id number] Author Name Kelsea Mcdonald PA-C Address [address] [place], [place] [address] Care Team Providers Name Role Phone Rufino Allen FNP Care Team Information Client Strategist [phone] Problems Active Problems Provider Date Flatulence, eructation and gas pain eKlsea Mcdonald PA-C Onset: 2019 Anemia Kelsea Mcdonald [...] Samuel MD 20mg Tablets Amlodipine Besylate Dalia Bragg,GRICELDA 10mg Tablets Zolpidem Tartrate Take 1 Tablet By Unknown 5mg Mouth AT Bedtime -- Tablets Maximum Daily Dose Of 1 Per Day Folic Acid Take 1 Tablet By Unknown 1mg Tablets Mouth Every Day Ferrous Gluconate Britt Fitch,CANTEEN OPERATOR 324(38Fe) mg Tablets Carvedilol Take 1 Tablet By Unknown 25mg Tablets Mouth Two Times Daily Lisinopril Take 1 Tablet By Unknown 40mg Tablets Mouth Every Day Slow-Mag Dalia Bragg,CANTEEN OPERATOR 71.5-119mg Tablets DR Paroxetine HCL Take 1 [...] BMI (Body Mass Index) 27.3 kg/m2 Results Description No Information Available Procedures Description No Information Available Medical Devices Description No Information Available Encounters Description No Information Available Assessments Date Code Description Provider 07/25/2019 R10.84 Generalized abdominal pain Kelsea Mcdonald PA-C 07/25/2019 K21.9 Gastro-esophageal reflux disease without Kelsea Mcdonald PA-C esophagitis 07/25/2019 R13.10 Dysphagia, unspecified Kelsea Mcdonald PA-C 07/25/2019 R19.4 Change in bowel habit Kelsea Mcdonald PA-C 07/25/2019 D64.9 Anemia, unspecified Kelsea Mcdonald PA-C 07/25/2019 R14.0 Abdominal distension (gaseous) Kelsea Mcdonald PA-C Plan of Treatment Future Appointment(s):08/09/2019 11:45 am - Mushtaq Anderson MD at [facility]07/25/2019 - JACK Barron-CR10.84 Generalized abdominal painK21.9 Gastro-esophageal reflux disease without zyrwokzrjvmA98.10 Dysphagia, rbhjzhgcoenZ76.4 Change in bowel habitNew Labs: Fecal Lactoferrin (Stool WBC), Ordered: 07/25/19D64.9 Anemia, kfmlrivgrcrB48.0 Abdominal distension (gaseous) Functional Status Description No Information Available Mental Status Description No Information Available Referrals Description No Information Available
--- OUTSIDE RECORDS SUMMARY | 2019-08-14 09:02 | XMS REPORT | Continuity of Care Document ---
:1965 External Reference #:[id number] Author Name Krystyna Ayala MD (transmitted by agent of provider Lita Burnett) Address [address] [place] [address] Care Team Providers Name Role Phone Melva Sue M.D. - Family Medicine Care Team Information Owner Consulting Engineer [phone] Justyn Gabriel MD - Rheumatology Care Team Information Owner Consulting Engineer [phone] Problems Active Problems Provider Date Cardiovascular Disease Other Haylee Cordero M.D. 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 Onset: 2017 breast Note: will undergo mastectomy /sentinel node biopsy [facility] [place] T1cNI stage 2 Essential hypertension Amira Turner [...] Unknown Never Smoked Cigarettes Smoking Status Reviewed: 07/11/19 Never Smoked Cigarettes ETOH Use Never used [...] Ordering Date Provider Prednisone take 3 tabs 90tabs M06.4 Justyn Gabriel, 07/03/2019 2.5mg Tablets daily M.D. Omeprazole 1 by mouth once 30caps R14.0 Rufino Allen NP 06/05/2019 20mg Capsules daily Slow-Mag take 1 tab 2x 60tabs Dalia Bragg, 04/18/2019 71.5-119mg daily N.P. Tablets Paroxetine HCL not taking due 30tabs N95.8 Krystyna Ayala, 03/26/2019 10mg to side effects MD Tablets Amlodipine Besylate 1 by mouth every 90tabs I10 Dalia Bragg, 02/14/2019 10mg day N.P. Tablets Zolpidem Tartrate 1 at bedtime 30tabs Rufino Allen NP 01/07/2019 5mg Tablets Klor-Con M20 1 by mouth every 90tabs Dalia Bragg, 10/29/2018 20Meq day N.P. Tablets ER Methotrexate take 9 tablets 60tabs Justyn Gabriel, 10/19/2018 2.5mg by mouth one M.D. Tablets time weekly on fridays (avoid with antibiotics) Vitamin D-3 2 tablets by Haylee Cordero, 08/14/2018 1000Unit mouth daily M.D. Capsules Folic Acid take one 90tabs D64.9 Justyn Gabriel, 08/10/2018 1mg Tablets capsule/tablet M.D. daily by mouth Red Yeast Rice Extract Twice Daily Unknown 08/10/2017 600mg Capsules Fluticasone Propionate 1 squirts each 16gm J30.9 Haylee Cordero, 2014 nostril every M.D. 50mcg/Act Suspension day Ferrous Gluconate Take 1 Tablet By 60tabs D53.9 Britt Fitch, 11/28/2011 Mouth Two Times N.P. 324(38Fe) mg Tablets Daily Multivitamins 1 by mouth every Unknown Capsules day Carvedilol take 1 tablet by 180tabs I42.9 Qutaybeh S. 25mg Tablets mouth twice a Maghaydah, M.D. day I10 Tamoxifen Citrate Take 1 Tablet By Unknown 10mg Mouth Every Day Tablets Lisinopril 1 by mouth every 90tabs I42.9 Dalia Bragg, 40mg Tablets day N.P. I10 History Medications Plaquenil 1 by mouth 45tabs M05.79 Justyn Gabriel, 05/21/2019 - 200mg Tablets every day for 1 M.D. 05/21/2019 week then 2 by mouth daily ongoing Azithromycin 2 tabs by mouth 6tabs Justyn Gabriel, 05/21/2019 - 250mg Tablets on day 1; 1 tab M.D. 06/04/2019 by mouth every day on days 2-5 Prednisone Please take 4 60tabs M06.4 Jsutyn Gabriel, 05/15/2019 - 10mg Tablets tabs by mouth M.D. 07/03/2019 daily for 2 days then 3 tabs daily for 2 days then 2 tabs daily for 2 days then 1 tab daily ongoing Omeprazole 1 by mouth 30caps K29.00 Haylee Gil, 03/26/2019 - 20mg Capsules DR every day M.D. 06/04/2019 Amlodipine Besylate Every Day Unknown 03/19/2019 - 5mg 03/21/2019 Tablets Carvedilol Twice Daily Unknown 03/19/2019 - 25mg Tablets 03/21/2019 Folic Acid Every Day Unknown 03/19/2019 - 1mg Tablets 03/21/2019 Gabapentin Bedtime Unknown 03/19/2019 - 300mg Capsules 03/21/2019 Loratadine Every Day Unknown 03/19/2019 - 10mg Tablets 03/21/2019 Magnesium Oxide Twice Daily Unknown 03/19/2019 - 03/21/2019 400(241.3Mg) mg Tablets Methotrexate Sodium FR Unknown 03/19/2019 - 2.5mg 03/21/2019 Tablets Prednisone Once Daily With Unknown 03/19/2019 - 5mg Tablets Meal 03/21/2019 Tamoxifen Citrate Every Day Unknown 03/19/2019 - 10mg 03/21/2019 Tablets Venlafaxine HCL ER Every Day Unknown 03/19/2019 - 37.5mg 03/21/2019 Caps ER 24HR Zolpidem Tartrate Bedtime Unknown 03/19/2019 - 5mg 03/21/2019 Tablets Nitrofurantoin 1 by mouth 14caps N30.00 Haylee Cordero, 03/06/2019 - Macrocrystal twice a day X 7 M.D. 03/26/2019 100mg Capsules days Venlafaxine HCL once a day 30tabs N95.8 Haylee Cordero, 03/06/2019 - 37.5mg M.D. 03/26/2019 Tablets Immunizations CPT Code Status Date Vaccine Lot # [id number] Given 08/14/2018 Pneumococcal Conjugate Vaccine 13 Valent For [id number] Intramuscular Use 57503 Given 02/05/2018 Influenza Virus Vaccine, Quadrivalent, Split, Preservative Free 20912 Given 05/03/2016 Influ Virus Vaccine, Quadrivalent, Split Virus, [place] [id number] [address] Given 04/15/2015 Influenza Virus Vaccine, Quadrivalent, Split, [id number] Preservative Free [id number] Given 04/17/2012 Fluvirin Im 3Yrs And Older [id number] 96762 Given 01/02/2012 Tdap - Tetanus/Diptheria/Acellular Pertussis [id number] Vital Signs Date Vital Result Comment 07/11/2019 1:47pm Height 70 inches 5'10" Weight 190.00 lb Heart Rate 82 /min BP Systolic 135 mmHg BP Diastolic 92 mmHg O2 % BldC Oximetry 100 % BMI (Body Mass Index) 27.3 kg/m2 07/03/2019 2:55pm Height 70 inches 5'10" Weight 194.38 lb Heart Rate 82 /min BP Systolic Sitting 132 mmHg BP Diastolic Sitting 78 mmHg Body Temperature 96.6 F Pain Level 0 O2 % BldC Oximetry 98 % BMI (Body Mass Index) 27.9 kg/m2 Results Test Acquired Date Facility Test Result H/L Range Note Clinic Ua 07/11/2019 [facility] Glucose Ua negative Negative Bilirubin Ua negative Negative Ketone Ua negative Negative Specific [place] Ua 1.010 1.010-1.030 Blood Ua negative Negative PH Ua 7.5 5-9 Protein Ua negative Negative Urobilinogen Ua 0.2 0.2-1 Nitrite Ua negative Negative Leukocytes Ua negative Negative Laboratory test 07/02/2019 [facility] Blood Urea 19 mg/dL Normal 6-[address] [place] [address] [phone] Creatinine 07/02/2019 [facility] Creatinine 0.66 Normal 0.51- 0.[address] mg/dL 5 [place] [address] [phone] Egfr Non- 93.7 >60 Egfr 113.4 >60 1 Laboratory test 05/23/2019 [facility] Erythrocyte Sed 17 mm/Hr Normal 0-29 [address] [place] [address] [phone] C Reactive Protein 10.14 mg/L High <8.01 3 CBC Auto 05/23/2019 [facility] White Blood 5.9 10^3/uL Normal 3.5-10.[address] [place] [address] [phone] Red Blood Count 4.03 10^6/uL Normal 3.70-4.87 [...] Blood Cells % 0.0 Comp Metabolic 05/23/2019 [facility] Sodium 140 mmol/L Normal 135-145 Panel [address] [place] [address] [phone] Potassium 3.6 mmol/L Normal 3.5-5.0 Chloride 105 [...] Non- 87.9 >60 Egfr 106.3 >60 4 Comp Metabolic 05/04/2019 [facility] Sodium 139 mmol/L Normal 135-145 5 Panel [address] [place] [address] [phone] Potassium 4.1 mmol/L Normal 3.5-5.0 Chloride 105 [...] Egfr Non- 82.4 >60 Egfr 99.7 >60 6 CBC Auto 05/04/2019 [facility] White Blood 3.8 10^3/uL Normal 3.5-10.[address] [place] [address] [phone] Red Blood Count 4.10 10^6/uL Normal 3.70-4.87 [...] Red Blood Cells % 0.1 Laboratory test 05/04/2019 [facility] Erythrocyte Sed 28 mm/Hr Normal 0-29 [address] [place] [address] [phone] C Reactive Protein 1.02 mg/L Normal <8.01 8 Ova & Parasites 04/12/2019 [facility] Parasitic Exam, See Comment [address] [place] [address] [phone] Urinalysis Profile 04/03/2019 [facility] Urine Color Straw [address] [place] [address] [phone] Urine Appearance Clear Urine Specific [place] 1.009 Low 1.010-1.030 Urine pH 6.0 Normal [...] Cell Present Abnormal Absent Laboratory test 03/23/2019 [facility] Stool Culture SEE RESULT [address] [place] [address] [phone] Laboratory test 03/22/2019 [facility] Magnesium 1.7 mg/dL Low 1.9-[address] [place] [address] [phone] Comp Metabolic 03/19/2019 [facility] Sodium 139 mmol/L Normal 135-[address] [place] [address] [phone] Potassium 4.0 mmol/L Normal 3.5-5.0 Chloride 108 [...] Egfr 101.3 >60 11 Laboratory test 03/19/2019 [facility] Troponin-I (TnI) 0.01 ng/ mL <0.04 [address] [place] [address] [phone] Urinalysis 03/19/2019 [facility] Urine Color Straw Profile [address] [place] [address] [phone] Urine Appearance Clear Urine Specific [place] 1.008 Low 1.010-1.030 Urine pH 8.0 Normal 5-9 Urine Urobilinogen Negative Negative Urine Ketones Negative Negative Urine Protein Negative Negative Urine Leukocytes Negative Negative Urine Blood Negative Negative Urine Nitrite Negative Negative Urine Bilirubin Negative Negative Urine Glucose Negative Negative Laboratory 03/19/2019 [facility] D Dimer 442 ng/mL High Less 13 test finding [address] [place] [address] [phone] CBC Auto Diff 03/19/2019 [facility] White Blood 4.0 Normal 3.5 -10. [address] Count 10^3/uL 8 [place], [place] [id number] [phone] Red Blood Count 4.01 10^6/uL Normal 3.70-4.87 [...] Blood Cells % 0.0 Laboratory test 03/19/2019 [facility] Troponin-I 0.02 <0.04 [address] (TnI) ng/mL [place], [place] [address] [phone] Laboratory test 03/11/2019 [facility] Erythrocyte Sed 24 mm/Hr Normal 0-29 [address] [place] [address] [phone] C Reactive Protein < 1.00 mg/L Normal <8.01 16 Comp Metabolic 03/11/2019 [facility] Sodium 139 mmol/L Normal 135-[address] [place] [address] [phone] Potassium 4.0 mmol/L Normal 3.5-5.0 Chloride 106 [...] Egfr 115.8 >60 17 CBC Auto 03/11/2019 [facility] White Blood 3.3 10^3/uL Low 3.5 -10.[address] [place] [address] [phone] Red Blood Count 4.06 10^6/uL Normal 3.70-4.87 [...] % 0.0 Iron & Iron Binding 03/11/2019 [facility] Iron 103 g/dL Normal 50-[address] [place] [address] [phone] Unsaturated Iron Binding < 342 g/dL Total Iron Binding Capacity 357 g/dL Normal 250-450 Transferrin 255 mg/dL Normal 203-362 % Iron Saturation 29 % Normal 15-55 Laboratory test 03/11/2019 [facility] Ferritin 132.0 Normal 11 -307 [address] ng/[place] [address] [phone] Ua Routine 03/06/2019 [facility] In House Ua Specific 1.015 [place] Ua PH 5 Ua Color light yellow Ua Appera clear Ua WBC - Ua Protein - Ua Glucose norm Ua Ketones - Ua Bilirubin - Ua Urobilinogen - Ua Nitrite - Ua Occult Blood 250 Urine Culture And 03/06/2019 [facility] Urine Culture SEE RESULT 19, [address] [place] [address] [phone] 1 Because ethnic data is not always [...] dialysis) 5 Please check labs today 6 Because ethnic data is not always readily [...] 15-29 5 Kidney failure <15 (or dialysis) 7 Please check labs today 8 Please check labs today 9 SOURCE: STOOL PARASITIC EXAMINATION FINAL No parasites seen. Cryptosporidium, Cyclospora, and microsporidia are not readily detected by this method. Single negative specimen does not rule out parasitic infection. Test Performed by: [address] [address] [facility]: Bairon Monterroso M.D. Ph.D.; CLIA# [id number] 10 SEE RESULT BELOW Name: ONEIDA REESE : [address]: Tracy King MD Acct: [id number] Unit: [id number] AGE: 53 Location: [facility] Re03/23/19 SEX: F Status: REG REF SPEC: [id number] LATASHA: 03/23/[address]: Tracy King MD REQ: [id number] RECD: 03/23/19 STATUS: COMP _ SOURCE: STOOL [...] . END OF REPORT DEPARTMENT OF PATHOLOGY, [address] [place] [address] Silvestre Collier M.D. Director [facility] # [id number] 11 Because ethnic data is not always [...] dialysis) 18 Please check labs today 19 [id number] 20 SEE RESULT BELOW Name: NOEIDA REESE : [address]: Haylee Cordero MD Acct: [id number] Unit: [id number] AGE: 53 Location: [facility] Re03/06/19 SEX: F Status: REG REF SPEC: [id number] LATASHA: 03/06/19 DR: Haylee Cordero MD REQ: [id number] RECD: 03/07/19 STATUS: COMP _ SOURCE: URINE SPDESC: ORDERED: Urine Culture COMMENTS: [id number] Urine Source: Random Procedure Result Reported Site Urine Culture Final 03/08/19- 1217 ML No Growth (<1,000 CFU/mL) * ML - Main Lab . END OF REPORT DEPARTMENT OF PATHOLOGY, [address] [place] [address] Silvestre Collier M.D. Director [facility] # [id number] Procedures Date Code Description Status 08/20/2018 504941437 Bone Mineral Density Test Completed 08/28/2017 [id number] Mammogram Completed 08/17/2017 [id number] Mammogram Completed 07/13/2017 [id number] Mammogram Completed 03/16/2017 48674100 Colonoscopy Completed 05/20/2016 [id number] Mammogram Completed 05/07/2015 [id number] Mammogram Completed 01/23/2013 17582255 Mammogram Completed 01/06/2012 31425066 Mammogram Completed Medical Devices Description No Information Available Encounters Type Date Location Provider Dx Diagnosis Office Visit 07/03/2019 Rheumatology Justyn Gabriel M05.79 Rheu arthritis w 2:40p [facility] factor monica site w/o org/sys involv Z79.899 Other prison (current) drug therapy Office Visit 06/25/2019 11:15a [facility] Kendall 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 valgus deformities of feet M05.79 Rheu arthritis w rheu factor mult site w/o org/sys involv Office Visit 06/05/2019 4:00p [facility] Rufino Alejandro, R14.0 Abdominal Medicine - [facility]cm[facility] AUDIO VISUAL AIDE distension (gaseous) R11.0 Nausea R10.814 Left lower quadrant abdominal tenderness Office Visit 05/21/2019 11:00a Rheumatology Justyn Gabriel M05.79 Rheu arthritis [facility] w rheu factor mult site w/o org/sys involv Z79.899 Other long term care administrator (current) drug therapy J01.90 Acute sinusitis, unspecified M79.672 Pain in left foot Office Visit 05/09/2019 4:00p [facility] Krystyna Ayala, Z01.419 Encntr for registration representative [facility] MD exam (general) (routine) w/o abn findings Z85.3 Personal history of malignant neoplasm of breast G47.00 Insomnia, unspecified Office Visit 05/04/2019 11:00a Rheumatology Justyn Gabriel, M05.79 Rheu arthritis [facility] Shanta w rheu factor mult site w/o org/sys involv D50.9 Iron deficiency anemia, unspecified Z79.899 Other prison (current) drug therapy M25.461 Effusion, right knee Office Visit 04/08/2019 11:50a [facility] Haylee R19.7 Diarrhea, Jamie - Suad Cordero M.D. unspecified F51.02 Adjustment insomnia Office Visit 03/26/2019 2:20p [facility] Haylee G47.00 Insomnia, Jamie Cordero M.D. unspecified Ccmob N95.8 Other specified menopausal and perimenopausal disorders K29.00 Acute gastritis without bleeding Z79.899 Other long term care administrator (current) drug therapy Office Visit 03/22/2019 10:00a [facility] Dalia S. I10 Essential ( primary) [facility] Yemi, N.P. hypertension I42.9 Cardiomyopathy, unspecified R00.2 Palpitations Office Visit 03/06/2019 2:20p [facility] Haylee Gil, N30.00 Acute cystitis Medicine Kacy Borjas M.D. without hematuria M25.512 Pain in left shoulder N95.8 Other specified menopausal and perimenopausal disorders Office Visit 02/14/2019 3:00p [facility] Dalia S. I10 Essential ( primary) [facility] Yemi, N.P. hypertension I42.9 Cardiomyopathy, unspecified R00.2 Palpitations Office Visit 01/30/2019 4:20p Rheumatology Justyn Gabriel, M05.79 Rheu arthritis [facility] Shanta w rheu factor mult site w/o org/sys involv Z79.899 Other long term care administrator (current) drug therapy D50.9 Iron deficiency anemia, unspecified Office Visit 01/22/2019 11:00a [facility] Roula Sandoval, N95.1 Menopausal and [facility] N.P. female climacteric states N76.0 Acute vaginitis Z85.3 Personal history of malignant neoplasm of breast Z79.899 Other long term care administrator (current) drug therapy Assessments Date Code Description Provider 07/11/2019 N76.0 Acute vaginitis Krystyna Ayala MD 07/03/2019 M05.79 Rheumatoid arthritis with rheumatoid factor Justyn Gabriel M.D. of multiple site 07/03/2019 Z79.899 Other long term care administrator (current) drug therapy Justyn Gabriel M.D. 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 06/25/2019 M05.79 Rheumatoid arthritis with rheumatoid factor Kendall Calhoun M.D. of multiple site 06/05/2019 R14.0 Abdominal distension (gaseous) Rufinobenedicto Allen, AUDIO VISUAL AIDE 06/05/2019 R11.0 Nausea Rufinobenedicto Allen, AUDIO VISUAL AIDE 06/05/2019 R10.814 Left lower quadrant abdominal tenderness Rufino Allen NP 05/21/2019 M05.79 Rheumatoid arthritis with rheumatoid factor Justyn Gabriel M.D. of [facility] 05/21/2019 Z79.899 Other long term care administrator (current) drug therapy Justyn Gabriel M.D. 05/21/2019 [...] with rheumatoid factor Justyn Gabriel M.D. of [facility] 05/04/2019 D50.9 Iron deficiency anemia, unspecified Justyn Gabriel M.D. 05/04/2019 Z79.899 Other prison (current) drug therapy Justyn Gabriel M.D. 05/04/2019 M25.461 Effusion, right knee Justyn Gabriel M.D. 04/08/2019 R19.7 Diarrhea, unspecified Haylee Cordero M.D. 04/08/2019 F51.02 Adjustment insomnia Haylee Cordero M.D. 03/26/2019 G47.00 Insomnia, unspecified Haylee Cordero M.D. 03/26/2019 N95.8 Other specified menopausal and perimenopausal Haylee Cordero M.D. disorders 03/26/2019 K29.00 Acute gastritis without bleeding Haylee Cordero M.D. 03/26/2019 Z79.899 Other prison (current) drug therapy Haylee Cordero M.D. 03/22/2019 I10 Essential (primary) hypertension Dalia Bragg, N.P. 03/22/2019 I42.9 Cardiomyopathy, unspecified Dalia SSelina Bragg, N.P. 03/22/2019 R00.2 Palpitations Dalia Bragg N.P. 03/06/2019 N30.00 Acute cystitis without hematuria Haylee Cordero M.D. 03/06/2019 M25.512 Pain in left shoulder Haylee Cordero M.D. 03/06/2019 N95.8 Other specified menopausal and perimenopausal Haylee Cordero M.D. disorders 02/14/2019 I10 Essential (primary) hypertension Dalia SSelina Bragg, N.P. 02/14/2019 I42.9 Cardiomyopathy, unspecified Dalia SSelina Bragg, N.P. 02/14/2019 R00.2 Palpitations Dalia SSelina Bragg, N.P. 01/30/2019 M05.79 Rheumatoid arthritis with rheumatoid factor Justyn Gabriel M.D. of [facility] 01/30/2019 Z79.899 Other long term care administrator (current) drug therapy Justyn Gabriel M.D. 01/30/2019 D50.9 Iron deficiency anemia, unspecified Justyn Gabriel M.D. 01/22/2019 N95.1 Menopausal and female climacteric states Roula Sandoval N.P. 01/22/2019 N76.0 Acute vaginitis Roula Sandoval N.P. 01/22/2019 Z85.3 Personal history of malignant neoplasm of Roula Sandoval N.P. breast 01/22/2019 Z79.899 Other long term care administrator (current) drug therapy Roula Sandoval N.P. Plan of Treatment Future Appointment(s):09/02/2019 3:40 pm - Justyn Gabriel M.D. at [facility]07/11/2019 - Krystyna Ayala MDN76.0 Acute vaginitis Functional Status Description No Information Available Mental Status Description No Information Available Referrals Refer to Reason for Referral Status Appt Date [facility] Received Partial 07/17/2019 [address] [place] [address] [phone] Glendy Freire, BALANCE STAFF STAKER-C Sent [address], [place] [address] [phone]
--- OUTSIDE RECORDS SUMMARY | 2019-08-14 09:02 | XMS REPORT | Continuity of Care Document ---
:1965 External Reference #:[id number] Author Name Kelsea Mcdonald PA-C Address [address] [place], [place] [address] Care Team Providers Name Role Phone Rufino Allen FNP Care Team Information Steel Buffer [phone] Problems Active Problems Provider Date Flatulence, eructation [...] Maite Samuel MD 20mg Tablets Amlodipine Besylate Darius Bragga,WALL INSULATION SPRAYER 10mg Tablets Zolpidem Tartrate Take 1 Tablet By Unknown 5mg Mouth AT Bedtime -- Tablets Maximum Daily Dose Of 1 Per Day Folic Acid Take 1 Tablet By Unknown 1mg Tablets Mouth Every Day Ferrous Gluconate Britt Fitch,WALL INSULATION SPRAYER 324(38Fe) mg Tablets Carvedilol Take 1 Tablet By Unknown 25mg Tablets Mouth Two Times Daily Lisinopril Take 1 Tablet By Unknown 40mg Tablets Mouth Every Day Slow-Mag YemiDalia,WALL INSULATION SPRAYER 71.5-119mg Tablets DR Paroxetine HCL Take 1 [...] Test Result H/L Range Note Laboratory test 07/27/2019 [facility] Fecal Lactoferrin SEE RESULT 1 finding (Stool WBC) BELOW 1 SEE RESULT BELOW Name: ONEIDA REESE : [address]: Kelsea SANTIAGO Acct: [id number] Unit: [id number] AGE: 54 Location: [facility] Re07/27/19 SEX: F Status: REG REF SPEC: [id number] LATASHA: 07/27/19-[address] [facility] [address]: Kelsea SANTIAGO REQ: [id number] RECD: 07/27/19 STATUS: COMP _ SOURCE: STOOL SPDESC: ORDERED: [...] . END OF REPORT DEPARTMENT OF PATHOLOGY, [address] [place] [address] Silvestre Collier M.D. Director [facility] # [id number] Procedures Description No Information Available Medical Devices [...] 11:45 am - Mushtaq Anderson MD at [facility]07/25/2019 - MINESH BarronCR10.84 Generalized abdominal painK21.9 Gastro-esophageal reflux disease without sqlufeqtxycH62.10 Dysphagia, suurhkgwmzdB41.4 Change in bowel ngpjwV23.9 Anemia , olmfauxmlrbV47.0 Abdominal distension (gaseous) Functional Status Description No Information Available Mental Status Description No Information Available Referrals Description No Information Available
--- NOTE | 2019-08-14 09:08 | ED ---
GI/ HPI - HPI Summary HPI Summary: 54 year old F with hx anemia, cardiomyopathy, hypertension, arthritis referred to [facility] by her GI office accompanied by son complains of bloody stools starting this morning. No hx bloody stools or rectal bleeding. This morning, patient developed headache and light headedness. She went to the bathroom and noticed bright red blood when she wiped. She reports abdominal cramping rated 6/ 10 in severity. Symptoms aggravated by nothing. Symptoms alleviated by nothing. Patient is fasting currently for judaism purposes. Patient is followed by Dr. Anderson. She called his office this morning and was referred to the ED. Had EGD on 08/08/2928 for abdominal pain which showed erosions in the stomach. She had biopsies. She had CT done in Jun 2018 which showed hypodensities in the liver. Medications reviewed. Allergies noted. - History of Current Complaint Chief Complaint: EDGIBleed Time Seen by Provider: 08/14/19 09:04 Stated Complaint: RECTAL BLEEDING PER PT Hx Obtained From: Patient, Medical Records Onset/Duration: Started Hours Ago, Still Present Timing: Constant Current Severity: Moderate Pain Intensity: 6 Associated Signs and Symptoms: Positive: Other: - headache, light headedness, abdominal pain Aggravating Factor(s): Nothing Alleviating Factor(s): Nothing - Additional Pertinent History Primary Care Physician: [id number] - Allergy/Home Medications Allergies/Adverse Reactions: Allergies Allergy/AdvReac Type Severity Reaction Status Date / Time shrimp Allergy Severe Swelling Verified 08/14/19 08:52 Of Face,Lips,& Throat Home Medications: Home Medications Multivitamins/Minerals TAB* [Theragran/minerals TAB*] 1 tab PO DAILY 01/25/16 [ History Confirmed 08/14/19] Red Yeast Rice 600 mg PO BID 08/10/17 [History Confirmed 08/14/19] Ferrous Gluconate TAB* [Fergon TAB*] 324 mg PO BID 08/14/17 [History Confirmed 08/14/19] Fluticasone NASAL SPRAY 50MCG* [Flonase NASAL SPRAY 50MCG*] 1 spray BOTH NARES DAILY 08/14/17 [History Confirmed 08/14/19] Lisinopril TAB* [Prinivil TAB 10 MG*] 40 mg PO DAILY 08/14/17 [History Confirmed 08/14/19] Potassium Chlor TAB* [Potassium Chlor TAB 20 MEQ*] 20 meq PO DAILY 01/07/19 [ History Confirmed 08/14/19] Carvedilol TAB* [Coreg TAB*] 25 mg PO BID 03/19/19 [History Confirmed 08/14/19] Cholecalciferol (Vitamin D3) [Vitamin D3] 2,000 unit PO DAILY 03/19/19 [History Confirmed 08/14/19] Folic Acid TAB* [Folvite TAB*] 1 mg PO DAILY 03/19/19 [History Confirmed ] Methotrexate TAB* 22.5 mg PO FR 03/19/19 [History Confirmed 08/14/19] Tamoxifen TAB* [Nolvadex*] 10 mg PO DAILY 03/19/19 [History Confirmed 08/14/19] Zolpidem TAB* [Ambien TAB*] 5 mg PO BEDTIME PRN 03/19/19 [History Confirmed ] amLODIPine TAB* [Norvasc 5 mg TAB*] 10 mg PO DAILY 03/19/19 [History Confirmed 08/14/19] Magnesium Chloride EC TAB* [Slow Mag EC TAB*] 71.5 mg PO BID 08/14/19 [History Confirmed 08/14/19] Omeprazole CAP (NF) [Prilosec CAP* 20 MG] 20 mg PO DAILY 08/14/19 [History Confirmed 08/14/19] predniSONE 1 mg TAB [Deltasone 1 MG TAB*] 7.5 mg PO DAILY 08/14/19 [History Confirmed 08/14/19] PMH/Surg Hx/FS Hx/Imm Hx Endocrine/Hematology History: Reports: Hx Anemia - Taking iron for Denies: Hx Anticoagulant Therapy, Hx Bone Marrow Disease, Hx Diabetes, Hx Systemic Lupus Erythematosus, Hx Sickle Cell Disease, Hx Thyroid Disease Cardiovascular History: Reports: Hx Hypertension, Other Cardiovascular Problems/ Disorders - post CARDIO MYOPATHY - follows w/ maghaydah Denies: Hx Aneurysm, Hx Angina, Hx Cardiomegaly, Hx Congestive Heart Failure , Hx Coronary Artery Disease, Hx Myocardial Infarction, Hx Pacemaker/ICD, Hx Peripheral Vascular Disease, Hx Rheumatic Fever, Hx Valvular Heart Disease Respiratory History: Denies: Hx Asthma, Hx Chronic Obstructive Pulmonary Disease (COPD), Hx Pulmonary Edema, Hx Pulmonary Embolism, Hx Sleep Apnea, Other Respiratory Problems/Disorders GI History: Denies: Hx Cirrhosis, Hx Crohn's Disease, Hx Gastroesophageal Reflux Disease , Hx Hiatal Hernia, Hx Irritable Bowel, Hx Jaundice, Hx Ulcer, Other GI Disorders History: Reports: Other Problems/Disorders - ovarian cyst hx, uterine fibroids Denies: Hx Dialysis, Hx Kidney Infection, Hx Kidney Stones, Hx Renal Disease Musculoskeletal History: Reports: Hx Rheumatoid Arthritis, Hx Tendonitis - right foot Denies: Hx Bursitis, Other Musculoskeletal History Sensory History: Reports: Hx Contacts or Glasses - wears reading glasses Denies: Hx Cataracts, Hx Glaucoma, Hx Hearing Aid Opthamlomology History: Reports: Hx Contacts or Glasses - wears reading glasses Denies: Hx Cataracts, Hx Glaucoma Neurological History: Denies: Hx Dementia, Hx Headaches, Hx Migraine, Hx Nerve Disease, Hx Seizures , Other Neuro Impairments/Disorders Psychiatric History: Reports: Hx Anxiety - pt not taking medication for Denies: Hx Depression, Hx Substance Abuse - Cancer History Cancer Type, Location and Year: breast CA Hx Chemotherapy: Yes - Pt had chemo last december 2017, radiation in 2018 Hx Radiation Therapy: No - Surgical History Surgery Procedure, Year, and Place: Bilateral knee surgeries age 13,. right foot bunion rapair. Left mastectomy- November 2017. hammer toe 2018 Hx Anesthesia Reactions: No Infectious Disease History: No Infectious Disease History: Reports: Hx Clostridium Difficile Denies: Hx Hepatitis, Traveled Outside the [place] in Last 30 Days - Family History Known Family History: Positive: Hypertension, Diabetes Family History: breast CA - Social History Alcohol Use: None Hx Substance Use: No Substance Use Type: Reports: None Hx Tobacco Use: No Smoking Status (MU): Never Smoked Tobacco Have You Smoked in the Last Year: No Review of Systems Positive: Abdominal Pain, Other - bloody stools Neurological/Mental Status: Other - light headedness Positive: Headache All Other Systems Reviewed And Are Negative: Yes Physical Exam - Summary Physical Exam Summary: Constitutional: Well-developed, Well-nourished, Alert. (-) Distressed Skin: Warm, Dry HENT: Normocephalic; Atraumatic Eyes: Conjunctiva normal Neck: Musculoskeletal ROM normal neck. (-) JVD, (-) Stridor, (-) Nuchal rigidity Cardio: Rhythm regular, rate normal, Heart sounds normal; Intact distal pulses; Radial pulses are 2+ and symmetric. (-) Murmur Pulmonary/Chest wall: Effort normal. (-) Respiratory distress, (-) Wheezes, (-) Rales Abd: Soft, mild generalized abdominal tenderness, (-) Distension, (-) Guarding, (-) Rebound Rectal exam chaperoned by Kortney Justin: She has external hemorrhoids, blood on stool Musculoskeletal: (-) Edema Lymph: (-) Cervical adenopathy Neuro: Alert, Oriented x3 Psych: Mood and affect Normal Triage Information Reviewed: Yes Vital Signs On Initial Exam: Initial Vitals Temp Pulse Resp BP Pulse Ox 97.7 F 77 16 138/92 100 08/14/19 08:50 08/14/19 08:50 08/14/19 08:50 08/14/19 08:50 08/14/19 08:50 Vital Signs Reviewed: Yes Procedures - Sedation Patient Received Moderate/Deep Sedation with Procedure: No Diagnostics - Vital Signs Vital Signs Temp Pulse Resp BP Pulse Ox 08/14/19 08:50 97.7 F 77 16 138/92 100 - Laboratory Result Diagrams: 08/14/19 09:28 08/14/19 09:28 Lab Statement: Any lab studies that have been ordered have been reviewed, and results considered in the medical decision making process. - Radiology CXR Radiology Interpretation Completed By: Radiologist - IMPRESSION: NO ACTIVE CARDIOPULMONARY DISEASE. NO APPRECIABLE SUBPHRENIC GAS. ED physician has reviewed this imaging report. Re-Evaluation - Re-Evaluation First Eval Re-Evaluation Time: 10:34 Change: Improved - patient agrees to d/c GIGU Course/Dx - Course Course Of Treatment: 54 y/o F p/w lightheadedness and blood in stool. - VSS NAD. Exam w abd soft, rectal w scant blood. Labs notable for stable Hb. CXR w/o free air do not suspect free air. Patient is fasting for judaism purposes which could be contributing to lightheadedness. Has been tolerating PO fine as of yesterday. D/w GI, can follow up PRN - Diagnoses Provider Diagnoses: Blood in stool, Light headedness - Physician Notifications Discussed Care Of Patient With: Bhupendra Jones Time Discussed With Above Provider: 09:22 Instructed by Provider To: Other - Dr. Jones requests that we discuss with Dr. Anderson. 0924 Dr. Anderson agrees with plan. Discharge ED - Sign-Out/Discharge Documenting (check all that apply): Patient Departure - Discharge Plan Condition: Stable Disposition: HOME Patient Education Materials: Lightheadedness (ED), Melena (ED) Referrals: Mushtaq Anderson MD [Medical Doctor] - If Needed Additional Instructions: You were seen in the emergency department for in your stool. Your labs did not show any significant drop in your blood counts. Please follow up with GI. Please follow up with your primary care doctor in next 2-3 days and return to emergency department for worsening pain, passing out, increase in blood in the stool, or concerning symptoms. It was a pleasure taking care of you today. - Billing Disposition and Condition Condition: STABLE Disposition: Home - Attestation Statements Document Initiated by Fanyibe: Yes Documenting Scribe: Marija Lockett Provider For Whom [place] is Documenting (Include Credential): Hernando Daniel MD Scribe Attestation: IMarija, scribed for Hernando Daniel MD on 08/14/19 at 1055. Scribe Documentation Reviewed: Yes Provider Attestation: The documentation as recorded by the scribeMarija accurately reflects the service I personally performed and the decisions made by me, Hernando Daniel MD Status of Scribe Document: Viewed
[2019-08-14 09:34] LABS: ABS Eosinophils 0.1 10^3/ul (0-0.6); ABS Lymphocytes 1.4 10^3/ul (1.0-4.8); ABS Monocytes 0.4 10^3/ul (0-0.8); ABS Neutrophils 2.9 10^3/ul (1.5-7.7); Eosinophil % 2.5 %; Hematocrit 34 % (35-47); Hemoglobin 11.9 g/dL (12.0-16.0); Lymphocyte % 29.5 %; Mean Corpuscular HGB Conc 35 g/dL (31-36); Mean Corpuscular Hemoglobin 29 pg (27-31); Mean Corpuscular Volume 84 fL (80-97); Mean Platelet Volume 6.3 fL (7.4-10.4); Nucleated Red Blood Cells % 0.1; Platelet Count 226 10^3/uL (150-450); Red Blood Count 4.07 10^6 /uL (3.70-4.87); Red Cell Distribution Width 14 % (10-15); White Blood Count 4.9 10^3/uL (3.5-10.8)
[2019-08-14 09:50] LABS: Albumin 4.3 g/dL (3.2-5.2); Albumin/Globulin Ratio 1.6 (1-3); BUN/Creatinine Ratio 32.8 (8-20); Calcium 9.5 mg/dL (8.6-10.3); EGFR African American 124.1 (>60); EGFR Non-African American 102.6 (>60); Globulin 2.7 g/dL (2-4); Potassium 3.5 mmol/L (3.5-5.0); Total Bilirubin 0.4 mg/dL (0.2-1.0)
[2019-08-14 10:52] VITALS: BP 126/86
== END 2019-08-14 11:05 | disposition home or self-care (01) ==
LOC: ED 08:48
DX: K92.1 Melena (principal); R42 Dizziness and giddiness; D64.9 Anemia, unspecified; I10 Essential (primary) hypertension; F41.9 Anxiety disorder, unspecified; Z85.3 Personal history of malignant neoplasm of breast; Z90.12 Acquired absence of left breast and nipple; Z79.899 Other long term (current) drug therapy
CPT/HCPCS: 36415; 71046; 80053; 82270; 85025; 86850; 86900; 86901; 99283